=== PATIENT | female | born 1940 | race Caucasian/White ===

== ENCOUNTER 2016-06-18 07:48 | Emergency (ER) | payer BC ==
[~2016-06-18] VITALS: Ht 162.6 cm; Wt 100.6 kg
[~2016-06-18 07:48] MED LIST: ASPEC81 PO; CYAN10005 PO; INSDGI SC; LISI-725 PO; MAGN400T6 PO; METO50TA7 PO; NVLGI SC; PENT400T PO; SIMV40TA2 PO
[2016-06-18 07:57] VITALS: TEMP 37.6; Ht 162.6 cm; Wt 100.6 kg
[2016-06-18] MEDS ORDERED: POTA8CAP6 PO (08:22)
[2016-06-18] MEDS ORDERED: MAGNTAB4 PO (08:22)
[2016-06-18] MEDS ORDERED: INSDGI SC (08:22)
[2016-06-18] MEDS ORDERED: FURO-85 PO (08:22)
[2016-06-18] MEDS ORDERED: NVLG SC (08:22)
[2016-06-18] MEDS ORDERED: ASPI-435 (08:22)
[2016-06-18] MEDS ORDERED: ATOR10TA88 PO (08:22)
--- NOTE | 2016-06-18 08:41 | DIAGNOSTIC IMAGING REPORT ---
CHEST 2 VIEWS ROUTINE CLINICAL HISTORY: Cough. COMPARISON STUDY: Chest radiograph April 26, 2009. FINDINGS: Lung volumes are normal. There is no pneumothorax or pleural effusion. There are median sternotomy wires and clips from bypass grafting. There is no evidence of pulmonary edema. Linear left lung opacities favor atelectasis or scarring. There is no consolidation to suggest pneumonia. Cardiomegaly is unchanged. IMPRESSION: 1. No acute findings. 2. Linear left lung opacities suggestive of atelectasis or scarring. 3. Mild cardiomegaly without evidence of pulmonary edema. Electronically signed by: Jose Wong M.D. 06/18/2016 8:40 AM Dictated Date/Time: 06/18/2016 8:37 AM
[2016-06-18 08:45] LABS: HEMATOCRIT 37.9 % (37-47); MEAN CORPUSCULAR HEMOGLOBIN 32.8 pg (25-34); MEAN CORPUSCULAR HGB CONC 35.6 g/dl (32-36); MEAN PLATELET VOLUME 8.8 fL (7.4-10.4); PLATELET COUNT 223 K/uL (130-400); RED BLOOD COUNT 4.12 M/uL (4.2-5.4)
[2016-06-18 09:02] LABS: BUN/CREATININE RATIO 10.7 (10-20); CALCIUM 10.2 mg/dl (8.5-10.1); CREATININE 1.6 mg/dl (0.60-1.20); POTASSIUM 3.8 mmol/L (3.5-5.1)
[2016-06-18] MEDS ORDERED: VNTHFA/IN INH (09:17)
[2016-06-18] MEDS ORDERED: AZITTAB PO (09:17)
[2016-06-18] MEDS ORDERED: POLYSOL3 OPB (09:17)
[2016-06-18 09:18] LABS: BASO % 0.2 %; BASO ABS # 0.02 K/uL (0-0.2); COMPLETE YES; EOS % 1.3 %; IG% 0.2 %; LYMPH % 14.3 %; LYMPH ABS # 1.32 K/uL (1.2-3.4); MONO % 7.5 %; NEUT % 76.5 %
--- NOTE | 2016-06-18 09:18 | EMERGENCY ROOM VISIT NOTE ---
History First contact with patient: 08:04 Chief Complaint: COUGH Stated Complaint: COUGH,SORE THROAT Nursing Triage Summary: pt reports cough, congestio , watery eyes , with yellow green mucus production since night History of Present Illness The patient is a 75 year old female who presents to the Emergency Room with complaints of productive cough which started evening. She states she is coughing up some yellow-green sputum. She states that her throat is irritated due to the cough but is able to swallow fluids without difficulty. The patient also admits to runny nose and both her eyes being watery with her left eye being matted checked this morning. The patient is not known if she has had a fever because she went to use her thermometer and the battery was . The patient has not experienced any chills. The patient denies any chest pain or shortness of breath. The patient denies any diffuse body aches. Review of Systems 10 system review was performed and was negative unless stated otherwise history of present illness. Past Medical/Surgical History Diabetes, hypertension, heart disease, cholecystectomy, heart surgery, cataract surgery, trigger finger surgery 2 Social History Smoking Status: Never Smoker Alcohol Use: none Marital Status: single Housing Status: lives alone Occupation Status: retired Current/Historical Medications Scheduled Atorvastatin (Lipitor), 1 TAB PO DAILY Cyanocobalamin (Vitamin B-12), 1,000 MCG PO DAILY Furosemide (Lasix), 1 TAB PO DAILY Insulin Aspart (Novolog), 8 UNITS SC TIDM Insulin Glargine (Lantus), 10 UNITS SC HS Magnesium Chloride (Slow-Mag Tab), 64 MG PO DAILY Magnesium Oxide (Mag-Ox), 400 MG PO TID Metoprolol Succ (Toprol Xl) (Toprol-Xl), 50 MG PO HS Potassium Chloride (Klor-Con Ext Rel), 8 MEQ PO DAILY Miscellaneous Medications Aspirin (Aspirin 81) Allergies Coded Allergies: No Known Allergies (Verified , 07/05/06) Physical Exam Vital Signs Date Time Temp Pulse Resp B/P Pulse Ox O2 Delivery O2 Flow Rate FiO2 06/18/16 07:57 37.6 87 18 163/86 95 Room Air Physical Exam PHYSICAL EXAM: Vital Signs were reviewed: Temperature 37.6, blood pressure 163/ 86, pulse rate 87, respiratory rate 18 Reviewed Nurse's notes and agree. Oxygen saturation is 95 % on room air which is normal . GENERAL: 75 year old white female appears in no acute distress. MENTAL STATUS: Alert, oriented, coherent. EARS: Canals clear. TMs good light reflex, no erythema or fluid level noted. EYES: Left eye with redness and purulent drainage noted. Right eye with redness but no visible drainage. NOSE: Nasal mucosa with moderate erythema engorgement. PHARYNX: No erythema, no edema noted. No exudate noted. Airway is adequate. NECK: Supple, non-tender. No lymphadenopathy noted. LUNGS: Clear to auscultation without wheezes rales or rhonchi. The patient has a deep congested cough and ultimately throughout clinical encounter. CARDIAC: Regular rate and rhythm without murmur. SKIN: No rashes noted. Medical Decision & Procedures ER Provider Diagnostic Interpretation: CHEST 2 VIEWS ROUTINE CLINICAL HISTORY: Cough. COMPARISON STUDY: Chest radiograph April 26, 2009. FINDINGS: Lung volumes are normal. There is no pneumothorax or pleural effusion. There are median sternotomy wires and clips from bypass grafting. There is no evidence of pulmonary edema. Linear left lung opacities favor atelectasis or scarring. There is no consolidation to suggest pneumonia. Cardiomegaly is unchanged. IMPRESSION: 1. No acute findings. 2. Linear left lung opacities suggestive of atelectasis or scarring. 3. Mild cardiomegaly without evidence of pulmonary edema. Electronically signed by: Jose Wong M.D. 06/18/2016 8:40 AM Dictated Date/Time: 06/18/2016 8:37 AM Laboratory Results 06/18/16 08:10 Red Blood Count 4.12, Mean Corpuscular Volume 92.0, Mean Corpuscular Hemoglobin 32.8, Mean Corpuscular Hemoglobin Concent 35.6, Mean Platelet Volume 8.8 06/18/16 08:10 Test 06/18/16 08:10 White Blood Count 9.20 K/uL (4.8-10.8) Red Blood Count 4.12 M/uL (4.2-5.4) Hemoglobin 13.5 g/dL (12.0-16.0) Hematocrit 37.9 % (37-47) Mean Corpuscular Volume 92.0 fL (80-100) Mean Corpuscular Hemoglobin 32.8 pg (25-34) Mean Corpuscular Hemoglobin Concent 35.6 g/dl (32-36) Platelet Count 223 K/uL (130-400) Mean Platelet Volume 8.8 fL (7.4-10.4) RDW Standard Deviation 44.2 fL (36.4-46.3) RDW Coefficient of Variation 13.2 % (11.5-14.5) Anion Gap 11.0 mmol/L (3-11) Est Creatinine Clear Calc Drug Dose 35.6 ml/min Estimated GFR () 36.4 Estimated GFR (Non- 31.4 BUN/Creatinine Ratio 10.7 (10-20) Calcium Level 10.2 mg/dl (8.5-10.1) ED Course The patient was evaluated. IV access was obtained. CBC and differential and renal profile was ordered. Chest x-ray was ordered and interpreted by the radiologist myself as above had any acute findings.. Labs are reviewed and were unremarkable. The patient was independently evaluated by who agrees with treatment plan. The patient was discharged home in stable condition. Impression Primary Impression: Bacterial conjunctivitis of both eyes Additional Impression: Acute bronchitis Departure Information Dispostion Home / Self-Care Condition GOOD Prescriptions Albuterol Hfa (VENTOLIN HFA) 200 Puffs/77748 Mcg Aers 2 PUFFS INH QID for 5 Days, #1 INHALER Prov: Yesica Daley PA-C 06/18/16 Azithromycin (ZITHROMAX Z-CRISTIAN) 250 Mg Tab 0 PO UD, #1 PKT Prov: Yesica Daley PA-C 06/18/16 Polymyxin B-Trimethoprim (POLYTRIM OPH IVANA) 1 Ivana Ivana 1 DROPS OPB Q3hrs for 7 Days, #10 ML Prov: Yesica Daley PA-C 06/18/16 Referrals Demi Seymour M.D. (PCP) Forms HOME CARE DOCUMENTATION FORM, IMPORTANT VISIT INFORMATION Patient Instructions Bronchitis Acute, [facility] Additional Instructions Tylenol as needed for fever. Take Z-Cristian as directed. Use albuterol inhaler 2 puffs every 4 hours for 5 days then 2 puffs every 4 hours as needed. Recommend [id number] plain Mucinex as directed on the label. Use the Polytrim eyedrops as directed 1 drop into each eye every 3 hours while awake for 7 days. Frequent handwashing. Follow up with your family doctor in 2 days for recheck. If symptoms worsen in the interim, return to ER. Problem Qualifiers Additional Impression: Acute bronchitis Bronchitis organism: unspecified organism Qualified Codes: J20.9 - Acute bronchitis, unspecified
--- NOTE | 2016-06-18 09:31 | EMERGENCY ROOM VISIT NOTE ---
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 75-year-old presents consistent with viral syndrome and likely secondary bacterial infection characterized by conjunctivitis. She does not or glasses. Coarse sounding lungs. There is management and plan for Z-Cristian as well as antibiotics for conjunctivitis complemented by albuterol MDI when necessary.
[2016-06-18 09:35] VITALS: BP 147/70; PULSE 85; O2SAT 93
== END 2016-06-18 09:36 | disposition home or self-care (01) ==
LOC: C.EDB 07:49 → C.EDA 09:36
DX: J20.9 Acute bronchitis, unspecified (principal); E11.9 Type 2 diabetes mellitus without complications; I10 Essential (primary) hypertension; I51.9 Heart disease, unspecified; Z90.49 Acquired absence of other specified parts of digestive tract; Z79.4 Long term (current) use of insulin

== ENCOUNTER → 2016-06-26 | Outpatient (CLI) | payer BC ==
[~2016-06-26] MED LIST changes: -ASPEC81 PO; +ASPI-435; +ATOR10TA88 PO; +AZITTAB PO; +FURO-85 PO; -LISI-725 PO; +MAGNTAB4 PO; +NVLG SC; -NVLGI SC; -PENT400T PO; +POLYSOL3 OPB; +POTA8CAP6 PO; -SIMV40TA2 PO
--- NOTE | 2016-06-26 15:14 | MAMMOGRAPHY REPORT ---
BILATERAL DIGITAL SCREENING MAMMOGRAM WITH CAD: 06/26/2016 CLINICAL HISTORY: Routine screening examination. TECHNIQUE: Bilateral CC and MLO views were obtained. Current study was also evaluated with a Comput er Aided Detection (CAD) system. COMPARISON: Comparison is made to exams dated: 06/23/2015 mammogram, 06/22/2014 mammogram, 06/20/2013 mammogram, 06/12/2011 mammogram, 06/09/2010 mammogram, and 06/08/2009 mammogram - [facility] nter. BREAST COMPOSITION: There are scattered areas of fibroglandular density in both breasts. FINDINGS: There are benign rodlike secretory calcifications in both breasts. No suspicious mass, a rchitectural distortion or cluster of microcalcifications is seen. IMPRESSION: ACR BI-RADS CATEGORY 2: BENIGN There is no mammographic evidence of malignancy. A 1 year screening mammogram is recommended. The p atient will receive written notification of the results. Approximately 10% of breast cancers are not detected with mammography. A negative mammographic repor t should not delay biopsy if a clinically suggestive mass is present. Elana Denny M.D. ay/:06/26/2016 15:02:17 Ross Lift Operator: Paige NICOLAS(Andrea)(Jose Alfredo)(BD), [facility] letter sent: Normal 1/2 BI-RADS Code: ACR BI-RADS Category 2: Benign
== END | disposition home or self-care (01) ==
LOC: C.MAMM 14:20
PROVIDERS: ATTEND Family Medicine
DX: Z12.31 Encounter for screening mammogram for malignant neoplasm of breast (principal)

== ENCOUNTER → 2016-10-26 | Outpatient (CLI) | payer BC ==
[~2016-10-26] MED LIST changes: +ATOR10TA82 PO; -ATOR10TA88 PO; -AZITTAB PO; -POLYSOL3 OPB
[2016-10-26 12:17] LABS: HEMATOCRIT 41.1 % (37-47); MEAN CELL VOLUME 96.7 fL (80-100); MEAN CORPUSCULAR HEMOGLOBIN 33.4 pg (25-34); MEAN CORPUSCULAR HGB CONC 34.5 g/dl (32-36); MEAN PLATELET VOLUME 9.4 fL (7.4-10.4); PLATELET COUNT 250 K/uL (130-400); RED BLOOD COUNT 4.25 M/uL (4.2-5.4); WHITE BLOOD COUNT 6.49 K/uL (4.8-10.8)
[2016-10-26 12:19] LABS: URINE APPEARANCE CLEAR (CLEAR); URINE BILIRUBIN NEG (NEG); URINE COLOR YELLOW; URINE EPITHELIAL CELL AUTO >30 /lpf (0-5); URINE NITRITE NEG (NEG); URINE PH 6.5 (4.5-7.5); URINE SPECIFIC GRAVITY 1.017 (1.000-1.030); UROBILINOGEN NEG (NEG)
[2016-10-26 12:24] LABS: MANUAL MICROSCOPIC REQUIRED? NO; REVIEW REQ? NO
[2016-10-26 12:39] LABS: ESTIMATED AVERAGE GLUCOSE 171 mg/dl; HA1C FLAG Normal (Normal)
[2016-10-26 12:43] LABS: URINE PROTIEN/CREAT RATIO 0.5 (0-0.2); URINE TOTAL PROTEIN 45.5 mg/dl (0-11.9)
[2016-10-26 12:53] LABS: BLOOD UREA NITROGEN 32 mg/dl (7-18); BUN/CREATININE RATIO 18.7 (10-20); CALCIUM 10.1 mg/dl (8.5-10.1); CARBON DIOXIDE 27 mmol/L (21-32); CHLORIDE 107 mmol/L (98-107); GLUCOSE 188 mg/dl (70-99); MAGNESIUM 2.4 mg/dl (1.8-2.4); POTASSIUM 4.1 mmol/L (3.5-5.1); SODIUM 143 mmol/L (136-145)
[2016-10-26 12:55] LABS: ALKALINE PHOSPHATASE 118 U/L (45-117); ALT/SGPT 16 U/L (12-78); AST/SGOT 12 U/L (15-37)
[2016-10-27 16:35] LABS: FREE KAPPA 37.9 MG/L (3.3-19.4); FREE KAPPA/LAMBDA RATIO 1.25 (0.26-1.65); FREE LAMBDA 30.3 MG/L (5.7-26.3)
== END | disposition home or self-care (01) ==
LOC: C.LABBFT 09:56
PROVIDERS: ATTEND Internal Medicine Nephrology
DX: N18.3 Chronic kidney disease, stage 3 (moderate) (principal); R60.9 Edema, unspecified; E83.52 Hypercalcemia; I10 Essential (primary) hypertension; E55.9 Vitamin D deficiency, unspecified; E11.49 Type 2 diabetes mellitus with other diabetic neurological complication

== ENCOUNTER → 2017-04-24 | Outpatient (CLI) | payer BC ==
[2017-04-24 12:38] LABS: URINE APPEARANCE CLEAR (CLEAR); URINE BILIRUBIN NEG (NEG); URINE COLOR YELLOW; URINE EPITHELIAL CELL AUTO >30 /lpf (0-5); URINE NITRITE NEG (NEG); URINE PH 6.5 (4.5-7.5); URINE SPECIFIC GRAVITY 1.016 (1.000-1.030); UROBILINOGEN NEG (NEG)
[2017-04-24 12:39] LABS: HEMATOCRIT 42.1 % (37-47); MEAN CELL VOLUME 96.8 fL (80-100); MEAN CORPUSCULAR HEMOGLOBIN 32.9 pg (25-34); MEAN PLATELET VOLUME 9.7 fL (7.4-10.4); PLATELET COUNT 255 K/uL (130-400); RED BLOOD COUNT 4.35 M/uL (4.2-5.4); WHITE BLOOD COUNT 6.31 K/uL (4.8-10.8)
[2017-04-24 12:42] LABS: MANUAL MICROSCOPIC REQUIRED? NO; REVIEW REQ? NO
[2017-04-24 13:14] LABS: BLOOD UREA NITROGEN 30 mg/dl (7-18); BUN/CREATININE RATIO 21.6 (10-20); CALCIUM 10.4 mg/dl (8.5-10.1); CARBON DIOXIDE 26 mmol/L (21-32); CHLORIDE 109 mmol/L (98-107); CREATININE 1.38 mg/dl (0.60-1.20); GLUCOSE 114 mg/dl (70-99); MAGNESIUM 2.3 mg/dl (1.8-2.4); POTASSIUM 3.9 mmol/L (3.5-5.1); SODIUM 140 mmol/L (136-145)
[2017-04-24 13:17] LABS: CHOLESTEROL 160 mg/dl (0-200); CHOLESTEROL/HDL RATIO 1.9; ESTIMATED AVERAGE GLUCOSE 151 mg/dl; HA1C FLAG Normal (Normal); HDL CHOLESTEROL 85 mg/dl; LDL CHOLESTEROL CALCULATED 53 mg/dl; PHOSPHORUS 2.5 mg/dl (2.5-4.9); TRIGLYCERIDES 108 mg/dl (0-150); VERY LOW DENSITY LIPOPROT CALC 22 mg/dl
[2017-04-24 13:46] LABS: CREATININE, URINE 69.9 mg/dl; URINE TOTAL PROTEIN < 5.0 mg/dl (0-11.9)
== END | disposition home or self-care (01) ==
LOC: C.LABBFT 09:51
PROVIDERS: ATTEND Family Medicine
DX: I10 Essential (primary) hypertension (principal); N18.3 Chronic kidney disease, stage 3 (moderate); R60.9 Edema, unspecified; E55.9 Vitamin D deficiency, unspecified; E78.5 Hyperlipidemia, unspecified; E11.29 Type 2 diabetes mellitus with other diabetic kidney complication

== ENCOUNTER → 2017-06-28 | Outpatient (CLI) | payer BC ==
[~2017-06-28] MED LIST changes: -METO50TA7 PO; +METO50TA8 PO
--- NOTE | 2017-06-29 14:41 | MAMMOGRAPHY REPORT ---
BILATERAL DIGITAL SCREENING MAMMOGRAM TOMOSYNTHESIS WITH CAD: 06/28/2017 CLINICAL HISTORY: Routine screening. Patient has no complaints. TECHNIQUE: Breast tomosynthesis in addition to standard 2D mammography was performed. Current study was also evaluated with a Computer Aided Detection (CAD) system. COMPARISON: Comparison is made to exams dated: 06/26/2016 mammogram, 06/23/2015 mammogram, 06/22/2014 m ammogram, 06/20/2013 mammogram, 06/17/2012 mammogram, and 06/12/2011 mammogram - [facility] nter. BREAST COMPOSITION: There are scattered areas of fibroglandular density in both breasts. FINDINGS: There are benign appearing rodlike calcifications in both breasts. Stable nodularity of t he right breast. No suspicious spiculated or irregular mass, architectural distortion or cluster of n ew, suspicious microcalcifications is seen. IMPRESSION: ACR BI-RADS CATEGORY 2: BENIGN There is no mammographic evidence of malignancy. A 1 year screening mammogram is recommended. The pa tient will receive written notification of the results. Approximately 10% of breast cancers are not detected with mammography. A negative mammographic report should not delay biopsy if a clinically suggestive mass is present. Elana Denny M.D. ay/:06/28/2017 15:24:55 Straw Boss: Lida NICOLAS(Andrea)(M), [facility] letter sent: Normal 1/2 BI-RADS Code: ACR BI-RADS Category 2: Benign
== END | disposition home or self-care (01) ==
LOC: C.MAMM 13:12
PROVIDERS: ATTEND Family Medicine
DX: Z12.31 Encounter for screening mammogram for malignant neoplasm of breast (principal)

== ENCOUNTER → 2017-11-26 | Outpatient (CLI) | payer BC ==
[~2017-11-26] MED LIST changes: +ACET-1256 PO; +ALLEGRA PO; +AMLO5TAB3 PO; -ASPI-435; +ASPI-435 PO; +ATOR-24 PO; -ATOR10TA82 PO; +CHOL1000 PO; +CILO100T PO; +FLUT0.15 INTNAS; -MAGNTAB4 PO; +OMEG10007 PO; +POTA-639 PO; -POTA8CAP6 PO; +VNTHFA/IN INH
[2017-11-26 15:45] LABS: BASO % 0.3 %; BASO ABS # 0.02 K/uL (0-0.2); EOS % 2.1 %; EOS ABS # 0.13 K/uL (0-0.5); HEMATOCRIT 40.9 % (37-47); HEMOGLOBIN 13.9 g/dL (12.0-16.0); IG# 0.01 K/uL (0.00-0.02); LYMPH % 24.1 %; LYMPH ABS # 1.49 K/uL (1.2-3.4); MEAN CELL VOLUME 96.5 fL (80-100); MEAN CORPUSCULAR HEMOGLOBIN 32.8 pg (25-34); MEAN PLATELET VOLUME 9.1 fL (7.4-10.4); MONO % 8.1 %; NEUT % 65.2 %; NEUT ABS # 4.02 K/uL (1.4-6.5); PLATELET COUNT 284 K/uL (130-400); RED CELL DISTRIBUTION WIDTH CV 13.5 % (11.5-14.5); RED CELL DISTRIBUTION WIDTH SD 47.3 fL (36.4-46.3); WHITE BLOOD COUNT 6.17 K/uL (4.8-10.8)
--- NOTE | 2017-11-26 15:45 | DIAGNOSTIC IMAGING REPORT ---
CHEST 2 VIEWS ROUTINE CLINICAL HISTORY: Preoperative evaluation. COMPARISON STUDY: Chest radiograph the 2016. FINDINGS: Note is made of median sternotomy wires and mediastinal surgical clips. Moderate cardiomegaly is unchanged. There is no evidence for pulmonary edema. No pneumothorax or pleural effusion is noted. There is no consolidation to suggest pneumonia. Linear left midlung opacity reflects atelectasis or scarring. The appearance of the chest is unchanged. IMPRESSION: No acute cardiopulmonary findings. No change in appearance of the chest. Electronically signed by: Jose Wong M.D. 11/26/2017 3:44 PM Dictated Date/Time: 11/26/2017 3:42 PM
[2017-11-26 16:37] LABS: BLOOD UREA NITROGEN 24 mg/dl (7-18); CALCIUM 10.6 mg/dl (8.5-10.1); CARBON DIOXIDE 26 mmol/L (21-32); GLUCOSE 226 mg/dl (70-99); POTASSIUM 4.2 mmol/L (3.5-5.1); SODIUM 140 mmol/L (136-145)
[2017-11-27 06:34] LABS: HEMOGLOBIN A1C 6.8 % (4.5-5.6)
== END | disposition home or self-care (01) ==
LOC: C.CPL 14:58
PROVIDERS: ATTEND Orthopaedic Surgery Sports Medicine
DX: Z01.818 Encounter for other preprocedural examination (principal)

== ENCOUNTER 2020-08-26 05:25 | Inpatient (IN) ==
--- NOTE | 2020-08-13 09:26 | Anesthesiology Consultation ---
Date of Service August 13, 2020 Assessment & Plan (1) Encounter for pre-operative examination: Chart Review Chart Review: Acceptable Risk for Surgery (pending anesthesia evaluation DOS and preop Covid testing results ) and Patient NOT seen in Pre Admission Testing - Check BSG AM DOS Per nursing assessment 08/12/20, patient resides in [facility]. Wears mask, uses good hand hygiene and socially distances. No known Covid positive contacts or Covid related symptoms. No known Covid infection in the past 90 days. Preop Covid testing scheduled 08/20/20= will await results. Patient seen by cardiology 07/15/2020 = patient seen for cardiology follow-up. Recently diagnosed with right-sided colon cancerplanning to undergo surgery for this with general surgery. General surgeon will discuss with vascular surgeon if implantation of IVC filter needed prior to surgery in light of DVT. Currently on anticoagulation but will need held for surgery. Patient currently with HOPPER. Recent CT scan of chest showed no PE. Does have longstanding history of CAD. HOPPER possibly related to anemia. Metoprolol increased. DSE ordered. Addendum to cardio note 08/03/2020 = DSE from 08/03/2020 showed normal response to stress. No evidence of ischemia. MPHR 84% with no cardiac symptoms reported. "Based on a dobutamine stress echo reports the patient is an acceptable cardiac risk to undergo her GI surgery procedure. Her Eliquis can be held starting 3 days prior to the procedure. It can be restarted after surgery after at least 48 hours post procedure as long as there is no significant postoperative bleeding. She should remain on her usual cardiac medications throughout the perioperative course. The morning of surgery she should take her usual cardiac medications with a sip of water." Right breast partial mastectomy with needle localization, SLN biopsy 08/24/2018 = done under [place] with LMA #4x3 attempts/good seal/atraumatic. History Surgery Operation Date: 08/26/20 07:00 Proposed Procedures p Laparoscopic Possible Open Right Hemicolectomy - Sohail Quiroga DO s Hysteroscopy - Cathy Calderon DO s Dilation and Curettage, Possible Polypectomy - Cathy Calderon DO Height/Weight Height: 5 ft 5 in Weight: 99.79 kg Allergies Allergy/AdvReac Type Severity Reaction Status Date / Time diclofenac Allergy Unknown ankle Verified 08/12/20 15:43 swelling JESSICA Inhibitors AdvReac Intermediate ARF Verified 08/12/20 15:43 iron AdvReac Mild nausea/ Verified 08/12/20 15:43 VOMITING Medications Home Medications Medication Instructions Recorded Confirmed Last Taken cyanocobalamin (vitamin B-12) 1,000 mcg PO QAM 12/28/17 08/12/20 06/27/20 fluticasone propionate [Flonase 2 spray INTRANASAL DAILY PRN 12/28/17 08/12/20 Unknown Allergy Relief] magnesium oxide 400 mg PO BID 12/28/17 08/12/20 08/28/18 18:00 omega 8-[id number]-[id number]-fish oil [Fish Oil] 1 cap PO QPM 12/28/17 08/12/20 06/27/20 albuterol sulfate 90 mcg/actuation 2 puff INHALATION Q6H PRN 10/02/18 08/12/20 Unknown aerosol inhaler fexofenadine 60 mg tablet 60 mg PO DAILY PRN 10/02/18 08/12/20 Unknown pen needle, diabetic 31 gauge x #30 ea 11/22/18 08/06/20 Unknown 5/16" tamoxifen 20 mg tablet 20 mg PO HS 04/25/19 08/12/20 06/27/20 potassium chloride 20 mEq 20 meq PO QAM #90 tab 10/23/19 08/12/20 06/27/20 tablet,extended release(part/cryst) insulin glargine 100 unit/mL 60 unit SUBCUT HS 90 Days #54 ml 11/26/19 08/12/20 06/27/20 subcutaneous solution 20 units alendronate 70 mg tablet 70 mg PO WEEKLY #12 tab 05/10/20 08/12/20 06/27/20 09:00 bumetanide 0.5 mg PO QDL 06/21/20 08/12/20 06/27/20 bumetanide 1 mg PO QAM 06/21/20 08/12/20 06/27/20 cilostazol 100 mg PO BID 06/21/20 08/12/20 06/28/20 hydralazine 25 mg PO TID 06/21/20 08/12/20 06/28/20 hydralazine 50 mg PO TID 06/21/20 08/12/20 06/28/20 insulin aspart U-100 [Novolog 0 unit SQ TID 06/21/20 08/12/20 06/27/20 17:00 Flexpen U-100 Insulin] 13 units isosorbide mononitrate 30 mg PO QAM 06/21/20 08/12/20 06/27/20 isosorbide mononitrate 60 mg PO QAM 06/21/20 08/12/20 06/27/20 apixaban 5 mg tablet 5 mg PO BID #60 tab 07/11/20 08/12/20 Unknown aspirin 81 mg tablet,delayed 81 mg PO QPM 07/15/20 08/12/20 Unknown release metoprolol succinate 100 mg 150 mg PO BID #270 tab 07/15/20 08/12/20 Unknown tablet,extended release 24 hr bumetanide 0.5 mg tablet 0.5 mg PO QPM #90 tab 07/27/20 08/12/20 Unknown nystatin 100,000 unit/gram topical 1 applic TOPICAL BID #30 g 08/06/20 08/12/20 Unknown powder atorvastatin 40 mg PO HS 08/12/20 08/12/20 Unknown diclofenac sodium [Voltaren] 2 g TOPICAL BID PRN 08/12/20 08/12/20 Unknown Past Medical History Medical History (Updated 08/13/20 @ 10:05 by Sia Smith PA-C) Anemia Mild- has been evaluated by heme/onc for recent dx colon cancer CAD (coronary artery disease) s/p 3 vessel CABG 2006 Chronic kidney disease STAGE 3-F/U DR LIND Last seen by nephro 07/20/20- kidney function stable at that time DVT (deep venous thrombosis) Right upper leg DVT -- March 2020 -- placed on eliquis.-NO ISSUES SINCE Recent u/s from 07/07/20= shows continued evidence of right common femoral DVT. Hx of acute respiratory failure WITH GB SURG 04/21/09 [facility] POST OP RESPIRATORY FAILURE-HAD TO BE VENTILATED,EXTUBATED NEXT DAY-PER PT SLOW TO WAKE UP IN GENERAL Right breast partial mastectomy 08/29/18 under [place] with LMA #4 x 3 attempts- atraumatic with good seal- no other issues noted Hx of breast cancer right breast (Jun 2018). surgical intervention + radiation therapy Hyperlipidemia Hypertension Lumbar spinal stenosis Osteoarthritis Peripheral vascular disease On Pletal Type 2 diabetes, controlled, with renal manifestation Venous stasis dermatitis LLE Past Family History Family History Mother , age 38 heart disease due to rheumatic fever No problems noted. Father , age 73 heart disease No problems noted. Sister No problems noted. Sister No problems noted. Sister No problems noted. Sister No problems noted. Sister No problems noted. Daughter Myocardial infarction Breast cancer Family history of reaction to anesthesia SLOW TO WAKE UP/PONV Daughter Heart disease Other No family history of adverse response to anesthesia Denies family history of Ovarian cancer Prostate cancer Colorectal cancer Past Surgical History Surgical History (Updated 08/13/20 @ 09:52 by Sia Smith PA-C) History of adverse response to anesthesia SLOW TO WAKE. PT HAD RESP FAILURE S/P KYLAH IN 2008 History of bilateral tubal ligation History of cardiac cath 2006 NO STENTS-[facility] History of cataract surgery BL History of cholecystectomy History of coronary artery bypass graft 3 VESSELS 2006-[facility] History of dilatation and curettage History of esophagogastroduodenoscopy (EGD) History of Moh's micrographic surgery for skin cancer History of partial mastectomy of right breast History of total knee replacement LEFT 2017. S/P epidural steroid injection S/P tendon repair R ARM Status post trigger finger release X2 Social History Smoking Status: Never smoker Do You Dip or Chew Tobacco: No Hx Alcohol Use: Yes Alcohol type: hard liquor alcohol intake frequency: holidays/special occasions only Hx Substance Use: No substance use type: does not use Testing Laboratory Results Laboratory Tests 04/07/20 06/28/20 07/15/20 12:09 15:24 13:22 WBC 4.55 L Hgb 10.1 L Hct 30.5 L Plt Count 204 PT 9.9 INR 1.0 Sodium Potassium Chloride Carbon Dioxide BUN Creatinine Glucose Hemoglobin A1c 5.7 H 07/15/20 13:22 WBC Hgb Hct Plt Count PT INR Sodium 143 Potassium 4.3 Chloride 114 H Carbon Dioxide 21 BUN 45 H Creatinine 1.97 H Glucose 130 H Hemoglobin A1c Anemia chronic and stable since Apr 2020 CKD chronic and stable with BUN and creat 07/15/20= UA: 2+ leukocyte esterase, 1030 urine WBC, >30 urine epithelial cells, 1+ urine bacteria, 12.7 urine random total protein Electrocardiogram Date: 08/03/20 Findings: + NSR @ (77 bpm) Left axis deviation. Incomplete left bundle branch block. When compared to EKG from July 24, 2017no significant changes found per cardio. Echocardiogram Date: 07/25/19 EF: 60-65% LV Function: normal Other Findings: + LVH (Mild/concentric) and + diastolic dysfunction (Grade 1) Valvular Disease: + no significant valvular disease Mild left atrial dilation. No evidence of elevated right heart pressures. When compared to resting echocardiogram performed October 30, 2017 there is no significant interval change. Stress Test Date: 08/03/20 Type: DSE Resting EF: 60-65% Resting LV Function: normal Resting RWMA: + none Valvular Disease: no significant valvular disease Negative dobutamine stress echo for myocardial ischemia at 84% of MPHR. No dobutamine induced chest pain. No EKG changes. Mild concentric LVH. Left atrium mildly dilated. Right atrium mildly dilated. Other Testing Chest CT 07/05/2020 = no filling defects identified in the central pulmonary vessels indicate PE. Patient is status post midline sternotomy. No airspace consolidation or pleural effusion. Foci of scarring/atelectasis are noted in the lung bases. 3 mm focus of nodularity in the right middle lobe. 3 mm nodule focus in the right upper lobe. Both nodules have been present dating back to 2006. Trachea and central airways are clear. No mediastinal lymphadenopathy.
[2020-08-26] MEDS ORDERED: SODIUM CHLORIDE 0.9% 1000ML 1,000 ML IV SCH (06:00)
[2020-08-26] MEDS ORDERED: ceFAZolin 2000MG 2,000 MG/15 ML SYR IV SCH (06:00)
[2020-08-26] MEDS ORDERED: HEPARIN SOD 5,000 UNIT/0.5 ML VIAL SQ SCH (06:00)
--- NOTE | 2020-08-26 06:45 | History & Physical Report ---
Date of Service August 26, 2020 Assessment & Plan (1) Anemia: (2) Mass of colon: She is here today for attempted laparoscopic resection which would include a right hemicolectomy and surgery as needed. Dr. Johnson also be performing a fractional D&C today. She has considerable comorbidities making her at least a moderate surgical risk. We discussed all these risks which include bleeding, infection, anastomotic leak or stricture, injury to another organ such as bowel bladder ureter etc., DVT, PE, DC, CVA and even . Following our discussion I answered all of her questions. We will proceed today with laparoscopic/possible open right hemicolectomy. History of Present Illness Primary Care Provider: Bandar Conrad, DO 79-year-old female who was worked up for anemia and found to have multiple gross on the right side of the colon. There was some questionable labeling issues with the biopsies but after long discussion with Dr. Driscoll he feels strongly that there is a near obstructing colon cancer in the right colon. She is here today for resection. She has no new symptoms since her visit with me in the office. Allergies Allergy/AdvReac Type Severity Reaction Status Date / Time diclofenac Allergy Unknown ankle Verified 08/26/20 06:01 swelling JESSICA Inhibitors AdvReac Intermediate ARF Verified 08/26/20 06:01 iron AdvReac Mild nausea/ Verified 08/26/20 06:01 VOMITING Home Medications Medication Instructions Recorded Confirmed Type cyanocobalamin (vitamin B-12) 1,000 mcg PO QAM 12/28/17 08/12/20 History fluticasone propionate [Flonase 2 spray INTRANASAL DAILY PRN 12/28/17 08/26/20 History Allergy Relief] magnesium oxide 400 mg PO BID 12/28/17 08/26/20 History omega 1-nwc-pkh-fish oil [Fish Oil] 1 cap PO QPM 12/28/17 08/26/20 History albuterol sulfate 90 mcg/actuation 2 puff INHALATION Q6H PRN 10/02/18 08/26/20 History aerosol inhaler fexofenadine 60 mg tablet 60 mg PO DAILY PRN 10/02/18 08/26/20 History pen needle, diabetic 31 gauge x #30 ea 11/22/18 08/06/20 History 5/16" tamoxifen 20 mg tablet 20 mg PO HS 04/25/19 08/26/20 History potassium chloride 20 mEq 20 meq PO QAM #90 tab 10/23/19 08/26/20 Rx tablet,extended release(part/cryst) insulin glargine 100 unit/mL 60 unit SUBCUT HS 90 Days #54 ml 11/26/19 08/26/20 Rx subcutaneous solution alendronate 70 mg tablet 70 mg PO WEEKLY #12 tab 05/10/20 08/26/20 Rx bumetanide 0.5 mg PO QDL 06/21/20 08/26/20 History bumetanide 1 mg PO QAM 06/21/20 08/26/20 History cilostazol 100 mg PO BID 06/21/20 08/26/20 History hydralazine 25 mg PO TID 06/21/20 08/26/20 History hydralazine 50 mg PO TID 06/21/20 08/26/20 History insulin aspart U-100 [Novolog 0 unit SQ TID 06/21/20 08/26/20 History Flexpen U-100 Insulin] isosorbide mononitrate 30 mg PO QAM 06/21/20 08/26/20 History isosorbide mononitrate 60 mg PO QAM 06/21/20 08/26/20 History apixaban 5 mg tablet 5 mg PO BID #60 tab 07/11/20 08/26/20 Rx aspirin 81 mg tablet,delayed 81 mg PO QPM 07/15/20 08/26/20 History release metoprolol succinate 100 mg 150 mg PO BID #270 tab 07/15/20 08/26/20 Rx tablet,extended release 24 hr bumetanide 0.5 mg tablet 0.5 mg PO QPM #90 tab 07/27/20 08/26/20 Rx nystatin 100,000 unit/gram topical 1 applic TOPICAL BID #30 g 08/06/20 08/26/20 Rx powder atorvastatin 40 mg PO HS 08/12/20 08/26/20 History diclofenac sodium [Voltaren] 2 g TOPICAL BID PRN 08/12/20 08/26/20 History Past Med/Surg History Medical History Anemia Mild- has been evaluated by heme/onc for recent dx colon cancer CAD (coronary artery disease) s/p 3 vessel CABG 2006 Chronic kidney disease STAGE 3-F/U DR LIND Last seen by nephro 07/20/20- kidney function stable at that time DVT (deep venous thrombosis) Right upper leg DVT -- March 2020 -- placed on eliquis.-NO ISSUES SINCE Recent u/s from 07/07/20= shows continued evidence of right common femoral DVT. Hx of acute respiratory failure WITH GB SURG 04/21/09 [facility] POST OP RESPIRATORY FAILURE-HAD TO BE VENTILATED,EXTUBATED NEXT DAY-PER PT SLOW TO WAKE UP IN GENERAL Right breast partial mastectomy 08/29/18 under [facility] with LMA #4 x 3 attempts- atraumatic with good seal- no other issues noted Hx of breast cancer right breast (Jun 2018). surgical intervention + radiation therapy Hyperlipidemia Hypertension Lumbar spinal stenosis Osteoarthritis Peripheral vascular disease On Pletal Type 2 diabetes, controlled, with renal manifestation Venous stasis dermatitis LLE Surgical History History of adverse response to anesthesia SLOW TO WAKE. PT HAD RESP FAILURE S/P [facility]LA[facility] IN 2008 History of bilateral tubal ligation History of cardiac cath 2006 NO STENTS-[facility] History of cataract surgery BL History of cholecystectomy History of coronary artery bypass graft 3 VESSELS 2006-[facility] History of dilatation and curettage History of esophagogastroduodenoscopy (EGD) History of Moh's micrographic surgery for skin cancer History of partial mastectomy of right breast History of total knee replacement LEFT 2017. S/P epidural steroid injection S/P tendon repair R ARM Status post trigger finger release X2 Family History Mother , age 38 heart disease due to rheumatic fever No problems noted. Father , age 73 heart disease No problems noted. Sister No problems noted. Sister No problems noted. Sister No problems noted. Sister No problems noted. Sister No problems noted. Daughter Myocardial infarction Breast cancer Family history of reaction to anesthesia SLOW TO WAKE UP/PONV Daughter Heart disease Other No family history of adverse response to anesthesia Denies family history of Ovarian cancer Prostate cancer Colorectal cancer Social History Smoking Status: Never smoker Second Hand Exposure: Yes (SPOUSE SMOKED); Do You Dip or Chew Tobacco: No; Hx Alcohol Use: Yes Alcohol type: hard liquor Hx Substance Use: No Preferred Language: Kiswahili Communication Ability: Effective Visual Impairment: No Limitations Nurse Epidemiologist Required: No Beliefs That Will Affect Care: None marital status: / Current Living Situation: Alone Other Information That Helps Us Care for You: No Feels Safe at Home: Yes Safety Concerns: Feels Safe At This Time Dental Care, Regularly: No Seatbelt Use: always Assistive Devices: Denture - Upper, Denture - Lower and Glasses Review of Systems All systems reviewed & are unremarkable except as noted in HPI & below Physical Exam Constitutional: WD/WN, vitals as above no acute distress and not ill appearing Eyes: PERRL, conjunctivae normal, anicteric sclerae EOM intact bilaterally ENMT: external ear and nose normal, oropharynx normal Ears: no hearing impairment Neck: trachea midline, no thyromegaly Respiratory: normal respiratory effort; no respiratory distress and does not use accessory muscles Cardiovascular: Rate/Rhythm: regular rate and regular rhythm Gastrointestinal (Abdomen): Soft nontender. No palpable abnormalities. Large right upper quadrant incision from a prior open cholecystectomy Skin: no rashes, warm and dry Psychiatric: Orientation: alert, oriented x 3 and cooperative Results & Data ([place]) Vital Signs (Past 12 Hours) Vital Signs Temp Pulse Resp BP Pulse Ox 08/26/20 06:16 36.5 C 77 20 213/79 H 96
[2020-08-26] MEDS ORDERED: fentaNYL citrate 100 MCG/2 ML VIAL ONE ×3 (06:47→09:59)
--- NOTE | 2020-08-26 06:50 | History & Physical Bridge Note ---
Date of Service August 26, 2020 History & Physical Bridge Note I have examined the patient, reviewed the History & Physical and in the interval since the performance of the History & Physical I have noted the following changes of clinical significance: no changes noted
[2020-08-26] MEDS ORDERED: BUPIVACAINE/EPINEPHRINE 0.5% MPF 1:200,000 30 ML VIAL ONE (06:53)
[2020-08-26] MEDS ORDERED: ePHEDrine sulfate 50 MG/ML AMP IV PRN (06:59)
[2020-08-26] MEDS ORDERED: fentaNYL citrate 100 MCG/2 ML VIAL IV PRN (06:59)
[2020-08-26] MEDS ORDERED: PROMETHAZINE HCL 12.5 MG in SODIUM CHLORIDE 0.9% 50 ML IV PRN (06:59)
[2020-08-26] MEDS ORDERED: ONDANSETRON INJ 2 MG/ML 2 ML VIAL IV PRN (06:59)
[2020-08-26] MEDS ORDERED: METOCLOPRAMIDE HCL INJ 5 MG/ML 2 ML VIAL IV PRN (06:59)
[2020-08-26] MEDS ORDERED: ATROPINE SULFATE 0.1 MG/ML 10ML SYR IV PRN (06:59)
--- NOTE | 2020-08-26 07:57 | Operative Report ---
[facility] Post Operative Report Pre & Post Diagnosis Operation Date: 08/26/20 07:00 Pre-Op Diagnosis: Thickened endometrium - on tamoxifen, Right Colon Mass, Diabetes I identified the patient and participated in the time-out.: Yes Procedure Operation Date: 08/26/20 07:00 Actual Procedures p Hysteroscopy First Procedure(Not Applicable) - Cathy Calderon DO s Dilation and Curettage, Possible Polypectomy(Not Applicable) - DO bre Soriano Laparoscopic Possible Open Right Hemicolectomy - Sohail Quiroga DO Surgeon Cathy Calderon, Children'S Librarian none Estimated Blood Loss 5 Findings Consistent with Post-Op Diagnosis Thickened endometrium, bilateral tubal ostia seen Fluids 300ml fluid deficit Specimens endometrial curettings Drains sims, clear yellow Anesthesia Type General Complications none Disposition Accompanied Patient To Recovery: No Indications Patient is a 79-year-old with thickened endometrial lining found incidentally on imaging and tamoxifen use. She is also undergoing surgery today with Dr. Quiroga for a colon mass, therefore we paired cases to take opportunity of patient undergoing anesthesia once. Description of Procedure The patient was seen in the preoperative holding area, where risks benefits and alternatives to surgery reviewed. She elected to proceed with the case. Questions were answered. She had previously signed informed consent under no duress in the office. She was taken to the operating room, general anesthesia was administered. She was prepared and draped in the usual sterile fashion in the dorsolithotomy position with feet in yellowfin stirrups. Sims catheter was inserted. Timeout was confirmed. A weighted speculum placed in the vagina, the cervix was visualized, its anterior lip was grasped with single-tooth tenaculum. The cervix was gently dilated to admit the hysteroscope. The hysteroscope was inserted, the cavity was visualized. There was thickened endometrium, bilateral tubal ostia were seen. MyoSure device was used to obtain curettings from the entirety of the cavity. All instruments were then removed, excellent hemostasis was observed. The specimen was labeled endometrial curettings and sent to the pathology department. At the conclusion of the gynecologic portion of the case, the patient was repositioned and redraped. Please see Dr. Quiroga's notes for further details of the general surgical portion of the case. I attest to the content of the Intraoperative Record and any orders documented therein. Any exceptions are noted below.
[2020-08-26] MEDS ORDERED: KETAMINE 50 MG/5 ML SYRINGE ONE (08:09)
[2020-08-26] MEDS ORDERED: ePHEDrine sulfate 50 MG/ML SYR ONE (08:10)
[2020-08-26] MEDS ORDERED: ROCURONIUM BROMIDE 10 MG/ML 5 ML VIAL IV ONE (08:10)
[2020-08-26] MEDS ORDERED: LIDOCAINE HCL 2% 2 ML VIAL/AMP(20MG/ML) INFIL ONE (08:10)
[2020-08-26] MEDS ORDERED: PROPOFOL IV EMULSION 10 MG/ML 20 ML VIAL IV ONE (08:10)
[2020-08-26] MEDS ORDERED: ONDANSETRON INJ 2 MG/ML 2 ML VIAL ONE (08:10)
[2020-08-26] MEDS ORDERED: PHENYLEPHRINE HCL 10 MG/ML VIAL ONE (08:50)
[2020-08-26] MEDS ORDERED: SUGAMMADEX SODIUM 200 MG/2 ML VIAL IV ONE (09:49)
--- NOTE | 2020-08-26 10:23 | Operative Report ---
[facility] Post Operative Report Pre & Post Diagnosis Operation Date: 08/26/20 07:00 Pre-Op Diagnosis: Right Colon Mass, thickened endometrium Post-Op Diagnosis: Right Colon Mass, thickened endometrium I identified the patient and participated in the time-out.: Yes Procedure Operation Date: 08/26/20 07:00 Actual Procedures p Hysteroscopy with myosure(Not Applicable) - Cathy Calderon DO s Laparoscopic Extended Hemicolectomy, Extensive enterolysis(Not Applicable) - Sohail Quiroga DO Surgeon Sohail Quiroga, Online Marketing Analyst none Estimated Blood Loss 20 Findings Consistent with Post-Op Diagnosis Specimens terminal ileum, cecum, right colon, portion of transverse colon Anesthesia Type General Complications none Disposition Accompanied Patient To Recovery: No Description of Procedure This was a combined procedure with Dr. Sandoval. Please see her operative note for her portion. When she was finished they called me into the room. The patient was already intubated in a supine position with a Jacques catheter in place. We tucked the right arm. The abdomen was then sterilely prepped and draped in usual fashion. A supraumbilical incision was made with an 11 blade scalpel and carried down through the soft tissue using cautery. The anterior rectus fascia was opened using cautery and two #0 Vicryl stay sutures were placed. Peritoneum was entered using blunt finger penetration and a finger sweep performed. A 12 mm Brennan trocar was placed and the abdomen was insufflated to 20 mmHg. The laparoscope was inserted and the abdomen examined in 360 degrees. There were a lot of adhesions in the upper abdomen and right upper quadrant. I began by placing a lower midline 5 mm trocar a left lower quadrant 12 mm trocar and eventually a subxiphoid 5 mm trocar under direct vision. The patient was placed in a slightly left airplane to the left position. I used traction /countertraction and sharp scissor lysis as well as some harmonic scalpel to take down the adhesions in the upper abdomen and right side of the abdomen. Once this was done I examined the cecum and terminal ileum. The terminal ileum was somewhat contracted into the right lower quadrant. I was able to free this up using primarily blunt dissection and small amounts of harmonic scalpel. Several inches proximal to the ileocecal valve I used a WISAM brown cartridge 60 mm stapler to transect the terminal ileum. We then used the harmonic scalpel to take down the mesentery of the terminal ileum. Eventually I was able to free up the entire terminal ileum and cecum. We then began by rolling the cecum and right colon medially and freed up the white line of Toldt using blunt dissection and again some harmonic scalpel. We continued this up and around the hepatic flexure. Once hepatic flexure was freed up I then began taking down the mesentery of the cecum and right colon staying as low as safely possible. Next we found a spot on the transverse colon distal to the visible tattoo yesica placed by GI. We divided the omentum in this area and created a small window in the mesentery just proximal to the middle colic vessels. I then took down the mesentery of the proximal transverse colon over to the hepatic flexure using the harmonic scalpel. We also had to free up attachments to the liver itself. We were able to identify the duodenum to keep it out of harm's way. Eventually I had the entire right colon and cecum and proximal transverse colon freed up. We grasped the stapled portion of the terminal ileum and brought it up towards the upper midline 5 mm trocar. We removed the trocar and extended the incision both laterally and medially and opened up the fascia. We were able to fully deliver the terminal ileum cecum right colon and proximal transverse colon out through the fascial opening without any difficulty. A WISAM brown cartridge linear stapler was used to transect the transverse colon and the specimen was passed off. We then delivered the remaining stapled portion of small bowel out through the same incision. We used a WISAM brown cartridge linear 60 mm stapler to perform a [id number] small bowel to transverse colon anastomosis. The common enterotomy was closed using a TA 60 device. We oversewed the staple lines using 3-0 silk. We also placed a 3-0 silk crotch stitch. The anastomosis looked intact and viable and widely patent. At this point we changed our gloves. The anastomosis was returned to the abdominal cavity and the fascia closed using 0 PDS starting either pull running them and securing them in the midline. Next we reinsufflated the abdomen. We reperformed laparoscopy. The mesentery did not appear to be twisted. The anastomosis again looked good. There was adequate hemostasis. We irrigated the right abdomen and right upper quadrant thoroughly. A 10 flat Gal-Ivan drain was brought in through one of the trocar sites and placed in the right upper quadrant. It was secured to the skin using 2-0 silk. All the trochars were removed and the abdomen desufflated. The large upper abdominal incision was thoroughly irrigated and closed over top of Nidhi drain with 2-0 Vicryl for deep layers and skin pamela for the skin. The fascia the camera port was closed using 0 Vicryl in a [id number] fashion. The remaining incisions were closed using skin pamela. Silver dressing gauze and tape were used. The patient was awakened extubated and transferred to recovery in stable condition. My physician bankruptcy legal assistant was present through the entire case. He was instrumental in the entire case. He helped prep the patient. He helped run the camera as well as with exposure throughout my dissection. He assisted with the anastomosis wound closure and dressing placement. I attest to the content of the Intraoperative Record and any orders documented therein. Any exceptions are noted below.
[2020-08-26] MEDS: HYDROmorphone INJ 2 MG/ML SYR/VIAL IV PRN ×2 (10:26→10:35)
[2020-08-26] MEDS ORDERED: GLUCOSE 10 TABS/TUBE PO PRN (11:28)
[2020-08-26] MEDS ORDERED: DEXTROSE 50% 50 ML SYRINGE IV PRN (11:28)
[2020-08-26] MEDS ORDERED: CARBOHYDRATES FOR HYPOGLYCEMIA PO PRN (11:28)
[2020-08-26] MEDS ORDERED: GLUCAGON FOR INJ 1 MG VIAL SQ PRN (11:28)
[2020-08-26] MEDS ORDERED: ALBUTEROL HFA 8 GM INHALER INH PRN (11:28)
[2020-08-26] MEDS ORDERED: GLUCOSE 40% GEL 15 GM TUBE PO PRN (11:28)
--- NOTE | 2020-08-26 11:42 | Anesthesiology Progress Note ---
Date of Service August 26, 2020 Anesthesia Post Procedure Vital Signs Vital Signs: Temp Pulse Pulse Resp BP Pulse Ox 08/26/20 11:00 36.4 C L 68 17 113/50 L 99 08/26/20 10:50 71 18 115/44 L 98 08/26/20 10:40 69 12 112/42 L 99 08/26/20 10:30 72 14 118/43 L 100 08/26/20 10:20 81 16 137/58 L 100 08/26/20 10:10 36.6 C 76 17 148/87 H 100 08/26/20 06:16 36.5 C 77 20 213/79 H 96 Pain Intensity Abdomen: Pain Intensity: 3 Transfer of Care Handoff Completed per policy Notes Mental Status: alert / awake / arousable and participated in evaluation Patient Amnestic to Procedure: Yes Nausea / Vomiting: adequately controlled Pain: adequately controlled Airway Patency, RR, SpO2: stable & adequate BP & HR: stable & adequate Hydration State: stable & adequate Anesthetic Complications: no major complications apparent
[2020-08-26] MEDS: INSULIN ASPART 100 UNITS/ML 3 ML PEN SC SCH (12:52)
[2020-08-26] MEDS: ACETAMINOPHEN 1,000 MG/100 ML VIAL IV PRN (13:00)
[2020-08-26] MEDS ORDERED: FLUTICASONE PROPIONATE NA SPR 16 GM BTL NAE PRN (13:18)
--- NOTE | 2020-08-26 13:55 | Consultation ---
Date of Consultation August 26, 2020 Assessment & Plan (1) S/P right colectomy: Per Primary team, patient appears to be recovering well - Antibiotics per primary team - Chemical VTE per primary team - Drain per Primary team - Adequate tiered pain control - Bowel regimen - docusate/senna Qam (2) Status post hysteroscopy: As above -Sims per primary team - can likely remove tomorrow (3) CAD (coronary artery disease): As per HPI - Metoprolol continue 150mg PO BID - Continue Omega3 - Continue Atorvastatin 40 mg PO QHS - ASA can be restarted when hemostasis has been achieved and ensured - Continue Isosorbide 90 mg PO QAM - Continue Hydralazine 75mg PO TID Not on ARB secondary to CKD (4) Hyperlipidemia: As above (5) DVT (deep venous thrombosis): Patient is 6 months on therapy of Eliquis with evidence of clot remain in her femoral vein. - As above discussion with primary team in regards to hemostasis and when safe to resume with drain removal as well. - SCD's - DVT prophy on Lovenox 40mg Per primary team (6) Chronic kidney disease, stage III (moderate): As above with BP control - avoid nephrotoxic agents and if needed minimize exposure time (7) Type 2 DM with CKD stage 3 and hypertension: Goal 120-180 - HGB A1C has been well controlled recently - When tolerating regular diet and consistently can add back full Lantus and sliding scale - As patient is currently NPO placed patient on 1/2 her Lantus dose this evening - Postoperative BG 155 - AC/HS checks is Ok - Hypoglycemic protocol is ordered (8) Vitamin D deficiency: Continue to hold Vitamin D. Check calcium in the morning (9) Malignant neoplasm of upper-outer quadrant of right breast in female, estrogen receptor positive: Continue Tamoxifen - No acute needs (10) Osteoporosis: Weekly Fosamax last dose was last week. - no acute needs Supervising Physician Co-Signing Physician Notes I supervised MATT Mendoza on this consult. I interviewed and examined the patient independently of him. The plan is as written in his note except for any following changes/exceptions: None Patient doing well after surgery. Not having any major discomfort. Medical issues largely stable. As in MATT's note, can discuss when to restart anticoa gulation, but can defer a few days given she has been treated for ~6 months. Cardiac issues all stable with no present chest pain. History of Present Illness Requesting Physician: Dr. Quiroga Reason for Consultation: Medical Managment post operatively Attending Physician: Sohail Quiroga, DO History of Present Illness 79 YOF with past medical history of CABG 2006 3v (L COURTNEY-LAD, SVG to left CX, and LAD diag, CAD, HTN, HLD, CKD III, Renal Cysts, Osteoarthritis, Lumbar Stenosis, Left Knee replacment, DM II on insulin, Breast Cancer 2018 (Radiation) on Tamoxifen, DVT Mar 2020 RLE on Eliquis. She is POD #0 from hysteroscopy for thickened endometrium, and right laparoscopic extended hemicolectomy for right colonic mass at the ileocecal valve that was found on colonoscopy during her workup of anemia. Hospitalist team was consulted for medical management. She is awake postoperatively in her room, pain is controlled, she is on 2LNC with appropriate SPO2, hemodynamically stable, sims catheter draining yajaira urine and a LÁZARO drain with serous sang drainage. She remains NPO for today. With her 3V CABG in 2006 she has not experienced any dyspnea or chest pain since this time, she has completed a Dobutamine Stress echo on 08/04/20 where she reached 84% of her maximal heart rate. She had no EKG changes and normal EF 6065% with her normal LVH. She is also noted to have CKD III with known right renal cysts; her hypertension is controlled but with her CKD and disease and tolerance, she is not on an JESSICA/ARB and should be avoided per Dr. Ramirez's review. She was intolerant to amlodipine. Her regime of IMDUR, Bumex, Hydralazine, and Metoprolol seems to do well. Her Metoprolol dose was recently increased to 150 mg BID. Her vitamin D has been on hold for mild hypercalcemia. Her breast cancer as above was treated with lumpectomy and one sentinel node [id number] ER/PA (+) HER (-) and is on Tamoxifen secondary with routine following of her DEXA scan she was also noted to have osteopetrosis. So she remains on Fosamax and Tamoxifen. In March she was having some right lower extremity pain and increase in swelling, so she had a duplex performed that showed a right common femoral vein thrombus extending to the popliteal vein she was placed on Eliquis. She had a repeat of her right lower extremity done on 07/07/20 that continued to show a nonocclusive thrombus within her femoral vein and no definite popliteal thrombus was visualized. She has been off her ASA and Eliquis since last week. Her HGB A1c in April was 5.7 and previously was 6.6-6.5 range, she is on Lantus 60 units at bedtime and NovoLog sliding scale TID. Allergies Allergy/AdvReac Type Severity Reaction Status Date / Time diclofenac Allergy Unknown ankle Verified 08/26/20 06:01 swelling JESSICA Inhibitors AdvReac Intermediate ARF Verified 08/26/20 06:01 iron AdvReac Mild nausea/ Verified 08/26/20 06:01 VOMITING Home Medications Medication Instructions Recorded Confirmed Type cyanocobalamin (vitamin B-12) 1,000 mcg PO QAM 12/28/17 08/12/20 History fluticasone propionate [Flonase 2 spray INTRANASAL DAILY PRN 12/28/17 08/26/20 History Allergy Relief] magnesium oxide 400 mg PO BID 12/28/17 08/26/20 History omega 8-fer-giw-fish oil [Fish Oil] 1 cap PO QPM 12/28/17 08/26/20 History albuterol sulfate 90 mcg/actuation 2 puff INHALATION Q6H PRN 10/02/18 08/26/20 History aerosol inhaler fexofenadine 60 mg tablet 60 mg PO DAILY PRN 10/02/18 08/26/20 History pen needle, diabetic 31 gauge x #30 ea 11/22/18 08/06/20 History 5/16" tamoxifen 20 mg tablet 20 mg PO HS 04/25/19 08/26/20 History potassium chloride 20 mEq 20 meq PO QAM #90 tab 10/23/19 08/26/20 Rx tablet,extended release(part/cryst) insulin glargine 100 unit/mL 60 unit SUBCUT HS 90 Days #54 ml 11/26/19 08/26/20 Rx subcutaneous solution alendronate 70 mg tablet 70 mg PO WEEKLY #12 tab 05/10/20 08/26/20 Rx bumetanide 0.5 mg PO QDL 06/21/20 08/26/20 History bumetanide 1 mg PO QAM 06/21/20 08/26/20 History cilostazol 100 mg PO BID 06/21/20 08/26/20 History hydralazine 25 mg PO TID 06/21/20 08/26/20 History hydralazine 50 mg PO TID 06/21/20 08/26/20 History insulin aspart U-100 [Novolog 0 unit SQ TID 06/21/20 08/26/20 History Flexpen U-100 Insulin] isosorbide mononitrate 30 mg PO QAM 06/21/20 08/26/20 History isosorbide mononitrate 60 mg PO QAM 06/21/20 08/26/20 History apixaban 5 mg tablet 5 mg PO BID #60 tab 07/11/20 08/26/20 Rx aspirin 81 mg tablet,delayed 81 mg PO QPM 07/15/20 08/26/20 History release metoprolol succinate 100 mg 150 mg PO BID #270 tab 07/15/20 08/26/20 Rx tablet,extended release 24 hr bumetanide 0.5 mg tablet 0.5 mg PO QPM #90 tab 07/27/20 08/26/20 Rx nystatin 100,000 unit/gram topical 1 applic TOPICAL BID #30 g 08/06/20 08/26/20 Rx powder atorvastatin 40 mg PO HS 08/12/20 08/26/20 History diclofenac sodium [Voltaren] 2 g TOPICAL BID PRN 08/12/20 08/26/20 History Patient History Medical History Anemia Mild- has been evaluated by heme/onc for recent dx colon cancer CAD (coronary artery disease) s/p 3 vessel CABG 2006 Chronic kidney disease STAGE 3-F/U DR LIND Last seen by nephro 07/20/20- kidney function stable at that time DVT (deep venous thrombosis) Right upper leg DVT -- March 2020 -- placed on eliquis.-NO ISSUES SINCE Recent u/s from 07/07/20= shows continued evidence of right common femoral DVT. Hx of acute respiratory failure WITH GB SURG 04/21/09 [facility] POST OP RESPIRATORY FAILURE-HAD TO BE VENTILATED,EXTUBATED NEXT DAY-PER PT SLOW TO WAKE UP IN GENERAL Right breast partial mastectomy 08/29/18 under [place] with LMA #4 x 3 attempts- atraumatic with good seal- no other issues noted Hx of breast cancer right breast (Jun 2018). surgical intervention + radiation therapy Hyperlipidemia Hypertension Lumbar spinal stenosis Osteoarthritis Peripheral vascular disease On Pletal Type 2 diabetes, controlled, with renal manifestation Venous stasis dermatitis LLE Surgical History History of adverse response to anesthesia SLOW TO WAKE. PT HAD RESP FAILURE S/P KYLAH IN 2008 History of bilateral tubal ligation History of cardiac cath 2006 NO STENTS-[facility] History of cataract surgery BL History of cholecystectomy History of coronary artery bypass graft 3 [place] 2006[place] [place] History of dilatation and curettage History of esophagogastroduodenoscopy (EGD) History of Moh's micrographic surgery for skin cancer History of partial mastectomy of right breast History of total knee replacement LEFT 2017. S/P epidural steroid injection S/P tendon repair R ARM Status post trigger finger release X2 Family History Mother , age 38 heart disease due to rheumatic fever No problems noted. Father , age 73 heart disease No problems noted. Sister No problems noted. Sister No problems noted. Sister No problems noted. Sister No problems noted. Sister No problems noted. Daughter Myocardial infarction Breast cancer Family history of reaction to anesthesia SLOW TO WAKE UP/PONV Daughter Heart disease Other No family history of adverse response to anesthesia Denies family history of Ovarian cancer Prostate cancer Colorectal cancer Social History Smoking Status: Never smoker Second Hand Exposure: Yes (SPOUSE SMOKED); Do You Dip or Chew Tobacco: No; Hx Alcohol Use: Yes Alcohol type: hard liquor Hx Substance Use: No Preferred Language: Tajik Communication Ability: Effective Visual Impairment: No Limitations Grill Cook Required: No Beliefs That Will Affect Care: None marital status: / Current Living Situation: Alone Other Information That Helps Us Care for You: No Feels Safe at Home: Yes Safety Concerns: Feels Safe At This Time Dental Care, Regularly: No Seatbelt Use: always Assistive Devices: Denture - Upper, Denture - Lower and Glasses Review of Systems Review of Systems: REVIEW OF SYSTEMS: Constitutional: No fever, sweats or chills Eyes: No diplopia, no worsening or blurred vision ENT: normal hearing, no trouble swallowing Respiratory: (+) seasonal bronchitis, No cough, sputum, dyspnea at rest or on exertion Cardiovascular: No chest pain, tightness or palpitations Abdomen: No pain, nausea, vomiting, diarrhea or constipation Musculoskeletal: (+) back pain, (-) calf pain, swelling Neurologic: No weakness, numbness/tingling, or balance problems Psychiatric: No anxiety or depression Skin: No rash or itch Physical Exam Physical Exam: PHYSICAL EXAM: General: widely awake, alert, pain "tolerable" no apparent distress Head: Normocephalic, atraumatic ENT: PERRL, EOMI, no pharyngeal exudate, mucous membranes moist Neuro: AAO x 3, speech clear and appropriate, strength intact bilaterally 5/5, sensation intact and equal all extremities and dermatomes, no pronator drift Chest: equal rise and fall of the chest, no accessory muscle use, no heaves or thrills, Clear to auscultation, on 2LNC postoperative, Cardiac: Regular rate and rhythm, preop ECG reviewed, NSR with Left axis deviation, S1S2, skin warm dry, cap refill <3 seconds, peripheral pulses +2 no JVD, no murmur, 2+ edema to feet, ankles and calf trace edema. GI: midline gauze with small amount of strikethrough noted in RUQ, nontender to light palpation, Sudhakar drain in place with serous sang drainage, no guarding or tenderness, pain with movment and cough. : Sims catheter draining light yajaira colored urine, no pain, no CVA tenderness Extremities: Normal inspection, no peripheral edema or erythema, calfs nontender to palpation Psych: Normal mood and affect Skin: no rash or erythema Results & Data ([facility]) Vital Signs (Past 12 Hours) Vital Signs Temp Pulse Pulse Resp BP Pulse Ox 08/26/20 13:15 36.4 C L 76 16 171/66 H 98 08/26/20 12:08 36.4 C L 77 17 126/57 L 96 08/26/20 11:42 36.5 C 71 18 131/59 L 98 08/26/20 11:00 36.4 C L 68 17 113/50 L 99 08/26/20 10:50 71 18 115/44 L 98 08/26/20 10:40 69 12 112/42 L 99 08/26/20 10:30 72 14 118/43 L 100 08/26/20 10:20 81 16 137/58 L 100 08/26/20 10:10 36.6 C 76 17 148/87 H 100 08/26/20 06:16 36.5 C 77 20 213/79 H 96 Laboratory Results Abnormal lab results 08/26/20 08/26/20 08/26/20 Range/Units 06:00 10:12 12:07 POC Glucose 103 H 151 H 155 H (70-99) mg/dl Diagnostic Findings No acute imaging needs- none performed Medications Administered Home Medications cyanocobalamin (vitamin B-12) 1,000 mcg PO QAM 12/28/17 [History Confirmed 08/12/20] fluticasone propionate [Flonase Allergy Relief] 2 spray INTRANASAL DAILY PRN 12/28/17 [History Confirmed 08/26/20] magnesium oxide 400 mg PO BID 12/28/17 [History Confirmed 08/26/20] omega 7-ugt-lrt-fish oil [Fish Oil] 1 cap PO QPM 12/28/17 [History Confirmed 08/26/20] albuterol sulfate 90 mcg/actuation aerosol inhaler 2 puff INHALATION Q6H PRN 10/02/18 [History Confirmed 08/26/20] fexofenadine 60 mg tablet 60 mg PO DAILY PRN 10/02/18 [History Confirmed 08/26/20] pen needle, diabetic 31 gauge x 5/16" #30 ea 11/22/18 [History Confirmed 08/06/20] tamoxifen 20 mg tablet 20 mg PO HS 04/25/19 [History Confirmed 08/26/20] potassium chloride 20 mEq tablet,extended release(part/cryst) 20 meq PO QAM #90 tab 10/23/19 [Rx Confirmed 08/26/20] insulin glargine 100 unit/mL subcutaneous solution 60 unit SUBCUT HS 90 Days #54 ml 11/26/19 [Rx Confirmed 08/26/20] alendronate 70 mg tablet 70 mg PO WEEKLY #12 tab 05/10/20 [Rx Confirmed 08/26/20] bumetanide 0.5 mg PO QDL 06/21/20 [History Confirmed 08/26/20] bumetanide 1 mg PO QAM 06/21/20 [History Confirmed 08/26/20] cilostazol 100 mg PO BID 06/21/20 [History Confirmed 08/26/20] hydralazine 25 mg PO TID 06/21/20 [History Confirmed 08/26/20] hydralazine 50 mg PO TID 06/21/20 [History Confirmed 08/26/20] insulin aspart U-100 [Novolog Flexpen U-100 Insulin] 0 unit SQ TID 06/21/20 [History Confirmed 08/26/20] isosorbide mononitrate 30 mg PO QAM 06/21/20 [History Confirmed 08/26/20] isosorbide mononitrate 60 mg PO QAM 06/21/20 [History Confirmed 08/26/20] apixaban 5 mg tablet 5 mg PO BID #60 tab 07/11/20 [Rx Confirmed 08/26/20] aspirin 81 mg tablet,delayed release 81 mg PO QPM 07/15/20 [History Confirmed 08/26/20] metoprolol succinate 100 mg tablet,extended release 24 hr 150 mg PO BID #270 tab 07/15/20 [Rx Confirmed 08/26/20] bumetanide 0.5 mg tablet 0.5 mg PO QPM #90 tab 07/27/20 [Rx Confirmed 08/26/20] nystatin 100,000 unit/gram topical powder 1 applic TOPICAL BID #30 g 08/06/20 [Rx Confirmed 08/26/20] atorvastatin 40 mg PO HS 08/12/20 [History Confirmed 08/26/20] diclofenac sodium [Voltaren] 2 g TOPICAL BID PRN 08/12/20 [History Confirmed 08/26/20] Active Medications Albuterol (Albuterol Hfa 8 Gm Inhaler) 2 puffs INH Q6H PRN PRN Reason: Wheezing Stop: 09/25/20 11:27 Atorvastatin Calcium (Atorvastatin 40 Mg Tab) 40 mg PO HS TRISH Stop: 09/25/20 20:59 Bumetanide (Bumetanide 1 Mg Tab) 1 mg PO QAM TRISH Stop: 09/26/20 08:59 Dextrose (Dextrose 50% 50 Ml Syringe) 25 - 50 ml IV UD PRN; Protocol PRN Reason: Hypoglycemia Protocol Stop: 09/25/20 11:27 Enoxaparin Sodium (Enoxaparin Inj 40 Mg/0.4 Ml Syr) 40 mg SQ QAM [facility] Stop: 09/26/20 08:59 Fish Oil ([place]-3 (Purified Fish Oil) 1 Gm Cap) 1 gm PO QPM [facility] Stop: 09/25/20 20:59 Fluticasone Propionate (Fluticasone Propionate Na Spr 16 Gm Btl) 2 sprays MARLON DAILY PRN PRN Reason: Congestion Stop: 09/25/20 13:17 Glucagon (Glucagon For Inj 1 Mg Vial) 1 mg SQ UD PRN; Protocol PRN Reason: Hypoglycemia Protocol Stop: 09/25/20 11:27 Glucose (Glucose 10 Tabs/Tube) 4 - 8 tabs PO UD PRN; Protocol PRN Reason: Hypoglycemia Protocol Stop: 09/25/20 11:27 Glucose (Glucose 40% Gel 15 Gm Tube) 15 - 30 gm PO UD PRN; Protocol PRN Reason: Hypoglycemia Protocol Stop: 09/25/20 11:27 Hydralazine HCl (Hydralazine Hcl 25 Mg Tab) 25 mg PO TID [facility] Stop: 09/25/20 13:59 Hydralazine HCl (Hydralazine Tab 50 Mg Tab) 50 mg PO TID [facility] Stop: 09/25/20 13:59 Hydromorphone HCl (Hydromorphone Inj 0.5 Mg/0.5 Ml Syr) 0.5 mg IV Q2H PRN PRN Reason: Pain (1,2,3,4,5) & Pre PT Stop: 09/09/20 11:27 Hydromorphone HCl (Hydromorphone Inj 1 Mg/Ml Syringe) 1 mg IV Q2H PRN PRN Reason: Pain (6,7,8,9,10) Stop: 09/09/20 11:27 Acetaminophen (Ofirmev) 1,000 mg in 100 mls @ 400 mls/hr IV Q8H PRN PRN Reason: Pain Stop: 08/29/20 11:27 Last Infusion: 08/26/20 13:17 Dose: Infused Documented by: Insulin Aspart (Insulin Aspart 100 Units/Ml 3 Ml Pen) 0 units SC ACHS [facility] Stop: 09/25/20 11:29 Last Admin: 08/26/20 12:52 Dose: 1 units Documented by: Insulin Glargine (Insulin Glargine Solostar 100 Units/Ml 3 Ml Pen) 30 units SC QPM [facility] Stop: 09/25/20 20:59 Isosorbide Mononitrate (Isosorbide [place] Extended Rel 30 Mg Tabcr) 30 mg PO QAM [facility] Stop: 09/26/20 08:59 Isosorbide Mononitrate (Isosorbide [place] Extended Rel 60 Mg Tabcr) 60 mg PO QAM [facility] Stop: 09/26/20 08:59 Magnesium Oxide (Magnesium Oxide 400 Mg Tab) 400 mg PO BID [facility] Stop: 09/25/20 20:59 Metoprolol Succinate (Metoprolol Succ 50mg Ext Rel Tab) 150 mg PO BID [facility] Stop: 09/25/20 20:59 Miscellaneous (Carbohydrates For Hypoglycemia ) 15 - 30 gm PO UD PRN PRN Reason: Hypoglycemia Protocol Stop: 09/25/20 11:27 Ondansetron HCl (Ondansetron Inj 2 Mg/Ml 2 Ml Vial) 4 mg IV Q4H PRN PRN Reason: Nausea And Vomiting Stop: 09/25/20 11:27 Tamoxifen Citrate (Tamoxifen Citrate 10 Mg Tablet) 20 mg PO HS [facility] Stop: 09/25/20 20:59 ECG Additional Comments: Normal sinus rhythm Left axis deviation Incomplete left bundle block Abnormal ECG When compared with ECG of 01-AUG-2018 No significant change was found PG Care Time/CCT Total # of Minutes Spent Total Time Spent with Patient: Total time spent is greater than 50% in coordination of care (as documented) at patient's floor/unit and/or counseling patient: Coding Level of Care Code 42653 Inpt Consult Level 4 Diagnoses S/P right colectomy Z90.49 Status post hysteroscopy Z98.890 CAD (coronary artery disease) I25.10 Associated angina: without angina Coronary Disease-Associated Artery/Lesion type: [place] artery [place] vs. transplanted heart: [place] heart Hyperlipidemia E78.5 Hyperlipidemia type: unspecified DVT (deep venous thrombosis) I82.511 Affected thrombotic vein of extremity: femoral Chronicity: chronic DVT location: lower extremity Laterality: right Chronic kidney disease, stage III (moderate) N18.31 Chronic kidney disease stage 3 subtype: stage 3a (GFR 45-59) Type 2 DM with CKD stage 3 and hypertension E11.22; I12.9; N18.3 Vitamin D deficiency E55.9 Malignant neoplasm of upper-outer quadrant of right breast in female, estrogen receptor positive C50.411; Z17.0 Osteoporosis M81.0 Osteoporosis type: unspecified Presence of current pathological fracture: unspecified (1) DVT (deep venous thrombosis) Affected thrombotic vein of extremity: femoral Chronicity: chronic DVT location: lower extremity Laterality: right Qualified Code(s): I82.511 - Chronic embolism and thrombosis of right femoral vein (2) Osteoporosis Osteoporosis type: unspecified Presence of current pathological fracture: unspecified Qualified Code(s): M81.0 - Age-related osteoporosis without current pathological fracture (3) Chronic kidney disease, stage III (moderate) Chronic kidney disease stage 3 subtype: stage 3a (GFR 45-59) Qualified Code(s): N18.31 - Chronic kidney disease, stage 3a (4) CAD (coronary artery disease) Associated angina: without angina Coronary Disease-Associated Artery/Lesion type: [place] artery [place] vs. transplanted heart: [place] heart Qualified Code(s): I25.10 - Atherosclerotic heart disease of [place] coronary artery without angina pectoris (5) Hyperlipidemia Hyperlipidemia type: unspecified Qualified Code(s): E78.5 - Hyperlipidemia, unspecified
[2020-08-26] MEDS: hydrALAZINE HCL 25 MG TAB PO SCH ×2 (14:31→21:52)
[2020-08-26] MEDS: hydrALAZINE TAB 50 MG TAB PO SCH ×2 (14:31→21:51)
[2020-08-26] MEDS: HYDROmorphone INJ 0.5 MG/0.5 ML SYR IV PRN ×2 (16:27→19:34)
[2020-08-26] MEDS: NSS + 20MEQ KCL 20 MEQ/1,000 ML BAG IV SCH (16:59)
[2020-08-26] MEDS ORDERED: INSULIN GLARGINE SOLOSTAR 100 UNITS/ML 3 ML PEN SC SCH (21:00)
[2020-08-26] MEDS: TAMOXIFEN CITRATE 10 MG TABLET PO SCH (21:49)
[2020-08-26] MEDS: ATORVASTATIN 40 MG TAB PO SCH (21:49)
[2020-08-26] MEDS: MAGNESIUM OXIDE 400 MG TAB PO SCH (21:52)
[2020-08-26] MEDS: METOPROLOL SUCC 50MG EXT REL TAB PO SCH (21:54)
[2020-08-26] MEDS: OMEGA-3 (PURIFIED FISH OIL) 1 GM CAP PO SCH (22:01)
[2020-08-27] MEDS: NSS + 20MEQ KCL 20 MEQ/1,000 ML BAG IV SCH ×2 (00:26→09:48)
[2020-08-27] MEDS: ACETAMINOPHEN 1,000 MG/100 ML VIAL IV PRN (00:36)
[2020-08-27] MEDS: HYDROmorphone INJ 0.5 MG/0.5 ML SYR IV PRN ×6 (03:37→22:35)
[2020-08-27 05:27] LABS: Basophils # (auto) 0.01 K/uL (0-0.2); Basophils % (auto) 0.2 %; Eosinophils # (auto) 0.02 K/uL (0-0.5); Eosinophils % (auto) 0.4 %; Hematocrit (blood only) 23.8 % (37-47); Hemoglobin 7.8 g/dL (12.0-16.0); Immature Granulocytes # (auto) 0.01 K/uL (0.00-0.02); Immature Granulocytes % (auto) 0.2 %; Lymphocytes # (auto) 0.52 K/uL (1.2-3.4); Lymphocytes % (auto) 11.5 %; Mean Corpuscular Hemoglobin 33.6 pg (25-34); Mean Corpuscular Hgb Conc 32.8 g/dL (32-36); Mean Corpuscular Volume 102.6 fL (80-100); Mean Platelet Volume 8.5 fL (7.4-10.4); Monocytes # (auto) 0.47 K/uL (0.11-0.59); Monocytes % (auto) 10.4 %; Neutrophils # (auto) 3.51 K/uL (1.4-6.5); Neutrophils % (auto) 77.3 %; Platelet Count 153 K/uL (130-400); RDW Coefficient of Variation 14.1 % (11.5-14.5); RDW Standard Deviation 52.5 fL (36.4-46.3); Red Blood Count 2.32 M/uL (4.2-5.4); White Blood Count 4.54 K/uL (4.8-10.8)
[2020-08-27 05:49] LABS: RBC Morphology Unremarkable
[2020-08-27 05:51] LABS: Calcium 6.9 mg/dl (8.5-10.1); Creatinine Clr Calc Pharmacy 29.4 ml/min; Est GFR (African American) 30.3; Est GFR (Non-African American) 26.1; Potassium 4.6 mmol/L (3.5-5.1)
[2020-08-27] MEDS ORDERED: SODIUM CHLORIDE 0.9% 250 ML IV PRN (07:59)
--- NOTE | 2020-08-27 08:36 | Hospitalist Progress Note ---
Date of Service August 27, 2020 Assessment & Plan (1) S/P right colectomy: * POD#1 s/p * Hysteroscopy First Procedure(Not Applicable) - Cathy Calderon, DO * Dilation and Curettage, Possible Polypectomy(Not Applicable) - Cathy Calderon, DO * Laparoscopic Extended Hemicolectomy, Extensive enterolysis with Dr. Quiroga * EBL 5cc+ 20cc.. LÁZARO output 370cc * She did have a history of open catrachita and had extensive adhesions per operative report. Pathology pending from both * Pre-op h/h 10.1/30.5. However, this lab value was also drawn July 15, 2020 inpatient with colon mass which was likely causing her anemia and was found on work-up for such * --She follows locally with Dr. Hernandez and states that she was found to be iron deficient and there were talks of giving her IV iron transfusions as she is unable to tolerate p.o. but that she was never set up for transfusions at that time * H&H dropped to 7.8/23.8 this morning--acute blood loss from surgery as well as dilution from IV fluids in combination with mass as mentioned above and concomitant hysterectomy for thickened endometrium by Dr. Calderon * Repeat H&H this afternoon while on IV fluids at 125 cc/h is 7.6/23.3 * Patient does endorse shortness of breath with ambulation however she endorsed this prior to admission and states that she does not believe it is worse however she has not been up and walking much * We will hold off on giving blood products at this time and add iron studies to a.m. labs and administer IV Venofer as needed or blood products if they are warranted/if patient endorses chest pain or worsening shortness of breath. * SpO2 95% on room air * Patient was trialed on a clear liquid diet by surgery this morning and has had multiple liquid bowel movements without evidence of blood noted, Will continue on this per surgery for now * Kidney function has improved from preop labs from 1.9->1.82 and we will continue to monitor * Pain control per primary service * Continued bowel regimen * Lovenox 40 mg subcu daily for DVT prophylaxis * Monitor daily labs and replace electrolytes, blood products/iron as needed (2) Status post hysteroscopy: * As above by Yumiko Coley per primary team -- remained this morning but likely to be removed today vs tomorrow (3) CAD (coronary artery disease): * Worked up for cataract surgery and had an abnormal stress test in the past which prompted CABG x3v (VALERIO-LAD, SVG to left CX, and LAD diagonal). * She does follow with Dr. Betancourt pending consult [facility] cardiology if needed during this stay * --Recent dobutamine stress echocardiogram on 08/03/2020 negative for myocardial ischemia at 84% of the maximum predicted heart rate. No dobutamine induced chest pain, EKG changes. Baseline echocardiogram notes normal LV systolic function and mild LVH * She is not on JESSICA/ARB therapy at this time secondary to her chronic kidney disease * She denies any chest pain and EKGs are similar to previous * Regular rate and rhythm on examination however a murmur was heard as document ed in the physical examination which is likely due to her anemia and will continue to monitor. * Continue recently increased metoprolol succinate 150 mg by mouth twice daily * Continue usual isosorbide 90 mg daily, hydralazine 75 mg three times daily, atorvastatin 40 mg at bedtime and omega-3 however Bumex was held this morning for low blood pressure and volume loss from surgery but will likely resume in a.m. * Aspirin to be resumed by primary service when stable * EKG with chest pain * Continue to monitor (4) Hyperlipidemia: * Continue atorvastatin 40 mg as above (5) DVT (deep venous thrombosis): * Diagnosed with a right lower extremity DVT in March 2020 and was placed on Eliquis at that time * She has had her Eliquis held for the past 5 days along with her aspirin 81 mg --she has been on this for approximately 6 months * Repeat ultrasound prior to surgery indicated a nonocclusive thrombus within her right femoral vein and no definitive popliteal thrombus visualized * SCDs, Lovenox 40 mg for DVT prophylaxis from surgery * Would recommend resuming therapy when felt safe to do so by general surgery a nd hemostasis/drain removed as well (6) Type 2 DM with CKD stage 3 and hypertension: * Actually with stage IV CKD, diabetes and hypertension * Last A1c well controlled at 5.7 in April 2020 and will repeat with a.m. labs * She is maintained on insulin glargine 60 units at bedtime with sliding scale coverage at baseline * Patient got half of her usual Lantus last evening however for some reason this was held for parameters/protocol and insulin SSI was also placed on hold * Blood sugars acceptable this morning but up to 222 for lunch and given 10u glargine and will give 45 units glargine for tonight given 10 units ordered this afternoon - likely will resume her usual dose tomorrow if continues to tolerate diet * Continue to monitor (7) CKD (chronic kidney disease), stage IV: * Actually CKD stage IV as above. Follows locally with Dr. Butler. * GFR 26.1, better than pre-op * Suspect some of his worsening of her kidney disease related to ongoing anemia which could possibly improve with treatment * BMP is stable at 1.82 however patient was slightly hypotensive this morning and her Bumex was held but will resume for a.m. * Avoid nephrotoxic agents and if needed minimize exposure time * Continue to monitor BMP (8) Malignant neoplasm of upper-outer quadrant of right breast in female, estrogen receptor positive: * She was diagnosed with breast cancer in 2019, status post lumpectomy and radiation. Follows locally with Dr. Hernandez and is maintained on tamoxifen which has been continued * She states repeat mammograms have indicated no further recurrence or other suspicious areas * No acute needs (9) Osteoporosis: * Weekly Fosamax last dose was last week. * no acute needs (10) Vitamin D deficiency: * Initially reports in Dr. Butler's note from outpatient noting patient was to hold her vitamin D for hypercalcemia, likely secondary to cancer as above . PTH greater than 200 * Her calcium on a.m. labs was 6.9 with an albumin of 2.5 and patient was given 1 g of IV calcium. Her vitamin D level in the past also continue to be low. * Resume oral vitamin D supplementation to help this * Continue to monitor on a.m. labs and will recommend following up with Dr. Mendieta at discharge to further address this (11) Hypocalcemia: * Calcium 6.9 as above and given 1 g IV calcium gluconate now continue to monitor on a.m. labs (12) Hyperparathyroidism: * Last PTH greater than 200 as above. History of vitamin deficiency however her oral supplementation was stopped per nephrology's outpatient notes due to history of hypercalcemia however review does indicate that she is still low vitamin D and now with hypocalcemia and will resume vitamin D supplementation at this time * Continue to monitor a.m. labs and would recommend she follow-up with nephrology on discharge (13) DVT prophylaxis: * Eliquis held preoperatively for 5 days and continues to be held postoperatively as above for history of fairly recent DVT in March 2020 * Continues with SCDs, Lovenox SQ as above Dispo: Continued inpatient stay Thank you for allowing the hospitalist group to participate in the care of Ms. Unger. Hospitalist group will follow. Admission and Anticipated Discharge Date Admission Date: August 26, 2020 Supervising Physician Co-Signing Physician Notes PA Supervision Note: I did not personally see or examine the patient today, but I verified all anthony points of RICA Reyes's assessment and plan with the following exceptions/additions: None Subjective Patient evaluated this afternoon. Doing well. Clear liquid diet this am. Had multiple loose BMs, got softener this morning. Anticipate liquid stool for now but should slow with time. No blood in stool noted. Pain controlled with ordered medications, primarily located to her right side. Baseline shortness of breath and states she would get winding walking down the [place]gu[place] prior to surgery. Discussed with general surgery and patient and plans for holding off on blood transufsion at the moment but to alert RN if shortness of breath worsens or if she has chest pain and would have low threshold. Possible to give IV venofer while in hospital as intolerant to oral iron. Had iron studies with Dr. Hernandez and was told low but she was going to get IV iron but that was never set up. She proceeded with work up for anemia and found to have colon mass and is reason for current surgery. Hx breast ca 2019 s/p lumpectomy and XRT and maintained on tamoxifen. Was going to be worked up for spinal stenosis and saw Mario in the past and then referred to pain management for injections but she states these raised her sugars and will be planning on following up with new ortho as Dr. Martin left the area. Hx worked up for cataracts with abn stress test and then required CABGx3. Never had hx DE or CVA. Would like to try voltaren topical to her right buttocks given spinal stenosis/possible sciatica type pain as this has been effective for her in the past with use. Hx DVT last fall and repeat US with non-occlusive thrombus. Legs non-tender, non-erythematous. No fever, chills, chest pain, shortness of breath, dysuria at this time. Review of Systems Review of Systems: All systems reviewed & are unremarkable except as noted in HPI & below Physical Exam Physical Exam: Patient is well developed, well noursished, laying in bed on her left side, no acute distress. General pallor noted HEENT: head atraumatic, normocephalic, trachea midline without deviation, mmm Resp: CTAB, no w/c/r. diminished breath sounds in the bases Cardiac: RRR, faint systolic murmur appreicated, no m/r/g Abd: +BS, soft, tender to palpation around incisions, minimal distension. surgical incision c/d/i with minimal shadowing. LÁZARO drain with scant bloody drainage MSK: moves all extremities, strength 5/5 throughout Skin: warm , moist Psych: AOx3 Neuro: no focal deficits Results & Data Results & Data ([facility]) Vital Signs (Past 12 Hours) Vital Signs Temp Pulse Resp BP Pulse Ox 08/27/20 07:40 37.1 C 81 16 129/62 94 08/27/20 06:14 86 134/67 08/27/20 03:30 37.3 C 82 18 113/56 L 97 08/26/20 22:41 37.3 C 83 16 119/58 L 97 08/26/20 21:45 86 127/63 Laboratory Results 08/27/20 08/27/20 08/27/20 Range/Units 06:14 05:07 05:07 WBC 4.54 L (4.8-10.8) K/uL RBC 2.32 L (4.2-5.4) M/uL Hgb 7.8 L (12.0-16.0) g/dL Hct 23.8 L (37-47) % MCV 102.6 H (80-100) fL MCH 33.6 (25-34) pg MCHC 32.8 (32-36) g/dL RDW Std Deviation 52.5 H (36.4-46.3) fL RDW Coeff of Kirsty 14.1 (11.5-14.5) % Plt Count 153 (130-400) K/uL MPV 8.5 (7.4-10.4) fL Immature Gran % (Auto) 0.2 % Neut % (Auto) 77.3 % Lymph % (Auto) 11.5 % [place] % (Auto) 10.4 % Eos % (Auto) 0.4 % Baso % (Auto) 0.2 % Neut # (Auto) 3.51 (1.4-6.5) K/uL Lymph # (Auto) 0.52 L (1.2-3.4) K/uL [place] # (Auto) 0.47 (0.11-0.59) K/uL Eos # (Auto) 0.02 (0-0.5) K/uL Baso # (Auto) 0.01 (0-0.2) K/uL Immature Gran # (Auto) 0.01 (0.00-0.02) K/uL RBC Morphology Unremarkable Sodium 142 (136-145) mmol/L Potassium 4.6 (3.5-5.1) mmol/L Chloride 117 H (98-107) mmol/L Carbon Dioxide 22 (21-32) mmol/L Anion Gap 3.0 (3-11) BUN 29 H (7-18) mg/dl Creatinine 1.82 H (0.6-1.2) mg/dl Est Cr Clr Drug Dosing 29.4 ml/min Est GFR ( Amer) 30.3 Est GFR (Non-Af Amer) 26.1 BUN/Creatinine Ratio 16.0 (10-20) Glucose 119 H (70-99) mg/dl POC Glucose 122 H (70-99) mg/dl Calcium 6.9 L (8.5-10.1) mg/dl 08/27/20 08/26/20 08/26/20 Range/Units 00:23 21:19 18:18 WBC (4.8-10.8) K/uL RBC (4.2-5.4) M/uL Hgb (12.0-16.0) g/dL Hct (37-47) % MCV (80-100) fL MCH (25-34) pg MCHC (32-36) g/dL RDW Std Deviation (36.4-46.3) fL RDW Coeff of Kirsty (11.5-14.5) % Plt Count (130-400) K/uL MPV (7.4-10.4) fL Immature Gran % (Auto) % Neut % (Auto) % Lymph % (Auto) % [place] % (Auto) % Eos % (Auto) % Baso % (Auto) % Neut # (Auto) (1.4-6.5) K/uL Lymph # (Auto) (1.2-3.4) K/uL [place] # (Auto) (0.11-0.59) K/uL Eos # (Auto) (0-0.5) K/uL Baso # (Auto) (0-0.2) K/uL Immature Gran # (Auto) (0.00-0.02) K/uL RBC Morphology Sodium (136-145) mmol/L Potassium (3.5-5.1) mmol/L Chloride (98-107) mmol/L Carbon Dioxide (21-32) mmol/L Anion Gap (3-11) BUN (7-18) mg/dl Creatinine (0.6-1.2) mg/dl Est Cr Clr Drug Dosing ml/min Est GFR ( Amer) Est GFR (Non-Af Amer) BUN/Creatinine Ratio (10-20) Glucose (70-99) mg/dl POC Glucose 133 H 132 H 152 H (70-99) mg/dl Calcium (8.5-10.1) mg/dl 08/26/20 08/26/20 Range/Units 12:07 10:12 WBC (4.8-10.8) K/uL RBC (4.2-5.4) M/uL Hgb (12.0-16.0) g/dL Hct (37-47) % MCV (80-100) fL MCH (25-34) pg MCHC (32-36) g/dL RDW Std Deviation (36.4-46.3) fL RDW Coeff of Kirsty (11.5-14.5) % Plt Count (130-400) K/uL MPV (7.4-10.4) fL Immature Gran % (Auto) % Neut % (Auto) % Lymph % (Auto) % [place] % (Auto) % Eos % (Auto) % Baso % (Auto) % Neut # (Auto) (1.4-6.5) K/uL Lymph # (Auto) (1.2-3.4) K/uL [place] # (Auto) (0.11-0.59) K/uL Eos # (Auto) (0-0.5) K/uL Baso # (Auto) (0-0.2) K/uL Immature Gran # (Auto) (0.00-0.02) K/uL RBC Morphology Sodium (136-145) mmol/L Potassium (3.5-5.1) mmol/L Chloride (98-107) mmol/L Carbon Dioxide (21-32) mmol/L Anion Gap (3-11) BUN (7-18) mg/dl Creatinine (0.6-1.2) mg/dl Est Cr Clr Drug Dosing ml/min Est GFR ( Amer) Est GFR (Non-Af Amer) BUN/Creatinine Ratio (10-20) Glucose (70-99) mg/dl POC Glucose 155 H 151 H (70-99) mg/dl Calcium (8.5-10.1) mg/dl PG Care Time/CCT Total # of Minutes Spent Total Time Spent with Patient: Total time spent is greater than 50% in coordination of care (as documented) at patient's floor/unit and/or counseling patient: Coding Level of Care Code 16085 Subseq Hosp Care Lvl 3 Diagnoses S/P right colectomy Z90.49 Status post hysteroscopy Z98.890 CAD (coronary artery disease) I25.10 Associated angina: without angina Coronary Disease-Associated Artery/Lesion type: [place] artery [place] vs. transplanted heart: [place] heart Hyperlipidemia E78.5 Hyperlipidemia type: unspecified DVT (deep venous thrombosis) I82.511 Affected thrombotic vein of extremity: femoral Chronicity: chronic DVT location: lower extremity Laterality: right Type 2 DM with CKD stage 3 and hypertension E11.22; I12.9; N18.3 CKD (chronic kidney disease), stage IV N18.4 Malignant neoplasm of upper-outer quadrant of right breast in female, estrogen receptor positive C50.411; Z17.0 Osteoporosis M81.0 Osteoporosis type: unspecified Presence of current pathological fracture: unspecified Vitamin D deficiency E55.9 Hypocalcemia E83.51 Hyperparathyroidism E21.3 DVT prophylaxis Z29.9 (1) DVT (deep venous thrombosis) Affected thrombotic vein of extremity: femoral Chronicity: chronic DVT location: lower extremity Laterality: right Qualified Code(s): I82.511 - Chronic embolism and thrombosis of right femoral vein (2) Osteoporosis Osteoporosis type: unspecified Presence of current pathological fracture: unspecified Qualified Code(s): M81.0 - Age-related osteoporosis without current pathological fracture (3) CAD (coronary artery disease) Associated angina: without angina Coronary Disease-Associated Artery/Lesion type: [place] artery [place] vs. transplanted heart: [place] heart Qualified Co de(s): I25.10 - Atherosclerotic heart disease of [place] coronary artery without angina pectoris (4) Hyperlipidemia Hyperlipidemia type: unspecified Qualified Code(s): E78.5 - Hyperlipidemia, unspecified
[2020-08-27] MEDS ORDERED: BUMETANIDE 1 MG TAB PO SCH (09:00)
[2020-08-27] MEDS ORDERED: DOCUSATE SODIUM/SENNA 50/8.6MG TAB PO SCH (09:00)
[2020-08-27] MEDS ORDERED: POTASSIUM CHLORIDE 20 MEQ in SODIUM CHLORIDE 0.45 % 1,000 ML IV SCH (09:00)
--- NOTE | 2020-08-27 10:05 | Surgery Progress Note ---
Date of Service August 27, 2020 Assessment & Plan (1) S/P right colectomy: POD#1 right hemicolectomy and lysis of adhesions WBC: 4.5, Cr: 1.8 (1.9), Hb.8 Will plan to repeat CBC at 1pm and type and cross 2units pRBC's in the event she requires transfusion. Vital signs are currently stable and LÁZARO drain with serosanguineous output, does not appear to be actively bleeding. Will trial patient on clear liquids for today. Awaiting return of bowel function Keep sims catheter in for now Continue current pain regimen and will schedule IV tylenol Encourage IS and getting pt out of bed to chair today Appreciate hospitalists following along with us Admission and Anticipated Discharge Date Admission Date: August 26, 2020 Supervising Physician Co-Signing Physician Notes Covering for Dr. Quiroga. Patient seen and examined, labs reviewed, agree with above. 79-year-old female POD #1 laparoscopic assisted right hemicolectomy and lysis of adhesions primary anastomosis. Doing well, sort incision sites. She did have a loose bowel movement but was given a laxative. On exam she is afebrile with stable vitals. Her abdomen has dressings in place with some strikethrough. Otherwise soft, appropriate tender to palpation. Labs with slight drop in hemoglobin from preop, repeat stable. Will encourage ambulation, continue with clear liquids until meaningful return of bowel function. Hold bowel regimen for now givien recent colon surgery. Subjective Patient says she is having a little bit more pain than yesterday, mostly on her R side of abdomen. When she receives the pain medication it has been helping. She denies any nausea/vomiting. No flatus/BM yet. She feels thirsty this AM. Physical Exam Physical Exam: awake/alert Constitutional: no acute distress Respiratory: normal respiratory effort Gastrointestinal (Abdomen): Inspection/Auscultation: + abdomen distended (mild), + abdominal surgical incision (c/d/i, some shadowing to superior dressing. no active drainage) and + abdominal surgical drain present (serosang. 370cc) Percussion/Palpation: + abdomen tender (ttp right side of abd and adebayo-incisionally) and abdomen soft Results & Data ([facility]) Vital Signs (Past 12 Hours) Vital Signs Temp Pulse Resp BP Pulse Ox 08/27/20 09:12 84 174/71 H 08/27/20 07:40 37.1 C 81 16 129/62 94 08/27/20 06:14 86 134/67 08/27/20 03:30 37.3 C 82 18 113/56 L 97 08/26/20 22:41 37.3 C 83 16 119/58 L 97 PG Care Time/CCT Total # of Minutes Spent Total Time Spent with Patient: Total time spent is greater than 50% in coordination of care (as documented) at patient's floor/unit and/or counseling patient: Coding Level of Care Code None Diagnoses S/P right colectomy Z90.49
[2020-08-27] MEDS: ENOXAPARIN INJ 40 MG/0.4 ML SYR SQ SCH (10:07)
[2020-08-27] MEDS: hydrALAZINE HCL 25 MG TAB PO SCH ×3 (10:08→19:46)
[2020-08-27] MEDS: hydrALAZINE TAB 50 MG TAB PO SCH ×3 (10:08→19:46)
[2020-08-27] MEDS: ISOSORBIDE MONO EXTENDED REL 60 MG TABCR PO SCH (10:08)
[2020-08-27] MEDS: MAGNESIUM OXIDE 400 MG TAB PO SCH ×2 (10:08→19:41)
[2020-08-27] MEDS: ISOSORBIDE MONO EXTENDED REL 30 MG TABCR PO SCH (10:08)
[2020-08-27] MEDS: METOPROLOL SUCC 50MG EXT REL TAB PO SCH ×2 (10:08→19:46)
[2020-08-27] MEDS: SODIUM CHLOR 0.45% + 20MEQ KCL 20 MEQ/1,000 ML BAG IV SCH ×2 (10:11→19:40)
[2020-08-27] MEDS ORDERED: CALCIUM GLUCONATE 10% 1,000 MG in SODIUM CHLORIDE 0.9% 50 ML IV ONE (10:30)
[2020-08-27] MEDS: ACETAMINOPHEN 1,000 MG/100 ML VIAL IV SCH ×2 (11:15→18:26)
[2020-08-27] MEDS: CHOLECALCIFEROL 1,000 UNITS 25 MCG TAB PO SCH (11:38)
[2020-08-27] MEDS ORDERED: INSULIN GLARGINE SOLOSTAR 100 UNITS/ML 3 ML PEN SC ONE (12:36)
[2020-08-27] MEDS: INSULIN ASPART 100 UNITS/ML 3 ML PEN SC SCH ×3 (13:03→20:43)
[2020-08-27 13:23] LABS: Hematocrit (blood only) 23.3 % (37-47); Hemoglobin 7.6 g/dL (12.0-16.0); Mean Corpuscular Hgb Conc 32.6 g/dL (32-36); Mean Corpuscular Volume 101.3 fL (80-100); Mean Platelet Volume 9.6 fL (7.4-10.4); Platelet Count 154 K/uL (130-400); RDW Coefficient of Variation 14.2 % (11.5-14.5); RDW Standard Deviation 52.4 fL (36.4-46.3); White Blood Count 5.65 K/uL (4.8-10.8)
[2020-08-27] MEDS ORDERED: DICLOFENAC SOD 1% GEL 100 GM TUBE EXT PRN (14:45)
[2020-08-27] MEDS ORDERED: LIDOCAINE 5% 1 PATCH TD PRN (18:36)
[2020-08-27] MEDS: ATORVASTATIN 40 MG TAB PO SCH (19:42)
[2020-08-27] MEDS: OMEGA-3 (PURIFIED FISH OIL) 1 GM CAP PO SCH (19:42)
[2020-08-27] MEDS: BUMETANIDE 1 MG TAB PO SCH (19:43)
[2020-08-27] MEDS: TAMOXIFEN CITRATE 10 MG TABLET PO SCH (19:47)
[2020-08-27] MEDS: INSULIN GLARGINE SOLOSTAR 100 UNITS/ML 3 ML PEN SC SCH (20:42)
[2020-08-28] MEDS: ACETAMINOPHEN 1,000 MG/100 ML VIAL IV SCH ×3 (03:49→17:57)
[2020-08-28] MEDS: SODIUM CHLOR 0.45% + 20MEQ KCL 20 MEQ/1,000 ML BAG IV SCH ×3 (05:02→17:50)
--- NOTE | 2020-08-28 06:31 | Surgery Progress Note ---
Date of Service August 28, 2020 Assessment & Plan (1) S/P right colectomy: Postoperative day #2 right hemicolectomy. Surgical pathology is pending. We will proceed in the following manner: Continue analgesics Continue antiemetics Patient has reported a poor appetite so we will maintain her on clear liquids for the present time. We will continue IV fluids until certain her oral intake is adequate Low-grade fever has been noted: Atelectasis may be playing a role in this will encourage use of incentive spirometer. The patient has an indwelling Jacques catheter which will likely remove today. Prior to removal we will obtain a urinalysis and culture if necessary Acute blood loss anemia noted: The patient is asymptomatic She is not hypotensive or tachycardic. She is noted to have good urine output -Repeat labs for this morning are pending: Patient has been typed and crossed for packed red blood cells in the event that transfusion is required/recommended Lovenox is in place for DVT prevention Discharge home will be dependent on ability to advance patient's diet further Admission and Anticipated Discharge Date Admission Date: August 26, 2020 Supervising Physician Co-Signing Physician Notes Covering for Dr. Quiroga. Patient seen and examined, labs reviewed, agree with above. 79-year-old female POD #2 laparoscopic assisted right hemicolectomy and lysis of adhesions w/ primary anastomosis. Doing well, sore incision sites. She did have a few more loose bowel movements, but also complains of some nausea and is not interested in her liquids. On exam she is afebrile with stable vitals. Her abdomen is soft, appropriate tender to palpation. LÁZARO serosanguineous. Incisions with pamela, no evidence of infection. Labs unremarkable stable hemoglobin. Will encourage ambulation, continue with clear liquids until meaningful return of bowel function. Continue Jacques has patient is not ambulating much. Subjective Patient is sitting in bedside chair. She denies any chest pain, shortness of breath, fevers, shakes, chills. She denies any lightheadedness or dizziness. She does note some minor abdominal pain. She notes she has had a small bowel movement since surgery. She is currently receiving clear liquids and notes that this is not causing any worsening abdominal pain but she does note she has a very poor appetite and does not desire anything further at this time. Physical Exam Constitutional: well developed; no acute distress Gastrointestinal (Abdomen): Abdomen is soft and nondistended. Bowel sounds are present. Is minor pain with palpation near her surgical incisions. LÁZARO drain is in place which is drained 120 cc of serosanguineous fluid on last shift. Results & Data ([facility]) Vital Signs (Past 12 Hours) Vital Signs Temp Pulse Resp BP Pulse Ox 08/27/20 22:24 37.7 C H 87 18 149/69 H 95 08/27/20 19:51 82 132/53 L PG Care Time/CCT Total # of Minutes Spent Total Time Spent with Patient: Total time spent is greater than 50% in coordination of care (as documented) at patient's floor/unit and/or counseling patient: Coding Level of Care Code None Diagnoses S/P right colectomy Z90.49
[2020-08-28 07:06] LABS: Basophils # (auto) 0.01 K/uL (0-0.2); Basophils % (auto) 0.1 %; Eosinophils # (auto) 0.04 K/uL (0-0.5); Eosinophils % (auto) 0.5 %; Hemoglobin 8.2 g/dL (12.0-16.0); Immature Granulocytes # (auto) 0.01 K/uL (0.00-0.02); Immature Granulocytes % (auto) 0.1 %; Lymphocytes # (auto) 0.41 K/uL (1.2-3.4); Lymphocytes % (auto) 5.5 %; Mean Corpuscular Hemoglobin 32.7 pg (25-34); Mean Corpuscular Hgb Conc 31.5 g/dL (32-36); Mean Corpuscular Volume 103.6 fL (80-100); Monocytes # (auto) 0.82 K/uL (0.11-0.59); Monocytes % (auto) 10.9 %; Neutrophils # (auto) 6.22 K/uL (1.4-6.5); Neutrophils % (auto) 82.9 %; Platelet Count 171 K/uL (130-400); RDW Coefficient of Variation 14.1 % (11.5-14.5); RDW Standard Deviation 52.8 fL (36.4-46.3); Red Blood Count 2.51 M/uL (4.2-5.4); White Blood Count 7.51 K/uL (4.8-10.8)
[2020-08-28 07:43] LABS: Albumin Level 2.5 gm/dl (3.4-5.0); BUN Creatinine Ratio 15.3 (10-20); Calcium 7.3 mg/dl (8.5-10.1); Creatinine Clr Calc Pharmacy 29.1 ml/min; Est GFR (African American) 30.3; Est GFR (Non-African American) 26.1; Potassium 4.8 mmol/L (3.5-5.1)
[2020-08-28 07:46] LABS: Albumin Globulin Ratio 0.7 (0.9-2); Bilirubin,Total 1.1 mg/dl (0.2-1); Ferritin 92.1 ng/ml (8-388); Globulin 3.7 gm/dl (2.5-4.0); Total Protein 6.2 gm/dl (6.4-8.2)
--- NOTE | 2020-08-28 08:08 | Hospitalist Progress Note ---
Date of Service August 28, 2020 Assessment & Plan (1) S/P right colectomy: * POD#2 s/p : * Hysteroscopy First Procedure(Not Applicable) - Cathy Calderon, DO * Dilation and Curettage, Possible Polypectomy(Not Applicable) - Cathy Calderon, DO * Laparoscopic Extended Hemicolectomy, Extensive enterolysis with Dr. Quiroga * EBL 5cc+ 20cc.. LÁZARO output 370cc * She did have a history of open catrachita and had extensive adhesions per operative report. Pathology pending from both * Pre-op h/h 10.1/30.5. * However, this lab value was also drawn July 15, 2020 inpatient with colon mass which was likely causing her anemia and was found on work-up for such--She follows locally with Dr. Hernandez and states that she was found to be iron deficient and there were talks of giving her IV iron transfusions as she is unable to tolerate p.o. but that she was never set up for transfusions at that time * H&H improved to 8.2/26 on morning labs. * IVF changed to 1/2NS +20k@ 125cc/hr on 08/27 and patient with slightly low bicarb due to diarrheal loses and to continue on IVF with clear liquids for today due to poor appetite secondary to nausea this morning * H/h improved to 8.2/26 today * --> Added iron studies: Iron low 27, TIBC 227, transferrin %sat 11, ferritin 92 * --> Giving dose of IV Venofer today as previously going to be arranged by heme/onc as outpatient. * Can continue infusions if tolerates, as she did not previously tolerate PO supplementation due to n/v * SpO2 96% on room air -- encouraged incentive spirometer for low grade temp however denied fever/chills and WBC wnl with white shift * Pain control per primary service * Continued bowel regimen * Lovenox 40 mg subcu daily for DVT prophylaxis * Monitor daily labs and replace electrolytes, blood products/iron as needed (2) Status post hysteroscopy: * As above by Yumiko Coley * Sims per primary team -- remaining in place for today + UA prior to discontinuation per surgical note this morning (3) CAD (coronary artery disease): * Worked up for cataract surgery and had an abnormal stress test in the past which prompted CABG x3v (VALERIO-LAD, SVG to left CX, and LAD diagonal). * She does follow with Dr. Betancourt pending consult [facility] cardiology if needed during this stay * --Recent dobutamine stress echocardiogram on 08/03/2020 negative for myocardial ischemia at 84% of the maximum predicted heart rate. No dobutamine induced chest pain, EKG changes. Baseline echocardiogram notes normal LV systolic function and mild LVH * She is not on JESSICA/ARB therapy at this time secondary to her chronic kidney disease * She denies any chest pain and EKGs are similar to previous * Regular rate and rhythm on examination however a murmur was heard as documented in the physical examination which is likely due to her anemia and will continue to monitor. * Continue recently increased metoprolol succinate 150 mg by mouth twice daily * Continue usual isosorbide 90 mg daily, hydralazine 75 mg three times daily, atorvastatin 40 mg at bedtime and omega-3 however Bumex was held this morning of 08/27 for low BP and resumed this morning * Aspirin to be resumed by primary service when stable * EKG with chest pain * Continue to monitor (4) Hyperlipidemia: * Continue atorvastatin 40 mg as above (5) DVT (deep venous thrombosis): * Diagnosed with a right lower extremity DVT in March 2020 and was placed on Eliquis at that time * She has had her Eliquis held for the past 5 days along with her aspirin 81 mg --she has been on this for approximately 6 months * Repeat ultrasound prior to surgery indicated a nonocclusive thrombus within her right femoral vein and no definitive popliteal thrombus visualized * SCDs, Lovenox 40 mg for DVT prophylaxis from surgery * Would recommend resuming therapy when felt safe to do so by general surgery and hemostasis/drain removed as well (6) Type 2 DM with CKD stage 3 and hypertension: * Actually with stage IV CKD, diabetes and hypertension * Last A1c well controlled at 5.7 in April 2020 and will repeat with a.m. labs * She is maintained on insulin glargine 60 units at bedtime with sliding scale coverage at baseline * Patient got half of her usual Lantus last evening however for some reason this was held for parameters/protocol and insulin SSI was also placed on hold * Blood sugars acceptable but will continue on 45u this evening (usual 60u) given lack of PO intake secondary to n/v above and will just have tightened ISS for now. Resume usual 60u HS if diet advanced and tolerating tomorrow * Continue to monitor (7) CKD (chronic kidney disease), stage IV: * Actually CKD stage IV as above. Follows locally with Dr. Butler. * GFR 26.1, better than pre-op * Suspect some of his worsening of her kidney disease related to ongoing anemia which could possibly improve with treatment * BMP is stable at 1.81 * GIveing IV Venofer today as above as well. Updated Dr. Butler of hospitalization and vit d/calcium and can touch base if needed * Bumex resumed this morning as above * Avoid nephrotoxic agents and if needed minimize exposure time * Continue to monitor BMP (8) Malignant neoplasm of upper-outer quadrant of right breast in female, estrogen receptor positive: * She was diagnosed with breast cancer in 2018, status post lumpectomy and radiation. Follows locally with Dr. Hernandez and is maintained on tamoxifen which has been continued * She states repeat mammograms have indicated no further recurrence or other suspicious areas * No acute needs (9) Osteoporosis: * Weekly Fosamax last dose was last week. * no acute needs (10) Vitamin D deficiency: * Initially reports in Dr. Butler's note from outpatient noting patient was to hold her vitamin D for hypercalcemia, likely secondary to cancer as above . PTH greater than 200 * Her calcium on a.m. labs was 6.9 with an albumin of 2.5 and patient was given 1 g of IV calcium. * Her vitamin D level in the past low 21.11 July 2020 and placed on oral supplementation * Ca improved today and corrected for albumin now wnl * Continue oral supplementation at discharge and continue to monitor calcium on am labs (11) Hypocalcemia: * Calcium 6.9 as above and given 1 g IV calcium gluconate 08/27 continue to monitor on a.m. labs * Ca 7.3 with albumin 2.5 -- corrected 8.5 * Vit D supplementation as above (12) Hyperparathyroidism: * Last PTH greater than 200 as above. History of vitamin deficiency however her oral supplementation was stopped per nephrology's outpatient notes due to history of hypercalcemia however review does indicate that she is still low vitamin D and now with hypocalcemia and will resume vitamin D supplementation at this time * Continue to monitor a.m. labs and would recommend she follow-up with nephrology on discharge (13) DVT prophylaxis: * Eliquis held preoperatively for 5 days and continues to be held postoperatively as above for history of fairly recent DVT in March 2020 * Continues with SCDs, * Lovenox SQ as above Dispo: Continued inpatient stay Thank you for allowing the hospitalist group to participate in the care of Ms. Unger. Hospitalist group will follow. Admission and Anticipated Discharge Date Admission Date: August 26, 2020 Supervising Physician Co-Signing Physician Notes RICA Supervision Note: I did not personally see or examine the patient today, but I verified all anthony points of RICA Reyes's assessment and plan with the following exceptions/additions: Hold Bumex while on IVFs Subjective Patient evaluated this morning. She states that the pain has improved compared to yesterday. she continues to have loose bowel movements. She denies any blood or dark in appearance to stool. She did have an episode of emesis this morning 150 cc . She then again had an additional emesis after having geovani carly with her pills however she denies any pills in her regurgitation.. She denies any worsening abdominal pain. She states that this did occur prior to her iron infusion which was initially concerned given her prior history to intolerance to oral iron. She did note purnima t she was able to tolerate IV iron in the past. She states she was up in the chair this morning from 4 to 5 AM in general surgery would like her to continue to get out of bed as much as possible. She states that this has been concerning at times due to shortness of breath because of her improvement with IV iron transfusions and improvement of blood counts on morning labs. She continues on clear liquid diet given her appetite and will continue IV fluids for this time and maintain Sims catheter discretion of service. She states that due to the nausea she has had increased lower rib discomfort and does need continued reinforcement on use incentive spirometer to prevent atelectasis and low-grade temperatures which had not occurred since yesterday afternoon after adding incentive spirometry to her medical regimen. .She states that with addition of Voltaren to her right she has had significant relief of that discomfort that she was having yesterday afternoon. She denies chest pain, fever, chills, shortness of breath at rest, headache or nausea since emesis this. Review of Systems Review of Systems: All systems reviewed & are unremarkable except as noted in HPI & below Physical Exam Physical Exam: Patient is well developed, well nourished, Resting comfortably in bed at this time. General pallor noted but slightly improved. HEENT: head atraumatic, normocephalic, trachea midline without deviation, slightly dry Resp: CTAB, no w/c/r. diminished breath sounds in the bases Cardiac: RRR, no m/r/g. no edema or calf tenderness Abd: +BS, soft, tender to palpation around incisions, minimal distension(less). surgical incision c/d/i . LÁZARO with scan serosanguineous drainage. LÁZARO drain with scant bloody drainage MSK: moves all extremities, strength 5/5 throughout Skin: warm , moist : sims draining yellow urine Psych: AOx3 Neuro: no focal deficits Results & Data Results & Data ([facility]) Vital Signs (Past 12 Hours) Vital Signs Temp Pulse Resp BP Pulse Ox 08/28/20 07:14 37.1 C 78 16 165/65 H 98 08/27/20 22:24 37.7 C H 87 18 149/69 H 95 Laboratory Results 08/28/20 08/28/20 08/28/20 Range/Units 06:22 06:22 06:22 WBC 7.51 (4.8-10.8) K/uL RBC 2.51 L (4.2-5.4) M/uL Hgb 8.2 L (12.0-16.0) g/dL Hct 26.0 L (37-47) % MCV 103.6 H (80-100) fL MCH 32.7 (25-34) pg MCHC 31.5 L (32-36) g/dL RDW Std Deviation 52.8 H (36.4-46.3) fL RDW Coeff of Kirsty 14.1 (11.5-14.5) % Plt Count 171 (130-400) K/uL MPV 9.0 (7.4-10.4) fL Immature Gran % (Auto) 0.1 % Neut % (Auto) 82.9 % Lymph % (Auto) 5.5 % Chaves % (Auto) 10.9 % Eos % (Auto) 0.5 % Baso % (Auto) 0.1 % Neut # (Auto) 6.22 (1.4-6.5) K/uL Lymph # (Auto) 0.41 L (1.2-3.4) K/uL Chaves # (Auto) 0.82 H (0.11-0.59) K/uL Eos # (Auto) 0.04 (0-0.5) K/uL Baso # (Auto) 0.01 (0-0.2) K/uL Immature Gran # (Auto) 0.01 (0.00-0.02) K/uL Sodium 139 (136-145) mmol/L Potassium 4.8 (3.5-5.1) mmol/L Chloride 114 H (98-107) mmol/L Carbon Dioxide 19 L (21-32) mmol/L Anion Gap 6.0 (3-11) BUN 28 H (7-18) mg/dl Creatinine 1.81 H (0.6-1.2) mg/dl Est Cr Clr Drug Dosing 29.1 ml/min Est GFR ( Amer) 30.3 Est GFR (Non-Af Amer) 26.1 BUN/Creatinine Ratio 15.3 (10-20) Glucose 139 H (70-99) mg/dl POC Glucose (70-99) mg/dl Estimat Average Glucose Pending Hemoglobin A1c Pending Calcium 7.3 L (8.5-10.1) mg/dl Iron 27 L (35-150) mcg/dl TIBC 227 L (250-450) mcg/dl Transferrin 177 L (200-360) mg/dl Transferrin % Sat 11 L (15-50) % Ferritin 92.1 (8-388) ng/ml Total Bilirubin 1.1 H (0.2-1) mg/dl AST 96 H (15-37) U/L ALT 15 (12-78) U/L Alkaline Phosphatase 43 L (45-117) U/L Total Protein 6.2 L (6.4-8.2) gm/dl Albumin 2.5 L (3.4-5.0) gm/dl Globulin 3.7 (2.5-4.0) gm/dl Albumin/Globulin Ratio 0.7 L (0.9-2) Blood Type Blood Type Recheck Antibody Screen Crossmatch 08/27/20 08/27/20 08/27/20 Range/Units 20:37 17:17 12:26 WBC 5.65 (4.8-10.8) K/uL RBC 2.30 L (4.2-5.4) M/uL Hgb 7.6 L (12.0-16.0) g/dL Hct 23.3 L (37-47) % MCV 101.3 H (80-100) fL MCH 33.0 (25-34) pg MCHC 32.6 (32-36) g/dL RDW Std Deviation 52.4 H (36.4-46.3) fL RDW Coeff of Kirsty 14.2 (11.5-14.5) % Plt Count 154 (130-400) K/uL MPV 9.6 (7.4-10.4) fL Immature Gran % (Auto) % Neut % (Auto) % Lymph % (Auto) % Chaves % (Auto) % Eos % (Auto) % Baso % (Auto) % Neut # (Auto) (1.4-6.5) K/uL Lymph # (Auto) (1.2-3.4) K/uL Chaves # (Auto) (0.11-0.59) K/uL Eos # (Auto) (0-0.5) K/uL Baso # (Auto) (0-0.2) K/uL Immature Gran # (Auto) (0.00-0.02) K/uL Sodium (136-145) mmol/L Potassium (3.5-5.1) mmol/L Chloride (98-107) mmol/L Carbon Dioxide (21-32) mmol/L Anion Gap (3-11) BUN (7-18) mg/dl Creatinine (0.6-1.2) mg/dl Est Cr Clr Drug Dosing ml/min Est GFR ( Amer) Est GFR (Non-Af Amer) BUN/Creatinine Ratio (10-20) Glucose (70-99) mg/dl POC Glucose 233 H 177 H (70-99) mg/dl Estimat Average Glucose Hemoglobin A1c Calcium (8.5-10.1) mg/dl Iron (35-150) mcg/dl TIBC (250-450) mcg/dl Transferrin (200-360) mg/dl Transferrin % Sat (15-50) % Ferritin (8-388) ng/ml Total Bilirubin (0.2-1) mg/dl AST (15-37) U/L ALT (12-78) U/L Alkaline Phosphatase (45-117) U/L Total Protein (6.4-8.2) gm/dl Albumin (3.4-5.0) gm/dl Globulin (2.5-4.0) gm/dl Albumin/Globulin Ratio (0.9-2) Blood Type Blood Type Recheck Antibody Screen Crossmatch 08/27/20 08/27/20 08/27/20 Range/Units 12:10 10:09 09:28 WBC (4.8-10.8) K/uL RBC (4.2-5.4) M/uL Hgb (12.0-16.0) g/dL Hct (37-47) % MCV (80-100) fL MCH (25-34) pg MCHC (32-36) g/dL RDW Std Deviation (36.4-46.3) fL RDW Coeff of Kirsty (11.5-14.5) % Plt Count (130-400) K/uL MPV (7.4-10.4) fL Immature Gran % (Auto) % Neut % (Auto) % Lymph % (Auto) % Chaves % (Auto) % Eos % (Auto) % Baso % (Auto) % Neut # (Auto) (1.4-6.5) K/uL Lymph # (Auto) (1.2-3.4) K/uL Chaves # (Auto) (0.11-0.59) K/uL Eos # (Auto) (0-0.5) K/uL Baso # (Auto) (0-0.2) K/uL Immature Gran # (Auto) (0.00-0.02) K/uL Sodium (136-145) mmol/L Potassium (3.5-5.1) mmol/L Chloride (98-107) mmol/L Carbon Dioxide (21-32) mmol/L Anion Gap (3-11) BUN (7-18) mg/dl Creatinine (0.6-1.2) mg/dl Est Cr Clr Drug Dosing ml/min Est GFR ( Amer) Est GFR (Non-Af Amer) BUN/Creatinine Ratio (10-20) Glucose (70-99) mg/dl POC Glucose 222 H 118 H (70-99) mg/dl Estimat Average Glucose Hemoglobin A1c Calcium (8.5-10.1) mg/dl Iron (35-150) mcg/dl TIBC (250-450) mcg/dl Transferrin (200-360) mg/dl Transferrin % Sat (15-50) % Ferritin (8-388) ng/ml Total Bilirubin (0.2-1) mg/dl AST (15-37) U/L ALT (12-78) U/L Alkaline Phosphatase (45-117) U/L Total Protein (6.4-8.2) gm/dl Albumin 2.5 L (3.4-5.0) gm/dl Globulin (2.5-4.0) gm/dl Albumin/Globulin Ratio (0.9-2) Blood Type Blood Type Recheck Antibody Screen Crossmatch 08/27/20 08/27/20 Range/Units 09:28 05:07 WBC (4.8-10.8) K/uL RBC (4.2-5.4) M/uL Hgb (12.0-16.0) g/dL Hct (37-47) % MCV (80-100) fL MCH (25-34) pg MCHC (32-36) g/dL RDW Std Deviation (36.4-46.3) fL RDW Coeff of Kirsty (11.5-14.5) % Plt Count (130-400) K/uL MPV (7.4-10.4) fL Immature Gran % (Auto) % Neut % (Auto) % Lymph % (Auto) % Chaves % (Auto) % Eos % (Auto) % Baso % (Auto) % Neut # (Auto) (1.4-6.5) K/uL Lymph # (Auto) (1.2-3.4) K/uL Chaves # (Auto) (0.11-0.59) K/uL Eos # (Auto) (0-0.5) K/uL Baso # (Auto) (0-0.2) K/uL Immature Gran # (Auto) (0.00-0.02) K/uL Sodium (136-145) mmol/L Potassium (3.5-5.1) mmol/L Chloride (98-107) mmol/L Carbon Dioxide (21-32) mmol/L Anion Gap (3-11) BUN (7-18) mg/dl Creatinine (0.6-1.2) mg/dl Est Cr Clr Drug Dosing ml/min Est GFR ( Amer) Est GFR (Non-Af Amer) BUN/Creatinine Ratio (10-20) Glucose (70-99) mg/dl POC Glucose (70-99) mg/dl Estimat Average Glucose Hemoglobin A1c Calcium (8.5-10.1) mg/dl Iron (35-150) mcg/dl TIBC (250-450) mcg/dl Transferrin (200-360) mg/dl Transferrin % Sat (15-50) % Ferritin (8-388) ng/ml Total Bilirubin (0.2-1) mg/dl AST (15-37) U/L ALT (12-78) U/L Alkaline Phosphatase (45-117) U/L Total Protein (6.4-8.2) gm/dl Albumin (3.4-5.0) gm/dl Globulin (2.5-4.0) gm/dl Albumin/Globulin Ratio (0.9-2) Blood Type A Positive Blood Type Recheck A Positive Antibody Screen NEGATIVE Crossmatch See Detail PG Care Time/CCT Total # of Minutes Spent Total Time Spent with Patient: Total time spent is greater than 50% in coordination of care (as documented) at patient's floor/unit and/or counseling patient: Coding Level of Care Code 19889 Subseq Hosp Care Lvl 3 Diagnoses S/P right colectomy Z90.49 Status post hysteroscopy Z98.890 CAD (coronary artery disease) I25.10 Associated angina: without angina Coronary Disease-Associated Artery/Lesion type: [place] artery [place] vs. transplanted heart: [place] heart Hyperlipidemia E78.5 Hyperlipidemia type: unspecified DVT (deep venous thrombosis) I82.511 Affected thrombotic vein of extremity: femoral Chronicity: chronic DVT location: lower extremity Laterality: right Type 2 DM with CKD stage 3 and hypertension E11.22; I12.9; N18.3 CKD (chronic kidney disease), stage IV N18.4 Malignant neoplasm of upper-outer quadrant of right breast in female, estrogen receptor positive C50.411; Z17.0 Osteoporosis M81.0 Osteoporosis type: unspecified Presence of current pathological fracture: unspecified Vitamin D deficiency E55.9 Hypocalcemia E83.51 Hyperparathyroidism E21.3 DVT prophylaxis Z29.9 (1) DVT (deep venous thrombosis) Affected thrombotic vein of extremity: femoral Chronicity: chronic DVT location: lower extremity Laterality: right Qualified Code(s): I82.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 transplanted heart: [place] heart Qualified Code(s): I25.10 - Atherosclerotic heart disease of [place] coronary artery w ithout angina pectoris (4) Hyperlipidemia Hyperlipidemia type: unspecified Qualified Code(s): E78.5 - Hyperlipidemia, unspecified
[2020-08-28 08:09] LABS: Estimated Average Glucose 114 mg/dl; Hemoglobin A1C 5.6 % (4.5-5.6)
[2020-08-28] MEDS ORDERED: IRON SUCROSE 300 MG in SODIUM CHLORIDE 0.9% 250 ML IV ONE (08:30)
[2020-08-28] MEDS: ONDANSETRON INJ 2 MG/ML 2 ML VIAL IV PRN ×2 (08:52→14:54)
[2020-08-28] MEDS: INSULIN ASPART 100 UNITS/ML 3 ML PEN SC SCH ×4 (09:00→21:11)
[2020-08-28] MEDS: hydrALAZINE HCL 25 MG TAB PO SCH ×3 (09:34→21:06)
[2020-08-28] MEDS: hydrALAZINE TAB 50 MG TAB PO SCH ×3 (09:34→21:06)
[2020-08-28] MEDS: METOPROLOL SUCC 50MG EXT REL TAB PO SCH ×2 (09:35→21:08)
[2020-08-28] MEDS: MAGNESIUM OXIDE 400 MG TAB PO SCH ×2 (09:35→21:05)
[2020-08-28] MEDS: ENOXAPARIN INJ 40 MG/0.4 ML SYR SQ SCH (09:35)
[2020-08-28] MEDS: ISOSORBIDE MONO EXTENDED REL 30 MG TABCR PO SCH (09:35)
[2020-08-28] MEDS: ISOSORBIDE MONO EXTENDED REL 60 MG TABCR PO SCH (09:35)
[2020-08-28] MEDS: CHOLECALCIFEROL 1,000 UNITS 25 MCG TAB PO SCH (09:35)
[2020-08-28] MEDS: DICLOFENAC SOD 1% GEL 100 GM TUBE EXT PRN ×3 (09:37→21:55)
[2020-08-28 16:40] LABS: Appearance Urine Clear (Clear); Bilirubin Urine Negative (Negative); Blood Urine Negative (Negative); Color Urine Yellow; Glucose Urine UA Negative (Negative); Ketones Urine Negative (Negative); Leukocyte Esterase Urine Negative (Negative); Nitrite Urine Negative (Negative); Protein Urine Negative (Negative); Specific Gravity Urine 1.015 (1.000-1.030); Urobilinogen Urine Negative (Negative)
[2020-08-28] MEDS: HYDROmorphone INJ 0.5 MG/0.5 ML SYR IV PRN ×2 (17:49→21:54)
[2020-08-28] MEDS: TAMOXIFEN CITRATE 10 MG TABLET PO SCH (21:04)
[2020-08-28] MEDS: ATORVASTATIN 40 MG TAB PO SCH (21:05)
[2020-08-28] MEDS: BUMETANIDE 1 MG TAB PO SCH (21:06)
[2020-08-28] MEDS: OMEGA-3 (PURIFIED FISH OIL) 1 GM CAP PO SCH (21:08)
[2020-08-28] MEDS: INSULIN GLARGINE SOLOSTAR 100 UNITS/ML 3 ML PEN SC SCH (21:10)
[2020-08-29] MEDS: SODIUM CHLOR 0.45% + 20MEQ KCL 20 MEQ/1,000 ML BAG IV SCH ×2 (02:28→09:54)
[2020-08-29] MEDS: ACETAMINOPHEN 1,000 MG/100 ML VIAL IV SCH ×3 (02:29→18:21)
[2020-08-29 06:02] LABS: Basophils # (auto) 0.01 K/uL (0-0.2); Basophils % (auto) 0.2 %; Eosinophils # (auto) 0.12 K/uL (0-0.5); Eosinophils % (auto) 2.1 %; Hematocrit (blood only) 22.1 % (37-47); Hemoglobin 7.2 g/dL (12.0-16.0); Immature Granulocytes # (auto) 0.01 K/uL (0.00-0.02); Immature Granulocytes % (auto) 0.2 %; Lymphocytes # (auto) 0.54 K/uL (1.2-3.4); Lymphocytes % (auto) 9.6 %; Mean Corpuscular Hgb Conc 32.6 g/dL (32-36); Mean Corpuscular Volume 101.4 fL (80-100); Monocytes # (auto) 0.64 K/uL (0.11-0.59); Monocytes % (auto) 11.4 %; Neutrophils # (auto) 4.28 K/uL (1.4-6.5); Neutrophils % (auto) 76.5 %; Platelet Count 165 K/uL (130-400); RDW Coefficient of Variation 14.2 % (11.5-14.5); RDW Standard Deviation 52.7 fL (36.4-46.3); Red Blood Count 2.18 M/uL (4.2-5.4)
--- NOTE | 2020-08-29 06:15 | Surgery Progress Note ---
Date of Service August 29, 2020 Assessment & Plan (1) S/P right colectomy: Postoperative day #3 right hemicolectomy. Surgical pathology is pending. Continue analgesics Continue antiemetics -Due to the patient's reported nausea vomiting yesterday as well as her poor appetite we will maintain on clear liquids for the present time We will continue IV fluids until certain her oral intake is adequate Low-grade fever noted yesterday which has resolved: Atelectasis was likely contributing to this. Use of incentive spirometer has been encouraged. The patient has an indwelling Jacques catheter which will be removed today. We will check a urinalysis Acute blood loss anemia noted: The patient remains asymptomatic without hypotension or tachycardia. Patient has been typed and crossed for packed red blood cells in the event that transfusion is required/recommended but will hold on this modality due to her lack of symptoms PT and OT evaluations have been requested to help patient increase her mobility. Lovenox is in place for DVT prevention Discharge home will be dependent on ability to advance patient's diet further Admission and Anticipated Discharge Date Admission Date: August 26, 2020 Supervising Physician Co-Signing Physician Notes Patient seen and examined, labs reviewed, agree with above. POD #3 laparoscopic assisted right hemicolectomy. She continues to have loose bowel movements. She has passed a very small amount of blood flatus. She had some nausea yesterday, but was able to tolerate a good portion of her clear liquid tray for dinner. She ambulated several times yesterday. Jacques catheter was removed this morning. On exam she is afebrile with stable vitals. Abdomen soft, probably tender to palpation. Incisions with dressings in place. No evidence of infection. WBC normal, hematocrit stable but low. We will advance her to full liquid diet, encourage ambulation, PT consulted. Recommend out of bed to chair for several hours today. Subjective Patient notes her abdomen feels somewhat better than yesterday however she did have 2 episodes of nausea vomiting yesterday. She does report having a bowel movement last night. Notes she is consuming small amount of clear liquids but really does not have much of an appetite. Is only ambulating small amounts in her room. She denies shortness of breath. She denies any fever shakes or chills Physical Exam Constitutional: well developed and well nourished; no acute distress Gastrointestinal (Abdomen): Patient's abdomen is soft without significant distention. Her bowel sounds are present. She does have pain with palpation near her surgical incisions. LÁZARO drain is in place which is drained 275 cc last 24 hours and 110 cc last shift. Results & Data ([facility]) Vital Signs (Past 12 Hours) Vital Signs Temp Pulse Resp BP Pulse Ox 08/28/20 23:01 37.5 C 70 18 136/72 98 PG Care Time/CCT Total # of Minutes Spent Total Time Spent with Patient: Total time spent is greater than 50% in coordination of care (as documented) at patient's floor/unit and/or counseling patient: Coding Level of Care Code None Diagnoses S/P right colectomy Z90.49
[2020-08-29 06:36] LABS: Albumin Level 2.3 gm/dl (3.4-5.0); BUN Creatinine Ratio 15.8 (10-20); Bilirubin Direct 0.2 mg/dl (0-0.2); Creatinine Clr Calc Pharmacy 30.5 ml/min; Est GFR (Non-African American) 27.6; Magnesium 2.2 mg/dl (1.8-2.4); Potassium 4.5 mmol/L (3.5-5.1)
[2020-08-29 06:37] LABS: RBC Morphology Unremarkable
[2020-08-29 06:39] LABS: Bilirubin,Total 0.8 mg/dl (0.2-1); Total Protein 5.8 gm/dl (6.4-8.2)
[2020-08-29 07:02] LABS: Appearance Urine Clear (Clear); Bacteria Urine Automated Negative (Negative); Bilirubin Urine Negative (Negative); Blood Urine Negative (Negative); Color Urine Yellow; Glucose Urine UA Negative (Negative); Ketones Urine Negative (Negative); Leukocyte Esterase Urine Negative (Negative); Nitrite Urine Negative (Negative); Protein Urine Trace (Negative); Specific Gravity Urine 1.021 (1.000-1.030); Urobilinogen Urine Negative (Negative)
[2020-08-29] MEDS: INSULIN ASPART 100 UNITS/ML 3 ML PEN SC SCH ×4 (09:21→20:33)
[2020-08-29] MEDS: CHOLECALCIFEROL 1,000 UNITS 25 MCG TAB PO SCH (09:22)
[2020-08-29] MEDS: hydrALAZINE HCL 25 MG TAB PO SCH ×3 (09:22→20:25)
[2020-08-29] MEDS: hydrALAZINE TAB 50 MG TAB PO SCH ×3 (09:23→20:25)
[2020-08-29] MEDS: ISOSORBIDE MONO EXTENDED REL 30 MG TABCR PO SCH (09:23)
[2020-08-29] MEDS: ISOSORBIDE MONO EXTENDED REL 60 MG TABCR PO SCH (09:23)
[2020-08-29] MEDS: MAGNESIUM OXIDE 400 MG TAB PO SCH ×2 (09:24→20:27)
[2020-08-29] MEDS: METOPROLOL SUCC 50MG EXT REL TAB PO SCH ×2 (09:24→20:21)
[2020-08-29] MEDS: ENOXAPARIN INJ 40 MG/0.4 ML SYR SQ SCH (09:24)
--- NOTE | 2020-08-29 09:44 | Hospitalist Progress Note ---
Date of Service August 29, 2020 Assessment & Plan (1) S/P right colectomy: 80-year-old female past medical history of right-sided breast cancer diagnosed in 2019 status post lumpectomy and radiation March 2020 by web administrator who ordered venous Dopplers for increased right lower extremity e juwan and showed proximal femoral DVT and was started on Eliquis. Subsequently seen in June 2020 by hematology oncology where it was found that her hemoglobin had dropped from 12.3--> 9.8 which prompted an anemia work-up with GI which revealed a colon mass. Note, CT abdomen pelvis and chest 2020 reported no evidence of metastatic disease in the chest, abdomen, or pelvis. Imaging at that time showed 2 polypoid lesions suggested in the right colon neoplasm being the diagnosis of exclusion. Also noted endometrial thickening concerning for endometrial neoplasm as well as a 2.2 cm indeterminate lesion in the interpolar left kidney. Presented for hemicolectomy with Dr. Quiroga with, and hysteroscopy with Dr. Calderon for endometrial thickening seen on imaging POD#3 s/p : * Hysteroscopy First Procedure(Not Applicable) - Cathy Calderon, * Dilation and Curettage, Possible Polypectomy(Not Applicable) - Cathy Calderon, DO * Laparoscopic Extended Hemicolectomy, Extensive enterolysis with Dr. Quiroga EBL 5cc+ 20cc. LÁZARO output 370cc +385 + 80cc She did have a history of open catrachita and had extensive adhesions per operative report. Pathology pending from both No further n/v and patient advanced to full liquid diet today IV fluids changed to D5 water sodium bicarbonate 50 mEq 125 cc today No further low-grade temperatures since initiation of continued encouragement to utilize spirometer DVT Proph --> Discussed with general surgery Dr Cotter this morning and will discontinue Lovenox and resume her Eliquis 5 mg twice daily and aspirin 81 mg daily given history of right lower extremity DVT cancer patient with likely colon ca Pre-op h/h 10.1/30.5. However, this lab value was also drawn July 15, 2020 inpatient with colon mass which was likely causing her anemia and was found on work-up for such--She follows locally with Dr. Hernandez and states that she was found to be iron deficient and there were talks of giving her IV iron transfusions as she is unable to tolerate p.o. but that she was never set up for transfusions at that time Venofer IV on 08/28 and 08/29. --Would repeat again in AM for 3rd dose while inpatient given intolerance to PO, for iron studies with : Iron low 27, TIBC 227, transferrin %sat 11, ferritin 92 CBC, CMP, mag in AM (2) Status post hysteroscopy: * As above by Yumiko Coley * Jacques per primary team which has been discontinued today and she has voided since that time * Pathology pending (3) CAD (coronary artery disease): * Worked up for cataract surgery and had an abnormal stress test in the past which prompted CABG x3v (VALERIO-LAD, SVG to left CX, and LAD diagonal). * She does follow with Dr. Betancourt pending consult [facility] cardiology if needed during this stay * --Recent dobutamine stress echocardiogram on 08/03/2020 negative for myocardial ischemia at 84% of the maximum predicted heart rate. No dobutamine induced chest pain, EKG changes. Baseline echocardiogram notes normal LV systolic function and mild LVH * She is not on JESSICA/ARB therapy at this time secondary to her chronic kidney disease * She denies any chest pain and EKGs are similar to previous * Regular rate and rhythm on examination however a murmur was heard as documented in the physical examination which is likely due to her anemia and will continue to monitor. * Continue recently increased metoprolol succinate 150 mg by mouth twice daily * Continue usual isosorbide 90 mg daily, hydralazine 75 mg three times daily, atorvastatin 40 mg at bedtime and omega-3 * Bumex on hold for volume depletion/diarrhea losses and on IVF as above. * --> Monitor volume status closely and resume when appropriate * Aspirin to be resumed by primary service when stable which we have done today after discussion with primary * EKG with chest pain, none reported * Continue to monitor (4) Hyperlipidemia: * Continue atorvastatin 40 mg as above (5) DVT (deep venous thrombosis): * Diagnosed with a right lower extremity DVT in March 2020 (report showed acute nonocclusive DVT in RT space CF VC and pop V, femoral vein thrombus is occlusive, tibials were not well visualized, no evidence of DVT in the left lower extremity) * Was placed on Eliquis at that time 5mg BID * She has had her Eliquis held for the past 5 prior to surgery along with her aspirin 81 mg --she has been on this for approximately 6 months * Repeat ultrasound prior to surgery indicated a nonocclusive thrombus within her right femoral vein and no definitive popliteal thrombus visualized * SCDs, Lovenox 40 mg for DVT prophylaxis from surgery however after discussion this morning we have discontinued Lovenox and resumed her Eliquis 5 mg twice daily and aspirin 81 mg daily (6) Type 2 DM with CKD stage 3 and hypertension: * Actually with stage IV CKD, diabetes and hypertension. Last A1c 5.7 ==> repeat 5.6 * Maintained on insulin glargine 60 units at bedtime with sliding scale coverage at baseline * 30u tonight for hypoglycemia on AM labs and will utilize SSI. Increase evening when taking more PO (on full liquids starting today) * Continue to monitor (7) CKD (chronic kidney disease), stage IV: * Actually CKD stage IV as above. Follows locally with Dr. Butler. Updated Dr. Butler of hospitalization and vit d/calcium and can touch base if needed (we have resumed her vitamin D supplementation and would continue that at discharge) * Creatinine 1.97 pre-op (had been 2.15 Jun 2020) * Suspect some of his worsening of her kidney disease related to ongoing anemia which could possibly improve with treatment. IV Venofer as well. * Bumex continues to remain on hold due to hypovolemia and on fluids as above * BMP with creatinine improved to 1.73 on a.m. labs * Continue to monitor BMP --> Of note on CT abdomen and pelvis July 05, 2020 there is a 2.2 cm indeterminate lesion in the interpolar left kidney. Although this could represent a complex cyst, renal neoplasm was not excluded and will need follow- up in correlation with a contrast-enhanced renal protocol MRI for further assessment (8) Malignant neoplasm of upper-outer quadrant of right breast in female, estrogen receptor positive: * She was diagnosed with breast cancer in 2019, status post lumpectomy and radiation. She states that she did not receive any chemotherapy as she was told that given her age she would be unlikely to tolerate this - follows locally with Dr. Hernandez * She states repeat mammograms have indicated no further recurrence or other suspicious areas however it is noted that CT chest done for staging colon cancer does note nodules in the right of undetermined significance however were noted to be of little significance. Would recommend close follow-up with Dr. Hernandez at discharge which she states she has an appointment in the upcoming week or 2 and will need follow-up on pathology from current hospitalization * Maintained on tamoxifen which has been continued * No acute needs (9) Osteoporosis: * Weekly Fosamax last dose was last week. * no acute needs (10) Vitamin D deficiency: * Initially reports in Dr. Butler's note from outpatient noting patient was to hold her vitamin D for hypercalcemia, likely secondary to cancer as above . PTH greater than 200 * Her calcium on a.m. labs was 6.9 with an albumin of 2.5 and patient was given 1 g of IV calcium. Her vitamin D level in the past also continue to be low. * Calcium corrected 8.5 today and will continue with her oral vitamin D supplementation which continued at discharge * Continue to monitor on a.m. labs and will recommend following up with Dr. Butler at discharge to further address this (11) Hypocalcemia: * Calcium 6.9 as above and given 1 g IV calcium gluconate 08/27 continue to monitor on a.m. labs * Ca 7.3 with albumin 2.5 -- corrected 8.5 * Vit D supplementation as above (12) Hyperparathyroidism: * Last PTH greater than 200 as above. History of vitamin deficiency however her oral supplementation was stopped per nephrology's outpatient notes due to history of hypercalcemia however review does indicate that she is still low vitamin D and now with hypocalcemia and will resume vitamin D supplementation at this time * Continue to monitor a.m. labs and would recommend she follow-up with nephrology on discharge (13) DVT prophylaxis: * Eliquis held preoperatively for 5 days and continues to be held postoperatively as above for history of fairly recent DVT in March 2020 * Continues with SCDs, * Lovenox SQ as above discontinued and started back on aspirin and Eliquis as above Dispo: Continued inpatient stay Thank you for allowing the hospitalist group to participate in the care of Ms. Unger. Hospitalist group will follow. Admission and Anticipated Discharge Date Admission Date: August 26, 2020 Supervising Physician Co-Signing Physician Notes PA Supervision Note: I did not personally see or examine the patient today, but I verified all anthony points of RICA Reyes's assessment and plan with the following exceptions/additions: None Subjective Patient seen this afternoon. Doing better today. Pain decreased. Lots of gas. Less diarrhea in both amount and frequency. Jacques removed this morning and has voided since that time. No further emesis or nausea reported. Had her diet advanced to full liquid today and tolerated well but notes she got 3 trays in 3 hours and not hungry at this time. Low blood sugar this morning but improved. She states she typically has an evening snack to avoid this at home and keeps OJ at bedside in case she wakes up feeling shaky. Discussed we will order this tonight and decrease her evening insulin and monitor in AM/adjust as needed. Discussed resuming her Eliquis and aspirin today per discussion with general surgery and discontinued lovenox, Swelling in LE at baseline however nursing told patient she thought looked like she had edema this morning but she notes not only the DVT in that leg prior but also saphenous vein harvesting for her CABG and chronically had worsening swelling in that leg. Less short of breath than days past and got dose of Venofer this morning and has been working with therapy. Was told by surgery her body will rebound on it's own. Continues to utilize incentive spirometer. No further temps. No fevers, chills, chest pain, dysuria at this time. Review of Systems Review of Systems: All systems reviewed & are unremarkable except as noted in HPI & below Physical Exam Physical Exam: Patient is well developed, Resting comfortably in bed at this time. General pallor improved. HEENT: head atraumatic, normocephalic, trachea midline without deviation, moist mm Resp: CTAB, no w/c/r. diminished breath sounds in the bases Cardiac: RRR, no m/r/g. slight edema R>L, non-pitting, calves non-tender, no erythema Abd: +BS, soft, tender to palpation around incisions, minimal distension(less then day before). surgical incision c/d/i . LÁZARO with scan 20cc serosanginous drainage MSK: moves all extremities, strength 5/5 throughout Skin: warm , moist : No Jacques catheter Psych: AOx3 Neuro: no focal deficits Results & Data Results & Data ([facility]) Vital Signs (Past 12 Hours) Vital Signs Temp Pulse Resp BP Pulse Ox 08/29/20 07:42 37 C 75 16 156/57 H 98 08/28/20 23:01 37.5 C 70 18 136/72 98 Laboratory Results 08/29/20 08/29/20 08/29/20 Range/Units 08:49 08:25 08:24 WBC (4.8-10.8) K/uL RBC (4.2-5.4) M/uL Hgb (12.0-16.0) g/dL Hct (37-47) % MCV (80-100) fL MCH (25-34) pg MCHC (32-36) g/dL RDW Std Deviation (36.4-46.3) fL RDW Coeff of Kirsty (11.5-14.5) % Plt Count (130-400) K/uL MPV (7.4-10.4) fL Immature Gran % (Auto) % Neut % (Auto) % Lymph % (Auto) % [place] % (Auto) % Eos % (Auto) % Baso % (Auto) % Neut # (Auto) (1.4-6.5) K/uL Lymph # (Auto) (1.2-3.4) K/uL [place] # (Auto) (0.11-0.59) K/uL Eos # (Auto) (0-0.5) K/uL Baso # (Auto) (0-0.2) K/uL Immature Gran # (Auto) (0.00-0.02) K/uL RBC Morphology Sodium (136-145) mmol/L Potassium (3.5-5.1) mmol/L Chloride (98-107) mmol/L Carbon Dioxide (21-32) mmol/L Anion Gap (3-11) BUN (7-18) mg/dl Creatinine (0.6-1.2) mg/dl Est Cr Clr Drug Dosing ml/min Est GFR ( Amer) Est GFR (Non-Af Amer) BUN/Creatinine Ratio (10-20) Glucose (70-99) mg/dl POC Glucose 84 63 L* 65 L* (70-99) mg/dl Calcium (8.5-10.1) mg/dl Magnesium (1.8-2.4) mg/dl Total Bilirubin (0.2-1) mg/dl Direct Bilirubin (0-0.2) mg/dl AST (15-37) U/L ALT (12-78) U/L Alkaline Phosphatase (45-117) U/L Total Protein (6.4-8.2) gm/dl Albumin (3.4-5.0) gm/dl Urine Color Urine Appearance (Clear) Urine pH (4.5-7.5) Ur Specific [place] (1.000-1.030) Urine Protein (Negative) Urine Glucose (UA) (Negative) Urine Ketones (Negative) Urine Blood (Negative) Urine Nitrite (Negative) Urine Bilirubin (Negative) Urine Urobilinogen (Negative) Ur Leukocyte Esterase (Negative) Urine WBC (Auto) (0-5) /hpf Urine RBC (Auto) (0-4) /hpf U Hyaline Cast (Auto) (0-5) /lpf U Epithel Cells (Auto) (0-5) /lpf Urine Bacteria (Auto) (Negative) Stl C. diff Tox B Gene (Neg) 08/29/20 08/29/20 08/29/20 Range/Units 06:40 05:52 05:52 WBC 5.60 (4.8-10.8) K/uL RBC 2.18 L (4.2-5.4) M/uL Hgb 7.2 L (12.0-16.0) g/dL Hct 22.1 L (37-47) % MCV 101.4 H (80-100) fL MCH 33.0 (25-34) pg MCHC 32.6 (32-36) g/dL RDW Std Deviation 52.7 H (36.4-46.3) fL RDW Coeff of Kirsty 14.2 (11.5-14.5) % Plt Count 165 (130-400) K/uL MPV 9.0 (7.4-10.4) fL Immature Gran % (Auto) 0.2 % Neut % (Auto) 76.5 % Lymph % (Auto) 9.6 % [place] % (Auto) 11.4 % Eos % (Auto) 2.1 % Baso % (Auto) 0.2 % Neut # (Auto) 4.28 (1.4-6.5) K/uL Lymph # (Auto) 0.54 L (1.2-3.4) K/uL [place] # (Auto) 0.64 H (0.11-0.59) K/uL Eos # (Auto) 0.12 (0-0.5) K/uL Baso # (Auto) 0.01 (0-0.2) K/uL Immature Gran # (Auto) 0.01 (0.00-0.02) K/uL RBC Morphology Unremarkable Sodium 140 (136-145) mmol/L Potassium 4.5 (3.5-5.1) mmol/L Chloride 116 H (98-107) mmol/L Carbon Dioxide 18 L (21-32) mmol/L Anion Gap 6.0 (3-11) BUN 27 H (7-18) mg/dl Creatinine 1.73 H (0.6-1.2) mg/dl Est Cr Clr Drug Dosing 30.5 ml/min Est GFR ( Amer) 32.0 Est GFR (Non-Af Amer) 27.6 BUN/Creatinine Ratio 15.8 (10-20) Glucose 58 L (70-99) mg/dl POC Glucose (70-99) mg/dl Calcium 7.0 L (8.5-10.1) mg/dl Magnesium 2.2 (1.8-2.4) mg/dl Total Bilirubin 0.8 (0.2-1) mg/dl Direct Bilirubin 0.2 (0-0.2) mg/dl AST 74 H (15-37) U/L ALT 16 (12-78) U/L Alkaline Phosphatase 40 L (45-117) U/L Total Protein 5.8 L (6.4-8.2) gm/dl Albumin 2.3 L (3.4-5.0) gm/dl Urine Color Yellow Urine Appearance Clear (Clear) Urine pH 5.0 (4.5-7.5) Ur Specific [place] 1.021 (1.000-1.030) Urine Protein Trace H (Negative) Urine Glucose (UA) Negative (Negative) Urine Ketones Negative (Negative) Urine Blood Negative (Negative) Urine Nitrite Negative (Negative) Urine Bilirubin Negative (Negative) Urine Urobilinogen Negative (Negative) Ur Leukocyte Esterase Negative (Negative) Urine WBC (Auto) 1-5 (0-5) /hpf Urine RBC (Auto) 5-10 H (0-4) /hpf U Hyaline Cast (Auto) 5-10 H (0-5) /lpf U Epithel Cells (Auto) 10-20 H (0-5) /lpf Urine Bacteria (Auto) Negative (Negative) Stl C. diff Tox B Gene (Neg) 08/28/20 08/28/20 08/28/20 Range/Units 20:30 17:15 17:15 WBC (4.8-10.8) K/uL RBC (4.2-5.4) M/uL Hgb (12.0-16.0) g/dL Hct (37-47) % MCV (80-100) fL MCH (25-34) pg MCHC (32-36) g/dL RDW Std Deviation (36.4-46.3) fL RDW Coeff of Kirsty (11.5-14.5) % Plt Count (130-400) K/uL MPV (7.4-10.4) fL Immature Gran % (Auto) % Neut % (Auto) % Lymph % (Auto) % [place] % (Auto) % Eos % (Auto) % Baso % (Auto) % Neut # (Auto) (1.4-6.5) K/uL Lymph # (Auto) (1.2-3.4) K/uL [place] # (Auto) (0.11-0.59) K/uL Eos # (Auto) (0-0.5) K/uL Baso # (Auto) (0-0.2) K/uL Immature Gran # (Auto) (0.00-0.02) K/uL RBC Morphology Sodium (136-145) mmol/L Potassium (3.5-5.1) mmol/L Chloride (98-107) mmol/L Carbon Dioxide (21-32) mmol/L Anion Gap (3-11) BUN (7-18) mg/dl Creatinine (0.6-1.2) mg/dl Est Cr Clr Drug Dosing ml/min Est GFR ( Amer) Est GFR (Non-Af Amer) BUN/Creatinine Ratio (10-20) Glucose (70-99) mg/dl POC Glucose 161 H 130 H (70-99) mg/dl Calcium (8.5-10.1) mg/dl Magnesium (1.8-2.4) mg/dl Total Bilirubin (0.2-1) mg/dl Direct Bilirubin (0-0.2) mg/dl AST (15-37) U/L ALT (12-78) U/L Alkaline Phosphatase (45-117) U/L Total Protein (6.4-8.2) gm/dl Albumin (3.4-5.0) gm/dl Urine Color Urine Appearance (Clear) Urine pH (4.5-7.5) Ur Specific [place] (1.000-1.030) Urine Protein (Negative) Urine Glucose (UA) (Negative) Urine Ketones (Negative) Urine Blood (Negative) Urine Nitrite (Negative) Urine Bilirubin (Negative) Urine Urobilinogen (Negative) Ur Leukocyte Esterase (Negative) Urine WBC (Auto) (0-5) /hpf Urine RBC (Auto) (0-4) /hpf U Hyaline Cast (Auto) (0-5) /lpf U Epithel Cells (Auto) (0-5) /lpf Urine Bacteria (Auto) (Negative) Stl C. diff Tox B Gene Negative Cdiff Gene (Neg) 08/28/20 08/28/20 08/28/20 Range/Units 16:10 12:28 06:22 WBC (4.8-10.8) K/uL RBC (4.2-5.4) M/uL Hgb (12.0-16.0) g/dL Hct (37-47) % MCV (80-100) fL MCH (25-34) pg MCHC (32-36) g/dL RDW Std Deviation (36.4-46.3) fL RDW Coeff of Ikrsty (11.5-14.5) % Plt Count (130-400) K/uL MPV (7.4-10.4) fL Immature Gran % (Auto) % Neut % (Auto) % Lymph % (Auto) % [place] % (Auto) % Eos % (Auto) % Baso % (Auto) % Neut # (Auto) (1.4-6.5) K/uL Lymph # (Auto) (1.2-3.4) K/uL [place] # (Auto) (0.11-0.59) K/uL Eos # (Auto) (0-0.5) K/uL Baso # (Auto) (0-0.2) K/uL Immature Gran # (Auto) (0.00-0.02) K/uL RBC Morphology Sodium (136-145) mmol/L Potassium (3.5-5.1) mmol/L Chloride (98-107) mmol/L Carbon Dioxide (21-32) mmol/L Anion Gap (3-11) BUN (7-18) mg/dl Creatinine (0.6-1.2) mg/dl Est Cr Clr Drug Dosing ml/min Est GFR ( Amer) Est GFR (Non-Af Amer) BUN/Creatinine Ratio (10-20) Glucose (70-99) mg/dl POC Glucose 123 H (70-99) mg/dl Calcium (8.5-10.1) mg/dl Magnesium 2.3 (1.8-2.4) mg/dl Total Bilirubin (0.2-1) mg/dl Direct Bilirubin (0-0.2) mg/dl AST (15-37) U/L ALT (12-78) U/L Alkaline Phosphatase (45-117) U/L Total Protein (6.4-8.2) gm/dl Albumin (3.4-5.0) gm/dl Urine Color Yellow Urine Appearance Clear (Clear) Urine pH 5.0 (4.5-7.5) Ur Specific [place] 1.015 (1.000-1.030) Urine Protein Negative (Negative) Urine Glucose (UA) Negative (Negative) Urine Ketones Negative (Negative) Urine Blood Negative (Negative) Urine Nitrite Negative (Negative) Urine Bilirubin Negative (Negative) Urine Urobilinogen Negative (Negative) Ur Leukocyte Esterase Negative (Negative) Urine WBC (Auto) (0-5) /hpf Urine RBC (Auto) (0-4) /hpf U Hyaline Cast (Auto) (0-5) /lpf U Epithel Cells (Auto) (0-5) /lpf Urine Bacteria (Auto) (Negative) Stl C. diff Tox B Gene (Neg) PG Care Time/CCT Total # of Minutes Spent Total Time Spent with Patient: Total time spent is greater than 50% in coordination of care (as documented) at patient's floor/unit and/or counseling patient: Coding Level of Care Code 40680 Subseq Hosp Care Lvl 3 Diagnoses S/P right colectomy Z90.49 Status post hysteroscopy Z98.890 CAD (coronary artery disease) I25.10 Associated angina: without angina Coronary Disease-Associated Artery/Lesion type: [place] artery [place] vs. transplanted heart: [place] heart Hyperlipidemia E78.5 Hyperlipidemia type: unspecified DVT (deep venous thrombosis) I82.511 Affected thrombotic vein of extremity: femoral Chronicity: chronic DVT location: lower extremity Laterality: right Type 2 DM with CKD stage 3 and hypertension E11.22; I12.9; N18.3 CKD (chronic kidney disease), stage IV N18.4 Malignant neoplasm of upper-outer quadrant of right breast in female, estrogen receptor positive C50.411; Z17.0 Osteoporosis M81.0 Osteoporosis type: unspecified Presence of current pathological fracture: unspecified Vitamin D deficiency E55.9 Hypocalcemia E83.51 Hyperparathyroidism E21.3 DVT prophylaxis Z29.9 (1) DVT (deep venous thrombosis) Affected thrombotic vein of extremity: femoral Chronicity: chronic DVT location: lower extremity Laterality: right Qualified Code(s): I82.511 - Chronic embolism and thrombosis of right femoral vein (2) Osteoporosis Osteoporosis type: unspecified Presence of current pathological fracture: unspecified Qualified Code(s): M81.0 - Age-related osteoporosis without current pathological fracture (3) CAD (coronary artery disease) Associated angina: without angina Coronary Disease-Associated Artery/Lesion type: [place] artery [place] vs. transplanted heart: [place] heart Qualified Code(s): I25.10 - Atherosclerotic heart disease of [place] coronary artery without angina pectoris (4) Hyperlipidemia Hyperlipidemia type: unspecified Qualified Code(s): E78.5 - Hyperlipidemia, unspecified
[2020-08-29] MEDS ORDERED: D5W AND LACTATED RINGERS 1,000 ML IV SCH (09:45)
[2020-08-29] MEDS ORDERED: IRON SUCROSE 200 MG in 0.9 % SODIUM CHLORIDE 100 ML IV ONE (10:00)
[2020-08-29] MEDS: HYDROmorphone INJ 1 MG/ML SYRINGE IV PRN (10:01)
[2020-08-29] MEDS: DICLOFENAC SOD 1% GEL 100 GM TUBE EXT PRN ×2 (10:37→20:38)
[2020-08-29] MEDS: SODIUM BICARBONATE 8.4% 50 MEQ in DEXTROSE 5% 1,000 ML IV SCH ×2 (11:35→21:43)
[2020-08-29] MEDS: ONDANSETRON INJ 2 MG/ML 2 ML VIAL IV PRN (16:51)
[2020-08-29] MEDS ORDERED: PHARMACY GLYCEMIC MGMT CONSULT PRN (17:19)
[2020-08-29 17:29] LABS: Hematocrit (blood only) 23.6 % (37-47); Hemoglobin 7.8 g/dL (12.0-16.0)
[2020-08-29 17:30] LABS: BUN Creatinine Ratio 15.1 (10-20); Calcium 7.8 mg/dl (8.5-10.1); Creatinine Clr Calc Pharmacy 32.5 ml/min; Est GFR (African American) 34.6; Est GFR (Non-African American) 29.9; Potassium 4.5 mmol/L (3.5-5.1)
[2020-08-29] MEDS: ATORVASTATIN 40 MG TAB PO SCH (20:22)
[2020-08-29] MEDS: TAMOXIFEN CITRATE 10 MG TABLET PO SCH (20:24)
[2020-08-29] MEDS: OMEGA-3 (PURIFIED FISH OIL) 1 GM CAP PO SCH (20:25)
[2020-08-29] MEDS: APIXABAN 5 MG TABLET PO SCH (20:26)
[2020-08-29] MEDS: ASPIRIN 81 MG ECTAB PO SCH (20:26)
[2020-08-29] MEDS ORDERED: INSULIN GLARGINE SOLOSTAR 100 UNITS/ML 3 ML PEN SC SCH (21:00)
[2020-08-29] MEDS: HYDROmorphone INJ 0.5 MG/0.5 ML SYR IV PRN (23:01)
[2020-08-30] MEDS: ACETAMINOPHEN 1,000 MG/100 ML VIAL IV SCH (02:59)
[2020-08-30] MEDS: SODIUM BICARBONATE 8.4% 50 MEQ in DEXTROSE 5% 1,000 ML IV SCH (05:59)
[2020-08-30 07:35] LABS: Basophils # (auto) 0.02 K/uL (0-0.2); Basophils % (auto) 0.4 %; Eosinophils # (auto) 0.17 K/uL (0-0.5); Eosinophils % (auto) 3.5 %; Hematocrit (blood only) 23.1 % (37-47); Hemoglobin 7.6 g/dL (12.0-16.0); Immature Granulocytes # (auto) 0.01 K/uL (0.00-0.02); Immature Granulocytes % (auto) 0.2 %; Lymphocytes # (auto) 0.62 K/uL (1.2-3.4); Lymphocytes % (auto) 12.8 %; Mean Corpuscular Hemoglobin 33.2 pg (25-34); Mean Corpuscular Hgb Conc 32.9 g/dL (32-36); Mean Corpuscular Volume 100.9 fL (80-100); Mean Platelet Volume 9.4 fL (7.4-10.4); Monocytes # (auto) 0.53 K/uL (0.11-0.59); Neutrophils # (auto) 3.49 K/uL (1.4-6.5); Neutrophils % (auto) 72.1 %; Platelet Count 174 K/uL (130-400); RDW Coefficient of Variation 14.4 % (11.5-14.5); RDW Standard Deviation 52.8 fL (36.4-46.3); Red Blood Count 2.29 M/uL (4.2-5.4); White Blood Count 4.84 K/uL (4.8-10.8)
[2020-08-30 07:57] LABS: RBC Morphology Unremarkable
[2020-08-30 08:11] LABS: BUN Creatinine Ratio 15.1 (10-20); Calcium 7.9 mg/dl (8.5-10.1); Creatinine Clr Calc Pharmacy 32.9 ml/min; Est GFR (African American) 35.2; Est GFR (Non-African American) 30.3; Potassium 4.2 mmol/L (3.5-5.1)
[2020-08-30] MEDS: CHOLECALCIFEROL 1,000 UNITS 25 MCG TAB PO SCH (08:40)
[2020-08-30] MEDS: APIXABAN 5 MG TABLET PO SCH ×2 (08:40→21:52)
[2020-08-30] MEDS: hydrALAZINE HCL 25 MG TAB PO SCH ×3 (08:40→21:56)
[2020-08-30] MEDS: MAGNESIUM OXIDE 400 MG TAB PO SCH ×2 (08:41→21:49)
[2020-08-30] MEDS: hydrALAZINE TAB 50 MG TAB PO SCH ×3 (08:41→21:55)
[2020-08-30] MEDS: ISOSORBIDE MONO EXTENDED REL 30 MG TABCR PO SCH (08:41)
[2020-08-30] MEDS: ISOSORBIDE MONO EXTENDED REL 60 MG TABCR PO SCH (08:41)
[2020-08-30] MEDS: METOPROLOL SUCC 50MG EXT REL TAB PO SCH ×2 (08:41→21:53)
[2020-08-30] MEDS: INSULIN ASPART 100 UNITS/ML 3 ML PEN SC SCH ×4 (08:44→21:56)
--- NOTE | 2020-08-30 09:03 | Surgery Progress Note ---
Date of Service August 30, 2020 Assessment & Plan (1) S/P right colectomy: I am pleased with her progress at this point. Her pathology is still pending. We can DC her IV fluids and I will advance her diet to see if this helps solidify her stools as well as improve her nausea. I will also add Questran to her regimen. We can remove the LÁZARO drain. Hopefully we can solidify her bowel movements so she can move around more. Anticipate discharge in the next 24 to 48 hours. Admission and Anticipated Discharge Date Admission Date: August 26, 2020 Subjective Patient feeling a little better today. No nausea or vomiting as of now. She continues to have very loose bowel movements which are hard for her to control. Adequate pain control. Physical Exam Physical Exam: Alert. No acute distress Abdomen is soft. Her incisions are all clean dry intact healing nicely with no sign of infection. Her LÁZARO drain is serous Results & Data ([facility]) Vital Signs (Past 12 Hours) Vital Signs Temp Pulse Resp BP Pulse Ox 08/30/20 08:14 37.3 C 67 16 165/66 H 97 08/29/20 22:39 37.0 C 72 18 168/70 H 95 PG Care Time/CCT Total # of Minutes Spent Total Time Spent with Patient: Total time spent is greater than 50% in coordination of care (as documented) at patient's floor/unit and/or counseling patient: Coding Level of Care Code None Diagnoses S/P right colectomy Z90.49
[2020-08-30] MEDS: CHOLESTYRAMINE LIGHT 4 GM PKT PO SCH ×3 (10:17→21:49)
[2020-08-30] MEDS: DICLOFENAC SOD 1% GEL 100 GM TUBE EXT PRN ×2 (11:28→22:01)
--- NOTE | 2020-08-30 12:57 | Pharmacy Report ---
Pharmacy Glycemic Short Note 2 - Date of Service August 30, 2020 - Glycemic Short BSG Results (Last 24 hours): 08/29/20 08/29/20 08/29/20 17:06 17:39 20:31 Glucose 124 H POC Glucose 123 H 141 H 08/30/20 08/30/20 08/30/20 06:53 07:38 11:35 Glucose 74 POC Glucose 85 106 H OUTPATIENT ANTIDIABETIC REGIMEN: * Lantus 60 units SC HS * Novolog SC TIDM (up to 75 units/day) * HbA1c: 5.6% (08/28/20) ASSESSMENT: * IRAIS is a 80 year old female POD #4 s/p right colectomy * Pharmacy consulted for glycemic management on 08/29/20 * BSGs have been well controlled, 84, 101, 123, and 141 mg/dL yesterday * Received 32 units of insulin (30 units of Lantus and 2 units of Novolog) * Diet advanced today from full liquid to T2DM - will set Lantus scale to allow for higher dose this evening PLAN FOR INPATIENT GLYCEMIC CONTROL: * Hold outpatient oral diabetes medications * Basal insulin * Lantus 25-35 units SQ HS (see EHR for details) * Bolus insulin * NovoLog per scale ACHS or Q6hrs while NPO * Goal Range: Low 90 mg/dL - High 140 mg/dL * Correction Factor: 35 mg/dL/unit * Nutritional / Prandial insulin per carb ratio of 1 unit per 10 grams CHO consumed PLAN FOR DISCHARGE: * HbA1c of 5.6% suggests excellent outpatient glycemic control, however I anticipate that patient's insulin needs will change significantly now that she is s/p right colectomy * Will follow inpatient insulin needs and recommend changes as appropriate
[2020-08-30] MEDS: HYDROmorphone INJ 0.5 MG/0.5 ML SYR IV PRN (16:25)
[2020-08-30] MEDS: ONDANSETRON INJ 2 MG/ML 2 ML VIAL IV PRN (20:29)
[2020-08-30] MEDS: OMEGA-3 (PURIFIED FISH OIL) 1 GM CAP PO SCH (21:50)
[2020-08-30] MEDS: ATORVASTATIN 40 MG TAB PO SCH (21:51)
[2020-08-30] MEDS: ASPIRIN 81 MG ECTAB PO SCH (21:52)
[2020-08-30] MEDS: INSULIN GLARGINE SOLOSTAR 100 UNITS/ML 3 ML PEN SC SCH (22:01)
[2020-08-30] MEDS: TAMOXIFEN CITRATE 10 MG TABLET PO SCH (22:11)
[2020-08-30] MEDS: HYDROmorphone INJ 1 MG/ML SYRINGE IV PRN (22:59)
--- NOTE | 2020-08-31 06:49 | Hospitalist Progress Note ---
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 Subsequently seen in June 2020 by hematology oncology where it was found that her hemoglobin had dropped from 12.3--> 9.8 which prompted an anemia work-up with GI which revealed a colon mass. Note, CT abdomen pelvis and chest 2020 reported no evidence of metastatic disease in the chest, abdomen, or pelvis. Imaging at that time showed 2 polypoid lesions suggested in the right colon neoplasm being the diagnosis of exclusion. Also noted endometrial thickening concerning for endometrial neoplasm as well as a 2.2 cm indeterminate lesion in the interpolar left kidney. Presented for hemicolectomy with Dr. Quiroga with, and hysteroscopy with Dr. Calderon for endometrial thickening seen on imaging POD#5 s/p : * Hysteroscopy First Procedure(Not Applicable) - Cathy Calderon, * Dilation and Curettage, Possible Polypectomy(Not Applicable) - Cathy Calderon, DO * Laparoscopic Extended Hemicolectomy, Extensive enterolysis with Dr. Quiroga She did have a history of open catrachita and had extensive adhesions per operative report. Pathology pending from both No further n/v and patient advanced to full liquid diet today Stopped IVF No further low-grade temperatures since initiation of continued encouragement to utilize spirometer DVT Proph -->Eliquis 5 mg twice daily and aspirin 81 mg daily given history of right lower extremity DVT cancer patient with likely colon ca Pre-op h/h 10.1/30.5. However, this lab value was also drawn July 15, 2020 inpatient with colon mass which was likely causing her anemia and was found on work-up for such--She follows locally with Dr. Hernandez and states that she was found to be iron deficient and there were talks of giving her IV iron transfusions as she is unable to tolerate p.o. but that she was never set up for transfusions at that time Venofer IV on 08/28 and 08/29. -hemoglobin at 8. -will stop cholestyramine as patient is not tolerating this medication. -will add metamucil and monitor. (2) Status post hysteroscopy: * As above by Yumiko Coley * Jacques per primary team which has been discontinued today and she has voided since that time * Pathology pending (3) CAD (coronary artery disease): * Worked up for cataract surgery and had an abnormal stress test in the past which prompted CABG x3v (VALERIO-LAD, SVG to left CX, and LAD diagonal). * She does follow with Dr. Betancourt pending consult [facility] cardiology if needed during this stay * --Recent dobutamine stress echocardiogram on 08/03/2020 negative for myocardial ischemia at 84% of the maximum predicted heart rate. No dobutamine induced chest pain, EKG changes. Baseline echocardiogram notes normal LV systolic function and mild LVH * She is not on JESSICA/ARB therapy at this time secondary to her chronic kidney disease * She denies any chest pain and EKGs are similar to previous * Regular rate and rhythm on examination however a murmur was heard as documented in the physical examination which is likely due to her anemia and will continue to monitor. * Continue recently increased metoprolol succinate 150 mg by mouth twice daily * Continue usual isosorbide 90 mg daily, hydralazine 75 mg three times daily, atorvastatin 40 mg at bedtime and omega-3 * Bumex on hold for volume depletion/diarrhea losses and on IVF as above. * --> Monitor volume status closely and resume when appropriate * Aspirin resumed * EKG with chest pain, none reported * Continue to monitor (4) Hyperlipidemia: * Continue atorvastatin 40 mg as above (5) DVT (deep venous thrombosis): * Diagnosed with a right lower extremity DVT in March 2020 (report showed acute nonocclusive DVT in RT space CF VC and pop V, femoral vein thrombus is occlusive, tibials were not well visualized, no evidence of DVT in the left lower extremity) * Was placed on Eliquis at that time 5mg BID * She has had her Eliquis held for the past 5 prior to surgery along with her aspirin 81 mg --she has been on this for approximately 6 months * Repeat ultrasound prior to surgery indicated a nonocclusive thrombus within her right femoral vein and no definitive popliteal thrombus visualized * SCDs, resumed her Eliquis 5 mg twice daily and aspirin 81 mg daily (6) Type 2 DM with CKD stage 3 and hypertension: * Actually with stage IV CKD, diabetes and hypertension. Last A1c 5.7 ==> repeat 5.6 * Maintained on insulin glargine 60 units at bedtime with sliding scale coverage at baseline * 30u tonight for hypoglycemia on AM labs and will utilize SSI. Increase evening when taking more PO (on full liquids starting today) * Continue to monitor (7) CKD (chronic kidney disease), stage IV: * Actually CKD stage IV as above. Follows locally with Dr. Butler. Updated Dr. Butler of hospitalization and vit d/calcium and can touch base if needed (we have resumed her vitamin D supplementation and would continue that at discharge) * Creatinine 1.97 pre-op (had been 2.15 Jun 2020) * Suspect some of his worsening of her kidney disease related to ongoing anemia which could possibly improve with treatment. IV Venofer as well. * Bumex continues to remain on hold due to hypovolemia and on fluids as above * BMP with creatinine improved to 1.73 on a.m. labs * Continue to monitor BMP --> Of note on CT abdomen and pelvis July 05, 2020 there is a 2.2 cm indeterminate lesion in the interpolar left kidney. Although this could represent a complex cyst, renal neoplasm was not excluded and will need follow- up in correlation with a contrast-enhanced renal protocol MRI for further assessment (8) Malignant neoplasm of upper-outer quadrant of right breast in female, estrogen receptor positive: * She was diagnosed with breast cancer in 2019, status post lumpectomy and radiation. She states that she did not receive any chemotherapy as she was told that given her age she would be unlikely to tolerate this - follows locally with Dr. Hernandez * She states repeat mammograms have indicated no further recurrence or other suspicious areas however it is noted that CT chest done for staging colon cancer does note nodules in the right of undetermined significance however were noted to be of little significance. Would recommend close follow-up with Dr. Hernandez at discharge which she states she has an appointment in the upcoming week or 2 and will need follow-up on pathology from current hospitalization * Maintained on tamoxifen which has been continued * No acute needs (9) Osteoporosis: * Weekly Fosamax last dose was last week. * no acute needs (10) Vitamin D deficiency: * Initially reports in Dr. Butler's note from outpatient noting patient was to hold her vitamin D for hypercalcemia, likely secondary to cancer as above . PTH greater than 200 * Her calcium on a.m. labs was 6.9 with an albumin of 2.5 and patient was given 1 g of IV calcium. Her vitamin D level in the past also continue to be low. * Calcium corrected 8.5 today and will continue with her oral vitamin D supplementation which continued at discharge * Continue to monitor on a.m. labs and will recommend following up with Dr. Butler at discharge to further address this (11) Hypocalcemia: * Calcium 6.9 as above and given 1 g IV calcium gluconate 08/27 continue to monitor on a.m. labs * Ca 7.3 with albumin 2.5 -- corrected 8.5 * Vit D supplementation as above (12) Hyperparathyroidism: * Last PTH greater than 200 as above. History of vitamin deficiency however her oral supplementation was stopped per nephrology's outpatient notes due to history of hypercalcemia however review does indicate that she is still low vitamin D and now with hypocalcemia and will resume vitamin D supplementation at this time * Continue to monitor a.m. labs and would recommend she follow-up with nephrology on discharge (13) DVT prophylaxis: * Eliquis held preoperatively for 5 days and continues to be held postoperatively as above for history of fairly recent DVT in March 2020 * Continues with SCDs, * Lovenox SQ as above discontinued and started back on aspirin and Eliquis as above Dispo: Continued inpatient stay will sign off. Admission and Anticipated Discharge Date Admission Date: August 26, 2020 Subjective Patient reports feeling well. He has no new complaints at this time. Patient is refusing questran. Review of Systems Review of Systems: REVIEW OF SYSTEMS: Constitutional: No fever, sweats or chills Eyes: No diplopia, no worsening or blurred vision ENT: normal hearing, no trouble swallowing Respiratory: (+) seasonal bronchitis, No cough, sputum, dyspnea at rest or on exertion Cardiovascular: No chest pain, tightness or palpitations Abdomen: No pain, nausea, vomiting, diarrhea or constipation Musculoskeletal: (+) back pain, (-) calf pain, swelling Neurologic: No weakness, numbness/tingling, or balance problems Psychiatric: No anxiety or depression Skin: No rash or itch Physical Exam Physical Exam: Patient is well developed, Resting comfortably in bed at this time. HEENT: head atraumatic, normocephalic, trachea midline without deviation, moist mm Resp: NOT USING ACCESORY MUSCLES TO BREATH Cardiac: telemonitor shows normal sinus. Abd: +BS, minimal distension(less then day before). surgical incision c/d/i MSK: moves all extremities, strength 5/5 throughout Skin: warm , moist : No Jacques catheter Psych: AOx3 Neuro: no focal deficits Results & Data Results & Data ([facility]) Vital Signs (Past 12 Hours) Vital Signs Temp Pulse Resp BP Pulse Ox 08/30/20 22:44 37.1 C 78 18 149/58 H 95 PG Care Time/CCT Total # of Minutes Spent Total Time Spent with Patient: Total time spent is greater than 50% in coordination of care (as documented) at patient's floor/unit and/or counseling patient: Coding Level of Care Code 47156 Subseq Hosp Care Lvl 3 Diagnoses S/P right colectomy Z90.49 Status post hysteroscopy Z98.890 CAD (coronary artery disease) I25.10 Associated angina: without angina Coronary Disease-Associated Artery/Lesion type: tanana artery [place] vs. transplanted heart: tanana heart Hyperlipidemia E78.5 Hyperlipidemia type: unspecified DVT (deep venous thrombosis) I82.511 Affected thrombotic vein of extremity: femoral Chronicity: chronic DVT location: lower extremity Laterality: right Type 2 DM with CKD stage 3 and hypertension E11.22; I12.9; N18.3 CKD (chronic kidney disease), stage IV N18.4 Malignant neoplasm of upper-outer quadrant of right breast in female, estrogen receptor positive C50.411; Z17.0 Osteoporosis M81.0 Osteoporosis type: unspecified Presence of current pathological fracture: unspecified Vitamin D deficiency E55.9 Hypocalcemia E83.51 Hyperparathyroidism E21.3 DVT prophylaxis Z29.9 Time Spent (min) 35 (1) DVT (deep venous thrombosis) Affected thrombotic vein of extremity: femoral Chronicity: chronic DVT location: lower extremity Laterality: right Qualified Code(s): I82.511 - Chronic embolism and thrombosis of right femoral vein (2) Osteoporosis Osteoporosis type: unspecified Presence of current pathological fracture: unspecified Qualified Code(s): M81.0 - Age-related osteoporosis without current pathological fracture (3) CAD (coronary artery disease) Associated angina: without angina Coronary Disease-Associated Artery/Lesion type: tanana artery [place] vs. transplanted heart: tanana heart Qualified Code(s): I25.10 - Atherosclerotic heart disease of tanana coronary artery without angina pectoris (4) Hyperlipidemia Hyperlipidemia type: unspecified Qualified Code(s): E78.5 - Hyperlipidemia, unspecified
--- NOTE | 2020-08-31 07:39 | Surgery Progress Note ---
Date of Service August 31, 2020 Assessment & Plan (1) S/P right colectomy: POD#5 Patient is doing fairly well. Had some nausea overnight she believes was related to a certain medication, but is feeling well this AM. Says her BM's have been more controlled Continue low fiber diet Will change from IV to PO prn pain medication Em drain to be removed prior to discharge Will check up on later today as above. doing better each day. not quite ready for d/c....tentatively plan d/c for tomorrow. continue diet/questran. Admission and Anticipated Discharge Date Admission Date: August 26, 2020 Subjective Patient says she is feeling pretty good this AM. She states yesterday evening she developed some nausea she believes is related to the questran. She did not v omit. She was able to tolerate a small amount of dinner and she refused her nighttime dose of the med. She tells me she thinks her BM's have been more controlled and that they are not as loose as they had been previously. Physical Exam Physical Exam: awake/alert Constitutional: no acute distress Respiratory: normal respiratory effort Gastrointestinal (Abdomen): Inspection/Auscultation: + abdomen distended (mild) and + abdominal surgical incision (c/d/i with surgical pamela in place and em drain) Percussion/Palpation: abdomen soft; abdomen nontender Results & Data ([facility]) Vital Signs (Past 12 Hours) Vital Signs Temp Pulse Resp BP Pulse Ox 08/30/20 22:44 37.1 C 78 18 149/58 H 95 PG Care Time/CCT Total # of Minutes Spent Total Time Spent with Patient: Total time spent is greater than 50% in coordination of care (as documented) at patient's floor/unit and/or counseling patient: Coding Level of Care Code None Diagnoses S/P right colectomy Z90.49
[2020-08-31] MEDS ORDERED: ACETAMINOPHEN 325 MG TAB PO PRN (08:43)
[2020-08-31] MEDS: hydrALAZINE TAB 50 MG TAB PO SCH ×3 (08:48→20:25)
[2020-08-31] MEDS: hydrALAZINE HCL 25 MG TAB PO SCH ×3 (08:48→20:27)
[2020-08-31] MEDS: METOPROLOL SUCC 50MG EXT REL TAB PO SCH ×2 (08:49→20:26)
[2020-08-31] MEDS: ISOSORBIDE MONO EXTENDED REL 30 MG TABCR PO SCH (08:50)
[2020-08-31] MEDS: APIXABAN 5 MG TABLET PO SCH ×2 (08:51→20:25)
[2020-08-31] MEDS: CHOLECALCIFEROL 1,000 UNITS 25 MCG TAB PO SCH (08:51)
[2020-08-31] MEDS: ISOSORBIDE MONO EXTENDED REL 60 MG TABCR PO SCH (08:51)
[2020-08-31] MEDS: MAGNESIUM OXIDE 400 MG TAB PO SCH ×2 (08:51→20:25)
[2020-08-31] MEDS: INSULIN ASPART 100 UNITS/ML 3 ML PEN SC SCH ×4 (08:54→20:32)
[2020-08-31] MEDS: CHOLESTYRAMINE LIGHT 4 GM PKT PO SCH ×3 (10:02→20:39)
[2020-08-31] MEDS: ONDANSETRON INJ 2 MG/ML 2 ML VIAL IV PRN (13:38)
[2020-08-31] MEDS: oxyCODONE HCL IR 5 MG TAB (IMMEDIATE RELEASE) PO PRN ×2 (17:09→22:07)
[2020-08-31 17:35] LABS: Hematocrit (blood only) 24.4 % (37-47)
[2020-08-31] MEDS: OMEGA-3 (PURIFIED FISH OIL) 1 GM CAP PO SCH (20:24)
[2020-08-31] MEDS: ATORVASTATIN 40 MG TAB PO SCH (20:26)
[2020-08-31] MEDS: ASPIRIN 81 MG ECTAB PO SCH (20:26)
[2020-08-31] MEDS: TAMOXIFEN CITRATE 10 MG TABLET PO SCH (20:27)
[2020-08-31] MEDS: INSULIN GLARGINE SOLOSTAR 100 UNITS/ML 3 ML PEN SC SCH (20:31)
[2020-08-31] MEDS: DICLOFENAC SOD 1% GEL 100 GM TUBE EXT PRN (22:07)
[2020-08-31 23:48] VITALS: O2SAT 96
[2020-09-01 01:35] LABS: Appearance Urine Cloudy (Clear); Bacteria Urine Automated 1+ (Negative); Bilirubin Urine Negative (Negative); Blood Urine Trace (Negative); Color Urine Dark Yellow; Epithelial Cell Urine Auto >30 /lpf (0-5); Glucose Urine UA Negative (Negative); Ketones Urine Trace (Negative); Leukocyte Esterase Urine 2+ (Negative); Nitrite Urine Negative (Negative); Protein Urine 1+ (Negative); Urobilinogen Urine Negative (Negative); WBC Urine Automated >30 /hpf (0-5)
[2020-09-01 06:18] LABS: Hematocrit (blood only) 25.3 % (37-47); Hemoglobin 8.1 g/dL (12.0-16.0); Mean Corpuscular Hemoglobin 32.9 pg (25-34); Mean Corpuscular Volume 102.8 fL (80-100); Mean Platelet Volume 9.6 fL (7.4-10.4); Platelet Count 199 K/uL (130-400); RDW Coefficient of Variation 14.7 % (11.5-14.5); RDW Standard Deviation 53.8 fL (36.4-46.3); Red Blood Count 2.46 M/uL (4.2-5.4); White Blood Count 3.95 K/uL (4.8-10.8)
[2020-09-01 06:52] LABS: Calcium 8.3 mg/dl (8.5-10.1); Est GFR (African American) 36.5; Est GFR (Non-African American) 31.5
[2020-09-01 08:11] VITALS: BP 165/53; PULSE 64; TEMP 98.8
[2020-09-01] MEDS: hydrALAZINE HCL 25 MG TAB PO SCH (08:42)
[2020-09-01] MEDS: METOPROLOL SUCC 50MG EXT REL TAB PO SCH (08:42)
[2020-09-01] MEDS: hydrALAZINE TAB 50 MG TAB PO SCH (08:42)
--- NOTE | 2020-09-01 08:42 | Surgery Progress Note ---
Date of Service September 01, 2020 Assessment & Plan (1) S/P right colectomy: POD#6 Patient doing well overall. pain tolerable. + bowel function. tolerating a diet. Incisions c/d/i, no signs of infection. Will plan to remove em drain today Will discuss with hospitalists any changes to home medication & f/u on UA Plan for discharge to home later today and follow up with Dr. Quiroga in clinic within 1-2 weeks as above. ok for d/c. instructions given. Admission and Anticipated Discharge Date Admission Date: August 26, 2020 Subjective Patient states she is feeling okay this AM. She reports developing nausea again after trying the Questran again yesterday and has since been refusing the medication. She did eat some dinner yesterday evening without event. She c ontinues to pass flatus and have BM's (believes her BM's have been more manageable). Had some burning with urination yesterday and a UA was sent. Otherwise she is feeling okay, just fatigued after walking for any length at a time which she says is her baseline. She does feel like she can manage well at home and is on board with potential discharge today. Physical Exam Physical Exam: awake/alert Constitutional: no acute distress Respiratory: normal respiratory effort Gastrointestinal (Abdomen): Inspection/Auscultation: + abdomen distended (mild) and + abdominal surgical incision (c/d/i with pamela in place and em in place) Percussion/Palpation: abdomen soft; abdomen nontender Results & Data ([facility]) Vital Signs (Past 12 Hours) Vital Signs Temp Pulse Resp BP Pulse Ox 09/01/20 08:08 37.1 C 64 16 165/53 H 96 08/31/20 23:45 37.5 C 69 18 158/72 H 96 PG Care Time/CCT Total # of Minutes Spent Total Time Spent with Patient: Total time spent is greater than 50% in coordination of care (as documented) at patient's floor/unit and/or counseling patient: Coding Level of Care Code None Diagnoses S/P right colectomy Z90.49
[2020-09-01] MEDS: MAGNESIUM OXIDE 400 MG TAB PO SCH (08:43)
[2020-09-01] MEDS: APIXABAN 5 MG TABLET PO SCH (08:43)
[2020-09-01] MEDS: CHOLECALCIFEROL 1,000 UNITS 25 MCG TAB PO SCH (08:43)
[2020-09-01] MEDS: ISOSORBIDE MONO EXTENDED REL 30 MG TABCR PO SCH (08:43)
[2020-09-01] MEDS: ISOSORBIDE MONO EXTENDED REL 60 MG TABCR PO SCH (08:43)
[2020-09-01] MEDS: INSULIN ASPART 100 UNITS/ML 3 ML PEN SC SCH ×2 (08:45→12:47)
[2020-09-01] MEDS ORDERED: PSYLLIUM 58.6% POWDER PACKET PO SCH (09:00)
[2020-09-01] MEDS ORDERED: SULFAMETHOXAZOLE/TRIMETHOPRIM DS 800/160MG TAB PO SCH ×2 (10:30→21:00)
--- NOTE | 2020-09-13 19:38 | Discharge Summary ---
Date of Service September 13, 2020 Principal Diagnosis s/p right colectomy adenocarcinoma of colon Discharge Exam awake/alert Constitutional no acute distress Gastrointestinal (Abdomen) Inspection/Auscultation: + abdominal surgical incision (c/d/i with surgical pamela in place) Percussion/Palpation: abdomen soft Discharge Data Allergies Allergy/AdvReac Type Severity Reaction Status Date / Time diclofenac Allergy Mild ankle Verified 09/10/20 09:25 swelling JESSICA Inhibitors AdvReac Intermediate ARF Verified 09/10/20 09:25 iron AdvReac Mild nausea/ Verified 09/10/20 09:25 VOMITING Consultations 08/26/20 11:28 Consult Hospitalist Routine Procedures Performed Operation Date: 08/26/20 07:00 Actual Procedures s Hysteroscopy with myosure(Not Applicable) - Cathy Calderon DO p Laparoscopic Extended Hemicolectomy, Extensive enterolysis(Not Applicable) - Sohail Quiroga, Hospital Course (1) Adenocarcinoma of colon: (2) S/P right colectomy: This is a 80y F who presented to the [facility] on 4 for a scheduled right hemicolectomy with Dr. Quiroga for colonic mass along with a D&C with gynecology for history of thickened endometrium. The patient tolerated the procedure well, see op note for full details. The hospitalist service was consulted post operatively for assistance with medical management throughout patient's admission. On POD#1 patient's diet was advanced to clear liquids. Sims catheter remained in place. She had a transient hbg drop to 7.8 and she was type and crossed in the event she required a transfusion. Her hbg was monitored throughout patient's stay and remained stable never requiring a transfusion. She did have iron studies sent and received IV venofer. On POD#2 she continued on clear liquids due to low appetite and mild nausea. She reported some loose BM's. POD#3 patient's sims catheter was removed. Diet advanced to full liquids. Pain and nausea managed with prn medication. Activity encouraged. 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 POD#4 patient's diet advanced to low fiber. Questran was added to her regimen as she was complaining of loose/frequent stools, however due to nausea related to when she received the medication she refused multiple doses. Her BM's started to slow down ultimately on their own. Her LÁZARO drain was removed. POD#5 patient continued on a low fiber diet, minimal appetite. Pain remained controlled on prn oral regimen. On POD#6 patient reports feeling well. She did have some burning with urination and a UA was sent. She was treated for a UTI with bactrim x3 days (prescription given). She was tolerating a low fiber diet and having + bowel movements that were better controlled. PT cleared patient for home. [place] drain removed and incisions appeared clean and intact. Hospitalists asked patient return to take her Bumex every other day until follow up with her PCP or Banking And Finance Instructor. She was deemed stable for discharge to home with plans to follow up with Dr. Quiroga in 1-2 weeks. Total Time Total Time Spent Total Time Spent (In Minutes): 25 Discharge Plan Discharge Items Patient Disposition: Home - Home Health Services Reason For Visit: Right Colon Mass, Diabetes Discharge Diagnosis: right hemicolectomy Activity: Per Instructions section Lifting: No more than 10 pounds Bathing Comment: may shower; no soaking in tubs/pools Exercise/Sports: Wait until after follow-up appointment Driving/Machine Use: do not resume driving while taking narcotics for pain Non-emergency contact: Surgeon Call non-emergency contact if: you have any medication questions, your symptoms worsen, your pain is not controlled, your pain is worsening, you have a fever, your temperature is above 101.5, your wound has increased redness, your wound has increased drainage and your wound pain has increased Follow-up/Referrals: Sohail Quiroga DO [Surgeon] - 09/08/20 11:00 am (Please call to schedule follow up in clinic within 1 week) Bandar Conrad DO [Primary Care Provider] - 09/07/20 1:30 pm (Please call to schedule follow up in clinic within 1 week Pt is scheduled to see Dr Conrad on 09/07/20 @ 1:30 PM) Diet: Carb Consistent or DM2 and Low Fiber Addtl Attending Provider Instructions: Please schedule a follow up appointment with your Primary Care Provider within 1-2 weeks to discuss the events of your hospitalization and to assist you in scheduling further outpatient imaging regarding a indeterminate lesion found on your left kidney. - A CT abdomen and pelvis performed on July 05, 2020 shows there is a 2.2 cm indeterminate lesion in the interpolar left kidney. Although this could rep resent a complex cyst, renal neoplasm was not excluded and will need follow-up in correlation with a contrast-enhanced renal protocol MRI for further assessment - The hospitalists service has been following you during your admission and it was recommended that you take your Bumex every other day until you follow up in the office with your Primary Care Provider and Envelope Addresser or Banking And Finance Instructor. You should schedule a follow up appt with your follow up with your PCP within 1 week of discharge. - You have been prescribed an antibiotic called Bactrim to take for treatment of your urinary tract infection. - You have surgical pamela in place that will be removed at your follow up appointment. Please change your abdominal dressings daily with dry 4x4 gauze and medical tape until your drain sites are healed. Pending Studies at Discharge: Yes Studies:: surgical pathology Stand-Alone Forms: [facility] [employer], Opioid Pain Management, Smoking Cessation Medications and DC Order Prescriptions: New hydrocodone-acetaminophen 5-325 mg tablet 1 - 2 tab PO .q4h- q6h PRN (Reason: pain, for initial therapy, max 6 tabs per day ) Qty: 15 RF: 0 Continued potassium chloride [Klor-Con M20] 20 mEq tablet,ER particles/crystals 20 meq PO QAM Qty: 90 RF: 3 Lantus U-100 Insulin 100 unit/mL solution 60 unit SUBCUT HS 90 Days Qty: 54 RF: 3 alendronate [Fosamax] 70 mg tablet 70 mg PO WEEKLY Qty: 12 RF: 3 Eliquis 5 mg tablet 5 mg PO BID Qty: 60 RF: 11 bumetanide 0.5 mg tablet 0.5 mg PO QPM Qty: 90 RF: 3 aspirin 81 mg tablet,delayed release (DR/EC) 81 mg PO QPM RF: 0 metoprolol succinate 100 mg tablet extended release 24 hr 150 mg PO BID Qty: 270 RF: 3 nystatin 100,000 unit/gram powder 1 applic topical BID Qty: 30 RF: 3 (DME) pen needle, diabetic [BD Ultra-Fine Short Pen Needle] 31 gauge x 5/16" needle See Dose Instructions .ROUTE .MEDSUPPLY Qty: 30 RF: 0 tamoxifen 20 mg tablet 20 mg PO HS RF: 0 bumetanide 0.5 mg Tablet 0.5 mg PO QDL RF: 0 cilostazol 100 mg tablet 100 mg PO BID RF: 0 isosorbide mononitrate 30 mg tablet extended release 24 hr 30 mg PO QAM RF: 0 hydralazine 25 mg tablet 25 mg PO TID RF: 0 isosorbide mononitrate 60 mg tablet extended release 24 hr 60 mg PO QAM RF: 0 hydralazine 50 mg tablet 50 mg PO TID RF: 0 insulin aspart U-100 [Novolog Flexpen U-100 Insulin] 100 unit/mL (3 mL) insulin pen 0 unit SQ TID RF: 0 fluticasone propionate [Flonase Allergy Relief] 50 mcg/actuation Industry,Suspension 2 spray INTRANASAL DAILY PRN (Reason: Congestion) RF: 0 omega 5-wlb-bxa-fish oil [Fish Oil] 1,000 mg (120 mg-180 mg) Capsule 1 cap PO QPM RF: 0 cyanocobalamin (vitamin B-12) 1,000 mcg Capsule 1,000 mcg PO QAM RF: 0 magnesium oxide 400 mg Capsule 400 mg PO BID RF: 0 fexofenadine [Gabby Allergy] 60 mg tablet 60 mg PO DAILY PRN (Reason: Allergy Symptoms) RF: 0 atorvastatin 40 mg tablet 40 mg PO HS RF: 0 diclofenac sodium [Voltaren] 1 % Gel 2 g TOPICAL BID PRN (Reason: Pain) RF: 0 No Action Questran Light 4 gram powder 2 g PO TID Qty: 210 RF: 0 bumetanide 0.5 mg tablet 0.5 mg PO QAM RF: 0 Discharge Orders: Discharge Order (Routine); Ordered 09/01/20 Ordered By: Sohail Quiroga Admission Data Admit Date/Time: 08/26/20 10:15 Attending Provider: Sohail Quiroga Admit Provider: Sohail Quiroga Primary Care Provider: Bandar Conard Other Providers: [facility],Home Healthcare ; Robles Rhodes Other Interventions: Discharge Summary Assessment (RN) Last Done: 09/01/20 12:34 Coding Level of Care Code D/C Day Management <30 mins Diagnoses Adenocarcinoma of colon C18.9 S/P right colectomy Z90.49
== END 2020-09-01 14:27 | disposition home health service (06) | DRG 330 ==
LOC: ASU 05:25 → 3W 10:15

== ENCOUNTER 2020-09-03 21:23 | Inpatient (IN) ==
[2020-09-03] MEDS ORDERED: SODIUM CHLORIDE 0.9% 500 ML IV ONE (22:09)
[2020-09-03] MEDS ORDERED: PROMETHAZINE 6.25 MG/50.25 ML BAG IV STA (22:09)
[2020-09-04 00:38] LABS: Hemoglobin 8.4 g/dL (12.0-16.0); Mean Corpuscular Hemoglobin 32.4 pg (25-34); Mean Corpuscular Hgb Conc 32.3 g/dL (32-36); Mean Corpuscular Volume 100.4 fL (80-100); Nucleated RBC # (auto) 0.02 K/uL (0-0); Nucleated RBC % (auto) 0.4 %; RDW Coefficient of Variation 15.1 % (11.5-14.5); RDW Standard Deviation 53.8 fL (36.4-46.3); Red Blood Count 2.59 M/uL (4.2-5.4); White Blood Count 4.08 K/uL (4.8-10.8)
[2020-09-04] MEDS ORDERED: PROMETHAZINE 6.25 MG/50.25 ML NSS IV ONE (00:43)
[2020-09-04] MEDS ORDERED: PROMETHAZINE 12.5 MG/50.5 ML NSS IV ONE (00:57)
[2020-09-04 01:04] LABS: Albumin Level 2.5 gm/dl (3.4-5.0); BUN Creatinine Ratio 9.3 (10-20); Calcium 8.5 mg/dl (8.5-10.1); Creatinine Clr Calc Pharmacy 20.7 ml/min; Est GFR (African American) 19.8; Est GFR (Non-African American) 17.1; Potassium 5.3 mmol/L (3.5-5.1)
[2020-09-04 01:07] LABS: Albumin Globulin Ratio 0.7 (0.9-2); Bilirubin,Total 0.6 mg/dl (0.2-1); Globulin 3.6 gm/dl (2.5-4.0); Total Protein 6.1 gm/dl (6.4-8.2); Troponin I 0.04 ng/ml (0-0.045)
[2020-09-04 01:30] LABS: Mean Platelet Volume 10.4 fL (7.4-10.4); Platelet Count 91 K/uL (130-400)
[2020-09-04 01:31] LABS: Basophils # (auto) 0.01 K/uL (0-0.2); Basophils % (auto) 0.2 %; Eosinophils # (auto) 0.08 K/uL (0-0.5); Immature Granulocytes # (auto) 0.02 K/uL (0.00-0.02); Immature Granulocytes % (auto) 0.5 %; Lymphocytes # (auto) 0.68 K/uL (1.2-3.4); Lymphocytes % (auto) 16.7 %; Monocytes # (auto) 0.55 K/uL (0.11-0.59); Monocytes % (auto) 13.5 %; Neutrophils # (auto) 2.74 K/uL (1.4-6.5); Neutrophils % (auto) 67.1 %; Platelet Estimate Decreased (Normal)
--- NOTE | 2020-09-04 03:35 | History & Physical Report ---
Date of Service September 04, 2020 Assessment & Plan (1) Ileus: Patricia Unger is a 80-year-old female with past medical history significant for type 2 diabetes, chronic kidney disease, coronary artery disease, DVTs, s/p right hemicolectomy (08/26); presents to the ER for concerns of inability to tolerate oral intake with nausea, vomiting, and diarrhea over the last several days. Ileus: -Patient is status post right hemicolectomy (08/26) -Was taking hydrocodone/acetaminophen following discharge, also took Imodium -CT abdomen pelvis demonstrating concern for ileus/small bowel obstruction -General surgery consulted -Maintain patient n.p.o. at this time -Consideration of NG tube if no improvement Diarrhea: -Recent antibiotic course of Bactrim- following discharge for UTI -C. difficile testing ordered Thrombocytopenia: -Platelets 91 on admission, with appearance of previous platelets > 190 earlier in the week -Uncertain etiology of this drop, consideration of heparin-induced thrombocytopenia given patient's recent hospitalization with utilization of Lovenox -4 T score indicating intermediate probability of heparin-induced thrombocytopenia -Heparin antibodies ordered -Recheck CBC in a.m., consideration of peripheral smear if persistently low Acute kidney injury on CKD: -Baseline Cr approximately 1.5 -Cr on admission of 2.57 -Likely in the scenario of dehydration given persistent diarrhea and nausea and vomiting -NSS@100/hr Type 2 diabetes: -Sliding scale insulin ordered -BSG ACHS Coronary artery disease: -Having to hold home regimen given inability to tolerate oral intake at this time -Nitro paste in place of isosorbide Hypertension: -Hydralazine 10 mg q4h PRN for SBP>170 -Convert back to home oral regimen when able to tolerate oral intake, and improvement in heart rate History of DVT: -DVT originally noted in March, with continuation noted in July of this year -Complex medical decision regarding continued treatment in the setting of onset thrombocytopenia, in addition to SBO/ileus picture -Will hold additional chemoprophylaxis at this time Diet: N.p.o. at this time CODE STATUS: Full code (2) CKD (chronic kidney disease), stage IV: (3) S/P right colectomy: (4) Type 2 DM with CKD stage 3 and hypertension: (5) CAD (coronary artery disease): (6) DVT (deep venous thrombosis): History of Present Illness Primary Care Provider: Bandar Conrad DO Patricia Unger is a 80-year-old female with past medical history significant for type 2 diabetes, chronic kidney disease, coronary artery disease, DVTs, s/p right hemicolectomy (08/26); presents to the ER for concerns of inability to tolerate oral intake with nausea, vomiting, and diarrhea over the last several days. Patient states that following being discharged on 09/01 she felt okay for a short period of time however shortly thereafter she started to have very frequent diarrheal episodes daily. With these episodes she also noticed a return of some of her nausea and inability to take meds by mouth, even had difficulty with putting her dentures and causing her to be nauseous and vomit. Was given a prescription for Questran powder which she attempted to mix up and drink in order to calm her stomach however was unable to keep this medication down. Ultimately yesterday (09/03) she elected to take some Imodium following multiple intense diarrheal episodes, following which she started to notice more increased bloating and ultimately came to the ER for evaluation. Throughout this time has not had any abdominal pain, fevers, chills, sweats. Additionally, has not noticed any bleeding, bruising, changes to her skin. Allergies Allergy/AdvReac Type Severity Reaction Status Date / Time diclofenac Allergy Mild ankle Verified 09/04/20 07:17 swelling JESSICA Inhibitors AdvReac Intermediate ARF Verified 09/03/20 22:12 iron AdvReac Mild nausea/ Verified 09/03/20 22:12 VOMITING Home Medications Medication Instructions Recorded Confirmed Type cyanocobalamin (vitamin B-12) 1,000 mcg PO QAM 12/28/17 09/03/20 History fluticasone propionate [Flonase 2 spray INTRANASAL DAILY PRN 12/28/17 09/03/20 History Allergy Relief] magnesium oxide 400 mg PO BID 12/28/17 09/03/20 History omega 1-bnc-agc-fish oil [Fish Oil] 1 cap PO QPM 12/28/17 09/03/20 History fexofenadine 60 mg tablet 60 mg PO DAILY PRN 10/02/18 09/03/20 History pen needle, diabetic 31 gauge x #30 ea 11/22/18 08/06/20 History 5/16" tamoxifen 20 mg tablet 20 mg PO HS 12/20/19 04/30/21 History potassium chloride 20 mEq 20 meq PO QAM #90 tab 10/23/19 09/03/20 Rx tablet,extended release(part/cryst) insulin glargine 100 unit/mL 60 unit SUBCUT HS 90 Days #54 ml 11/26/19 09/03/20 Rx subcutaneous solution alendronate 70 mg tablet 70 mg PO WEEKLY #12 tab 05/10/20 09/03/20 Rx bumetanide 0.5 mg PO QDL 06/21/20 09/03/20 History bumetanide 1 mg PO QAM 06/21/20 09/03/20 History cilostazol 100 mg PO BID 06/21/20 09/03/20 History hydralazine 25 mg PO TID 06/21/20 09/03/20 History hydralazine 50 mg PO TID 06/21/20 09/03/20 History insulin aspart U-100 [Novolog 0 unit SQ TID 06/21/20 09/03/20 History Flexpen U-100 Insulin] isosorbide mononitrate 30 mg PO QAM 06/21/20 09/03/20 History isosorbide mononitrate 60 mg PO QAM 06/21/20 09/03/20 History apixaban 5 mg tablet 5 mg PO BID #60 tab 07/11/20 09/03/20 Rx aspirin 81 mg tablet,delayed 81 mg PO QPM 07/15/20 09/03/20 History release metoprolol succinate 100 mg 150 mg PO BID #270 tab 07/15/20 09/03/20 Rx tablet,extended release 24 hr bumetanide 0.5 mg tablet 0.5 mg PO QPM #90 tab 07/27/20 09/03/20 Rx nystatin 100,000 unit/gram topical 1 applic TOPICAL BID #30 g 08/06/20 09/03/20 Rx powder atorvastatin 40 mg PO HS 08/12/20 09/03/20 History diclofenac sodium [Voltaren] 2 g TOPICAL BID PRN 08/12/20 09/03/20 History ondansetron HCl [Zofran] 4 mg PO Q8H PRN 4 Days #12 tab 08/31/20 09/03/20 Rx hydrocodone-acetaminophen 1 - 2 tab PO .q4h- q6h PRN #15 tab 09/01/20 09/03/20 Rx sulfamethoxazole-trimethoprim 1 tab PO Q12H 3 Days #5 tab 09/01/20 09/03/20 Rx [Bactrim DS] cholestyramine-aspartame 4 gram 2 g PO TID #210 g 09/02/20 09/03/20 Rx oral powder Past Med/Surg History Medical History CAD (coronary artery disease) s/p 3 vessel CABG 2006 Chronic kidney disease STAGE 3-F/U DR LIND Last seen by nephro 07/20/20- kidney function stable at that time DVT (deep venous thrombosis) Right upper leg DVT -- March 2020 -- placed on eliquis.-NO ISSUES SINCE Recent u/s from 07/07/20= shows continued evidence of right common femoral DVT. Hx of acute respiratory failure WITH GB SURG 04/21/09 [facility] POST OP RESPIRATORY FAILURE-HAD TO BE VENTILATED,EXTUBATED NEXT DAY-PER PT SLOW TO WAKE UP IN GENERAL Right breast partial mastectomy 08/29/18 under [place] with LMA #4 x 3 attempts- atraumatic with good seal- no other issues noted Hx of breast cancer right breast (Jun 2018). surgical intervention + radiation therapy Hyperlipidemia Hypertension Lumbar spinal stenosis Osteoarthritis Peripheral vascular disease On Pletal Type 2 diabetes, controlled, with renal manifestation Venous stasis dermatitis LLE Surgical History History of adverse response to anesthesia SLOW TO WAKE. PT HAD RESP FAILURE S/P [facility] IN 2008 History of bilateral tubal ligation History of cardiac cath 2006 NO STENTS-[facility] History of cataract surgery BL History of cholecystectomy History of coronary artery bypass graft 3 VESSELS 2006[place] [place] History of dilatation and curettage History of esophagogastroduodenoscopy (EGD) History of Moh's micrographic surgery for skin cancer History of partial mastectomy of right breast History of total knee replacement LEFT 2017. S/P epidural steroid injection S/P laparoscopic colectomy (08/26/20) Laparoscopic Extended Hemicolectomy, Extensive enterolysis - Sohail Quiroga, S/P tendon repair R ARM Status post dilation and curettage 08/26/20 Dr. Cathy Calderon- Hysteroscopy, Dilation and Curettage, Possible Polypectomy Status post trigger finger release X2 Family History Mother , age 38 heart disease due to rheumatic fever No problems noted. Father , age 73 heart disease No problems noted. Sister No problems noted. Sister No problems noted. Sister No problems noted. Sister No problems noted. Sister No problems noted. Daughter Myocardial infarction Breast cancer Family history of reaction to anesthesia SLOW TO WAKE UP/PONV Daughter Heart disease Other No family history of adverse response to anesthesia Denies family history of Ovarian cancer Prostate cancer Colorectal cancer Social History Smoking Status: Never smoker Second Hand Exposure: Yes (SPOUSE SMOKED); Hx Alcohol Use: Yes Alcohol type: hard liquor Hx Substance Use: No Preferred Language: Mac[place] Communication Ability: Effective Visual Impairment: No Limitations Registered Nurse Post Partum Required: No Beliefs That Will Affect Care: None marital status: / Current Living Situation: Alone Feels Safe at Home: Yes Safety Concerns: Feels Safe At This Time Dental Care, Regularly: No Seatbelt Use: always Assistive Devices: None Review of Systems Review of Systems: All systems reviewed & are unremarkable except as noted in HPI & below Physical Exam Constitutional: WD/WN, vitals as above Eyes: PERRL, conjunctivae normal, anicteric sclerae Respiratory: normal respiratory effort, lungs clear to auscultation Auscultation: no crackles, no rales, no rhonchi and no wheezes Cardiovascular: Rate/Rhythm: regular rate and regular rhythm Heart Sounds: no gallop, no murmur and no cardiac rub Vessels: normal peripheral pulses; no JVD Extremities: no edema Gastrointestinal (Abdomen): Inspection/Auscultation: + abdomen distended, normal bowel sounds and + abdominal surgical incision Percussion/Palpation: abdomen soft; abdomen nontender and no guarding Musculoskeletal: no cyanosis or clubbing, extremities motor strength 5/5 Skin: no rashes, warm and dry Neurologic: PERRL, EOMI, accommodation nl, no face palsy, no dysarthria CN's II-XI intact bilaterally and moves all extremities Psychiatric: Orientation: alert and oriented x 3 Results & Data Results & Data ([facility]) Vital Signs (Past 12 Hours) Vital Signs Temp Pulse Pulse Resp BP BP Pulse Ox 09/04/20 02:04 59 L 16 174/63 H 92 09/03/20 23:26 69 68 18 93 09/03/20 21:30 64 68 18 154/51 H 94 09/03/20 21:25 36.9 C 83 16 202/62 H 95 Laboratory Results 09/04/20 09/04/20 09/04/20 Range/Units 02:25 02:25 00:33 WBC (4.8-10.8) K/uL RBC (4.2-5.4) M/uL Hgb (12.0-16.0) g/dL Hct (37-47) % MCV (80-100) fL MCH (25-34) pg MCHC (32-36) g/dL RDW Std Deviation (36.4-46.3) fL RDW Coeff of Kirsty (11.5-14.5) % Plt Count (130-400) K/uL MPV (7.4-10.4) fL Immature Gran % (Auto) % Neut % (Auto) % Lymph % (Auto) % Hunt % (Auto) % Eos % (Auto) % Baso % (Auto) % Neut # (Auto) (1.4-6.5) K/uL Lymph # (Auto) (1.2-3.4) K/uL Hunt # (Auto) (0.11-0.59) K/uL Eos # (Auto) (0-0.5) K/uL Baso # (Auto) (0-0.2) K/uL Immature Gran # (Auto) (0.00-0.02) K/uL Absolute Nucleated RBC (0-0) K/uL Nucleated RBC % (auto) % Platelet Estimate (Normal) Sodium 140 (136-145) mmol/L Potassium 5.3 H (3.5-5.1) mmol/L Chloride 115 H (98-107) mmol/L Carbon Dioxide 20 L (21-32) mmol/L Anion Gap 5.0 (3-11) BUN 24 H (7-18) mg/dl Creatinine 2.57 H (0.6-1.2) mg/dl Est Cr Clr Drug Dosing 20.7 ml/min Est GFR ( Amer) 19.8 Est GFR (Non-Af Amer) 17.1 BUN/Creatinine Ratio 9.3 L (10-20) Glucose 88 (70-99) mg/dl Calcium 8.5 (8.5-10.1) mg/dl Total Bilirubin 0.6 (0.2-1) mg/dl AST 26 (15-37) U/L ALT 23 (12-78) U/L Alkaline Phosphatase 44 L (45-117) U/L Troponin I 0.040 (0-0.045) ng/ml Total Protein 6.1 L (6.4-8.2) gm/dl Albumin 2.5 L (3.4-5.0) gm/dl Globulin 3.6 (2.5-4.0) gm/dl Albumin/Globulin Ratio 0.7 L (0.9-2) Lipase 59 L (73-393) U/L COVID-19 Eval Order CovFluRsv at [facility] SARS-CoV-2 (PCR) Pending Influenza Type A (PCR) Pending Influenza Type B (PCR) Pending RSV (RT-PCR) Pending 09/04/20 Range/Units 00:33 WBC 4.08 L (4.8-10.8) K/uL RBC 2.59 L (4.2-5.4) M/uL Hgb 8.4 L (12.0-16.0) g/dL Hct 26.0 L (37-47) % MCV 100.4 H (80-100) fL MCH 32.4 (25-34) pg MCHC 32.3 (32-36) g/dL RDW Std Deviation 53.8 H (36.4-46.3) fL RDW Coeff of Kirsty 15.1 H (11.5-14.5) % Plt Count 91 L (130-400) K/uL MPV 10.4 (7.4-10.4) fL Immature Gran % (Auto) 0.5 % Neut % (Auto) 67.1 % Lymph % (Auto) 16.7 % Hunt % (Auto) 13.5 % Eos % (Auto) 2.0 % Baso % (Auto) 0.2 % Neut # (Auto) 2.74 (1.4-6.5) K/uL Lymph # (Auto) 0.68 L (1.2-3.4) K/uL Hunt # (Auto) 0.55 (0.11-0.59) K/uL Eos # (Auto) 0.08 (0-0.5) K/uL Baso # (Auto) 0.01 (0-0.2) K/uL Immature Gran # (Auto) 0.02 (0.00-0.02) K/uL Absolute Nucleated RBC 0.02 H (0-0) K/uL Nucleated RBC % (auto) 0.4 % Platelet Estimate Decreased L (Normal) Sodium (136-145) mmol/L Potassium (3.5-5.1) mmol/L Chloride (98-107) mmol/L Carbon Dioxide (21-32) mmol/L Anion Gap (3-11) BUN (7-18) mg/dl Creatinine (0.6-1.2) mg/dl Est Cr Clr Drug Dosing ml/min Est GFR ( Amer) Est GFR (Non-Af Amer) BUN/Creatinine Ratio (10-20) Glucose (70-99) mg/dl Calcium (8.5-10.1) mg/dl Total Bilirubin (0.2-1) mg/dl AST (15-37) U/L ALT (12-78) U/L Alkaline Phosphatase (45-117) U/L Troponin I (0-0.045) ng/ml Total Protein (6.4-8.2) gm/dl Albumin (3.4-5.0) gm/dl Globulin (2.5-4.0) gm/dl Albumin/Globulin Ratio (0.9-2) Lipase (73-393) U/L COVID-19 Eval Order SARS-CoV-2 (PCR) Influenza Type A (PCR) Influenza Type B (PCR) RSV (RT-PCR) Diagnostic Findings CT ABDOMEN & PELVIS Without Contrast: Multiple fluid distended loops of small bowel throughout the abdomen and pelvis extending to the surgical anastomosis in the right upper quadrant in the area of partial right segmental colectomy, new from the previous examination dated 021 (the appendix is not present, as specifically reported in history). The transverse and left-sided colon is predominantly decompressed. Differential consideration includes postoperative ileus versus small bowel obstruction. No pneumatosis or pneumoperitoneum. No free intraperitoneal fluid. Overlying vertical and right upper quadrant superficial skin pamela with subcutaneous edema involving the anterior and anterolateral subcutaneous fat, consistent with recent postoperative status. No subcutaneous hematoma, abdominal wall hernia or loculated fluid collection. The liver, gallbladder, pancreas, spleen, adrenal glands and kidneys demonstrate no significant acute abnormality or interval change from the previous examination. Stable right renal cortical cyst and left subcentimeter nonobstr uctive nephrolithiasis. The bladder is mildly distended without significant wall abnormalities or calcifications. No acute osseous abnormality. Radiologist: Sohail Hills MD Code Status & VTE Plan VTE Prophylaxis Plan VTE Prophylaxis will be ordered: Yes Supervising Physician Co-Signing Physician Notes Attending addendum: I have physically seen this patient, have supervised the medical residents activities, and agree with the H&P unless as otherwise noted. Assessment and Plan: Postoperative ileus- Status post right hemicolectomy 08/[address] Quiroga NPO IV fluids No NG tube needed at this time Zosyn 4.5 g IV every 8 hours C. difficile studies pending Consult general surgery Thrombocytopenia- Platelets 91 upon admission, with most recent greater than 190 Work-up for HIT Follow laboratories daily Peripheral smear Consult hematology ELADIA on CKD- Creatinine 2.57, with range 1.55-2.09 Secondary to loss of fluid through stool IV fluids Recheck laboratories in a.m. Remaining orders and notations as noted Resident Activity Tracking Resident Involvement: Resident Care Provided Care Provided: Adult Hospital Medicine (1) DVT (deep venous thrombosis) Affected thrombotic vein of extremity: femoral Chronicity: chronic DVT location: lower extremity Laterality: right Qualified Code(s): I82.511 - Chronic embolism and thrombosis of right femoral vein (2) CAD (coronary artery disease) Associated angina: without angina Coronary Disease-Associated Artery/Lesion type: [place] artery [place] vs. transplanted heart: [place] heart Qualified Code(s): I25.10 - Atherosclerotic heart disease of [place] coronary artery without angina pectoris
[2020-09-04 03:38] LABS: Influenza A virus by PCR Negative (Neg); Influenza B virus by PCR Negative (Neg); RSV by PCR Negative (Neg); SARS CoV2 RNA(COVID-19) InHosp NEGATIVE (Negative)
[2020-09-04] MEDS ORDERED: GLUCAGON FOR INJ 1 MG VIAL SQ PRN (05:13)
[2020-09-04] MEDS ORDERED: GLUCOSE 40% GEL 15 GM TUBE PO PRN (05:13)
[2020-09-04] MEDS ORDERED: GLUCOSE 10 TABS/TUBE PO PRN (05:13)
[2020-09-04] MEDS ORDERED: CARBOHYDRATES FOR HYPOGLYCEMIA PO PRN (05:13)
[2020-09-04] MEDS ORDERED: DEXTROSE 50% 50 ML SYRINGE IV PRN (05:13)
[2020-09-04] MEDS ORDERED: hydrALAZINE HCL 20 MG/ML VIAL IV PRN (05:13)
[2020-09-04] MEDS: SODIUM CHLORIDE 0.9% 1000ML 1,000 ML IV SCH ×2 (05:33→18:43)
[2020-09-04] MEDS: NITROGLYCERIN 2% OINTMENT 30GM TUBE EXT SCH ×4 (05:37→23:26)
[2020-09-04] MEDS: INSULIN ASPART 100 UNITS/ML 3 ML PEN SC SCH ×4 (07:57→18:46)
--- NOTE | 2020-09-04 08:04 | Surgery Consultation ---
Date of Consultation September 04, 2020 Assessment & Plan (1) Ileus: This is a 80y F with a PMH of CKD, DM2, CAD, DVT who is recently s/p R hemicolectomy on 08/[address] Quiroga who presents to the [facility] ED on 09/03/20 with complaints of diarrhea, vomiting, and poor oral intake since discharge. Patient reports having copious amounts of loose stool, majority of it occurring yesterday, associated with emesis x2. She attempted taking imodium without relief in her symptoms. In the ER she underwent a CT a/p that revealed multiple fluid distended loops of small bowel throughout the abdomen extending to the anastomosis in the right upper quadrant in the area of the of partial right segmental colectomy with the transverse colon and Left colon predominantly decompressed, differential being ileus vs small bowel obstruction. Patient's labs notable for WBC 4, Plt: 91, Cr: 2.5, K: 5.3. Vital signs are stable. On exam patient's abdomen is soft, non tender, incisions c/d/i, an distended. She has not had any BM's since admission. Would continue supportive care. Patient may have ice chips/sips today. Continue IVF resuscitation for her dehydration. KUB for tomorrow AM. As above. Suspect swelling at her anastomosis causing a functional partial small bowel obstruction. Feeling better now. No pain. No nausea. No further diarrhea. Will gently rehydrate her and correct electrolytes. Keep her n.p.o. for now. History of Present Illness Attending Physician: John Holland MD History of Present Illness This is a 80y F with a PMH of CKD, DM2, CAD, DVT who is recently s/p R hemicolectomy on 08/[address] Quiroga who presents to the [facility] ED on 09/03/20 with complaints of diarrhea, vomiting, and poor oral intake. Of note patient was discharged from her hospitalization following R hemicolectomy on 09/01. She states she was doing well the day she got home and then starting 09/02 noticed she was having frequent loose stool. Her home health care agency prescribed her a medication to help slow her bowels, but she was unable to tolerate this (?questran). Yesterday patient said she ate some toast and tea in the AM and then between 1-5p developed severe watery diarrhea. She said she was in the bathroom the majority of that time. She also reports vomiting x2 and was unable to put her dentures back in due to gagging. Her daughter purchased her some Imodium of which the patient took two doses of. Patient denies much in the way of abdominal pain, but says she has this sensation of abdominal fullness and things not moving through. She eventually did not feel any improvement in her symptoms and she decided to call in and was asked to come into the ER for further evaluation. In the ER she underwent a CT a/p that revealed findings of ileus vs sbo. She was admitted under medicine with surgical consultation. Allergies Allergy/AdvReac Type Severity Reaction Status Date / Time diclofenac Allergy Mild ankle Verified 09/04/20 07:17 swelling JESSICA Inhibitors AdvReac Intermediate ARF Verified 09/03/20 22:12 iron AdvReac Mild nausea/ Verified 09/03/20 22:12 VOMITING Home Medications Medication Instructions Recorded Confirmed Type cyanocobalamin (vitamin B-12) 1,000 mcg PO QAM 12/28/17 09/03/20 History fluticasone propionate [Flonase 2 spray INTRANASAL DAILY PRN 12/28/17 09/03/20 History Allergy Relief] magnesium oxide 400 mg PO BID 12/28/17 09/03/20 History omega [id number] oil [Fish Oil] 1 cap PO QPM 12/28/17 09/03/20 History fexofenadine 60 mg tablet 60 mg PO DAILY PRN 10/02/18 09/03/20 History pen needle, diabetic 31 gauge x #30 ea 11/22/18 08/06/20 History 5/16" tamoxifen 20 mg tablet 20 mg PO HS 04/25/19 09/03/20 History potassium chloride 20 mEq 20 meq PO QAM #90 tab 10/23/19 09/03/20 Rx tablet,extended release(part/cryst) insulin glargine 100 unit/mL 60 unit SUBCUT HS 90 Days #54 ml 11/26/19 09/03/20 Rx subcutaneous solution alendronate 70 mg tablet 70 mg PO WEEKLY #12 tab 05/10/20 09/03/20 Rx bumetanide 0.5 mg PO QDL 06/21/20 09/03/20 History bumetanide 1 mg PO QAM 06/21/20 09/03/20 History cilostazol 100 mg PO BID 06/21/20 09/03/20 History hydralazine 25 mg PO TID 06/21/20 09/03/20 History hydralazine 50 mg PO TID 06/21/20 09/03/20 History insulin aspart U-100 [Novolog 0 unit SQ TID 06/21/20 09/03/20 History Flexpen U-100 Insulin] isosorbide mononitrate 30 mg PO QAM 06/21/20 09/03/20 History isosorbide mononitrate 60 mg PO QAM 06/21/20 09/03/20 History apixaban 5 mg tablet 5 mg PO BID #60 tab 07/11/20 09/03/20 Rx aspirin 81 mg tablet,delayed 81 mg PO QPM 07/15/20 09/03/20 History release metoprolol succinate 100 mg 150 mg PO BID #270 tab 07/15/20 09/03/20 Rx tablet,extended release 24 hr bumetanide 0.5 mg tablet 0.5 mg PO QPM #90 tab 07/27/20 09/03/20 Rx nystatin 100,000 unit/gram topical 1 applic TOPICAL BID #30 g 08/06/20 09/03/20 Rx powder atorvastatin 40 mg PO HS 08/12/20 09/03/20 History diclofenac sodium [Voltaren] 2 g TOPICAL BID PRN 08/12/20 09/03/20 History ondansetron HCl [Zofran] 4 mg PO Q8H PRN 4 Days #12 tab 08/31/20 09/03/20 Rx hydrocodone-acetaminophen 1 - 2 tab PO .q4h- q6h PRN #15 tab 09/01/20 09/03/20 Rx sulfamethoxazole-trimethoprim 1 tab PO Q12H 3 Days #5 tab 09/01/20 09/03/20 Rx [Bactrim DS] cholestyramine-aspartame 4 gram 2 g PO TID #210 g 09/02/20 09/03/20 Rx oral powder Patient History Medical History CAD (coronary artery disease) s/p 3 vessel CABG 2006 Chronic kidney disease STAGE 3-F/U DR LIND Last seen by nephro 07/20/20- kidney function stable at that time DVT (deep venous thrombosis) Right upper leg DVT -- March 2020 -- placed on eliquis.-NO ISSUES SINCE Recent u/s from 07/07/20= shows continued evidence of right common femoral DVT. Hx of acute respiratory failure WITH GB SURG 04/21/09 [facility] POST OP RESPIRATORY FAILURE-HAD TO BE VENTILATED,EXTUBATED NEXT DAY-PER PT SLOW TO WAKE UP IN GENERAL Right breast partial mastectomy 08/29/18 under [place] with LMA #4 x 3 attempts- atraumatic with good seal- no other issues noted Hx of breast cancer right breast (Jun 2018). surgical intervention + radiation therapy Hyperlipidemia Hypertension Lumbar spinal stenosis Osteoarthritis Peripheral vascular disease On Pletal Type 2 diabetes, controlled, with renal manifestation Venous stasis dermatitis LLE Surgical History History of adverse response to anesthesia SLOW TO WAKE. PT HAD RESP FAILURE S/P KYLAH IN 2008 History of bilateral tubal ligation History of cardiac cath 2006 NO STENTS-[facility] History of cataract surgery BL History of cholecystectomy History of coronary artery bypass graft 3 VESSELS 2006-[facility] [place] History of dilatation and curettage History of esophagogastroduodenoscopy (EGD) History of Moh's micrographic surgery for skin cancer History of partial mastectomy of right breast History of total knee replacement LEFT 2017. S/P epidural steroid injection S/P laparoscopic colectomy (08/26/20) Laparoscopic Extended Hemicolectomy, Extensive enterolysis - Sohail Quiroga, DO S/P tendon repair R ARM Status post dilation and curettage 08/26/20 Dr. Cathy Calderon- Hysteroscopy, Dilation and Curettage, Possible Polypectomy Status post trigger finger release X2 Family History Mother , age 38 heart disease due to rheumatic fever No problems noted. Father , age 73 heart disease No problems noted. Sister No problems noted. Sister No problems noted. Sister No problems noted. Sister No problems noted. Sister No problems noted. Daughter Myocardial infarction Breast cancer Family history of reaction to anesthesia SLOW TO WAKE UP/PONV Daughter Heart disease Other No family history of adverse response to anesthesia Denies family history of Ovarian cancer Prostate cancer Colorectal cancer Social History Smoking Status: Never smoker Second Hand Exposure: Yes (SPOUSE SMOKED); Hx Alcohol Use: Yes Alcohol type: hard liquor Hx Substance Use: No Preferred Language: Chinese Communication Ability: Effective Visual Impairment: No Limitations Automotive Drivability Technician Required: No Beliefs That Will Affect Care: None marital status: / Current Living Situation: Alone Feels Safe at Home: Yes Safety Concerns: Feels Safe At This Time Dental Care, Regularly: No Seatbelt Use: always Assistive Devices: None Review of Systems Constitutional: no fever and no chills Respiratory: no dyspnea Cardiovascular: no chest pain Gastrointestinal: + vomiting and + diarrhea/loose stools; no nausea abdominal "fullness" Physical Exam Physical Exam: awake/alert Constitutional: no acute distress Respiratory: normal respiratory effort Gastrointestinal (Abdomen): Inspection/Auscultation: + abdomen distended and + abdominal surgical incision (c/d/i, some drainage on superior dressing) Percussion/Palpation: abdomen soft; abdomen nontender Results & Data ([facility]) Vital Signs (Past 12 Hours) Vital Signs Temp Pulse Pulse Resp BP BP Pulse Ox 09/04/20 07:33 37.0 C 68 18 169/62 H 98 09/04/20 05:57 72 09/04/20 05:03 37 C 71 20 95 09/04/20 04:17 59 L 18 163/90 H 93 09/04/20 02:04 59 L 16 174/63 H 92 09/03/20 23:26 69 68 18 93 09/03/20 21:30 64 68 18 154/51 H 94 09/03/20 21:25 36.9 C 83 16 202/62 H 95 PG Care Time/CCT Total # of Minutes Spent Total Time Spent with Patient: Total time spent is greater than 50% in coordination of care (as documented) at patient's floor/unit and/or counseling patient: Coding Level of Care Code None Diagnoses Ileus K56.7
--- NOTE | 2020-09-04 08:24 | CT Scan Report ---
CT SCAN OF THE ABDOMEN AND PELVIS WITHOUT CONTRAST CLINICAL HISTORY: abdominal pain, vomiting, diarrhea, recent surgery COMPARISON STUDY: July 05, 2020 TECHNIQUE: CT scan of the abdomen and pelvis was performed from the lung bases to the proximal femurs . Images are reviewed in the axial, sagittal, and coronal planes. IV contrast was not administered fo r this examination. A dose lowering technique was utilized adhering to the principles of ALARA. CT DOSE: 1277.89 mGy.cm FINDINGS: Lower chest: There are bibasilar atelectatic changes. There is trace pleural effusions. Liver: The unenhanced liver is normal in size, contour, and attenuation. There is no intrahepatic kiana iary ductal dilatation. Gallbladder: Contracted. Cholelithiasis. Spleen: Normal in size and attenuation. Pancreas: Atrophic. Stable 8 mm nodule within the pancreatic body. Adrenal glands: Unremarkable. Kidneys: There is redemonstration of an indeterminate 2 cm midpole left renal mass. There is a nonobs tructing lower pole left renal calculus. Hypodense right renal lesions approach water attenuation lik vlad represent cysts Bowel: There is evidence for interval right hemicolectomy with an ileocolonic anastomosis. There are multiple fluid-filled small bowel loops with air-fluid levels extending to the level of the anastomos is. Findings are consistent with a post surgical ileus, or partial small bowel obstruction, either se condary to postsurgical anastomotic edema or anastomotic stricture. Peritoneum: There is no free air. There is trace ascites. There is a fat-containing ventral hernia. Vasculature: The abdominal aorta is normal in course and caliber. Adenopathy: None. Pelvic viscera: There are multiple uterine fibroids. The endometrium is thickened for age. Further wo rkup recommended.. Skeletal structures: No destructive osseous lesions are seen. IMPRESSION: 1. Interval right hemicolectomy with an ileocolonic anastomosis 2. Trace ascites 3. Mildly dilated fluid-filled small bowel loops. Diagnostic considerations include postsurgical ileu s, or postsurgical bowel obstruction secondary to either anastomotic stricture or postsurgical anasto motic edema. 4. Contracted gallbladder. Cholelithiasis 5. Left-sided nephrolithiasis 6. Redemonstration of an indeterminate 2 cm left renal mass. Further workup again advocated. 7. Thickened endometrium for age. Further workup again recommended. ACT 112: Negative or not required by law. Electronically signed by: Anup Amador M.D. 09/04/2020 8:22 AM
[2020-09-04 08:55] LABS: Hematocrit (blood only) 25.4 % (37-47); Hemoglobin 8.4 g/dL (12.0-16.0); Mean Corpuscular Hemoglobin 33.6 pg (25-34); Mean Corpuscular Hgb Conc 33.1 g/dL (32-36); Mean Corpuscular Volume 101.6 fL (80-100); Mean Platelet Volume 9.5 fL (7.4-10.4); Platelet Count 175 K/uL (130-400); RDW Coefficient of Variation 15.2 % (11.5-14.5); RDW Standard Deviation 55.7 fL (36.4-46.3); White Blood Count 3.95 K/uL (4.8-10.8)
[2020-09-04 08:58] LABS: Basophils # (auto) 0.01 K/uL (0-0.2); Basophils % (auto) 0.3 %; Eosinophils # (auto) 0.12 K/uL (0-0.5); Immature Granulocytes # (auto) 0.01 K/uL (0.00-0.02); Immature Granulocytes % (auto) 0.3 %; Lymphocytes # (auto) 0.71 K/uL (1.2-3.4); Monocytes # (auto) 0.42 K/uL (0.11-0.59); Monocytes % (auto) 10.6 %; Neutrophils # (auto) 2.68 K/uL (1.4-6.5); Neutrophils % (auto) 67.8 %; Toxic Vacuolation 1+
[2020-09-04 09:06] LABS: BUN Creatinine Ratio 10.2 (10-20); Calcium 8.4 mg/dl (8.5-10.1); Creatinine Clr Calc Pharmacy 21.8 ml/min; Est GFR (African American) 21.4; Est GFR (Non-African American) 18.5; Magnesium 2.2 mg/dl (1.8-2.4); Potassium 4.9 mmol/L (3.5-5.1)
[2020-09-04 09:07] LABS: Phosphorus 2.7 mg/dl (2.5-4.9)
[2020-09-04] MEDS ORDERED: ONDANSETRON INJ 2 MG/ML 2 ML VIAL IV PRN (12:26)
--- NOTE | 2020-09-04 12:28 | Hospitalist Progress Note ---
Date of Service September 04, 2020 Assessment & Plan (1) Ileus: Patricia Unger is a 80-year-old female with past medical history significant for type 2 diabetes, chronic kidney disease, coronary artery disease, DVTs, s/p right hemicolectomy (08/26); presents to the ER for concerns of inability to tolerate oral intake with nausea, vomiting, and diarrhea over the last several days. Ileus/SBO: -CT abdomen pelvis demonstrating concern for ileus/small bowel obstruction -Patient is status post right hemicolectomy (08/26). Likely swelling at her anastomosis causing a functional partial small bowel obstruction -Was taking hydrocodone/acetaminophen following discharge, also took Imodium -KUB for tomorrow AM -Will cont supportive care -Maintain patient n.p.o. at this time except sips/chips -IVF NSS at 100 mls/hr -Consideration of NG tube if no improvement -General surgery consulted appreciated Thrombocytopenia-resolved -Platelets 91 on admission, with appearance of previous platelets > 190 earlier in the week -Uncertain etiology of this drop, consideration of heparin-induced thrombocytopenia given patient's recent hospitalization with utilization of Lovenox -4 T score indicating intermediate probability of heparin-induced thrombocytopenia. Heparin antibodies ordered -Recheck CBC in a.m showing normal plts Acute kidney injury on CKD: -Baseline Cr approximately 1.5 -Cr on admission of 2.57 -Likely in the scenario of dehydration given persistent diarrhea and nausea and vomiting -NSS@100/hr as above Diarrhea-improved -Recent antibiotic course of Bactrim- following discharge for UTI -C. difficile testing ordered Type 2 diabetes: -Sliding scale insulin ordered -BSG ACHS CAD/HTN -Cont PO atorvastatin, ASA, isosorbide mononitrate, metoprolol succinate, hydralazine as directed -IV Hydralazine 10 mg q4h PRN for SBP>170 History of DVT: -DVT originally noted in March, with continuation noted in July of this year -restarted home Eliquis 5 mg BID Diet: N.p.o. at this time DVT Prophylaxis: Eliquis CODE STATUS: Full code Dispo: Downgrade to med surg Admission and Anticipated Discharge Date Admission Date: September 04, 2020 Supervising Physician Co-Signing Physician Notes I personally examined the patient and verified all anthony points of history and exam, discussed case, and agree with decision making with Dr Whatley. Feeling about the same. No new complaints though. Understands plan of care. Appreciate surgical input. Vitals noted, in general she is awake and alert pleasant no distress. HEENT normocephalic atraumatic mucous membranes moist. Breathing unlabored no accessory muscle use good effort. Skin shows no rashes no pallor or icterus. Neuro shows no focal deficits. Ileusstable, unlikely to need surgical intervention, continue conservative care, anticipate slow progress. Otherwise as above. Subjective Seen at bedside, no acute overnight events. Pt states still feels fatigued. Not much appetite. Has not had a BM or passed gas since admission. No N/V/D. No other acute concerns or complaints. Review of Systems Review of Systems: All systems reviewed & are unremarkable except as noted in HPI & below Physical Exam Constitutional: WD/WN, vitals as above Eyes: PERRL, conjunctivae normal, anicteric sclerae ENMT: external ear and nose normal, oropharynx normal Respiratory: normal respiratory effort, lungs clear to auscultation Cardiovascular: RRR, no murmur, no edema Gastrointestinal (Abdomen): Inspection/Auscultation: + abdomen distended and + abdominal surgical incision (C/D/I) Percussion/Palpation: abdomen soft; abdomen nontender and no guarding Skin: no rashes, warm and dry Psychiatric: A+Ox3, euthymic affect Results & Data Results & Data ([facility]) Vital Signs (Past 12 Hours) Vital Signs Temp Pulse Pulse Resp BP Pulse Ox 09/04/20 11:08 36.7 C 75 18 198/70 H 99 09/04/20 07:33 37.0 C 68 18 169/62 H 98 09/04/20 05:57 72 09/04/20 05:03 37 C 71 20 95 09/04/20 04:17 59 L 18 163/90 H 93 09/04/20 02:04 59 L 16 174/63 H 92 Laboratory Results Laboratory Results - last 24 hr 09/04/20 09/04/20 09/04/20 00:33 00:33 02:25 WBC 4.08 L RBC 2.59 L Hgb 8.4 L Hct 26.0 L MCV 100.4 H MCH 32.4 MCHC 32.3 RDW Std Deviation 53.8 H RDW Coeff of Kirsty 15.1 H Plt Count 91 L MPV 10.4 Immature Gran % (Auto) 0.5 Neut % (Auto) 67.1 Lymph % (Auto) 16.7 [place] % (Auto) 13.5 Eos % (Auto) 2.0 Baso % (Auto) 0.2 Neut # (Auto) 2.74 Lymph # (Auto) 0.68 L [place] # (Auto) 0.55 Eos # (Auto) 0.08 Baso # (Auto) 0.01 Immature Gran # (Auto) 0.02 Absolute Nucleated RBC 0.02 H Nucleated RBC % (auto) 0.4 Toxic Vacuolation Platelet Estimate Decreased L Sodium 140 Potassium 5.3 H Chloride 115 H Carbon Dioxide 20 L Anion Gap 5.0 BUN 24 H Creatinine 2.57 H Est Cr Clr Drug Dosing 20.7 Est GFR ( Amer) 19.8 Est GFR (Non-Af Amer) 17.1 BUN/Creatinine Ratio 9.3 L Glucose 88 POC Glucose Calcium 8.5 Phosphorus Magnesium Total Bilirubin 0.6 AST 26 ALT 23 Alkaline Phosphatase 44 L Troponin I 0.040 Total Protein 6.1 L Albumin 2.5 L Globulin 3.6 Albumin/Globulin Ratio 0.7 L Lipase 59 L COVID-19 Eval Order CovFluRsv at [facility] SARS-CoV-2 (PCR) Influenza Type A (PCR) Influenza Type B (PCR) RSV (RT-PCR) 09/04/20 09/04/20 09/04/20 02:25 05:07 07:46 WBC RBC Hgb Hct MCV MCH MCHC RDW Std Deviation RDW Coeff of Kirsty Plt Count MPV Immature Gran % (Auto) Neut % (Auto) Lymph % (Auto) [place] % (Auto) Eos % (Auto) Baso % (Auto) Neut # (Auto) Lymph # (Auto) [place] # (Auto) Eos # (Auto) Baso # (Auto) Immature Gran # (Auto) Absolute Nucleated RBC Nucleated RBC % (auto) Toxic Vacuolation Platelet Estimate Sodium Potassium Chloride Carbon Dioxide Anion Gap BUN Creatinine Est Cr Clr Drug Dosing Est GFR ( Amer) Est GFR (Non-Af Amer) BUN/Creatinine Ratio Glucose POC Glucose 81 89 Calcium Phosphorus Magnesium Total Bilirubin AST ALT Alkaline Phosphatase Troponin I Total Protein Albumin Globulin Albumin/Globulin Ratio Lipase COVID-19 Eval Order SARS-CoV-2 (PCR) NEGATIVE Influenza Type A (PCR) Negative Influenza Type B (PCR) Negative RSV (RT-PCR) Negative 09/04/20 09/04/20 09/04/20 08:27 08:27 12:13 WBC 3.95 L RBC 2.50 L Hgb 8.4 L Hct 25.4 L MCV 101.6 H MCH 33.6 MCHC 33.1 RDW Std Deviation 55.7 H RDW Coeff of Kirsty 15.2 H Plt Count 175 D MPV 9.5 Immature Gran % (Auto) 0.3 Neut % (Auto) 67.8 Lymph % (Auto) 18.0 [place] % (Auto) 10.6 Eos % (Auto) 3.0 Baso % (Auto) 0.3 Neut # (Auto) 2.68 Lymph # (Auto) 0.71 L [place] # (Auto) 0.42 Eos # (Auto) 0.12 Baso # (Auto) 0.01 Immature Gran # (Auto) 0.01 Absolute Nucleated RBC Nucleated RBC % (auto) Toxic Vacuolation 1+ Platelet Estimate Sodium 140 Potassium 4.9 Chloride 115 H Carbon Dioxide 20 L Anion Gap 5.0 BUN 25 H Creatinine 2.41 H Est Cr Clr Drug Dosing 21.8 Est GFR ( Amer) 21.4 Est GFR (Non-Af Amer) 18.5 BUN/Creatinine Ratio 10.2 Glucose 77 POC Glucose 94 Calcium 8.4 L Phosphorus 2.7 Magnesium 2.2 Total Bilirubin AST ALT Alkaline Phosphatase Troponin I Total Protein Albumin Globulin Albumin/Globulin Ratio Lipase COVID-19 Eval Order SARS-CoV-2 (PCR) Influenza Type A (PCR) Influenza Type B (PCR) RSV (RT-PCR) Medications Administered Current Inpatient Medications Apixaban (Apixaban 5 Mg Tablet) 5 mg PO BID TRISH Stop: 10/04/20 20:59 Dextrose (Dextrose 50% 50 Ml Syringe) 25 - 50 ml IV UD PRN; Protocol PRN Reason: Hypoglycemia Protocol Stop: 10/04/20 05:12 Glucagon (Glucagon For Inj 1 Mg Vial) 1 mg SQ UD PRN; Protocol PRN Reason: Hypoglycemia Protocol Stop: 10/04/20 05:12 Glucose (Glucose 10 Tabs/Tube) 4 - 8 tabs PO UD PRN; Protocol PRN Reason: Hypoglycemia Protocol Stop: 10/04/20 05:12 Glucose (Glucose 40% Gel 15 Gm Tube) 15 - 30 gm PO UD PRN; Protocol PRN Reason: Hypoglycemia Protocol Stop: 10/04/20 05:12 Hydralazine HCl (Hydralazine Hcl 20 Mg/Ml Vial) 10 mg IV Q4H PRN PRN Reason: SBP>170 Stop: 10/04/20 05:12 Sodium Chloride (Nss 1000ml) 1,000 mls @ 100 mls/hr IV .Q10H TRISH Stop: 10/04/20 05:12 Last Admin: 09/04/20 05:33 Dose: 80 mls/hr Documented by: Insulin Aspart (Insulin Aspart 100 Units/Ml 3 Ml Pen) 0 units SC ACHS TRISH Stop: 10/04/20 07:29 Last Admin: 09/04/20 07:57 Dose: Not Given Documented by: Miscellaneous (Carbohydrates For Hypoglycemia ) 15 - 30 gm PO UD PRN PRN Reason: Hypoglycemia Protocol Stop: 10/04/20 05:12 Nitroglycerin (Nitroglycerin 2% Ointment 30gm Tube) 0.5 inch EXT Q6H [facility] Stop: 10/04/20 04:59 Last Admin: 09/04/20 11:15 Dose: 0.5 inch Documented by: Resident Activity Tracking Resident Involvement: Resident Care Provided Care Provided: Adult Hospital Medicine
[2020-09-04] MEDS: hydrALAZINE TAB 50 MG TAB PO SCH ×2 (13:19→20:09)
[2020-09-04] MEDS: hydrALAZINE HCL 25 MG TAB PO SCH ×2 (13:19→20:09)
--- NOTE | 2020-09-04 14:20 | Billing Data ---
Date of Service September 04, 2020 Coding Level of Care Code 16669 Subseq Hosp Care Lvl 2
[2020-09-04] MEDS ORDERED: Nursing to Pharmacy Communication SCH (16:45)
[2020-09-04] MEDS: ATORVASTATIN 40 MG TAB PO SCH (20:07)
[2020-09-04] MEDS: APIXABAN 5 MG TABLET PO SCH (20:07)
[2020-09-04] MEDS: BUMETANIDE 1 MG TAB PO SCH (20:08)
[2020-09-04] MEDS: METOPROLOL SUCC 50MG EXT REL TAB PO SCH (20:08)
[2020-09-04] MEDS: ASPIRIN 81 MG ECTAB PO SCH (20:09)
[2020-09-05] MEDS: INSULIN ASPART 100 UNITS/ML 3 ML PEN SC SCH ×5 (00:10→22:37)
[2020-09-05] MEDS: SODIUM CHLORIDE 0.9% 1000ML 1,000 ML IV SCH (00:31)
--- NOTE | 2020-09-05 02:08 | Billing Data ---
Date of Service September 05, 2020 Coding Level of Care Code 10621 Initial Inpt Care Lvl 3
[2020-09-05] MEDS: NITROGLYCERIN 2% OINTMENT 30GM TUBE EXT SCH ×2 (05:11→10:27)
[2020-09-05 06:41] LABS: BUN Creatinine Ratio 11.6 (10-20); Calcium 7.8 mg/dl (8.5-10.1); Creatinine Clr Calc Pharmacy 23.7 ml/min; Est GFR (African American) 23.8; Est GFR (Non-African American) 20.5
--- NOTE | 2020-09-05 08:11 | Surgery Progress Note ---
Date of Service September 05, 2020 Assessment & Plan (1) Ileus: improved will start on clears as above. looks/feels much better. +loose bm's. no nausea. xray improving. will start clears. increase activity. incisions look good. Admission and Anticipated Discharge Date Admission Date: September 04, 2020 Subjective no nausea, having liquid BMs Physical Exam Gastrointestinal (Abdomen): Inspection/Auscultation: abdomen not distended Percussion/Palpation: abdomen soft; abdomen nontender Results & Data ([facility]) Vital Signs (Past 12 Hours) Vital Signs Temp Pulse Resp BP Pulse Ox 09/05/20 07:08 36.9 C 63 18 167/53 H 97 09/05/20 00:23 37.4 C 64 16 157/65 H 98 09/04/20 22:56 37.1 C 68 20 125/54 L 92 PG Care Time/CCT Total # of Minutes Spent Total Time Spent with Patient: Total time spent is greater than 50% in coordination of care (as documented) at patient's floor/unit and/or counseling patient: Coding Level of Care Code None Diagnoses Ileus K56.7
[2020-09-05 08:24] LABS: Eosinophils # (auto) 0.14 K/uL (0-0.5); Eosinophils % (auto) 3.5 %; Hematocrit (blood only) 26.3 % (37-47); Hemoglobin 8.4 g/dL (12.0-16.0); Lymphocytes # (auto) 0.63 K/uL (1.2-3.4); Lymphocytes % (auto) 15.8 %; Mean Corpuscular Hemoglobin 32.7 pg (25-34); Mean Corpuscular Hgb Conc 31.9 g/dL (32-36); Mean Corpuscular Volume 102.3 fL (80-100); Mean Platelet Volume 9.2 fL (7.4-10.4); Monocytes # (auto) 0.45 K/uL (0.11-0.59); Monocytes % (auto) 11.3 %; Neutrophils # (auto) 2.77 K/uL (1.4-6.5); Neutrophils % (auto) 69.4 %; Platelet Count 162 K/uL (130-400); RDW Coefficient of Variation 15.1 % (11.5-14.5); Red Blood Count 2.57 M/uL (4.2-5.4); White Blood Count 3.99 K/uL (4.8-10.8)
[2020-09-05] MEDS: LACTATED RINGER'S 1,000 ML IV SCH ×2 (08:46→17:33)
--- NOTE | 2020-09-05 09:03 | XRay Report ---
KUB HISTORY: Acute generalized abdominal pain with ileus eval post op ileus COMPARISON: CT abdomen pelvis 09/04/2020 FINDINGS: Skin pamela overlie the midline abdomen. Distended air-filled loops of small bowel. No pne umoperitoneum. Left nephrolithiasis better seen on comparison CT. Cardiomegaly. Degenerative changes of the spine, pelvis and hips. IMPRESSION: Distended air-filled loops of small bowel suggestive of postoperative ileus versus obstruction. Follo w-up recommended. ACT 112: Negative or not required by law. The above report was generated using voice recognition software. It may contain grammatical, syntax o r spelling errors. Electronically signed by: Man Alvarado M.D. 09/05/2020 9:02 AM
[2020-09-05] MEDS: hydrALAZINE HCL 25 MG TAB PO SCH ×3 (09:07→21:11)
[2020-09-05] MEDS: ISOSORBIDE MONO EXTENDED REL 30 MG TABCR PO SCH (09:07)
[2020-09-05] MEDS: METOPROLOL SUCC 50MG EXT REL TAB PO SCH ×2 (09:07→21:11)
[2020-09-05] MEDS: APIXABAN 5 MG TABLET PO SCH ×2 (09:08→21:09)
[2020-09-05] MEDS: BUMETANIDE 1 MG TAB PO SCH ×3 (09:08→21:10)
[2020-09-05] MEDS: hydrALAZINE TAB 50 MG TAB PO SCH ×3 (09:08→21:11)
[2020-09-05] MEDS: ISOSORBIDE MONO EXTENDED REL 60 MG TABCR PO SCH (09:08)
[2020-09-05] MEDS ORDERED: Nursing to Pharmacy Communication SCH (09:30)
--- NOTE | 2020-09-05 12:53 | Hospitalist Progress Note ---
Date of Service September 05, 2020 Assessment & Plan (1) Ileus: Patricia Unger is a 80-year-old female with past medical history significant for type 2 diabetes, chronic kidney disease, coronary artery disease, DVTs, s/p right hemicolectomy (08/26); presents to the ER for concerns of inability to tolerate oral intake with nausea, vomiting, and diarrhea over the last several days. Ileus/SBO: -CT abdomen pelvis demonstrating concern for ileus/small bowel obstruction -Patient is status post right hemicolectomy (08/26). Likely swelling at her anastomosis causing a functional partial small bowel obstruction -Was taking hydrocodone/acetaminophen following discharge, also took Imodium -KUB 09/05 showed improving -Started on clears, will advance as tolerated -IVF LR at 125 mls/hr. Will d/c tomorrow if pt tolerates diet and Cr improving -General surgery consulted appreciated Thrombocytopenia-resolved -Platelets 91 on admission, with appearance of previous platelets > 190 earlier in the week -Uncertain etiology of this drop, consideration of heparin-induced thrombocytopenia given patient's recent hospitalization with utilization of Lovenox -4 T score indicating intermediate probability of heparin-induced thrombocytopenia. Heparin antibodies ordered -Repeat CBCs showing normal plts Acute kidney injury on CKD: -Baseline Cr approximately 1.8 -Cr on admission of 2.57, today improved 2.21 -Likely in the scenario of dehydration given persistent diarrhea and nausea and vomiting -LR@125/hr as above Diarrhea-improved -Recent antibiotic course of Bactrim- following discharge for UTI -C. difficile testing ordered Type 2 diabetes: -Sliding scale insulin ordered -BSG ACHS CAD/HTN -Cont PO atorvastatin, ASA, isosorbide mononitrate, metoprolol succinate, hydralazine as directed -IV Hydralazine 10 mg q4h PRN for SBP>170 History of DVT: -DVT originally noted in March, with continuation noted in July of this year -restarted home Eliquis 5 mg BID Diet: LR at 125. Clears DVT Prophylaxis: Eliquis CODE STATUS: Full code Dispo: Downgrade to med surg Admission and Anticipated Discharge Date Admission Date: September 04, 2020 Supervising Physician Co-Signing Physician Notes I personally examined the patient and verified all anthony points of history and exam, discussed case, and agree with decision making with Dr Whatley. tolerated clear liquids well. belly generally feeling a bit better. Vitals noted, in general she is awake and alert pleasant no distress. HEENT normocephalic atraumatic mucous membranes moist. Breathing unlabored no accessory muscle use good effort. abd soft nd nt no guarding. Skin shows no rashes no pallor or icterus. Neuro shows no focal deficits. Ileusstable, unlikely to need surgical intervention, continue conservative care, advance diet slowly - but showing improvement Otherwise as above. Subjective Seen at bedside, no acute overnight events. Pt states still feels better. Appet ite today and will start clears. Has had a BM and started passing gas since admission. No N/V/D. No other acute concerns or complaints. Review of Systems Review of Systems: All systems reviewed & are unremarkable except as noted in HPI & below Physical Exam Constitutional: WD/WN, vitals as above Eyes: PERRL, conjunctivae normal, anicteric sclerae ENMT: external ear and nose normal, oropharynx normal Respiratory: normal respiratory effort, lungs clear to auscultation Cardiovascular: RRR, no murmur, no edema Gastrointestinal (Abdomen): Inspection/Auscultation: + abdominal surgical incision (C/D/I); abdomen not distended Percussion/Palpation: abdomen soft; abdomen nontender and no guarding Skin: no rashes, warm and dry Psychiatric: A+Ox3, euthymic affect Results & Data Results & Data ([facility]) Vital Signs (Past 12 Hours) Vital Signs Temp Pulse Resp BP Pulse Ox 09/05/20 10:24 68 130/47 L 96 09/05/20 07:08 36.9 C 63 18 167/53 H 97 Laboratory Results Laboratory Results - last 24 hr 09/04/20 09/05/20 09/05/20 18:07 00:07 03:14 WBC RBC Hgb Hct MCV MCH MCHC RDW Std Deviation RDW Coeff of Kirsty Plt Count MPV Immature Gran % (Auto) Neut % (Auto) Lymph % (Auto) Schley % (Auto) Eos % (Auto) Baso % (Auto) Neut # (Auto) Lymph # (Auto) Schley # (Auto) Eos # (Auto) Baso # (Auto) Immature Gran # (Auto) Absolute Nucleated RBC Nucleated RBC % (auto) Neutrophils % (Manual) Band Neutrophils % Lymphocytes % (Manual) Prolymphocyte % Reactive Lymphs % (Man) Monocytes % (Manual) Eosinophils % (Manual) Basophils % (Manual) Metamyelocytes % (Man) Myelocytes % (Man) Promyelocytes % (Man) Blast Cells % (Manual) Plasma Cell % (Manual) Other Cells % Nucleated RBC % Neutrophils # (Manual) Band Neutrophils # Total Absolute Neuts Lymphocytes # (Manual) Prolymphocyte # Reactive Lymphs # Total Abs Lymphocytes Monocytes # (Manual) Eosinophils # (Manual) Basophils # (Manual) Metamyelocytes # (Man) Myelocytes # (Manual) Promyelocytes # (Man) Blast Cells # (Man) Plasma Cell # (Manual) Other Cells # Nucleated RBCs # (Man) Hypersegmented Neuts Hyposegmented Neuts Hypogranular Neuts Large Granular Lymphs # Lrg Granular Lymphs Hairy Cells Smudge Cells Toxic Granulation Toxic Vacuolation Dohle Bodies Cece Rods Platelet Estimate Hypogranular Platelets Clumped Platelets Giant Platelets Platelet Satelliting RBC Morphology Polychromasia Hypochromasia Poikilocytosis Basophilic Stippling Anisocytosis Microcytosis Macrocytosis Spherocytes Pappenheimer Bodies Sickle Cells Target Cells Tear Drop Cells Ovalocytes Stomatocytes [place] Bodies Echinocytes Acanthocytes (Spur) Rouleaux RBC Agglutinates Schistocytes RBC Morph Comment Sezary Cell Sodium Potassium Chloride Carbon Dioxide Anion Gap BUN Creatinine Est Cr Clr Drug Dosing Est GFR ( Amer) Est GFR (Non-Af Amer) BUN/Creatinine Ratio Glucose POC Glucose 79 81 Calcium Serotonin Release Assay Stl C. diff Tox B Gene Negative Cdiff Gene Heparin Depend Plt Ab 09/05/20 09/05/20 09/05/20 05:11 05:11 05:11 WBC Cancelled RBC Cancelled Hgb Cancelled Hct Cancelled MCV Cancelled MCH Cancelled MCHC Cancelled RDW Std Deviation Cancelled RDW Coeff of Kirsty Cancelled Plt Count Cancelled MPV Cancelled Immature Gran % (Auto) Cancelled Neut % (Auto) Cancelled Lymph % (Auto) Cancelled Schley % (Auto) Cancelled Eos % (Auto) Cancelled Baso % (Auto) Cancelled Neut # (Auto) Cancelled Lymph # (Auto) Cancelled Schley # (Auto) Cancelled Eos # (Auto) Cancelled Baso # (Auto) Cancelled Immature Gran # (Auto) Cancelled Absolute Nucleated RBC Cancelled Nucleated RBC % (auto) Cancelled Neutrophils % (Manual) Cancelled Band Neutrophils % Cancelled Lymphocytes % (Manual) Cancelled Prolymphocyte % Cancelled Reactive Lymphs % (Man) Cancelled Monocytes % (Manual) Cancelled Eosinophils % (Manual) Cancelled Basophils % (Manual) Cancelled Metamyelocytes % (Man) Cancelled Myelocytes % (Man) Cancelled Promyelocytes % (Man) Cancelled Blast Cells % (Manual) Cancelled Plasma Cell % (Manual) Cancelled Other Cells % Cancelled Nucleated RBC % Cancelled Neutrophils # (Manual) Cancelled Band Neutrophils # Cancelled Total Absolute Neuts Cancelled Lymphocytes # (Manual) Cancelled Prolymphocyte # Cancelled Reactive Lymphs # Cancelled Total Abs Lymphocytes Cancelled Monocytes # (Manual) Cancelled Eosinophils # (Manual) Cancelled Basophils # (Manual) Cancelled Metamyelocytes # (Man) Cancelled Myelocytes # (Manual) Cancelled Promyelocytes # (Man) Cancelled Blast Cells # (Man) Cancelled Plasma Cell # (Manual) Cancelled Other Cells # Cancelled Nucleated RBCs # (Man) Cancelled Hypersegmented Neuts Cancelled Hyposegmented Neuts Cancelled Hypogranular Neuts Cancelled Large Granular Lymphs Cancelled # Lrg Granular Lymphs Cancelled Hairy Cells Cancelled Smudge Cells Cancelled Toxic Granulation Cancelled Toxic Vacuolation Cancelled Dohle Bodies Cancelled Cece Rods Cancelled Platelet Estimate Cancelled Hypogranular Platelets Cancelled Clumped Platelets Cancelled Giant Platelets Cancelled Platelet Satelliting Cancelled RBC Morphology Cancelled Polychromasia Cancelled Hypochromasia Cancelled Poikilocytosis Cancelled Basophilic Stippling Cancelled Anisocytosis Cancelled Microcytosis Cancelled Macrocytosis Cancelled Spherocytes Cancelled Pappenheimer Bodies Cancelled Sickle Cells Cancelled Target Cells Cancelled Tear Drop Cells Cancelled Ovalocytes Cancelled Stomatocytes Cancelled [place] Bodies Cancelled Echinocytes Cancelled Acanthocytes (Spur) Cancelled Rouleaux Cancelled RBC Agglutinates Cancelled Schistocytes Cancelled RBC Morph Comment Cancelled Sezary Cell Cancelled Sodium 142 Potassium 5.0 Chloride 119 H Carbon Dioxide 19 L Anion Gap 4.0 BUN 26 H Creatinine 2.21 H Est Cr Clr Drug Dosing 23.7 Est GFR ( Amer) 23.8 Est GFR (Non-Af Amer) 20.5 BUN/Creatinine Ratio 11.6 Glucose 65 L POC Glucose Calcium 7.8 L Serotonin Release Assay Cancelled Stl C. diff Tox B Gene Heparin Depend Plt Ab Cancelled 09/05/20 09/05/20 09/05/20 05:37 06:43 08:02 WBC 3.99 L RBC 2.57 L Hgb 8.4 L Hct 26.3 L MCV 102.3 H MCH 32.7 MCHC 31.9 L RDW Std Deviation 55.0 H RDW Coeff of Kirsty 15.1 H Plt Count 162 MPV 9.2 Immature Gran % (Auto) 0.0 Neut % (Auto) 69.4 Lymph % (Auto) 15.8 Schley % (Auto) 11.3 Eos % (Auto) 3.5 Baso % (Auto) 0.0 Neut # (Auto) 2.77 Lymph # (Auto) 0.63 L Schley # (Auto) 0.45 Eos # (Auto) 0.14 Baso # (Auto) 0.00 Immature Gran # (Auto) 0.00 Absolute Nucleated RBC Nucleated RBC % (auto) Neutrophils % (Manual) Band Neutrophils % Lymphocytes % (Manual) Prolymphocyte % Reactive Lymphs % (Man) Monocytes % (Manual) Eosinophils % (Manual) Basophils % (Manual) Metamyelocytes % (Man) Myelocytes % (Man) Promyelocytes % (Man) Blast Cells % (Manual) Plasma Cell % (Manual) Other Cells % Nucleated RBC % Neutrophils # (Manual) Band Neutrophils # Total Absolute Neuts Lymphocytes # (Manual) Prolymphocyte # Reactive Lymphs # Total Abs Lymphocytes Monocytes # (Manual) Eosinophils # (Manual) Basophils # (Manual) Metamyelocytes # (Man) Myelocytes # (Manual) Promyelocytes # (Man) Blast Cells # (Man) Plasma Cell # (Manual) Other Cells # Nucleated RBCs # (Man) Hypersegmented Neuts Hyposegmented Neuts Hypogranular Neuts Large Granular Lymphs # Lrg Granular Lymphs Hairy Cells Smudge Cells Toxic Granulation Toxic Vacuolation Dohle Bodies Cece Rods Platelet Estimate Hypogranular Platelets Clumped Platelets Giant Platelets Platelet Satelliting RBC Morphology Polychromasia Hypochromasia Poikilocytosis Basophilic Stippling Anisocytosis Microcytosis Macrocytosis Spherocytes Pappenheimer Bodies Sickle Cells Target Cells Tear Drop Cells Ovalocytes Stomatocytes [place] Bodies Echinocytes Acanthocytes (Spur) Rouleaux RBC Agglutinates Schistocytes RBC Morph Comment Sezary Cell Sodium Potassium Chloride Carbon Dioxide Anion Gap BUN Creatinine Est Cr Clr Drug Dosing Est GFR ( Amer) Est GFR (Non-Af Amer) BUN/Creatinine Ratio Glucose POC Glucose 74 Calcium Serotonin Release Assay Pending Stl C. diff Tox B Gene Heparin Depend Plt Ab Pending 09/05/20 12:11 WBC RBC Hgb Hct MCV MCH MCHC RDW Std Deviation RDW Coeff of Kirsty Plt Count MPV Immature Gran % (Auto) Neut % (Auto) Lymph % (Auto) Schley % (Auto) Eos % (Auto) Baso % (Auto) Neut # (Auto) Lymph # (Auto) Schley # (Auto) Eos # (Auto) Baso # (Auto) Immature Gran # (Auto) Absolute Nucleated RBC Nucleated RBC % (auto) Neutrophils % (Manual) Band Neutrophils % Lymphocytes % (Manual) Prolymphocyte % Reactive Lymphs % (Man) Monocytes % (Manual) Eosinophils % (Manual) Basophils % (Manual) Metamyelocytes % (Man) Myelocytes % (Man) Promyelocytes % (Man) Blast Cells % (Manual) Plasma Cell % (Manual) Other Cells % Nucleated RBC % Neutrophils # (Manual) Band Neutrophils # Total Absolute Neuts Lymphocytes # (Manual) Prolymphocyte # Reactive Lymphs # Total Abs Lymphocytes Monocytes # (Manual) Eosinophils # (Manual) Basophils # (Manual) Metamyelocytes # (Man) Myelocytes # (Manual) Promyelocytes # (Man) Blast Cells # (Man) Plasma Cell # (Manual) Other Cells # Nucleated RBCs # (Man) Hypersegmented Neuts Hyposegmented Neuts Hypogranular Neuts Large Granular Lymphs # Lrg Granular Lymphs Hairy Cells Smudge Cells Toxic Granulation Toxic Vacuolation Dohle Bodies Cece Rods Platelet Estimate Hypogranular Platelets Clumped Platelets Giant Platelets Platelet Satelliting RBC Morphology Polychromasia Hypochromasia Poikilocytosis Basophilic Stippling Anisocytosis Microcytosis Macrocytosis Spherocytes Pappenheimer Bodies Sickle Cells Target Cells Tear Drop Cells Ovalocytes Stomatocytes [place] Bodies Echinocytes Acanthocytes (Spur) Rouleaux RBC Agglutinates Schistocytes RBC Morph Comment Sezary Cell Sodium Potassium Chloride Carbon Dioxide Anion Gap BUN Creatinine Est Cr Clr Drug Dosing Est GFR ( Amer) Est GFR (Non-Af Amer) BUN/Creatinine Ratio Glucose POC Glucose 118 H Calcium Serotonin Release Assay Stl C. diff Tox B Gene Heparin Depend Plt Ab Medications Administered Current Inpatient Medications Apixaban (Apixaban 5 Mg Tablet) 5 mg PO BID [facility] Stop: 10/04/20 20:59 Last Admin: 09/05/20 09:08 Dose: 5 mg Documented by: Aspirin (Aspirin 81 Mg Ectab) 81 mg PO QPM [facility] Stop: 10/04/20 20:59 Last Admin: 09/04/20 20:09 Dose: 81 mg Documented by: Atorvastatin Calcium (Atorvastatin 40 Mg Tab) 40 mg PO HS [facility] Stop: 10/04/20 20:59 Last Admin: 09/04/20 20:07 Dose: 40 mg Documented by: Bumetanide (Bumetanide 1 Mg Tab) 0.5 mg PO QPM [facility] Stop: 10/04/20 20:59 Last Admin: 09/04/20 20:08 Dose: 0.5 mg Documented by: Bumetanide (Bumetanide 1 Mg Tab) 1 mg PO QAM [facility] Stop: 10/05/20 08:59 Last Admin: 09/05/20 09:08 Dose: 1 mg Documented by: Bumetanide (Bumetanide 1 Mg Tab) 0.5 mg PO QDL [facility] Stop: 10/05/20 11:29 Last Admin: 09/05/20 12:05 Dose: 0.5 mg Documented by: Dextrose (Dextrose 50% 50 Ml Syringe) 25 - 50 ml IV UD PRN; Protocol PRN Reason: Hypoglycemia Protocol Stop: 10/04/20 05:12 Glucagon (Glucagon For Inj 1 Mg Vial) 1 mg SQ UD PRN; Protocol PRN Reason: Hypoglycemia Protocol Stop: 10/04/20 05:12 Glucose (Glucose 10 Tabs/Tube) 4 - 8 tabs PO UD PRN; Protocol PRN Reason: Hypoglycemia Protocol Stop: 10/04/20 05:12 Glucose (Glucose 40% Gel 15 Gm Tube) 15 - 30 gm PO UD PRN; Protocol PRN Reason: Hypoglycemia Protocol Stop: 10/04/20 05:12 Hydralazine HCl (Hydralazine Hcl 20 Mg/Ml Vial) 10 mg IV Q4H PRN PRN Reason: SBP>170 Stop: 10/04/20 05:12 Hydralazine HCl (Hydralazine Hcl 25 Mg Tab) 25 mg PO TID [facility] Stop: 10/04/20 13:59 Last Admin: 09/05/20 09:07 Dose: 25 mg Documented by: Hydralazine HCl (Hydralazine Tab 50 Mg Tab) 50 mg PO TID [facility] Stop: 10/04/20 13:59 Last Admin: 09/05/20 09:08 Dose: 50 mg Documented by: Lactated Ringer's (Lr) 1,000 mls @ 125 mls/hr IV .Q8H [facility] Stop: 10/05/20 08:44 Last Infusion: 09/05/20 09:40 Dose: 125 mls/hr Documented by: Insulin Aspart (Insulin Aspart 100 Units/Ml 3 Ml Pen) 0 units SC ACHS [facility] Stop: 10/05/20 11:29 Last Admin: 09/05/20 12:29 Dose: Not Given Documented by: Isosorbide Mononitrate (Isosorbide Schley Extended Rel 30 Mg Tabcr) 30 mg PO QAM [facility] Stop: 10/05/20 08:59 Last Admin: 09/05/20 09:07 Dose: 30 mg Documented by: Isosorbide Mononitrate (Isosorbide Schley Extended Rel 60 Mg Tabcr) 60 mg PO QAM [facility] Stop: 10/05/20 08:59 Last Admin: 09/05/20 09:08 Dose: 60 mg Documented by: Metoprolol Succinate (Metoprolol Succ 50mg Ext Rel Tab) 150 mg PO BID [facility] Stop: 10/04/20 20:59 Last Admin: 09/05/20 09:07 Dose: 150 mg Documented by: Miscellaneous (Carbohydrates For Hypoglycemia ) 15 - 30 gm PO UD PRN PRN Reason: Hypoglycemia Protocol Stop: 10/04/20 05:12 Nitroglycerin (Nitroglycerin 2% Ointment 30gm Tube) 0.5 inch EXT Q6H [facility] Stop: 10/04/20 04:59 Last Admin: 09/05/20 10:27 Dose: 0.5 inch Documented by: Ondansetron HCl (Ondansetron Inj 2 Mg/Ml 2 Ml Vial) 4 mg IV Q6H PRN PRN Reason: Nausea And Vomiting Stop: 10/04/20 12:25 Resident Activity Tracking Resident Involvement: Resident Care Provided Care Provided: Adult Hospital Medicine
--- NOTE | 2020-09-05 15:03 | Billing Data ---
Date of Service September 05, 2020 Coding Level of Care Code 32896 Subseq Hosp Care Lvl 2
--- NOTE | 2020-09-05 21:04 | Electrocardiogram Report ---
Test Reason : Blood Pressure : / mmHG Vent. Rate : 067 BPM Atrial Rate : 067 BPM P-R Int : 152 ms QRS Dur : 100 ms QT Int : 420 ms P-R-T Axes : -10 -34 056 degrees QTc Int : 443 ms Poor data quality, interpretation may be adversely affected Normal sinus rhythm with sinus arrhythmia Left axis deviation Possible Anterior infarct , age undetermined Abnormal ECG When compared with ECG of 03-AUG-2020 09:46, No significant change was found Confirmed by Irvin Barrera ([id number]) on 09/05/2020 9:03:56 PM Referred By: Sohail Quiroga Confirmed By:Irvin Barrera
[2020-09-05] MEDS: ASPIRIN 81 MG ECTAB PO SCH (21:10)
[2020-09-05] MEDS: ATORVASTATIN 40 MG TAB PO SCH (21:11)
--- NOTE | 2020-09-05 21:13 | Electrocardiogram Report ---
Test Reason : Blood Pressure : / mmHG Vent. Rate : 061 BPM Atrial Rate : 060 BPM P-R Int : 000 ms QRS Dur : 116 ms QT Int : 450 ms P-R-T Axes : 000 -27 064 degrees QTc Int : 453 ms Sinus rhythm Nonspecific ST abnormality Abnormal ECG When compared with ECG of 03-SEP-2020 22:18, (unconfirmed) No significant change Confirmed by Irvin Barrera ([id number] on 09/05/2020 9:13:05 PM Referred By: Sohail Quiroga Confirmed By:Irvin Barrera
[2020-09-06] MEDS: LACTATED RINGER'S 1,000 ML IV SCH (01:52)
[2020-09-06 06:11] LABS: Eosinophils # (auto) 0.11 K/uL (0-0.5); Hematocrit (blood only) 23.5 % (37-47); Hemoglobin 7.7 g/dL (12.0-16.0); Lymphocytes # (auto) 0.55 K/uL (1.2-3.4); Mean Corpuscular Hemoglobin 32.9 pg (25-34); Mean Corpuscular Hgb Conc 32.8 g/dL (32-36); Mean Corpuscular Volume 100.4 fL (80-100); Mean Platelet Volume 9.6 fL (7.4-10.4); Monocytes # (auto) 0.33 K/uL (0.11-0.59); Neutrophils # (auto) 2.67 K/uL (1.4-6.5); Platelet Count 163 K/uL (130-400); RDW Coefficient of Variation 14.7 % (11.5-14.5); RDW Standard Deviation 52.9 fL (36.4-46.3); Red Blood Count 2.34 M/uL (4.2-5.4); White Blood Count 3.66 K/uL (4.8-10.8)
[2020-09-06 06:41] LABS: Toxic Granulation 1+
[2020-09-06 06:52] LABS: BUN Creatinine Ratio 12.4 (10-20); Calcium 7.7 mg/dl (8.5-10.1); Creatinine Clr Calc Pharmacy 29.1 ml/min; Est GFR (African American) 30.5; Est GFR (Non-African American) 26.3; Potassium 4.5 mmol/L (3.5-5.1)
[2020-09-06] MEDS: hydrALAZINE HCL 25 MG TAB PO SCH ×3 (08:39→21:09)
[2020-09-06] MEDS: ISOSORBIDE MONO EXTENDED REL 30 MG TABCR PO SCH (08:39)
[2020-09-06] MEDS: hydrALAZINE TAB 50 MG TAB PO SCH ×3 (08:41→21:09)
[2020-09-06] MEDS: BUMETANIDE 1 MG TAB PO SCH ×3 (08:41→21:10)
[2020-09-06] MEDS: ISOSORBIDE MONO EXTENDED REL 60 MG TABCR PO SCH (08:41)
[2020-09-06] MEDS: METOPROLOL SUCC 50MG EXT REL TAB PO SCH ×2 (08:42→21:09)
[2020-09-06] MEDS: APIXABAN 5 MG TABLET PO SCH ×2 (08:42→21:21)
--- NOTE | 2020-09-06 08:42 | Emergency Department Note ---
History of Present Illness General Chief complaint: Diarrhea Stated complaint: NVD, S/P COLON RESECTION, DR ALBERTO Time Seen by Provider: 09/03/20 21:54 Source: patient Mode of arrival: ambulatory Limitations: no limitations History of Present Illness This patient is a 80-year-old female who presents to the emergency department for evaluation of nausea, vomiting and diarrhea. She states that she recently had a bowel resection on 08/[address] Quiroga. She was discharged a few days ago. She states she was feeling okay this morning and was able to eat some tea and toast, but after lunch she started vomiting. She has been vomiting since then. She has had some severe diarrhea intermittently since she had her surgery. She does feel generally weak. She has had some intermittent abdominal cramping but denies pain at this time. She denies any fevers. Home Medications Medication Instructions Recorded Confirmed Type cyanocobalamin (vitamin B-12) 1,000 mcg PO QAM 12/28/17 09/03/20 History fluticasone propionate [Flonase 2 spray INTRANASAL DAILY PRN 12/28/17 09/03/20 History Allergy Relief] magnesium oxide 400 mg PO BID 12/28/17 09/03/20 History omega 7-gww-bjg-fish oil [Fish Oil] 1 cap PO QPM 12/28/17 09/03/20 History fexofenadine 60 mg tablet 60 mg PO DAILY PRN 10/02/18 09/03/20 History pen needle, diabetic 31 gauge x #30 ea 11/22/18 08/06/20 History 5/16" tamoxifen 20 mg tablet 20 mg PO HS 04/25/19 09/03/20 History potassium chloride 20 mEq 20 meq PO QAM #90 tab 10/23/19 09/03/20 Rx tablet,extended release(part/cryst) insulin glargine 100 unit/mL 60 unit SUBCUT HS 90 Days #54 ml 11/26/19 09/03/20 Rx subcutaneous solution alendronate 70 mg tablet 70 mg PO WEEKLY #12 tab 05/10/20 09/03/20 Rx bumetanide 0.5 mg PO QDL 06/21/20 09/03/20 History bumetanide 1 mg PO QAM 06/21/20 09/03/20 History cilostazol 100 mg PO BID 06/21/20 09/03/20 History hydralazine 25 mg PO TID 06/21/20 09/03/20 History hydralazine 50 mg PO TID 06/21/20 09/03/20 History insulin aspart U-100 [Novolog 0 unit SQ TID 06/21/20 09/03/20 History Flexpen U-100 Insulin] isosorbide mononitrate 30 mg PO QAM 06/21/20 09/03/20 History isosorbide mononitrate 60 mg PO QAM 06/21/20 09/03/20 History apixaban 5 mg tablet 5 mg PO BID #60 tab 07/11/20 09/03/20 Rx aspirin 81 mg tablet,delayed 81 mg PO QPM 07/15/20 09/03/20 History release metoprolol succinate 100 mg 150 mg PO BID #270 tab 07/15/20 09/03/20 Rx tablet,extended release 24 hr bumetanide 0.5 mg tablet 0.5 mg PO QPM #90 tab 07/27/20 09/03/20 Rx nystatin 100,000 unit/gram topical 1 applic TOPICAL BID #30 g 08/06/20 09/03/20 Rx powder atorvastatin 40 mg PO HS 08/12/20 09/03/20 History diclofenac sodium [Voltaren] 2 g TOPICAL BID PRN 08/12/20 09/03/20 History ondansetron HCl [Zofran] 4 mg PO Q8H PRN 4 Days #12 tab 08/31/20 09/03/20 Rx hydrocodone-acetaminophen 1 - 2 tab PO .q4h- q6h PRN #15 tab 09/01/20 09/03/20 Rx sulfamethoxazole-trimethoprim 1 tab PO Q12H 3 Days #5 tab 09/01/20 09/03/20 Rx [Bactrim DS] cholestyramine-aspartame 4 gram 2 g PO TID #210 g 09/02/20 09/03/20 Rx oral powder Allergies Allergy/AdvReac Type Severity Reaction Status Date / Time diclofenac Allergy Mild ankle Verified 09/04/20 07:17 swelling JESSICA Inhibitors AdvReac Intermediate ARF Verified 09/03/20 22:12 iron AdvReac Mild nausea/ Verified 09/03/20 22:12 VOMITING Past Med/Surg History Medical History CAD (coronary artery disease) s/p 3 vessel CABG 2006 Chronic kidney disease STAGE 3-F/U DR LIND Last seen by nephro 07/20/20- kidney function stable at that time DVT (deep venous thrombosis) Right upper leg DVT -- March 2020 -- placed on eliquis.-NO ISSUES SINCE Recent u/s from 07/07/20= shows continued evidence of right common femoral DVT. Hx of acute respiratory failure WITH GB SURG 04/21/09 [facility] POST OP RESPIRATORY FAILURE-HAD TO BE VENTILATED,EXTUBATED NEXT DAY-PER PT SLOW TO WAKE UP IN GENERAL Right breast partial mastectomy 08/29/18 under [place] with LMA #4 x 3 attempts- atraumatic with good seal- no other issues noted Hx of breast cancer right breast (Jun 2018). surgical intervention + radiation therapy Hyperlipidemia Hypertension Lumbar spinal stenosis Osteoarthritis Peripheral vascular disease On Pletal Type 2 diabetes, controlled, with renal manifestation Venous stasis dermatitis LLE Surgical History History of adverse response to anesthesia SLOW TO WAKE. PT HAD RESP FAILURE S/P KYLAH IN 2008 History of bilateral tubal ligation History of cardiac cath 2006 NO STENTS-[facility] History of cataract surgery BL History of cholecystectomy History of coronary artery bypass graft 3 [place] 2006[place] [place] History of dilatation and curettage History of esophagogastroduodenoscopy (EGD) History of Moh's micrographic surgery for skin cancer History of partial mastectomy of right breast History of total knee replacement LEFT 2017. S/P epidural steroid injection S/P laparoscopic colectomy (08/26/20) Laparoscopic Extended Hemicolectomy, Extensive enterolysis - Sohail Quiroga, S/P tendon repair R ARM Status post dilation and curettage 08/26/20 Dr. Cathy Calderon- Hysteroscopy, Dilation and Curettage, Possible Polypectomy Status post trigger finger release X2 Family History Mother , age 38 heart disease due to rheumatic fever No problems noted. Father , age 73 heart disease No problems noted. Sister No problems noted. Sister No problems noted. Sister No problems noted. Sister No problems noted. Sister No problems noted. Daughter Myocardial infarction Breast cancer Family history of reaction to anesthesia SLOW TO WAKE UP/PONV Daughter Heart disease Other No family history of adverse response to anesthesia Denies family history of Ovarian cancer Prostate cancer Colorectal cancer Social History Smoking Status: Never smoker Second Hand Exposure: Yes (SPOUSE SMOKED); Hx Alcohol Use: Yes Alcohol type: hard liquor Hx Substance Use: No Preferred Language: Amharic Communication Ability: Effective Visual Impairment: No Limitations Branch Maker Required: No Beliefs That Will Affect Care: None marital status: / Current Living Situation: Alone Feels Safe at Home: Yes Safety Concerns: Feels Safe At This Time Dental Care, Regularly: No Seatbelt Use: always Assistive Devices: None Review of Systems A total of 10 systems reviewed and were otherwise negative Physical Exam VITALS: Vitals are noted on the nurse's note and reviewed by myself. GENERAL: This is a 80-year-old female, in no acute distress, nondiaphoretic. SKIN: The skin was without rashes. EARS: External auditory canals clear, tympanic membranes pearly mejía without erythema or effusion bilaterally. EYES: Pupils equal round and reactive to light and accommodation. MOUTH: Mucous membranes moist. Tonsils are not enlarged. Pharynx without charlotte thema or exudate. NECK: Supple without nuchal rigidity. No lymphadenopathy. HEART: Regular rate and rhythm without murmurs gallops or rubs. LUNGS: Clear to auscultation bilaterally without wheezes, rales or rhonchi. ABDOMEN: Distended abdomen. Hypoactive bowel sounds. No significant tenderness to palpation. No guarding or rebound tenderness. NEURO: Patient was alert and oriented to person place and time. Course Administered Medications Apixaban (Apixaban 5 Mg Tablet) 5 mg PO BID [facility] Stop: 10/04/20 20:59 Last Admin: 09/05/20 21:09 Dose: 5 mg Documented by: [id number] Admin: 09/05/20 09:08 Dose: 5 mg Documented by: [id number] Admin: 09/04/20 20:07 Dose: 5 mg Documented by: [id number] Aspirin (Aspirin 81 Mg Ectab) 81 mg PO QPM TRISH Stop: 10/04/20 20:59 Last Admin: 09/05/20 21:10 Dose: 81 mg Documented by: [id number] Admin: 09/04/20 20:09 Dose: 81 mg Documented by: [id number] Atorvastatin Calcium (Atorvastatin 40 Mg Tab) 40 mg PO HS [facility] Stop: 10/04/20 20:59 Last Admin: 09/05/20 21:11 Dose: 40 mg Documented by: [id number] Admin: 09/04/20 20:07 Dose: 40 mg Documented by: [id number] Bumetanide (Bumetanide 1 Mg Tab) 0.5 mg PO QPM RTISH Stop: 10/04/20 20:59 Last Admin: 09/05/20 21:10 Dose: 0.5 mg Documented by: [id number] Admin: 09/04/20 20:08 Dose: 0.5 mg Documented by: [id number] Bumetanide (Bumetanide 1 Mg Tab) 1 mg PO QAM [facility] Stop: 10/05/20 08:59 Last Admin: 09/05/20 09:08 Dose: 1 mg Documented by: [id number] Bumetanide (Bumetanide 1 Mg Tab) 0.5 mg PO QDL [facility] Stop: 10/05/20 11:29 Last Admin: 09/05/20 12:05 Dose: 0.5 mg Documented by: [id number] Hydralazine HCl (Hydralazine Hcl 25 Mg Tab) 25 mg PO TID [facility] Stop: 10/04/20 13:59 Last Admin: 09/05/20 21:11 Dose: 25 mg Documented by: [id number] Admin: 09/05/20 14:41 Dose: 25 mg Documented by: [id number] Admin: 09/05/20 09:07 Dose: 25 mg Documented by: [id number] Admin: 09/04/20 20:09 Dose: 25 mg Documented by: [id number] Admin: 09/04/20 13:19 Dose: 25 mg Documented by: [id number] Hydralazine HCl (Hydralazine Tab 50 Mg Tab) 50 mg PO TID [facility] Stop: 10/04/20 13:59 Last Admin: 09/05/20 21:11 Dose: 50 mg Documented by: [id number] Admin: 09/05/20 14:42 Dose: 50 mg Documented by: [id number] Admin: 09/05/20 09:08 Dose: 50 mg Documented by: [id number] Admin: 09/04/20 20:09 Dose: 50 mg Documented by: [id number] Admin: 09/04/20 13:19 Dose: 50 mg Documented by: [id number] Insulin Aspart (Insulin Aspart 100 Units/Ml 3 Ml Pen) 0 units SC ACHS [facility] Stop: 10/05/20 11:29 Last Admin: 09/05/20 22:37 Dose: Not Given Documented by: [id number] Cosigned by: [id number] Admin: 09/05/20 17:47 Dose: 2 units Documented by: [id number] Cosigned by: [id number] Admin: 09/05/20 12:29 Dose: Not Given Documented by: [id number] Isosorbide Mononitrate (Isosorbide [place] Extended Rel 30 Mg Tabcr) 30 mg PO QAM [facility] Stop: 10/05/20 08:59 Last Admin: 09/05/20 09:07 Dose: 30 mg Documented by: [id number] Isosorbide Mononitrate (Isosorbide [place] Extended Rel 60 Mg Tabcr) 60 mg PO QAM [facility] Stop: 10/05/20 08:59 Last Admin: 09/05/20 09:08 Dose: 60 mg Documented by: [id number] Metoprolol Succinate (Metoprolol Succ 50mg Ext Rel Tab) 150 mg PO BID [facility] Stop: 10/04/20 20:59 Last Admin: 09/05/20 21:11 Dose: Not Given Documented by: [id number] Admin: 09/05/20 09:07 Dose: 150 mg Documented by: [id number] Admin: 09/04/20 20:08 Dose: 150 mg Documented by: [id number] Discontinued Medications Sodium Chloride (Nss) 500 mls @ 999 mls/hr IV .Q31M ONE Stop: 09/03/20 22:39 Last Infusion: 09/04/20 01:48 Dose: 0 mls/hr Documented by: [id number] Admin: 09/04/20 00:56 Dose: 999 mls/hr Documented by: [id number] Promethazine HCl (Phenergan) 6.25 mg in 50.25 mls @ 201 mls/hr IV NOW STA Stop: 09/03/20 22:23 Last Admin: 09/04/20 01:04 Dose: Not Given Documented by: [id number] Sodium Chloride (Nss 1000ml) 1,000 mls @ 100 mls/hr IV .Q10H TRISH Stop: 10/04/20 05:12 Last Infusion: 09/05/20 08:46 Dose: 0 mls/hr Documented by: [id number] Admin: 09/05/20 00:31 Dose: 80 mls/hr Documented by: [id number] Infusion: 09/05/20 00:31 Dose: 80 mls/hr Documented by: [id number] Admin: 09/04/20 18:43 Dose: 80 mls/hr Documented by: [id number] Infusion: 09/04/20 18:03 Dose: 80 mls/hr Documented by: [id number] Admin: 09/04/20 05:33 Dose: 80 mls/hr Documented by: [id number] Lactated Ringer's (Lr) 1,000 mls @ 125 mls/hr IV .Q8H TRISH Stop: 10/05/20 08:44 Last Infusion: 09/06/20 07:28 Dose: 0 mls/hr Documented by: [id number] Admin: 09/06/20 01:52 Dose: 125 mls/hr Documented by: [id number] Infusion: 09/06/20 01:33 Dose: 125 mls/hr Documented by: [id number] Admin: 09/05/20 17:33 Dose: 125 mls/hr Documented by: [id number] Infusion: 09/05/20 17:14 Dose: 125 mls/hr Documented by: [id number] Infusion: 09/05/20 09:40 Dose: 125 mls/hr Documented by: [id number] Infusion: 09/05/20 09:12 Dose: 0 mls/hr Documented by: [id number] Admin: 09/05/20 08:46 Dose: 125 mls/hr Documented by: [id number] Insulin Aspart (Insulin Aspart 100 Units/Ml 3 Ml Pen) 0 units SC ACHS [facility] Stop: 10/04/20 07:29 Last Admin: 09/04/20 16:58 Dose: Not Given Documented by: [id number] Admin: 09/04/20 12:19 Dose: Not Given Documented by: [id number] Admin: 09/04/20 07:57 Dose: Not Given Documented by: [id number] Insulin Aspart (Insulin Aspart 100 Units/Ml 3 Ml Pen) 0 units SC Q6 TRISH Stop: 10/04/20 17:59 Last Admin: 09/05/20 06:37 Dose: Not Given Documented by: [id number] Admin: 09/05/20 00:10 Dose: Not Given Documented by: [id number] Cosigned by: [id number] Admin: 09/04/20 18:46 Dose: Not Given Documented by: [id number] Nitroglycerin (Nitroglycerin 2% Ointment 30gm Tube) 0.5 inch EXT Q6H TRISH Stop: 10/04/20 04:59 Last Admin: 09/05/20 10:27 Dose: 0.5 inch Documented by: [id number] Admin: 09/05/20 05:11 Dose: 0.5 inch Documented by: [id number] Admin: 09/04/20 23:26 Dose: 0.5 inch Documented by: [id number] Admin: 09/04/20 16:40 Dose: 0.5 inch Documented by: [id number] Admin: 09/04/20 11:15 Dose: 0.5 inch Documented by: [id number] Admin: 09/04/20 05:37 Dose: 0.5 inch Documented by: [id number] Promethazine HCl (Promethazine 6.25 Mg/50.25 Ml Nss) Confirm Administered Dose 6.25 mg IV .STK-MED ONE Stop: 09/04/20 00:44 Last Admin: 09/04/20 01:03 Dose: 6.25 mg Documented by: [id number] Promethazine HCl (Promethazine 12.5 Mg/50.5 Ml Nss) Confirm Administered Dose 12.5 mg IV .STK-MED ONE Stop: 09/04/20 00:58 Last Admin: 09/04/20 01:04 Dose: Not Given Documented by: [id number] Medical Decision Making Differential Diagnosis Differential diagnosis includes appendicitis, diverticulitis, bowel obstruction, inflammatory bowel disease, renal colic, PUD, biliary pathology, pancreatitis, mesenteric ischemia, aortic pathology, infection, genitourinary, UTI, perforated viscus, among others. Home Medications Current Medication List: was personally reviewed by me Laboratory Data Attestation: I reviewed the patient's lab results. Result diagrams: 09/06/20 05:35 09/06/20 05:35 Lab Results 09/04/20 09/04/20 09/04/20 Range/Units 00:33 00:33 02:25 WBC 4.08 L (4.8-10.8) K/uL RBC 2.59 L (4.2-5.4) M/uL Hgb 8.4 L (12.0-16.0) g/dL Hct 26.0 L (37-47) % MCV 100.4 H (80-100) fL MCH 32.4 (25-34) pg MCHC 32.3 (32-36) g/dL RDW Std Deviation 53.8 H (36.4-46.3) fL RDW Coeff of Kirsty 15.1 H (11.5-14.5) % Plt Count 91 L (130-400) K/uL MPV 10.4 (7.4-10.4) fL Immature Gran % (Auto) 0.5 % Neut % (Auto) 67.1 % Lymph % (Auto) 16.7 % [place] % (Auto) 13.5 % Eos % (Auto) 2.0 % Baso % (Auto) 0.2 % Neut # (Auto) 2.74 (1.4-6.5) K/uL Lymph # (Auto) 0.68 L (1.2-3.4) K/uL [place] # (Auto) 0.55 (0.11-0.59) K/uL Eos # (Auto) 0.08 (0-0.5) K/uL Baso # (Auto) 0.01 (0-0.2) K/uL Immature Gran # (Auto) 0.02 (0.00-0.02) K/uL Absolute Nucleated RBC 0.02 H (0-0) K/uL Nucleated RBC % (auto) 0.4 % Platelet Estimate Decreased L (Normal) Sodium 140 (136-145) mmol/L Potassium 5.3 H (3.5-5.1) mmol/L Chloride 115 H (98-107) mmol/L Carbon Dioxide 20 L (21-32) mmol/L Anion Gap 5.0 (3-11) BUN 24 H (7-18) mg/dl Creatinine 2.57 H (0.6-1.2) mg/dl Est Cr Clr Drug Dosing 20.7 ml/min Est GFR ( Amer) 19.8 Est GFR (Non-Af Amer) 17.1 BUN/Creatinine Ratio 9.3 L (10-20) Glucose 88 (70-99) mg/dl Calcium 8.5 (8.5-10.1) mg/dl Total Bilirubin 0.6 (0.2-1) mg/dl AST 26 (15-37) U/L ALT 23 (12-78) U/L Alkaline Phosphatase 44 L (45-117) U/L Troponin I 0.040 (0-0.045) ng/ml Total Protein 6.1 L (6.4-8.2) gm/dl Albumin 2.5 L (3.4-5.0) gm/dl Globulin 3.6 (2.5-4.0) gm/dl Albumin/Globulin Ratio 0.7 L (0.9-2) Lipase 59 L (73-393) U/L COVID-19 Eval Order CovFluRsv at [facility] SARS-CoV-2 (PCR) (Negative) Influenza Type A (PCR) (Neg) Influenza Type B (PCR) (Neg) RSV (RT-PCR) (Neg) 09/04/20 Range/Units 02:25 WBC (4.8-10.8) K/uL RBC (4.2-5.4) M/uL Hgb (12.0-16.0) g/dL Hct (37-47) % MCV (80-100) fL MCH (25-34) pg MCHC (32-36) g/dL RDW Std Deviation (36.4-46.3) fL RDW Coeff of Kirsty (11.5-14.5) % Plt Count (130-400) K/uL MPV (7.4-10.4) fL Immature Gran % (Auto) % Neut % (Auto) % Lymph % (Auto) % [place] % (Auto) % Eos % (Auto) % Baso % (Auto) % Neut # (Auto) (1.4-6.5) K/uL Lymph # (Auto) (1.2-3.4) K/uL [place] # (Auto) (0.11-0.59) K/uL Eos # (Auto) (0-0.5) K/uL Baso # (Auto) (0-0.2) K/uL Immature Gran # (Auto) (0.00-0.02) K/uL Absolute Nucleated RBC (0-0) K/uL Nucleated RBC % (auto) % Platelet Estimate (Normal) Sodium (136-145) mmol/L Potassium (3.5-5.1) mmol/L Chloride (98-107) mmol/L Carbon Dioxide (21-32) mmol/L Anion Gap (3-11) BUN (7-18) mg/dl Creatinine (0.6-1.2) mg/dl Est Cr Clr Drug Dosing ml/min Est GFR ( Amer) Est GFR (Non-Af Amer) BUN/Creatinine Ratio (10-20) Glucose (70-99) mg/dl Calcium (8.5-10.1) mg/dl Total Bilirubin (0.2-1) mg/dl AST (15-37) U/L ALT (12-78) U/L Alkaline Phosphatase (45-117) U/L Troponin I (0-0.045) ng/ml Total Protein (6.4-8.2) gm/dl Albumin (3.4-5.0) gm/dl Globulin (2.5-4.0) gm/dl Albumin/Globulin Ratio (0.9-2) Lipase (73-393) U/L COVID-19 Eval Order SARS-CoV-2 (PCR) NEGATIVE (Negative) Influenza Type A (PCR) Negative (Neg) Influenza Type B (PCR) Negative (Neg) RSV (RT-PCR) Negative (Neg) Imaging Data Attestation: I personally reviewed and interpreted this imaging study as follows: Radiologist's Impression: CT ABDOMEN & PELVIS Without Contrast: Multiple fluid distended loops of small bowel throughout the abdomen and pelvis extending to the surgical anastomosis in the right upper quadrant in the area of partial right segmental colectomy, new from the previous examination dated 07/05/2020 (the appendix is not present, as specifically reported in history). The transverse and left-sided colon is predominantly decompressed. Differential consideration includes postoperative ileus versus small bowel obstruction. No pneumatosis or pneumoperitoneum. No free intraperitoneal fluid. Overlying vertical and right upper quadrant superficial skin pamela with subcut aneous edema involving the anterior and anterolateral subcutaneous fat, consistent with recent postoperative status. No subcutaneous hematoma, abdominal wall hernia or loculated fluid collection. The liver, gallbladder, pancreas, spleen, adrenal glands and kidneys demonstrate no significant acute abnormality or interval change from the previous examination. Stable right renal cortical cyst and left subcentimeter nonobstructive nephrolithiasis. The bladder is mildly distended without significant wall abnormalities or calcifications. No acute osseous abnormality. Radiologist: Sohail Hills MD ECG Data Attestation: I personally reviewed and interpreted this ECG as follows: Indication: + vomiting Rate (beats per minute): 61 Rhythm: + normal sinus ECG Intervals/blocks: + Normal QRS ECG ST segments: + Normal ST segments Change: no significant change MDM Narrative Continuous laboratory monitor: Order was placed for continuous laboratory monitor. Patient was placed on the laboratory monitor. Patient was noted to be in normal sinus rhythm at an initial rate of 61 bpm. The patient is a 80-year-old female who presents today complaining of vomiting and diarrhea. Patient recently had a bowel resection and was just discharged a few days ago. Her CT scan shows a postoperative ileus versus bowel obstruction. She has an acute kidney injury. She was gently hydrated here and given nausea medication. The case was discussed with the general surgeon, who agreed that NG tube was likely not needed at this time. [facility] the patient for further care. Impression & Plan Small bowel obstruction, Acute kidney injury Discharge Plan Visit Data Chief Complaint: Diarrhea Stated Complaint: NVD, S/P COLON RESECTION, DR REF'D ED Provider: Freedom Muñoz ED Midlevel Provider: [place] Discharge Problem: Small bowel obstruction, Acute kidney injury Patient Disposition: Admitted As Inpatient Discharge Instructions Interventions: ED Discharge Assessment Last Done: 09/04/20 04:56
[2020-09-06] MEDS: INSULIN ASPART 100 UNITS/ML 3 ML PEN SC SCH ×4 (08:44→21:10)
--- NOTE | 2020-09-06 08:47 | Surgery Progress Note ---
Date of Service September 06, 2020 Assessment & Plan (1) Ileus: resolving advance diet as above. feeling much better. if she continues to improve, possible d/c tomorrow. Admission and Anticipated Discharge Date Admission Date: September 04, 2020 Subjective tolerating full liquids, bowels moving Physical Exam Gastrointestinal (Abdomen): Inspection/Auscultation: abdomen not distended Percussion/Palpation: abdomen soft Results & Data ([facility]) Vital Signs (Past 12 Hours) Vital Signs Temp Pulse Resp BP Pulse Ox 09/06/20 08:36 37.1 C 171/57 H 09/06/20 08:06 37.3 C 70 16 196/66 H 93 09/05/20 22:56 172/71 H 09/05/20 21:12 36.9 C 59 L 16 167/68 H 96 PG Care Time/CCT Total # of Minutes Spent Total Time Spent with Patient: Total time spent is greater than 50% in coordination of care (as documented) at patient's floor/unit and/or counseling patient: Coding Level of Care Code None Diagnoses Ileus K56.7
--- NOTE | 2020-09-06 15:35 | Hospitalist Progress Note ---
Date of Service September 06, 2020 Assessment & Plan (1) Ileus: Patricia Unger is a 80-year-old female with past medical history significant for type 2 diabetes, chronic kidney disease, coronary artery disease, DVTs, s/p right hemicolectomy (08/26); presents to the ER for concerns of inability to tolerate oral intake with nausea, vomiting, and diarrhea over the last several days. Patient has demonstrated clinical improvement with conservative management. Ileus, a complication of care (recent right hemicolectomy): -CT abdomen pelvis demonstrating concern for ileus/small bowel obstruction -Patient is status post right hemicolectomy (08/26). Likely swelling at her edmar stomosis causing a functional partial small bowel obstruction -Patient was also taking hydrocodone/acetaminophen and Imodium following discharge, which may have been contributory -KUB 09/05 showed improvement in bowel gas pattern -Diet advanced, currently tolerate low fiber without recurrent symptoms. IVF discontinued. -General surgery following, appreciate recs Adenocarcinoma of Colon - Pathology report from 08/26/20 showing adenocarcinoma with clear margins - patient already has follow up visit scheduled with Dr. Hernandez Thrombocytopenia-resolved -Platelets 91 on admission, with appearance of previous platelets > 190 earlier in the week -Uncertain etiology of this drop, consideration of heparin-induced thrombocytopenia given patient's recent hospitalization with utilization of Lovenox -4 T score indicating intermediate probability of heparin-induced thrombocytopenia. Heparin antibodies ordered: pending -Repeat CBCs showing normal plts Acute kidney injury on CKD: -Baseline Cr approximately 1.8 -Cr on admission of 2.57, has returned to baseline -Likely in the scenario of dehydration given persistent diarrhea and nausea and vomiting -IVF discontinued Diarrhea-improved -Recent antibiotic course of Bactrim- following discharge for UTI -C. difficile testing ordered: negative - may be secondary to recent hemicolectomy Type 2 diabetes: -Sliding scale insulin ordered -BSG ACHS CAD/HTN -Cont PO atorvastatin, ASA, isosorbide mononitrate, metoprolol succinate, hydralazine as directed -IV Hydralazine 10 mg q4h PRN for SBP>170 History of DVT: -DVT originally noted in March, with continuation noted in July of this year -restarted home Eliquis 5 mg BID Diet: Low fiber diet DVT Prophylaxis: Eliquis CODE STATUS: Full code Dispo: med surg Admission and Anticipated Discharge Date Admission Date: September 04, 2020 Supervising Physician Co-Signing Physician Notes Resident Physician Supervision Note: I independently interviewed and examined the patient and verified the anthony history and physical, reviewed labs and image studies, discussed the case with the resident Dr. Kebede and agree with the findings and care plan. Subjective No acute events overnight. Tolerating a low fiber diet well without recurrent symptoms. She has been having brown liquid stool - she is able to have clear urinations in between BMs. She is aware she had an adenocarcinoma in her colon - she already follows with Dr. Hernandez every 6 months for her breast cancer - she will be seeing him as an outpatient for recent adenocarcinoma resection. Review of Systems Review of Systems: All systems reviewed & are unremarkable except as noted in HPI & below Physical Exam Constitutional: WD/WN, vitals as above cooperative; no acute distress Eyes: + anicteric sclerae ENMT: external ear and nose normal, oropharynx normal Neck: normal visual inspection and trachea midline Respiratory: normal respiratory effort, lungs clear to auscultation Cardiovascular: RRR, no murmur, no edema Heart Sounds: normal S1 and normal S2 Gastrointestinal (Abdomen): normal bowel sounds, soft, nontender, no hepatosplenomegaly Skin: no rashes, warm and dry Psychiatric: A+Ox3, euthymic affect Results & Data Results & Data ([facility]) Vital Signs (Past 12 Hours) Vital Signs Temp Pulse Resp BP Pulse Ox 09/06/20 14:36 65 125/63 09/06/20 08:36 37.1 C 171/57 H 09/06/20 08:06 37.3 C 70 16 196/66 H 93 Resident Activity Tracking Resident Involvement: Resident Care Provided Care Provided: Adult Hospital Medicine
[2020-09-06] MEDS ORDERED: MELATONIN 3 MG TAB PO PRN (17:36)
[2020-09-06] MEDS: ATORVASTATIN 40 MG TAB PO SCH (21:10)
[2020-09-06] MEDS: ASPIRIN 81 MG ECTAB PO SCH (21:10)
[2020-09-06 23:23] VITALS: PULSE 72
--- NOTE | 2020-09-07 07:07 | Discharge Summary ---
Date of Service September 07, 2020 Admission HPI Per Admitting Provider Patricia Unger is a 80-year-old female with past medical history significant for type 2 diabetes, chronic kidney disease, coronary artery disease, DVTs, s/p right hemicolectomy (08/26); presents to the ER for concerns of inability to tolerate oral intake with nausea, vomiting, and diarrhea over the last several days. Patient states that following being discharged on 09/01 she felt okay for a short period of time however shortly thereafter she started to have very frequent diarrheal episodes daily. With these episodes she also noticed a return of some of her nausea and inability to take meds by mouth, even had diffi culty with putting her dentures and causing her to be nauseous and vomit. Was given a prescription for Questran powder which she attempted to mix up and drink in order to calm her stomach however was unable to keep this medication down. Ultimately yesterday (09/03) she elected to take some Imodium following multiple intense diarrheal episodes, following which she started to notice more increased bloating and ultimately came to the ER for evaluation. Throughout this time has not had any abdominal pain, fevers, chills, sweats. Additionally, has not noticed any bleeding, bruising, changes to her skin. Admission Exam Per Admitting Provider Constitutional: WD/WN, vitals as above Eyes: PERRL, conjunctivae normal, anicteric sclerae Respiratory: normal respiratory effort, lungs clear to auscultation Auscultation: no crackles, no rales, no rhonchi and no wheezes Cardiovascular: Rate/Rhythm: regular rate and regular rhythm Heart Sounds: no gallop, no murmur and no cardiac rub Vessels: normal peripheral pulses; no JVD Extremities: no edema Gastrointestinal (Abdomen): Inspection/Auscultation: + abdomen distended, normal bowel sounds and + abdominal surgical incision Percussion/Palpation: abdomen soft; abdomen nontender and no guarding Musculoskeletal: no cyanosis or clubbing, extremities motor strength 5/5 Skin: no rashes, warm and dry Neurologic: PERRL, EOMI, accommodation nl, no face palsy, no dysarthria CN's II-XI intact bilaterally and moves all extremities Psychiatric: Orientation: alert and oriented x 3 Principal Diagnosis Ilues Discharge Exam Constitutional WD/WN, vitals as above cooperative; no acute distress Eyes + anicteric sclerae ENMT external ear and nose normal, oropharynx normal Neck normal visual inspection and trachea midline Respiratory normal respiratory effort, lungs clear to auscultation Cardiovascular RRR, no murmur, no edema Heart Sounds: normal S1 and normal S2 Gastrointestinal (Abdomen) normal bowel sounds, soft, nontender, no hepatosplenomegaly Skin no rashes, warm and dry Psychiatric A+Ox3, euthymic affect Discharge Data Allergies Allergy/AdvReac Type Severity Reaction Status Date / Time diclofenac Allergy Mild ankle Verified 09/04/20 07:17 swelling JESSICA Inhibitors AdvReac Intermediate ARF Verified 09/03/20 22:12 iron AdvReac Mild nausea/ Verified 09/03/20 22:12 VOMITING Consultations 09/04/20 05:13 Consult General Surgery Routine Ordered Studies 09/04/20 01:19 CT abd pelvis wo con Urgent Hospital Course (1) Ileus: Patricia Unger is a 80-year-old female with past medical history significant for type 2 diabetes, chronic kidney disease, coronary artery disease, DVTs, s/p right hemicolectomy (08/26); presents to the ER for concerns of inability to tolerate oral intake with nausea, vomiting, and diarrhea over the last several days. Patient has demonstrated clinical improvement with conservative management. Ileus, a complication of care (recent right hemicolectomy): -CT abdomen pelvis demonstrating concern for ileus/small bowel obstruction -Patient is status post right hemicolectomy (08/26). Likely swelling at her anastomosis causing a functional partial small bowel obstruction -Patient was also taking hydrocodone/acetaminophen and Imodium following discharge, which may have been contributory -KUB / showed improvement in bowel gas pattern -Diet advanced, patient tolerated low fiber without recurrent symptoms. Adenocarcinoma of Colon - Pathology report from 08/26/20 showing adenocarcinoma with clear margins - patient already has follow up visit scheduled with Dr. Hernandez Thrombocytopenia-resolved -Platelets 91 on admission, with appearance of previous platelets > 190 earlier in the week -Uncertain etiology of this drop, consideration of heparin-induced thrombocytop enia given patient's recent hospitalization with utilization of Lovenox -4 T score indicating intermediate probability of heparin-induced thrombocytopenia. Heparin antibodies ordered: but send out lab was cancelled due to the sample having been drawn below the IV site. -However, repeat CBC (drawn 8 hours later) showed normal platelet count. Suspicion is stronger for a lab abnormality than HIT - as we would not have expected value to correct that quick if HIT was underlying etiology. Acute kidney injury on CKD: Resolved -Baseline Cr approximately 1.8 -Cr on admission of 2.57, has returned to baseline by the time of discharge -likely secondary to dehydration given persistent diarrhea and nausea and vomiting Diarrhea-improved - Patient was treated with a recent antibiotic course of Bactrim- (following discharge for UTI) - C. difficile testing ordered: negative - likely secondary to recent hemicolectomy Type 2 diabetes: -continue home insulin regimen CAD/HTN -Cont home medication regimen: atorvastatin, ASA, isosorbide mononitrate, metoprolol succinate History of DVT: -DVT originally noted in March, with continuation noted in July of this year -continue home Eliquis 5 mg BID Total Time Total Time Spent Total Time Spent (In Minutes): see attending attestation Discharge Plan Discharge Items Patient Disposition: Home - Self-Care Reason For Visit: ILEUS Discharge Diagnosis: small bowel obstruction Activity: Resume your previous activity Non-emergency contact: Primary Care Provider Call non-emergency contact if: your symptoms worsen Follow-up/Referrals: Sohail Quiroga DO [Surgeon] - 09/15/20 9:30 am () Bandar Conrad DO [Primary Care Provider] - Diet: Heart Healthy Addtl Attending Provider Instructions: You were hospitalized at [facility] for nausea, vomiting and diarrhea. A cat scan of your abdomen showed evidence of a small bowel obstruction. The cause of your small bowel obstruction was likely related to your recent surgical procedure (hemicolectomy or removal of part of your colon). The portion of your bowel that was connected back together was swollen (part of the healing process), which caused a blockage (or obstruction). You were treated with IV fluids and nausea medication. Your symptoms improved while under our care. We were able to slowly advance your diet without recurrence of symptoms. Fortunately, no additional surgical intervention was necessary. With regards to your recent hemicolectomy, the pathology report return positive for adenocarcinoma of the colon, which is a cancer. Fortunately, the margins (ie the surrounding tissue) was normal, which suggests the cancerous growth was removed in entirety. We recommend you keep your follow-up appointment with Dr. Hernandez. Pending Studies at Discharge: No Stand-Alone Forms: [facility], Smoking Cessation Medications and DC Order Prescriptions: Continued potassium chloride [Klor-Con M20] 20 mEq tablet,ER particles/crystals 20 meq PO QAM Qty: 90 RF: 3 Lantus U-100 Insulin 100 unit/mL solution 60 unit SUBCUT HS 90 Days Qty: 54 RF: 3 alendronate [Fosamax] 70 mg tablet 70 mg PO WEEKLY Qty: 12 RF: 3 Eliquis 5 mg tablet 5 mg PO BID Qty: 60 RF: 11 bumetanide 0.5 mg tablet 0.5 mg PO QPM Qty: 90 RF: 3 Questran Light 4 gram powder 2 g PO TID Qty: 210 RF: 0 aspirin 81 mg tablet,delayed release (DR/EC) 81 mg PO QPM RF: 0 metoprolol succinate 100 mg tablet extended release 24 hr 150 mg PO BID Qty: 270 RF: 3 nystatin 100,000 unit/gram powder 1 applic topical BID Qty: 30 RF: 3 (DME) pen needle, diabetic [BD Ultra-Fine Short Pen Needle] 31 gauge x 5/16" needle See Dose Instructions .ROUTE .MEDSUPPLY Qty: 30 RF: 0 tamoxifen 20 mg tablet 20 mg PO HS RF: 0 bumetanide 0.5 mg Tablet 0.5 mg PO QDL RF: 0 cilostazol 100 mg tablet 100 mg PO BID RF: 0 isosorbide mononitrate 30 mg tablet extended release 24 hr 30 mg PO QAM RF: 0 hydralazine 25 mg tablet 25 mg PO TID RF: 0 isosorbide mononitrate 60 mg tablet extended release 24 hr 60 mg PO QAM RF: 0 bumetanide 0.5 mg tablet 1 mg PO QAM RF: 0 hydralazine 50 mg tablet 50 mg PO TID RF: 0 insulin aspart U-100 [Novolog Flexpen U-100 Insulin] 100 unit/mL (3 mL) insulin pen 0 unit SQ TID RF: 0 fluticasone propionate [Flonase Allergy Relief] 50 mcg/actuation [place] ,Suspension 2 spray INTRANASAL DAILY PRN (Reason: Congestion) RF: 0 omega 0-xvi-gpy-fish oil [Fish Oil] 1,000 mg (120 mg-180 mg) Capsule 1 cap PO QPM RF: 0 cyanocobalamin (vitamin B-12) 1,000 mcg Capsule 1,000 mcg PO QAM RF: 0 magnesium oxide 400 mg Capsule 400 mg PO BID RF: 0 fexofenadine [Gabby Allergy] 60 mg tablet 60 mg PO DAILY PRN (Reason: Allergy Symptoms) RF: 0 atorvastatin 40 mg tablet 40 mg PO HS RF: 0 diclofenac sodium [Voltaren] 1 % Gel 2 g TOPICAL BID PRN (Reason: Pain) RF: 0 ondansetron HCl [Zofran] 4 mg tablet 4 mg PO Q8H PRN (Reason: nausea and vomiting) 4 Days Qty: 12 RF: 0 hydrocodone-acetaminophen 5-325 mg tablet 1 - 2 tab PO .q4h- q6h PRN (Reason: pain, for initial therapy, max 6 tabs per day ) Qty: 15 RF: 0 sulfamethoxazole-trimethoprim [Bactrim DS] 800-160 mg tablet 1 tab PO Q12H 3 Days Qty: 5 RF: 0 Discharge Orders: Discharge Order (Routine); Ordered 09/07/20 Ordered By: Gloria Blue/Other Patient Handouts: Ileus Admission Data Admit Date/Time: 09/04/20 03:23 Attending Provider: Nicole Mancilla Admit Provider: Reji Mota Primary Care Provider: Bandar Conrad Other Providers: John Holland ; Sohail Quiroga ; Jason Jarquin Other Interventions: Discharge Summary Assessment (RN) Last Done: 09/07/20 09:42 Supervising Physician Co-Signing Physician Notes Resident Physician Supervision Note: I independently interviewed and examined the patient and verified the anthony history and physical, reviewed labs and image studies, discussed the case with the resident Dr. Kebede and agree with the findings and care plan. Resident Activity Tracking Resident Involvement: Resident Care Provided Care Provided: Adult Hospital Medicine
--- NOTE | 2020-09-07 07:44 | Surgery Progress Note ---
Date of Service September 07, 2020 Assessment & Plan (1) Ileus: Patient continues to feel better Tolerating a diet, + bowel function, no abdominal complaints Okay from our standpoint for discharge to home today pending medicine clearance We will see her for follow up in the office and staple removal as above. doing well. ok for d/c. instructions given. f/u with me next week. Admission and Anticipated Discharge Date Admission Date: September 04, 2020 Subjective Patient states she is feeling well. She is tolerating a diet and feels like she finally has an appetite and her "abdominal fullness" she was previously complaining of has resolved. She denies any nausea. She is passing flatus and loose stool. Physical Exam Physical Exam: awake/alert Constitutional: no acute distress Respiratory: normal respiratory effort Gastrointestinal (Abdomen): Percussion/Palpation: abdomen soft; abdomen nontender Results & Data ([facility]) Vital Signs (Past 12 Hours) Vital Signs Temp Pulse Resp BP Pulse Ox 09/06/20 23:22 37.8 C H 72 18 187/71 H 96 PG Care Time/CCT Total # of Minutes Spent Total Time Spent with Patient: Total time spent is greater than 50% in coordination of care (as documented) at patient's floor/unit and/or counseling patient: Coding Level of Care Code None Diagnoses Ileus K56.7
[2020-09-07 08:31] VITALS: BP 197/68; TEMP 99.7; O2SAT 95
[2020-09-07] MEDS: INSULIN ASPART 100 UNITS/ML 3 ML PEN SC SCH (08:40)
[2020-09-07] MEDS: BUMETANIDE 1 MG TAB PO SCH (08:42)
[2020-09-07] MEDS: APIXABAN 5 MG TABLET PO SCH (08:42)
[2020-09-07] MEDS: hydrALAZINE TAB 50 MG TAB PO SCH (08:42)
[2020-09-07] MEDS: hydrALAZINE HCL 25 MG TAB PO SCH (08:42)
[2020-09-07] MEDS: ISOSORBIDE MONO EXTENDED REL 30 MG TABCR PO SCH (08:43)
[2020-09-07] MEDS: ISOSORBIDE MONO EXTENDED REL 60 MG TABCR PO SCH (08:43)
[2020-09-07] MEDS: METOPROLOL SUCC 50MG EXT REL TAB PO SCH (08:43)
== END 2020-09-07 10:41 | disposition home or self-care (01) | DRG 394 ==
LOC: ED 21:23 → SUATTDRO 09-04 03:23 → 2N 09-04 03:23 → 3W 09-05 00:28

== ENCOUNTER 2023-06-09 10:02 | Inpatient (IN) ==
--- NOTE | 2023-06-09 10:42 | XRay Report ---
XR chest 1V portable HISTORY: 82 years-old Female Chest pain, nonspecific acute chest pain COMPARISON: Chest CT 01/12/2022 TECHNIQUE: AP view of the chest FINDINGS: Cardiac silhouette is enlarged. Median sternotomy with CABG. Pulmonary vascular congestion is suggest ed. Chronic interstitial coarsening. No pneumothorax, large pleural effusion or lobar airspace consol idation. Subsegmental bibasilar atelectasis versus scarring. Degenerative changes of the shoulders an d spine. IMPRESSION: Cardiomegaly with pulmonary vascular congestion. ACT 112: Negative or not required by law. The above report was generated using voice recognition software. It may contain grammatical, syntax o r spelling errors. Electronically signed by: Pancho Alvarado M.D. 06/09/2023 10:40 AM
--- NOTE | 2023-06-09 11:45 | Emergency Department Note ---
History of Present Illness General Chief Complaint: Shortness of Breath/Dyspnea Stated Complaint: SOB Time Seen by Provider: 06/09/23 10:08 History of Present Illness Provider Complaint: shortness of breath Onset (ago): day(s) (3) Consistency/Duration: + progressively worsening Relieved By: + nothing Exacerbated By: + exertion Associated symptoms: + chest congestion; no chest pain, no fever, no cough, no sputum production, no orthopnea, no paresthesias, no hemoptysis, no diaphoresis, no nausea/vomiting, no syncope or no abdominal pain Related Data Home oxygen amount: none Home Medications Medication Instructions Recorded Confirmed Type cyanocobalamin (vitamin B-12) 1,000 mcg PO QAM 12/28/17 06/09/23 History 1,000 mcg capsule magnesium oxide 400 mg PO BID 12/28/17 06/09/23 History omega 7-pfq-rkt-fish oil 1,000 mg 1 cap PO QPM 12/28/17 06/09/23 History (120 mg-180 mg) capsule (Fish Oil) fexofenadine 60 mg tablet (Gabby 60 mg PO DAILY PRN Allergy Symptoms 10/02/18 06/09/23 History Allergy) pen needle, diabetic 31 gauge x #30 ea 11/22/18 05/10/23 History 5/16" (BD Ultra-Fine Short Pen Needle) aspirin 81 mg tablet,delayed 81 mg PO QPM 07/15/20 06/09/23 History release diclofenac sodium 1 % topical gel 2 g topical BID PRN Pain 08/12/20 06/09/23 History (Voltaren) epoetin jase 2,000 unit/mL 2,000 unit subcut .[id number] 12/02/20 06/09/23 History injection solution (Procrit) insulin aspart U-100 100 unit/mL See Rx Instructions subcut TID #60 08/16/21 06/09/23 Rx (3 mL) subcutaneous pen (Novolog mL FlexPen U-100 Insulin aspart) insulin glargine 100 unit/mL (3 55 unit (0.55 mL) subcut HS #60 mL 08/28/22 06/09/23 Rx mL) subcutaneous pen (Lantus Solostar U-100 Insulin) isosorbide mononitrate 30 mg 30 mg PO QAM #90 tabs 12/25/22 06/09/23 Rx tablet,extended release 24 hr isosorbide mononitrate 60 mg 60 mg PO QAM #90 tabs 12/25/22 06/09/23 Rx tablet,extended release 24 hr hydralazine 100 mg tablet 100 mg PO TID #270 tabs 12/28/22 06/09/23 Rx alendronate 70 mg tablet (Fosamax) 70 mg PO WEEKLY #12 tabs 01/23/23 06/09/23 Rx apixaban 2.5 mg tablet (Eliquis) 2.5 mg PO BID #180 tabs 01/29/23 06/09/23 Rx ondansetron 4 mg disintegrating 4 mg PO Q6H PRN nausea and 04/17/23 06/09/23 Rx tablet vomiting #14 tabs metoprolol succinate 200 mg 200 mg PO BID #180 tabs 05/14/23 06/09/23 Rx tablet,extended release 24 hr bumetanide 0.5 mg tablet 0.5 mg PO BID #120 tabs 05/15/23 06/09/23 Rx atorvastatin 40 mg tablet 40 mg PO HS #90 tabs 05/23/23 06/09/23 Rx cilostazol 100 mg tablet 100 mg PO BID #180 tabs 06/05/23 06/09/23 Rx Saccharomyces boulardii 250 mg 0 mg PO BID 06/09/23 06/09/23 History capsule (Florastor) calcitriol 0.25 mcg capsule 0 mcg PO DAILY 06/09/23 06/09/23 History (Rocaltrol) ketoconazole 2 % topical cream 1 applic topical BID PRN Other 06/09/23 06/09/23 History mupirocin 2 % topical ointment 1 applic topical BID PRN Other 06/09/23 06/09/23 History nystatin 100,000 unit/gram topical 1 applic topical BID PRN Other 06/09/23 06/09/23 History cream Allergies Allergy/AdvReac Type Severity Reaction Status Date / Time sulfamethoxazole AdvReac Severe SEVERE Verified 05/10/23 13:39 [From Bactrim] VOMITING trimethoprim [From Bactrim] AdvReac Severe SEVERE Verified 05/10/23 13:39 VOMITING JESSICA Inhibitors AdvReac Intermediate ARF Verified 05/10/23 13:39 spironolactone AdvReac Intermediate Hyperkalemi Verified 05/10/23 13:39 a diclofenac AdvReac Mild ankle Verified 05/10/23 13:39 swelling iron AdvReac Mild nausea/ Verified 05/10/23 13:39 VOMITING Past Med/Surg History Medical History Right knee DJD History of colon cancer 2020- adenocarcinoma Chronic anticoagulation Small bowel obstruction 2020 > after colon surgery Ileus Encounter for pre-operative examination Anemia Mild- has been evaluated by heme/onc for recent dx colon cancer Hx of breast cancer right breast (Jun 2018). surgical intervention + radiation therapy DVT (deep venous thrombosis) Right upper leg DVT -- March 2020 -- placed on eliquis.-NO ISSUES SINCE Recent u/s from 07/07/20= shows continued evidence of right common femoral DVT. Osteoporosis Lumbar spinal stenosis Edema Peripheral vascular disease Hypertension Hx of acute respiratory failure WITH GB SURG 04/21/09 [facility] POST OP RESPIRATORY FAILURE-HAD TO BE VENTILATED,EXTUBATED NEXT DAY-PER PT SLOW TO WAKE UP IN GENERAL Right breast partial mastectomy 08/29/18 under [place] with LMA #4 x 3 attempts- atraumatic with good seal- no other issues noted CAD (coronary artery disease) s/p 3 vessel CABG 2006 Osteoarthritis Venous stasis dermatitis LLE Chronic kidney disease STAGE 3-FOLLOWS WITH DR LIND Last seen by nephro 07/20/20- kidney function stable at that time Hyperlipidemia Surgical History Hx of colonoscopy Hx of lymph node excision right axillary History of left knee replacement Status post dilation and curettage 08/26/20 Dr. Cathy Calderon- Hysteroscopy, Dilation and Curettage, Possible Polypectomy S/P laparoscopic colectomy (08/26/20) Laparoscopic Extended Hemicolectomy, Extensive enterolysis - Sohail Quiroga, DO History of esophagogastroduodenoscopy (EGD) S/P epidural steroid injection History of partial mastectomy of right breast no chemo, just radiation Status post trigger finger release X2 History of total knee replacement LEFT 2018 History of adverse response to anesthesia SLOW TO WAKE. PT HAD RESP FAILURE S/P KYLAH IN 2008 History of Moh's micrographic surgery for skin cancer S/P tendon repair R ARM History of cholecystectomy History of dilatation and curettage History of bilateral tubal ligation History of cataract surgery BL History of coronary artery bypass graft 3 VESSELS 2007-[facility] [place] History of cardiac cath 2006 NO STENTS-[facility] Family History Mother , age 38 heart disease due to rheumatic fever No problems noted. Father , age 73 heart disease No problems noted. Sister No problems noted. Sister No problems noted. Sister No problems noted. Sister No problems noted. Sister No problems noted. 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 Books Required: No Beliefs That Will Affect Care: None marital status: / Current Living Situation: Alone current occupational status: retired How many Children do You have: 2 Feels Safe at Home: Yes Childhood Exposure to Second-Hand Smoke: No Diet: low salt and regular caffeine: No during the past year weight has: remained stable Dental Care, Regularly: No Physical Activity Frequency: 3-4 Times per Week Seatbelt Use: always Do you think of yourself as: straight/heterosexual Gender Identity: Female Assistive Devices: Denture - Upper, Denture - Lower and Glasses Physical Exam 2 Vital Signs: Vital Signs - 24 hr 06/09/23 10:10 06/09/23 10:10 06/09/23 10:10 Temperature 36.8 C Temperature Source Oral Pulse Rate 80 Pulse Rate [Apical ] Pulse Rhythm [Apic al] Pulse Strength [Ap ical] Respiratory Rate 24 Respiratory Effort / Characteristics Non-Labored Respiratory Depth Normal Normal Respiratory Patter n Regular Blood Pressure 189/82 H Blood Pressure [Le ft Arm] Blood Pressure Kaelyn n 117 Blood Pressure Kaelyn n [Left Arm] Blood Pressure Pos ition [Left Arm] Pulse Oximetry 94 100 Oxygen Delivery Me thod Room Air Room Air Nasal Cannula Oxygen Flow Rate 4 Sepsis Recent Feve r Within 48 Hours No Sepsis New/Unexpla ined Change in Men merari Status No Sepsis Action Take n by Nursing No Action Required Oxygen Flow Rate - Titration 0 Pulse Oximetry Pos t Tiitration 94 06/09/23 11:12 06/09/23 11:12 06/09/23 12:01 Temperature Temperature Source Pulse Rate 73 74 Pulse Rate [Apical ] 73 Pulse Rhythm [Apic al] Pulse Strength [Ap ical] Respiratory Rate 18 18 Respiratory Effort / Characteristics Spontaneous Respiratory Depth Respiratory Patter n Blood Pressure Blood Pressure [Le ft Arm] Blood Pressure Kaelyn n Blood Pressure Kaelyn n [Left Arm] Blood Pressure Pos ition [Left Arm] Pulse Oximetry 93 93 Oxygen Delivery Me thod Room Air Room Air Oxygen Flow Rate Sepsis Recent Feve r Within 48 Hours Sepsis New/Unexpla ined Change in Men merari Status Sepsis Action Take n by Nursing Oxygen Flow Rate - Titration Pulse Oximetry Pos t Tiitration 06/09/23 12:32 Temperature Temperature Source Pulse Rate Pulse Rate [Apical ] 76 Pulse Rhythm [Apic al] Regular Pulse Strength [Ap ical] Normal Respiratory Rate 18 Respiratory Effort / Characteristics Spontaneous Respiratory Depth Normal Respiratory Patter n Blood Pressure Blood Pressure [Le ft Arm] 161/89 H Blood Pressure Kaelyn n Blood Pressure Kaelyn n [Left Arm] 113 Blood Pressure Pos ition [Left Arm] Sitting Pulse Oximetry 92 Oxygen Delivery Me thod Room Air Oxygen Flow Rate Sepsis Recent Feve r Within 48 Hours Sepsis New/Unexpla ined Change in Men merari Status Sepsis Action Take n by Nursing Oxygen Flow Rate - Titration Pulse Oximetry Pos t Tiitration Physical Exam: Physical Exam GENERAL: oriented to person, place, and time. appears well-developed and well- nourished. HENT: Exam performed. - Head: Normocephalic and atraumatic. EYES: Conjunctivae and EOM are normal. Right eye exhibits no discharge. Left eye exhibits no discharge. No scleral icterus. NECK: Normal range of motion. Neck supple. No JVD present. CV: Normal rate, irregular rhythm, normal heart sounds and intact distal pulses. 2+ pitting edema of the bilateral lower extremities. Palpable radial pulses bue. PULM/CHEST: Rhonchi and rales bilaterally. ABD: The abdomen is soft. There is no tenderness. NEURO: Motor and sensation grossly intact. Course Course 1008: The patient was evaluated in room B8. A complete history and physical exam was performed Cardiac monitoring: An order was placed for continuous cardiac monitoring. The monitor shows a rate of 70 with atrial fibrilation rhythm interpreted by me 1242: Vital signs stable. Imaging shows cardiomegaly with fluid overload. External medical records did not make any mention of atrial fibrillation history. Patient's troponin is within normal limits. BNP elevated at 826. Glucose incidentally found to be 52. Patient alert and oriented x 3. Was given p.o. which did help her. Patient's creatinine is at baseline. [facility]. Administered Medications Discontinued Medications Furosemide (Furosemide Inj 20 Mg/2 Ml Vial) 20 mg IV ONE ONE Stop: 06/09/23 12:42 Last Admin: 06/09/23 12:55 Dose: 20 mg Documented By: [facility] Medical Decision Making Laboratory Data Attestation: I reviewed the patient's lab results. 06/09/23 11:42 06/09/23 11:42 Lab Results 06/09/23 06/09/23 Range/Units 11:28 11:42 WBC 7.03 (4.8-10.8) K/ul RBC 2.90 L (4.20-5.40) M/uL Hgb 9.2 L (12.0-16.0) g/dl Hct 30.1 L (37.0-47.0) % MCV 103.8 H (80.0-100.0) fL MCH 31.7 (25.0-34.0) pg MCHC 30.6 L (32.0-36.0) g/dL RDW Std Deviation 60.5 H (36.4-46.3) fL RDW Coeff of Kirsty 15.9 H (11.5-14.5) % Plt Count 230 (130-400) K/uL MPV 9.5 (9.4-12.4) fL Immature Gran % (Auto) 0.6 % Neut % (Auto) 80.1 % Lymph % (Auto) 8.1 % [place] % (Auto) 9.2 % Eos % (Auto) 1.7 % Baso % (Auto) 0.3 % Neut # (Auto) 5.63 (1.40-6.50) K/uL Lymph # (Auto) 0.57 L (1.20-3.40) K/uL [place] # (Auto) 0.65 H (0.11-0.59) K/uL Eos # (Auto) 0.12 (0.00-0.50) K/uL Baso # (Auto) 0.02 (0.00-0.20) K/uL Immature Gran # (Auto) 0.04 (0.01-0.20) K/uL VBG pH 7.42 H (7.36-7.41) VBG pCO2 41 (38-50) mmHg VBG pO2 44 mmHg VBG HCO3 27 mmol/L VBG O2 Saturation 71.8 % VBG Base Excess 1.9 mEq/L Sodium 140 (136-145) mmol/L Potassium 4.2 (3.5-5.1) mmol/L Chloride 108 H (98-107) mmol/L Carbon Dioxide 25 (21-32) mmol/L Anion Gap 7 (3-11) BUN 36 H (6-23) mg/dl Creatinine 2.95 H (0.6-1.2) mg/dl Est Cr Clr Drug Dosing 17.6 ml/min Est GFR ( Amer) 16.5 ml/min Est GFR (Non-Af Amer) 14.3 ml/min BUN/Creatinine Ratio 12.2 (10-20) Glucose 52 L* (70-99(Fasting)) mg/dl Calcium 8.8 (8.6-10.3) mg/dl Troponin I High Sens 10.5 (0-14) pg/ml B-Natriuretic Peptide 826 H (0-100) pg/ml Lipase 13 (11-82) U/L SARS-CoV-2 (PCR) NEGATIVE (Negative) Influenza Type A (PCR) Negative (Neg) Influenza Type B (PCR) Negative (Neg) RSV (RT-PCR) Negative (Neg) Imaging Data Attestation: I personally reviewed and interpreted this imaging study as follows: My Impression: Chest x-ray: Cardiomegaly with cephalization. Radiologist's Impression: Chest X-Ray 06/09/23 10:16 XR chest 1V portable HISTORY: 82 years-old Female Chest pain, nonspecific acute chest pain COMPARISON: Chest CT 01/12/2022 TECHNIQUE: AP view of the chest FINDINGS: Cardiac silhouette is enlarged. Median sternotomy with CABG. Pulmonary vascular congestion is suggested. Chronic interstitial coarsening. No pneumothorax, large pleural effusion or lobar airspace consolidation. Subsegmental bibasilar atelectasis versus scarring. Degenerative changes of the shoulders and spine. IMPRESSION: Cardiomegaly with pulmonary vascular congestion. ACT 112: Negative or not required by law. The above report was generated using voice recognition software. It may contain grammatical, syntax or spelling errors. Electronically signed by: Pancho Alvarado M.D. 06/09/2023 10:40 AM ECG Data Attestation: I personally reviewed and interpreted this ECG as follows: Interpretation: Atrial fibrillation with rate of 75. QRS [address] elevation or ST depression. [facility] Narrative 1008: The patient was evaluated in room B8. A complete history and physical exam was performed Cardiac monitoring: An order was placed for continuous cardiac monitoring. The monitor shows a rate of 70 with atrial fibrilation rhythm interpreted by me 1242: Vital signs stable. Imaging shows cardiomegaly with fluid overload. External medical records did not make any mention of atrial fibrillation history. Patient's troponin is within normal limits. BNP elevated at 826. Glucose incidentally found to be 52. Patient alert and oriented x 3. Was given p.o. which did help her. Patient's creatinine is at baseline. Patient be treated with Lasix [facility] Impression & Plan CHF (congestive heart failure), New onset a-fib Discharge Plan Visit Data Chief Complaint: Shortness of Breath/Dyspnea Stated Complaint: SOB ED Provider: Freedom Muñoz Discharge Problem: CHF (congestive heart failure), New onset a-fib Patient Disposition: Admitted As Inpatient Forms Stand Alone Forms: My [facility] Prescriptions Prescriptions: No Action Procrit 2,000 unit/mL solution 2,000 unit subcut .[id number] insulin aspart U-100 [Novolog FlexPen U-100 Insulin] 100 unit/mL (3 mL) insulin pen See Rx Instructions SQ TID Qty: 60 3RF Rx Instructions: use per sliding scale up to 60 units daily SQ insulin glargine [Lantus Solostar U-100 Insulin] 100 unit/mL (3 mL) insulin pen 55 unit subcut HS Qty: 60 3RF isosorbide mononitrate 60 mg tablet extended release 24 hr 60 mg PO QAM Qty: 90 3RF Rx Instructions: takes with 30mg tablet for a total dose of 90mg isosorbide mononitrate 30 mg tablet extended release 24 hr 30 mg PO QAM Qty: 90 3RF Rx Instructions: 30 mg PO daily along w/60 mg tablet (total 90 mg each morning); hydralazine 100 mg tablet 100 mg PO TID Qty: 270 3RF alendronate [Fosamax] 70 mg tablet 70 mg PO WEEKLY Qty: 12 3RF metoprolol succinate 200 mg tablet extended release 24 hr 200 mg PO BID Qty: 180 3RF Rx Instructions: Discontinue prescription for 150 mg metoprolol BID bumetanide 0.5 mg tablet 0.5 mg PO BID Qty: 120 3RF atorvastatin 40 mg tablet 40 mg PO HS Qty: 90 3RF cilostazol 100 mg tablet 100 mg PO BID Qty: 180 3RF Rx Instructions: TAKE 1 TABLET TWICE A DAY aspirin 81 mg tablet,delayed release (DR/EC) 81 mg PO QPM Eliquis 2.5 mg tablet 2.5 mg PO BID Qty: 180 3RF Rx Instructions: Stop apixiban 5 mg BID (DME) pen needle, diabetic [BD Ultra-Fine Short Pen Needle] 31 gauge x 5/16" needle See Dose Instructions .ROUTE .MEDSUPPLY Qty: 30 Rx Instructions: use 1 needle 4 x daily omega 8-suw-ycj-fish oil [Fish Oil] 1,000 mg (120 mg-180 mg) Capsule 1 cap PO QPM cyanocobalamin (vitamin B-12) 1,000 mcg Capsule 1,000 mcg PO QAM magnesium oxide 400 mg Capsule 400 mg PO BID fexofenadine [Gabby Allergy] 60 mg tablet 60 mg PO DAILY PRN (Reason: Allergy Symptoms) ondansetron 4 mg tablet,disintegrating 4 mg PO Q6H PRN (Reason: nausea and vomiting) Qty: 14 0RF diclofenac sodium [Voltaren] 1 % Gel 2 g TOPICAL BID PRN (Reason: Pain) nystatin 100,000 unit/gram cream 1 applic topical BID PRN (Reason: Other) Rx Instructions: Apply to groin area. mupirocin 2 % ointment 1 applic topical BID PRN (Reason: Other) ketoconazole 2 % cream 1 applic topical BID PRN (Reason: Other) Rx Instructions: Apply to affected area. calcitriol [Rocaltrol] 0.25 mcg capsule 0 mcg PO DAILY Rx Instructions: isnt sure of this one Saccharomyces boulardii [Florastor] 250 mg capsule 0 mg PO BID Rx Instructions: isnt sure of this one. swallow whole Referrals Referrals: Isaura Rashid CRNP [Primary Care Provider] - Discharge Problem: CHF (congestive heart failure) Qualifiers: Heart failure type: unspecified Heart failure chronicity: acute Qualified Code(s): I50.9 - Heart failure, unspecified
[2023-06-09 12:03] LABS: Base Excess VBG 1.9 mEq/L; HCO3 VBG 27 mmol/L; Oxygen Saturation VBG 71.8 %; PCO2 VBG 41 mmHg (38-50); PO2 VBG 44 mmHg; pH VBG 7.42 (7.36-7.41)
[2023-06-09 12:12] LABS: Basophils # (auto) 0.02 K/uL (0.00-0.20); Basophils % (auto) 0.3 %; Eosinophils # (auto) 0.12 K/uL (0.00-0.50); Eosinophils % (auto) 1.7 %; Hematocrit (blood only) 30.1 % (37.0-47.0); Hemoglobin 9.2 g/dl (12.0-16.0); Immature Granulocytes # (auto) 0.04 K/uL (0.01-0.20); Immature Granulocytes % (auto) 0.6 %; Lymphocytes # (auto) 0.57 K/uL (1.20-3.40); Lymphocytes % (auto) 8.1 %; Mean Corpuscular Hemoglobin 31.7 pg (25.0-34.0); Mean Corpuscular Hgb Conc 30.6 g/dL (32.0-36.0); Mean Corpuscular Volume 103.8 fL (80.0-100.0); Mean Platelet Volume 9.5 fL (9.4-12.4); Monocytes # (auto) 0.65 K/uL (0.11-0.59); Monocytes % (auto) 9.2 %; Neutrophils # (auto) 5.63 K/uL (1.40-6.50); Neutrophils % (auto) 80.1 %; Platelet Count 230 K/uL (130-400); RDW Coefficient of Variation 15.9 % (11.5-14.5); RDW Standard Deviation 60.5 fL (36.4-46.3); White Blood Count 7.03 K/ul (4.8-10.8)
[2023-06-09 12:15] LABS: Influenza A virus by PCR Negative (Neg); Influenza B virus by PCR Negative (Neg); RSV by PCR Negative (Neg); SARS CoV2 RNA(COVID-19) Ceph NEGATIVE (Negative)
[2023-06-09 12:22] LABS: Anion Gap 7 (3-11); BUN Creatinine Ratio 12.2 (10-20); Blood Urea Nitrogen 36 mg/dl (6-23); Calcium 8.8 mg/dl (8.6-10.3); Carbon Dioxide 25 mmol/L (21-32); Chloride 108 mmol/L (98-107); Creatinine Clr Calc Pharmacy 17.6 ml/min; Est GFR (African American) 16.5 ml/min; Est GFR (Non-African American) 14.3 ml/min; Glucose 52 mg/dl (70-99(Fasting)); Lipase 13 U/L (11-82); Potassium 4.2 mmol/L (3.5-5.1); Sodium 140 mmol/L (136-145)
[2023-06-09] MEDS: FUROSEMIDE INJ 20 MG/2 ML VIAL IV ONE (12:55)
--- NOTE | 2023-06-09 13:17 | History & Physical Report ---
Date of Service June 09, 2023 Assessment & Plan (1) Acute diastolic CHF (congestive heart failure): Plan: Acute on chronic CHF On Bumex at baseline. BNP is elevated, x-ray is pulmonary vascular congestion, patient with subjective dyspnea Responding to Lasix 20 IV. Will continue Lasix 20 mg IV twice daily, titrate to around net 1 L out daily and continue venous stasis precautions including elevation to help mobilize fluid. Hold for uptrending creatinine or 1 clinically dry Patient has had leg swelling bilaterally over the last several days, notes that right leg is more swollen than the left normally due to history of vein harvest. She has had increased shortness of breath especially with exertion for at least 2 days. Desats to 85% on ambulation to the bathroom on provider assessment. Last echo with EF 60 to 65%, grade 1 diastolic dysfunction Stress echo 2020 1 with no induced chest pain, no EKG changes, normal LVSF ? Increased congestion with new A-fib; patient has been rate controlled since arriving in the ER BNP 826, no baseline available Follow ins and outs (2) CAD (coronary artery disease): Plan: - continue home meds (3) New onset a-fib: Plan: Patient is already on beta-bijal, Eliquis and currently appears rate controlled. No additional pharmacologic changes indicated at this time. Will follow on medical telemetry. Unclear when she switched into A-fib. Magnesium added. If doing well rate controlled can follow-up with cardiology as outpatient (4) CKD (chronic kidney disease), stage IV: Plan: CKD - Cr baseline 2.8-3.4 - Cr admit 2.95 Clinically volume overloaded, continue Lasix twice daily BMP daily spirolactone previously stopped due to hyperkalemia (5) Type 2 diabetes mellitus with neurologic complication, with long-term current use of insulin: Plan: DM 2 Continue basal/bolus Due to ER hypoglycemia on admission basal reduced to 45u. Patient had not had breakfast despite taking her Lantus last night, she denies hypoglycemic episodes normally. Goal BSG [id number] Continue correction factor 50/carb ratio 10 (6) Hypertension: Plan: Hypertension JESSICA/ARB deferred due to renal dysfunction, spironolactone previously discontinued due to hyperkalemia Metoprolol, hydralazine, Imdur continued. Bumex temporarily switched to Lasix while inpatient (7) Anemia: Plan: Chronic anemia With prior iron studies showing iron saturation 47%, anemia consistent with chronic disease/renally mediated. Receives Procrit as an outpatient Hemoglobin 9.2, microcytic on admission. Near baseline with no active bleeding (8) Cellulitis of right lower extremity: Plan: Patient was recently treated for cellulitis of the right lower extremity. Patient reports that this improved back to baseline but does again become worse and is more warm, swollen, and tender compared to the left leg On exam she does have mild asymmetric pinkness and tenderness to palpation compared to the left May have asymmetric venous stasis dermatitis as her swelling is worse due to vein harvest in that leg; however on admission and she does report that it has been warm and particularly tender and her swelling in the past has not been similarly tender. Will treat with Rocephin, marked skin edges and will follow progression. CRP urgent and a.m. trend ordered Plan Chronic, Stable Issues: History of right breast invasive ductal carcinoma: Discontinued tamoxifen in 2022. Continue outpt f/u Adenocarcinoma of ascending colon: S/p hemicolectomy 08/2020. No lymphatic spread. Continue outpatient follow-up DVT PPx: anticoagulated Diet: HH Dispo: MT CODE: Full History of Present Illness Primary Care Provider: MATT Pelletier Joseline is a 82-year-old female with past medical history of CABG, CKD, hyperlipidemia, hypercalcemia, type 2 diabetes mellitus, PVD, DVT on Eliquis who presents with shortness of breath/dyspnea. Patient was found to be in A-fib while in the ER. Chest x-ray shows pulmonary vascular congestion and patient was treated with Lasix. Patient was hypoglycemic at 53 and received dextrose Exertional dyspnea x3 days. on eliquis for DVT but no history of afib to her knowledge. She has not had chest pain at any point. She has not had fever, chills, sweats. She notes her right leg swells more than her left leg due to vein harvest in that leg, however has been an unusually tender and warm. It is more swollen than normal currently. She denies nausea, vomiting, diarrhea, constipation. Has no abdominal pain at time of admission. She has had some lightheadedness but no syncope. She did take her morning medications todayBaseline weight is around 54-56 kg, is currently 56.8 kg Medical History: Reviewed Medications: Reviewed Surgical History: Reviewed Family history: Reviewed Allergies: Reviewed Social History: Denies tobacco/etoh Code Status: Full Allergies Allergy/AdvReac Type Severity Reaction Status Date / Time sulfamethoxazole AdvReac Severe SEVERE Verified 05/10/23 13:39 [From Bactrim] VOMITING trimethoprim [From Bactrim] AdvReac Severe SEVERE Verified 05/10/23 13:39 VOMITING JESSICA Inhibitors AdvReac Intermediate ARF Verified 05/10/23 13:39 spironolactone AdvReac Intermediate Hyperkalemi Verified 05/10/23 13:39 a diclofenac AdvReac Mild ankle Verified 05/10/23 13:39 swelling iron AdvReac Mild nausea/ Verified 05/10/23 13:39 VOMITING Home Medications Medication Instructions Recorded Confirmed Type cyanocobalamin (vitamin B-12) 1,000 mcg PO QAM 12/28/17 06/09/23 History 1,000 mcg capsule magnesium oxide 400 mg PO BID 12/28/17 06/09/23 History omega 5-bpn-zam-fish oil 1,000 mg 1 cap PO QPM 12/28/17 06/09/23 History (120 mg-180 mg) capsule (Fish Oil) fexofenadine 60 mg tablet (Gabby 60 mg PO DAILY PRN Allergy Symptoms 10/02/18 06/09/23 History Allergy) pen needle, diabetic 31 gauge x #30 ea 11/22/18 05/10/23 History 5/16" (BD Ultra-Fine Short Pen Needle) aspirin 81 mg tablet,delayed 81 mg PO QPM 07/15/20 06/09/23 History release diclofenac sodium 1 % topical gel 2 g topical BID PRN Pain 08/12/20 06/09/23 History (Voltaren) epoetin jase 2,000 unit/mL 2,000 unit subcut .[id number] 12/02/20 06/09/23 History injection solution (Procrit) insulin aspart U-100 100 unit/mL See Rx Instructions subcut TID #60 08/16/21 06/09/23 Rx (3 mL) subcutaneous pen (Novolog mL FlexPen U-100 Insulin aspart) insulin glargine 100 unit/mL (3 55 unit (0.55 mL) subcut HS #60 mL 08/28/22 06/09/23 Rx mL) subcutaneous pen (Lantus Solostar U-100 Insulin) isosorbide mononitrate 30 mg 30 mg PO QAM #90 tabs 12/25/22 06/09/23 Rx tablet,extended release 24 hr isosorbide mononitrate 60 mg 60 mg PO QAM #90 tabs 12/25/22 06/09/23 Rx tablet,extended release 24 hr hydralazine 100 mg tablet 100 mg PO TID #270 tabs 12/28/22 06/09/23 Rx alendronate 70 mg tablet (Fosamax) 70 mg PO WEEKLY #12 tabs 01/23/23 06/09/23 Rx apixaban 2.5 mg tablet (Eliquis) 2.5 mg PO BID #180 tabs 01/29/23 06/09/23 Rx ondansetron 4 mg disintegrating 4 mg PO Q6H PRN nausea and 04/17/23 06/09/23 Rx tablet vomiting #14 tabs metoprolol succinate 200 mg 200 mg PO BID #180 tabs 05/14/23 06/09/23 Rx tablet,extended release 24 hr bumetanide 0.5 mg tablet 0.5 mg PO BID #120 tabs 05/15/23 06/09/23 Rx atorvastatin 40 mg tablet 40 mg PO HS #90 tabs 05/23/23 06/09/23 Rx cilostazol 100 mg tablet 100 mg PO BID #180 tabs 06/05/23 06/09/23 Rx Saccharomyces boulardii 250 mg 0 mg PO BID 06/09/23 06/09/23 History capsule (Florastor) calcitriol 0.25 mcg capsule 0 mcg PO DAILY 06/09/23 06/09/23 History (Rocaltrol) ketoconazole 2 % topical cream 1 applic topical BID PRN Other 06/09/23 06/09/23 History mupirocin 2 % topical ointment 1 applic topical BID PRN Other 06/09/23 06/09/23 History nystatin 100,000 unit/gram topical 1 applic topical BID PRN Other 06/09/23 06/09/23 History cream Past Med/Surg History Medical History (Updated 06/09/23 @ 13:44 by Donaldo Guzman MD) Right knee DJD History of colon cancer 2020- adenocarcinoma Chronic anticoagulation Small bowel obstruction 2020 > after colon surgery Ileus Encounter for pre-operative examination Anemia Mild- has been evaluated by heme/onc for recent dx colon cancer Hx of breast cancer right breast (Jun 2018). surgical intervention + radiation therapy DVT (deep venous thrombosis) Right upper leg DVT -- March 2020 -- placed on eliquis.-NO ISSUES SINCE Recent u/s from 07/07/20= shows continued evidence of right common femoral DVT. Osteoporosis Lumbar spinal stenosis Edema Peripheral vascular disease Hypertension Hx of acute respiratory failure WITH GB SURG 04/21/09 [facility] POST OP RESPIRATORY FAILURE-HAD TO BE VENTILATED,EXTUBATED NEXT DAY-PER PT SLOW TO WAKE UP IN GENERAL Right breast partial mastectomy 08/29/18 under [place] with LMA #4 x 3 attempts- atraumatic with good seal- no other issues noted CAD (coronary artery disease) s/p 3 vessel CABG 2006 Osteoarthritis Venous stasis dermatitis LLE Chronic kidney disease STAGE 3-FOLLOWS WITH DR LIND Last seen by nephro 07/20/20- kidney function stable at that time Hyperlipidemia Surgical History Hx of colonoscopy Hx of lymph node excision right axillary History of left knee replacement Status post dilation and curettage 08/26/20 Dr. Cathy Calderon- Hysteroscopy, Dilation and Curettage, Possible Polypectomy S/P laparoscopic colectomy (08/26/20) Laparoscopic Extended Hemicolectomy, Extensive enterolysis - Sohail Quiroga, DO History of esophagogastroduodenoscopy (EGD) S/P epidural steroid injection History of partial mastectomy of right breast no chemo, just radiation Status post trigger finger release X2 History of total knee replacement LEFT 2018 History of adverse response to anesthesia SLOW TO WAKE. PT HAD RESP FAILURE S/P KYLAH IN 2008 History of Moh's micrographic surgery for skin cancer S/P tendon repair R ARM History of cholecystectomy History of dilatation and curettage History of bilateral tubal ligation History of cataract surgery BL History of coronary artery bypass graft 3 VESSELS 2006-[facility] History of cardiac cath 2006 NO STENTS-[facility] Family History Mother , age 38 heart disease due to rheumatic fever No problems noted. Father , age 73 heart disease No problems noted. Sister No problems noted. Sister No problems noted. Sister No problems noted. Sister No problems noted. Sister No problems noted. Daughter Myocardial infarction Breast cancer Family history of reaction to anesthesia SLOW TO WAKE UP/PONV Daughter Heart disease Other No family history of adverse response to anesthesia Denies family history of Ovarian cancer Prostate cancer Colorectal cancer Social History Smoking Status: Never smoker Second Hand Exposure: No; Do You Dip or Chew Tobacco: No; Hx Alcohol Use: No Hx Substance Use: No Preferred Language: Polish Communication Ability: Effective Visual Impairment: Limited Hearing Ability: Normal Practice Physician Required: No Beliefs That Will Affect Care: None marital status: / Current Living Situation: Alone current occupational status: retired How many Children do You have: 2 Feels Safe at Home: Yes Childhood Exposure to Second-Hand Smoke: No Diet: low salt and regular caffeine: No during the past year weight has: remained stable Dental Care, Regularly: No Physical Activity Frequency: 3-4 Times per Week Seatbelt Use: always Do you think of yourself as: straight/heterosexual Gender Identity: Female Assistive Devices: Denture - Upper, Denture - Lower and Glasses Physical Exam Physical Exam: General: A&Ox3. NAD. Cooperative. HEENT: Atraumatic, normocephalic. Vision/hearing and Pulm: Bibasilar crackles that clear on deep inspiration otherwise -wheezes, - rales, -rhonchi. Symmetrical chest rise. No increased work of breathing. No respiratory distress. Does desaturate to 85% on attempted ambulation to the bathroom Cardiac: irir, soft sm. Radial pulses intact and symmetrical. Trace JVD 1-2cm above the clavicle with HJR Abdominal: Nontender, nondistended, soft. BS present. Extremities: Bilateral lower extremity pitting edema right greater than left. Right lower extremity with anterior erythema, warmth, tenderness to palpation asymmetric from the left Results & Data Results & Data Vital Signs (Past 12 Hours) Vital Signs Temp Pulse Pulse Resp BP BP Pulse Ox 06/09/23 12:32 76 18 161/89 H 92 06/09/23 12:01 74 06/09/23 11:12 73 18 93 06/09/23 11:12 73 18 93 06/09/23 10:10 100 06/09/23 10:10 06/09/23 10:10 36.8 C 80 24 189/82 H 94 O2 Del Method O2 Flow Rate 06/09/23 12:32 Room Air 06/09/23 12:01 06/09/23 11:12 Room Air 06/09/23 11:12 Room Air 06/09/23 10:10 Nasal Cannula 4 06/09/23 10:10 Room Air 06/09/23 10:10 Room Air PG Care Time/CCT Total # of Minutes Spent Total Time Spent with Patient: Total time spent is greater than 50% in coordination of care (as documented) at patient's floor/unit and/or counseling patient: Coding Level of Care Code 58940 INT INP/OBS CARE MIN Diagnoses Acute diastolic CHF (congestive heart failure) I50.31 Coronary artery disease involving [place] coronary artery of [place] heart without angina pectoris I25.10 Coronary Disease-Associated Artery/Lesion type: [place] artery [place] vs. transplanted heart: [place] heart Associated angina: without angina New onset a-fib I48.91 CKD (chronic kidney disease), stage IV N18.4 Type 2 diabetes mellitus with neurologic complication, with long-term current use of insulin E11.49; Z79.4 Essential hypertension I10 Hypertension type: essential hypertension Anemia D64.9 Cellulitis of right lower extremity L03.115 (2) CAD (coronary artery disease) Coronary Disease-Associated Artery/Lesion type: [place] artery [place] vs. transplanted heart: [place] heart Associated angina: without angina Qualified Code(s): I25.10 - Atherosclerotic heart disease of [place] coronary artery without angina pectoris (6) Hypertension Hypertension type: essential hypertension Qualified Code(s): I10 - Essential (primary) hypertension
[2023-06-09] MEDS ORDERED: GLUCOSE 40% GEL 15 GM TUBE PO PRN (13:41)
[2023-06-09] MEDS ORDERED: DEXTROSE 50% 50 ML SYRINGE IV PRN (13:41)
[2023-06-09] MEDS ORDERED: GLUCOSE 10 TAB/TUBE PO PRN (13:41)
[2023-06-09] MEDS ORDERED: GLUCAGON FOR INJ 1 MG VIAL SQ PRN (13:41)
[2023-06-09 14:22] LABS: C Reactive Protein < 0.50 mg/dl (0-0.5)
[2023-06-09] MEDS ORDERED: POLYETHYLENE (MIRALAX) 17 GM PACK PO PRN (15:21)
[2023-06-09] MEDS ORDERED: ONDANSETRON 4 MG OD TAB PO PRN (15:21)
[2023-06-09] MEDS ORDERED: FEXOFENADINE 60 MG TAB PO PRN (15:21)
[2023-06-09] MEDS: cefTRIAXone SODIUM 2,000 MG in DEXTROSE 5 % MINI-B 50 ML IV SCH (16:34)
[2023-06-09] MEDS: hydrALAZINE TAB 50 MG TAB PO SCH (16:35)
[2023-06-09] MEDS: INSULIN ASPART PER UNIT CHARGE SC SCH (17:20)
[2023-06-09] MEDS: FUROSEMIDE INJ 20 MG/2 ML VIAL IV SCH (17:20)
[2023-06-09] MEDS: APIXABAN 2.5 MG TAB PO SCH (20:39)
[2023-06-09] MEDS: cilostazoL 100 MG TAB PO SCH (20:39)
[2023-06-09] MEDS: MAGNESIUM OXIDE 400 MG TAB PO SCH (20:40)
[2023-06-09] MEDS: ASPIRIN 81 MG ECTAB PO SCH (20:40)
[2023-06-09] MEDS: ATORVASTATIN 40 MG TAB PO SCH (20:40)
[2023-06-09] MEDS: METOPROLOL SUCC 50MG EXT REL TAB PO SCH (20:40)
[2023-06-09] MEDS: LANTUS PER UNIT CHARGE SQ SCH (22:05)
[2023-06-10 06:14] LABS: Basophils # (auto) 0.01 K/uL (0.00-0.20); Basophils % (auto) 0.2 %; Eosinophils # (auto) 0.11 K/uL (0.00-0.50); Eosinophils % (auto) 1.8 %; Hematocrit (blood only) 28.7 % (37.0-47.0); Hemoglobin 8.9 g/dl (12.0-16.0); Immature Granulocytes # (auto) 0.01 K/uL (0.01-0.20); Immature Granulocytes % (auto) 0.2 %; Lymphocytes # (auto) 0.47 K/uL (1.20-3.40); Lymphocytes % (auto) 7.6 %; Mean Corpuscular Hemoglobin 31.7 pg (25.0-34.0); Mean Corpuscular Volume 102.1 fL (80.0-100.0); Mean Platelet Volume 10.2 fL (9.4-12.4); Monocytes # (auto) 0.69 K/uL (0.11-0.59); Monocytes % (auto) 11.1 %; Neutrophils % (auto) 79.1 %; Platelet Count 205 K/uL (130-400); RDW Standard Deviation 60.2 fL (36.4-46.3); Red Blood Count 2.81 M/uL (4.20-5.40); White Blood Count 6.19 K/ul (4.8-10.8)
[2023-06-10 06:38] LABS: Anion Gap 8 (3-11); Blood Urea Nitrogen 34 mg/dl (6-23); C Reactive Protein < 0.50 mg/dl (0-0.5); Calcium 8.4 mg/dl (8.6-10.3); Carbon Dioxide 25 mmol/L (21-32); Chloride 107 mmol/L (98-107); Creatinine Clr Calc Pharmacy 19.2 ml/min; Est GFR (African American) 19.2 ml/min; Est GFR (Non-African American) 16.6 ml/min; Glucose 41 mg/dl (70-99(Fasting)); Potassium 3.6 mmol/L (3.5-5.1); Sodium 140 mmol/L (136-145)
[2023-06-10] MEDS: CARBOHYDRATES FOR HYPOGLYCEMIA PO PRN (06:45)
[2023-06-10] MEDS: ISOSORBIDE MONO EXTENDED REL 30 MG TABCR PO SCH (08:17)
--- NOTE | 2023-06-10 08:38 | Electrocardiogram Report ---
Test Reason : Blood Pressure : / mmHG Vent. Rate : 075 BPM Atrial Rate : 000 BPM P-R Int : 000 ms QRS Dur : 114 ms QT Int : 392 ms P-R-T Axes : 000 -40 075 degrees QTc Int : 437 ms Sinus rhythm with frequent Premature atrial complexes Left axis deviation Poor R wave progression, consider anterior MD vs. lead placement vs. LVH Abnormal ECG When compared with ECG of 04-SEP-2020 05:23, Premature atrial complexes now present Confirmed by Andi Botello ([id number]) on 06/10/2023 8:38:12 AM Referred By: Confirmed By:Andi Botello
[2023-06-10] MEDS: BUMETANIDE 0.5 MG in SYRINGE 0 ML IV ONE (12:31)
--- NOTE | 2023-06-10 13:43 | XCELERA ---
[id number] \\[id number]
--- NOTE | 2023-06-10 15:42 | Hospitalist Progress Note ---
Date of Service June 10, 2023 Assessment & Plan (1) Acute diastolic CHF (congestive heart failure): Plan: Acute on chronic diastolic CHF perhaps worsened by new onset afib denies dietary indiscretion On Bumex at baseline. BNP is elevated, x-ray shows pulmonary edema iv bumex at double home dose repeat echo shows preserved EF and Diastolic dysfunction II, some elevated pulmonary pressures (2) CAD (coronary artery disease): Plan: - no chest pain, on isosorbide and metoprolol (3) New onset a-fib: Plan: Patient is already on beta-bijal, Eliquis and currently appears rate controlled. No additional pharmacologic changes indicated at this time. Will follow on medical telemetry. Unclear when she switched into A-fib. Magnesium added. If doing well rate controlled can follow-up with cardiology as outpatient (4) CKD (chronic kidney disease), stage IV: Plan: CKD 4 - caution with increased diuretic spironolactone previously stopped due to hyperkalemia (5) Type 2 diabetes mellitus with neurologic complication, with long-term current use of insulin: Plan: DM 2 Continue basal/bolus Due to ER hypoglycemia on admission basal reduced to 45u. Patient had not had breakfast despite taking her Lantus last night, she denies hypoglycemic episodes normally. Goal BSG [id number] Continue correction factor 50/carb ratio 10 (6) Hypertension: Plan: Hypertension JESSICA/ARB deferred due to renal dysfunction, spironolactone previously discontinued due to hyperkalemia Metoprolol, hydralazine, Imdur continued. Bumex swithched to iv (7) Anemia: Plan: Chronic anemia With prior iron studies showing iron saturation 47%, anemia consistent with chronic disease/renally mediated. Receives Procrit as an outpatient Hemoglobin 9.2, microcytic on admission. Near baseline with no active bleeding (8) Cellulitis of right lower extremity: Plan: greatly improved overnight, is leg with vein harvest and previous DVT wonder if volume overload influenced appearance continue antibiotics Plan Chronic, Stable Issues: History of right breast invasive ductal carcinoma: Discontinued tamoxifen in 2022. Continue outpt f/u Adenocarcinoma of ascending colon: S/p hemicolectomy 08/2020. No lymphatic spread. Continue outpatient follow-up DVT PPx: anticoagulated CODE: Full Admission and Anticipated Discharge Date Admission Date: June 09, 2023 Subjective pt states she feels better than on arrival but not at baseline did increase diuretic iv Physical Exam Physical Exam: pt is without significant rales, just at the bases ext with trace edema cardiac is in afib on monitor but sounds regular as is rate controlled Results & Data Results & Data Vital Signs (Past 12 Hours) Vital Signs Temp Pulse Pulse Resp BP Pulse Ox Pulse Ox 06/10/23 15:23 73 06/10/23 15:21 94 06/10/23 14:59 98.2 F 81 18 129/65 91 06/10/23 11:30 98.4 F 78 20 155/64 H 96 06/10/23 10:12 06/10/23 09:18 80 168/75 H 06/10/23 08:06 98.1 F 66 16 193/77 H 100 06/10/23 07:01 60 O2 Del Method O2 Del Method 06/10/23 15:23 06/10/23 15:21 Room Air 06/10/23 14:59 Room Air 06/10/23 11:30 Room Air 06/10/23 10:12 Room Air 06/10/23 09:18 06/10/23 08:06 Room Air 06/10/23 07:01 Laboratory Results review cbc review chemistry PG Care Time/CCT Total # of Minutes Spent Total Time Spent with Patient: Total time spent is greater than 50% in coordination of care (as documented) at patient's floor/unit and/or counseling patient: Coding Level of Care Code 64817 SUB INP/OBS CARE 3/50MIN Diagnoses Acute diastolic CHF (congestive heart failure) I50.31 Coronary artery disease involving [place] coronary artery of [place] heart without angina pectoris I25.10 Coronary Disease-Associated Artery/Lesion type: [place] artery [place] vs. transplanted heart: [place] heart Associated angina: without angina New onset a-fib I48.91 CKD (chronic kidney disease), stage IV N18.4 Type 2 diabetes mellitus with neurologic complication, with long-term current use of insulin E11.49; Z79.4 Essential hypertension I10 Hypertension type: essential hypertension Anemia D64.9 Cellulitis of right lower extremity L03.115 (2) CAD (coronary artery disease) Coronary Disease-Associated Artery/Lesion type: [place] artery [place] vs. transplanted heart: [place] heart Associated angina: without angina Qualified Code(s): I25.10 - Atherosclerotic heart disease of [place] coronary artery without angina pectoris (6) Hypertension Hypertension type: essential hypertension Qualified Code(s): I10 - Essential (primary) hypertension
[2023-06-10] MEDS: BUMETANIDE 1 MG in SYRINGE 0 ML IV SCH (17:23)
[2023-06-10] MEDS: LANTUS PER UNIT CHARGE SQ SCH (21:41)
[2023-06-11 07:19] LABS: Basophils # (auto) 0.01 K/uL (0.00-0.20); Basophils % (auto) 0.2 %; Eosinophils # (auto) 0.15 K/uL (0.00-0.50); Eosinophils % (auto) 2.7 %; Hematocrit (blood only) 26.6 % (37.0-47.0); Hemoglobin 8.5 g/dl (12.0-16.0); Immature Granulocytes # (auto) 0.02 K/uL (0.01-0.20); Immature Granulocytes % (auto) 0.4 %; Mean Corpuscular Hemoglobin 32.2 pg (25.0-34.0); Mean Corpuscular Volume 100.8 fL (80.0-100.0); Mean Platelet Volume 10.4 fL (9.4-12.4); Monocytes # (auto) 0.77 K/uL (0.11-0.59); Monocytes % (auto) 13.8 %; Neutrophils # (auto) 4.11 K/uL (1.40-6.50); Neutrophils % (auto) 73.9 %; Platelet Count 208 K/uL (130-400); RDW Coefficient of Variation 16.3 % (11.5-14.5); RDW Standard Deviation 59.9 fL (36.4-46.3); Red Blood Count 2.64 M/uL (4.20-5.40); White Blood Count 5.56 K/ul (4.8-10.8)
[2023-06-11 07:48] LABS: BUN Creatinine Ratio 12.3 (10-20); Calcium 8.1 mg/dl (8.6-10.3); Creatinine Clr Calc Pharmacy 19.9 ml/min; Est GFR (African American) 19.9 ml/min; Est GFR (Non-African American) 17.2 ml/min
[2023-06-11 08:05] LABS: Vitamin B12 > 1500 pg/ml (180-914)
--- NOTE | 2023-06-11 14:29 | Hospitalist Progress Note ---
Date of Service June 11, 2023 Assessment & Plan (1) Acute diastolic CHF (congestive heart failure): Plan: Acute on chronic diastolic CHF perhaps worsened by new onset afib denies dietary indiscretion On Bumex at baseline. BNP is elevated, x-ray shows pulmonary edema iv bumex at double home dose, will add one dose of metolazone in pm of 06/11/23 repeat echo shows preserved EF and Diastolic dysfunction II, some elevated pulmonary pressures (2) CAD (coronary artery disease): Plan: -remains without chest pain, on isosorbide and metoprolol (3) New onset a-fib: Plan: Patient is already on beta-bijal, Eliquis and currently appears rate controlled. No additional pharmacologic changes indicated at this time. Will follow on medical telemetry. Unclear when she switched into A-fib. Magnesium added. If doing well rate controlled can follow-up with cardiology as outpatient, arrange follow up with HF program (4) CKD (chronic kidney disease), stage IV: Plan: CKD 4, stable with diuresis - caution with increased diuretic spironolactone previously stopped due to hyperkalemia (5) Type 2 diabetes mellitus with neurologic complication, with long-term current use of insulin: Plan: DM 2 Continue basal/bolus Due to ER hypoglycemia on admission basal reduced to 45u. Patient had not had breakfast despite taking her Lantus last night, she denies hypoglycemic episodes normally. Goal BSG 133571 Continue correction factor 50/carb ratio 10 (6) Hypertension: Plan: Hypertension chronic and stable JESSICA/ARB deferred due to renal dysfunction, spironolactone previously discontinued due to hyperkalemia Metoprolol, hydralazine, Imdur continued. Bumex swithched to iv (7) Anemia: Plan: Chronic anemia With prior iron studies showing iron saturation 47%, anemia consistent with chronic disease/renally mediated. Receives Procrit as an outpatient Hemoglobin 9.2, microcytic on admission. Near baseline with no active bleeding (8) Cellulitis of right lower extremity: Plan: greatly improved still with mild redness will dc on antibiotics Plan Chronic, Stable Issues: History of right breast invasive ductal carcinoma: Discontinued tamoxifen in 2022. Continue outpt f/u Adenocarcinoma of ascending colon: S/p hemicolectomy 08/2020. No lymphatic spread. Continue outpatient follow-up DVT PPx: anticoagulated CODE: Full Admission and Anticipated Discharge Date Admission Date: June 09, 2023 Subjective Patient feels improved "3 pounds Still with lower extremity edema and some erythema to her right leg Feels her breathing is better but still has dyspnea on exertion Physical Exam Physical Exam: pt without significant rales, just at the bases ext with trace edema, minor erythema to RLE cardiac is in afib on monitor but sounds regular as is rate controlled Results & Data Results & Data Vital Signs (Past 12 Hours) Vital Signs Temp Pulse Pulse Resp BP Pulse Ox O2 Del Method 06/11/23 11:09 98.4 F 78 20 168/68 H 92 Room Air 06/11/23 07:31 98.8 F 82 20 145/53 H 96 Room Air 06/11/23 07:15 Room Air 06/11/23 07:02 80 06/11/23 02:43 98.6 F 73 18 129/56 L 96 Room Air Laboratory Results Reviewed CBC Chemistry Personally spoke to heart failure program physicians psych assistant PG Care Time/CCT Total # of Minutes Spent Total Time Spent with Patient: Total time spent is greater than 50% in coordination of care (as documented) at patient's floor/unit and/or counseling patient: Coding Level of Care Code 77949 SUB INP/OBS CARE 3/50MIN Diagnoses Acute diastolic CHF (congestive heart failure) I50.31 Coronary artery disease involving [place] coronary artery of [place] heart without angina pectoris I25.10 Coronary Disease-Associated Artery/Lesion type: [place] artery [place] vs. transplanted heart: [place] heart Associated angina: without angina New onset a-fib I48.91 CKD (chronic kidney disease), stage IV N18.4 Type 2 diabetes mellitus with neurologic complication, with long-term current use of insulin E11.49; Z79.4 Essential hypertension I10 Hypertension type: essential hypertension Anemia D64.9 Cellulitis of right lower extremity L03.115 (2) CAD (coronary artery disease) Coronary Disease-Associated Artery/Lesion type: [place] artery [place] vs. transplanted heart: [place] heart Associated angina: without angina Qualified Code(s): I25.10 - Atherosclerotic heart disease of [place] coronary artery without angina pectoris (6) Hypertension Hypertension type: essential hypertension Qualified Code(s): I10 - Essential (primary) hypertension
[2023-06-11] MEDS: metOLazone 5 MG TABLET PO ONE (16:05)
[2023-06-11] MEDS: ACETAMINOPHEN 325 MG TAB PO PRN (22:08)
[2023-06-12 02:38] VITALS: TEMP 98.1
[2023-06-12 04:17] LABS: Basophils # (auto) 0.01 K/uL (0.00-0.20); Basophils % (auto) 0.2 %; Eosinophils # (auto) 0.09 K/uL (0.00-0.50); Eosinophils % (auto) 1.6 %; Hemoglobin 8.4 g/dl (12.0-16.0); Immature Granulocytes # (auto) 0.03 K/uL (0.01-0.20); Immature Granulocytes % (auto) 0.5 %; Lymphocytes # (auto) 0.66 K/uL (1.20-3.40); Mean Corpuscular Hemoglobin 31.7 pg (25.0-34.0); Mean Corpuscular Hgb Conc 31.1 g/dL (32.0-36.0); Mean Corpuscular Volume 101.9 fL (80.0-100.0); Mean Platelet Volume 10.5 fL (9.4-12.4); Monocytes # (auto) 0.77 K/uL (0.11-0.59); Neutrophils # (auto) 3.95 K/uL (1.40-6.50); Neutrophils % (auto) 71.7 %; Platelet Count 208 K/uL (130-400); RDW Coefficient of Variation 16.6 % (11.5-14.5); RDW Standard Deviation 60.6 fL (36.4-46.3); Red Blood Count 2.65 M/uL (4.20-5.40); White Blood Count 5.51 K/ul (4.8-10.8)
[2023-06-12 04:23] LABS: Calcium 7.9 mg/dl (8.6-10.3); Potassium 3.9 mmol/L (3.5-5.1)
[2023-06-12 04:29] LABS: BUN Creatinine Ratio 11.6 (10-20); Creatinine Clr Calc Pharmacy 16.6 ml/min; Est GFR (African American) 16.1 ml/min; Est GFR (Non-African American) 13.9 ml/min
[2023-06-12] MEDS: DICLOFENAC SOD 1% GEL 100 GM TUBE EXT SCH (07:09)
[2023-06-12 07:48] VITALS: BP 144/69; RESP 16; O2SAT 98
[2023-06-12 12:16] VITALS: PULSE 78
--- NOTE | 2023-06-12 12:16 | Heart Failure Consultation ---
Date of Consultation June 12, 2023 Assessment & Plan (1) (HFpEF) heart failure with preserved ejection fraction: (2) New onset a-fib: (3) CKD (chronic kidney disease), stage IV: (4) Chronic anticoagulation: (5) Hypertension: (6) History of coronary artery bypass graft: (7) CAD (coronary artery disease): Plan Patient admitted with HFpEF. She typically follows with Dr. Betancourt. She follows with Dr. Lind for CKD and diuretic management. She appears near euvolemic on exam today. Her symptoms are improved. She is anticipating discharge today. Plan to discharge on Bumex .5 mg BID which is her typical home dose. She can increase to 1 mg BID as needed for worsening symptoms. Plan to formally enroll her in the heart failure program for more intensive management and close follow up. Plan to check BMP/BNP/mag next week. Notify the heart failure program for worsening sy mptoms or weight gain. Not a candidate for SGLT2i due to GFR <20. Continue low sodium diet, daily weights. Follow up with the heart failure program on 06/19/23 at 1300. History of Present Illness Attending Physician: Erik Danielson MD History of Present Illness Patient is an 82 year old female with history of HTN, DM2, CKDIV, HFpEF, CAD/CABG, PVD, DVT (on Eliquis) and new onset afib. Dr. Betancourt is her primary emergency telecommunications dispatcher. Recent cardiac studies: 1. 06/10/23 Echo: LV systolic function is normal. EF 60-65%. No WMA. Mild concentric LVH. Mild [place]. Elevated pulmonary artery end diastolic pressure. Mild MR. Left atrium moderate dilated. She presented with increasing dyspnea on exertion. She was having some edema. Noted in be in new atrial fibrillation in the ED. CXR with pulmonary vascular congestion. She was initially treated with Lasix IV which was later transitioned to Bumex. She had Metolazone x 1 on 06/11/23. BNP 836. Today she is feeling improved. Her breathing is improving. She notes minimal dypsnea while walking around in her room but has not done any distance walking. Her edema is improved. She denies orthopnea or PND. Denies chest pain, cough, or palpitations. Heart rate remains controlled. I&Os are inaccurate with multiple unmeasured voids. Weight 206 standing. Creatinine bumped today and she will be discharged on her previous home dose of Bumex. Allergies Allergy/AdvReac Type Severity Reaction Status Date / Time sulfamethoxazole AdvReac Severe SEVERE Verified 05/10/23 13:39 [From Bactrim] VOMITING trimethoprim [From Bactrim] AdvReac Severe SEVERE Verified 05/10/23 13:39 VOMITING JESSICA Inhibitors AdvReac Intermediate ARF Verified 05/10/23 13:39 spironolactone AdvReac Intermediate Hyperkalemi Verified 05/10/23 13:39 a diclofenac AdvReac Mild ankle Verified 05/10/23 13:39 swelling iron AdvReac Mild nausea/ Verified 05/10/23 13:39 VOMITING Home Medications Medication Instructions Recorded Confirmed Type cyanocobalamin (vitamin B-12) 1,000 mcg PO QAM 12/28/17 06/13/23 History 1,000 mcg capsule magnesium oxide 400 mg PO BID 12/28/17 06/13/23 History omega 5-yom-ucb-fish oil 1,000 mg 1 cap PO QPM 12/28/17 06/13/23 History (120 mg-180 mg) capsule (Fish Oil) fexofenadine 60 mg tablet (Gabby 60 mg PO DAILY PRN Allergy Symptoms 10/02/18 06/13/23 History Allergy) pen needle, diabetic 31 gauge x #30 ea 11/22/18 06/13/23 History 5/16" (BD Ultra-Fine Short Pen Needle) aspirin 81 mg tablet,delayed 81 mg PO QPM 07/15/20 06/13/23 History release epoetin jase 2,000 unit/mL 2,000 unit subcut .[id number] 12/02/20 06/13/23 History injection solution (Procrit) insulin aspart U-100 100 unit/mL See Rx Instructions subcut TID #60 08/16/21 06/13/23 Rx (3 mL) subcutaneous pen (Novolog mL FlexPen U-100 Insulin aspart) isosorbide mononitrate 30 mg 30 mg PO QAM #90 tabs 12/25/22 06/13/23 Rx tablet,extended release 24 hr isosorbide mononitrate 60 mg 60 mg PO QAM #90 tabs 12/25/22 06/13/23 Rx tablet,extended release 24 hr hydralazine 100 mg tablet 100 mg PO TID #270 tabs 12/28/22 06/13/23 Rx alendronate 70 mg tablet (Fosamax) 70 mg PO WEEKLY #12 tabs 01/23/23 06/13/23 Rx apixaban 2.5 mg tablet (Eliquis) 2.5 mg PO BID #180 tabs 01/29/23 06/13/23 Rx bumetanide 0.5 mg tablet 0.5 mg PO BID #120 tabs 05/15/23 06/13/23 Rx atorvastatin 40 mg tablet 40 mg PO HS #90 tabs 05/23/23 06/13/23 Rx cilostazol 100 mg tablet 100 mg PO BID #180 tabs 06/05/23 06/13/23 Rx ketoconazole 2 % topical cream 1 applic topical BID PRN Other 06/09/23 06/13/23 History mupirocin 2 % topical ointment 1 applic topical BID PRN Other 06/09/23 06/13/23 History nystatin 100,000 unit/gram topical 1 applic topical BID PRN Other 06/09/23 06/13/23 History cream amoxicillin 875 mg-potassium 1 tab PO BID #10 tabs 06/12/23 06/13/23 Rx clavulanate 125 mg tablet diclofenac sodium 1 % topical gel 2 g topical QID PRN arthritic pain 06/12/23 06/13/23 Rx (Voltaren Arthritis Pain) #100 grams calcitriol 0.25 mcg capsule 0.25 mcg PO DAILY 06/13/23 06/13/23 History (Rocaltrol) insulin glargine 100 unit/mL (3 40 unit (0.4 mL) subcut HS #60 mL 06/13/23 06/13/23 Rx mL) subcutaneous pen (Lantus Solostar U-100 Insulin) metoprolol succinate 200 mg 200 mg PO BID #180 tabs 06/13/23 06/13/23 Rx tablet,extended release 24 hr Patient History Medical History (Updated 06/12/23 @ 16:20 by Radha Sherman PA-C) Right knee DJD History of colon cancer 2020- adenocarcinoma Chronic anticoagulation Small bowel obstruction 2020 > after colon surgery Ileus Encounter for pre-operative examination Anemia Mild- has been evaluated by heme/onc for recent dx colon cancer Hx of breast cancer right breast (Jun 2018). surgical intervention + radiation therapy DVT (deep venous thrombosis) Right upper leg DVT -- March 2020 -- placed on eliquis.-NO ISSUES SINCE Recent u/s from 07/07/20= shows continued evidence of right common femoral DVT. Osteoporosis Lumbar spinal stenosis Edema Peripheral vascular disease Hypertension Hx of acute respiratory failure WITH GB SURG 04/21/09 [facility] POST OP RESPIRATORY FAILURE-HAD TO BE VENTILATED,EXTUBATED NEXT DAY-PER PT SLOW TO WAKE UP IN GENERAL Right breast partial mastectomy 08/29/18 under [place] with LMA #4 x 3 attempts- atraumatic with good seal- no other issues noted CAD (coronary artery disease) s/p 3 vessel CABG 2006 Osteoarthritis Venous stasis dermatitis LLE Chronic kidney disease STAGE 3-FOLLOWS WITH DR LIND Last seen by nephro 07/20/20- kidney function stable at that time Hyperlipidemia Surgical History Hx of colonoscopy Hx of lymph node excision right axillary History of left knee replacement Status post dilation and curettage 08/26/20 Dr. Cathy Calderon- Hysteroscopy, Dilation and Curettage, Possible Polypectomy S/P laparoscopic colectomy (08/26/20) Laparoscopic Extended Hemicolectomy, Extensive enterolysis - Sohail Quiroga DO History of esophagogastroduodenoscopy (EGD) S/P epidural steroid injection History of partial mastectomy of right breast no chemo, just radiation Status post trigger finger release X2 History of total knee replacement LEFT 2018 History of adverse response to anesthesia SLOW TO WAKE. PT HAD RESP FAILURE S/P KYLAH IN 2008 History of Moh's micrographic surgery for skin cancer S/P tendon repair R ARM History of cholecystectomy History of dilatation and curettage History of bilateral tubal ligation History of cataract surgery BL History of coronary artery bypass graft 3 VESSELS 2006-[facility] [place] History of cardiac cath 2006 NO STENTS-[facility] Family History Mother , age 38 heart disease due to rheumatic fever No problems noted. Father , age 73 heart disease No problems noted. Sister No problems noted. Sister No problems noted. Sister No problems noted. Sister No problems noted. Sister No problems noted. Daughter Myocardial infarction Breast cancer Family history of reaction to anesthesia SLOW TO WAKE UP/PONV Daughter Heart disease Other No family history of adverse response to anesthesia Denies family history of Ovarian cancer Prostate cancer Colorectal cancer Social History Smoking Status: Never smoker Second Hand Exposure: No; Do You Dip or Chew Tobacco: No; Hx Alcohol Use: No Hx Substance Use: No Preferred Language: Wolof Communication Ability: Effective Visual Impairment: Limited Hearing Ability: Normal Project Leader Required: No Beliefs That Will Affect Care: None marital status: / Current Living Situation: Alone current occupational status: retired How many Children do You have: 2 Feels Safe at Home: Yes Childhood Exposure to Second-Hand Smoke: No Diet: low salt and regular caffeine: No during the past year weight has: remained stable Dental Care, Regularly: No Physical Activity Frequency: 3-4 Times per Week Seatbelt Use: always Do you think of yourself as: straight/heterosexual Gender Identity: Female Assistive Devices: Walker Physical Exam Physical Exam: Constitutional: Alert, oriented, in no acute distress HEENT: Head is atraumatic and normocephalic. EOMs intact. Sclera anicteric. Face is symmetric. No perioral cyanosis. Mucous membranes moist. Neck: Supple, no JVD Pulmonary: Normal respiratory effort, clear to auscultation bilaterally Cardiac: Irregular rate and rhythm. Normal S1 and S2, no gallops, no rubs, no murmurs Extremities: 2+ radial pulses bilaterally. 2+ posterior tibialis pulses bilaterally. No pitting edema. No cyanosis or clubbing. Abdomen: Normal bowel sounds, soft, non-tender, no abdominal mass palpated Skin: Normal skin color, turgor, and pigmentation, no rash, no skin lesions Neurological: Patient is awake, alert, and oriented. Pleasant and cooperative. Answers questions appropriately. Speech is clear. Normal movement in all 4 extremities. Results & Data Vital Signs (Past 12 Hours) Vital Signs Temp Pulse Resp BP Pulse Ox O2 Del Method 06/12/23 07:47 98.1 F 73 16 144/69 H 98 Room Air 06/12/23 07:33 Room Air 06/12/23 02:37 98.1 F 71 18 133/55 L 93 Room Air 06/12/23 00:17 98.2 F 84 18 99/62 L 95 Room Air Coding Diagnoses (HFpEF) heart failure with preserved ejection fraction I50.30 New onset a-fib I48.91 CKD (chronic kidney disease), stage IV N18.4 Chronic anticoagulation Z79.01 Essential hypertension I10 Hypertension type: essential hypertension History of coronary artery bypass graft Z95.1 Coronary artery disease involving [place] coronary artery of [place] heart without angina pectoris I25.10 Associated angina: without angina Coronary Disease-Associated Artery/Lesion type: [place] artery [place] vs. transplanted heart: [place] heart (5) Hypertension Hypertension type: essential hypertension Qualified Code(s): I10 - Essential (primary) hypertension (7) CAD (coronary artery disease) Associated angina: without angina Coronary Disease-Associated Artery/Lesion type: [place] artery [place] vs. transplanted heart: [place] heart Qualified Code(s): I25.10 - Atherosclerotic heart disease of [place] coronary artery without angina pectoris
--- NOTE | 2023-06-12 18:36 | Discharge Summary ---
Date of Service June 12, 2023 Admission HPI Per Admitting Provider Joseline is a 82-year-old female with past medical history of CABG, CKD, hyperlipidemia, hypercalcemia, type 2 diabetes mellitus, PVD, DVT on Eliquis who presents with shortness of breath/dyspnea. Patient was found to be in A-fib while in the ER. Chest x-ray shows pulmonary vascular congestion and patient was treated with Lasix. Patient was hypoglycemic at 53 and received dextrose Exertional dyspnea x3 days. on eliquis for DVT but no history of afib to her knowledge. She has not had chest pain at any point. She has not had fever, chills, sweats. She notes her right leg swells more than her left leg due to vein harvest in that leg, however has been an unusually tender and warm. It is more swollen than normal currently. She denies nausea, vomiting, diarrhea, constipation. Has no abdominal pain at time of admission. She has had some lightheadedness but no syncope. She did take her morning medications todayBaseline weight is around 54-56 kg, is currently 56.8 kg Medical History: Reviewed Medications: Reviewed Surgical History: Reviewed Family history: Reviewed Allergies: Reviewed Social History: Denies tobacco/etoh Code Status: Full Principal Diagnosis Acute on chronic diastolic heart failure Diagnosis of atrial fibrillation controlled ventricular rate Right lower extremity cellulitis associate with chronic venous stasis Discharge Exam Patient's cardiac exam is rate controlled and has been so during her stay. Patient is improved rales with now resolution a day of discharge Her lower extremity shows changes of chronic venous stasis but lessened erythema and edema Discharge Data Allergies Allergy/AdvReac Type Severity Reaction Status Date / Time sulfamethoxazole AdvReac Severe SEVERE Verified 05/10/23 13:39 [From Bactrim] VOMITING trimethoprim [From Bactrim] AdvReac Severe SEVERE Verified 05/10/23 13:39 VOMITING JESSICA Inhibitors AdvReac Intermediate ARF Verified 05/10/23 13:39 spironolactone AdvReac Intermediate Hyperkalemi Verified 05/10/23 13:39 a diclofenac AdvReac Mild ankle Verified 05/10/23 13:39 swelling iron AdvReac Mild nausea/ Verified 05/10/23 13:39 VOMITING Consultations 06/09/23 12:42 ED Decision to Admit Stat 06/11/23 14:28 [facility] [place] CHF Program Referral Routine Hospital Course (1) Acute diastolic CHF (congestive heart failure): Acute on chronic diastolic CHF perhaps worsened by new onset afib denies dietary indiscretion On Bumex at baseline. BNP is elevated, x-ray shows pulmonary edema Robust diuresis with addition of metolazone x 1 dose in the evening of 2/5. A.m. dose of Bumex held due to acute kidney injury. We will resume her home Bumex dosing at 0.5 twice daily enroll her in cardiac heart failure clinic encouraged to have daily weights and check a renal profile on 06/15/2023 with results to both cardiology and nephrology repeat echo shows preserved EF and Diastolic dysfunction II, some elevated pulmonary pressures (2) CAD (coronary artery disease): -remains without chest pain, on isosorbide and metoprolol (3) New onset a-fib: Patient is already on beta-bijal, Eliquis and currently appears rate controlled. No additional pharmacologic changes indicated at this time. No signs of tachyarrhythmia while on telemetry unclear when she switched into A- fib. Magnesium added. May consider outpatient monitoring to determine if tachyarrhythmia precipitated diastolic heart failure (4) CKD (chronic kidney disease), stage IV: CKD 4, stable with diuresis, did have some acute kidney injury prior to discharge with manipulation of diuretics and repeat outpatient chemistry on 06/15/2023 - spironolactone previously stopped due to hyperkalemia (5) Type 2 diabetes mellitus with neurologic complication, with long-term current use of insulin: DM 2 Return to home diabetes management with basal bolus insulin (6) Hypertension: Hypertension chronic and stable JESSICA/ARB deferred due to renal dysfunction, spironolactone previously discontinued due to hyperkalemia Metoprolol, hydralazine, Imdur continued. Bumex twice daily dosing 0.5 (7) Anemia: Chronic anemia With prior iron studies showing iron saturation 47%, anemia consistent with chronic disease/renally mediated. Receives Procrit as an outpatient Hemoglobin 9.2, microcytic on admission. Near baseline with no active bleeding (8) Cellulitis of right lower extremity: greatly improved still with mild redness will dc on antibioticsAugmentin Plan Chronic, Stable Issues: History of right breast invasive ductal carcinoma: Discontinued tamoxifen in 2022. Continue outpt f/u Adenocarcinoma of ascending colon: S/p hemicolectomy 08/2020. No lymphatic spread. Continue outpatient follow-up CODE: Full Total Time Total Time Spent Total Time Spent (In Minutes): It required greater than 30 minutes to prepare this patient for discharge. Discharge Plan Discharge Items Patient Disposition: Home - Self-Care Reason For Visit: CHF, NEW AFIB Discharge Diagnosis: diastolic heart failure atrial fibrillation chronic venous stasis dosing cellulitis improved Activity: Resume your previous activity Non-emergency contact: Primary Care Provider and Fire Safety Inspector Call non-emergency contact if: your symptoms worsen Follow-up/Referrals: Isaura Rashid CRNP [Primary Care Provider] - 06/19/23 10:30 am Radha Sherman PA-C [Physician Census Taker] - 06/19/23 2:00 pm Diet: Low Sodium (2gm) Ambulatory Orders: Basic Metabolic Panel (Routine) Timeframe: 3 Days Location: Determined by Patient Ordered By: Erik Laguna Attending Provider Instructions: Call 911 and go to the Emergency Room if: * You have tightness or pain in your chest that does not go away with rest or Nitroglycerin * You are very short of breath even with rest Call your doctor if any of the following symptoms or problems start or get worse: * Shortness of breath or difficulty breathing * Wake up at night short of breath * Chest pain * Cough * Swelling of your hands, fee, or legs * More fatigued or tired with your normal activity * Palpitations - sudden fast heart beats WEIGHT * Weigh yourself every morning after using the bathroom. * Use the same scale. * Wear the same amount of clothing. * Write your weight down on your chart. * Call your doctor if you gain more than 2-3 pounds in 1-2 days. MEDICATIONS * Use this discharge instruction sheet for instructions. * Take your medications at the time your doctor ordered. * Do not skip a dose of your medicines. * If you miss a dose of medicine, take as soon as possible, but DO NOT DOUBLE A DOSE. * Read your medicine information when you get home. * Know all of the side effects of your medicine. * Call your doctor's office if you have any side effects. * Be sure all of your doctors know what medicine and herbs you take (including cold, flu, and herbal medicine). * Pain Medicine: If you do not get relief from your pain, please call your doctor for help. Take the following with you to your follow-up doctor appointments: * Weight Chart * Medication List * List of questions Do not drink excessive alcohol, beer or wine. Addtl Whipper Beater Provider Instructions: if your weight goes up 3 pound take one extra dos of bumex that day , if it does not go down the next day call the heart clinic and discuss with Katherine or if on the weekend speak to the on site nurse online merchandiser Pending Studies at Discharge: No Stand-Alone Forms: My [facility] Transfer To, Smoking Cessation Medications and DC Order Prescriptions: New amoxicillin-pot clavulanate 875-125 mg tablet 1 tab PO BID Qty: 10 0RF diclofenac sodium [Voltaren Arthritis Pain] 1 % gel 2 g topical QID PRN (Reason: arthritic pain ) Qty: 100 3RF Rx Instructions: apply to single elbow, wrist or hand; for hand includes palm/fingers/back of hand Continued Procrit 2,000 unit/mL solution 2,000 unit subcut .[id number] insulin aspart U-100 [Novolog FlexPen U-100 Insulin] 100 unit/mL (3 mL) insulin pen See Rx Instructions SQ TID Qty: 60 3RF Rx Instructions: use per sliding scale up to 60 units daily SQ insulin glargine [Lantus Solostar U-100 Insulin] 100 unit/mL (3 mL) insulin pen 55 unit subcut HS Qty: 60 3RF isosorbide mononitrate 60 mg tablet extended release 24 hr 60 mg PO QAM Qty: 90 3RF Rx Instructions: takes with 30mg tablet for a total dose of 90mg isosorbide mononitrate 30 mg tablet extended release 24 hr 30 mg PO QAM Qty: 90 3RF Rx Instructions: 30 mg PO daily along w/60 mg tablet (total 90 mg each morning); hydralazine 100 mg tablet 100 mg PO TID Qty: 270 3RF alendronate [Fosamax] 70 mg tablet 70 mg PO WEEKLY Qty: 12 3RF metoprolol succinate 200 mg tablet extended release 24 hr 200 mg PO BID Qty: 180 3RF Rx Instructions: Discontinue prescription for 150 mg metoprolol BID bumetanide 0.5 mg tablet 0.5 mg PO BID Qty: 120 3RF atorvastatin 40 mg tablet 40 mg PO HS Qty: 90 3RF cilostazol 100 mg tablet 100 mg PO BID Qty: 180 3RF Rx Instructions: TAKE 1 TABLET TWICE A DAY aspirin 81 mg tablet,delayed release (DR/EC) 81 mg PO QPM Eliquis 2.5 mg tablet 2.5 mg PO BID Qty: 180 3RF Rx Instructions: Stop apixiban 5 mg BID (DME) pen needle, diabetic [BD Ultra-Fine Short Pen Needle] 31 gauge x 5/16" needle See Dose Instructions .ROUTE .MEDSUPPLY Qty: 30 Rx Instructions: use 1 needle 4 x daily omega 3-vbm-lqe-fish oil [Fish Oil] 1,000 mg (120 mg-180 mg) Capsule 1 cap PO QPM cyanocobalamin (vitamin B-12) 1,000 mcg Capsule 1,000 mcg PO QAM magnesium oxide 400 mg Capsule 400 mg PO BID fexofenadine [Gabby Allergy] 60 mg tablet 60 mg PO DAILY PRN (Reason: Allergy Symptoms) ondansetron 4 mg tablet,disintegrating 4 mg PO Q6H PRN (Reason: nausea and vomiting) Qty: 14 0RF diclofenac sodium [Voltaren] 1 % Gel 2 g TOPICAL BID PRN (Reason: Pain) nystatin 100,000 unit/gram cream 1 applic topical BID PRN (Reason: Other) Rx Instructions: Apply to groin area. mupirocin 2 % ointment 1 applic topical BID PRN (Reason: Other) ketoconazole 2 % cream 1 applic topical BID PRN (Reason: Other) Rx Instructions: Apply to affected area. calcitriol [Rocaltrol] 0.25 mcg capsule 0 mcg PO DAILY Rx Instructions: isnt sure of this one Saccharomyces boulardii [Florastor] 250 mg capsule 0 mg PO BID Rx Instructions: isnt sure of this one. swallow whole Discharge Orders: Discharge Order (Routine); Ordered 06/12/23 Ordered By: Erik Danielson Admission Data Admit Date/Time: 06/11/23 15:28 Attending Provider: Erik Danielson Admit Provider: Erik Danielson Primary Care Provider: Isaura Rashid Other Providers: Donaldo Guzman; Radha Sherman Other Interventions: Discharge Summary Assessment (RN) Last Done: 06/12/23 12:16 Coding Level of Care Code 66619 INP/OBS DISCH >30 MIN Diagnoses Acute diastolic CHF (congestive heart failure) I50.31 Coronary artery disease involving [place] coronary artery of [place] heart without angina pectoris I25.10 Coronary Disease-Associated Artery/Lesion type: [place] artery [place] vs. transplanted heart: [place] heart Associated angina: without angina New onset a-fib I48.91 CKD (chronic kidney disease), stage IV N18.4 Type 2 diabetes mellitus with neurologic complication, with long-term current use of insulin E11.49; Z79.4 Essential hypertension I10 Hypertension type: essential hypertension Anemia D64.9 Cellulitis of right lower extremity L03.115
== END 2023-06-12 13:01 | disposition home or self-care (01) | DRG 291 ==
LOC: ED 10:02 → 2W 10:02 → SUATTDRO 13:18 → 2W 15:13

== ENCOUNTER 2023-06-13 17:14 | Observation (INO) ==
--- NOTE | 2023-06-13 17:21 | ED Triage Note ---
Date of Service June 13, 2023 Provider in Triage Author: Latoya Dsouza History of Present Illness This patient was briefly evaluated while in triage. An abbreviated physical exam was performed. This patient is a 82-year-old Female who presents to the ED for evaluation of left hand and wrist numbness. She was just discharged yesterday for increased fluid per patient. She apparently had the symptoms in the left hand and wrist before she was discharged per her daughter that then resolved. The symptoms then returned this morning. Denies any other neurological symptoms. Physical Exam GENERAL: Non-toxic and in no acute distress. HEENT: Pupils equal. No obvious scleral icterus. HEART: Regular rate and rhythm. LUNGS: Clear to auscultation. No accessory muscle use. NEURO: Alert and oriented. No obvious neurological deficits on quick neuro exam. MUSCULOSKELETAL: Tender to palpation over the left wrist and forearm. There is some edema of the left forearm and wrist noted. Initial orders for labs and / or imaging were placed and patient was placed in the waiting area until a bed is available. Please see further documentation for the full ED course. MDM / Impression Impression Impression: Brain TIA, Paresthesia
--- NOTE | 2023-06-13 18:07 | XRay Report ---
XR wrist LT min 3V routine HISTORY: 82 years-old Female Wrist pain acute left wrist pain without reported trauma COMPARISON: None TECHNIQUE: 4 views of the left wrist FINDINGS: Chondrocalcinosis. Arterial calcifications. Mild to moderate osteoarthritis. Subcortical cystic madden es of the scaphoid. No acute fracture, dislocation or osseous erosion. Moderate dorsal soft tissue sw elling. IMPRESSION: Soft tissue swelling without acute fracture or dislocation. ACT 112: Negative or not required by law. The above report was generated using voice recognition software. It may contain grammatical, syntax o r spelling errors. Electronically signed by: Pancho Alvarado M.D. 06/13/2023 6:06 PM
--- NOTE | 2023-06-13 21:21 | Ultrasound Report ---
Exam(s): US VENOUS LEFT UPPER EXTREMITY EXAM: US Duplex Left Upper Extremity Veins CLINICAL HISTORY: Eval DVT. TECHNIQUE: Real-time duplex ultrasound scan of the left upper extremity veins integrating B-mode two-dimensional vascular structure, Doppler spectral analysis, color flow Doppler imaging and compression. COMPARISON: No relevant prior studies available. FINDINGS: Deep veins: Unremarkable. No DVT in the internal jugular, subclavian, axillary, or brachial veins. The veins demonstrate normal color flow, are normally compressible, with normal phasic flow and/or augmentation response. The radial and ulnar veins are patent. Superficial veins: Short segment occlusion with echogenic material in the left cephalic vein in the proximal forearm. The basilic vein is patent. Soft tissues: No acute findings. IMPRESSION: 1. No evidence for deep vein thrombosis involving the left upper extremity. 2. Short segment occlusion with echogenic material in the left cephalic vein in the proximal forearm. Electronically signed by: Sohail Hills MD 06/13/23 21:20 PM
[2023-06-13 21:52] LABS: BUN Creatinine Ratio 13.6 (10-20); Calcium 8.2 mg/dl (8.6-10.3); Creatinine Clr Calc Pharmacy 15.5 ml/min; Est GFR (African American) 14.8 ml/min; Est GFR (Non-African American) 12.7 ml/min; Potassium 3.9 mmol/L (3.5-5.1)
--- NOTE | 2023-06-13 21:55 | CT Scan Report ---
Exam(s): CT HEAD Without Contrast EXAM: CT Head Without Intravenous Contrast CLINICAL HISTORY: paresthesias LUE. TECHNIQUE: Axial computed tomography images of the head/brain without intravenous contrast. CTDI is 38.31 mGy and DLP is 624.41 mGy-cm. Automated exposure control was utilized for the study. A dose lowering technique was utilized adhering to the principles of ALARA. COMPARISON: No relevant prior studies available. FINDINGS: Brain: There are a few areas of decreased attenuation in the deep cerebral white matter consistent with mild small vessel ischemic/degenerative changes. The cerebral and cerebellar sulci are mildly prominent consistent with mild brain atrophy. No hemorrhage. No mass effect. No cortical infarct. Ventricles: Unremarkable. No ventriculomegaly. Bones/joints: Unremarkable. No acute fracture. Soft tissues: Unremarkable. Vasculature: Atherosclerotic disease. Sinuses: Unremarkable as visualized. No acute sinusitis. Mastoid air cells: Unremarkable as visualized. No mastoid effusion. IMPRESSION: No acute intracranial process identified. Chronic appearing underlying presumed age-related findings, as detailed above. Electronically signed by: Sohail Hills MD 06/13/23 21:54 PM
[2023-06-13 22:03] LABS: INR 0.9 (0.9-1.1); Partial Thromboplastin Ratio 0.7; Partial Thromboplastin Time 21 Seconds (21-31); Prothrombin Time 10.2 Seconds (9.0-12.0)
[2023-06-13 22:23] LABS: Basophils # (auto) 0.01 K/uL (0.00-0.20); Basophils % (auto) 0.2 %; Eosinophils # (auto) 0.11 K/uL (0.00-0.50); Eosinophils % (auto) 2.3 %; Hematocrit (blood only) 27.7 % (37.0-47.0); Hemoglobin 8.7 g/dl (12.0-16.0); Immature Granulocytes # (auto) 0.01 K/uL (0.01-0.20); Immature Granulocytes % (auto) 0.2 %; Lymphocytes # (auto) 0.49 K/uL (1.20-3.40); Lymphocytes % (auto) 10.3 %; Mean Corpuscular Hemoglobin 31.4 pg (25.0-34.0); Mean Corpuscular Hgb Conc 31.4 g/dL (32.0-36.0); Mean Platelet Volume 11.5 fL (9.4-12.4); Monocytes % (auto) 16.8 %; Neutrophils # (auto) 3.34 K/uL (1.40-6.50); Neutrophils % (auto) 70.2 %; Platelet Count 127 K/uL (130-400); Platelet Estimate Normal (Normal); RDW Coefficient of Variation 16.4 % (11.5-14.5); RDW Standard Deviation 59.8 fL (36.4-46.3); Red Blood Count 2.77 M/uL (4.20-5.40); White Blood Count 4.76 K/ul (4.8-10.8)
--- NOTE | 2023-06-13 22:53 | History & Physical Report ---
Date of Service June 13, 2023 Assessment & Plan (1) (HFpEF) heart failure with preserved ejection fraction: (2) Cellulitis of right lower extremity: (3) New onset a-fib: (4) Acute diastolic CHF (congestive heart failure): (5) DVT (deep venous thrombosis): (6) Right knee DJD: (7) PVD (peripheral vascular disease): (8) Type 2 diabetes mellitus with neurologic complication, with long-term current use of insulin: Plan Left Hand/Upper Extremity Numbness -Rule out TIA. CT head in ED without acute abnormalities -MRA head w/o contrast pending(no contrast due to CKD) -Carotid dopplers pending -Maintain anticoagulation with home Eliquis -Left UE Venous Duplex: No evidence for deep vein thrombosis involving the left upper extremity. Short segment occlusion with echogenic material in the left cephalic vein in the proximal forearm. CHF -Continue Bumex -Echo completed at last admission, shows preserved EF and Diastolic dysfunction II, some elevated pulmonary pressures -Follow with [facility] as outpatient CAD (coronary artery disease) -Continue Isosorbide and metoprolol Atrial Fibrillation -New onset at recent admission -Continue beta bijal, Eliquis (renally dose) CKD (chronic kidney disease), stage IV -Cr 3.24 bumped slightly since discharge (3.02 on day of discharge) -Renally dose medications, avoid nephrotoxins Type 2 Diabetes Mellitus -Continue basal/bolus insulin -Goal BSG [id number] -Continue correction factor 50/carb ratio 10 Hypertension -JESSICA/ARB deferred due to renal dysfunction, spironolactone previously discontinued due to hyperkalemia -Metoprolol, hydralazine, Imdur, Bumex continued Chronic anemia -With prior iron studies showing iron saturation 47%, anemia consistent with chronic disease/renally mediated. Receives Procrit as an outpatient -Hemoglobin 8.7 on admission, monitor daily CBC while admitted Cellulitis of right lower extremity -Treated during recent admission, discharged on Augmentin -Will continue Augmentin during admission Chronic, Stable Issues: History of right breast invasive ductal carcinoma: Discontinued tamoxifen in 2022. Continue outpt f/u Adenocarcinoma of ascending colon: S/p hemicolectomy 08/2020. No lymphatic spread. Continue outpatient follow-up Code Status: Full Code Diet: Heart healthy, carb consistent VTE Prophylaxis: Eliquis History of Present Illness Primary Care Provider: MATT Pelletier Patricia Unger is a 82 year-old female with a past medical history of CABG, CKD, hyperlipidemia, hypercalcemia, type 2 diabetes mellitus, PVD, DVT on Eliquis who presented to the ED with concern of left hand numbness/tingling and weakness. She was recently discharged from [facility] on 06/12 for CHF exacerbation and LE cellulitis. She notes that she awoke on the morning of 06/13 with her hand feeling numb and weak, states it felt like "pins and needles" and it was difficult to wash her hair, etc. with that hand. She denies any weakness or focal symptoms in any other extremity and has not had slurred speech. She notes that she did have some pain in her left hand overnight on her recent admission, but felt it was from her osteoarthritis. She states that since the symptoms started this morning, they have stayed "about the same." She denies any chest pain or shortness of breath, states that otherwise she has been feeling well since her recent discharge. ED Course: -XR Hand -UE Venous Doppler -CBC, CMP Allergies Allergy/AdvReac Type Severity Reaction Status Date / Time spironolactone AdvReac Severe Hyperkalemi Verified 06/13/23 21:01 a sulfamethoxazole AdvReac Severe SEVERE Verified 06/13/23 21:01 [From Bactrim] VOMITING trimethoprim [From Bactrim] AdvReac Severe SEVERE Verified 06/13/23 21:01 VOMITING JESSICA Inhibitors AdvReac Intermediate ARF Verified 06/13/23 21:01 diclofenac AdvReac Intermediate ankle Verified 06/13/23 21:01 swelling iron AdvReac Intermediate nausea/ Verified 06/13/23 21:01 VOMITING Home Medications Medication Instructions Recorded Confirmed Type cyanocobalamin (vitamin B-12) 1,000 mcg PO QAM 12/28/17 06/13/23 History 1,000 mcg capsule magnesium oxide 400 mg PO BID 12/28/17 06/13/23 History omega 0-yof-dfo-fish oil 1,000 mg 1 cap PO QPM 12/28/17 06/13/23 History (120 mg-180 mg) capsule (Fish Oil) fexofenadine 60 mg tablet (Gabby 60 mg PO DAILY PRN Allergy Symptoms 10/02/18 06/13/23 History Allergy) pen needle, diabetic 31 gauge x #30 ea 11/22/18 06/13/23 History 5/16" (BD Ultra-Fine Short Pen Needle) aspirin 81 mg tablet,delayed 81 mg PO QPM 07/15/20 06/13/23 History release epoetin jase 2,000 unit/mL 2,000 unit subcut .[id number] 12/02/20 06/13/23 History injection solution (Procrit) insulin aspart U-100 100 unit/mL See Rx Instructions subcut TID #60 08/16/21 0 06/13/23 Rx (3 mL) subcutaneous pen (Novolog mL FlexPen U-100 Insulin aspart) isosorbide mononitrate 30 mg 30 mg PO QAM #90 tabs 12/25/22 06/13/23 Rx tablet,extended release 24 hr isosorbide mononitrate 60 mg 60 mg PO QAM #90 tabs 12/25/22 06/13/23 Rx tablet,extended release 24 hr hydralazine 100 mg tablet 100 mg PO TID #270 tabs 12/28/22 06/13/23 Rx apixaban 2.5 mg tablet (Eliquis) 2.5 mg PO BID #180 tabs 01/29/23 06/13/23 Rx bumetanide 0.5 mg tablet 0.5 mg PO BID #120 tabs 05/15/23 06/13/23 Rx atorvastatin 40 mg tablet 40 mg PO HS #90 tabs 05/23/23 06/13/23 Rx cilostazol 100 mg tablet 100 mg PO BID #180 tabs 06/05/23 06/13/23 Rx ketoconazole 2 % topical cream 1 applic topical BID PRN Other 06/09/23 06/13/23 History mupirocin 2 % topical ointment 1 applic topical BID PRN Other 06/09/23 06/13/23 History nystatin 100,000 unit/gram topical 1 applic topical BID PRN Other 06/09/23 06/13/23 History cream amoxicillin 875 mg-potassium 1 tab PO BID #10 tabs 06/12/23 06/13/23 Rx clavulanate 125 mg tablet diclofenac sodium 1 % topical gel 2 g topical QID PRN arthritic pain 02/06/24 02/07/24 Rx (Voltaren Arthritis Pain) #100 grams alendronate 70 mg tablet (Fosamax) 70 mg PO WK 06/13/23 06/13/23 History calcitriol 0.25 mcg capsule 0.25 mcg PO DAILY 06/13/23 06/13/23 History (Rocaltrol) insulin glargine 100 unit/mL (3 40 unit (0.4 mL) subcut HS #60 mL 06/13/23 06/13/23 Rx mL) subcutaneous pen (Lantus Solostar U-100 Insulin) metoprolol succinate 200 mg 200 mg PO BID #180 tabs 06/13/23 06/13/23 Rx tablet,extended release 24 hr Past Med/Surg History Medical History Right knee DJD History of colon cancer 2020- adenocarcinoma Chronic anticoagulation Small bowel obstruction 2020 > after colon surgery Ileus Encounter for pre-operative examination Anemia Mild- has been evaluated by heme/onc for recent dx colon cancer Hx of breast cancer right breast (Jun 2018). surgical intervention + radiation therapy DVT (deep venous thrombosis) Right upper leg DVT -- March 2020 -- placed on eliquis.-NO ISSUES SINCE Recent u/s from 07/07/20= shows continued evidence of right common femoral DVT. Osteoporosis Lumbar spinal stenosis Edema Peripheral vascular disease Hypertension Hx of acute respiratory failure WITH GB SURG 04/21/09 [facility] POST OP RESPIRATORY FAILURE-HAD TO BE VENTILATED,EXTUBATED NEXT DAY-PER PT SLOW TO WAKE UP IN GENERAL Right breast partial mastectomy 08/29/18 under [facility] with LMA #4 x 3 attempts- atraumatic with good seal- no other issues noted CAD (coronary artery disease) s/p 3 vessel CABG 2006 Osteoarthritis Venous stasis dermatitis LLE Chronic kidney disease STAGE 3-FOLLOWS WITH DR LIND Last seen by nephro 07/20/20- kidney function stable at that time Hyperlipidemia Surgical History Hx of colonoscopy Hx of lymph node excision right axillary History of left knee replacement Status post dilation and curettage 08/26/20 Dr. Cathy Calderon- Hysteroscopy, Dilation and Curettage, Possible Polypectomy S/P laparoscopic colectomy (08/26/20) Laparoscopic Extended Hemicolectomy, Extensive enterolysis - Sohail Quiroga DO History of esophagogastroduodenoscopy (EGD) S/P epidural steroid injection History of partial mastectomy of right breast no chemo, just radiation Status post trigger finger release X2 History of total knee replacement LEFT 2018 History of adverse response to anesthesia SLOW TO WAKE. PT HAD RESP FAILURE S/P KYLAH IN 2008 History of Moh's micrographic surgery for skin cancer S/P tendon repair R ARM History of cholecystectomy History of dilatation and curettage History of bilateral tubal ligation History of cataract surgery BL History of coronary artery bypass graft 3 [place] [place] History of cardiac cath 2006 NO STENTS-[facility] Family History Mother , age 38 heart disease due to rheumatic fever No problems noted. Father , age 73 heart disease No problems noted. Sister No problems noted. Sister No problems noted. Sister No problems noted. Sister No problems noted. Sister No problems noted. Daughter Myocardial infarction Breast cancer Family history of reaction to anesthesia SLOW TO WAKE UP/PONV Daughter Heart disease Other No family history of adverse response to anesthesia Denies family history of Ovarian cancer Prostate cancer Colorectal cancer Social History Smoking Status: Never smoker Second Hand Exposure: No; Do You Dip or Chew Tobacco: No; Hx Alcohol Use: No Hx Substance Use: No Preferred Language: Sammarinese Communication Ability: Effective Visual Impairment: Limited Hearing Ability: Normal [employer] Required: No Beliefs That Will Affect Care: None marital status: / Current Living Situation: Alone current occupational status: retired How many Children do You have: 2 Feels Safe at Home: Yes Childhood Exposure to Second-Hand Smoke: No Diet: low salt and regular caffeine: No during the past year weight has: remained stable Dental Care, Regularly: No Physical Activity Frequency: 3-4 Times per Week Seatbelt Use: always Do you think of yourself as: straight/heterosexual Gender Identity: Female Assistive Devices: Glasses and Walker Review of Systems Review of Systems: As per above Physical Exam Constitutional: WD/WN, vitals as above Eyes: + anicteric sclerae; no conjunctival abn ormality ENMT: Ears: no external ear abnormality Nose: no external nose abnormality Moist mucous membranes Respiratory: normal respiratory effort, lungs clear to auscultation Cardiovascular: Rate/Rhythm: + irregularly irregular +2 pitting edema of bilateral lower extr emities Gastrointestinal (Abdomen): Inspection/Auscultation: abdomen normal to inspection Percussion/Palpation: abdomen soft; abdomen nontender Skin: bilateral lower extremities with mild erythema and crusting. No draining fluid noted. Neurologic: CN's II-XI intact bilaterally and moves all extremities Decreased sensation at fingers of left hand, sensation intact from forearm and above. Left hand fingers decreased strength with abduction and adduction. No other focal deficits noted. Psychiatric: A+Ox3, euthymic affect Results & Data Results & Data Vital Signs (Past 12 Hours) Vital Signs Temp Pulse Pulse Resp BP BP Pulse Ox 06/13/23 20:42 81 06/13/23 20:37 83 24 167/113 H 94 06/13/23 17:19 36.7 C 80 20 226/97 H 99 O2 Del Method 06/13/23 20:42 06/13/23 20:37 Room Air 06/13/23 17:19 Room Air Diagnostic Findings Extremity Venous Study 06/13/23 17:22 Exam(s): US VENOUS LEFT UPPER EXTREMITY EXAM: US Duplex Left Upper Extremity Veins CLINICAL HISTORY: Eval DVT. TECHNIQUE: Real-time duplex ultrasound scan of the left upper extremity veins integrating B-mode two-dimensional vascular structure, Doppler spectral analysis, color flow Doppler imaging and compression. COMPARISON: No relevant prior studies available. FINDINGS: Deep veins: Unremarkable. No DVT in the internal jugular, subclavian, axillary, or brachial veins. The veins demonstrate normal color flow, are normally compressible, with normal phasic flow and/or augmentation response. The radial and ulnar veins are patent. Superficial veins: Short segment occlusion with echogenic material in the left cephalic vein in the proximal forearm. The basilic vein is patent. Soft tissues: No acute findings. IMPRESSION: 1. No evidence for deep vein thrombosis involving the left upper extremity. 2. Short segment occlusion with echogenic material in the left cephalic vein in the proximal forearm. Electronically signed by: Sohail Hills MD 06/13/23 21:20 PM Wrist X-Ray 06/13/23 17:22 XR wrist LT min 3V routine HISTORY: 82 years-old Female Wrist pain acute left wrist pain without reported trauma COMPARISON: None TECHNIQUE: 4 views of the left wrist FINDINGS: Chondrocalcinosis. Arterial calcifications. Mild to moderate osteoarthritis. Subcortical cystic changes of the scaphoid. No acute fracture, dislocation or osseous erosion. Moderate dorsal soft tissue swelling. IMPRESSION: Soft tissue swelling without acute fracture or dislocation. ACT 112: Negative or not required by law. The above report was generated using voice recognition software. It may contain grammatical, syntax or spelling errors. Electronically signed by: Pancho Alvarado M.D. 06/13/2023 6:[address] 06/13/23 20:47 Exam(s): CT HEAD Without Contrast EXAM: CT Head Without Intravenous Contrast CLINICAL HISTORY: paresthesias LUE. TECHNIQUE: Axial computed tomography images of the head/brain without intravenous contrast. CTDI is 38.31 mGy and DLP is 624.41 mGy-cm. Automated exposure control was utilized for the study. A dose lowering technique was utilized adhering to the principles of ALARA. COMPARISON: No relevant prior studies available. FINDINGS: Brain: There are a few areas of decreased attenuation in the deep cerebral white matter consistent with mild small vessel ischemic/degenerative changes. The cerebral and cerebellar sulci are mildly prominent consistent with mild brain atrophy. No hemorrhage. No mass effect. No cortical infarct. Ventricles: Unremarkable. No ventriculomegaly. Bones/joints: Unremarkable. No acute fracture. Soft tissues: Unremarkable. Vasculature: Atherosclerotic disease. Sinuses: Unremarkable as visualized. No acute sinusitis. Mastoid air cells: Unremarkable as visualized. No mastoid effusion. IMPRESSION: No acute intracranial process identified. Chronic appearing underlying presumed age-related findings, as detailed above. Electronically signed by: Sohial Hills MD 06/13/23 21:54 PM Carotid Doppler Study 06/14/23 00:35 Exam(s): US CAROTID EXAM: US Duplex Bilateral Extracranial Arteries CLINICAL HISTORY: stroke like symptoms. TECHNIQUE: Real-time duplex ultrasound scan of the extracranial arteries integrating B-mode two-dimensional vascular structure, Doppler spectral analysis and color flow Doppler imaging. COMPARISON: No relevant prior studies available. FINDINGS: Right common carotid artery: The right common carotid artery demonstrates peak systolic velocities between 68 and 81 cm/s. No occlusion or significant stenosis on color flow and spectral Doppler imaging. Right internal carotid artery: Atherosclerotic plaque noted involving the right carotid bifurcation. The right internal carotid artery demonstrates peak systolic velocities between 98 and 99 cm/s. No occlusion or significant stenosis on color flow and spectral Doppler imaging. Right external carotid artery: Unremarkable. No occlusion or significant stenosis on color flow and spectral Doppler imaging. Right vertebral artery: There is antegrade flow noted in the right vertebral artery with peak systolic velocity of 62 cm/s. Right ICA/CCA ratio: The right ICA/CCA ratio is 1.2. Left common carotid artery: The left common carotid artery demonstrates peak systolic velocities between 115 and 76 cm/s. No occlusion or significant stenosis on color flow and spectral Doppler imaging. Left internal carotid artery: Atherosclerotic plaque noted involving the left carotid bifurcation. The left internal carotid artery demonstrates peak systolic velocities between 111 and 114 cm/s. No occlusion or significant stenosis on color flow and spectral Doppler imaging. Left external carotid artery: Unremarkable. No occlusion or significant stenosis on color flow and spectral Doppler imaging. Left vertebral artery: There is antegrade flow noted involving the left vertebral artery with peak systolic velocity of 40 cm/s. Left ICA/CCA ratio: The left ICA/CCA ratio is 1.5. Lymph nodes: Unremarkable. No lymphadenopathy. CAROTID STENOSIS REFERENCE USING SRU CRITERIA: Mild - <50% stenosis. ICA PSV is less than 125 cm/second and plaque or intimal thickening is visible. Moderate - 50-69% stenosis. ICA PSV is 125 to 230 cm/second and plaque is visible. Severe - 70-94% stenosis. ICA PSV is more than 230 cm/second and visible plaque with lumen narrowing is seen. Near occlusion - 95-99% stenosis. ICA PSV is variable and significant plaque with luminal narrowing is seen. Occluded - 100% stenosis. No flow identified. IMPRESSION: 1. Atherosclerotic disease involving both carotid bifurcations without duplex evidence for significant hemodynamic stenosis. 2. Antegrade flow noted involving the bilateral vertebral arteries. Electronically signed by: Sohail Hills MD 06/14/23 02:20 AM Head MRA 06/14/23 00:35 Exam(s): MRA HEAD Without Contrast EXAM: MR Angiography Head Without Intravenous Contrast CLINICAL HISTORY: stroke like symptoms. TECHNIQUE: Magnetic resonance angiography images of the head without intravenous contrast. COMPARISON: No relevant prior studies available. FINDINGS: Right internal carotid artery: No acute findings. Intracranial segment is patent with no significant stenosis. No aneurysm. Right anterior cerebral artery: Early branching pattern of the proximal right anterior cerebral artery. The anterior cerebral artery is patent. No occlusion or significant stenosis. No aneurysm. Right middle cerebral artery: Unremarkable. No occlusion or significant stenosis. No aneurysm. Right posterior cerebral artery: Unremarkable. No occlusion or significant stenosis. No aneurysm. Right vertebral artery: Unremarkable as visualized. Left internal carotid artery: No acute findings. Intracranial segment is patent with no significant stenosis. No aneurysm. Left anterior cerebral artery: Unremarkable. No occlusion or significant stenosis. No aneurysm. Left middle cerebral artery: Unremarkable. No occlusion or significant stenosis. No aneurysm. Left posterior cerebral artery: Unremarkable. No occlusion or significant stenosis. No aneurysm. Left vertebral artery: Unremarkable as visualized. Basilar artery: Unremarkable. No occlusion or significant stenosis. No aneurysm. IMPRESSION: Negative intracranial MRA examination. Electronically signed by: Sohail Hills MD 06/14/23 02:41 AM Supervising Physician Co-Signing Physician Notes Attending addendum: I have physically seen this patient, have supervised the medical residents activities, and agree with the H&P unless as otherwise noted. Assessment and Plan: TIA like symptoms/left hand numbness- CT head without contrast negative Inability to do CT angiography due to CKD Order MRI brain without contrast, MRA head without contrast, and carotid Dopplers Continue home Eliquis Left upper extremity venous duplex question short segment occlusion with echoge shanthi material in the left cephalic vein. Ask [facility] radiology for over read Stroke without tPA order set CAD/hypertension/atrial fibrillation/CHF- Continue metoprolol, isosorbide, Bumex, and Eliquis CKD stage IV- Creatinine 3.24, and the higher end of his range Follow serial laboratories Diabetes mellitus- Continue insulin as noted Placed on Accu-Cheks with NovoLog SSI Remaining orders and notations as noted Resident Activity Tracking Resident Involvement: Resident Care Provided Care Provided: Adult Hospital Medicine (5) DVT (deep venous thrombosis) Affected thrombotic vein of extremity: femoral Chronicity: chronic DVT location: lower extremity Laterality: right Qualified Code(s): I82.511 - Chronic embolism and thrombosis of right femoral vein
--- NOTE | 2023-06-14 00:03 | Emergency Department Note ---
History of Present Illness General Chief complaint: Hand Injury/Pain Stated complaint: LT HAND/WRIST NUMB Time Seen by Provider: 06/13/23 20:05 Source: patient and family (Daughters at bedside) History of Present Illness Provider complaint: Left upper extremity numbness Onset (ago): day(s) 1 Maximum Pain Intensity: 8 82-year-old female on Eliquis presented to the emergency department for left upper extremity numbness. Patient states she woke up this morning at 6 AM was having difficulty moving her left hand and was feeling numbness in her left hand. She states that as the day went on she was able to move her left upper extremity better but she is still having some numbness and paresthesias in her left upper extremity. She reports no falls or traumas. No difficulty speaking or walking. Home Medications Medication Instructions Recorded Confirmed Type cyanocobalamin (vitamin B-12) 1,000 mcg PO QAM 12/28/17 06/13/23 History 1,000 mcg capsule magnesium oxide 400 mg PO BID 12/28/17 06/13/23 History omega 4-efc-flh-fish oil 1,000 mg 1 cap PO QPM 12/28/17 06/13/23 History (120 mg-180 mg) capsule (Fish Oil) fexofenadine 60 mg tablet (Gabby 60 mg PO DAILY PRN Allergy Symptoms 10/02/18 06/13/23 History Allergy) pen needle, diabetic 31 gauge x #30 ea 11/22/18 06/13/23 History 5/16" (BD Ultra-Fine Short Pen Needle) aspirin 81 mg tablet,delayed 81 mg PO QPM 07/15/20 06/13/23 History release epoetin jase 2,000 unit/mL 2,000 unit subcut .[id number] 12/02/20 06/13/23 History injection solution (Procrit) insulin aspart U-100 100 unit/mL See Rx Instructions subcut TID #60 08/16/21 06/13/23 Rx (3 mL) subcutaneous pen (Novolog mL FlexPen U-100 Insulin aspart) isosorbide mononitrate 30 mg 30 mg PO QAM #90 tabs 12/25/22 06/13/23 Rx tablet,extended release 24 hr isosorbide mononitrate 60 mg 60 mg PO QAM #90 tabs 12/25/22 06/13/23 Rx tablet,extended release 24 hr hydralazine 100 mg tablet 100 mg PO TID #270 tabs 12/28/22 06/13/23 Rx apixaban 2.5 mg tablet (Eliquis) 2.5 mg PO BID #180 tabs 01/29/23 06/13/23 Rx bumetanide 0.5 mg tablet 0.5 mg PO BID #120 tabs 05/15/23 06/13/23 Rx atorvastatin 40 mg tablet 40 mg PO HS #90 tabs 05/23/23 06/13/23 Rx cilostazol 100 mg tablet 100 mg PO BID #180 tabs 06/05/23 06/13/23 Rx ketoconazole 2 % topical cream 1 applic topical BID PRN Other 06/09/23 06/13/23 History mupirocin 2 % topical ointment 1 applic topical BID PRN Other 06/09/23 06/13/23 History nystatin 100,000 unit/gram topical 1 applic topical BID PRN Other 06/09/23 06/13/23 History cream amoxicillin 875 mg-potassium 1 tab PO BID #10 tabs 06/12/23 06/13/23 Rx clavulanate 125 mg tablet diclofenac sodium 1 % topical gel 2 g topical QID PRN arthritic pain 06/12/23 06/13/23 Rx (Voltaren Arthritis Pain) #100 grams alendronate 70 mg tablet (Fosamax) 70 mg PO WK 06/13/23 06/13/23 History calcitriol 0.25 mcg capsule 0.25 mcg PO DAILY 06/13/23 06/13/23 History (Rocaltrol) insulin glargine 100 unit/mL (3 40 unit (0.4 mL) subcut HS #60 mL 06/13/23 06/13/23 Rx mL) subcutaneous pen (Lantus Solostar U-100 Insulin) metoprolol succinate 200 mg 200 mg PO BID #180 tabs 06/13/23 06/13/23 Rx tablet,extended release 24 hr Allergies Allergy/AdvReac Type Severity Reaction Status Date / Time spironolactone AdvReac Severe Hyperkalemi Verified 06/13/23 21:01 a sulfamethoxazole AdvReac Severe SEVERE Verified 06/13/23 21:01 [From Bactrim] VOMITING trimethoprim [From Bactrim] AdvReac Severe SEVERE Verified 06/13/23 21:01 VOMITING JESSICA Inhibitors AdvReac Intermediate ARF Verified 06/13/23 21:01 diclofenac AdvReac Intermediate ankle Verified 06/13/23 21:01 swelling iron AdvReac Intermediate nausea/ Verified 06/13/23 21:01 VOMITING Past Med/Surg History Medical History Right knee DJD History of colon cancer 2020- adenocarcinoma Chronic anticoagulation Small bowel obstruction 2020 > after colon surgery Ileus Encounter for pre-operative examination Anemia Mild- has been evaluated by heme/onc for recent dx colon cancer Hx of breast cancer right breast (Jun 2018). surgical intervention + radiation therapy DVT (deep venous thrombosis) Right upper leg DVT -- March 2020 -- placed on eliquis.-NO ISSUES SINCE Recent u/s from 07/07/20= shows continued evidence of right common femoral DVT. Osteoporosis Lumbar spinal stenosis Edema Peripheral vascular disease Hypertension Hx of acute respiratory failure WITH GB SURG 04/21/09 [facility] POST OP RESPIRATORY FAILURE-HAD TO BE VENTILATED,EXTUBATED NEXT DAY-PER PT SLOW TO WAKE UP IN GENERAL Right breast partial mastectomy 08/29/18 under [place] with LMA #4 x 3 attempts- atraumatic with good seal- no other issues noted CAD (coronary artery disease) s/p 3 vessel CABG 2006 Osteoarthritis Venous stasis dermatitis LLE Chronic kidney disease STAGE 3-FOLLOWS WITH DR LIND Last seen by nephro 07/20/20- kidney function stable at that time Hyperlipidemia Surgical History Hx of colonoscopy Hx of lymph node excision right axillary History of left knee replacement Status post dilation and curettage 08/26/20 Dr. Cathy Calderon- Hysteroscopy, Dilation and Curettage, Possible Polypectomy S/P laparoscopic colectomy (08/26/20) Laparoscopic Extended Hemicolectomy, Extensive enterolysis - Sohail Quiroga DO History of esophagogastroduodenoscopy (EGD) S/P epidural steroid injection History of partial mastectomy of right breast no chemo, just radiation Status post trigger finger release X2 History of total knee replacement LEFT 2018 History of adverse response to anesthesia SLOW TO WAKE. PT HAD RESP FAILURE S/P KYLAH IN 2009 History of Moh's micrographic surgery for skin cancer S/P tendon repair R ARM History of cholecystectomy History of dilatation and curettage History of bilateral tubal ligation History of cataract surgery BL History of coronary artery bypass graft [place] [place] cardiac cath 2006 NO STENTS[place] Family History Mother , age 38 heart disease due to rheumatic fever No problems noted. Father , age 73 heart disease No problems noted. Sister No problems noted. Sister No problems noted. Sister No problems noted. Sister No problems noted. Sister No problems noted. Daughter Myocardial infarction Breast cancer Family history of reaction to anesthesia SLOW TO WAKE UP/PONV Daughter Heart disease Other No family history of adverse response to anesthesia Denies family history of Ovarian cancer Prostate cancer Colorectal cancer Social History Smoking Status: Never smoker Second Hand Exposure: No; Do You Dip or Chew Tobacco: No; Hx Alcohol Use: No Hx Substance Use: No Preferred Language: Albanian Communication Ability: Effective Visual Impairment: Limited Hearing Ability: Normal Stonehand Required: No Beliefs That Will Affect Care: None marital status: / Current Living Situation: Alone current occupational status: retired How many Children do You have: 2 Feels Safe at Home: Yes Childhood Exposure to Second-Hand Smoke: No Diet: low salt and regular caffeine: No during the past year weight has: remained stable Dental Care, Regularly: No Physical Activity Frequency: 3-4 Times per Week Seatbelt Use: always Do you think of yourself as: straight/heterosexual Gender Identity: Female Assistive Devices: Walker Physical Exam Vital Signs Vital Signs - 24 hr 06/13/23 17:19 06/13/23 20:37 06/13/23 20:42 Temperature 36.7 C Temperature Source Temporal Artery Scan Pulse Rate 80 81 Pulse Rate [Apical] 83 Respiratory Rate 20 24 Respiratory Effort / Characteristics Non-Labored Spontaneous Non-Labored Spontaneous Respiratory Depth Normal Normal Respiratory Pattern Regular Blood Pressure 226/97 H Blood Pressure [Left Arm] 167/113 H Blood Pressure Mean 140 Blood Pressure Mean [Left Arm] 131 Blood Pressure Position [Left Arm] Semi-fowlers Pulse Oximetry 99 94 Oxygen Delivery Method Room Air Room Air Sepsis Recent Fever Within 48 Hours No Sepsis New/Unexplained Change in Mental Status No Sepsis Action Taken by Nursing No Action Required Physical Exam GENERAL: She is oriented to person, place, and time. She appears well-developed and well-nourished. She does not appear distressed. HENT: Exam performed. -Head: Normocephalic and atraumatic. CV: Normal rate, regular rhythm, normal heart sounds and intact distal pulses. There is no peripheral edema. Palpable radial pulses bue. PULM/CHEST: Effort normal and breath sounds normal. No respiratory distress. No stridor. She has no wheezes. She has no rales. NEURO: She is alert and oriented to person, place, and time. NIHSS: 1 (8:1) MUSC: Left upper extremity: There is diffuse ecchymosis over the left upper extremity. Mild swelling of the left upper extremity. Decreased sensation over the left upper extremity. Palpable radial and ulnar pulse. Compartments are soft. Right upper extremity: Within normal limits. Diffuse ecchymosis over the right upper extremity. Course Course 2004: The patient was evaluated in room B10. A complete history and physical exam was performed Cardiac monitoring: An order was placed for continuous cardiac monitoring. The monitor shows a rate of 80 with atrial fibrilation rhythm interpreted by me 2225: Vital signs stable. CT of the head within normal limits no ICH. Labs show stable creatinine of 3.24. Patient will be admitted for MRI/MRA given her paresthesias in her upper extremity and weakness that is since resolved to make sure the patient does not have any sort of stroke. Family is in agreement. Patient be admitted to Dr. Wright service. Medical Decision Making Laboratory Data Attestation: I reviewed the patient's lab results. 06/13/23 21:18 06/13/23 21:18 Lab Results 06/13/23 Range/Units 21:18 WBC 4.76 L (4.8-10.8) K/ul RBC 2.77 L (4.20-5.40) M/uL Hgb 8.7 L (12.0-16.0) g/dl Hct 27.7 L (37.0-47.0) % MCV 100.0 (80.0-100.0) fL MCH 31.4 (25.0-34.0) pg MCHC 31.4 L (32.0-36.0) g/dL RDW Std Deviation 59.8 H (36.4-46.3) fL RDW Coeff of Kirsty 16.4 H (11.5-14.5) % Plt Count 127 L (130-400) K/uL MPV 11.5 (9.4-12.4) fL Immature Gran % (Auto) 0.2 % Neut % (Auto) 70.2 % Lymph % (Auto) 10.3 % Miner % (Auto) 16.8 % Eos % (Auto) 2.3 % Baso % (Auto) 0.2 % Neut # (Auto) 3.34 (1.40-6.50) K/uL Lymph # (Auto) 0.49 L (1.20-3.40) K/uL Miner # (Auto) 0.80 H (0.11-0.59) K/uL Eos # (Auto) 0.11 (0.00-0.50) K/uL Baso # (Auto) 0.01 (0.00-0.20) K/uL Immature Gran # (Auto) 0.01 (0.01-0.20) K/uL Platelet Estimate Normal (Normal) PT 10.2 (9.0-12.0) Seconds INR 0.9 (0.9-1.1) APTT 21 (21-31) Seconds PTT Ratio 0.7 Sodium 137 (136-145) mmol/L Potassium 3.9 (3.5-5.1) mmol/L Chloride 103 (98-107) mmol/L Carbon Dioxide 25 (21-32) mmol/L Anion Gap 9 (3-11) BUN 44 H (6-23) mg/dl Creatinine 3.24 H (0.6-1.2) mg/dl Est Cr Clr Drug Dosing 15.5 ml/min Est GFR ( Amer) 14.8 ml/min Est GFR (Non-Af Amer) 12.7 ml/min BUN/Creatinine Ratio 13.6 (10-20) Glucose 142 H (70-99(Fasting)) mg/dl Calcium 8.2 L (8.6-10.3) mg/dl Imaging Data Radiologist's Impression: Extremity Venous Study 06/13/23 17:22 Exam(s): US VENOUS LEFT UPPER EXTREMITY EXAM: US Duplex Left Upper Extremity Veins CLINICAL HISTORY: Eval DVT. TECHNIQUE: Real-time duplex ultrasound scan of the left upper extremity veins integrating B-mode two-dimensional vascular structure, Doppler spectral analysis, color flow Doppler imaging and compression. COMPARISON: No relevant prior studies available. FINDINGS: Deep veins: Unremarkable. No DVT in the internal jugular, subclavian, axillary, or brachial veins. The veins demonstrate normal color flow, are normally compressible, with normal phasic flow and/or augmentation response. The radial and ulnar veins are patent. Superficial veins: Short segment occlusion with echogenic material in the left cephalic vein in the proximal forearm. The basilic vein is patent. Soft tissues: No acute findings. IMPRESSION: 1. No evidence for deep vein thrombosis involving the left upper extremity. 2. Short segment occlusion with echogenic material in the left cephalic vein in the proximal forearm. Electronically signed by: Sohail Hills MD 06/13/23 21:20 PM Wrist X-Ray 06/13/23 17:22 XR wrist LT min 3V routine HISTORY: 82 years-old Female Wrist pain acute left wrist pain without reported trauma COMPARISON: None TECHNIQUE: 4 views of the left wrist FINDINGS: Chondrocalcinosis. Arterial calcifications. Mild to moderate osteoarthritis. Subcortical cystic changes of the scaphoid. No acute fracture, dislocation or osseous erosion. Moderate dorsal soft tissue swelling. IMPRESSION: Soft tissue swelling without acute fracture or dislocation. ACT 112: Negative or not required by law. The above report was generated using voice recognition software. It may contain grammatical, syntax or spelling errors. Electronically signed by: Pancho Alvarado M.D. 06/13/2023 6:[address] 06/13/23 20:47 Exam(s): CT HEAD Without Contrast EXAM: CT Head Without Intravenous Contrast CLINICAL HISTORY: paresthesias LUE. TECHNIQUE: Axial computed tomography images of the head/brain without intravenous contrast. CTDI is 38.31 mGy and DLP is 624.41 mGy-cm. Automated exposure control was utilized for the study. A dose lowering technique was utilized adhering to the principles of ALARA. COMPARISON: No relevant prior studies available. FINDINGS: Brain: There are a few areas of decreased attenuation in the deep cerebral white matter consistent with mild small vessel ischemic/degenerative changes. The cerebral and cerebellar sulci are mildly prominent consistent with mild brain atrophy. No hemorrhage. No mass effect. No cortical infarct. Ventricles: Unremarkable. No ventriculomegaly. Bones/joints: Unremarkable. No acute fracture. Soft tissues: Unremarkable. Vasculature: Atherosclerotic disease. Sinuses: Unremarkable as visualized. No acute sinusitis. Mastoid air cells: Unremarkable as visualized. No mastoid effusion. IMPRESSION: No acute intracranial process identified. Chronic appearing underlying presumed age-related findings, as detailed above. Electronically signed by: Sohail Hills MD 06/13/23 21:54 PM [facility] Narrative 2004: The patient was evaluated in room B10. A complete history and physical exam was performed Cardiac monitoring: An order was placed for continuous cardiac monitoring. The monitor shows a rate of 80 with atrial fibrilation rhythm interpreted by sd 2225: Vital signs stable. CT of the head within normal limits no ICH. Labs show stable creatinine of 3.24. Patient will be admitted for MRI/MRA given her paresthesias in her upper extremity and weakness that is since resolved to make sure the patient does not have any sort of stroke. Family is in agreement. Patient be admitted to Dr. Wright service. Impression & Plan Brain TIA, Paresthesia Discharge Plan Visit Data Chief Complaint: Hand Injury/Pain Stated Complaint: LT HAND/WRIST NUMB ED Provider: Freedom Muñoz Discharge Problem: Brain TIA, Paresthesia Patient Disposition: Being Evaluated by Hospitalist Discharge Instructions Interventions: ED Discharge Assessment Last Done: 06/13/23 23:57
[2023-06-14] MEDS ORDERED: DEXTROSE 50% 50 ML SYRINGE IV PRN (00:32)
[2023-06-14] MEDS ORDERED: GLUCOSE 10 TAB/TUBE PO PRN (00:32)
[2023-06-14] MEDS ORDERED: CARBOHYDRATES FOR HYPOGLYCEMIA PO PRN (00:32)
[2023-06-14] MEDS ORDERED: GLUCAGON FOR INJ 1 MG VIAL SQ PRN (00:32)
[2023-06-14] MEDS ORDERED: GLUCOSE 40% GEL 15 GM TUBE PO PRN (00:32)
--- NOTE | 2023-06-14 02:21 | Ultrasound Report ---
Exam(s): US CAROTID EXAM: US Duplex Bilateral Extracranial Arteries CLINICAL HISTORY: stroke like symptoms. TECHNIQUE: Real-time duplex ultrasound scan of the extracranial arteries integrating B-mode two-dimensional vascular structure, Doppler spectral analysis and color flow Doppler imaging. COMPARISON: No relevant prior studies available. FINDINGS: Right common carotid artery: The right common carotid artery demonstrates peak systolic velocities between 68 and 81 cm/s. No occlusion or significant stenosis on color flow and spectral Doppler imaging. Right internal carotid artery: Atherosclerotic plaque noted involving the right carotid bifurcation. The right internal carotid artery demonstrates peak systolic velocities between 98 and 99 cm/s. No occlusion or significant stenosis on color flow and spectral Doppler imaging. Right external carotid artery: Unremarkable. No occlusion or significant stenosis on color flow and spectral Doppler imaging. Right vertebral artery: There is antegrade flow noted in the right vertebral artery with peak systolic velocity of 62 cm/s. Right ICA/CCA ratio: The right ICA/CCA ratio is 1.2. Left common carotid artery: The left common carotid artery demonstrates peak systolic velocities between 115 and 76 cm/s. No occlusion or significant stenosis on color flow and spectral Doppler imaging. Left internal carotid artery: Atherosclerotic plaque noted involving the left carotid bifurcation. The left internal carotid artery demonstrates peak systolic velocities between 111 and 114 cm/s. No occlusion or significant stenosis on color flow and spectral Doppler imaging. Left external carotid artery: Unremarkable. No occlusion or significant stenosis on color flow and spectral Doppler imaging. Left vertebral artery: There is antegrade flow noted involving the left vertebral artery with peak systolic velocity of 40 cm/s. Left ICA/CCA ratio: The left ICA/CCA ratio is 1.5. Lymph nodes: Unremarkable. No lymphadenopathy. CAROTID STENOSIS REFERENCE USING SRU CRITERIA: Mild - <50% stenosis. ICA PSV is less than 125 cm/second and plaque or intimal thickening is visible. Moderate - 50-69% stenosis. ICA PSV is 125 to 230 cm/second and plaque is visible. Severe - 70-94% stenosis. ICA PSV is more than 230 cm/second and visible plaque with lumen narrowing is seen. Near occlusion - 95-99% stenosis. ICA PSV is variable and significant plaque with luminal narrowing is seen. Occluded - 100% stenosis. No flow identified. IMPRESSION: 1. Atherosclerotic disease involving both carotid bifurcations without duplex evidence for significant hemodynamic stenosis. 2. Antegrade flow noted involving the bilateral vertebral arteries. Electronically signed by: Sohail Hills MD 06/14/23 02:20 AM
[2023-06-14] MEDS: ATORVASTATIN 40 MG TAB PO STA (02:26)
[2023-06-14] MEDS: cilostazoL 100 MG TAB PO STA (02:27)
[2023-06-14] MEDS: ASPIRIN 81 MG ECTAB PO STA (02:27)
[2023-06-14] MEDS: hydrALAZINE TAB 50 MG TAB PO STA (02:28)
[2023-06-14] MEDS: BUMETANIDE 1 MG TAB PO STA (02:29)
[2023-06-14] MEDS: APIXABAN 2.5 MG TAB PO STA (02:29)
[2023-06-14] MEDS: AMOXICILLIN/CLAVULANATE 875 MG TAB PO STA (02:30)
[2023-06-14] MEDS: METOPROLOL SUCC 50MG EXT REL TAB PO STA (02:31)
--- NOTE | 2023-06-14 02:42 | Magnetic Resonance Report ---
Exam(s): MRA HEAD Without Contrast EXAM: MR Angiography Head Without Intravenous Contrast CLINICAL HISTORY: stroke like symptoms. TECHNIQUE: Magnetic resonance angiography images of the head without intravenous contrast. COMPARISON: No relevant prior studies available. FINDINGS: Right internal carotid artery: No acute findings. Intracranial segment is patent with no significant stenosis. No aneurysm. Right anterior cerebral artery: Early branching pattern of the proximal right anterior cerebral artery. The anterior cerebral artery is patent. No occlusion or significant stenosis. No aneurysm. Right middle cerebral artery: Unremarkable. No occlusion or significant stenosis. No aneurysm. Right posterior cerebral artery: Unremarkable. No occlusion or significant stenosis. No aneurysm. Right vertebral artery: Unremarkable as visualized. Left internal carotid artery: No acute findings. Intracranial segment is patent with no significant stenosis. No aneurysm. Left anterior cerebral artery: Unremarkable. No occlusion or significant stenosis. No aneurysm. Left middle cerebral artery: Unremarkable. No occlusion or significant stenosis. No aneurysm. Left posterior cerebral artery: Unremarkable. No occlusion or significant stenosis. No aneurysm. Left vertebral artery: Unremarkable as visualized. Basilar artery: Unremarkable. No occlusion or significant stenosis. No aneurysm. IMPRESSION: Negative intracranial MRA examination. Electronically signed by: Sohail Hills MD 06/14/23 02:41 AM
[2023-06-14 04:08] LABS: Albumin Globulin Ratio 1.1 (0.9-2); Albumin Level 3.3 gm/dl (3.4-5.0); BUN Creatinine Ratio 14.1 (10-20); Bilirubin,Total 1.1 mg/dl (0.2-1.0); Calcium 8.2 mg/dl (8.6-10.3); Creatinine Clr Calc Pharmacy 15.7 ml/min; Est GFR (African American) 15.1 ml/min; Potassium 3.8 mmol/L (3.5-5.1); Total Protein 6.3 gm/dl (6.0-8.3)
[2023-06-14 04:12] LABS: Basophils # (auto) 0.02 K/uL (0.00-0.20); Basophils % (auto) 0.4 %; Eosinophils # (auto) 0.11 K/uL (0.00-0.50); Eosinophils % (auto) 2.2 %; Hematocrit (blood only) 27.3 % (37.0-47.0); Hemoglobin 8.7 g/dl (12.0-16.0); Immature Granulocytes # (auto) 0.02 K/uL (0.01-0.20); Immature Granulocytes % (auto) 0.4 %; Lymphocytes # (auto) 0.57 K/uL (1.20-3.40); Lymphocytes % (auto) 11.4 %; Mean Corpuscular Hemoglobin 31.5 pg (25.0-34.0); Mean Corpuscular Hgb Conc 31.9 g/dL (32.0-36.0); Mean Corpuscular Volume 98.9 fL (80.0-100.0); Mean Platelet Volume 10.5 fL (9.4-12.4); Monocytes # (auto) 0.76 K/uL (0.11-0.59); Monocytes % (auto) 15.3 %; Neutrophils % (auto) 70.3 %; Platelet Count 196 K/uL (130-400); RDW Coefficient of Variation 16.2 % (11.5-14.5); RDW Standard Deviation 58.1 fL (36.4-46.3); Red Blood Count 2.76 M/uL (4.20-5.40); White Blood Count 4.98 K/ul (4.8-10.8)
[2023-06-14] MEDS: ACETAMINOPHEN 500 MG TAB PO PRN (06:05)
[2023-06-14] MEDS: INSULIN ASPART PER UNIT CHARGE SC SCH (10:05)
[2023-06-14] MEDS: LANTUS PER UNIT CHARGE SQ SCH (10:53)
[2023-06-14] MEDS: AMOXICILLIN/CLAVULANATE 500 MG TAB PO SCH (11:35)
[2023-06-14] MEDS: CALCITRIOL 0.25 MCG CAPSULE PO SCH (11:35)
[2023-06-14] MEDS: APIXABAN 2.5 MG TAB PO SCH (11:35)
[2023-06-14] MEDS: cilostazoL 100 MG TAB PO SCH (11:36)
[2023-06-14] MEDS: hydrALAZINE TAB 50 MG TAB PO SCH (11:37)
[2023-06-14] MEDS: ISOSORBIDE MONO EXTENDED REL 30 MG TABCR PO SCH (11:37)
[2023-06-14] MEDS: MAGNESIUM OXIDE 400 MG TAB PO SCH (11:38)
[2023-06-14] MEDS: ISOSORBIDE MONO EXTENDED REL 60 MG TABCR PO SCH (11:38)
[2023-06-14] MEDS: METOPROLOL SUCC 50MG EXT REL TAB PO SCH (11:40)
[2023-06-14] MEDS: BUMETANIDE 1 MG TAB PO SCH (11:40)
[2023-06-14] MEDS: predniSONE 20 MG TAB PO STA (12:36)
--- NOTE | 2023-06-14 13:55 | Magnetic Resonance Report ---
MR brain wo con HISTORY: 82 years-old Female LUE nunmbness/weakness, stroke eval Acute weakness with stroke-like sym ptoms. COMPARISON: Head CT 06/13/2023. TECHNIQUE: Multiplanar and multisequence MRI of the brain was obtained without the use of IV contrast . FINDINGS: No restricted diffusion. Midline structures are unremarkable. Partially empty sella. Degenerative chalo nges of the cervical spine. No acute intracranial hemorrhage, midline shift, abnormal extra-axial col lection, hydrocephalus or intra-axial mass. Involutional changes. [id number] T2/FLAIR hype rintense foci throughout the white matter. Cerebral venous sinuses and major arterial flow voids appear patent. The skull, orbits and soft tissu es are unremarkable. Prior bilateral lens repair. IMPRESSION: 1. Motion degraded exam without acute intracranial abnormality. 2. No acute or subacute infarct. 3. Involutional changes with chronic microvascular ischemic disease. ACT 112: Negative or not required by law. The above report was generated using voice recognition software. It may contain grammatical, syntax o r spelling errors. Dictated: 06/14/2023 1:17 PM Transcribed: 06/14/2023 1:45 PM [facility] [id number] [email or web address] Electronically signed by: Pancho Alvarado M.D. 06/14/2023 1:54 PM
--- NOTE | 2023-06-14 15:17 | Hospitalist Progress Note ---
Date of Service June 14, 2023 Assessment & Plan (1) Left wrist pain: Plan: Presented with L hand/wrist pain and paresthesia of hand. No head or neck pain or shoulder pain. MRA head was normal, no significant carotid disease on duplex Added MRI brain for completeness - reviewed and negative for stroke LUE venous duplex negative for DVT Evaluation for stroke/TIA is negative and symptoms persist. Exam and history is consistent with an extremity problem rather than a [employer] problem. -given the acute pain and tenderness it may be crystalline arthritis - CPPD or gout. Peripheral nerve compression is also a possibility though not in a clearcut PNS distribution. Paresthesias in hand could occur if soft tissue swelling present in the wrist. 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, soft tissue swelling is also commented on -add uric acid level -trial prednisone 40 mg x 1 then 20 mg tomorrow, assess response -poor candidate for nsaids or colchicine given her renal function (2) Paresthesia: Plan: L hand, see above (3) (HFpEF) heart failure with preserved ejection fraction: Plan: Euvolemic -Continue Bumex, metoprolol -Echo completed at last admission, shows preserved EF and Diastolic dysfunction II, some elevated pulmonary pressures -Follow with [facility] as outpatient (4) Cellulitis of right lower extremity: Plan: Improving slowly since discharge, continue oral Augmentin (5) New onset a-fib: Plan: Diagnosed last admission -on DOAC and b-bijal - continue (6) DVT (deep venous thrombosis): Plan: HX of, on DOAC (7) PVD (peripheral vascular disease): (8) Type 2 diabetes mellitus with neurologic complication, with long-term current use of insulin: Plan: -Continue basal/bolus insulin -Goal BSG [id number] -Continue correction factor 50/carb ratio 10 (9) CAD (coronary artery disease): Plan Chronic/stable issues: CAD (coronary artery disease) -Continue Isosorbide and metoprolol CKD (chronic kidney disease), stage IV -Cr 3.24 bumped slightly since discharge (3.02 on day of discharge) -Renally dose medications, avoid nephrotoxins -AM BMP Hypertension -JESSICA/ARB deferred due to renal dysfunction, spironolactone previously discontinued due to hyperkalemia -Metoprolol, hydralazine, Imdur, Bumex continued Chronic anemia -With prior iron studies showing iron saturation 47%, anemia consistent with chronic disease/renally mediated. Receives Procrit as an outpatient -Hemoglobin 8.7 on admission, monitor daily CBC while admitted Chronic, Stable Issues: History of right breast invasive ductal carcinoma: Discontinued tamoxifen in 2022. Continue outpt f/u Adenocarcinoma of ascending colon: S/p hemicolectomy 08/2020. No lymphatic spread. Continue outpatient follow-up Code Status: Full Code Diet: Heart healthy, carb consistent VTE Prophylaxis: Eliquis Admission and Anticipated Discharge Date Admission Date: June 13, 2023 Subjective L wrist especially and also L hand very painful. Has pins and needles feeling of fingertips / hand numbness. At first felt L arm was painful (below the elbow) yesterday. No neck/shoulder pain. Awoke like this yesterday but wrist had started to hurt by time of hospital discharge - seemed like arthritis pain. Never had similar. R ankle erythema improving slowly. Leg swelling much improved compared to prior admission. No shortness of breath or chest pain. No other neurological symptoms. Physical Exam 2 Physical Exam: PHYSICAL EXAMINATION Last 24h vital signs reviewed, see documentation in flowsheet General: comfortable appearing, no distress HEENT: Normocephalic, atraumatic, pupils round and equal, sclerae anicteric, no conjunctival injection, moist mucus membranes Lungs: Normal respiratory effort. Clear to auscultation bilaterally. No RRW Heart: Regular rate and rhythm, no murmurs. No JVD Abdomen: Soft, nontender, nondistended. Bowel sounds present. Extremities: Warm, dry, well-perfused. No extremity edema. Left wrist is mildly full appearing and mildly warm, tender to palpation and with range of motion out of proportion to exam, no inflammation of MCPs or DIPs, hand is mildly tender to palpation Right hand and wrist and both feet appear normal and nontender Neuro: Alert and oriented x 4, face symmetric, moves 4 extremities well Psych: Normal affect and behavior Results & Data Results & Data Vital Signs (Past 12 Hours) Vital Signs Pulse Pulse Ox O2 Del Method 06/14/23 11:08 96 Room Air 06/14/23 07:16 85 Laboratory Results 06/14/23 03:33 06/14/23 03:33 Diagnostic Findings Extremity Venous Study 06/13/23 17:22 Exam(s): US VENOUS LEFT UPPER EXTREMITY EXAM: US Duplex Left Upper Extremity Veins CLINICAL HISTORY: Eval DVT. TECHNIQUE: Real-time duplex ultrasound scan of the left upper extremity veins integrating B-mode two-dimensional vascular structure, Doppler spectral analysis, color flow Doppler imaging and compression. COMPARISON: No relevant prior studies available. FINDINGS: Deep veins: Unremarkable. No DVT in the internal jugular, subclavian, axillary, or brachial veins. The veins demonstrate normal color flow, are normally compressible, with normal phasic flow and/or augmentation response. The radial and ulnar veins are patent. Superficial veins: Short segment occlusion with echogenic material in the left cephalic vein in the proximal forearm. The basilic vein is patent. Soft tissues: No acute findings. IMPRESSION: 1. No evidence for deep vein thrombosis involving the left upper extremity. 2. Short segment occlusion with echogenic material in the left cephalic vein in the proximal forearm. Electronically signed by: Sohail Hills MD 06/13/23 21:20 PM Wrist X-Ray 06/13/23 17:22 XR wrist LT min 3V routine HISTORY: 82 years-old Female Wrist pain acute left wrist pain without reported trauma COMPARISON: None TECHNIQUE: 4 views of the left wrist FINDINGS: Chondrocalcinosis. Arterial calcifications. Mild to moderate osteoarthritis. Subcortical cystic changes of the scaphoid. No acute fracture, dislocation or osseous erosion. Moderate dorsal soft tissue swelling. IMPRESSION: Soft tissue swelling without acute fracture or dislocation. ACT 112: Negative or not required by law. The above report was generated using voice recognition software. It may contain grammatical, syntax or spelling errors. Electronically signed by: Pancho Alvarado M.D. 06/13/2023 6:[address] 06/13/23 20:47 Exam(s): CT HEAD Without Contrast EXAM: CT Head Without Intravenous Contrast CLINICAL HISTORY: paresthesias LUE. TECHNIQUE: Axial computed tomography images of the head/brain without intravenous contrast. CTDI is 38.31 mGy and DLP is 624.41 mGy-cm. Automated exposure control was utilized for the study. A dose lowering technique was utilized adhering to the principles of ALARA. COMPARISON: No relevant prior studies available. FINDINGS: Brain: There are a few areas of decreased attenuation in the deep cerebral white matter consistent with mild small vessel ischemic/degenerative changes. The cerebral and cerebellar sulci are mildly prominent consistent with mild brain atrophy. No hemorrhage. No mass effect. No cortical infarct. Ventricles: Unremarkable. No ventriculomegaly. Bones/joints: Unremarkable. No acute fracture. Soft tissues: Unremarkable. Vasculature: Atherosclerotic disease. Sinuses: Unremarkable as visualized. No acute sinusitis. Mastoid air cells: Unremarkable as visualized. No mastoid effusion. IMPRESSION: No acute intracranial process identified. Chronic appearing underlying presumed age-related findings, as detailed above. Electronically signed by: Sohail Hills MD 06/13/23 21:54 PM Carotid Doppler Study 06/14/23 00:35 Exam(s): US CAROTID EXAM: US Duplex Bilateral Extracranial Arteries CLINICAL HISTORY: stroke like symptoms. TECHNIQUE: Real-time duplex ultrasound scan of the extracranial arteries integrating B-mode two-dimensional vascular structure, Doppler spectral analysis and color flow Doppler imaging. COMPARISON: No relevant prior studies available. FINDINGS: Right common carotid artery: The right common carotid artery demonstrates peak systolic velocities between 68 and 81 cm/s. No occlusion or significant stenosis on color flow and spectral Doppler imaging. Right internal carotid artery: Atherosclerotic plaque noted involving the right carotid bifurcation. The right internal carotid artery demonstrates peak systolic velocities between 98 and 99 cm/s. No occlusion or significant stenosis on color flow and spectral Doppler imaging. Right external carotid artery: Unremarkable. No occlusion or significant stenosis on color flow and spectral Doppler imaging. Right vertebral artery: There is antegrade flow noted in the right vertebral artery with peak systolic velocity of 62 cm/s. Right ICA/CCA ratio: The right ICA/CCA ratio is 1.2. Left common carotid artery: The left common carotid artery demonstrates peak systolic velocities between 115 and 76 cm/s. No occlusion or significant stenosis on color flow and spectral Doppler imaging. Left internal carotid artery: Atherosclerotic plaque noted involving the left carotid bifurcation. The left internal carotid artery demonstrates peak systolic velocities between 111 and 114 cm/s. No occlusion or significant stenosis on color flow and spectral Doppler imaging. Left external carotid artery: Unremarkable. No occlusion or significant stenosis on color flow and spectral Doppler imaging. Left vertebral artery: There is antegrade flow noted involving the left vertebral artery with peak systolic velocity of 40 cm/s. Left ICA/CCA ratio: The left ICA/CCA ratio is 1.5. Lymph nodes: Unremarkable. No lymphadenopathy. CAROTID STENOSIS REFERENCE USING SRU CRITERIA: Mild - <50% stenosis. ICA PSV is less than 125 cm/second and plaque or intimal thickening is visible. Moderate - 50-69% stenosis. ICA PSV is 125 to 230 cm/second and plaque is visible. Severe - 70-94% stenosis. ICA PSV is more than 230 cm/second and visible plaque with lumen narrowing is seen. Near occlusion - 95-99% stenosis. ICA PSV is variable and significant plaque with luminal narrowing is seen. Occluded - 100% stenosis. No flow identified. IMPRESSION: 1. Atherosclerotic disease involving both carotid bifurcations without duplex evidence for significant hemodynamic stenosis. 2. Antegrade flow noted involving the bilateral vertebral arteries. Electronically signed by: Sohail Hills MD 06/14/23 02:20 AM Head MRA 06/14/23 00:35 Exam(s): MRA HEAD Without Contrast EXAM: MR Angiography Head Without Intravenous Contrast CLINICAL HISTORY: stroke like symptoms. TECHNIQUE: Magnetic resonance angiography images of the head without intravenous contrast. COMPARISON: No relevant prior studies available. FINDINGS: Right internal carotid artery: No acute findings. Intracranial segment is patent with no significant stenosis. No aneurysm. Right anterior cerebral artery: Early branching pattern of the proximal right anterior cerebral artery. The anterior cerebral artery is patent. No occlusion or significant stenosis. No aneurysm. Right middle cerebral artery: Unremarkable. No occlusion or significant stenosis. No aneurysm. Right posterior cerebral artery: Unremarkable. No occlusion or significant stenosis. No aneurysm. Right vertebral artery: Unremarkable as visualized. Left internal carotid artery: No acute findings. Intracranial segment is patent with no significant stenosis. No aneurysm. Left anterior cerebral artery: Unremarkable. No occlusion or significant stenosis. No aneurysm. Left middle cerebral artery: Unremarkable. No occlusion or significant stenosis. No aneurysm. Left posterior cerebral artery: Unremarkable. No occlusion or significant stenosis. No aneurysm. Left vertebral artery: Unremarkable as visualized. Basilar artery: Unremarkable. No occlusion or significant stenosis. No aneurysm. IMPRESSION: Negative intracranial MRA examination. Electronically signed by: Sohail Hills MD 06/14/23 02:41 AM Brain MRI 06/14/23 08:43 MR brain wo con HISTORY: 82 years-old Female LUE nunmbness/weakness, stroke eval Acute weakness with stroke-like symptoms. COMPARISON: Head CT 06/13/2023. TECHNIQUE: Multiplanar and multisequence MRI of the brain was obtained without the use of IV contrast. FINDINGS: No restricted diffusion. Midline structures are unremarkable. Partially empty sella. Degenerative changes of the cervical spine. No acute intracranial hemorrhage, midline shift, abnormal extra-axial collection, hydrocephalus or intra-axial mass. Involutional changes. [id number] T2/FLAIR hyperintense foci throughout the white matter. Cerebral venous sinuses and major arterial flow voids appear patent. The skull, orbits and soft tissues are unremarkable. Prior bilateral lens repair. IMPRESSION: 1. Motion degraded exam without acute intracranial abnormality. 2. No acute or subacute infarct. 3. Involutional changes with chronic microvascular ischemic disease. ACT 112: Negative or not required by law. The above report was generated using voice recognition software. It may contain grammatical, syntax or spelling errors. Dictated: 06/14/2023 1:17 PM Transcribed: 06/14/2023 1:45 PM Kana [id number] [email or web address] Electronically signed by: Pancho Alvarado M.D. 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 transplanted heart: [place] heart Associated angina: without angina (6) DVT (deep venous thrombosis) DVT location: lower extremity Affected thrombotic vein of extremity: femoral Chronicity: chronic Laterality: right Qualified Code(s): I82.511 - Chronic embolism and thrombosis of right femoral vein (9) CAD (coronary artery disease) Coronary Disease-Associated Artery/Lesion type: [place] artery [place] vs. transplanted heart: [place] heart Associated angina: without angina Qualified Code(s): I25.10 - Atherosclerotic heart disease of [place] coronary artery without angina pectoris
[2023-06-14] MEDS: ATORVASTATIN 40 MG TAB PO SCH (21:01)
[2023-06-14] MEDS: ASPIRIN 81 MG ECTAB PO SCH (21:01)
--- NOTE | 2023-06-14 21:31 | Billing Data ---
Date of Service June 14, 2023 Coding Level of Care Code 02946 INT INP/OBS CARE
[2023-06-15 05:56] LABS: BUN Creatinine Ratio 16.5 (10-20); Calcium 7.8 mg/dl (8.6-10.3); Creatinine Clr Calc Pharmacy 15.9 ml/min; Est GFR (African American) 15.3 ml/min; Est GFR (Non-African American) 13.2 ml/min; Potassium 3.7 mmol/L (3.5-5.1)
[2023-06-15 07:56] VITALS: RESP 18
[2023-06-15] MEDS: predniSONE 20 MG TAB PO SCH (09:01)
[2023-06-15 11:36] VITALS: BP 150/67; TEMP 97.7; O2SAT 94
[2023-06-15 15:23] VITALS: PULSE 83
--- NOTE | 2023-06-15 17:39 | Discharge Summary ---
Date of Service June 15, 2023 Admission HPI Per Admitting Provider Patricia Unger is a 82 year-old female with a past medical history of CABG, CKD, hyperlipidemia, hypercalcemia, type 2 diabetes mellitus, PVD, DVT on Eliquis who presented to the ED with concern of left hand numbness/tingling and weakness. She was recently discharged from [facility] on 06/12 for CHF exacerbation and LE cellulitis. She notes that she awoke on the morning of 06/13 with her hand feeling numb and weak, states it felt like "pins and needles" and it was difficult to wash her hair, etc. with that hand. She denies any weakness or focal symptoms in any other extremity and has not had slurred speech. She notes that she did have some pain in her left hand overnight on her recent admission, but felt it was from her osteoarthritis. She states that since the symptoms started this morning, they have stayed "about the same." She denies any chest pain or shortness of breath, states that otherwise she has been feeling well since her recent discharge. ED Course: -XR Hand -UE Venous Doppler -CBC, CMP Principal Diagnosis Left upper extremity pain and numbness, peripheral nerve compression, left wrist pseudogout Discharge Exam PHYSICAL EXAMINATION Last 24h vital signs reviewed, see documentation in flowsheet General: comfortable appearing, no distress, sitting in chair HEENT: Normocephalic, atraumatic, pupils round and equal, sclerae anicteric, no conjunctival injection, moist mucus membranes Lungs: Normal respiratory effort. Clear to auscultation bilaterally. No RRW Heart: Regular rate and rhythm, no murmurs. No JVD Abdomen: Soft, nontender, nondistended. Bowel sounds present. Extremities: Warm, dry, well-perfused. No extremity edema. Left wrist is improved, tolerates palpation and ROM without pain, no inflammation of MCPs or DIPs, hand is no longer tender to palpation Neuro: Alert and oriented x 4, face symmetric, moves 4 extremities well Psych: Normal affect and behavior Discharge Data Allergies Allergy/AdvReac Type Severity Reaction Status Date / Time spironolactone AdvReac Severe Hyperkalemi Verified 06/13/23 21:01 a sulfamethoxazole AdvReac Severe SEVERE Verified 06/13/23 21:01 [From Bactrim] VOMITING trimethoprim [From Bactrim] AdvReac Severe SEVERE Verified 06/13/23 21:01 VOMITING JESSICA Inhibitors AdvReac Intermediate ARF Verified 06/13/23 21:01 diclofenac AdvReac Intermediate ankle Verified 06/13/23 21:01 swelling iron AdvReac Intermediate nausea/ Verified 06/13/23 21:01 VOMITING Consultations 06/13/23 22:23 ED Decision to Admit Stat Ordered Studies 06/13/23 17:22 US venous doppler UE LT Stat 06/13/23 20:47 CT head/brain wo con Stat 06/14/23 00:35 Carotid duplex [US carotid doppler BI] Urgent MR angio head wo con Urgent 06/14/23 08:43 MR brain wo con Urgent Extremity Venous Study 06/13/23 17:22 Exam(s): US VENOUS LEFT UPPER EXTREMITY EXAM: US Duplex Left Upper Extremity Veins CLINICAL HISTORY: Eval DVT. TECHNIQUE: Real-time duplex ultrasound scan of the left upper extremity veins integrating B-mode two-dimensional vascular structure, Doppler spectral analysis, color flow Doppler imaging and compression. COMPARISON: No relevant prior studies available. FINDINGS: Deep veins: Unremarkable. No DVT in the internal jugular, subclavian, axillary, or brachial veins. The veins demonstrate normal color flow, are normally compressible, with normal phasic flow and/or augmentation response. The radial and ulnar veins are patent. Superficial veins: Short segment occlusion with echogenic material in the left cephalic vein in the proximal forearm. The basilic vein is patent. Soft tissues: No acute findings. IMPRESSION: 1. No evidence for deep vein thrombosis involving the left upper extremity. 2. Short segment occlusion with echogenic material in the left cephalic vein in the proximal forearm. Electronically signed by: Sohail Hills MD 06/13/23 21:20 PM Wrist X-Ray 06/13/23 17:22 XR wrist LT min 3V routine HISTORY: 82 years-old Female Wrist pain acute left wrist pain without reported trauma COMPARISON: None TECHNIQUE: 4 views of the left wrist FINDINGS: Chondrocalcinosis. Arterial calcifications. Mild to moderate osteoarthritis. Subcortical cystic changes of the scaphoid. No acute fracture, dislocation or osseous erosion. Moderate dorsal soft tissue swelling. IMPRESSION: Soft tissue swelling without acute fracture or dislocation. ACT 112: Negative or not required by law. The above report was generated using voice recognition software. It may contain grammatical, syntax or spelling errors. Electronically signed by: Pancho Alvarado M.D. 06/13/2023 6:[address] 06/13/23 20:47 Exam(s): CT HEAD Without Contrast EXAM: CT Head Without Intravenous Contrast CLINICAL HISTORY: paresthesias LUE. TECHNIQUE: Axial computed tomography images of the head/brain without intravenous contrast. CTDI is 38.31 mGy and DLP is 624.41 mGy-cm. Automated exposure control was utilized for the study. A dose lowering technique was utilized adhering to the principles of ALARA. COMPARISON: No relevant prior studies available. FINDINGS: Brain: There are a few areas of decreased attenuation in the deep cerebral white matter consistent with mild small vessel ischemic/degenerative changes. The cerebral and cerebellar sulci are mildly prominent consistent with mild brain atrophy. No hemorrhage. No mass effect. No cortical infarct. Ventricles: Unremarkable. No ventriculomegaly. Bones/joints: Unremarkable. No acute fracture. Soft tissues: Unremarkable. Vasculature: Atherosclerotic disease. Sinuses: Unremarkable as visualized. No acute sinusitis. Mastoid air cells: Unremarkable as visualized. No mastoid effusion. IMPRESSION: No acute intracranial process identified. Chronic appearing underlying presumed age-related findings, as detailed above. Electronically signed by: Sohail Hills MD 06/13/23 21:54 PM Carotid Doppler Study 06/14/23 00:35 Exam(s): US CAROTID EXAM: US Duplex Bilateral Extracranial Arteries CLINICAL HISTORY: stroke like symptoms. TECHNIQUE: Real-time duplex ultrasound scan of the extracranial arteries integrating B-mode two-dimensional vascular structure, Doppler spectral analysis and color flow Doppler imaging. COMPARISON: No relevant prior studies available. FINDINGS: Right common carotid artery: The right common carotid artery demonstrates peak systolic velocities between 68 and 81 cm/s. No occlusion or significant stenosis on color flow and spectral Doppler imaging. Right internal carotid artery: Atherosclerotic plaque noted involving the right carotid bifurcation. The right internal carotid artery demonstrates peak systolic velocities between 98 and 99 cm/s. No occlusion or significant stenosis on color flow and spectral Doppler imaging. Right external carotid artery: Unremarkable. No occlusion or significant stenosis on color flow and spectral Doppler imaging. Right vertebral artery: There is antegrade flow noted in the right vertebral artery with peak systolic velocity of 62 cm/s. Right ICA/CCA ratio: The right ICA/CCA ratio is 1.2. Left common carotid artery: The left common carotid artery demonstrates peak systolic velocities between 115 and 76 cm/s. No occlusion or significant stenosis on color flow and spectral Doppler imaging. Left internal carotid artery: Atherosclerotic plaque noted involving the left carotid bifurcation. The left internal carotid artery demonstrates peak systolic velocities between 111 and 114 cm/s. No occlusion or significant stenosis on color flow and spectral Doppler imaging. Left external carotid artery: Unremarkable. No occlusion or significant stenosis on color flow and spectral Doppler imaging. Left vertebral artery: There is antegrade flow noted involving the left vertebral artery with peak systolic velocity of 40 cm/s. Left ICA/CCA ratio: The left ICA/CCA ratio is 1.5. Lymph nodes: Unremarkable. No lymphadenopathy. CAROTID STENOSIS REFERENCE USING SRU CRITERIA: Mild - <50% stenosis. ICA PSV is less than 125 cm/second and plaque or intimal thickening is visible. Moderate - 50-69% stenosis. ICA PSV is 125 to 230 cm/second and plaque is visible. Severe - 70-94% stenosis. ICA PSV is more than 230 cm/second and visible plaque with lumen narrowing is seen. Near occlusion - 95-99% stenosis. ICA PSV is variable and significant plaque with luminal narrowing is seen. Occluded - 100% stenosis. No flow identified. IMPRESSION: 1. Atherosclerotic disease involving both carotid bifurcations without duplex evidence for significant hemodynamic stenosis. 2. Antegrade flow noted involving the bilateral vertebral arteries. Electronically signed by: Sohail Hills MD 06/14/23 02:20 AM Head MRA 06/14/23 00:35 Exam(s): MRA HEAD Without Contrast EXAM: MR Angiography Head Without Intravenous Contrast CLINICAL HISTORY: stroke like symptoms. TECHNIQUE: Magnetic resonance angiography images of the head without intravenous contrast. COMPARISON: No relevant prior studies available. FINDINGS: Right internal carotid artery: No acute findings. Intracranial segment is patent with no significant stenosis. No aneurysm. Right anterior cerebral artery: Early branching pattern of the proximal right anterior cerebral artery. The anterior cerebral artery is patent. No occlusion or significant stenosis. No aneurysm. Right middle cerebral artery: Unremarkable. No occlusion or significant stenosis. No aneurysm. Right posterior cerebral artery: Unremarkable. No occlusion or significant stenosis. No aneurysm. Right vertebral artery: Unremarkable as visualized. Left internal carotid artery: No acute findings. Intracranial segment is patent with no significant stenosis. No aneurysm. Left anterior cerebral artery: Unremarkable. No occlusion or significant stenosis. No aneurysm. Left middle cerebral artery: Unremarkable. No occlusion or significant stenosis. No aneurysm. Left posterior cerebral artery: Unremarkable. No occlusion or significant stenosis. No aneurysm. Left vertebral artery: Unremarkable as visualized. Basilar artery: Unremarkable. No occlusion or significant stenosis. No aneurysm. IMPRESSION: Negative intracranial MRA examination. Electronically signed by: Sohail Hills MD 06/14/23 02:41 AM Brain MRI 06/14/23 08:43 MR brain wo con HISTORY: 82 years-old Female LUE nunmbness/weakness, stroke eval Acute weakness with stroke-like symptoms. COMPARISON: Head CT 06/13/2023. TECHNIQUE: Multiplanar and multisequence MRI of the brain was obtained without the use of IV contrast. FINDINGS: No restricted diffusion. Midline structures are unremarkable. Partially empty sella. Degenerative changes of the cervical spine. No acute intracranial hemorrhage, midline shift, abnormal extra-axial collection, hydrocephalus or intra-axial mass. Involutional changes. [id number] T2/FLAIR hyperintense foci throughout the white matter. Cerebral venous sinuses and major arterial flow voids appear patent. The skull, orbits and soft tissues are unremarkable. Prior bilateral lens repair. IMPRESSION: 1. Motion degraded exam without acute intracranial abnormality. 2. No acute or subacute infarct. 3. Involutional changes with chronic microvascular ischemic disease. ACT 112: Negative or not required by law. The above report was generated using voice recognition software. It may contain grammatical, syntax or spelling errors. Dictated: 06/14/2023 1:17 PM Transcribed: 06/14/2023 1:45 PM Kana [id number] [email or web address] Electronically signed by: Pancho Alvarado M.D. 06/14/2023 1:54 PM 06/14/23 03:33 06/15/23 04:53 Hospital Course (1) Left wrist pain: Presented with L hand/wrist pain and paresthesia of hand. No head or neck pain or shoulder pain. MRA head was normal, no significant carotid disease on duplex Added MRI brain for completeness - reviewed and negative for stroke LUE venous duplex negative for DVT Evaluation for stroke/TIA is negative and symptoms persist. Exam and history is consistent with an extremity problem rather than a BROKER ASSISTANT problem. -given the acute pain and tenderness it may be crystalline arthritis - CPPD or gout. Peripheral nerve compression is also a possibility though not in a clearcut PNS distribution. Paresthesias in hand could occur if soft tissue swelling present in the wrist. 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, soft tissue swelling is also commented on -add uric acid level - elevated - follow up with hand box coverer to consider allopurinol, has appt in a few weeks -trial prednisone 40 mg x 1 then 20 mg today and pain resolved. some pins and needles persist in hand only. will continue prednisone 5 mg daily x 3 days after discharge, she will adjust her short acting insulin to cover steroid hyperglycemia LUE peripheral nerve compression, probable L wrist/hand pseudogout flare, no evidence of stroke (2) Paresthesia: L hand, see above improving but still present (3) (HFpEF) heart failure with preserved ejection fraction: Euvolemic -Continue Bumex, metoprolol -Echo completed at last admission, shows preserved EF and Diastolic dysfunction II, some elevated pulmonary pressures -Follow with [facility] as outpatient, discussed with Alka Wyman at bedside today - has follow up next week (4) Cellulitis of right lower extremity: Improving since previous discharge, continue oral Augmentin (5) New onset a-fib: Diagnosed last admission -on DOAC and b-bijal - continue (6) DVT (deep venous thrombosis): HX of, on DOAC (7) PVD (peripheral vascular disease): (8) Type 2 diabetes mellitus with neurologic complication, with long-term current use of insulin: -Continue basal/bolus insulin (9) CAD (coronary artery disease): Plan Chronic/stable issues: CAD (coronary artery disease) -Continue Isosorbide and metoprolol CKD (chronic kidney disease), stage IV -Cr 3.24 bumped slightly since discharge (3.02 on day of discharge) -Renally dose medications, avoid nephrotoxins -BMP stable today Cr 3.15 Hypertension -JESSICA/ARB deferred due to renal dysfunction, spironolactone previously discontinued due to hyperkalemia -Metoprolol, hydralazine, Imdur, Bumex continued Chronic anemia -With prior iron studies showing iron saturation 47%, anemia consistent with chronic disease/renally mediated. Receives Procrit as an outpatient -Hemoglobin 8.7 on admission History of right breast invasive ductal carcinoma: Discontinued tamoxifen in 2022. Continue outpt f/u Adenocarcinoma of ascending colon: S/p hemicolectomy 08/2020. No lymphatic spread. Continue outpatient follow-up I updated her daughter at bedside day of discharge Total Time Total Time Spent Total Time Spent (In Minutes): I personally spent: 35 minutes today on clinical care activities including: reviewing chart notes and vital signs reviewing labs discussion with salesforce consultant(s) - CHF, message to hand box coverer examining and counseling the patient counseling the patient's family writing orders documentation Discharge Plan Discharge Items Patient Disposition: Home - Self-Care Reason For Visit: STROKE RULE OUT Discharge Diagnosis: Left arm and wrist pain and numbness Activity: Resume your previous activity Non-emergency contact: Primary Care Provider, Family Helper and Financial Advisor Trainee Call non-emergency contact if: you have any medication questions Follow-up/Referrals: Isaura Rashid CRNP [Primary Care Provider] - 06/22/23 10:30 am Diet: Carb Consistent or DM2 and Low Sodium (2gm) Addtl Attending Provider Instructions: You were evaluated for left arm / wrist / hand pain and numbness Evaluation for stroke was negative and we did not see signs of heart attack either I think this was caused by peripheral nerve compression and / or a flare of pseudogout (or less likely gout) - because your wrist was swollen and tender, which improved with prednisone Take prednisone at low dose for a few more days Adjust your short-acting insulin to cover high blood sugar from the prednisone - this effect should be much better by Sunday Try to keep your arm fairly straight while sleeping and avoid wearing your watch on that side until symptoms resolve Follow up with Dr. Butler about the elevated uric acid level and whether you need medication for that Pending Studies at Discharge: No Stand-Alone Forms: [facility] [employer], Smoking Cessation Medications and DC Order Prescriptions: New prednisone 5 mg tablet 5 mg PO DAILY Qty: 3 0RF Rx Instructions: start taking morning 06/16 Continued Procrit 2,000 unit/mL solution 2,000 unit subcut .D4selrp insulin aspart U-100 [Novolog FlexPen U-100 Insulin] 100 unit/mL (3 mL) insulin pen See Rx Instructions SQ TID Qty: 60 3RF Rx Instructions: use per sliding scale up to 60 units daily SQ isosorbide mononitrate 60 mg tablet extended release 24 hr 60 mg PO QAM Qty: 90 3RF Rx Instructions: TOTAL DOSE 90 MG--TAKES WITH 30 MG TAB. isosorbide mononitrate 30 mg tablet extended release 24 hr 30 mg PO QAM Qty: 90 3RF Rx Instructions: TOTAL DOSE 90 MG--TAKES WITH 60 MG TAB. hydralazine 100 mg tablet 100 mg PO TID Qty: 270 3RF bumetanide 0.5 mg tablet 0.5 mg PO BID Qty: 120 3RF atorvastatin 40 mg tablet 40 mg PO HS Qty: 90 3RF cilostazol 100 mg tablet 100 mg PO BID Qty: 180 3RF Rx Instructions: TAKE 1 TABLET TWICE A DAY aspirin 81 mg tablet,delayed release (DR/EC) 81 mg PO QPM Eliquis 2.5 mg tablet 2.5 mg PO BID Qty: 180 3RF Rx Instructions: Stop apixiban 5 mg BID (DME) pen needle, diabetic [BD Ultra-Fine Short Pen Needle] 31 gauge x 5/16" needle See Dose Instructions .ROUTE .MEDSUPPLY Qty: 30 Rx Instructions: use 1 needle 4 x daily calcitriol [Rocaltrol] 0.25 mcg capsule 0.25 mcg PO DAILY Rx Instructions: isnt sure of this dose- asked to bring bottle to follow up [facility] 06/12/23 insulin glargine [Lantus Solostar U-100 Insulin] 100 unit/mL (3 mL) insulin pen 40 unit subcut HS Qty: 60 3RF Rx Instructions: [facility]- pt reports this dose was lowered to 40 units "some time ago" metoprolol succinate 200 mg tablet extended release 24 hr 200 mg PO BID Qty: 180 3RF omega [id number] oil [Fish Oil] 1,000 mg (120 mg-180 mg) Capsule 1 cap PO QPM cyanocobalamin (vitamin B-12) 1,000 mcg Capsule 1,000 mcg PO QAM magnesium oxide 400 mg Capsule 400 mg PO BID fexofenadine [Gabby Allergy] 60 mg tablet 60 mg PO DAILY PRN (Reason: Allergy Symptoms) nystatin 100,000 unit/gram cream 1 applic topical BID PRN (Reason: Other) Rx Instructions: Apply to groin area. mupirocin 2 % ointment 1 applic topical BID PRN (Reason: Other) ketoconazole 2 % cream 1 applic topical BID PRN (Reason: Other) Rx Instructions: Apply to affected area. amoxicillin-pot clavulanate 875-125 mg tablet 1 tab PO BID Qty: 10 0RF Rx Instructions: ORDERED 06/12/23 diclofenac sodium [Voltaren Arthritis Pain] 1 % gel 2 g topical QID PRN (Reason: arthritic pain ) Qty: 100 3RF Rx Instructions: apply to single elbow, wrist or hand; for hand includes palm/fingers/back of hand alendronate [Fosamax] 70 mg tablet 70 mg PO WK Rx Instructions: SUNDAYS Discharge Orders: Discharge Order (Routine); Ordered 06/15/23 Ordered By: Charlene Vicente Admission Data Admit Date/Time: 06/13/23 23:34 Attending Provider: Charlene Vicente Admit Provider: Jennifer Noel Primary Care Provider: Isaura Rashid Other Providers: John Holland Other Interventions: Discharge Summary Assessment (RN) Last Done: 06/15/23 15:21 Coding Level of Care Code 31166 INP/OBS DISCH >30 MIN Diagnoses Left wrist pain M25.532 Paresthesia R20.2 (HFpEF) heart failure with preserved ejection fraction I50.30 Cellulitis of right lower extremity L03.115 New onset a-fib I48.91 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 transplanted heart: [place] heart Associated angina: without angina
== END 2023-06-15 18:09 | disposition home or self-care (01) ==
LOC: EDINP 17:14 → ED 17:14 → SUATTDRO 23:34 → 2W 23:57

== ENCOUNTER 2023-09-09 05:39 | Inpatient (IN) ==
--- NOTE | 2023-09-09 07:00 | Emergency Department Note ---
Impression & Plan Congestive heart failure, Chronic kidney disease ED Provider Note CHIEF COMPLAINT: Shortness of breath HISTORY OF PRESENT ILLNESS: This 83-year-old female patient with past medical history of congestive heart failure, DVT, peripheral vascular disease, hypertension, coronary artery disease status post CABG, breast cancer, type 2 diabetes, obesity, dyslipidemia, colon cancer, presents emergency department with complaints of shortness of breath since 2:00 this morning. The patient states she really was not ever able to go to sleep at about 2 AM woke up short of breath. At 4 AM she contacted her daughter discussing symptoms. Daughter brought her to the emergency department. They went to dinner last evening and ate German food. Patient is followed by Dr. Betancourt of cardiology. Patient does have a history of atrial fibrillation. REVIEW OF SYSTEMS: A review of systems was performed with positives and pertinent negatives listed in the history of present illness. 10 systems were reviewed and are otherwise negative. ALLERGIES: see below MEDICATIONS: see below PMH: see below SOCIAL HISTORY: see below DDx: Congestive heart failure, atrial fibrillation, acute coronary syndrome, pneumonia, aspiration, PE, pleural effusion among others PHYSICAL EXAM: Vital signs reviewed. General: Chronically ill-appearing 83-year-old female, in no significant distress. HEENT: No conjunctival injection no scleral icterus, PERRLA, neck supple. Moist mucous membranes. Cardiovascular: Normal rate, generally regular with occasional ectopy. Pulmonary: crackles to auscultation bilaterally, slightly increased work of breathing. Abdomen: Soft, nontender, nondistended, positive bowel sounds. Musculoskeletal: Atraumatic, no peripheral edema. Neurologic: Patient awake alert and oriented x 3, speech is clear Skin: Warm, dry, no rash EMERGENCY DEPARTMENT COURSE/MDM: This pt was evaluated and appeared to be in no distress. IV access was obtained and laboratory work was drawn. Patient was placed on the cardiac tech and noted to be in a normal sinus rhythm. Chest x-ray was performed and reveals evidence of congestive heart failure. Patient was medicated with IV Bumex. EKG reveals a sinus rhythm. Patient is noted to be slightly hypertensive and did require some supplemental nasal cannula oxygen for respiratory comfort. Patient's laboratory work is fairly reassuring, she is noted to have an acute on chronic renal insufficiency with only a slight elevation in the high-sensitivity troponin. Hemoglobin is 8.1 which is slightly lower than baseline. Patient's case was discussed with the hospitalist service to evaluate the patient for admission and further management. Patient and daughter are aware of plan and agreed. MONITORING: An order for cardiac monitoring was placed and the patient is noted to be in a normal sinus rhythm at 84 beats per minute. RADIOLOGY: Chest x-ray to my interpretation reveals post operative changes, cardiomegaly, congestive heart failure. EKG: To my interpretation is sinus rhythm at 74 bpm, left axis deviation, QTc of 437. With PVCs and PACs. DISPOSITION: Admission Past Med/Surg History Medical History Paresthesia of right lower extremity Neuroforaminal stenosis of lumbosacral spine Lumbosacral spondylosis New onset a-fib Right knee DJD History of colon cancer 2020- adenocarcinoma Chronic anticoagulation Small bowel obstruction 2020 > after colon surgery Ileus Encounter for pre-operative examination Anemia Mild- has been evaluated by heme/onc for recent dx colon cancer Hx of breast cancer right breast (Jun 2018). surgical intervention + radiation therapy DVT (deep venous thrombosis) Right upper leg DVT -- March 2020 -- placed on eliquis.-NO ISSUES SINCE Recent u/s from 07/07/20= shows continued evidence of right common femoral DVT. Osteoporosis Lumbar spinal stenosis Edema Peripheral vascular disease Hypertension Hx of acute respiratory failure WITH GB SURG 04/21/09 [facility] POST OP RESPIRATORY FAILURE-HAD TO BE VENTILATED,EXTUBATED NEXT DAY-PER PT SLOW TO WAKE UP IN GENERAL Right breast partial mastectomy 08/29/18 under [place] with LMA #4 x 3 attempts- atraumatic with good seal- no other issues noted CAD (coronary artery disease) s/p 3 vessel CABG 2006 Osteoarthritis Venous stasis dermatitis LLE Chronic kidney disease STAGE 3-FOLLOWS WITH DR LIND Last seen by nephro 07/20/20- kidney function stable at that time Hyperlipidemia Surgical History Hx of colonoscopy Hx of lymph node excision right axillary History of left knee replacement Status post dilation and curettage 08/26/20 Dr. Cathy Calderon- Hysteroscopy, Dilation and Curettage, Possible Polypectomy S/P laparoscopic colectomy (08/26/20) Laparoscopic Extended Hemicolectomy, Extensive enterolysis - Sohail Quiroga, DO History of esophagogastroduodenoscopy (EGD) S/P epidural steroid injection History of partial mastectomy of right breast no chemo, just radiation Status post trigger finger release X2 History of total knee replacement LEFT 2018 History of adverse response to anesthesia SLOW TO WAKE. PT HAD RESP FAILURE S/P KYLAH IN 2008 History of Moh's micrographic surgery for skin cancer S/P tendon repair R ARM History of cholecystectomy History of dilatation and curettage History of bilateral tubal ligation History of cataract surgery BL History of coronary artery bypass graft [place] [place] of cardiac cath 2006 NO ST[place] Family History Mother , age 38 heart disease due to rheumatic fever No problems noted. Father , age 73 heart disease No problems noted. Sister No problems noted. Sister No problems noted. Sister No problems noted. Sister No problems noted. Sister No problems noted. Daughter Myocardial infarction Breast cancer Family history of reaction to anesthesia SLOW TO WAKE UP/PONV Daughter Heart disease Other No family history of adverse response to anesthesia Denies family history of Ovarian cancer Prostate cancer Colorectal cancer Social History Smoking Status: Never smoker Second Hand Exposure: No; Do You Dip or Chew Tobacco: No; Hx Alcohol Use: Yes Alcohol type: wine Hx Substance Use: No Preferred Language: French Communication Ability: Effective Visual Impairment: Limited Hearing Ability: Normal History Card Clerk Required: No Beliefs That Will Affect Care: None marital status: / Current Living Situation: Alone current occupational status: retired How many Children do You have: 2 Feels Safe at Home: Yes Childhood Exposure to Second-Hand Smoke: No Diet: low salt and regular caffeine: No during the past year weight has: remained stable Dental Care, Regularly: No Physical Activity Frequency: 3-4 Times per Week Seatbelt Use: always Sunscreen Use: Yes Do you think of yourself as: straight/heterosexual Gender Identity: Female Assistive Devices: None Allergies Allergies Allergy/AdvReac Type Severity Reaction Status Date / Time spironolactone AdvReac Severe Hyperkalemi Verified 08/24/23 10:57 a sulfamethoxazole AdvReac Severe SEVERE Verified 08/24/23 10:57 [From Bactrim] VOMITING trimethoprim [From Bactrim] AdvReac Severe SEVERE Verified 08/24/23 10:57 VOMITING JESSICA Inhibitors AdvReac Intermediate ARF Verified 08/24/23 10:57 diclofenac AdvReac Intermediate ankle Verified 08/24/23 10:57 swelling iron AdvReac Intermediate nausea/ Verified 08/24/23 10:57 VOMITING Home Meds Home Medications Medication Instructions Recorded Confirmed cyanocobalamin (vitamin B-12) 1,000 mcg PO QAM 12/28/17 09/09/23 1,000 mcg capsule magnesium oxide 400 mg PO BID 12/28/17 09/09/23 omega [id number]-[id number]-fish oil 1,000 mg 1 cap PO QPM 12/28/17 09/09/23 (120 mg-180 mg) capsule (Fish Oil) fexofenadine 60 mg tablet (Gabby 60 mg PO DAILY PRN Allergy Symptoms 10/02/18 09/09/23 Allergy) pen needle, diabetic 31 gauge x #30 ea 11/22/18 08/24/2309/19" (BD Ultra-Fine Short Pen Needle) aspirin 81 mg tablet,delayed 81 mg PO QPM 07/15/20 09/09/23 release epoetin jase 2,000 unit/mL 2,000 unit subcut .[id number] 12/02/20 09/09/23 injection solution (Procrit) alendronate 70 mg tablet (Fosamax) 70 mg PO WK 06/13/23 09/09/23 gabapentin 100 mg capsule 100 mg PO TID 09/09/23 09/09/23 Previous Rx's Medication Instructions Recorded insulin aspart U-100 100 unit/mL See Rx Instructions subcut TID #60 08/16/21 (3 mL) subcutaneous pen (Novolog mL FlexPen U-100 Insulin aspart) isosorbide mononitrate 30 mg 30 mg PO QAM #90 tabs 12/25/22 tablet,extended release 24 hr isosorbide mononitrate 60 mg 60 mg PO QAM #90 tabs 12/25/22 tablet,extended release 24 hr hydralazine 100 mg tablet 100 mg PO TID #270 tabs 12/28/22 apixaban 2.5 mg tablet (Eliquis) 2.5 mg PO BID #180 tabs 01/29/23 bumetanide 0.5 mg tablet 0.5 mg PO BID #120 tabs 05/15/23 atorvastatin 40 mg tablet 40 mg PO HS #90 tabs 05/23/23 cilostazol 100 mg tablet 100 mg PO BID #180 tabs 06/05/23 diclofenac sodium 1 % topical gel 2 g topical QID PRN arthritic pain 06/12/23 (Voltaren Arthritis Pain) #100 grams insulin glargine 100 unit/mL (3 40 unit (0.4 mL) subcut HS #60 mL 06/13/23 mL) subcutaneous pen (Lantus Solostar U-100 Insulin) metoprolol succinate 200 mg 200 mg PO BID #180 tabs 06/13/23 tablet,extended release 24 hr hydrocodone 5 mg-acetaminophen 325 0.5 - 1 tab PO Q6H PRN pain #30 09/07/23 mg tablet tabs calcitriol 0.25 mcg capsule 0.25 mcg PO DAILY #90 caps 09/10/23 (Rocaltrol) peg 3350-sod sulf,[id number] See Rx Instructions PO .COMPLEX #2 09/14/23 178.7-7.3-0.5-1.12-0.9 gram oral mL soln (Suflave) Results & Data (ED) Vital Signs Vital Signs - 24 hr 09/09/23 06:04 09/09/23 06:04 09/09/23 06:04 Temperature 37.1 C Temperature Source Oral Pulse Rate 84 Pulse Rate [Apical] Pulse Rhythm Regular Pulse Rhythm [Apical] Pulse Strength Normal Pulse Strength [Apical] Respiratory Rate 32 H Respiratory Effort / Characteristics Non-Labored Non-Labored Respiratory Depth Deep Normal Respiratory Pattern Regular Blood Pressure 198/97 H Blood Pressure [Left Arm] Blood Pressure Mean 130 Blood Pressure Mean [Left Arm] Pulse Oximetry 92 96 Oxygen Delivery Method Room Air Nasal Cannula Oxygen Flow Rate 2 Sepsis Recent Fever Within 48 Hours No Sepsis New/Unexplained Change in Mental Status No Sepsis Action Taken by Nursing No Action Required 09/09/23 06:04 09/09/23 06:10 09/09/23 06:14 Temperature 37.1 C Temperature Source Oral Pulse Rate 84 80 Pulse Rate [Apical] 84 Pulse Rhythm Regular Pulse Rhythm [Apical] Regular Pulse Strength Pulse Strength [Apical] Normal Respiratory Rate 32 H 32 H Respiratory Effort / Characteristics Non-Labored Respiratory Depth Deep Respiratory Pattern Regular Blood Pressure Blood Pressure [Left Arm] 198/97 H Blood Pressure Mean Blood Pressure Mean [Left Arm] 130 Pulse Oximetry 96 96 Oxygen Delivery Method Nasal Cannula Nasal Cannula Oxygen Flow Rate 2 2 Sepsis Recent Fever Within 48 Hours Sepsis New/Unexplained Change in Mental Status Sepsis Action Taken by Residential Medications Current Medication List: was personally reviewed by me Laboratory Data Attestation: I reviewed the patient's lab results. 09/13/23 09:19 09/13/23 09:19 Lab Results 09/09/23 09/09/23 09/09/23 Range/Units 06:39 07:17 09:30 WBC 6.32 (4.8-10.8) K/ul RBC 2.63 L (4.20-5.40) M/uL Hgb 8.2 L (12.0-16.0) g/dl Hct 26.5 L (37.0-47.0) % MCV 100.8 H (80.0-100.0) fL MCH 31.2 (25.0-34.0) pg MCHC 30.9 L (32.0-36.0) g/dL RDW Std Deviation 66.6 H (36.4-46.3) fL RDW Coeff of Kirsty 18.1 H (11.5-14.5) % Plt Count 218 (130-400) K/uL MPV 10.3 (9.4-12.4) fL Immature Gran % (Auto) 0.5 % Neut % (Auto) 79.8 % Lymph % (Auto) 7.4 % Emanuel % (Auto) 10.1 % Eos % (Auto) 1.9 % Baso % (Auto) 0.3 % Neut # (Auto) 5.04 (1.40-6.50) K/uL Lymph # (Auto) 0.47 L (1.20-3.40) K/uL Emanuel # (Auto) 0.64 H (0.11-0.59) K/uL Eos # (Auto) 0.12 (0.00-0.50) K/uL Baso # (Auto) 0.02 (0.00-0.20) K/uL Immature Gran # (Auto) 0.03 (0.01-0.20) K/uL PT 10.3 (9.0-12.0) Seconds INR 0.9 (0.9-1.1) APTT 26 (21-31) Seconds PTT Ratio 1.0 VBG pH 7.40 (7.36-7.41) VBG pCO2 43 (38-50) mmHg VBG pO2 31 mmHg VBG HCO3 27 mmol/L VBG O2 Saturation < 60.0 % VBG Base Excess 1.5 mEq/L Sodium 140 (136-145) mmol/L Potassium 4.4 (3.5-5.1) mmol/L Chloride 108 H (98-107) mmol/L Carbon Dioxide 24 (21-32) mmol/L Anion Gap 8 (3-11) BUN 51 H (6-23) mg/dl Creatinine 2.57 H (0.6-1.2) mg/dl Est Cr Clr Drug Dosing 18.5 ml/min Est GFR ( Amer) 19.4 ml/min Est GFR (Non-Af Amer) 16.7 ml/min BUN/Creatinine Ratio 19.8 (10-20) Glucose 175 H (70-99(Fasting)) mg/dl Calcium 8.3 L (8.6-10.3) mg/dl Magnesium 2.2 (1.7-2.4) mg/dl Total Bilirubin 0.9 (0.2-1.0) mg/dl AST 46 H (13-39) U/L ALT 28 (7-52) U/L Alkaline Phosphatase 71 (34-104) U/L Troponin I High Sens 20.4 H 38.1 H D (0-14) pg/ml B-Natriuretic Peptide 1389 H (0-100) pg/ml Total Protein 6.2 (6.0-8.3) gm/dl Albumin 3.4 (3.4-5.0) gm/dl Globulin 2.8 (2.5-4.0) gm/dl Albumin/Globulin Ratio 1.2 (0.9-2) Adenovirus (PCR) Not Detected (NotDetected) B. pertussis DNA (PCR) Not Detected (NotDetected) B.parapertussis DNA PCR Not Detected (NotDetected) C. pneumoniae DNA (PCR) Not Detected (NotDetected) Coronavirus OC43 (PCR) Not Detected (NotDetected) Coronavirus HKU1 (PCR) Not Detected (NotDetected) Coronavirus 229E (PCR) Not Detected (NotDetected) SARS-CoV-2 (PCR) Not Detected (NotDetected) Coronavirus NL63 (PCR) Not Detected (NotDetected) Human Metapneumovir PCR Not Detected (NotDetected) Influenza Type A (PCR) Not Detected (NotDetected) Influenza Type B (PCR) Not Detected (NotDetected) M. pneumoniae (PCR) Not Detected (NotDetected) Parainfluenza 1 (PCR) Not Detected (NotDetected) Parainfluenza 2 (PCR) Not Detected (NotDetected) Parainfluenza 3 (PCR) Not Detected (NotDetected) Parainfluenza 4 (PCR) Not Detected (NotDetected) RSV (PCR) Not Detected (NotDetected) Entero/Rhino (PCR) Not Detected (NotDetected) Administered Medications Discontinued Medications Acetaminophen (Acetaminophen 325 Mg Tab) 650 mg PO Q4H PRN PRN Reason: Pain or Fever Stop: 10/10/23 03:22 Last Admin: 09/10/23 18:25 Dose: 650 mg Documented By: Admin: 09/10/23 03:48 Dose: 650 mg Documented By: GORDON Alendronate Sodium (Alendronate Sodium 70 Mg Tab) 70 mg PO Mo@0600 [facility] Stop: 10/10/23 05:59 Last Admin: 09/10/23 05:50 Dose: 70 mg Documented By: GORDON Apixaban (Apixaban 2.5 Mg Tab) 2.5 mg PO NOW STA Stop: 09/09/23 10:46 Last Admin: 09/09/23 12:48 Dose: 2.5 mg Documented By: MARYELLEN Apixaban (Apixaban 2.5 Mg Tab) 2.5 mg PO BID TRISH Stop: 10/09/23 20:59 Last Admin: 09/13/23 08:31 Dose: 2.5 mg Documented By: Admin: 09/12/23 20:59 Dose: 2.5 mg Documented By: Admin: 09/12/23 08:28 Dose: 2.5 mg Documented By: Admin: 09/12/23 00:10 Dose: 2.5 mg Documented By: Admin: 09/11/23 08:37 Dose: 2.5 mg Documented By: Admin: 09/10/23 21:29 Dose: 2.5 mg Documented By: Admin: 09/10/23 09:07 Dose: 2.5 mg Documented By: Admin: 09/09/23 20:34 Dose: 2.5 mg Documented By: FELTON Aspirin (Aspirin 81 Mg Ectab) 81 mg PO QPM TRISH Stop: 10/09/23 20:59 Last Admin: 09/12/23 20:20 Dose: 81 mg Documented By: Admin: 09/11/23 22:15 Dose: 81 mg Documented By: Admin: 09/10/23 21:29 Dose: 81 mg Documented By: Admin: 09/09/23 20:33 Dose: 81 mg Documented By: FELTON Atorvastatin Calcium (Atorvastatin 40 Mg Tab) 40 mg PO HS TRISH Stop: 10/09/23 20:59 Last Admin: 09/12/23 20:21 Dose: 40 mg Documented By: Admin: 09/11/23 22:15 Dose: 40 mg Documented By: Admin: 09/10/23 21:30 Dose: 40 mg Documented By: Admin: 09/09/23 20:34 Dose: 40 mg Documented By: FELTON Bumetanide (Bumetanide 1 Mg Tab) 0.5 mg PO BID TRISH Stop: 10/11/23 20:59 Last Admin: 09/13/23 08:31 Dose: 0.5 mg Documented By: Admin: 09/12/23 20:21 Dose: 0.5 mg Documented By: Admin: 09/12/23 08:28 Dose: 0.5 mg Documented By: Admin: 09/11/23 22:15 Dose: 0.5 mg Documented By: DHRUV Calcitriol (Calcitriol 0.25 Mcg Capsule) 0.25 mcg PO DAILY TRISH Stop: 10/10/23 08:59 Last Admin: 09/13/23 08:32 Dose: 0.25 mcg Documented By: Admin: 09/12/23 08:28 Dose: 0.25 mcg Documented By: Admin: 09/11/23 08:37 Dose: 0.25 mcg Documented By: Admin: 09/10/23 09:07 Dose: 0.25 mcg Documented By: SATHYA Cilostazol (Cilostazol 100 Mg Tab) 100 mg PO BID TRISH Stop: 10/09/23 20:59 Last Admin: 09/13/23 08:32 Dose: 100 mg Documented By: Admin: 09/12/23 20:24 Dose: 100 mg Documented By: Admin: 09/12/23 08:28 Dose: 100 mg Documented By: Admin: 09/11/23 22:16 Dose: 100 mg Documented By: Admin: 09/11/23 08:37 Dose: 100 mg Documented By: Admin: 09/10/23 21:29 Dose: 100 mg Documented By: Admin: 09/10/23 09:07 Dose: 100 mg Documented By: Admin: 09/09/23 20:32 Dose: 100 mg Documented By: FELTON Docusate Sodium (Docusate Sodium 100 Mg Cap) 100 mg PO BID TRISH Stop: 10/10/23 20:59 Last Admin: 09/13/23 08:32 Dose: 100 mg Documented By: Admin: 09/12/23 20:22 Dose: 100 mg Documented By: Admin: 09/12/23 08:29 Dose: 100 mg Documented By: Admin: 09/11/23 22:17 Dose: 100 mg Documented By: Admin: 09/11/23 08:37 Dose: 100 mg Documented By: Admin: 09/10/23 21:28 Dose: 100 mg Documented By: WILLARD Furosemide (Furosemide 40 Mg/4 Ml Vial) 40 mg IV ONE STA Stop: 09/09/23 06:39 Last Admin: 09/09/23 07:01 Dose: Not Given Documented By: SRL Furosemide (Furosemide 40 Mg/4 Ml Vial) 40 mg IV ONE ONE Stop: 09/12/23 13:27 Last Admin: 09/12/23 13:55 Dose: 40 mg Documented By: EL Gabapentin (Gabapentin 100 Mg Cap) 100 mg PO TID TRISH Stop: 10/09/23 20:59 Last Admin: 09/13/23 13:19 Dose: 100 mg Documented By: Admin: 09/13/23 08:32 Dose: 100 mg Documented By: Admin: 09/12/23 20:22 Dose: 100 mg Documented By: Admin: 09/12/23 15:45 Dose: 100 mg Documented By: Admin: 09/12/23 08:29 Dose: 100 mg Documented By: Admin: 09/11/23 22:18 Dose: 100 mg Documented By: Admin: 09/11/23 15:21 Dose: 100 mg Documented By: Admin: 09/11/23 08:37 Dose: 100 mg Documented By: Admin: 09/10/23 21:28 Dose: 100 mg Documented By: Admin: 09/10/23 15:55 Dose: 100 mg Documented By: Admin: 09/10/23 09:03 Dose: 100 mg Documented By: Admin: 09/09/23 20:33 Dose: 100 mg Documented By: FELTON Hydralazine HCl (Hydralazine Tab 50 Mg Tab) 100 mg PO NOW STA Stop: 09/09/23 10:46 Last Admin: 09/09/23 12:47 Dose: 100 mg Documented By: MARYELLEN Hydralazine HCl (Hydralazine Tab 50 Mg Tab) 100 mg PO TID TRISH Stop: 10/09/23 20:59 Last Admin: 09/13/23 13:19 Dose: 100 mg Documented By: Admin: 09/13/23 08:32 Dose: 100 mg Documented By: Admin: 09/12/23 20:22 Dose: 100 mg Documented By: Admin: 09/12/23 15:45 Dose: 100 mg Documented By: Admin: 09/12/23 08:29 Dose: 100 mg Documented By: Admin: 09/11/23 22:18 Dose: 100 mg Documented By: Admin: 09/11/23 15:21 Dose: 100 mg Documented By: Admin: 09/11/23 08:37 Dose: 100 mg Documented By: Admin: 09/10/23 21:29 Dose: 100 mg Documented By: Admin: 09/10/23 15:54 Dose: 100 mg Documented By: Admin: 09/10/23 09:07 Dose: 100 mg Documented By: Admin: 09/09/23 20:31 Dose: 100 mg Documented By: FELTON Hydralazine HCl (Hydralazine Hcl 20 Mg/Ml Vial) 10 mg IV NOW STA Stop: 09/10/23 03:56 Last Admin: 09/10/23 04:19 Dose: 10 mg Documented By: GORDON Bumetanide 1 mg/ Syringe 4 mls @ 4 mls/min IV ONE ONE Stop: 09/09/23 06:45 Last Admin: 09/09/23 08:28 Dose: 4 mls/min Documented By: JESUS Bumetanide 0.5 mg/ Syringe 2 mls @ 4 mls/min IV BID@0900,1700 [facility] Stop: 10/09/23 16:59 Last Admin: 09/10/23 15:55 Dose: 4 mls/min Documented By: Admin: 09/10/23 08:23 Dose: 4 mls/min Documented By: Admin: 09/09/23 17:23 Dose: 4 mls/min Documented By: FELTON Insulin Aspart (Insulin Aspart Per Unit Charge) 0 units SC ACHS [facility] Stop: 10/09/23 11:29 Last Admin: 09/13/23 13:18 Dose: 2 units Documented By: EL Co-signed By: SATHYA Admin: 09/13/23 09:21 Dose: Not Given Documented By: EL Co-signed By: SATHYA Admin: 09/12/23 20:24 Dose: 2 units Documented By: DHRUV Co-signed By: TYRON Admin: 09/12/23 18:21 Dose: 3 units Documented By: EL Co-signed By: MILTON Admin: 09/12/23 13:02 Dose: 1 units Documented By: EL Co-signed By: SUDHIR Admin: 09/12/23 09:06 Dose: 1 units Documented By: EL Co-signed By: [id number] Admin: 09/11/23 22:29 Dose: Not Given Documented By: Admin: 09/11/23 18:18 Dose: 3 units Documented By: EMMY Co-signed By: MEGAN Admin: 09/11/23 12:43 Dose: 3 units Documented By: EMMY Co-signed By: LÁZARO Admin: 09/11/23 08:43 Dose: 3 units Documented By: EMMY Co-signed By: LÁZARO Admin: 09/10/23 21:28 Dose: Not Given Documented By: WILLARD Co-signed By: MARYANN Admin: 09/10/23 17:44 Dose: 2 units Documented By: SATHYA Co-signed By: [id number] Admin: 09/10/23 12:33 Dose: 2 units Documented By: SATHYA Co-signed By: [id number] Admin: 09/10/23 08:48 Dose: 1 units Documented By: SATHYA Co-signed By: [id number] Admin: 09/09/23 20:40 Dose: Not Given Documented By: Admin: 09/09/23 18:18 Dose: 1 units Documented By: FELTON Co-signed By: Admin: 09/09/23 14:44 Dose: Not Given Documented By: MARYELLEN Insulin Glargine (Lantus Per Unit Charge) 20 units SQ BID TRISH Stop: 10/09/23 20:59 Last Admin: 09/11/23 08:43 Dose: 20 units Documented By: EMMY Co-signed By: LÁZARO Admin: 09/10/23 21:28 Dose: 20 units Documented By: WILLARD Co-signed By: MARYANN Admin: 09/10/23 08:48 Dose: 20 units Documented By: SATHYA Co-signed By: [id number] Admin: 09/09/23 20:45 Dose: 20 units Documented By: FELTON Co-signed By: MANNY Insulin Glargine (Lantus Per Unit Charge) 10 units SQ BID [facility] Stop: 10/11/23 20:59 Last Admin: 09/13/23 09:25 Dose: 10 units Documented By: EL Co-signed By: SATHYA Admin: 09/12/23 20:26 Dose: 10 units Documented By: DHRUV Co-signed By: TYRON Admin: 09/12/23 09:06 Dose: 10 units Documented By: EL Co-signed By: [id number] Admin: 09/11/23 22:37 Dose: 10 units Documented By: DHRUV Co-signed By: WILLARD Isosorbide Mononitrate (Isosorbide Emanuel Extended Rel 30 Mg Tabcr) 90 mg PO QAM [facility] Stop: 10/10/23 08:59 Last Admin: 09/13/23 08:32 Dose: 90 mg Documented By: Admin: 09/12/23 08:29 Dose: 90 mg Documented By: Admin: 09/11/23 08:37 Dose: 90 mg Documented By: Admin: 09/10/23 09:06 Dose: 90 mg Documented By: SATHYA Ketorolac Tromethamine (Ketorolac Tromethamine 15 Mg/Ml Vial) 15 mg IV NOW STA Stop: 09/10/23 06:00 Last Admin: 09/10/23 06:09 Dose: 15 mg Documented By: GORDON Magnesium Oxide (Magnesium Oxide 400 Mg Tab) 400 mg PO BID TRISH Stop: 10/09/23 20:59 Last Admin: 09/13/23 08:32 Dose: 400 mg Documented By: Admin: 09/12/23 20:23 Dose: 400 mg Documented By: Admin: 09/12/23 08:29 Dose: 400 mg Documented By: Admin: 09/11/23 22:18 Dose: 400 mg Documented By: Admin: 09/11/23 08:37 Dose: 400 mg Documented By: Admin: 09/10/23 21:29 Dose: 400 mg Documented By: Admin: 09/10/23 09:05 Dose: 400 mg Documented By: Admin: 09/09/23 20:32 Dose: 400 mg Documented By: FELTON Metoprolol Succinate (Metoprolol Succ 50mg Ext Rel Tab) 200 mg PO BID TRISH Stop: 10/09/23 20:59 Last Admin: 09/13/23 08:32 Dose: 200 mg Documented By: Admin: 09/12/23 20:23 Dose: 200 mg Documented By: Admin: 09/12/23 08:29 Dose: 200 mg Documented By: Admin: 09/11/23 22:19 Dose: 200 mg Documented By: Admin: 09/11/23 08:37 Dose: 200 mg Documented By: Admin: 09/10/23 21:29 Dose: 200 mg Documented By: Admin: 09/10/23 09:05 Dose: 200 mg Documented By: Admin: 09/09/23 20:32 Dose: 200 mg Documented By: FELTON Multi-Ingredient Cream (Eucerin Cr 120 Gm Jar) 1 appln EXT BID TRISH Stop: 10/10/23 20:59 Last Admin: 09/13/23 08:32 Dose: Not Given Documented By: Admin: 09/12/23 21:51 Dose: Not Given Documented By: Admin: 09/12/23 08:27 Dose: Not Given Documented By: Admin: 09/12/23 00:07 Dose: Not Given Documented By: Admin: 09/11/23 08:38 Dose: 1 appln Documented By: Admin: 09/10/23 21:30 Dose: 1 appln Documented By: WILLARD Nitroglycerin (Nitroglycerin 2% Ointment 30gm Tube) 0.5 inch EXT NOW STA Stop: 09/09/23 06:39 Last Admin: 09/09/23 07:30 Dose: 0.5 inch Documented By: JESUS Nystatin (Nystatin Powder 15gm Btl) 1 appln EXT NOW STA Stop: 09/09/23 08:19 Last Admin: 09/09/23 09:28 Dose: 1 appln Documented By: JESUS Nystatin (Nystatin Powder 15gm Btl) 1 appln EXT TID TRISH Stop: 10/09/23 13:59 Last Admin: 09/13/23 13:19 Dose: 1 appln Documented By: Admin: 09/13/23 09:25 Dose: 1 appln Documented By: Admin: 09/12/23 20:23 Dose: 1 appln Documented By: Admin: 09/12/23 13:56 Dose: 1 appln Documented By: Admin: 09/12/23 08:29 Dose: 1 appln Documented By: Admin: 09/12/23 00:10 Dose: 1 appln Documented By: Admin: 09/11/23 12:45 Dose: 1 appln Documented By: Admin: 09/11/23 08:38 Dose: 1 appln Documented By: Admin: 09/10/23 21:30 Dose: 1 appln Documented By: Admin: 09/10/23 12:34 Dose: 1 appln Documented By: Admin: 09/10/23 08:24 Dose: 1 appln Documented By: Admin: 09/09/23 20:31 Dose: 1 appln Documented By: Admin: 09/09/23 14:03 Dose: Not Given Documented By: SWTrinity Discharge Plan Visit Data Chief Complaint: Shortness of Breath/Dyspnea Stated Complaint: SOB ED Provider: Debbie Patel Discharge Problem: Congestive heart failure, Chronic kidney disease Patient Disposition: Admitted As Inpatient Discharge Instructions Interventions: ED Discharge Assessment Last Done: 09/09/23 11:30 Discharge Problem: Congestive heart failure Qualifiers: Heart failure type: unspecified Heart failure chronicity: acute on chronic Q ualified Code(s): I50.9 - Heart failure, unspecified Chronic kidney disease Qualifiers: Chronic kidney disease stage: unspecified stage Qualified Code(s): N18.9 - Chronic kidney disease, unspecified
[2023-09-09] MEDS: FUROSEMIDE 40 MG/4 ML VIAL IV STA (07:01)
[2023-09-09] MEDS: NITROGLYCERIN 2% OINTMENT 30GM TUBE EXT STA (07:30)
[2023-09-09 07:33] LABS: Base Excess VBG 1.5 mEq/L; HCO3 VBG 27 mmol/L; Oxygen Saturation VBG < 60.0 %; PCO2 VBG 43 mmHg (38-50); PO2 VBG 31 mmHg
[2023-09-09 07:34] LABS: Basophils # (auto) 0.02 K/uL (0.00-0.20); Basophils % (auto) 0.3 %; Eosinophils # (auto) 0.12 K/uL (0.00-0.50); Eosinophils % (auto) 1.9 %; Hematocrit (blood only) 26.5 % (37.0-47.0); Hemoglobin 8.2 g/dl (12.0-16.0); Immature Granulocytes # (auto) 0.03 K/uL (0.01-0.20); Immature Granulocytes % (auto) 0.5 %; Lymphocytes # (auto) 0.47 K/uL (1.20-3.40); Lymphocytes % (auto) 7.4 %; Mean Corpuscular Hemoglobin 31.2 pg (25.0-34.0); Mean Corpuscular Hgb Conc 30.9 g/dL (32.0-36.0); Mean Corpuscular Volume 100.8 fL (80.0-100.0); Mean Platelet Volume 10.3 fL (9.4-12.4); Monocytes # (auto) 0.64 K/uL (0.11-0.59); Monocytes % (auto) 10.1 %; Neutrophils # (auto) 5.04 K/uL (1.40-6.50); Neutrophils % (auto) 79.8 %; Platelet Count 218 K/uL (130-400); RDW Coefficient of Variation 18.1 % (11.5-14.5); RDW Standard Deviation 66.6 fL (36.4-46.3); Red Blood Count 2.63 M/uL (4.20-5.40); White Blood Count 6.32 K/ul (4.8-10.8)
[2023-09-09 07:40] LABS: INR 0.9 (0.9-1.1); Partial Thromboplastin Time 26 Seconds (21-31); Prothrombin Time 10.3 Seconds (9.0-12.0)
--- NOTE | 2023-09-09 07:51 | XRay Report ---
XR chest 1V portable HISTORY: Dyspnea COMPARISON: Chest 08/15/2023. FINDINGS: No pneumothorax. There is a small left pleural effusion. The heart is mildly enlarged. Ther e are poststernotomy changes. There is diffuse interstitial/vascular thickening which has progressed. This is consistent with mild pulmonary edema. No acute fractures. No new focal lung consolidations. Left basilar linear densities favor subsegmental atelectasis. IMPRESSION: Cardiomegaly with mild interstitial pulmonary edema and a small left pleural effusion. ACT 112: Negative or not required by law. Electronically signed by: Tulio Escobar M.D. 09/09/2023 7:50 AM
[2023-09-09 07:52] LABS: Albumin Globulin Ratio 1.2 (0.9-2); Albumin Level 3.4 gm/dl (3.4-5.0); BUN Creatinine Ratio 19.8 (10-20); Bilirubin,Total 0.9 mg/dl (0.2-1.0); Calcium 8.3 mg/dl (8.6-10.3); Creatinine Clr Calc Pharmacy 18.5 ml/min; Est GFR (African American) 19.4 ml/min; Est GFR (Non-African American) 16.7 ml/min; Globulin 2.8 gm/dl (2.5-4.0); Magnesium 2.2 mg/dl (1.7-2.4); Potassium 4.4 mmol/L (3.5-5.1); Total Protein 6.2 gm/dl (6.0-8.3)
[2023-09-09 07:53] LABS: Adenovirus PCR Not Detected (NotDetected); Bordetella parapertussis PCR Not Detected (NotDetected); Bordetella pertussis PCR Not Detected (NotDetected); Chlamydia pneumoniae PCR Not Detected (NotDetected); Coronavirus 229E PCR Not Detected (NotDetected); Coronavirus CoV-2 (COVID19)PCR Not Detected (NotDetected); Coronavirus HKU1 PCR Not Detected (NotDetected); Coronavirus NL63 PCR Not Detected (NotDetected); Coronavirus OC43PCR Not Detected (NotDetected); Human Metapneumovirus PCR Not Detected (NotDetected); Influenza A PCR Not Detected (NotDetected); Influenza B PCR Not Detected (NotDetected); Mycoplasma pneumoniae PCR Not Detected (NotDetected); Parainfluenza Virus 1 PCR Not Detected (NotDetected); Parainfluenza Virus 2 PCR Not Detected (NotDetected); Parainfluenza Virus 3 PCR Not Detected (NotDetected); Parainfluenza Virus 4 PCR Not Detected (NotDetected); Respiratory Syncytial VirusPCR Not Detected (NotDetected); Rhinovirus/Enterovirus PCR Not Detected (NotDetected)
[2023-09-09 07:58] LABS: Troponin I High Sensitivity 20.4 pg/ml (0-14)
[2023-09-09] MEDS: BUMETANIDE 1 MG in SYRINGE 0 ML IV ONE (08:28)
[2023-09-09] MEDS: NYSTATIN POWDER 15GM BTL EXT STA (09:28)
--- NOTE | 2023-09-09 10:29 | History & Physical Report ---
Date of Service September 09, 2023 Assessment & Plan (1) Volume overload: Plan: -Admit to med/tele on pulse oximetry -Currently stable on 2L NC and in no respiratory distress -Presented to the ED early this am in respiratory distress since eating at a [place]ish restaurant for dinner on 09/07 -Noted to have pulmonary edema and small left pleural effusion -Weight is up to 208lbs today, dry weight per CHF clinic is 200-205 -BNP of 1389, increased from 826 on 06/09/23 -Patient has not urinated since receiving 1mg IV Bumex at 0647 this am, bladder scan at the time of admission shows >690 cc -Suspect that a large portion of her volume is due to urinary retention and CKD instead of pure CHF -Renal function and electrolytes are currently stable -S/P 1mg IV bumex and 0.5 inches nitro paste in the ED -We will place a sims cath now and obtain CT of the abd/pelvis wo con for further evaluation -Will continue with 0.5 mg IV bumex BID for now, int he past her renal function has decreased with large doses of diuretics, this imay have been due to undiagnosed urinary retention compared to her kidneys being over diuresed -Monitor intake/output Q-shit, daily weights -Home Eliquis for DVT PPX -HH/DMII diet with 2gm sodiums and 1800 mL restrictions -AM CBC, BMP, mag, PT/INR (2) Hypoxia: Plan: -Patient has been requiring 1-2L NC since arrival -Not on home O2, denies previous hx of KITA -Likely due to volume overload -In no respiratory distress -Continue treatment per Volume overload plan -Incentive spirometry, flutter therapy, Prn O2 to keep SpO2 between 92-95% (3) Paroxysmal atrial fibrillation: Plan: -Currently stable -Continue Eliquis and metoprolol (4) Urinary retention: Plan: -Will place sims cath now -Follow Ct of the abd/pelvis wo con -Continue IV diuresis -Will need voiding trial prior to DC (5) Elevated troponin: Plan: -Initial high sen trop elevated at 29-->38 on 2 hour repeat -Denies chest discomfort -No acute ST segment or T-wave changes on ECG -Likely due to demand from volume overload and hypoxia -Will continue to trend trop until it reaches a plateau -Continue to monitor on tele (6) Swelling of both lower extremities: Plan: -Patient noted to have significant, symmetrical BL LE venous stasis with clear drainage -No signs of infection -Now S/P BL JESSICA wraps placed by nursing staff at time of admission -Continue with jessica wraps and care per volume overload -Wound care nurse consult placed (7) Fungal infection of skin of abdomen: Plan: -Noted to have erythema and skin breakdown in the folds of the BL groin and abdomen consistent with fungal infection -S/P Nystatin powder in the ED -Will continue with TID scheduled nystatin powder for now -Wound care nurse consult (8) Type 2 diabetes mellitus with neurologic complication, with long-term current use of insulin: Plan: -Monitor BSG ACHS, goal is 110-160 -Normally takes 40 units HS lantus -Will convert to 20 units BID for now -Start CF 50 and CR 15 -Adjust regimen as needed (9) Hypertension: Plan: -Initially hypertensive with systolics in the 200's on arrival -Currently stable after 1mg IV bumex and 0.5 inches nitro paste -Did not have am antihypertensives -Will give am dose of TID hydralazine now -Communication order placed to remove nitro paste approximately 1 hour after patient receives Hydralazine >Or Sooner if BP starts to drop -Continue Hydralazine, Imdur, and IV diuresis Plan The patient was discussed with Dr. Tracey at the time of the admission History of Present Illness Chief Complaint: SOB/HOPPER Primary Care Provider: MATT Pelletier Patricia Unger is a 83 year-old female with a past medical history of HFpEF, CABG in 2006, CKD, hyperlipidemia, hypercalcemia, type 2 diabetes mellitus, PVD, paroxysmal afib and DVT (on Eliquis) who presented to the [facility] ED via EMS on 09/09/23 with a chief complaint of progressive SOB/HOPPER over the past 12 hours. On arrival to the ED she was noted to be hypertensive at 198/97, tachypneic at 38, and stable on 2L NC started by EMS. Labs were significant for a VBG WNL, initial high sen trop of 20 38 on 2 hour repeat, BNP of 1389 (up from 826 as of 06/09/23), and negative full respiratory biofire. Chest xray was read as Cardiomegaly with mild interstitial pulmonary edema and a small left pleural effusion.. Prior to admission the patient was given 1mg IV Bumex, 0.5 inches Nitro paste, and external nystatin. At the time of the exam the patient was lying in bed in no acute distress, currently stable on 2L NC. States she had been feeling well when she woke up yesterday, has been noticing increased swelling in the BL LE's over the past 2 weeks. Took her home meds as prescribed, including BID Bumex. Went to dinner at a [place] restaurant last night, started feeling significantly SOB after. Did not sleep last night due to progressive SOB/HOPPER. When asked if she normally tries to limit her sodium and fluid intake she responds "yes, but I do try to drink alot of water for my kidneys". I explained to her that most food from [employer] has lots of sodium and she responded, "that's what they told me this morning". Denies recent fever, chills, chest pain, cough, abd pain, nausea, vomiting, diarrhea, dysuria, hematuria, melena, and recent trauma. She is a full code and would want her daughter to make medical decisions for her if she cannot make them herself. Please refer to Dr. Tracey's attestation for any changes to the treatment plan Allergies Allergy/AdvReac Type Severity Reaction Status Date / Time spironolactone AdvReac Severe Hyperkalemi Verified 08/24/23 10:57 a sulfamethoxazole AdvReac Severe SEVERE Verified 08/24/23 10:57 [From Bactrim] VOMITING trimethoprim [From Bactrim] AdvReac Severe SEVERE Verified 08/24/23 10:57 VOMITING JESSICA Inhibitors AdvReac Intermediate ARF Verified 08/24/23 10:57 diclofenac AdvReac Intermediate ankle Verified 08/24/23 10:57 swelling iron AdvReac Intermediate nausea/ Verified 08/24/23 10:57 VOMITING Home Medications Medication Instructions Recorded Confirmed Type cyanocobalamin (vitamin B-12) 1,000 mcg PO QAM 12/28/17 09/09/23 History 1,000 mcg capsule magnesium oxide 400 mg PO BID 12/28/17 09/09/23 History omega 4-ekt-zgq-fish oil 1,000 mg 1 cap PO QPM 12/28/17 09/09/23 History (120 mg-180 mg) capsule (Fish Oil) fexofenadine 60 mg tablet (Gabby 60 mg PO DAILY PRN Allergy Symptoms 10/02/18 09/09/23 History Allergy) pen needle, diabetic 31 gauge x #30 ea 11/22/18 08/24/23 History 5/16" (BD Ultra-Fine Short Pen Needle) aspirin 81 mg tablet,delayed 81 mg PO QPM 07/15/20 09/09/23 History release epoetin jase 2,000 unit/mL 2,000 unit subcut .[id number] 12/02/20 09/09/23 History injection solution (Procrit) insulin aspart U-100 100 unit/mL See Rx Instructions subcut TID #60 08/16/21 09/09/23 Rx (3 mL) subcutaneous pen (Novolog mL FlexPen U-100 Insulin aspart) isosorbide mononitrate 30 mg 30 mg PO QAM #90 tabs 12/25/22 09/09/23 Rx tablet,extended release 24 hr isosorbide mononitrate 60 mg 60 mg PO QAM #90 tabs 12/25/22 09/09/23 Rx tablet,extended release 24 hr hydralazine 100 mg tablet 100 mg PO TID #270 tabs 12/28/22 09/09/23 Rx apixaban 2.5 mg tablet (Eliquis) 2.5 mg PO BID #180 tabs 01/29/23 09/09/23 Rx bumetanide 0.5 mg tablet 0.5 mg PO BID #120 tabs 05/15/23 09/09/23 Rx atorvastatin 40 mg tablet 40 mg PO HS #90 tabs 05/23/23 09/09/23 Rx cilostazol 100 mg tablet 100 mg PO BID #180 tabs 06/05/23 09/09/23 Rx diclofenac sodium 1 % topical gel 2 g topical QID PRN arthritic pain 06/12/23 09/09/23 Rx (Voltaren Arthritis Pain) #100 grams alendronate 70 mg tablet (Fosamax) 70 mg PO WK 06/13/23 09/09/23 History calcitriol 0.25 mcg capsule 0.25 mcg PO DAILY 06/13/23 09/09/23 History (Rocaltrol) insulin glargine 100 unit/mL (3 40 unit (0.4 mL) subcut HS #60 mL 06/13/23 09/09/23 Rx mL) subcutaneous pen (Lantus Solostar U-100 Insulin) metoprolol succinate 200 mg 200 mg PO BID #180 tabs 06/13/23 09/09/23 Rx tablet,extended release 24 hr hydrocodone 5 mg-acetaminophen 325 0.5 - 1 tab PO Q6H PRN pain #30 09/07/23 09/09/23 Rx mg tablet tabs gabapentin 100 mg capsule 100 mg PO TID 09/09/23 09/09/23 History Past Med/Surg History Medical History Paresthesia of right lower extremity Neuroforaminal stenosis of lumbosacral spine Lumbosacral spondylosis New onset a-fib Right knee DJD History of colon cancer 2020- adenocarcinoma Chronic anticoagulation Small bowel obstruction 2020 > after colon surgery Ileus Encounter for pre-operative examination Anemia Mild- has been evaluated by heme/onc for recent dx colon cancer Hx of breast cancer right breast (Jun 2018). surgical intervention + radiation therapy DVT (deep venous thrombosis) Right upper leg DVT -- March 2020 -- placed on eliquis.-NO ISSUES SINCE Recent u/s from 07/07/20= shows continued evidence of right common femoral DVT. Osteoporosis Lumbar spinal stenosis Edema Peripheral vascular disease Hypertension Hx of acute respiratory failure WITH GB SURG 04/21/09 [facility] POST OP RESPIRATORY FAILURE-HAD TO BE VENTILATED,EXTUBATED NEXT DAY-PER PT SLOW TO WAKE UP IN GENERAL Right breast partial mastectomy 08/29/18 under [place] with LMA #4 x 3 attempts- atraumatic with good seal- no other issues noted CAD (coronary artery disease) s/p 3 vessel CABG 2006 Osteoarthritis Venous stasis dermatitis LLE Chronic kidney disease STAGE 3-FOLLOWS WITH DR LIND Last seen by nephro 07/20/20- kidney function stable at that time Hyperlipidemia Surgical History Hx of colonoscopy Hx of lymph node excision right axillary History of left knee replacement Status post dilation and curettage 08/26/20 Dr. Cathy Calderon- Hysteroscopy, Dilation and Curettage, Possible Polypectomy S/P laparoscopic colectomy (08/26/20) Laparoscopic Extended Hemicolectomy, Extensive enterolysis - Sohail Quiroga DO History of esophagogastroduodenoscopy (EGD) S/P epidural steroid injection History of partial mastectomy of right breast no chemo, just radiation Status post trigger finger release X2 History of total knee replacement LEFT 2018 History of adverse response to anesthesia SLOW TO WAKE. PT HAD RESP FAILURE S/P KYLAH IN 2009 History of Moh's micrographic surgery for skin cancer S/P tendon repair R ARM History of cholecystectomy History of dilatation and curettage History of bilateral tubal ligation History of cataract surgery BL History of coronary artery bypass graft 3 VESSELS 2007-[facility] [place] History of cardiac cath 2006 NO STENTS-[facility] Family History Mother , age 38 heart disease due to rheumatic fever No problems noted. Father , age 73 heart disease No problems noted. Sister No problems noted. Sister No problems noted. Sister No problems noted. Sister No problems noted. Sister No problems noted. Daughter Myocardial infarction Breast cancer Family history of reaction to anesthesia SLOW TO WAKE UP/PONV Daughter Heart disease Other No family history of adverse response to anesthesia Denies family history of Ovarian cancer Prostate cancer Colorectal cancer Social History Smoking Status: Never smoker Second Hand Exposure: No; Do You Dip or Chew Tobacco: No; Hx Alcohol Use: Yes Alcohol type: wine Hx Substance Use: No Preferred Language: Irish Communication Ability: Effective Visual Impairment: Limited Hearing Ability: Normal [employer] Required: No Beliefs That Will Affect Care: None marital status: / Current Living Situation: Alone current occupational status: retired How many Children do You have: 2 Feels Safe at Home: Yes Childhood Exposure to Second-Hand Smoke: No Diet: low salt and regular caffeine: No during the past year weight has: remained stable Dental Care, Regularly: No Physical Activity Frequency: 3-4 Times per Week Seatbelt Use: always Sunscreen Use: Yes Do you think of yourself as: straight/heterosexual Gender Identity: Female Assistive Devices: Glasses and Walker Physical Exam 2 Physical Exam: Physical Exam: General: In no acute distress, stated age, chronically ill appearing but non- toxic HEENT: Normocephalic, atraumatic, no scleral icterus, pupils around round, symmetrical, and reactive to light, moist mucus membranes, +JVD, trachea midline, no thyromegaly Chest/Pulm: No respiratory distress, symmetrical chest expansion, decreased breath sounds in the BL lower lung mora with rales and crackles in the mid and upper lung mora Cardiac: irregular rate and rhythm, no murmurs noted Abdomen: Negative for ascites and bruising, normoactive bowel sounds, soft, non-tender to palpation throughout Musculoskeletal: Symmetrical and without signs of acute trauma, upper and lower extremities with full ROM, no atrophy, spasticity, or flaccidity Extremities: Radial, dorsalis pedis, and posterior tibial pulses are intact and symmetrical, BL LE's with symmetrical and significant venous stasis with clear drainage Skin: Patient with erythema and skin breakdown in the folds of the BL groin and abdomen consistent with fungal infection Neuro: Alert and oriented to person, place, month, year, and president, no focal defects, no tremors noted Psych: No acute distress, calm and cooperative during the exam Results & Data Results & Data Vital Signs (Past 12 Hours) Vital Signs Temp Pulse Pulse Resp BP BP Pulse Ox 09/09/23 09:00 75 28 H 96 09/09/23 09:00 162/56 H 09/09/23 08:30 81 27 H 96 09/09/23 08:30 177/90 H 09/09/23 08:01 77 18 96 09/09/23 08:00 158/86 H 09/09/23 08:00 77 25 H 178/63 H 96 09/09/23 07:59 75 32 H 96 09/09/23 07:34 79 31 H 96 09/09/23 07:34 178/63 H 09/09/23 07:30 84 27 H 95 09/09/23 07:00 79 38 H 96 09/09/23 06:45 76 35 H 95 09/09/23 06:30 80 24 97 09/09/23 06:15 80 29 H 97 09/09/23 06:14 80 09/09/23 06:10 84 32 H 96 09/09/23 06:04 37.1 C 84 32 H 198/97 H 96 09/09/23 06:04 96 09/09/23 06:04 37.1 C 84 32 H 198/97 H 92 09/09/23 06:00 89 33 H 90 09/09/23 05:51 198/97 H 09/09/23 05:48 83 37 H 100 09/09/23 05:45 85 24 99 O2 Del Method O2 Flow Rate 09/09/23 09:00 Nasal Cannula 2 09/09/23 09:00 09/09/23 08:30 09/09/23 08:30 09/09/23 08:01 09/09/23 08:00 09/09/23 08:00 Nasal Cannula 2 09/09/23 07:59 09/09/23 07:34 09/09/23 07:34 09/09/23 07:30 09/09/23 07:00 Nasal Cannula 2 09/09/23 06:45 09/09/23 06:30 09/09/23 06:15 09/09/23 06:14 09/09/23 06:10 Nasal Cannula 2 09/09/23 06:04 Nasal Cannula 2 09/09/23 06:04 Nasal Cannula 2 09/09/23 06:04 Room Air 09/09/23 06:00 09/09/23 05:51 09/09/23 05:48 09/09/23 05:45 Laboratory Results Abnormal lab results 09/09/23 09/09/23 Range/Units 07:17 09:30 RBC 2.63 L (4.20-5.40) M/uL Hgb 8.2 L (12.0-16.0) g/dl Hct 26.5 L (37.0-47.0) % MCV 100.8 H (80.0-100.0) fL MCHC 30.9 L (32.0-36.0) g/dL RDW Std Deviation 66.6 H (36.4-46.3) fL RDW Coeff of Kirsty 18.1 H (11.5-14.5) % Lymph # (Auto) 0.47 L (1.20-3.40) K/uL [place] # (Auto) 0.64 H (0.11-0.59) K/uL Chloride 108 H (98-107) mmol/L BUN 51 H (6-23) mg/dl Creatinine 2.57 H (0.6-1.2) mg/dl Glucose 175 H (70-99(Fasting)) mg/dl Calcium 8.3 L (8.6-10.3) mg/dl AST 46 H (13-39) U/L Troponin I High Sens 20.4 H 38.1 H D (0-14) pg/ml B-Natriuretic Peptide 1389 H (0-100) pg/ml Diagnostic Findings Chest X-Ray 09/09/23 06:07 XR chest 1V portable HISTORY: Dyspnea COMPARISON: Chest 08/15/2023. FINDINGS: No pneumothorax. There is a small left pleural effusion. The heart is mildly enlarged. There are poststernotomy changes. There is diffuse interstitial/vascular thickening which has progressed. This is consistent with mild pulmonary edema. No acute fractures. No new focal lung consolidations. Left basilar linear densities favor subsegmental atelectasis. IMPRESSION: Cardiomegaly with mild interstitial pulmonary edema and a small left pleural effusion. ACT 112: Negative or not required by law. Electronically signed by: Tulio Escobar M.D. 09/09/2023 7:50 AM ECG Additional Comments: Undetermined rhythm Left axis deviation Minimal voltage criteria for LVH, may be normal variant ( Max product ) Abnormal ECG When compared with ECG of 15-AUG-2023 15:17, Current undetermined rhythm precludes rhythm comparison, needs review Code Status & VTE Plan Code Status Full code VTE Prophylaxis Plan VTE Prophylaxis will be ordered: Yes PG Care Time/CCT Total # of Minutes Spent Total Time Spent with Patient: Total time spent is greater than 50% in coordination of care (as documented) at patient's floor/unit and/or counseling patient: Coding [place] [address] INT INP/OBS CARE 3/75MIN Patient Type Established History Comprehensive Exam Comprehensive Medical Decision Making High Complexity Diagnoses Volume overload E87.70 Hypoxia R09.02 Paroxysmal atrial fibrillation I48.0 Urinary retention R33.9 Elevated troponin R79.89 Swelling of both lower extremities M79.89 Fungal infection of skin of abdomen B36.9 Type 2 diabetes mellitus with diabetic neuropathy, with long-term current use of insulin E11.40; Z79.4 Diabetes mellitus complication detail: with unspecified neuropathy Essential hypertension I10 Hypertension type: essential hypertension (8) Type 2 diabetes mellitus with neurologic complication, with long-term current use of insulin Diabetes mellitus complication detail: with unspecified neuropathy Qualified Code(s): E11.40 - Type 2 diabetes mellitus with diabetic neuropathy, unspecified; Z79.4 - retirement (current) use of insulin (9) Hypertension Hypertension type: essential hypertension Qualified Code(s): I10 - Essential (primary) hypertension
[2023-09-09] MEDS ORDERED: CARBOHYDRATES FOR HYPOGLYCEMIA PO PRN (11:12)
[2023-09-09] MEDS ORDERED: DEXTROSE 50% 50 ML SYRINGE IV PRN (11:12)
[2023-09-09] MEDS ORDERED: GLUCOSE 40% GEL 15 GM TUBE PO PRN (11:12)
[2023-09-09] MEDS ORDERED: GLUCAGON FOR INJ 1 MG VIAL SQ PRN (11:12)
[2023-09-09] MEDS ORDERED: GLUCOSE 10 TAB/TUBE PO PRN (11:12)
--- NOTE | 2023-09-09 11:36 | CT Scan Report ---
ABDOMEN AND PELVIS CT WITHOUT CONTRAST CT DOSE: 1380.75 mGy.cm HISTORY: Urinary retention, CKD, volume overload TECHNIQUE: Multiaxial CT images of the abdomen and pelvis were performed without contrast. A dose lo wering technique was utilized adhering to the principles of ALARA. COMPARISON STUDY: Abdomen and pelvis CT 04/17/2023. FINDINGS: Small bilateral pleural effusions with mild interlobular septal thickening and faint ground glass densities the lung bases. This is consistent with pulmonary edema. The heart is mildly enlarged . No pneumoperitoneum. No pneumatosis. No acute fractures. There is a small hernia within the right u pper abdominal wall containing a knuckle of large bowel. There is also a small supraumbilical fat-con taining hernia. Mild body wall edema is noted. The unenhanced liver, spleen and adrenal glands unrema rkable. There are few small hypodense pancreatic lesions, unchanged. These favor small cystic lesions of the pancreas and of doubtful clinical significance. Bilateral renal lesions remain stable and fav or cysts. There is moderate cortical atrophy, unchanged. There is a punctate stone within the left ki dney, unchanged. No hydronephrosis. Calcified plaque within the normal caliber abdominal aorta. There is a small gallbladder remnant noted. This remains unchanged. No retroperitoneal or pelvic lymphaden opathy. No pelvic free fluid. The bladder is decompressed by Jacques catheter. This likely accounts for the gas within the bladder lumen. Endometrial thickening, unchanged. Suboptimal evaluation for bowel pathology due to the lack of intravenous and oral contrast. However, there is no definite bowel wall thickening or obstruction. Prior right hemicolectomy. Colonic diverticulosis. No evidence for acute diverticulitis. IMPRESSION: 1. Cardiomegaly with small bilateral pleural effusions and mild pulmonary edema. 2. No bowel wall thickening or obstruction. 3. Moderate cortical renal atrophy, unchanged. 4. Stable left-sided nephrolithiasis. No hydronephrosis. 5. Colonic diverticulosis. No evidence for acute diverticulitis. 6. No change in the endometrial thickening. 7. Additional findings as described above. ACT 112: Negative or not required by law. Electronically signed by: Tulio Escobar M.D. 09/09/2023 11:34 AM
[2023-09-09 11:38] LABS: Appearance Urine Clear (Clear); Bacteria Urine Automated None Seen (None Seen); Bilirubin Urine Negative (Negative); Blood Urine Negative (Negative); Cast Urine Automated 0-2 /lpf (0-2); Color Urine Yellow; Epithelial Cell Urine Auto 0-2 /hpf (0-2); Glucose Urine UA Negative (Negative); Ketones Urine Negative (Negative); Leukocyte Esterase Urine Negative (Negative); Nitrite Urine Negative (Negative); Protein Urine Trace (Negative); RBC Urine Automated 0-2 /hpf (0-2); Specific Gravity Urine 1.015 (1.000-1.030); Urobilinogen Urine Negative (Negative); WBC Urine Automated 0-5 /hpf (0-5); pH Urine 5.5 (4.5-7.5)
[2023-09-09 12:22] LABS: Creatinine Urine Random 65.9 mg/dl; Protein Creatinine Ratio Urine 0.4 (0-0.2); Total Protein Urine Random 24.2 mg/dl (0-11.9)
--- NOTE | 2023-09-09 12:27 | Urology Consultation ---
Date of Consultation September 09, 2023 Assessment & Plan (1) Urinary retention: Urinary retention currently managed with Jacques catheter in place. Underlying cause is somewhat unclear at this time. Would recommend maintaining Jacques catheter for couple days to allow bladder rest as she diureses. Would recommend a bowel regimen to help prevent any constipation. Low suspicion for UTI, would hold off antibiotics from the urology perspective for now. Would consider voiding trial in 5 to 7 days. This can be coordinated at the urology office if she is discharged before then. We can evaluate further if needed with urodynamics as an outpatient. History of Present Illness Reason for Consultation: Urinary retention Attending Physician: Tom Tracey MD History of Present Illness This is an 83-year-old female who presented to the emergency department on 09/09/2023 with progressive shortness of breath over the course of 12 hours. Preceding this, she had noticed worsening lower extremity edema. Upon arrival she was noted to be tachypneic, hypertensive and was started on oxygen by nasal cannula. She was given IV Bumex, but was unable to void. Bladder scan demonstrated 690 cc and a Jacques catheter was placed. Urology was consulted for urinary retention. She denies any prior history of urinary retention. She is followed by nephrology for chronic kidney disease and has never been told anything about incomplete emptying. She denies any recent trauma. She denies any hematuria. She had some pressure when her bladder was full, but this feels much better now. She does occasionally have constipation, and has been recently taking pain medications which may exacerbate this. She reports a history of spinal stenosis, but denies any paresthesias/numbness/tingling/weakness of the lower extremities or saddle area Labs in the ED were notable for no leukocytosis (WBC 6.32), creatinine elevated at 2.57, although this looks to be close to her recent baseline. Elevated glucose at 175. She had a CT scan of the abdomen and pelvis performed on 09/09/2023. I independently reviewed these images. Both kidneys are in normal position and are atrophic. She has some likely cysts bilaterally, although these are incompletely evaluated due to lack of contrast. There are small, nonobstructing stones in the left kidney. I do not appreciate any hydronephrosis bilaterally. Bladder is decompressed with a Jacques catheter in place with small foci of air, likely related to the catheter. Allergies Allergy/AdvReac Type Severity Reaction Status Date / Time spironolactone AdvReac Severe Hyperkalemi Verified 08/24/23 10:57 a sulfamethoxazole AdvReac Severe SEVERE Verified 08/24/23 10:57 [From Bactrim] VOMITING trimethoprim [From Bactrim] AdvReac Severe SEVERE Verified 08/24/23 10:57 VOMITING JESSICA Inhibitors AdvReac Intermediate ARF Verified 08/24/23 10:57 diclofenac AdvReac Intermediate ankle Verified 08/24/23 10:57 swelling iron AdvReac Intermediate nausea/ Verified 08/24/23 10:57 VOMITING Home Medications Medication Instructions Recorded Confirmed Type cyanocobalamin (vitamin B-12) 1,000 mcg PO QAM 12/28/17 09/09/23 History 1,000 mcg capsule magnesium oxide 400 mg PO BID 12/28/17 09/09/23 History omega 0-nlw-plt-fish oil 1,000 mg 1 cap PO QPM 12/28/17 09/09/23 History (120 mg-180 mg) capsule (Fish Oil) fexofenadine 60 mg tablet (Gabby 60 mg PO DAILY PRN Allergy Symptoms 10/02/18 09/09/23 History Allergy) pen needle, diabetic 31 gauge x #30 ea 11/22/18 08/24/23 History 5/16" (BD Ultra-Fine Short Pen Needle) aspirin 81 mg tablet,delayed 81 mg PO QPM 07/15/20 09/09/23 History release epoetin jase 2,000 unit/mL 2,000 unit subcut .[id number] 12/02/20 09/09/23 History injection solution (Procrit) insulin aspart U-100 100 unit/mL See Rx Instructions subcut TID #60 08/16/21 09/09/23 Rx (3 mL) subcutaneous pen (Novolog mL FlexPen U-100 Insulin aspart) isosorbide mononitrate 30 mg 30 mg PO QAM #90 tabs 12/25/22 09/09/23 Rx tablet,extended release 24 hr isosorbide mononitrate 60 mg 60 mg PO QAM #90 tabs 12/25/22 09/09/23 Rx tablet,extended release 24 hr hydralazine 100 mg tablet 100 mg PO TID #270 tabs 12/28/22 09/09/23 Rx apixaban 2.5 mg tablet (Eliquis) 2.5 mg PO BID #180 tabs 01/29/23 09/09/23 Rx bumetanide 0.5 mg tablet 0.5 mg PO BID #120 tabs 05/15/23 09/09/23 Rx atorvastatin 40 mg tablet 40 mg PO HS #90 tabs 05/23/23 09/09/23 Rx cilostazol 100 mg tablet 100 mg PO BID #180 tabs 06/05/23 09/09/23 Rx diclofenac sodium 1 % topical gel 2 g topical QID PRN arthritic pain 06/12/23 09/09/23 Rx (Voltaren Arthritis Pain) #100 grams alendronate 70 mg tablet (Fosamax) 70 mg PO WK 06/13/23 09/09/23 History calcitriol 0.25 mcg capsule 0.25 mcg PO DAILY 06/13/23 09/09/23 History (Rocaltrol) insulin glargine 100 unit/mL (3 40 unit (0.4 mL) subcut HS #60 mL 06/13/23 09/09/23 Rx mL) subcutaneous pen (Lantus Solostar U-100 Insulin) metoprolol succinate 200 mg 200 mg PO BID #180 tabs 06/13/23 09/09/23 Rx tablet,extended release 24 hr hydrocodone 5 mg-acetaminophen 325 0.5 - 1 tab PO Q6H PRN pain #30 09/07/23 Rx mg tablet tabs gabapentin 100 mg capsule 100 mg PO TID 09/09/23 09/09/23 History Patient History Medical History Paresthesia of right lower extremity Neuroforaminal stenosis of lumbosacral spine Lumbosacral spondylosis New onset a-fib Right knee DJD History of colon cancer 2020- adenocarcinoma Chronic anticoagulation Small bowel obstruction 2020 > after colon surgery Ileus Encounter for pre-operative examination Anemia Mild- has been evaluated by heme/onc for recent dx colon cancer Hx of breast cancer right breast (Jun 2018). surgical intervention + radiation therapy DVT (deep venous thrombosis) Right upper leg DVT -- March 2020 -- placed on eliquis.-NO ISSUES SINCE Recent u/s from 07/07/20= shows continued evidence of right common femoral DVT. Osteoporosis Lumbar spinal stenosis Edema Peripheral vascular disease Hypertension Hx of acute respiratory failure WITH GB SURG 04/21/09 [facility] POST OP RESPIRATORY FAILURE-HAD TO BE VENTILATED,EXTUBATED NEXT DAY-PER PT SLOW TO WAKE UP IN GENERAL Right breast partial mastectomy 08/29/18 under [place] with LMA #4 x 3 attempts- atraumatic with good seal- no other issues noted CAD (coronary artery disease) s/p 3 vessel CABG 2006 Osteoarthritis Venous stasis dermatitis LLE Chronic kidney disease STAGE 3-FOLLOWS WITH DR LIND Last seen by nephro 07/20/20- kidney function stable at that time Hyperlipidemia Surgical History Hx of colonoscopy Hx of lymph node excision right axillary History of left knee replacement Status post dilation and curettage 08/26/20 Dr. Cathy Calderon- Hysteroscopy, Dilation and Curettage, Possible Polypectomy S/P laparoscopic colectomy (08/26/20) Laparoscopic Extended Hemicolectomy, Extensive enterolysis - Sohail Quiroga, DO History of esophagogastroduodenoscopy (EGD) S/P epidural steroid injection History of partial mastectomy of right breast no chemo, just radiation Status post trigger finger release X2 History of total knee replacement LEFT 2017 History of adverse response to anesthesia SLOW TO WAKE. PT HAD RESP FAILURE S/P KYLAH IN 2008 History of Moh's micrographic surgery for skin cancer S/P tendon repair R ARM History of cholecystectomy History of dilatation and curettage History of bilateral tubal ligation History of cataract surgery BL History of coronary artery bypass graft 3 VESSELS 2006-[facility] [place] History of cardiac cath 2006 NO STENTS-[facility] Family History Mother , age 38 heart disease due to rheumatic fever No problems noted. Father , age 73 heart disease No problems noted. Sister No problems noted. Sister No problems noted. Sister No problems noted. Sister No problems noted. Sister No problems noted. 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 Beliefs That Will Affect Care: None marital status: / Current Living Situation: Alone current occupational status: retired How many Children do You have: 2 Feels Safe at Home: Yes Childhood Exposure to Second-Hand Smoke: No Diet: low salt and regular caffeine: No during the past year weight has: remained stable Dental Care, Regularly: No Physical Activity Frequency: 3-4 Times per Week Seatbelt Use: always Sunscreen Use: Yes Do you think of yourself as: straight/heterosexual Gender Identity: Female Assistive Devices: Glasses and Walker Review of Systems Review of Systems: 12 point review of systems negative exce pt for otherwise indicated. Physical Exam Constitutional: well developed and well nourished; no acute distress Eyes: + anicteric sclerae; pupils not irregula r Respiratory: Nasal cannula in place Cardiovascular: well perfused Gastrointestinal (Abdomen): Inspection/Auscultation: abdomen normal to inspection; abdomen not distended Musculoskeletal: Extremities: extremities normal to inspection Skin: normal turgor; no rashes and no lesions Neurologic: moves all extremities and awake Psychiatric: Orientation: alert and oriented x 3 Genitourinary: Jacques catheter draining clear yellow urine Results & Data Vital Signs (Past 12 Hours) Vital Signs Temp Pulse Pulse Resp BP BP Pulse Ox 09/09/23 11:30 09/09/23 09:00 75 28 H 96 09/09/23 09:00 162/56 H 09/09/23 08:30 81 27 H 96 09/09/23 08:30 177/90 H 09/09/23 08:01 77 18 96 09/09/23 08:00 158/86 H 09/09/23 08:00 77 25 H 178/63 H 96 09/09/23 07:59 75 32 H 96 09/09/23 07:34 79 31 H 96 09/09/23 07:34 178/63 H 09/09/23 07:30 84 27 H 95 09/09/23 07:00 79 38 H 96 09/09/23 06:45 76 35 H 95 09/09/23 06:30 80 24 97 09/09/23 06:15 80 29 H 97 09/09/23 06:14 80 09/09/23 06:10 84 32 H 96 09/09/23 06:04 37.1 C 84 32 H 198/97 H 96 09/09/23 06:04 96 09/09/23 06:04 37.1 C 84 32 H 198/97 H 92 09/09/23 06:00 89 33 H 90 09/09/23 05:51 198/97 H 09/09/23 05:48 83 37 H 100 09/09/23 05:45 85 24 99 O2 Del Method O2 Flow Rate 09/09/23 11:30 Room Air 09/09/23 09:00 Nasal Cannula 2 09/09/23 09:00 09/09/23 08:30 09/09/23 08:30 09/09/23 08:01 09/09/23 08:00 09/09/23 08:00 Nasal Cannula 2 09/09/23 07:59 09/09/23 07:34 09/09/23 07:34 09/09/23 07:30 09/09/23 07:00 Nasal Cannula 2 09/09/23 06:45 09/09/23 06:30 09/09/23 06:15 09/09/23 06:14 09/09/23 06:10 Nasal Cannula 2 09/09/23 06:04 Nasal Cannula 2 09/09/23 06:04 Nasal Cannula 2 09/09/23 06:04 Room Air 09/09/23 06:00 09/09/23 05:51 09/09/23 05:48 09/09/23 05:45 PG Care Time/CCT Total # of Minutes Spent Total Time Spent with Patient: Total time spent is greater than 50% in coordination of care (as documented) at patient's floor/unit and/or counseling patient: Coding Level of Care Code 45113 INT INP/OBS CARE 2/55MIN Diagnoses Urinary retention R33.9
[2023-09-09] MEDS: hydrALAZINE TAB 50 MG TAB PO STA (12:47)
[2023-09-09] MEDS: APIXABAN 2.5 MG TAB PO STA (12:48)
[2023-09-09] MEDS: NYSTATIN POWDER 15GM BTL EXT SCH (14:03)
[2023-09-09] MEDS: INSULIN ASPART PER UNIT CHARGE SC SCH (14:44)
[2023-09-09] MEDS: BUMETANIDE 0.5 MG in SYRINGE 0 ML IV SCH (17:23)
[2023-09-09] MEDS: hydrALAZINE TAB 50 MG TAB PO SCH (20:31)
[2023-09-09] MEDS: METOPROLOL SUCC 50MG EXT REL TAB PO SCH (20:32)
[2023-09-09] MEDS: cilostazoL 100 MG TAB PO SCH (20:32)
[2023-09-09] MEDS: MAGNESIUM OXIDE 400 MG TAB PO SCH (20:32)
[2023-09-09] MEDS: GABAPENTIN 100 MG CAP PO SCH (20:33)
[2023-09-09] MEDS: ASPIRIN 81 MG ECTAB PO SCH (20:33)
[2023-09-09] MEDS: ATORVASTATIN 40 MG TAB PO SCH (20:34)
[2023-09-09] MEDS: APIXABAN 2.5 MG TAB PO SCH (20:34)
[2023-09-09] MEDS: LANTUS PER UNIT CHARGE SQ SCH (20:45)
--- NOTE | 2023-09-09 22:57 | Electrocardiogram Report ---
Test Reason : Blood Pressure : / mmHG Vent. Rate : 089 BPM Atrial Rate : 077 BPM P-R Int : 000 ms QRS Dur : 110 ms QT Int : 376 ms P-R-T Axes : 000 -37 039 degrees QTc Int : 457 ms Sinus rhythm with PVCs' Premature atrial complexes Left axis deviation Minimal voltage criteria for LVH, may be normal variant ( Max product ) Abnormal ECG When compared with ECG of 15-AUG-2023 15:17, No significant change Confirmed by Irvin Barrera ([id number]) on 09/09/2023 10:56:24 PM Referred By: REFERRED SELF Confirmed By:Irvin Barrera
[2023-09-10] MEDS: ACETAMINOPHEN 325 MG TAB PO PRN (03:48)
[2023-09-10] MEDS: hydrALAZINE HCL 20 MG/ML VIAL IV STA (04:19)
[2023-09-10 04:24] LABS: Basophils # (auto) 0.01 K/uL (0.00-0.20); Basophils % (auto) 0.1 %; Eosinophils # (auto) 0.09 K/uL (0.00-0.50); Eosinophils % (auto) 1.3 %; Hematocrit (blood only) 28.8 % (37.0-47.0); Hemoglobin 8.9 g/dl (12.0-16.0); Immature Granulocytes # (auto) 0.02 K/uL (0.01-0.20); Immature Granulocytes % (auto) 0.3 %; Lymphocytes # (auto) 0.48 K/uL (1.20-3.40); Lymphocytes % (auto) 6.9 %; Mean Corpuscular Hemoglobin 31.8 pg (25.0-34.0); Mean Corpuscular Hgb Conc 30.9 g/dL (32.0-36.0); Mean Corpuscular Volume 102.9 fL (80.0-100.0); Mean Platelet Volume 10.3 fL (9.4-12.4); Monocytes % (auto) 11.5 %; Neutrophils # (auto) 5.55 K/uL (1.40-6.50); Neutrophils % (auto) 79.9 %; Platelet Count 227 K/uL (130-400); RDW Coefficient of Variation 18.3 % (11.5-14.5); RDW Standard Deviation 68.8 fL (36.4-46.3); Reticulocyte % 3.66 % (0.50-2.00); White Blood Count 6.95 K/ul (4.8-10.8)
[2023-09-10 04:29] LABS: Prothrombin Time 10.9 Seconds (9.0-12.0)
[2023-09-10 04:38] LABS: BUN Creatinine Ratio 21.3 (10-20); Calcium 8.7 mg/dl (8.6-10.3); Creatinine Clr Calc Pharmacy 21.6 ml/min; Est GFR (African American) 23.3 ml/min; Est GFR (Non-African American) 20.1 ml/min; Potassium 3.9 mmol/L (3.5-5.1)
[2023-09-10 05:23] LABS: Ferritin 37.4 ng/ml (8-388); Troponin I High Sensitivity 83.4 pg/ml (0-14)
[2023-09-10] MEDS: ALENDRONATE SODIUM 70 MG TAB PO SCH (05:50)
[2023-09-10 06:03] LABS: Folate (Folic Acid),Ser orPlas 10.33 ng/ml (>5.38)
[2023-09-10 06:04] LABS: Vitamin B12 > 1500 pg/ml (180-914)
[2023-09-10] MEDS: KETOROLAC TROMETHAMINE 15 MG/ML VIAL IV STA (06:09)
[2023-09-10] MEDS: ISOSORBIDE MONO EXTENDED REL 30 MG TABCR PO SCH (09:06)
[2023-09-10] MEDS: CALCITRIOL 0.25 MCG CAPSULE PO SCH (09:07)
--- NOTE | 2023-09-10 14:30 | Hospitalist Progress Note ---
Date of Service September 10, 2023 Assessment & Plan (1) Volume overload: Plan: Patient was clearly admitted with pulmonary edema BNP 1300 Chest x-ray showing pulmonary edema Responding to IV diuretics Will continue Bumex 0.5 mg IV twice daily Will continue Jacques catheter for now. Kidney function tolerating Creatinine today 2.2, down from 2.5 Most likely related to dietary noncompliance (2) Hypoxia: Plan: -Patient has been requiring 1-2L NC since arrival -Not on home O2, denies previous hx of KITA -Likely due to volume overload -In no respiratory distress -Continue treatment per Volume overload plan -Incentive spirometry, flutter therapy, Prn O2 to keep SpO2 between 92-95% (3) Paroxysmal atrial fibrillation: Plan: -Currently stable -Continue Eliquis and metoprolol (4) Urinary retention: Plan: Continue Jacques catheter for now Urology on board CT abdomen pelvis reviewed -Continue IV diuresis -Will need voiding trial in 5 to 7 days, per urology Follow-up with urology outpatient Treat constipation per urology recommendation (5) Elevated troponin: Plan: -Initial high sen trop elevated at 29-->38 on 2 hour repeat -Denies chest discomfort -No acute ST segment or T-wave changes on ECG -Likely due to demand ischemia from volume overload and hypoxia -Continue to monitor on tele (6) Swelling of both lower extremities: Plan: -Patient noted to have significant, symmetrical BL LE venous stasis with clear drainage -No signs of infection -Now S/P BL JESSICA wraps placed by nursing staff at time of admission -Continue with jessica wraps and care per volume overload -Wound care nurse on board (7) Fungal infection of skin of abdomen: Plan: -Noted to have erythema and skin breakdown in the folds of the BL groin and abdomen consistent with fungal infection -S/P Nystatin powder in the ED -Will continue with TID scheduled nystatin powder for now -Wound care nurse consult (8) Type 2 diabetes mellitus with neurologic complication, with long-term current use of insulin: Plan: -Monitor BSG ACHS, goal is 110-160 -Normally takes 40 units HS lantus -Will convert to 20 units BID for now -Start CF 50 and CR 15 -Adjust regimen as needed (9) Hypertension: Plan: -Initially hypertensive with systolics in the 200's on arrival -Currently fairly stable after 1mg IV bumex and 0.5 inches nitro paste -Did not have am antihypertensives -Continue Hydralazine, Imdur, and IV diuresis Admission and Anticipated Discharge Date Admission Date: September 09, 2023 Subjective Patient feels better overall. Breathing better. Still using 2 L of oxygen. She uses not at home. Review of Systems Review of Systems: All systems reviewed & are unremarkable except as noted in Subjective Physical Exam Physical Exam: General: Awake, conversant Heart: S1, S2/regular rate and rhythm, no murmur rubs or gallops Lungs: Bibasilar crackles. Normal effort Abdomen: Soft/nontender/nondistended. No hepatosplenomegaly Extremities: No clubbing/cyanosis. Bilateral leg swelling 1+ pitting edema Behavior: Appropriate, cooperative Results & Data Results & Data Vital Signs (Past 12 Hours) Vital Signs Temp Pulse Pulse Resp BP Pulse Ox O2 Del Method 09/10/23 12:06 36.7 C 79 20 161/61 H 93 Nasal Cannula 09/10/23 08:29 72 09/10/23 07:38 37.5 C 79 16 147/55 H 91 Nasal Cannula O2 Flow Rate 09/10/23 12:06 2 09/10/23 08:29 09/10/23 07:38 2 Laboratory Results Abnormal lab results 09/09/23 09/09/23 09/09/23 Range/Units 16:33 17:42 20:38 RBC (4.20-5.40) M/uL Hgb (12.0-16.0) g/dl Hct (37.0-47.0) % MCV (80.0-100.0) fL MCHC (32.0-36.0) g/dL RDW Std Deviation (36.4-46.3) fL RDW Coeff of Kirsty (11.5-14.5) % Reticulocyte % (Auto) (0.50-2.00) % Lymph # (Auto) (1.20-3.40) K/uL [place] # (Auto) (0.11-0.59) K/uL BUN (6-23) mg/dl Creatinine (0.6-1.2) mg/dl BUN/Creatinine Ratio (10-20) POC Glucose 114 H 114 H (70-99) mg/dl Iron (35-150) mcg/dl Transferrin % Sat (15-50) % Troponin I High Sens 76.8 H* D (0-14) pg/ml Vitamin B12 (180-914) pg/ml 09/09/23 09/10/23 09/10/23 Range/Units 21:20 03:50 12:18 RBC 2.80 L (4.20-5.40) M/uL Hgb 8.9 L (12.0-16.0) g/dl Hct 28.8 L (37.0-47.0) % MCV 102.9 H (80.0-100.0) fL MCHC 30.9 L (32.0-36.0) g/dL RDW Std Deviation 68.8 H (36.4-46.3) fL RDW Coeff of Kirsty 18.3 H (11.5-14.5) % Reticulocyte % (Auto) 3.66 H (0.50-2.00) % Lymph # (Auto) 0.48 L (1.20-3.40) K/uL [place] # (Auto) 0.80 H (0.11-0.59) K/uL BUN 47 H (6-23) mg/dl Creatinine 2.21 H D (0.6-1.2) mg/dl BUN/Creatinine Ratio 21.3 H (10-20) POC Glucose 104 H (70-99) mg/dl Iron 32 L (35-150) mcg/dl Transferrin % Sat 11 L (15-50) % Troponin I High Sens 72.5 H* 83.4 H* D (0-14) pg/ml Vitamin B12 > 1500 H (180-914) pg/ml PG Care Time/CCT Total # of Minutes Spent Total Time Spent with Patient: Total time spent is greater than 50% in coordination of care (as documented) at patient's floor/unit and/or counseling patient: Coding Level of Care Code 74176 SUB INP/OBS CARE 2/35MIN Diagnoses Volume overload E87.70 Hypoxia R09.02 Paroxysmal atrial fibrillation I48.0 Urinary retention R33.9 Elevated troponin R79.89 Swelling of both lower extremities M79.89 Fungal infection of skin of abdomen B36.9 Type 2 diabetes mellitus with diabetic neuropathy, with long-term current use of insulin E11.40; Z79.4 Diabetes mellitus complication detail: with unspecified neuropathy Essential hypertension I10 Hypertension type: essential hypertension (8) Type 2 diabetes mellitus with neurologic complication, with long-term current use of insulin Diabetes mellitus complication detail: with unspecified neuropathy Qualified Code(s): E11.40 - Type 2 diabetes mellitus with diabetic neuropathy, unspecified; 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
[2023-09-10] MEDS: DOCUSATE SODIUM 100 MG CAP PO SCH (21:28)
[2023-09-10] MEDS: EUCERIN CR 120 GM JAR EXT SCH (21:30)
[2023-09-11 07:19] LABS: Basophils # (auto) 0.02 K/uL (0.00-0.20); Basophils % (auto) 0.4 %; Eosinophils # (auto) 0.16 K/uL (0.00-0.50); Eosinophils % (auto) 3.3 %; Hematocrit (blood only) 26.9 % (37.0-47.0); Hemoglobin 8.1 g/dl (12.0-16.0); Immature Granulocytes # (auto) 0.03 K/uL (0.01-0.20); Immature Granulocytes % (auto) 0.6 %; Lymphocytes % (auto) 10.4 %; Mean Corpuscular Hgb Conc 30.1 g/dL (32.0-36.0); Mean Corpuscular Volume 103.1 fL (80.0-100.0); Mean Platelet Volume 10.6 fL (9.4-12.4); Monocytes # (auto) 0.69 K/uL (0.11-0.59); Monocytes % (auto) 14.3 %; Neutrophils # (auto) 3.43 K/uL (1.40-6.50); Platelet Count 189 K/uL (130-400); RDW Coefficient of Variation 18.3 % (11.5-14.5); RDW Standard Deviation 68.6 fL (36.4-46.3); Red Blood Count 2.61 M/uL (4.20-5.40); White Blood Count 4.83 K/ul (4.8-10.8)
[2023-09-11 07:27] LABS: Prothrombin Time 10.9 Seconds (9.0-12.0)
[2023-09-11 07:38] LABS: BUN Creatinine Ratio 22.2 (10-20); Calcium 8.1 mg/dl (8.6-10.3); Creatinine Clr Calc Pharmacy 20.2 ml/min; Est GFR (African American) 21.2 ml/min; Est GFR (Non-African American) 18.3 ml/min; Magnesium 2.1 mg/dl (1.7-2.4)
--- NOTE | 2023-09-11 14:34 | Hospitalist Progress Note ---
Date of Service September 11, 2023 Assessment & Plan (1) Volume overload: Plan: Patient has acute on chronic diastolic congestive heart failure Acute CHFpEF Patient was clearly admitted with pulmonary edema BNP 1300 Chest x-ray showing pulmonary edema Responded to IV diuretics Discontinued IV Bumex as patient appears euvolemic today Switch to p.o. Bumex home dose Will continue Jacques catheter for now. Kidney function tolerating Creatinine today 2.3, down from 2.5 on admission Most likely related to dietary noncompliance (2) Hypoxia: Plan: -Patient had been requiring 1-2L NC since arrival -Not on home O2, denies previous hx of KITA After treatment with diuretics, oxygen requirements improved. She is now on room air. -Likely due to volume overload -In no respiratory distress -Continue treatment per Volume overload plan -Incentive spirometry, flutter therapy, Prn O2 to keep SpO2 between 92-95% (3) Paroxysmal atrial fibrillation: Plan: -Currently stable -Continue Eliquis and metoprolol (4) Urinary retention: Plan: Continue Jacques catheter for now Urology on board CT abdomen pelvis reviewed -Switch from IV to p.o. Bumex -Will need voiding trial in 5 to 7 days, per urology Follow-up with urology outpatient Treat constipation per urology recommendation (5) Elevated troponin: Plan: -Initial high sen trop elevated at 29-->38 on 2 hour repeat -Denies chest discomfort -No acute ST segment or T-wave changes on ECG -Likely due to demand ischemia from volume overload and hypoxia -Continue to monitor on tele (6) Swelling of both lower extremities: Plan: -Patient noted to have significant, symmetrical BL LE venous stasis with clear drainage -No signs of infection -Now S/P BL JESSICA wraps placed by nursing staff at time of admission -Continue with jessica wraps and care per volume overload -Wound care nurse on board (7) Fungal infection of skin of abdomen: Plan: -Noted to have erythema and skin breakdown in the folds of the BL groin and abdomen consistent with fungal infection -S/P Nystatin powder in the ED -Will continue with TID scheduled nystatin powder for now -Wound care nurse consult (8) Type 2 diabetes mellitus with neurologic complication, with long-term current use of insulin: Plan: -Monitor BSG ACHS, goal is 110-160 -Normally takes 40 units HS lantus -Will convert to 20 units BID for now -Start CF 50 and CR 15 -Adjust regimen as needed (9) Hypertension: Plan: -Initially hypertensive with systolics in the 200's on arrival -Currently fairly stable If blood pressure stays elevated on current regimen, may add amlodipine -Continue Hydralazine, Imdur, and p.o. Bumex Plan Consulted PT and OT Likely discharge tomorrow 09/11 Admission and Anticipated Discharge Date Admission Date: September 09, 2023 Subjective Patient feels well. Denies chest pain or shortness of breath. Physical Exam Physical Exam: General: Awake, conversant Heart: S1, S2/regular rate and rhythm, no murmur rubs or gallops Lungs: Bibasilar crackles. Normal effort Abdomen: Soft/nontender/nondistended. No hepatosplenomegaly Extremities: No clubbing/cyanosis. Bilateral leg swelling 1+ pitting edema Behavior: Appropriate, cooperative Results & Data Results & Data Vital Signs (Past 12 Hours) Vital Signs Temp Pulse Pulse Resp BP Pulse Ox O2 Del Method 09/11/23 11:13 37.1 C 74 16 146/53 H 94 Room Air 09/11/23 08:30 Nasal Cannula 09/11/23 08:16 66 09/11/23 07:53 36.7 C 72 16 188/64 H 100 Nasal Cannula O2 Flow Rate 09/11/23 11:13 09/11/23 08:30 2 09/11/23 08:16 09/11/23 07:53 2 PG Care Time/CCT Total # of Minutes Spent Total Time Spent with Patient: Total time spent is greater than 50% in coordination of care (as documented) at patient's floor/unit and/or counseling patient: Coding Level of Care Code 39747 SUB INP/OBS CARE 2/35MIN Diagnoses Volume overload E87.70 Hypoxia R09.02 Paroxysmal atrial fibrillation I48.0 Urinary retention R33.9 Elevated troponin R79.89 Swelling of both lower extremities M79.89 Fungal infection of skin of abdomen B36.9 Type 2 diabetes mellitus with diabetic neuropathy, with long-term current use of insulin E11.40; Z79.4 Diabetes mellitus complication detail: with unspecified neuropathy Essential hypertension I10 Hypertension type: essential hypertension (8) Type 2 diabetes mellitus with neurologic complication, with long-term current use of insulin Diabetes mellitus complication detail: with unspecified neuropathy Qualified Code(s): E11.40 - Type 2 diabetes mellitus with diabetic neuropathy, unspecified; 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
[2023-09-11] MEDS: BUMETANIDE 1 MG TAB PO SCH (22:15)
[2023-09-11] MEDS: LANTUS PER UNIT CHARGE SQ SCH (22:37)
[2023-09-12 07:31] LABS: Basophils # (auto) 0.01 K/uL (0.00-0.20); Basophils % (auto) 0.2 %; Eosinophils # (auto) 0.14 K/uL (0.00-0.50); Eosinophils % (auto) 2.7 %; Hematocrit (blood only) 25.3 % (37.0-47.0); Hemoglobin 7.7 g/dl (12.0-16.0); Immature Granulocytes # (auto) 0.02 K/uL (0.01-0.20); Immature Granulocytes % (auto) 0.4 %; Lymphocytes # (auto) 0.34 K/uL (1.20-3.40); Lymphocytes % (auto) 6.5 %; Mean Corpuscular Hemoglobin 31.2 pg (25.0-34.0); Mean Corpuscular Hgb Conc 30.4 g/dL (32.0-36.0); Mean Corpuscular Volume 102.4 fL (80.0-100.0); Mean Platelet Volume 10.3 fL (9.4-12.4); Monocytes # (auto) 0.75 K/uL (0.11-0.59); Monocytes % (auto) 14.2 %; Neutrophils # (auto) 4.01 K/uL (1.40-6.50); Platelet Count 192 K/uL (130-400); RDW Coefficient of Variation 17.8 % (11.5-14.5); Red Blood Count 2.47 M/uL (4.20-5.40); White Blood Count 5.27 K/ul (4.8-10.8)
[2023-09-12 07:35] LABS: Prothrombin Time 10.8 Seconds (9.0-12.0)
[2023-09-12 07:49] LABS: Anisocytosis Present
[2023-09-12 08:05] LABS: BUN Creatinine Ratio 21.7 (10-20); Calcium 7.9 mg/dl (8.6-10.3); Creatinine Clr Calc Pharmacy 19.3 ml/min; Est GFR (African American) 19.7 ml/min; Potassium 3.5 mmol/L (3.5-5.1)
[2023-09-12 11:07] LABS: Adenovirus F 40/41 PCR Not Detected (NotDetected); Astrovirus PCR Not Detected (NotDetected); Campylobacter PCR Not Detected (NotDetected); Cryptosporidium PCR Not Detected (NotDetected); Cyclospora cayetanensis PCR Not Detected (NotDetected); Entamoeba histolytica PCR Not Detected (NotDetected); Enteroaggregative E.coli(EAEC) Not Detected (NotDetected); Enteropathogenic E.coli (EPEC) Not Detected (NotDetected); Enterotoxigenic E.coli (ETEC) Not Detected (NotDetected); Giardia lamblia PCR Not Detected (NotDetected); Norovirus GI/GII PCR Not Detected (NotDetected); Plesiomonas shigelloides PCR Not Detected (NotDetected); Rotavirus A PCR Not Detected (NotDetected); Salmonella PCR Not Detected (NotDetected); Sapovirus PCR Not Detected (NotDetected); Shiga-like Toxin E.coli (STEC) Not Detected (NotDetected); Shigella/Enteroinvasive E.coli Not Detected (NotDetected); Vibrio cholerae PCR Not Detected (NotDetected); Vibrio species PCR Not Detected (NotDetected); Yersinia enterocolitica PCR Not Detected (NotDetected)
[2023-09-12] MEDS ORDERED: SODIUM CHLORIDE 0.9% 250 ML IV PRN (13:26)
[2023-09-12] MEDS: FUROSEMIDE 40 MG/4 ML VIAL IV ONE (13:55)
--- NOTE | 2023-09-12 14:30 | Hospitalist Progress Note ---
Date of Service September 12, 2023 Assessment & Plan (1) Volume overload: Plan: Patient has acute on chronic diastolic congestive heart failure Acute CHFpEF Patient was clearly admitted with pulmonary edema BNP 1300 Chest x-ray showing pulmonary edema Responded to IV diuretics Discontinued IV Bumex as patient appears euvolemic today Switched to p.o. Bumex home dose Kidney function tolerating Creatinine stable Most likely related to dietary noncompliance (2) Hypoxia: Plan: -Patient had been requiring 1-2L NC since arrival -Not on home O2, denies previous hx of KITA After treatment with diuretics, oxygen requirements improved. She is now on room air. -Likely due to volume overload -In no respiratory distress -Continue treatment per Volume overload plan -Incentive spirometry, flutter therapy, Prn O2 to keep SpO2 between 92-95% (3) Paroxysmal atrial fibrillation: Plan: -Currently stable -Continue Eliquis and metoprolol Hemoglobin dropped from 8.1-7.7. Decided to give her a unit of blood. Ordered stool guaiac, pending (4) Urinary retention: Plan: Continue Jacques catheter for now Urology on board CT abdomen pelvis reviewed -Switched from IV to p.o. Bumex -Will need voiding trial in 5 to 7 days, per urology Follow-up with urology outpatient Treat constipation per urology recommendation (5) Elevated troponin: Plan: -Initial high sen trop elevated at 29-->38 on 2 hour repeat -Denies chest discomfort -No acute ST segment or T-wave changes on ECG -Likely due to demand ischemia from volume overload and hypoxia -Continue to monitor on tele (6) Swelling of both lower extremities: Plan: -Patient noted to have significant, symmetrical BL LE venous stasis with clear drainage -No signs of infection -Now S/P BL JESSICA wraps placed by nursing staff at time of admission -Continue with jessica wraps and care per volume overload -Wound care nurse on board (7) Fungal infection of skin of abdomen: Plan: -Noted to have erythema and skin breakdown in the folds of the BL groin and abdomen consistent with fungal infection -S/P Nystatin powder in the ED -Will continue with TID scheduled nystatin powder for now -Wound care nurse consult (8) Type 2 diabetes mellitus with neurologic complication, with long-term current use of insulin: Plan: -Monitor BSG ACHS, goal is 110-160 -Normally takes 40 units HS lantus -Will convert to 20 units BID for now -Start CF 50 and CR 15 -Adjust regimen as needed (9) Hypertension: Plan: -Initially hypertensive with systolics in the 200's on arrival -Currently fairly stable If blood pressure stays elevated on current regimen, may add amlodipine -Continue Hydralazine, Imdur, and p.o. Bumex (10) Diarrhea: Plan: Patient started having diarrhea overnight Ordered stool bio fire which came back negative Ordered stool guaiac, pending. This was ordered since the patient also had a hemoglobin drop. Plan PT/OT recommends acute rehab but patient is refusing. Admission and Anticipated Discharge Date Admission Date: September 09, 2023 Subjective Patient tells me that she had a rough night. She started with diarrhea overnight and it is ongoing. She is feeling washed out because of it. Review of Systems Review of Systems: All systems reviewed & are unremarkable except as noted in Subjective Physical Exam Physical Exam: General: Awake, conversant Heart: S1, S2/regular rate and rhythm, no murmur rubs or gallops Lungs: Clear to auscultation bilaterally. Normal effort Abdomen: Soft/nontender/nondistended. No hepatosplenomegaly Extremities: No clubbing/cyanosis. Bilateral leg swelling 1+ pitting edema Behavior: Appropriate, cooperative Results & Data Results & Data Vital Signs (Past 12 Hours) Vital Signs Temp Pulse Pulse Resp BP Pulse Ox O2 Del Method 09/12/23 11:41 37.3 C 72 16 166/56 H 93 Room Air 09/12/23 09:56 Room Air 09/12/23 09:54 66 09/12/23 07:38 37.2 C 74 16 169/52 H 95 Room Air 09/12/23 03:41 Room Air 09/12/23 03:36 37.2 C 77 20 124/68 91 Room Air Laboratory Results Abnormal lab results 09/11/23 09/11/23 09/12/23 Range/Units 17:13 20:09 06:36 RBC 2.47 L (4.20-5.40) M/uL Hgb 7.7 L (12.0-16.0) g/dl Hct 25.3 L (37.0-47.0) % MCV 102.4 H (80.0-100.0) fL MCHC 30.4 L (32.0-36.0) g/dL RDW Std Deviation 66.0 H (36.4-46.3) fL RDW Coeff of Kirsty 17.8 H (11.5-14.5) % Lymph # (Auto) 0.34 L (1.20-3.40) K/uL [place] # (Auto) 0.75 H (0.11-0.59) K/uL BUN 55 H (6-23) mg/dl Creatinine 2.54 H (0.6-1.2) mg/dl BUN/Creatinine Ratio 21.7 H (10-20) Glucose 115 H (70-99(Fasting)) mg/dl POC Glucose 126 H 132 H (70-99) mg/dl Calcium 7.9 L (8.6-10.3) mg/dl 09/12/23 09/12/23 Range/Units 08:24 12:21 RBC (4.20-5.40) M/uL Hgb (12.0-16.0) g/dl Hct (37.0-47.0) % MCV (80.0-100.0) fL MCHC (32.0-36.0) g/dL RDW Std Deviation (36.4-46.3) fL RDW Coeff of Kirsty (11.5-14.5) % Lymph # (Auto) (1.20-3.40) K/uL [place] # (Auto) (0.11-0.59) K/uL BUN (6-23) mg/dl Creatinine (0.6-1.2) mg/dl BUN/Creatinine Ratio (10-20) Glucose (70-99(Fasting)) mg/dl POC Glucose 112 H 180 H (70-99) mg/dl Calcium (8.6-10.3) mg/dl PG Care Time/CCT Total # of Minutes Spent Total Time Spent with Patient: Total time spent is greater than 50% in coordination of care (as documented) at patient's floor/unit and/or counseling patient: Coding Level of Care Code 84180 SUB INP/OBS CARE 2/35MIN Diagnoses Volume overload E87.70 Hypoxia R09.02 Paroxysmal atrial fibrillation I48.0 Urinary retention R33.9 Elevated troponin R79.89 Swelling of both lower extremities M79.89 Fungal infection of skin of abdomen B36.9 Type 2 diabetes mellitus with diabetic neuropathy, with long-term current use of insulin E11.40; Z79.4 Diabetes mellitus complication detail: with unspecified neuropathy Essential hypertension I10 Hypertension type: essential hypertension Diarrhea R19.7 (8) Type 2 diabetes mellitus with neurologic complication, with long-term current use of insulin Diabetes mellitus complication detail: with unspecified neuropathy Qualified Code(s): E11.40 - Type 2 diabetes mellitus with diabetic neuropathy, unspecified; Z79.4 - decatizer (current) use of insulin (9) Hypertension Hypertension type: essential hypertension Qualified Code(s): I10 - Essential (primary) hypertension
[2023-09-12 18:24] VITALS: RESP 18
[2023-09-13 10:05] LABS: BUN Creatinine Ratio 24.1 (10-20); Calcium 8.4 mg/dl (8.6-10.3); Creatinine Clr Calc Pharmacy 19.1 ml/min; Est GFR (African American) 19.8 ml/min; Est GFR (Non-African American) 17.1 ml/min; Potassium 3.5 mmol/L (3.5-5.1)
[2023-09-13 10:17] LABS: Hematocrit (blood only) 30.9 % (37.0-47.0); Hemoglobin 9.9 g/dl (12.0-16.0); Mean Corpuscular Hemoglobin 30.8 pg (25.0-34.0); Mean Corpuscular Volume 96.3 fL (80.0-100.0); Mean Platelet Volume 9.8 fL (9.4-12.4); Platelet Count 220 K/uL (130-400); RDW Coefficient of Variation 19.3 % (11.5-14.5); RDW Standard Deviation 68.8 fL (36.4-46.3); Red Blood Count 3.21 M/uL (4.20-5.40); White Blood Count 6.16 K/ul (4.8-10.8)
--- NOTE | 2023-09-13 11:36 | Discharge Summary ---
Date of Service September 13, 2023 Admission HPI Per Admitting Provider Patricia Unger is a 83 year-old female with a past medical history of HFpEF, CABG in 2006, CKD, hyperlipidemia, hypercalcemia, type 2 diabetes mellitus, PVD, paroxysmal afib and DVT (on Eliquis) who presented to the [facility] ED via EMS on 09/09/23 with a chief complaint of progressive SOB/HOPPER over the past 12 hours. On arrival to the ED she was noted to be hypertensive at 198/97, tachypneic at 38, and stable on 2L NC started by EMS. Labs were significant for a VBG WNL, initial high sen trop of 20 38 on 2 hour repeat, BNP of 1389 (up from 826 as of 06/09/23), and negative full respiratory biofire. Chest xray was read as Cardiomegaly with mild interstitial pulmonary edema and a small left pleural effusion.. Prior to admission the patient was given 1mg IV Bumex, 0.5 inches Nitro paste, and external nystatin. At the time of the exam the patient was lying in bed in no acute distress, currently stable on 2L NC. States she had been feeling well when she woke up yesterday, has been noticing increased swelling in the BL LE's over the past 2 weeks. Took her home meds as prescribed, including BID Bumex. Went to dinner at a [place] restaurant last night, started feeling significantly SOB after. Did not sleep last night due to progressive SOB/HOPPER. When asked if she normally tries to limit her sodium and fluid intake she responds "yes, but I do try to drink alot of water for my kidneys". I explained to her that most food from Greek restaurants has lots of sodium and she responded, "that's what they told me this morning". Denies recent fever, chills, chest pain, cough, abd pain, nausea, vomiting, diarrhea, dysuria, hematuria, melena, and recent trauma. She is a full code and would want her daughter to make medical decisions for her if she cannot make them herself. Please refer to Dr. Tracey's attestation for any changes to the treatment plan Admission Exam Per Admitting Provider General: In no acute distress, stated age, chronically ill appearing but non- toxic HEENT: Normocephalic, atraumatic, no scleral icterus, pupils around round, symm etrical, and reactive to light, moist mucus membranes, +JVD, trachea midline, no thyromegaly Chest/Pulm: No respiratory distress, symmetrical chest expansion, decreased fermin th sounds in the BL lower lung mora with rales and crackles in the mid and upper lung mora Cardiac: irregular rate and rhythm, no murmurs noted Abdomen: Negative for ascites and bruising, normoactive bowel sounds, soft, non- tender to palpation throughout Musculoskeletal: Symmetrical and without signs of acute trauma, upper and lower extremities with full ROM, no atrophy, spasticity, or flaccidity Extremities: Radial, dorsalis pedis, and posterior tibial pulses are intact and symmetrical, BL LE's with symmetrical and significant venous stasis with clear drainage Skin: Patient with erythema and skin breakdown in the folds of the BL groin and abdomen consistent with fungal infection Neuro: Alert and oriented to person, place, month, year, and president, no focal defects, no tremors noted Psych: No acute distress, calm and cooperative during the exam Principal Diagnosis Acute on chronic diastolic congestive heart failure Uncontrolled hypertension - anemia requiring 1U of blood during the hospital stay. May need anemia workup outpatient Discharge Exam General: Awake, conversant Heart: S1, S2/regular rate and rhythm, no murmur rubs or gallops Lungs: Clear to auscultation bilaterally. Normal effort Abdomen: Soft/nontender/nondistended. No hepatosplenomegaly Extremities: No clubbing/cyanosis. Bilateral leg swelling 1+ pitting edema Behavior: Appropriate, cooperative Discharge Data Allergies Allergy/AdvReac Type Severity Reaction Status Date / Time spironolactone AdvReac Severe Hyperkalemi Verified 08/24/23 10:57 a sulfamethoxazole AdvReac Severe SEVERE Verified 08/24/23 10:57 [From Bactrim] VOMITING trimethoprim [From Bactrim] AdvReac Severe SEVERE Verified 08/24/23 10:57 VOMITING JESSICA Inhibitors AdvReac Intermediate ARF Verified 08/24/23 10:57 diclofenac AdvReac Intermediate ankle Verified 08/24/23 10:57 swelling iron AdvReac Intermediate nausea/ Verified 08/24/23 10:57 VOMITING Consultations 09/09/23 10:38 ED Decision to Admit Stat 09/09/23 12:03 Consult Urology Routine Ordered Studies 09/09/23 11:01 CT abd pelvis wo con Urgent Hospital Course (1) Volume overload: Patient has acute on chronic diastolic congestive heart failure Acute CHFpEF Patient was clearly admitted with pulmonary edema BNP 1300 Chest x-ray showing pulmonary edema Responded to IV diuretics Discontinued IV Bumex as patient appeared euvolemic Switched to p.o. Bumex home dose Kidney function tolerating Creatinine stable Most likely related to dietary noncompliance Being discharged on home dose of p.o. Bumex. Advised on dietary compliance. (2) Hypoxia: -Patient had been requiring 1-2L NC since arrival -Not on home O2, denies previous hx of KITA After treatment with diuretics, oxygen requirements improved. She is now on room air. -Likely due to volume overload -In no respiratory distress -Continue treatment per Volume overload plan (3) Paroxysmal atrial fibrillation: -Currently stable -Continue Eliquis and metoprolol Hemoglobin dropped from 8.1-7.7. Decided to give her a unit of blood. Ordered stool guaiac, pending Patient will need an anemia workup outpatient Today patient feels much more stronger after receiving the blood yesterday. (4) Urinary retention: Continue Jacques catheter for now Urology on board CT abdomen pelvis reviewed -Switched from IV to p.o. Bumex -Will need voiding trial in 5 to 7 days, per urology. I was informed by the daughter after she was discharged that the Jacques catheter prior to discharge. I am hoping that she is able to urinate (5) Elevated troponin: -Initial high sen trop elevated at 29-->38 on 2 hour repeat -Denies chest discomfort -No acute ST segment or T-wave changes on ECG -Likely due to demand ischemia from volume overload and hypoxia (6) Swelling of both lower extremities: -Patient noted to have significant, symmetrical BL LE venous stasis with clear drainage -No signs of infection -Now S/P BL JESSICA wraps placed by nursing staff at time of admission -Continue with jessica wraps and care per volume overload -Wound care nurse on board (7) Fungal infection of skin of abdomen: -Noted to have erythema and skin breakdown in the folds of the BL groin and abdomen consistent with fungal infection -S/P Nystatin powder in the ED -Will continue with TID scheduled nystatin powder for now -Wound care nurse consult (8) Type 2 diabetes mellitus with neurologic complication, with long-term current use of insulin: -Monitor BSG ACHS, goal is 110-160 -Normally takes 40 units HS lantus -Will convert to 20 units BID for now -Start CF 50 and CR 15 -Adjust regimen as needed (9) Hypertension: -Initially hypertensive with systolics in the 200's on arrival -Currently fairly stable If blood pressure stays elevated on current regimen, may add amlodipine -Continue Hydralazine, Imdur, and p.o. Bumex (10) Diarrhea: Patient started having diarrhea since yesterday. Patient tells me that it is getting better Ordered stool bio fire which came back negative Ordered stool guaiac, pending. This was ordered since the patient also had a hemoglobin drop. Advised to use Imodium as needed Plan PT/OT recommends acute rehab but patient is refusing. Discharge today to home. I spoke to the daughter after the patient was discharged to update her about the hospital stay Total Time Total Time Spent Total Time Spent (In Minutes): 35 Discharge Plan Discharge Items Patient Disposition: Home - Home Health Services Reason For Visit: HOPPER/SOB, CHF EXACERVATION Discharge Diagnosis: Acute on chronic diastolic congestive heart failure Uncontrolled hypertension - anemia requiring 1U of blood Activity: Resume your previous activity Non-emergency contact: Primary Care Provider Call non-emergency contact if: you have any medication questions and your symptoms worsen Follow-up/Referrals: Isaura Rashid CRNP [Primary Care Provider] - 09/21/23 10:30 am Clement Butler MD [Physician] - 09/19/23 12:30 pm Diet: Carb Consistent or DM2, Heart Healthy and Low Fat Addtl Attending Provider Instructions: Advised to follow-up with PCP in 1 week Advised on low-sodium diet (Greek food usually has high sodium) Advised to use [id number] Imodium for diarrhea Pending Studies at Discharge: No Stand-Alone Forms: My [employer], Smoking Cessation Medications and DC Order Prescriptions: Continued Procrit 2,000 unit/mL solution 2,000 unit subcut .[id number] insulin aspart U-100 [Novolog FlexPen U-100 Insulin] 100 unit/mL (3 mL) insulin pen See Rx Instructions SQ TID Qty: 60 3RF Rx Instructions: use per sliding scale up to 60 units daily SQ isosorbide mononitrate 60 mg tablet extended release 24 hr 60 mg PO QAM Qty: 90 3RF Rx Instructions: TOTAL DOSE 90 MG--TAKES WITH 30 MG TAB. isosorbide mononitrate 30 mg tablet extended release 24 hr 30 mg PO QAM Qty: 90 3RF Rx Instructions: TOTAL DOSE 90 MG--TAKES WITH 60 MG TAB. hydralazine 100 mg tablet 100 mg PO TID Qty: 270 3RF bumetanide 0.5 mg tablet 0.5 mg PO BID Qty: 120 3RF atorvastatin 40 mg tablet 40 mg PO HS Qty: 90 3RF cilostazol 100 mg tablet 100 mg PO BID Qty: 180 3RF Rx Instructions: TAKE 1 TABLET TWICE A DAY hydrocodone-acetaminophen 5-325 mg tablet 0.5 - 1 tab PO Q6H PRN (Reason: pain) Qty: 30 0RF calcitriol [Rocaltrol] 0.25 mcg capsule 0.25 mcg PO DAILY Qty: 90 3RF aspirin 81 mg tablet,delayed release (DR/EC) 81 mg PO QPM Eliquis 2.5 mg tablet 2.5 mg PO BID Qty: 180 3RF Rx Instructions: Stop apixiban 5 mg BID (DME) pen needle, diabetic [BD Ultra-Fine Short Pen Needle] 31 gauge x 5/16" needle See Dose Instructions .ROUTE .MEDSUPPLY Qty: 30 Rx Instructions: use 1 needle 4 x daily insulin glargine [Lantus Solostar U-100 Insulin] 100 unit/mL (3 mL) insulin pen 40 unit subcut HS Qty: 60 3RF Rx Instructions: [facility]- pt reports this dose was lowered to 40 units "some time ago" metoprolol succinate 200 mg tablet extended release 24 hr 200 mg PO BID Qty: 180 3RF omega [id number]-fish oil [Fish Oil] 1,000 mg (120 mg-180 mg) Capsule 1 cap PO QPM cyanocobalamin (vitamin B-12) 1,000 mcg Capsule 1,000 mcg PO QAM magnesium oxide 400 mg Capsule 400 mg PO BID fexofenadine [Gabby Allergy] 60 mg tablet 60 mg PO DAILY PRN (Reason: Allergy Symptoms) diclofenac sodium [Voltaren Arthritis Pain] 1 % gel 2 g topical QID PRN (Reason: arthritic pain ) Qty: 100 3RF Rx Instructions: apply to single elbow, wrist or hand; for hand includes palm/fingers/back of hand alendronate [Fosamax] 70 mg tablet 70 mg PO WK Rx Instructions: SUNDAYS gabapentin 100 mg capsule 100 mg PO TID Rx Instructions: 100 mg orally; 1 cap PO QHS x3 days, then 1 cap in AM and 1 QHS x3 days, then TID; Discharge Orders: Discharge Order (Routine); Ordered 09/13/23 Ordered By: Ilya Newby Admission Data Admit Date/Time: 09/09/23 10:31 Attending Provider: Ilya Newby Admit Provider: Tom Tracey Primary Care Provider: Isaura Rashid Other Providers: Tom Tracey Other Interventions: Discharge Summary Assessment (RN) Last Done: 09/13/23 12:18 Coding Level of Care Code 04991 INP/OBS DISCH >30 MIN Diagnoses Volume overload E87.70 Hypoxia R09.02 Paroxysmal atrial fibrillation I48.0 Urinary retention R33.9 Elevated troponin R79.89 Swelling of both lower extremities M79.89 Fungal infection of skin of abdomen B36.9 Type 2 diabetes mellitus with diabetic neuropathy, with long-term current use of insulin E11.40; Z79.4 Diabetes mellitus complication detail: with unspecified neuropathy Essential hypertension I10 Hypertension type: essential hypertension Diarrhea R19.7
[2023-09-13 11:44] VITALS: BP 186/66; PULSE 74; TEMP 97.5; O2SAT 97
== END 2023-09-13 14:20 | disposition home health service (06) | DRG 291 ==
LOC: ED 05:39 → EDINP 10:31 → SUATTDRO 10:31 → EDINP 11:30 → 2N 09-10 01:52

== ENCOUNTER 2023-10-02 08:20 | Inpatient (IN) ==
--- NOTE | 2023-10-02 08:37 | Emergency Department Note ---
Impression & Plan Acute diastolic CHF (congestive heart failure), Hypoxia ED Provider Note Provider: Chaitanya Trveizo MD DATE OF SERVICE: 10/02/2023 CHIEF COMPLAINT: Shaky, short of breath HISTORY OF PRESENT ILLNESS: Patient is a 83-year-old female history of diastolic heart failure, CAD/CABG, paroxysmal A-fib and DVT on Eliquis, CKD, type 2 diabetes, and PVD presenting here today via ambulance from her daughters. Patient states she has been staying with her daughter recently and yesterday started feel little bit shaky. Worsened today but was able to get out of bed. Developed some shortness of breath this morning particularly with exertion. Denies any pain and in particular no chest pain. Denies any falls. No reported nausea or vomiting or cough. Denies urinary symptoms to me. Not normally on oxygen at home. Denies sick contact. Denies significant swelling of the legs. PAST MEDICAL HISTORY: As noted above MEDICATIONS: Reviewed home medications and has been taking them but not yet this morning. SOCIAL HISTORY: Non-smoker, PHYSICAL EXAM: GENERAL: alert and oriented in no acute distress on stretcher Head: normocephalic and atraumatic EYES: No injection, discharge or icterus. NECK: Trachea midline. ENT: Mucous membranes pink and moist. LUNGS: Airway patent. No retraction but mild tachypnea. Some crackles on auscultation on lung bases. HEART: Irregularly irregular rate and rhythm. No chest wall tenderness ABDOMEN: Soft and non-tender, without guarding or rebound. SKIN: Acyanotic, warm, dry some chronic skin changes to bilateral lower extremity without significant erythema. A few scattered contusions in the upper arms with stitches in place over the left distal index finger without significant erythema or bleeding appreciated. EXTREMITIES: Without swelling, tenderness or deformity with trace bilateral pedal edema. NEUROLOGICAL: No focal deficits moving all extremities. No aphasia. No facial droop or slurred speech. EK bpm atrial fibrillation. Left axis and incomplete right bundle branch block notable. QTc 425. No acute ST segment elevation. CONTINUOUS CARDIAC MONITORING: was ordered and showed a heart rate of 80s-100s bpm in atrial fibrillation Patient's laboratory studies and imaging reviewed. Differential includes Infection, dehydration, metabolic abnormality, hypo/hyperglycemia, electrolyte disturbance, anemia, hypoxia/pneumonia/CHF/COPD, cardiac sources, neurologic, as well as other pathologies. IMPRESSION/MEDICAL DECISION MAKING: No fall history but shaky by report. Denies abdominal symptoms or dysuria. Compliance with medications but did not have morning meds today. Not normally on oxygen and notable upon arrival to be mildly tachypneic and hypoxic on room air. Noted to be hypertensive. Trace edema to lower extremities but some crackles in lung bases. Basic labs will be obtained. Does not appear encephalopathic no focal deficits doubt acute CVA, meningitis, or CVA at this time. Will give an IV dose of Bumex given concern for possible CHF and the fact she also did not take her meds yet this morning. Not really reporting URI symptoms. Respiratory viral panel be completed as well as a VBG for completeness. Anticoagulated with Eliquis and doubt PE/DVT. Not having significant pain and EKG without findings of STEMI. Chest x-ray obtained here with evidence of small pleural effusions and congestive failure. Hemoglobin stable to slightly improved before with stable CKD. No significant lecture light abnormalities. Troponin downtrending from previous. BNP is significantly elevated. Will treat with some IV Bumex but does not appear to be in significant respiratory distress and blood pressure is improved here on reassessment no longer than 200 systolic. Will bring into the hospital further care what appears to be CHF. Hospitalist team contacted. Patient and daughter updated at bedside. Denies any salt discretion or significant weight gain but does states she did have some watermelon yesterday. DIAGNOSIS: Hypoxia, acute diastolic CHF exacerbation DISPOSITION: Hospitalist will evaluate Patient was agreeable with this plan. Past Med/Surg History Problem List (Updated 10/02/23 @ 11:07 by Pavel Olivarez PA-C) Generalized weakness Acute heart failure with preserved ejection fraction Hypoxia (Acute) Laceration of left index finger (Acute) Chronic kidney disease (Acute) Congestive heart failure (Acute) Diarrhea Hypoxia Elevated troponin Urinary retention Fungal infection of skin of abdomen Swelling of both lower extremities Volume overload Carpal tunnel syndrome, left Paresthesia of right lower extremity Neuroforaminal stenosis of lumbosacral spine Lumbosacral spondylosis Paroxysmal atrial fibrillation Paresthesia (Acute) Brain TIA (Acute) (HFpEF) heart failure with preserved ejection fraction Acute diastolic CHF (congestive heart failure) (Acute) DVT (deep venous thrombosis) Right upper leg DVT -- March 2020 -- placed on eliquis.-NO ISSUES SINCE Recent u/s from 07/07/20= shows continued evidence of right common femoral DVT. Right knee DJD PVD (peripheral vascular disease) on Pletal Malignant neoplasm of upper-outer quadrant of right breast in female, estrogen receptor positive (Chronic) Vitamin D deficiency (Chronic) Type 2 diabetes mellitus with neurologic complication, with long-term current use of insulin (Acute) Obesity (BMI 35.0-39.9 without comorbidity) (Acute) Dyslipidemia (high LDL; low HDL) (Acute) Dysesthesia (Acute) History of total left knee replacement Thickened endometrium S/P right colectomy Status post hysteroscopy CKD (chronic kidney disease), stage IV Hyperparathyroidism HOPPER (dyspnea on exertion) Osteoporosis Chronic anticoagulation History of left knee replacement History of colon cancer 2020- adenocarcinoma Edema (Acute) Hypertension S/P laparoscopic colectomy (08/26/20) Laparoscopic Extended Hemicolectomy, Extensive enterolysis - Sohail Quiroga, DO History of coronary artery bypass graft 3 VESSELS 2006-[facility] [place] CAD (coronary artery disease) s/p 3 vessel CABG 2006 Medical History New onset a-fib Small bowel obstruction Ileus Encounter for pre-operative examination Anemia Hx of breast cancer Lumbar spinal stenosis Peripheral vascular disease Hx of acute respiratory failure Osteoarthritis Venous stasis dermatitis Chronic kidney disease Hyperlipidemia Surgical History Hx of colonoscopy Hx of lymph node excision Status post dilation and curettage History of esophagogastroduodenoscopy (EGD) S/P epidural steroid injection History of partial mastectomy of right breast Status post trigger finger release History of total knee replacement History of adverse response to anesthesia History of Moh's micrographic surgery for skin cancer S/P tendon repair History of cholecystectomy History of dilatation and curettage History of bilateral tubal ligation History of cataract surgery History of cardiac cath Family History Mother No problems noted. Father No problems noted. Sister No problems noted. Sister No problems noted. Sister No problems noted. Sister No problems noted. Sister No problems noted. Daughter Myocardial infarction Breast cancer Family history of reaction to anesthesia Daughter Heart disease Other No family history of adverse response to anesthesia Denies family history of Ovarian cancer Prostate cancer Colorectal cancer Social History Smoking Status: Never smoker Second Hand Exposure: Yes; Do You Dip or Chew Tobacco: No; Tobacco Cessation Education Requested by Patient: No Hx Alcohol Use: Yes Alcohol type: wine Hx Substance Use: No Preferred Language: Syriac Communication Ability: Effective Visual Impairment: Limited Hearing Ability: Normal Band Attacher Required: No Beliefs That Will Affect Care: None marital status: / Current Living Situation: Alone current occupational status: retired How many Children do You have: 2 Feels Safe at Home: Yes Safety Concerns: Feels Safe At This Time Childhood Exposure to Second-Hand Smoke: No Diet: low salt and regular caffeine: No during the past year weight has: remained stable Dental Care, Regularly: No Physical Activity Frequency: 3-4 Times per Week Seatbelt Use: always Sunscreen Use: Yes Do you think of yourself as: straight/heterosexual Gender Identity: Female Assistive Devices: Cane, Denture - Upper, Denture - Lower and Glasses Allergies Allergies Allergy/AdvReac Type Severity Reaction Status Date / Time spironolactone AdvReac Severe Hyperkalemi Verified 09/21/23 10:26 a sulfamethoxazole AdvReac Severe SEVERE Verified 09/21/23 10:26 [From Bactrim] VOMITING trimethoprim [From Bactrim] AdvReac Severe SEVERE Verified 09/21/23 10:26 VOMITING JESSICA Inhibitors AdvReac Intermediate ARF Verified 09/21/23 10:26 diclofenac AdvReac Intermediate ankle Verified 09/21/23 10:26 swelling iron AdvReac Intermediate nausea/ Verified 09/21/23 10:26 VOMITING Home Meds Home Medications Medication Instructions Recorded Confirmed cyanocobalamin (vitamin B-12) 1,000 mcg PO QAM 12/28/17 10/02/23 1,000 mcg capsule magnesium oxide 400 mg PO BID 12/28/17 10/02/23 omega 3-ewo-hxa-fish oil 1,000 mg 1 cap PO QPM 12/28/17 10/02/23 (120 mg-180 mg) capsule (Fish Oil) fexofenadine 60 mg tablet (Gabby 60 mg PO DAILY PRN Allergy Symptoms 10/02/18 10/02/23 Allergy) pen needle, diabetic 31 gauge x #30 ea 07/19/19 05/17/24 5/16" (BD Ultra-Fine Short Pen Needle) aspirin 81 mg tablet,delayed 81 mg PO QPM 07/15/20 10/02/23 release epoetin jase 2,000 unit/mL 2,000 unit subcut .[id number] 12/02/20 10/02/23 injection solution (Procrit) alendronate 70 mg tablet (Fosamax) 70 mg PO WK 06/13/23 10/02/23 gabapentin 100 mg capsule 100 mg PO TID 09/09/23 10/02/23 insulin glargine 100 unit/mL (3 46 unit subcut HS 10/02/23 10/02/23 mL) subcutaneous pen (Lantus Solostar U-100 Insulin) Previous Rx's Medication Instructions Recorded insulin aspart U-100 100 unit/mL See Rx Instructions subcut TID #60 08/16/21 (3 mL) subcutaneous pen (Novolog mL FlexPen U-100 Insulin aspart) isosorbide mononitrate 30 mg 30 mg PO QAM #90 tabs 12/25/22 tablet,extended release 24 hr isosorbide mononitrate 60 mg 60 mg PO QAM #90 tabs 12/25/22 tablet,extended release 24 hr hydralazine 100 mg tablet 100 mg PO TID #270 tabs 12/28/22 apixaban 2.5 mg tablet (Eliquis) 2.5 mg PO BID #180 tabs 01/29/23 bumetanide 0.5 mg tablet 0.5 mg PO BID #120 tabs 05/15/23 atorvastatin 40 mg tablet 40 mg PO HS #90 tabs 05/23/23 cilostazol 100 mg tablet 100 mg PO BID #180 tabs 06/05/23 diclofenac sodium 1 % topical gel 2 g topical QID PRN arthritic pain 06/12/23 (Voltaren Arthritis Pain) #100 grams metoprolol succinate 200 mg 200 mg PO BID #180 tabs 06/13/23 tablet,extended release 24 hr hydrocodone 5 mg-acetaminophen 325 0.5 - 1 tab PO Q6H PRN pain #30 09/07/23 mg tablet tabs calcitriol 0.25 mcg capsule 0.25 mcg PO DAILY #90 caps 09/10/23 (Rocaltrol) peg 3350-sod [id number] See Rx Instructions PO .COMPLEX #2 09/14/23 178.7-7.3-0.5-1.12-0.9 gram oral mL soln (Suflave) Results & Data (ED) Vital Signs Vital Signs - 24 hr 10/02/23 08:23 10/02/23 08:27 10/02/23 08:30 Temperature 37.4 C Temperature Source Oral Pulse Rate 97 H 96 H 100 H Pulse Rate from SpO2 Sensor 93 H Respiratory Rate 22 39 H Respiratory Effort / Characteristics Non-Labored Spontaneous Respiratory Depth Normal Respiratory Pattern Blood Pressure 207/155 H Blood Pressure Mean 172 Pulse Oximetry 87 L 98 Oxygen Delivery Method Room Air Oxygen Flow Rate Sepsis Recent Fever Within 48 Hours No Sepsis New/Unexplained Change in Mental Status N/A Sepsis Action Taken by Nursing No Action Required 10/02/23 08:30 10/02/23 08:33 10/02/23 08:37 Temperature Temperature Source Pulse Rate 96 H Pulse Rate from SpO2 Sensor 97 H Respiratory Rate 21 Respiratory Effort / Characteristics Respiratory Depth Respiratory Pattern Blood Pressure Blood Pressure Mean Pulse Oximetry 98 Oxygen Delivery Method Nasal Cannula Nasal Cannula Oxygen Flow Rate 2 2 Sepsis Recent Fever Within 48 Hours Sepsis New/Unexplained Change in Mental Status Sepsis Action Taken by Nursing 10/02/23 08:37 10/02/23 08:39 10/02/23 09:00 Temperature Temperature Source Pulse Rate 82 Pulse Rate from SpO2 Sensor 86 Respiratory Rate 38 H Respiratory Effort / Characteristics Spontaneous Respiratory Depth Normal Respiratory Pattern Regular Blood Pressure 147/78 H Blood Pressure Mean 101 Pulse Oximetry 98 Oxygen Delivery Method Nasal Cannula Nasal Cannula Oxygen Flow Rate 2 2 Sepsis Recent Fever Within 48 Hours Sepsis New/Unexplained Change in Mental Status Sepsis Action Taken by Nursing 10/02/23 09:30 10/02/23 10:00 10/02/23 10:30 Temperature Temperature Source Pulse Rate 91 H 88 87 Pulse Rate from SpO2 Sensor 82 84 89 Respiratory Rate 27 H 31 H 34 H Respiratory Effort / Characteristics Respiratory Depth Respiratory Pattern Blood Pressure 167/70 H 176/90 H 185/91 H Blood Pressure Mean 102 118 122 Pulse Oximetry 85 L 98 97 Oxygen Delivery Method Room Air Nasal Cannula Nasal Cannula Oxygen Flow Rate 2 2 Sepsis Recent Fever Within 48 Hours Sepsis New/Unexplained Change in Mental Status Sepsis Action Taken by Nursing Laboratory Data 10/02/23 08:32 10/02/23 08:32 Lab Results 10/02/23 10/02/23 10/02/23 Range/Units 08:32 08:34 10:22 WBC 7.39 (4.8-10.8) K/ul RBC 3.16 L (4.20-5.40) M/uL Hgb 10.3 L (12.0-16.0) g/dl Hct 30.4 L (37.0-47.0) % MCV 96.2 (80.0-100.0) fL MCH 32.6 (25.0-34.0) pg MCHC 33.9 (32.0-36.0) g/dL RDW Std Deviation 63.8 H (36.4-46.3) fL RDW Coeff of Kirsty 17.9 H (11.5-14.5) % Plt Count 238 (130-400) K/uL MPV 10.1 (9.4-12.4) fL Immature Gran % (Auto) 0.5 % Neut % (Auto) 76.5 % Lymph % (Auto) 6.8 % Lander % (Auto) 14.2 % Eos % (Auto) 1.6 % Baso % (Auto) 0.4 % Neut # (Auto) 5.65 (1.40-6.50) K/uL Lymph # (Auto) 0.50 L (1.20-3.40) K/uL Lander # (Auto) 1.05 H (0.11-0.59) K/uL Eos # (Auto) 0.12 (0.00-0.50) K/uL Baso # (Auto) 0.03 (0.00-0.20) K/uL Immature Gran # (Auto) 0.04 (0.01-0.20) K/uL PT 11.2 (9.0-12.0) Seconds INR 1.0 (0.9-1.1) VBG pH 7.44 H (7.36-7.41) VBG pCO2 36 L (38-50) mmHg VBG pO2 36 mmHg VBG HCO3 25 mmol/L VBG O2 Saturation 68.2 % VBG Base Excess 0.5 mEq/L Sodium 137 (136-145) mmol/L Potassium 4.6 (3.5-5.1) mmol/L Chloride 104 (98-107) mmol/L Carbon Dioxide 25 (21-32) mmol/L Anion Gap 8 (3-11) BUN 34 H (6-23) mg/dl Creatinine 2.62 H (0.6-1.2) mg/dl Est Cr Clr Drug Dosing 18.2 ml/min Est GFR ( Amer) 19.0 ml/min Est GFR (Non-Af Amer) 16.4 ml/min BUN/Creatinine Ratio 13.0 (10-20) Glucose 126 H (70-99(Fasting)) mg/dl Calcium 8.9 (8.6-10.3) mg/dl Magnesium 1.9 (1.7-2.4) mg/dl Total Bilirubin 2.0 H (0.2-1.0) mg/dl AST 25 (13-39) U/L ALT 21 (7-52) U/L Alkaline Phosphatase 94 (34-104) U/L Troponin I High Sens 41.4 H 56.2 H* D (0-14) pg/ml B-Natriuretic Peptide 1190 H (0-100) pg/ml Total Protein 6.7 (6.0-8.3) gm/dl Albumin 3.4 (3.4-5.0) gm/dl Globulin 3.3 (2.5-4.0) gm/dl Albumin/Globulin Ratio 1.0 (0.9-2) Procalcitonin 0.04 (0-0.5) ng/ml TSH 4.787 H (0.300-4.500) uIu/ml Free T4 1.38 (0.61-1.60) ng/dl Adenovirus (PCR) Not Detected (NotDetected) B. pertussis DNA (PCR) Not Detected (NotDetected) B.parapertussis DNA PCR Not Detected (NotDetected) C. pneumoniae DNA (PCR) Not Detected (NotDetected) Coronavirus OC43 (PCR) Not Detected (NotDetected) Coronavirus HKU1 (PCR) Not Detected (NotDetected) Coronavirus 229E (PCR) Not Detected (NotDetected) SARS-CoV-2 (PCR) Not Detected (NotDetected) Coronavirus NL63 (PCR) Not Detected (NotDetected) Human Metapneumovir PCR Not Detected (NotDetected) Influenza Type A (PCR) Not Detected (NotDetected) Influenza Type B (PCR) Not Detected (NotDetected) M. pneumoniae (PCR) Not Detected (NotDetected) Parainfluenza 1 (PCR) Not Detected (NotDetected) Parainfluenza 2 (PCR) Not Detected (NotDetected) Parainfluenza 3 (PCR) Not Detected (NotDetected) Parainfluenza 4 (PCR) Not Detected (NotDetected) RSV (PCR) Not Detected (NotDetected) Entero/Rhino (PCR) Not Detected (NotDetected) Administered Medications Hydrocodone Bitart/Acetaminophen (Hydrocodone/Acetamophen 5/325mg Tab) 0.5 tab PO Q6H PRN PRN Reason: pain(5+) Stop: 10/16/23 12:29 Last Admin: 10/02/23 12:42 Dose: 0.5 tab Documented By: JOHNNY Gabapentin (Gabapentin 100 Mg Cap) 100 mg PO TID [facility] Stop: 11/01/23 13:59 Last Admin: 10/02/23 13:54 Dose: 100 mg Documented By: JOHNNY Hydralazine HCl (Hydralazine Tab 50 Mg Tab) 100 mg PO TID [facility] Stop: 11/01/23 13:59 Last Admin: 10/02/23 13:54 Dose: 100 mg Documented By: JOHNNY Insulin Aspart (Insulin Aspart Per Unit Charge) 0 units SC ACHS [facility] Stop: 11/01/23 11:29 Last Admin: 10/02/23 12:43 Dose: Not Given Documented By: JOHNNY Discontinued Medications Apixaban (Apixaban 2.5 Mg Tab) 2.5 mg PO NOW STA Stop: 10/02/23 10:38 Last Admin: 10/02/23 11:03 Dose: 2.5 mg Documented By: CARMEN Hydralazine HCl (Hydralazine Tab 50 Mg Tab) 100 mg PO NOW STA Stop: 10/02/23 10:38 Last Admin: 10/02/23 11:03 Dose: 100 mg Documented By: CARMEN Bumetanide 1 mg/ Syringe 4 mls @ 4 mls/min IV ONE ONE Stop: 10/02/23 08:33 Last Admin: 10/02/23 09:16 Dose: 4 mls/min Documented By: OSIEL Metoprolol Succinate (Metoprolol Succ 50mg Ext Rel Tab) 200 mg PO NOW STA Stop: 10/02/23 10:38 Last Admin: 10/02/23 11:03 Dose: 200 mg Documented By: CARMEN Imaging Data Radiologist's Impression: Chest X-Ray 10/02/23 08:28 SINGLE VIEW CHEST CLINICAL HISTORY: Generalized weakness. Dyspnea. FINDINGS: An AP, portable, upright chest radiograph is compared to study dated 09/09/2023 and correlated with chest CT dated 01/12/2022. The patient is status post midline sternotomy. The heart is enlarged noting atherosclerotic calcification of the thoracic aorta. There is pulmonary vascular congestion. There are small pleural effusions with dependent consolidation. No pneumothorax is seen. The skeletal structures are osteopenic. The bony thorax is grossly intact. IMPRESSION: 1 Cardiomegaly with evidence of congestive failure. 2. Small pleural effusions with dependent consolidation. ACT 112: Negative or not required by law. Electronically signed by: Maxime Gonzalez M.D. 10/02/2023 8:49 AM Discharge Plan Visit Data Chief Complaint: Shortness of Breath/Dyspnea Stated Complaint: SOB ED Provider: Chaitanya Trevizo Discharge Problem: Acute diastolic CHF (congestive heart failure), Hypoxia Patient Disposition: Admitted As Inpatient Discharge Instructions Interventions: ED Discharge Assessment Last Done: 10/02/23 11:33
--- NOTE | 2023-10-02 08:42 | Electrocardiogram Report ---
Test Reason : Blood Pressure : / mmHG Vent. Rate : 091 BPM Atrial Rate : 000 BPM P-R Int : 000 ms QRS Dur : 116 ms QT Int : 346 ms P-R-T Axes : 000 -47 073 degrees QTc Int : 425 ms Atrial fibrillation vs. Sinus rhythm with frequent Premature atrial complexes Left axis deviation Incomplete right bundle branch block Possible Old Septal infarct Abnormal ECG When compared with ECG of 09-SEP-2023 05:46, Borderline Criteria for Septal infarct is now Present Confirmed by Andi Botello ([id number]) on 10/02/2023 8:42:29 AM Referred By: Confirmed By:Andi Botello
--- NOTE | 2023-10-02 08:51 | XRay Report ---
SINGLE VIEW CHEST CLINICAL HISTORY: Generalized weakness. Dyspnea. FINDINGS: An AP, portable, upright chest radiograph is compared to study dated 09/09/2023 and correlate d with chest CT dated 01/12/2022. The patient is status post midline sternotomy. The heart is enlarged noting atherosclerotic calcification of the thoracic aorta. There is pulmonary vascular congestion. T here are small pleural effusions with dependent consolidation. No pneumothorax is seen. The skeletal structures are osteopenic. The bony thorax is grossly intact. IMPRESSION: 1 Cardiomegaly with evidence of congestive failure. 2. Small pleural effusions with dependent consolidation. ACT 112: Negative or not required by law. Electronically signed by: Maxime Gonzalez M.D. 10/02/2023 8:49 AM
[2023-10-02 08:56] LABS: Base Excess VBG 0.5 mEq/L; HCO3 VBG 25 mmol/L; Oxygen Saturation VBG 68.2 %; PCO2 VBG 36 mmHg (38-50); PO2 VBG 36 mmHg; pH VBG 7.44 (7.36-7.41)
[2023-10-02 09:00] LABS: Basophils # (auto) 0.03 K/uL (0.00-0.20); Basophils % (auto) 0.4 %; Eosinophils # (auto) 0.12 K/uL (0.00-0.50); Eosinophils % (auto) 1.6 %; Hematocrit (blood only) 30.4 % (37.0-47.0); Hemoglobin 10.3 g/dl (12.0-16.0); Immature Granulocytes # (auto) 0.04 K/uL (0.01-0.20); Immature Granulocytes % (auto) 0.5 %; Lymphocytes % (auto) 6.8 %; Mean Corpuscular Hemoglobin 32.6 pg (25.0-34.0); Mean Corpuscular Hgb Conc 33.9 g/dL (32.0-36.0); Mean Corpuscular Volume 96.2 fL (80.0-100.0); Mean Platelet Volume 10.1 fL (9.4-12.4); Monocytes # (auto) 1.05 K/uL (0.11-0.59); Monocytes % (auto) 14.2 %; Neutrophils # (auto) 5.65 K/uL (1.40-6.50); Neutrophils % (auto) 76.5 %; Platelet Count 238 K/uL (130-400); RDW Coefficient of Variation 17.9 % (11.5-14.5); RDW Standard Deviation 63.8 fL (36.4-46.3); Red Blood Count 3.16 M/uL (4.20-5.40); White Blood Count 7.39 K/ul (4.8-10.8)
[2023-10-02] MEDS: BUMETANIDE 1 MG in SYRINGE 0 ML IV ONE (09:16)
[2023-10-02 09:24] LABS: Albumin Level 3.4 gm/dl (3.4-5.0); Calcium 8.9 mg/dl (8.6-10.3); Creatinine Clr Calc Pharmacy 18.2 ml/min; Est GFR (Non-African American) 16.4 ml/min; Globulin 3.3 gm/dl (2.5-4.0); Magnesium 1.9 mg/dl (1.7-2.4); Potassium 4.6 mmol/L (3.5-5.1); Total Protein 6.7 gm/dl (6.0-8.3)
[2023-10-02 09:30] LABS: Troponin I High Sensitivity 41.4 pg/ml (0-14)
[2023-10-02 09:34] LABS: Prothrombin Time 11.2 Seconds (9.0-12.0)
[2023-10-02 09:39] LABS: Thyroid Stimulating Hormone 4.787 uIu/ml (0.300-4.500)
[2023-10-02 10:00] LABS: Adenovirus PCR Not Detected (NotDetected); Bordetella parapertussis PCR Not Detected (NotDetected); Bordetella pertussis PCR Not Detected (NotDetected); Chlamydia pneumoniae PCR Not Detected (NotDetected); Coronavirus 229E PCR Not Detected (NotDetected); Coronavirus CoV-2 (COVID19)PCR Not Detected (NotDetected); Coronavirus HKU1 PCR Not Detected (NotDetected); Coronavirus NL63 PCR Not Detected (NotDetected); Coronavirus OC43PCR Not Detected (NotDetected); Human Metapneumovirus PCR Not Detected (NotDetected); Influenza A PCR Not Detected (NotDetected); Influenza B PCR Not Detected (NotDetected); Mycoplasma pneumoniae PCR Not Detected (NotDetected); Parainfluenza Virus 1 PCR Not Detected (NotDetected); Parainfluenza Virus 2 PCR Not Detected (NotDetected); Parainfluenza Virus 3 PCR Not Detected (NotDetected); Parainfluenza Virus 4 PCR Not Detected (NotDetected); Respiratory Syncytial VirusPCR Not Detected (NotDetected); Rhinovirus/Enterovirus PCR Not Detected (NotDetected)
[2023-10-02 10:17] LABS: T4 Free Thyroxine 1.38 ng/dl (0.61-1.60)
[2023-10-02] MEDS ORDERED: GLUCOSE 40% GEL 15 GM TUBE PO PRN (10:39)
[2023-10-02] MEDS ORDERED: DEXTROSE 50% 50 ML SYRINGE IV PRN (10:39)
[2023-10-02] MEDS ORDERED: GLUCAGON FOR INJ 1 MG VIAL SQ PRN (10:39)
[2023-10-02] MEDS ORDERED: GLUCOSE 10 TAB/TUBE PO PRN (10:39)
[2023-10-02] MEDS ORDERED: CARBOHYDRATES FOR HYPOGLYCEMIA PO PRN (10:39)
[2023-10-02] MEDS: METOPROLOL SUCC 50MG EXT REL TAB PO STA (11:03)
[2023-10-02] MEDS: hydrALAZINE TAB 50 MG TAB PO STA (11:03)
[2023-10-02] MEDS: APIXABAN 2.5 MG TAB PO STA (11:03)
--- NOTE | 2023-10-02 11:09 | History & Physical Report ---
Date of Service October 02, 2023 Assessment & Plan (1) Acute heart failure with preserved ejection fraction: Plan: -Admit to med/tele on pulse oximetry -Currently hemodynamically stable, stable on 2L NC, and non-toxic appearing -Presented to the ED via EMS this am due to increased SOB -Noted to be hypoxic with SpO2 in the mid 80's on RA, hypertensive, and volume overloaded -Very similar to her presentation for admission at the beginning of this month -Suspect the etiology is the same with urinary retention causing fluid retention and CHF exacerbation -CXR with pulmonary edema and BL pleural effusions -Has not yet voided since receiving 1mg IV bumex at 0830 this am -Bladder scan on admission is 290cc -Will continue her on 0.5 mg IV Bumex BID17 -Continue home Imdur and metoprolol -Will repeat bladder scan with PVR in 2 hours, if still unable to void will place new sims cath as the one on her last admission was mistakenly removed on the day of discharge -Monitor volume status and daily weight -Home Elqiuis for DVT PPX -HH/DMII diet with 2gm sodium and 1500 mL fluid restrictions -AM CBC, BMP,mag, PT/INR (2) Hypoxia: Plan: -Noted to be hypoxic in the mid 80's on arrival -Likely due to acute CHF exacerbation with pulmonary edema and BL pleural effusions -Currently stable on 2L NC and in no respiratory distress -Continue IV diuresis -Incentive spirometry, prn O2 to Keep SpoO2 at or above 92% (3) Urinary retention: Plan: -Noted on last admission as well, required sims cath placement -Sims was mistakenly removed on the day of discharge last admission, if she requires another sims this should be continued on discharge with Urology follow up -Will continue bladder scans with PVR, sims cath for PVR of 350cc or greater (4) Elevated troponin: Plan: -Initial high sen trop of 41 >Improved compared to 70-80's on last admission -No acute ST segment or T-wave changes on ECG -Patient denies chest discomfort -Likely due to demand from acute CHF exacerbation and hypoxia -Will follow 2 hour repeat high sen trop currently in process -Continue to monitor on tele (5) Chronic kidney disease: Plan: -Cr currently stable -Monitor renal function with IV diuresis -Avoid nephrotoxic agents -Monitor renal function and electrolytes daily (6) Laceration of left index finger: Plan: -Patient was seen in the [facility] ED on 09/23 for left index finger laceration -Patient's laceration was sutured -Per the ED documentation, the patient's stitches should remain in place for 10- 12 prior to stitch removal -Patient's stitches should be removed between 10/03-10/05 (7) Generalized weakness: Plan: -Patient reports generalized weakness and decreased activity since last admission -Likely due to deconditioning and her chronic medical problems -No signs of infection, neuro exam is non-focal -Will consult PT/OT for possible rehab on DC -Fall/aspiration precautions (8) Paroxysmal atrial fibrillation: Plan: -Stable after initial treatment in the ED -Will give her missed am dose of Metoprolol succinate and Eliquis now -Continue metoprolol and eliquis (9) Type 2 diabetes mellitus with neurologic complication, with long-term current use of insulin: Plan: -Monitor BSG ACHS, goal is 110-160 -Start CF 45 and CR 15 ACHS -Normally takes 45 units HS lantus >Will convert to 20 units SQ BID for now with decreased PO intake -Adjust regimen as needed (10) Hypertension: Plan: -Currently with systolics in the 170's -Patient confirms she did not have her am meds prior to ED arrival -Will give am doses of metoprolol and Hydralzine now -Continue metoprolol, hydralazine (11) CAD (coronary artery disease): Plan: -Continue aspirin and statin Plan The patient was discussed with Dr. Tracey at the time of the admission History of Present Illness Chief Complaint: SOB, shakiness Primary Care Provider: MATT Pelletier Patricia Unger is a 83 year-old female with a past medical history of HFpEF, CABG in 2006, CKD, hyperlipidemia, hypercalcemia, type 2 diabetes mellitus, PVD, paroxysmal afib and DVT (on Eliquis) who presented to the [facility] ED via EMS on 10/02/23 with complaints of SOB and feeling shaky. She was reportedly hypoxic for EMS on RA and significantly hypertensive at 240/110. On arrival to the ED she was noted to be hypoxic at 87% on RA, hypertensive at 207/155, tachycardic at 100, but otherwise stable. Labs were significant for a VBG pH of 7.44, pCO2 of 36, and pO2 of 36, Cr of 2.62 (baseline is near 3.0 per last Nephrology note), BNP of 1190 (down from 1389 as of 09/09/23), initial high sen trop of 41, and full respiratory biofire negative. Chest xray was read as 1 Cardiomegaly with evidence of congestive failure. 2. Small pleural effusions with dependent consolidation.. Prior to admission the patient was given 1mg IV Bumex. Patient was recently admitted to [facility] from 09/09/23-09/13/23 for the same complaints. She was noted to be volume overloaded thought to be due to urinary retention leasing to CHF exacerbation and increased sodium intake. A sims catheter was placed on admission and she responded well to IV diuresis. Her Sims catheter was supposed to remain in place at the time of discharge but was removed accidentally on the day of discharge. At the time of the exam the patient was sitting in bed in no acute distress. States that she had been feeling well after last discharge. Starting 09/30 she was experiencing increased SOB and Shakiness. Symptoms lasted from 0800-Noon on 09/30 then resolved. This am symptoms were more severe prompting EMS call. When asked, states she has had poor oral intake over the past 2 weeks, mainly due to lack of appetite. States she has been drinking one glass of water daily and avoiding increased sodium intake. Has been taking her bumex as prescribed and watching her weight daily, has not been significantly increasing. Denies fever, chills, chest pain, cough, hemoptysis, abd pain, nausea, vomiting, diarrhea, dysuria, hematuria, melena, and recent trauma. She is a full code and her daughters would make decisions for her if she cannot make them herself. When asked, she states she has not urinated since receiving 1mg IV Bumex at approximately 0830 this am. Please refer to Dr. Tracey's attestation for any changes to the treatment plan Allergies Allergy/AdvReac Type Severity Reaction Status Date / Time spironolactone AdvReac Severe Hyperkalemi Verified 09/21/23 10:26 a sulfamethoxazole AdvReac Severe SEVERE Verified 09/21/23 10:26 [From Bactrim] VOMITING trimethoprim [From Bactrim] AdvReac Severe SEVERE Verified 09/21/23 10:26 VOMITING JESSICA Inhibitors AdvReac Intermediate ARF Verified 09/21/23 10:26 diclofenac AdvReac Intermediate ankle Verified 09/21/23 10:26 swelling iron AdvReac Intermediate nausea/ Verified 09/21/23 10:26 VOMITING Home Medications Medication Instructions Recorded Confirmed Type cyanocobalamin (vitamin B-12) 1,000 mcg PO QAM 12/28/17 10/02/23 History 1,000 mcg capsule magnesium oxide 400 mg PO BID 12/28/17 10/02/23 History omega 4-bgm-wnr-fish oil 1,000 mg 1 cap PO QPM 12/28/17 10/02/23 History (120 mg-180 mg) capsule (Fish Oil) fexofenadine 60 mg tablet (Gabby 60 mg PO DAILY PRN Allergy Symptoms 10/02/18 10/02/23 History Allergy) pen needle, diabetic 31 gauge x #30 ea 11/22/18 09/21/23 History 5/16" (BD Ultra-Fine Short Pen Needle) aspirin 81 mg tablet,delayed 81 mg PO QPM 07/15/20 10/02/23 History release epoetin jase 2,000 unit/mL 2,000 unit subcut .[id number] 12/02/20 10/02/23 History injection solution (Procrit) insulin aspart U-100 100 unit/mL See Rx Instructions subcut TID #60 08/16/21 10/02/23 Rx (3 mL) subcutaneous pen (Novolog mL FlexPen U-100 Insulin aspart) isosorbide mononitrate 30 mg 30 mg PO QAM #90 tabs 12/25/22 10/02/23 Rx tablet,extended release 24 hr isosorbide mononitrate 60 mg 60 mg PO QAM #90 tabs 12/25/22 10/02/23 Rx tablet,extended release 24 hr hydralazine 100 mg tablet 100 mg PO TID #270 tabs 12/28/22 10/02/23 Rx apixaban 2.5 mg tablet (Eliquis) 2.5 mg PO BID #180 tabs 01/29/23 10/02/23 Rx bumetanide 0.5 mg tablet 0.5 mg PO BID #120 tabs 05/15/23 10/02/23 Rx atorvastatin 40 mg tablet 40 mg PO HS #90 tabs 05/23/23 10/02/23 Rx cilostazol 100 mg tablet 100 mg PO BID #180 tabs 06/05/23 10/02/23 Rx diclofenac sodium 1 % topical gel 2 g topical QID PRN arthritic pain 06/12/23 10/02/23 Rx (Voltaren Arthritis Pain) #100 grams alendronate 70 mg tablet (Fosamax) 70 mg PO WK 06/13/23 10/02/23 History metoprolol succinate 200 mg 200 mg PO BID #180 tabs 06/13/23 10/02/23 Rx tablet,extended release 24 hr hydrocodone 5 mg-acetaminophen 325 0.5 - 1 tab PO Q6H PRN pain #30 09/07/23 10/02/23 Rx mg tablet tabs gabapentin 100 mg capsule 100 mg PO TID 09/09/23 10/02/23 History calcitriol 0.25 mcg capsule 0.25 mcg PO DAILY #90 caps 09/10/23 10/02/23 Rx (Rocaltrol) peg 3350-sod sulf,[id number]-yjr-nht See Rx Instructions PO .COMPLEX #2 09/14/23 10/02/23 Rx 178.7-7.3-0.5-1.12-0.9 gram oral mL soln (Suflave) insulin glargine 100 unit/mL (3 46 unit subcut HS 10/02/23 10/02/23 History mL) subcutaneous pen (Lantus Solostar U-100 Insulin) Past Med/Surg History Problem List (Updated 10/02/23 @ 11:07 by Pavel Olivarez PA-C) Generalized weakness Acute heart failure with preserved ejection fraction Hypoxia (Acute) Laceration of left index finger (Acute) Chronic kidney disease (Acute) Congestive heart failure (Acute) Diarrhea Hypoxia Elevated troponin Urinary retention Fungal infection of skin of abdomen Swelling of both lower extremities Volume overload Carpal tunnel syndrome, left Paresthesia of right lower extremity Neuroforaminal stenosis of lumbosacral spine Lumbosacral spondylosis Paroxysmal atrial fibrillation Paresthesia (Acute) Brain TIA (Acute) (HFpEF) heart failure with preserved ejection fraction Acute diastolic CHF (congestive heart failure) (Acute) DVT (deep venous thrombosis) Right upper leg DVT -- March 2020 -- placed on eliquis.-NO ISSUES SINCE Recent u/s from 07/07/20= shows continued evidence of right common femoral DVT. Right knee DJD PVD (peripheral vascular disease) on Pletal Malignant neoplasm of upper-outer quadrant of right breast in female, estrogen receptor positive (Chronic) Vitamin D deficiency (Chronic) Type 2 diabetes mellitus with neurologic complication, with long-term current use of insulin (Acute) Obesity (BMI 35.0-39.9 without comorbidity) (Acute) Dyslipidemia (high LDL; low HDL) (Acute) Dysesthesia (Acute) History of total left knee replacement Thickened endometrium S/P right colectomy Status post hysteroscopy CKD (chronic kidney disease), stage IV Hyperparathyroidism HOPPER (dyspnea on exertion) Osteoporosis Chronic anticoagulation History of left knee replacement History of colon cancer 2020- adenocarcinoma Edema (Acute) Hypertension S/P laparoscopic colectomy (08/26/20) Laparoscopic Extended Hemicolectomy, Extensive enterolysis - Sohail Quiroga, DO History of coronary artery bypass graft 3 [place] 2006[place] [place] CAD (coronary artery disease) s/p 3 vessel CABG 2006 Medical History New onset a-fib Small bowel obstruction Ileus Encounter for pre-operative examination Anemia Hx of breast cancer Lumbar spinal stenosis Peripheral vascular disease Hx of acute respiratory failure Osteoarthritis Venous stasis dermatitis Chronic kidney disease Hyperlipidemia Surgical History Hx of colonoscopy Hx of lymph node excision Status post dilation and curettage History of esophagogastroduodenoscopy (EGD) S/P epidural steroid injection History of partial mastectomy of right breast Status post trigger finger release History of total knee replacement History of adverse response to anesthesia History of Moh's micrographic surgery for skin cancer S/P tendon repair History of cholecystectomy History of dilatation and curettage History of bilateral tubal ligation History of cataract surgery History of cardiac cath Family History Mother No problems noted. Father No problems noted. Sister No problems noted. Sister No problems noted. Sister No problems noted. Sister No problems noted. Sister No problems noted. Daughter Myocardial infarction Breast cancer Family history of reaction to anesthesia Daughter Heart disease Other No family history of adverse response to anesthesia Denies family history of Ovarian cancer Prostate cancer Colorectal cancer Social History Smoking Status: Never smoker Second Hand Exposure: Yes; Do You Dip or Chew Tobacco: No; Tobacco Cessation Education Requested by Patient: No Hx Alcohol Use: Yes Alcohol type: wine Hx Substance Use: No Preferred Language: German Communication Ability: Effective Visual Impairment: Limited Hearing Ability: Normal Conduit Bender Required: No Beliefs That Will Affect Care: None marital status: / Current Living Situation: Alone current occupational status: retired How many Children do You have: 2 Feels Safe at Home: Yes Safety Concerns: Feels Safe At This Time Childhood Exposure to Second-Hand Smoke: No Diet: low salt and regular caffeine: No during the past year weight has: remained stable Dental Care, Regularly: No Physical Activity Frequency: 3-4 Times per Week Seatbelt Use: always Sunscreen Use: Yes Do you think of yourself as: straight/heterosexual Gender Identity: Female Assistive Devices: Cane, Denture - Upper, Denture - Lower and Glasses Physical Exam Physical Exam: Physical Exam: General: In no acute distress, stated age, well-nourished, chronically ill- appearing but non-toxic HEENT: Normocephalic, atraumatic, no scleral icterus, pupils around round, symmetrical, and reactive to light, moist mucus membranes, +JVD, trachea midline, no thyromegaly Chest/Pulm: No respiratory distress, symmetrical chest expansion, decreased breath sounds in the BL lower lung mora with crackles in the BL mid lung mora, CTA in the BL upper lung mora Cardiac: irregular rate and rhythm, 3/6 systolic murmur noted Abdomen: Negative for ascites and bruising, normoactive bowel sounds, soft, non-tender to palpation throughout Musculoskeletal: Symmetrical and without signs of acute trauma, upper and lower extremities with full ROM, no atrophy, spasticity, or flaccidity Extremities: Radial, dorsalis pedis, and posterior tibial pulses are intact and symmetrical, 1-2+ edema noted in the BL LE's Skin: Warm, dry, no rashes , lesions, or scars noted, signs of chronic venous insufficiency in the BL LE's without signs of infection Neuro: Alert and oriented to person, place, month, year, and president, no focal defects, no tremors noted Psych: No acute distress, calm and cooperative during the exam Results & Data Results & Data Vital Signs (Past 12 Hours) Vital Signs Temp Pulse Resp BP Pulse Ox O2 Del Method O2 Flow Rate 10/02/23 08:39 Nasal Cannula 2 10/02/23 08:37 Nasal Cannula 2 10/02/23 08:37 Nasal Cannula 2 10/02/23 08:33 Nasal Cannula 2 10/02/23 08:30 100 H 10/02/23 08:23 37.4 C 97 H 22 207/155 H 87 L Room Air Laboratory Results Abnormal lab results 10/02/23 Range/Units 08:32 RBC 3.16 L (4.20-5.40) M/uL Hgb 10.3 L (12.0-16.0) g/dl Hct 30.4 L (37.0-47.0) % RDW Std Deviation 63.8 H (36.4-46.3) fL RDW Coeff of Kirsty 17.9 H (11.5-14.5) % Lymph # (Auto) 0.50 L (1.20-3.40) K/uL [place] # (Auto) 1.05 H (0.11-0.59) K/uL VBG pH 7.44 H (7.36-7.41) VBG pCO2 36 L (38-50) mmHg BUN 34 H (6-23) mg/dl Creatinine 2.62 H (0.6-1.2) mg/dl Glucose 126 H (70-99(Fasting)) mg/dl Total Bilirubin 2.0 H (0.2-1.0) mg/dl Troponin I High Sens 41.4 H (0-14) pg/ml B-Natriuretic Peptide 1190 H (0-100) pg/ml TSH 4.787 H (0.300-4.500) uIu/ml Diagnostic Findings Chest X-Ray 10/02/23 08:28 SINGLE VIEW CHEST CLINICAL HISTORY: Generalized weakness. Dyspnea. FINDINGS: An AP, portable, upright chest radiograph is compared to study dated 09/09/2023 and correlated with chest CT dated 01/12/2022. The patient is status post midline sternotomy. The heart is enlarged noting atherosclerotic calcification of the thoracic aorta. There is pulmonary vascular congestion. There are small pleural effusions with dependent consolidation. No pneumothorax is seen. The skeletal structures are osteopenic. The bony thorax is grossly intact. IMPRESSION: 1 Cardiomegaly with evidence of congestive failure. 2. Small pleural effusions with dependent consolidation. ACT 112: Negative or not required by law. Electronically signed by: Maxime Gonzalez M.D. 10/02/2023 8:49 AM ECG Additional Comments: Atrial fibrillation vs. Sinus rhythm with frequent Premature atrial complexes Left axis deviation Incomplete right bundle branch block Possible Old Septal infarct Abnormal ECG When compared with ECG of 09-SEP-2023 05:46, Borderline Criteria for Septal infarct is now Present Confirmed by Andi Botello ([id number]) on 10/02/2023 8:42:29 AM Code Status & VTE Plan Code Status Full code VTE Prophylaxis Plan VTE Prophylaxis will be ordered: Yes Supervising Physician Co-Signing Physician Notes I personally saw and examined the patient. I verified all anthony points and agree with Pavel Olivarez PA-C with the following exceptions and/or additions: 83 year old female presents to the ER with shortness of breath and lower extremity swelling O/E Irregular rhythm, regular rate, systolic murmur, Chest bibasal crackles without wheezing, Abdo SNT, no CVA tenderness, trace pedal edema A/P Acute HFpEF - no urine retention on bladder scan on this admission. Increase Bumex to 1mg IV BID. T2DM - previously hypoglycemic on 20 units BID Lantus last admission, will reduce dose from 45 units HS to 15 units HS PG Care Time/CCT Total # of Minutes Spent Total Time Spent with Patient: Total time spent is greater than 50% in coordination of care (as documented) at patient's floor/unit and/or counseling patient: Coding [place] [id number] INT INP/OBS CARE 3/75MIN Patient Type Established Medical Decision Making High Complexity Diagnoses Acute heart failure with preserved ejection fraction I50.31 Hypoxia R09.02 Urinary retention R33.9 Elevated troponin R79.89 Chronic kidney disease N18.9 Chronic kidney disease stage: unspecified stage Laceration of left index finger S61.211A Damage to nail status: without damage Encounter type: initial encounter Foreign body presence: without foreign body Generalized weakness R53.1 Paroxysmal atrial fibrillation I48.0 Type 2 diabetes mellitus with diabetic neuropathy, with long-term current use of insulin E11.40; Z79.4 Diabetes mellitus complication detail: with unspecified neuropathy Essential hypertension I10 Hypertension type: essential hypertension Coronary artery disease involving elim ira coronary artery of elim ira heart without angina pectoris I25.10 Associated angina: without angina Coronary Disease-Associated Artery/Lesion type: elim ira artery Cahto vs. transplanted heart: elim ira heart (5) Chronic kidney disease Chronic kidney disease stage: unspecified stage Qualified Code(s): N18.9 - Chronic kidney disease, unspecified (6) Laceration of left index finger Damage to nail status: without damage Encounter type: initial encounter Foreign body presence: without foreign body Qualified Code(s): S61.211A - Laceration without foreign body of left index finger without damage to nail, initial encounter (9) Type 2 diabetes mellitus with neurologic complication, with long-term current use of insulin Diabetes mellitus complication detail: with unspecified neuropathy Qualified Code(s): E11.40 - Type 2 diabetes mellitus with diabetic neuropathy, unspecified; Z79.4 - predatory animal exterminator (current) use of insulin (10) Hypertension Hypertension type: essential hypertension Qualified Code(s): I10 - Essential (primary) hypertension (11) CAD (coronary artery disease) Associated angina: without angina Coronary Disease-Associated Artery/Lesion type: elim ira artery Cahto vs. transplanted heart: elim ira heart Qualified Code(s): I25.10 - Atherosclerotic heart disease of elim ira coronary artery without angina pectoris
[2023-10-02] MEDS ORDERED: ACETAMINOPHEN 325 MG TAB PO PRN (12:02)
[2023-10-02] MEDS: HYDROCODONE/ACETAMOPHEN 5/325MG TAB PO PRN (12:42)
[2023-10-02] MEDS: INSULIN ASPART PER UNIT CHARGE SC SCH (12:43)
[2023-10-02] MEDS: GABAPENTIN 100 MG CAP PO SCH (13:54)
[2023-10-02] MEDS: hydrALAZINE TAB 50 MG TAB PO SCH (13:54)
[2023-10-02] MEDS: BUMETANIDE 1 MG in SYRINGE 0 ML IV SCH (16:21)
[2023-10-02] MEDS ORDERED: BUMETANIDE 0.5 MG in SYRINGE 0 ML IV SCH (17:00)
[2023-10-02 17:11] LABS: Appearance Urine Clear (Clear); Bacteria Urine Automated 4+ (None Seen); Bilirubin Urine Negative (Negative); Blood Urine Negative (Negative); Color Urine Yellow; Glucose Urine UA Negative (Negative); Ketones Urine Negative (Negative); Leukocyte Esterase Urine 1+ (Negative); Nitrite Urine Positive (Negative); Protein Urine Negative (Negative); RBC Urine Automated 0-2 /hpf (0-2); Urobilinogen Urine Negative (Negative); pH Urine 6.5 (4.5-7.5)
[2023-10-02] MEDS: cefTRIAXone SODIUM 2,000 MG/50 ML BAG IV SCH (18:15)
[2023-10-02] MEDS: ASPIRIN 81 MG ECTAB PO SCH (19:45)
[2023-10-02] MEDS: ATORVASTATIN 40 MG TAB PO SCH (19:45)
[2023-10-02] MEDS: MAGNESIUM OXIDE 400 MG TAB PO SCH (19:46)
[2023-10-02] MEDS: METOPROLOL SUCC 50MG EXT REL TAB PO SCH (19:46)
[2023-10-02] MEDS: cilostazoL 100 MG TAB PO SCH (19:46)
[2023-10-02] MEDS: APIXABAN 2.5 MG TAB PO SCH (19:46)
[2023-10-02] MEDS: LANTUS PER UNIT CHARGE SQ SCH (20:34)
[2023-10-02] MEDS ORDERED: LANTUS PER UNIT CHARGE SQ SCH ×2 (21:00)
[2023-10-02] MEDS: DICLOFENAC SOD 1% GEL 100 GM TUBE EXT PRN (23:27)
[2023-10-03 08:25] LABS: Basophils # (auto) 0.01 K/uL (0.00-0.20); Basophils % (auto) 0.1 %; Eosinophils # (auto) 0.18 K/uL (0.00-0.50); Eosinophils % (auto) 2.6 %; Hematocrit (blood only) 29.2 % (37.0-47.0); Hemoglobin 9.4 g/dl (12.0-16.0); Immature Granulocytes # (auto) 0.03 K/uL (0.01-0.20); Immature Granulocytes % (auto) 0.4 %; Lymphocytes # (auto) 0.43 K/uL (1.20-3.40); Lymphocytes % (auto) 6.2 %; Mean Corpuscular Hemoglobin 31.2 pg (25.0-34.0); Mean Corpuscular Hgb Conc 32.2 g/dL (32.0-36.0); Mean Platelet Volume 10.1 fL (9.4-12.4); Monocytes # (auto) 1.06 K/uL (0.11-0.59); Monocytes % (auto) 15.3 %; Neutrophils # (auto) 5.22 K/uL (1.40-6.50); Neutrophils % (auto) 75.4 %; Platelet Count 209 K/uL (130-400); RDW Coefficient of Variation 17.9 % (11.5-14.5); Red Blood Count 3.01 M/uL (4.20-5.40); White Blood Count 6.93 K/ul (4.8-10.8)
[2023-10-03 08:29] LABS: BUN Creatinine Ratio 14.7 (10-20); Calcium 8.6 mg/dl (8.6-10.3); Creatinine Clr Calc Pharmacy 19.3 ml/min; Est GFR (African American) 21.3 ml/min; Est GFR (Non-African American) 18.4 ml/min; Potassium 4.3 mmol/L (3.5-5.1)
[2023-10-03 08:37] LABS: Troponin I High Sensitivity 40.2 pg/ml (0-14)
[2023-10-03] MEDS: LANTUS PER UNIT CHARGE SQ SCH (08:49)
[2023-10-03] MEDS: ISOSORBIDE MONO EXTENDED REL 60 MG TABCR PO SCH (08:51)
[2023-10-03] MEDS: CALCITRIOL 0.25 MCG CAPSULE PO SCH (08:51)
[2023-10-03] MEDS: ISOSORBIDE MONO EXTENDED REL 30 MG TABCR PO SCH (08:51)
[2023-10-03] MEDS: BUMETANIDE 2 MG in SYRINGE 0 ML IV SCH (09:01)
--- NOTE | 2023-10-03 10:40 | Hospitalist Progress Note ---
Date of Service October 03, 2023 Assessment & Plan (1) Acute heart failure with preserved ejection fraction: Plan: Continue Bumex parenteral diuresis at a higher dose due to underlying chronic kidney disease stage IV. Monitor intake and output. Serial labs. Telemetry. Recent cardiac echo completed earlier this year reveals mild LVH with normal ejection fraction. (2) Hypoxia: Plan: Acute hypoxic respiratory failure present on admission. Continue oxygen per nasal cannula to maintain saturation greater than 90%. Wean off as tolerated. (3) Urinary retention: Plan: Noted on last admission as well, required sims cath placement. Sims catheter was mistakenly removed on the day she was discharged during her last admission. Hopefully this will not have to be replaced. (4) Elevated troponin: Plan: Mild. No acute EKG changes. No chest pain. No evidence of acute coronary syndrome. (5) Chronic kidney disease: Plan: Stage IV. Monitor intake and output. Serial labs (6) Laceration of left index finger: Plan: seen in the [facility] ED on 09/23 for left index finger laceration which was sutured. Sutures will be removed between October 03 and October 05 (7) Generalized weakness: Plan: Supportive care. No evidence of CVA. OT and PT assessments. Treat underlying CHF (8) Paroxysmal atrial fibrillation: Plan: Currently in normal sinus rhythm. Continue metoprolol and Eliquis. Telemetry (9) Type 2 diabetes mellitus with neurologic complication, with long-term current use of insulin: Plan: ADA diet. Basal insulin therapy. Sliding scale coverage as necessary (10) Hypertension: Plan: Elevated on admission. Now stable. Will follow. Continue current medical management (11) CAD (coronary artery disease): Plan: Stable. Continue aspirin and statin Plan Hopeful discharge to home soon within the next day or 2 Admission and Anticipated Discharge Date Admission Date: October 02, 2023 Subjective Alert and oriented. No distress. Bumex dosage uptitrated due to chronic kidney disease stage IV. Oxygen requirement is at 2 L/min per nasal cannula. Will repeat portable chest x-ray again tomorrow, October 03. She recently had a cardiac echo earlier this year which revealed mild LVH and normal ejection fraction. This will not be repeated. Blood pressure is improved at 138/64. Creatinine 2.6 today, October 02 Review of Systems 2 Review of Systems: Constitutional-no fever or chills ENT-no blurred vision, no double vision, no epistaxis, no sore throat Respiratory-no cough, no wheezing. Shortness of breath with minimal exertion Cardiac-no palpitations, no chest pain, no syncope GI-no nausea, vomiting, diarrhea, melena, hematochezia -no urinary retention, no urinary incontinence, no dysuria, no hematuria Musculoskeletal-no joint pain, no muscle tenderness Skin-no bruising, no rashes, no pruritus Neuro-no isolated weakness, no paresthesia, no weakness Psych-no depression, no anxiety Physical Exam 2 Physical Exam: General-alert and oriented x3, no fever, no chills HEENT-head atraumatic and normocephalic, pupils equal and reactive to light, extraocular muscles intact Neck-no lymphadenopathy or thyromegaly, trachea midline Chest-bibasilar inspiratory rales. No rhonchi. Cardiac-regular rate and rhythm, normal S1 and S2 Abdomen-normal bowel sounds, no hepatosplenomegaly Extremities-no cyanosis, clubbing. 1+ edema bilaterally below the knees. Left wrist in a soft splint due to underlying carpal tunnel syndrome Neuro-cranial nerves II through XII intact, motor and sensory function within normal limits, strength symmetrical with generalized weakness, no focal deficits Psych-normal affect, normal mood Results & Data Results & Data Vital Signs (Past 12 Hours) Vital Signs Temp Pulse Pulse Pulse Resp BP Pulse Ox 10/03/23 10:20 10/03/23 07:55 37.4 C 82 18 181/80 H 97 10/03/23 07:50 72 10/03/23 03:22 36.7 C 64 16 138/64 92 10/03/23 00:32 75 10/02/23 23:01 36.9 C 81 18 147/63 H 95 O2 Del Method O2 Flow Rate 10/03/23 10:20 Nasal Cannula 2 10/03/23 07:55 Nasal Cannula 2 10/03/23 07:50 10/03/23 03:22 Nasal Cannula 2 10/03/23 00:32 10/02/23 23:01 Nasal Cannula 2 Laboratory Results 10/03/23 07:31 10/03/23 07:31 PG Care Time/CCT Total # of Minutes Spent Total Time Spent with Patient: Total time spent is greater than 50% in coordination of care (as documented) at patient's floor/unit and/or counseling patient: Coding Level of Care Code 16442 SUB INP/OBS CARE 50MIN Diagnoses Acute heart failure with preserved ejection fraction I50.31 Hypoxia R09.02 Urinary retention R33.9 Elevated troponin R79.89 Chronic kidney disease N18.9 Chronic kidney disease stage: unspecified stage Laceration of left index finger S61.211A Damage to nail status: without damage Encounter type: initial encounter Foreign body presence: without foreign body Generalized weakness R53.1 Paroxysmal atrial fibrillation I48.0 Type 2 diabetes mellitus with diabetic neuropathy, with long-term current use of insulin E11.40; Z79.4 Diabetes mellitus complication detail: with unspecified neuropathy Essential hypertension I10 Hypertension type: essential hypertension Coronary artery disease involving [place] coronary artery of [place] heart without angina pectoris I25.10 Coronary Disease-Associated Artery/Lesion type: [place] artery [place] vs. transplanted heart: [place] heart Associated angina: without angina (5) Chronic kidney disease Chronic kidney disease stage: unspecified stage Qualified Code(s): N18.9 - Chronic kidney disease, unspecified (6) Laceration of left index finger Damage to nail status: without damage Encounter type: initial encounter F oreign body presence: without foreign body Qualified Code(s): S61.211A - Laceration without foreign body of left index finger without damage to nail, initial encounter (9) Type 2 diabetes mellitus with neurologic complication, with long-term current use of insulin Diabetes mellitus complication detail: with unspecified neuropathy Qualified Code(s): E11.40 - Type 2 diabetes mellitus with diabetic neuropathy, unspecified; Z79.4 - MCFP (current) use of insulin (10) Hypertension Hypertension type: essential hypertension Qualified Code(s): I10 - Essential (primary) hypertension (11) CAD (coronary artery disease) Coronary Disease-Associated Artery/Lesion type: [place] artery [place] vs. transplanted heart: [place] heart Associated angina: without angina Qualified Code(s): I25.10 - Atherosclerotic heart disease of [place] coronary artery without angina pectoris
[2023-10-04 07:18] LABS: Anion Gap 7 (3-11); BUN Creatinine Ratio 14.6 (10-20); Blood Urea Nitrogen 41 mg/dl (6-23); Calcium 8.2 mg/dl (8.6-10.3); Carbon Dioxide 25 mmol/L (21-32); Chloride 102 mmol/L (98-107); Creatinine Clr Calc Pharmacy 16.4 ml/min; Est GFR (African American) 17.5 ml/min; Est GFR (Non-African American) 15.1 ml/min; Glucose 102 mg/dl (70-99(Fasting)); Sodium 134 mmol/L (136-145)
--- NOTE | 2023-10-04 08:08 | XRay Report ---
XR chest 1V portable HISTORY: Congestive heart failure. COMPARISON: Chest 10/02/2023. FINDINGS: No pneumothorax. Trace bilateral pleural effusions and mild congestive change have improved . Bibasilar densities have also improved. The heart remains enlarged. There are poststernotomy change s. No acute fractures. IMPRESSION: Interval improvement in the mild congestive change and trace bilateral pleural effusions. ACT 112: Negative or not required by law. Electronically signed by: Tulio Escobar M.D. 10/04/2023 8:06 AM
[2023-10-04 08:38] LABS: Basophils # (auto) 0.02 K/uL (0.00-0.20); Basophils % (auto) 0.4 %; Eosinophils # (auto) 0.25 K/uL (0.00-0.50); Eosinophils % (auto) 4.8 %; Hematocrit (blood only) 27.9 % (37.0-47.0); Hemoglobin 8.8 g/dl (12.0-16.0); Immature Granulocytes # (auto) 0.02 K/uL (0.01-0.20); Immature Granulocytes % (auto) 0.4 %; Lymphocytes % (auto) 7.8 %; Mean Corpuscular Hemoglobin 30.6 pg (25.0-34.0); Mean Corpuscular Hgb Conc 31.5 g/dL (32.0-36.0); Mean Corpuscular Volume 96.9 fL (80.0-100.0); Mean Platelet Volume 9.8 fL (9.4-12.4); Monocytes # (auto) 0.76 K/uL (0.11-0.59); Monocytes % (auto) 14.7 %; Neutrophils # (auto) 3.71 K/uL (1.40-6.50); Neutrophils % (auto) 71.9 %; Platelet Count 197 K/uL (130-400); RDW Coefficient of Variation 17.7 % (11.5-14.5); RDW Standard Deviation 62.7 fL (36.4-46.3); Red Blood Count 2.88 M/uL (4.20-5.40); White Blood Count 5.16 K/ul (4.8-10.8)
[2023-10-04] MEDS: BUMETANIDE 1 MG in SYRINGE 0 ML IV SCH (11:22)
[2023-10-04 11:50] VITALS: BP 130/56; RESP 18; TEMP 98.6; O2SAT 92
--- NOTE | 2023-10-04 12:39 | Discharge Summary ---
Date of Service October 04, 2023 Admission HPI Per Admitting Provider Patricia Unger is a 83 year-old female with a past medical history of HFpEF, CABG in 2006, CKD, hyperlipidemia, hypercalcemia, type 2 diabetes mellitus, PVD, paroxysmal afib and DVT (on Eliquis) who presented to the [facility] ED via EMS on 10/02/23 with complaints of SOB and feeling shaky. She was reportedly hypoxic for EMS on RA and significantly hypertensive at 240/110. On arrival to the ED she was noted to be hypoxic at 87% on RA, hypertensive at 207/155, tachycardic at 100, but otherwise stable. Labs were significant for a VBG pH of 7.44, pCO2 of 36, and pO2 of 36, Cr of 2.62 (baseline is near 3.0 per last Nephrology note), BNP of 1190 (down from 1389 as of 09/09/23), initial high sen trop of 41, and full respiratory biofire negative. Chest xray was read as 1 Cardiomegaly with evidence of congestive failure. 2. Small pleural effusions with dependent consolidation.. Prior to admission the patient was given 1mg IV Bumex. Patient was recently admitted to [facility] from 09/09/23-09/13/23 for the same complaints. She was noted to be volume overloaded thought to be due to urinary retention leasing to CHF exacerbation and increased sodium intake. A sims catheter was placed on admission and she responded well to IV diuresis. Her Sims catheter was supposed to remain in place at the time of discharge but was removed accidentally on the day of discharge. At the time of the exam the patient was sitting in bed in no acute distress. States that she had been feeling well after last discharge. Starting 09/30 she was experiencing increased SOB and Shakiness. Symptoms lasted from 0800-Noon on 09/30 then resolved. This am symptoms were more severe prompting EMS call. When asked, states she has had poor oral intake over the past 2 weeks, mainly due to lack of appetite. States she has been drinking one glass of water daily and avoiding increased sodium intake. Has been taking her bumex as prescribed and watching her weight daily, has not been significantly increasing. Denies fever, chills, chest pain, cough, hemoptysis, abd pain, nausea, vomiting, diarrhea, dysuria, hematuria, melena, and recent trauma. She is a full code and her daughters would make decisions for her if she cannot make them herself. When asked, she states she has not urinated since receiving 1mg IV Bumex at approximately 0830 this am. Please refer to Dr. Tracey's attestation for any changes to the treatment plan Principal Diagnosis Acute on chronic diastolic CHF, acute hypoxic respiratory failure, elevated troponin without acute coronary syndrome Discharge Exam General-alert and oriented x3, no fever, no chills HEENT-head atraumatic and normocephalic, pupils equal and reactive to light, extraocular muscles intact Neck-no lymphadenopathy or thyromegaly, trachea midline Chest-bibasilar inspiratory rales. No rhonchi. Cardiac-regular rate and rhythm, normal S1 and S2 Abdomen-normal bowel sounds, no hepatosplenomegaly Extremities-no cyanosis, clubbing. 1+ edema bilaterally below the knees. Left wrist in a soft splint due to underlying carpal tunnel syndrome Neuro-cranial nerves II through XII intact, motor and sensory function within normal limits, strength symmetrical with generalized weakness, no focal deficits Psych-normal affect, normal mood Discharge Data Allergies Allergy/AdvReac Type Severity Reaction Status Date / Time spironolactone AdvReac Severe Hyperkalemi Verified 09/21/23 10:26 a sulfamethoxazole AdvReac Severe SEVERE Verified 09/21/23 10:26 [From Bactrim] VOMITING trimethoprim [From Bactrim] AdvReac Severe SEVERE Verified 09/21/23 10:26 VOMITING JESSICA Inhibitors AdvReac Intermediate ARF Verified 09/21/23 10:26 diclofenac AdvReac Intermediate ankle Verified 09/21/23 10:26 swelling iron AdvReac Intermediate nausea/ Verified 09/21/23 10:26 VOMITING Consultations 10/02/23 10:22 ED Decision to Admit Stat Hospital Course (1) Acute heart failure with preserved ejection fraction: Treated while hospitalized with Bumex parenteral diuresis. Improved. Monitor intake and output. Serial labs. Telemetry. Recent cardiac echo completed earlier this year reveals mild LVH with normal ejection fraction. (2) Hypoxia: Acute hypoxic respiratory failure present on admission. Resolved. She is now on room air (3) Urinary retention: Noted on last admission as well, required sims cath placement. Sims catheter was mistakenly removed on the day she was discharged during her last admission. This did not need to be replaced during this hospital stay (4) Elevated troponin: Mild. No acute EKG changes. No chest pain. No evidence of acute coronary syndrome. (5) Chronic kidney disease: Stage IV. Monitor intake and output. Serial labs (6) Laceration of left index finger: seen in the [facility] ED on 09/23 for left index finger laceration which was sutured. Sutures will be removed between October 03 and October 05 (7) Generalized weakness: Supportive care. No evidence of CVA. OT and PT both recommend IPR placement but she adamantly refuses to consider it. She states she will go home with home health services. (8) Paroxysmal atrial fibrillation: Currently in normal sinus rhythm. Continue metoprolol and Eliquis. Telemetry (9) Type 2 diabetes mellitus with neurologic complication, with long-term current use of insulin: ADA diet. Basal insulin therapy. Sliding scale coverage as necessary (10) Hypertension: Elevated on admission. Now stable. Will follow. Continue current medical management (11) CAD (coronary artery disease): Stable. Continue aspirin and statin Plan Home with home health services today, October 03. 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 machine operator Total Time Total Time Spent Total Time Spent (In Minutes): 45 minutes Discharge Plan Discharge Items Patient Disposition: Home - Home Health Services Reason For Visit: HYPOXIA, VOLUME OVERLOAD, ELEVATED TROP Discharge Diagnosis: Acute on chronic diastolic congestive heart failure, acute hypoxic respiratory failure, elevated troponin without acute coronary syndrome Activity: Resume your previous activity Non-emergency contact: Primary Care Provider and Item Processor Call non-emergency contact if: your symptoms worsen Follow-up/Referrals: Isaura Rashid CRNP [Primary Care Provider] - Diet: Carb Consistent or DM2 and Heart Healthy Addtl Attending Provider Instructions: All medications remain the same. Follow-up with your perforating machine operator and byproducts supervisor as soon as possible Pending Studies at Discharge: No Stand-Alone Forms: [email or web address], Smoking Cessation Medications and DC Order Prescriptions: Continued Procrit 2,000 unit/mL solution 2,000 unit subcut .C0ykxky insulin aspart U-100 [Novolog FlexPen U-100 Insulin] 100 unit/mL (3 mL) insulin pen See Rx Instructions SQ TID Qty: 60 3RF Rx Instructions: use per sliding scale up to 60 units daily SQ isosorbide mononitrate 60 mg tablet extended release 24 hr 60 mg PO QAM Qty: 90 3RF Rx Instructions: TOTAL DOSE 90 MG--TAKES WITH 30 MG TAB. isosorbide mononitrate 30 mg tablet extended release 24 hr 30 mg PO QAM Qty: 90 3RF Rx Instructions: TOTAL DOSE 90 MG--TAKES WITH 60 MG TAB. hydralazine 100 mg tablet 100 mg PO TID Qty: 270 3RF bumetanide 0.5 mg tablet 0.5 mg PO BID Qty: 120 3RF atorvastatin 40 mg tablet 40 mg PO HS Qty: 90 3RF cilostazol 100 mg tablet 100 mg PO BID Qty: 180 3RF Rx Instructions: TAKE 1 TABLET TWICE A DAY hydrocodone-acetaminophen 5-325 mg tablet 0.5 - 1 tab PO Q6H PRN (Reason: pain) Qty: 30 0RF calcitriol [Rocaltrol] 0.25 mcg capsule 0.25 mcg PO DAILY Qty: 90 3RF Suflave 178.7-7.3-0.5 gram recon soln See Rx Instructions PO .COMPLEX Qty: 2 0RF Rx Instructions: HAS NOT USED YET; PROCEDURE POSTPONED orally; TAKE FIRST DOSE AT 6 PM AND SECOND DOSE 6 HOURS PRIOR TO PROCEDURE BIN: [id number] PCN: [id number] GROUP: [id number] aspirin 81 mg tablet,delayed release (DR/EC) 81 mg PO QPM Eliquis 2.5 mg tablet 2.5 mg PO BID Qty: 180 3RF Rx Instructions: Stop apixiban 5 mg BID (DME) pen needle, diabetic [BD Ultra-Fine Short Pen Needle] 31 gauge x 5/16" needle See Dose Instructions .ROUTE .MEDSUPPLY Qty: 30 Rx Instructions: use 1 needle 4 x daily metoprolol succinate 200 mg tablet extended release 24 hr 200 mg PO BID Qty: 180 3RF omega 3-dwt-vjn-fish oil [Fish Oil] 1,000 mg (120 mg-180 mg) Capsule 1 cap PO QPM cyanocobalamin (vitamin B-12) 1,000 mcg Capsule 1,000 mcg PO QAM magnesium oxide 400 mg Capsule 400 mg PO BID fexofenadine [Gabby Allergy] 60 mg tablet 60 mg PO DAILY PRN (Reason: Allergy Symptoms) diclofenac sodium [Voltaren Arthritis Pain] 1 % gel 2 g topical QID PRN (Reason: arthritic pain ) Qty: 100 3RF Rx Instructions: apply to single elbow, wrist or hand; for hand includes palm/fingers/back of hand alendronate [Fosamax] 70 mg tablet 70 mg PO WK Rx Instructions: SUNDAYS gabapentin 100 mg capsule 100 mg PO TID Rx Instructions: 100 mg orally; 1 cap PO QHS x3 days, then 1 cap in AM and 1 QHS x3 days, then TID; insulin glargine [Lantus Solostar U-100 Insulin] 100 unit/mL (3 mL) insulin pen 46 unit subcut HS Discharge Orders: Discharge Order- CHF (Routine); Ordered 10/04/23 Ordered By: Kings Enriquez Admission Data Admit Date/Time: 10/02/23 10:36 Attending Provider: Kings Enriquez Admit Provider: Tom Tracey Primary Care Provider: Isaura Rashid Other Providers: Tom Tracey; [facility] Fax Coding Level of Care Code 56196 INP/OBS DISCH >30 MIN Diagnoses Acute heart failure with preserved ejection fraction I50.31 Hypoxia R09.02 Urinary retention R33.9 Elevated troponin R79.89 Chronic kidney disease N18.9 Chronic kidney disease stage: unspecified stage Laceration of left index finger S61.211A Damage to nail status: without damage Encounter type: initial encounter Foreign body presence: without foreign body Generalized weakness R53.1 Paroxysmal atrial fibrillation I48.0 Type 2 diabetes mellitus with diabetic neuropathy, with long-term current use of insulin E11.40; Z79.4 Diabetes mellitus complication detail: with unspecified neuropathy Essential hypertension I10 Hypertension type: essential hypertension Coronary artery disease involving [place] coronary artery of [place] heart without angina pectoris I25.10 Coronary Disease-Associated Artery/Lesion type: [place] artery [place] vs. transplanted heart: [place] heart Associated angina: without angina
[2023-10-04 13:45] VITALS: PULSE 64
[2023-10-04] MEDS ORDERED: BUMETANIDE 1 MG in SYRINGE 0 ML IV SCH (17:00)
== END 2023-10-04 14:41 | disposition home health service (06) | DRG 291 ==
LOC: ED 08:20 → SUATTDRO 10:36 → 2N 10:36

== ENCOUNTER 2024-01-17 14:02 | Inpatient (IN) ==
--- NOTE | 2024-01-17 15:28 | XRay Report ---
XR chest 1V portable HISTORY: 83 years-old Female weakness acute weakness COMPARISON: 10/04/2023 TECHNIQUE: AP view of the chest FINDINGS: Cardiac silhouette is enlarged. Median sternotomy. Atherosclerosis of the aorta. Pulmonary vascular c ongestion with trace pleural effusions and mild bibasilar atelectasis redemonstrated. No pneumothorax . Bones appear grossly intact. IMPRESSION: 1. Cardiomegaly with pulmonary vascular congestion. 2. Trace pleural effusions. ACT 112: Negative or not required by law. The above report was generated using voice recognition software. It may contain grammatical, syntax o r spelling errors. Electronically signed by: Pancho Alvarado M.D. 01/17/2024 3:26 PM
[2024-01-17 15:34] LABS: Basophils # (auto) 0.02 K/uL (0.00-0.20); Basophils % (auto) 0.4 %; Eosinophils # (auto) 0.14 K/uL (0.00-0.50); Eosinophils % (auto) 3.1 %; Hematocrit (blood only) 25.9 % (37.0-47.0); Hemoglobin 8.3 g/dl (12.0-16.0); Immature Granulocytes # (auto) 0.02 K/uL (0.01-0.20); Immature Granulocytes % (auto) 0.4 %; Lymphocytes # (auto) 0.61 K/uL (1.20-3.40); Lymphocytes % (auto) 13.3 %; Mean Corpuscular Hemoglobin 32.3 pg (25.0-34.0); Mean Corpuscular Volume 100.8 fL (80.0-100.0); Mean Platelet Volume 9.7 fL (9.4-12.4); Monocytes # (auto) 0.67 K/uL (0.11-0.59); Monocytes % (auto) 14.6 %; Neutrophils # (auto) 3.12 K/uL (1.40-6.50); Neutrophils % (auto) 68.2 %; Platelet Count 180 K/uL (130-400); RDW Coefficient of Variation 14.9 % (11.5-14.5); RDW Standard Deviation 54.1 fL (36.4-46.3); Red Blood Count 2.57 M/uL (4.20-5.40); White Blood Count 4.58 K/ul (4.8-10.8)
[2024-01-17 15:55] LABS: Albumin Level 3.1 gm/dl (3.4-5.0); Bilirubin Direct 0.2 mg/dl (0-0.2); Bilirubin,Total 1.2 mg/dl (0.2-1.0); Calcium 10.8 mg/dl (8.6-10.3); Est GFR (African American) 13.4 ml/min; Est GFR (Non-African American) 11.5 ml/min; Magnesium 2.5 mg/dl (1.7-2.4); Potassium 4.1 mmol/L (3.5-5.1); Total Protein 5.7 gm/dl (6.0-8.3)
[2024-01-17 15:59] LABS: Troponin I High Sensitivity 12.5 pg/ml (0-14)
[2024-01-17 16:03] LABS: Partial Thromboplastin Time 26 Seconds (21-31); Prothrombin Time 10.6 Seconds (9.0-12.0)
[2024-01-17] MEDS: SODIUM CHLORIDE 0.9% 500 ML IV SCH (16:51)
[2024-01-17 17:07] LABS: Influenza A virus by PCR Negative (Neg); Influenza B virus by PCR Negative (Neg); RSV by PCR Negative (Neg); SARS CoV2 RNA(COVID-19) Ceph NEGATIVE (Negative)
--- NOTE | 2024-01-17 17:15 | CT Scan Report ---
CT abd pelvis wo con CLINICAL HISTORY: abd pain TECHNIQUE: Helical axial images of the abdomen and pelvis were obtained. Automated dose lowering tech niques and/or adjustment according to patient size were utilized for this exam. This exam was perfor med without intravenous contrast. CT DOSE: 1225.52 mGy.cm COMPARISON: Comparison is made to CT abdomen pelvis 09/09/2023 FINDINGS: Lower chest: Small bilateral pleural effusions are seen with underlying atelectasis. Liver: Unremarkable. No focal lesions are seen. Gallbladder and biliary tree: Patient is status post cholecystectomy. No intra- or extrahepatic bilia ry ductal dilation. Pancreas: Fatty replacement of the pancreas is seen. There is suggestion of cystic foci which may rep resent IPMN. Spleen: Unremarkable. Adrenals: Unremarkable. Kidneys and ureters: Exophytic foci are seen, some of which are greater than simple fluid density. Th is likely represents proteinaceous/hemorrhagic cysts. Bladder: Unremarkable. Reproductive organs: Unremarkable. Bowel: Diverticulosis is seen without evidence of diverticulitis. A hiatal hernia is seen. Post surgi antelmo changes are seen in the cecum. Lymph nodes Retroperitoneal: Unremarkable. Pelvic: Unremarkable. Mesenteric: Unremarkable. Peritoneum: Normal. Vessels: Atherosclerotic calcifications are seen. Abdominal wall: Multiple abdominal hernias are seen one of which contains a nondilated portion of a l oop of bowel. Bones: Degenerative changes in the visualized spine. IMPRESSION: 1. No acute abnormalities to explain nausea and diarrhea. In particular no bowel obstruction is seen . 2. Small bilateral pleural effusions. 3. Small hiatal hernia. 4. Ventral hernia containing nondilated loop of bowel. 5. Multiple mixed density lesions of the kidneys are unchanged from prior exam likely representing p roteinaceous/hemorrhagic cysts. If not previously evaluated, nonemergent ultrasound can be performed to exclude solid mass. 6. Additional findings as above. ACT 112: Negative or not required by law. Electronically signed by: Milton Velarde M.D. 01/17/2024 5:13 PM
--- NOTE | 2024-01-17 18:10 | History & Physical Report ---
Date of Service January 17, 2024 Assessment & Plan (1) Acute kidney injury superimposed on chronic kidney disease: Plan: Worsening fatigue since Friday 01/12 and acute onset of diarrhea the evening of Monday 01/15 BUN 35, creatinine 3.50 (baseline 2.75), EGFR 11.5 Avoid nephrotoxic agents for possible Suspect prerenal secondary to poor oral intake Will trial gentle fluid resuscitation with Plasma-Lyte 80 mL/hr x 1 L overnight A.m. CBC, BMP, mag (2) Diarrhea: Plan: No recent antibiotic use No blood in stool Stool studies ordered, pending (3) Anorexia: Plan: Daughter reports significant loss of appetite recently Dietitian is consulted for nutritional assessment (4) Controlled diabetes mellitus with neurologic complication, with long-term current use of insulin: Plan: Last A1c at 6.4% on 08/24/2023 Patient normally takes Lantus 15 units HS Will reduce to Lantus 12u HS in the setting of ELADIA SSI; with target BSG range 110-140mg/dL, CF 50, carb ratio 15 T2DM diet BSG ACHS Adjust regimen as needed AM A1c (5) (HFpEF) heart failure with preserved ejection fraction: Plan: Last echocardiogram on 06/30 revealed LVEF at 60 to 65% Daily weights Strict I&O monitoring Heart healthy, low-sodium diet Hold Bumex in the setting of IVF resuscitation (6) Paroxysmal atrial fibrillation: Plan: Rate controlled; in A-fib on arrival Continue Eliquis (7) Anemia of chronic disease: Plan: Chronic; Hgb 8.3 on arrival Suspect secondary to CKD Patient does receive Procrit shots at the [facility] every couple weeks Patient denies blood in the stool/urine Clinically, no signs of active bleeding on physical exam Trend H&H (8) Generalized weakness: Plan: Patient reports she felt like she could not get out of bed on Monday 01/15 PT/OT evaluations appreciated Fall precautions (9) Colon cancer: Plan: Follows with [facility] (10) Hx of breast cancer: Plan [facility]: [facility] Full code Heart healthy, low-sodium diet VTE PPx: On Eliquis History of Present Illness Chief Complaint: Diarrheal illness, generalized fatigue Primary Care Provider: MATT Pelletier is a pleasant 83-year-old female with PMH of CABG, colon cancer, CKD stage IV, dyslipidemia, PVD, DVT, HFpEF, TIA, and diabetes. She presented on 01/16 for increased weakness and diarrhea x 3 episodes that began the night prior. Patient was having normal bowel movements before Sunday. However, on Sunday she reports that she felt like she could not get out of bed. She was also feeling nauseous, but denies any vomiting. Patient was also feeling tired on Sunday. Daughter is present in the room and provides additional history. She reports that the patient has had increased loss of appetite, and has not b een eating or drinking much recently. She also reports that she has been complaining of increased fatigue and cold intolerance. Her diarrhea is liquidy in consistency, which is new for her. No recent antibiotic use. No blood in the stool. Patient reports that she took all her regular morning medications today. No recent change in medications. She receives a shot of Procrit at the [facility] every couple weeks for her anemia. Follows with [facility] for colon cancer. Patient denies smoking, tobacco use, recent alcohol use. Patient's vitals are stable at time of admission. ED course: NSS 500 mL IV ROS: Patient endorses nausea, generalized fatigue, lightheadedness/dizziness, cold intolerance, and liquidy diarrhea x 1 day. Patient denies fever, chills, night sweats, headache, chest pain, pleuritic CP, SOB, cough, blood in the urine or stool, burning with urination, or dysuria. Allergies Allergy/AdvReac Type Severity Reaction Status Date / Time spironolactone AdvReac Severe Hyperkalemi Verified 10/25/23 09:36 a sulfamethoxazole AdvReac Severe SEVERE Verified 10/25/23 09:36 [From Bactrim] VOMITING trimethoprim [From Bactrim] AdvReac Severe SEVERE Verified 10/25/23 09:36 VOMITING JESSICA Inhibitors AdvReac Intermediate ARF Verified 10/25/23 09:36 diclofenac AdvReac Intermediate ankle Verified 10/25/23 09:36 swelling iron AdvReac Intermediate nausea/ Verified 10/25/23 09:36 VOMITING Home Medications Medication Instructions Recorded Confirmed Type cyanocobalamin (vitamin B-12) 1,000 mcg PO QAM 12/28/17 01/17/24 History 1,000 mcg capsule magnesium oxide 400 mg PO BID 12/28/17 01/17/24 History omega 3-xqt-rtk-fish oil 1,000 mg 1 cap PO QPM 12/28/17 01/17/24 History (120 mg-180 mg) capsule (Fish Oil) pen needle, diabetic 31 gauge x #30 ea 11/22/18 10/25/23 History 5/16" (BD Ultra-Fine Short Pen Needle) epoetin jase 2,000 unit/mL 2,000 unit subcut .[id number] 12/02/20 01/17/24 History injection solution (Procrit) apixaban 2.5 mg tablet (Eliquis) 2.5 mg PO BID #180 tabs 01/29/23 01/17/24 Rx bumetanide 0.5 mg tablet 0.5 mg PO BID #120 tabs 05/15/23 01/17/24 Rx atorvastatin 40 mg tablet 40 mg PO HS #90 tabs 05/23/23 01/17/24 Rx cilostazol 100 mg tablet 100 mg PO BID #180 tabs 06/05/23 01/17/24 Rx diclofenac sodium 1 % topical gel 2 g topical QID PRN arthritic pain 06/12/23 01/17/24 Rx (Voltaren Arthritis Pain) #100 grams metoprolol succinate 200 mg 200 mg PO BID #180 tabs 06/13/23 01/17/24 Rx tablet,extended release 24 hr calcitriol 0.25 mcg capsule 0.25 mcg PO DAILY #90 caps 09/10/23 01/17/24 Rx (Rocaltrol) insulin aspart U-100 100 unit/mL See Rx Instructions subcut TID #60 10/30/23 01/17/24 Rx (3 mL) subcutaneous pen (Novolog mL FlexPen U-100 Insulin aspart) isosorbide mononitrate 30 mg 30 mg PO QAM #90 tabs 12/19/23 01/17/24 Rx tablet,extended release 24 hr isosorbide mononitrate 60 mg 60 mg PO QAM #90 tabs 12/19/23 01/17/24 Rx tablet,extended release 24 hr alendronate 70 mg tablet (Fosamax) 70 mg PO WK #12 tabs 12/25/23 01/17/24 Rx hydralazine 100 mg tablet 100 mg PO TID 01/17/24 01/17/24 History insulin glargine 100 unit/mL (3 15 unit subcut HS 01/17/24 01/17/24 History mL) subcutaneous pen (Lantus Solostar U-100 Insulin) Past Med/Surg History Problem List (Updated 10/25/23 @ 09:39 by Mary Almanza LPN) Anorexia Anemia of chronic disease Hx of breast cancer right breast (Jun 2018). surgical intervention + radiation therapy Colon cancer Paroxysmal atrial fibrillation Acute kidney injury superimposed on chronic kidney disease Controlled diabetes mellitus with neurologic complication, with long-term current use of insulin S/P carpal tunnel release Left wrist- 10/24/[address] Lencho FRAZIER Generalized weakness Acute heart failure with preserved ejection fraction Hypoxia (Acute) Congestive heart failure (Acute) Diarrhea Hypoxia Elevated troponin Fungal infection of skin of abdomen Swelling of both lower extremities Volume overload Carpal tunnel syndrome, left Paresthesia of right lower extremity Neuroforaminal stenosis of lumbosacral spine Lumbosacral spondylosis Paresthesia (Acute) Brain TIA (Acute) (HFpEF) heart failure with preserved ejection fraction Acute diastolic CHF (congestive heart failure) (Acute) DVT (deep venous thrombosis) Right upper leg DVT -- March 2020 -- placed on eliquis.-NO ISSUES SINCE Recent u/s from 07/07/20= shows continued evidence of right common femoral DVT. Right knee DJD PVD (peripheral vascular disease) on Pletal Malignant neoplasm of upper-outer quadrant of right breast in female, estrogen receptor positive (Chronic) Vitamin D deficiency (Chronic) Obesity (BMI 35.0-39.9 without comorbidity) (Acute) Dyslipidemia (high LDL; low HDL) (Acute) Dysesthesia (Acute) History of total left knee replacement Thickened endometrium S/P right colectomy Status post hysteroscopy CKD (chronic kidney disease), stage IV Hyperparathyroidism HOPPER (dyspnea on exertion) Osteoporosis Chronic anticoagulation History of left knee replacement History of colon cancer 2020- adenocarcinoma Edema (Acute) S/P laparoscopic colectomy (08/26/20) Laparoscopic Extended Hemicolectomy, Extensive enterolysis - Sohail Quiroga DO History of coronary artery bypass graft 3 [facility] 2006-[facility] Medical History Chronic kidney disease Urinary retention Paroxysmal atrial fibrillation Type 2 diabetes mellitus with neurologic complication, with long-term current use of insulin Hypertension CAD (coronary artery disease) New onset a-fib Small bowel obstruction Ileus Encounter for pre-operative examination Anemia Hx of breast cancer Lumbar spinal stenosis Peripheral vascular disease Hx of acute respiratory failure Osteoarthritis Venous stasis dermatitis Chronic kidney disease Hyperlipidemia Surgical History Hx of colonoscopy Hx of lymph node excision Status post dilation and curettage History of esophagogastroduodenoscopy (EGD) S/P epidural steroid injection History of partial mastectomy of right breast Status post trigger finger release History of total knee replacement History of adverse response to anesthesia History of Moh's micrographic surgery for skin cancer S/P tendon repair History of cholecystectomy History of dilatation and curettage History of bilateral tubal ligation History of cataract surgery History of cardiac cath Family History Mother No problems noted. Father No problems noted. Sister No problems noted. Sister No problems noted. Sister No problems noted. Sister No problems noted. Sister No problems noted. Daughter Myocardial infarction Breast cancer Family history of reaction to anesthesia Daughter Heart disease Other No family history of adverse response to anesthesia Denies family history of Ovarian cancer Prostate cancer Colorectal cancer Social History Smoking Status: Never smoker Second Hand Exposure: Yes; Do You Dip or Chew Tobacco: No; Hx Alcohol Use: Yes Alcohol type: wine Hx Substance Use: No Preferred Language: Iranian Communication Ability: Effective Visual Impairment: Limited Hearing Ability: Normal Human Resources Assistant Manager Required: No Beliefs That Will Affect Care: None marital status: / Current Living Situation: Alone current occupational status: retired How many Children do You have: 2 Feels Safe at Home: Yes Childhood Exposure to Second-Hand Smoke: No Diet: low salt and regular caffeine: No during the past year weight has: remained stable Dental Care, Regularly: No Physical Activity Frequency: 3-4 Times per Week Seatbelt Use: always Sunscreen Use: Yes Do you think of yourself as: straight/heterosexual Gender Identity: Female Assistive Devices: Cane Review of Systems Review of Systems: See HPI above Physical Exam Physical Exam: General: no acute distress; pleasant affect; non-toxic appearing; frail appearing; cooperative; SpO2 93% on RA HEENT: normocephalic, atraumatic; no scleral icterus; PERRLA; vision and hearing grossly intact Neck: supple; no lymphadenopathy; trachea midline Skin: warm, dry without signs of tenting; no cyanosis; no rashes, lesions, or erythema noted CV: chest wall NTP; irregularly irregular rhythm; S1/S2 normal; no murmurs/rubs/gallops; pulses intact and symmetric at radial, DP, and PT Lungs: no acute respiratory distress; symmetrical chest wall expansion; clear breath sounds across all lung mora w/o adventitious sounds; no wheezing ABD: Soft, NTP; BS present; no rebound/guarding; no distention MSK: no tics or fasciculations; no edema noted in the LEs b/l, nonerythematous Neuro: A&Ox3; normal mood and affect; fluent speech; no focal deficits; sensation grossly intact and symmetric in the LEs b/l Results & Data Results & Data Vital Signs (Past 12 Hours) Vital Signs Pulse Pulse Resp BP BP Pulse Ox O2 Del Method 01/17/24 17:06 70 18 135/61 97 01/17/24 16:03 68 01/17/24 14:48 73 18 96 Room Air 01/17/24 14:34 71 14 157/59 H 93 Room Air 01/17/24 14:21 69 18 157/59 H 91 Room Air Laboratory Results Abnormal lab results 01/17/24 01/17/24 Range/Units 15:09 15:28 WBC 4.58 L (4.8-10.8) K/ul RBC 2.57 L (4.20-5.40) M/uL Hgb 8.3 L (12.0-16.0) g/dl Hct 25.9 L (37.0-47.0) % MCV 100.8 H (80.0-100.0) fL RDW Std Deviation 54.1 H (36.4-46.3) fL RDW Coeff of Kirsty 14.9 H (11.5-14.5) % Lymph # (Auto) 0.61 L (1.20-3.40) K/uL [place] # (Auto) 0.67 H (0.11-0.59) K/uL BUN 35 H (6-23) mg/dl Creatinine 3.50 H (0.6-1.2) mg/dl Glucose 120 H (70-99(Fasting)) mg/dl POC Glucose 124 H (70-99) mg/dl Calcium 10.8 H (8.6-10.3) mg/dl Magnesium 2.5 H (1.7-2.4) mg/dl Total Bilirubin 1.2 H (0.2-1.0) mg/dl AST 10 L (13-39) U/L ALT 5 L (7-52) U/L Total Protein 5.7 L (6.0-8.3) gm/dl Albumin 3.1 L (3.4-5.0) gm/dl Lipase 10 L (11-82) U/L Diagnostic Findings Chest X-Ray 01/17/24 14:48 XR chest 1V portable HISTORY: 83 years-old Female weakness acute weakness COMPARISON: 10/04/2023 TECHNIQUE: AP view of the chest FINDINGS: Cardiac silhouette is enlarged. Median sternotomy. Atherosclerosis of the aorta. Pulmonary vascular congestion with trace pleural effusions and mild bibasilar atelectasis redemonstrated. No pneumothorax. Bones appear grossly intact. IMPRESSION: 1. Cardiomegaly with pulmonary vascular congestion. 2. Trace pleural effusions. ACT 112: Negative or not required by law. The above report was generated using voice recognition software. It may contain grammatical, syntax or spelling errors. Electronically signed by: Pancho Alvarado M.D. 01/17/2024 3:26 PM Abdomen/Pelvis CT 01/17/24 16:11 CT abd pelvis wo con CLINICAL HISTORY: abd pain TECHNIQUE: Helical axial images of the abdomen and pelvis were obtained. Automated dose lowering techniques and/or adjustment according to patient size were utilized for this exam. This exam was performed without intravenous contrast. CT DOSE: 1225.52 mGy.cm COMPARISON: Comparison is made to CT abdomen pelvis 09/09/2023 FINDINGS: Lower chest: Small bilateral pleural effusions are seen with underlying atelectasis. Liver: Unremarkable. No focal lesions are seen. Gallbladder and biliary tree: Patient is status post cholecystectomy. No intra- or extrahepatic biliary ductal dilation. Pancreas: Fatty replacement of the pancreas is seen. There is suggestion of cystic foci which may represent IPMN. Spleen: Unremarkable. Adrenals: Unremarkable. Kidneys and ureters: Exophytic foci are seen, some of which are greater than simple fluid density. This likely represents proteinaceous/hemorrhagic cysts. Bladder: Unremarkable. Reproductive organs: Unremarkable. Bowel: Diverticulosis is seen without evidence of diverticulitis. A hiatal hernia is seen. Post surgical changes are seen in the cecum. Lymph nodes Retroperitoneal: Unremarkable. Pelvic: Unremarkable. Mesenteric: Unremarkable. Peritoneum: Normal. Vessels: Atherosclerotic calcifications are seen. Abdominal wall: Multiple abdominal hernias are seen one of which contains a nondilated portion of a loop of bowel. Bones: Degenerative changes in the visualized spine. IMPRESSION: 1. No acute abnormalities to explain nausea and diarrhea. In particular no bowel obstruction is seen. 2. Small bilateral pleural effusions. 3. Small hiatal hernia. 4. Ventral hernia containing nondilated loop of bowel. 5. Multiple mixed density lesions of the kidneys are unchanged from prior exam likely representing proteinaceous/hemorrhagic cysts. If not previously evaluated, nonemergent ultrasound can be performed to exclude solid mass. 6. Additional findings as above. ACT 112: Negative or not required by law. Electronically signed by: Milton Velarde M.D. 01/17/2024 5:13 PM ECG Additional Comments: ECG revealed atrial fibrillation at 74 bpm; QTc 432 Code Status & VTE Plan Code Status Full code VTE Prophylaxis Plan VTE Prophylaxis will be ordered: Yes PG Care Time/CCT Total # of Minutes Spent Total Time Spent with Patient: Total time spent is greater than 50% in coordination of care (as documented) at patient's floor/unit and/or counseling patient: Coding [place] [address] INT INP/OBS CARE 3/75MIN Patient Type Established History Comprehensive Exam Comprehensive Medical Decision Making High Complexity Diagnoses Acute kidney injury superimposed on chronic kidney disease N17.9; N18.9 Diarrhea R19.7 Anorexia R63.0 Controlled diabetes mellitus with neurologic complication, with long-term current use of insulin E11.49; Z79.4 (HFpEF) heart failure with preserved ejection fraction I50.30 Paroxysmal atrial fibrillation I48.0 Anemia of chronic disease D63.8 Generalized weakness R53.1 Colon cancer C18.9 Hx of breast cancer Z85.3
[2024-01-17] MEDS: PLASMA-LYTE A 1,000 ML IV SCH (19:13)
--- NOTE | 2024-01-17 19:16 | Emergency Department Note ---
History of Present Illness General Chief complaint: Illness Stated complaint: NAUSEA, WEAKNESS, DIARRHEA Time Seen by Provider: 01/17/24 14:41 History of Present Illness Provider complaint: Weakness Onset (ago): day(s) 2 83-year-old female presents emergency department for weakness. Patient reports for the last 2 days she has been feeling very weak and having nausea vomiting diarrhea. No melena or hematochezia. No hematuria or dysuria. No coffee- ground emesis bilious vomiting or hematemesis. No chest pain or difficulty breathing. No abdominal pain. No falls or traumas. No fevers. Home Medications Medication Instructions Recorded Confirmed Type cyanocobalamin (vitamin B-12) 1,000 mcg PO QAM 12/28/17 01/17/24 History 1,000 mcg capsule magnesium oxide 400 mg PO BID 12/28/17 01/17/24 History omega 3-gva-lwj-fish oil 1,000 mg 1 cap PO QPM 12/28/17 01/17/24 History (120 mg-180 mg) capsule (Fish Oil) pen needle, diabetic 31 gauge x #30 ea 11/22/18 10/25/23 History 5/16" (BD Ultra-Fine Short Pen Needle) epoetin jase 2,000 unit/mL 2,000 unit subcut .P0xtvdy 12/02/20 01/17/24 History injection solution (Procrit) apixaban 2.5 mg tablet (Eliquis) 2.5 mg PO BID #180 tabs 01/29/23 01/17/24 Rx bumetanide 0.5 mg tablet 0.5 mg PO BID #120 tabs 05/15/23 01/17/24 Rx atorvastatin 40 mg tablet 40 mg PO HS #90 tabs 05/23/23 01/17/24 Rx cilostazol 100 mg tablet 100 mg PO BID #180 tabs 06/05/23 01/17/24 Rx diclofenac sodium 1 % topical gel 2 g topical QID PRN arthritic pain 06/12/23 01/17/24 Rx (Voltaren Arthritis Pain) #100 grams metoprolol succinate 200 mg 200 mg PO BID #180 tabs 06/13/23 01/17/24 Rx tablet,extended release 24 hr calcitriol 0.25 mcg capsule 0.25 mcg PO DAILY #90 caps 09/10/23 01/17/24 Rx (Rocaltrol) insulin aspart U-100 100 unit/mL See Rx Instructions subcut TID #60 10/30/23 01/17/24 Rx (3 mL) subcutaneous pen (Novolog mL FlexPen U-100 Insulin aspart) isosorbide mononitrate 30 mg 30 mg PO QAM #90 tabs 12/19/23 01/17/24 Rx tablet,extended release 24 hr isosorbide mononitrate 60 mg 60 mg PO QAM #90 tabs 12/19/23 01/17/24 Rx tablet,extended release 24 hr alendronate 70 mg tablet (Fosamax) 70 mg PO WK #12 tabs 12/25/23 01/17/24 Rx hydralazine 100 mg tablet 100 mg PO TID 01/17/24 01/17/24 History insulin glargine 100 unit/mL (3 15 unit subcut HS 01/17/24 01/17/24 History mL) subcutaneous pen (Lantus Solostar U-100 Insulin) Allergies Allergy/AdvReac Type Severity Reaction Status Date / Time spironolactone AdvReac Severe Hyperkalemi Verified 10/25/23 09:36 a sulfamethoxazole AdvReac Severe SEVERE Verified 10/25/23 09:36 [From Bactrim] VOMITING trimethoprim [From Bactrim] AdvReac Severe SEVERE Verified 10/25/23 09:36 VOMITING JESSICA Inhibitors AdvReac Intermediate ARF Verified 10/25/23 09:36 diclofenac AdvReac Intermediate ankle Verified 10/25/23 09:36 swelling iron AdvReac Intermediate nausea/ Verified 10/25/23 09:36 VOMITING Past Med/Surg History Problem List Acute kidney injury superimposed on CKD (Acute) Anorexia Anemia of chronic disease Hx of breast cancer right breast (Jun 2018). surgical intervention + radiation therapy Colon cancer Paroxysmal atrial fibrillation Acute kidney injury superimposed on chronic kidney disease Controlled diabetes mellitus with neurologic complication, with long-term current use of insulin S/P carpal tunnel release Left wrist- 10/24/[address] Lencho FRAZIER Generalized weakness Acute heart failure with preserved ejection fraction Hypoxia (Acute) Congestive heart failure (Acute) Diarrhea Hypoxia Elevated troponin Fungal infection of skin of abdomen Swelling of both lower extremities Volume overload Carpal tunnel syndrome, left Paresthesia of right lower extremity Neuroforaminal stenosis of lumbosacral spine Lumbosacral spondylosis Paresthesia (Acute) Brain TIA (Acute) (HFpEF) heart failure with preserved ejection fraction Acute diastolic CHF (congestive heart failure) (Acute) DVT (deep venous thrombosis) Right upper leg DVT -- March 2020 -- placed on eliquis.-NO ISSUES SINCE Recent u/s from 07/07/20= shows continued evidence of right common femoral DVT. Right knee DJD PVD (peripheral vascular disease) on Pletal Malignant neoplasm of upper-outer quadrant of right breast in female, estrogen receptor positive (Chronic) Vitamin D deficiency (Chronic) Obesity (BMI 35.0-39.9 without comorbidity) (Acute) Dyslipidemia (high LDL; low HDL) (Acute) Dysesthesia (Acute) History of total left knee replacement Thickened endometrium S/P right colectomy Status post hysteroscopy CKD (chronic kidney disease), stage IV Hyperparathyroidism HOPPER (dyspnea on exertion) Osteoporosis Chronic anticoagulation History of left knee replacement History of colon cancer 2020- adenocarcinoma Edema (Acute) S/P laparoscopic colectomy (08/26/20) Laparoscopic Extended Hemicolectomy, Extensive enterolysis - Sohail Quiroga, History of coronary artery bypass graft 3 VESSELS 2006-[facility] [place] Medical History Chronic kidney disease Urinary retention Type 2 diabetes mellitus with neurologic complication, with long-term current use of insulin Hypertension CAD (coronary artery disease) s/p 3 vessel CABG 2006 New onset a-fib Small bowel obstruction 2020 > after colon surgery Ileus Encounter for pre-operative examination Anemia Mild- has been evaluated by heme/onc for recent dx colon cancer Lumbar spinal stenosis Peripheral vascular disease Hx of acute respiratory failure WITH GB SURG 04/21/09 [facility] POST OP RESPIRATORY FAILURE-HAD TO BE VENTILATED,EXTUBATED NEXT DAY-PER PT SLOW TO WAKE UP IN GENERAL Right breast partial mastectomy 08/29/18 under [place] with LMA #4 x 3 attempts- atraumatic with good seal- no other issues noted Osteoarthritis Venous stasis dermatitis LLE Chronic kidney disease STAGE 3-FOLLOWS WITH DR LIND Last seen by nephro 07/20/20- kidney function stable at that time Hyperlipidemia Surgical History Hx of colonoscopy Hx of lymph node excision right axillary Status post dilation and curettage 08/26/20 Dr. Cathy Calderon- Hysteroscopy, Dilation and Curettage, Possible Polypectomy History of esophagogastroduodenoscopy (EGD) S/P epidural steroid injection History of partial mastectomy of right breast no chemo, just radiation Status post trigger finger release X2 History of total knee replacement LEFT 2018 History of adverse response to anesthesia SLOW TO WAKE. PT HAD RESP FAILURE S/P KYLAH IN 2009 History of Moh's micrographic surgery for skin cancer S/P tendon repair R ARM History of cholecystectomy History of dilatation and curettage History of bilateral tubal ligation History of cataract surgery BL History of cardiac cath 2006 NO STENTS-[facility] Family History Mother , age 38 heart disease due to rheumatic fever No problems noted. Father , age 73 heart disease No problems noted. Sister No problems noted. Sister No problems noted. Sister No problems noted. Sister No problems noted. Sister No problems noted. Daughter Myocardial infarction Breast cancer Family history of reaction to anesthesia SLOW TO WAKE UP/PONV Daughter Heart disease Other No family history of adverse response to anesthesia Denies family history of Ovarian cancer Prostate cancer Colorectal cancer Social History Smoking Status: Never smoker Second Hand Exposure: Yes; Do You Dip or Chew Tobacco: No; Hx Alcohol Use: Yes Alcohol type: wine Hx Substance Use: No Preferred Language: Japanese Communication Ability: Effective Visual Impairment: Limited Hearing Ability: Normal Crop Roller Required: No Beliefs That Will Affect Care: None marital status: / Current Living Situation: Alone current occupational status: retired How many Children do You have: 2 Feels Safe at Home: Yes Childhood Exposure to Second-Hand Smoke: No Diet: low salt and regular caffeine: No during the past year weight has: remained stable Dental Care, Regularly: No Physical Activity Frequency: 3-4 Times per Week Seatbelt Use: always Sunscreen Use: Yes Do you think of yourself as: straight/heterosexual Gender Identity: Female Assistive Devices: Cane Physical Exam Vital Signs Vital Signs - 24 hr 01/17/24 14:21 01/17/24 14:34 01/17/24 14:48 Pulse Rate 69 73 Pulse Rate [Apical] 71 Pulse Rate from SpO2 Sensor Pulse Rhythm Regular Pulse Rhythm [Apical] Regular Pulse Strength Normal Pulse Strength [Apical] Normal Respiratory Rate 18 14 18 Respiratory Effort / Characteristics Non-Labored Spontaneous Non-Labored Spontaneous Respiratory Depth Normal Normal Respiratory Pattern Regular Regular Blood Pressure 157/59 H Blood Pressure [Left Arm] 157/59 H Blood Pressure Mean 91 Blood Pressure Mean [Left Arm] 91 Blood Pressure Position Semi-fowlers Pulse Oximetry 91 93 96 Oxygen Delivery Method Room Air Room Air Room Air Sepsis Recent Fever Within 48 Hours No Sepsis New/Unexplained Change in Mental Status No Sepsis Action Taken by Nursing No Action Required 01/17/24 16:03 01/17/24 17:06 01/17/24 17:30 Pulse Rate 68 70 68 Pulse Rate [Apical] Pulse Rate from SpO2 Sensor 64 67 Pulse Rhythm Pulse Rhythm [Apical] Pulse Strength Pulse Strength [Apical] Respiratory Rate 18 26 H Respiratory Effort / Characteristics Respiratory Depth Respiratory Pattern Blood Pressure 135/61 132/57 L Blood Pressure [Left Arm] Blood Pressure Mean 85 82 Blood Pressure Mean [Left Arm] Blood Pressure Position Pulse Oximetry 97 93 Oxygen Delivery Method Sepsis Recent Fever Within 48 Hours Sepsis New/Unexplained Change in Mental Status Sepsis Action Taken by Nursing Physical Exam HENT: Exam performed. -Head: Normocephalic and atraumatic. -Right Ear: External ear normal. No mastoid erythema -Left Ear: External ear normal. No mastoid erythema -Mouth/Throat: The oropharynx is clear and moist. No trismus in the jaw. No dental abscesses or uvula swelling. No oropharyngeal exudate or tonsillar abscesses. EYES: Conjunctivae and EOM are normal. Pupils are equal, round, and reactive to light. Right eye exhibits no discharge. Left eye exhibits no discharge. No scleral icterus. NECK: Normal range of motion. Neck supple. No JVD present. No carotid bruit present. No rigidity. No tracheal deviation and normal range of motion present. CV: Normal rate, irregular rhythm, normal heart sounds and intact distal pulses. There is no peripheral edema. Palpable radial pulses bue. PULM/CHEST: Effort normal and breath sounds normal. No respiratory distress. No stridor. She has no wheezes. She has no rales. -Chest Wall: She exhibits no tenderness. ABD: The abdomen is soft. She has no distension. No mass is present. There is no tenderness. There is no rebound, no guarding. MUSC/SKEL: Normal range of motion. There is no peripheral edema, tenderness or deformity. NEURO: Motor and sensation grossly intact. Course Course 1441: The patient was evaluated in room C9. A complete history and physical exam was performed Cardiac monitoring: An order was placed for continuous cardiac monitoring. The monitor shows a rate of 70 with atrial fibrilation rhythm interpreted by ut 1730: Vital signs stable.Labs show white blood cell count of 4.58 hemoglobin 8.3. Creatinine 3.5, up from baseline of about 2.5. Imaging is unremarkable. Patient will be hydrated and admitted for ELADIA. Administered Medications Discontinued Medications Sodium Chloride (Nss) 500 mls @ 75 mls/hr IV .[id number] TRISH Stop: 02/16/24 16:14 Last Admin: 01/17/24 16:51 Dose: 75 mls/hr Documented By: [facility] Medical Decision Making Laboratory Data Attestation: I reviewed the patient's lab results. 01/17/24 15:09 01/17/24 15:09 Lab Results 01/17/24 01/17/24 01/17/24 Range/Units 15:09 15:28 15:47 WBC 4.58 L (4.8-10.8) K/ul RBC 2.57 L (4.20-5.40) M/uL Hgb 8.3 L (12.0-16.0) g/dl Hct 25.9 L (37.0-47.0) % MCV 100.8 H (80.0-100.0) fL MCH 32.3 (25.0-34.0) pg MCHC 32.0 (32.0-36.0) g/dL RDW Std Deviation 54.1 H (36.4-46.3) fL RDW Coeff of Kirsty 14.9 H (11.5-14.5) % Plt Count 180 (130-400) K/uL MPV 9.7 (9.4-12.4) fL Immature Gran % (Auto) 0.4 % Neut % (Auto) 68.2 % Lymph % (Auto) 13.3 % [place] % (Auto) 14.6 % Eos % (Auto) 3.1 % Baso % (Auto) 0.4 % Neut # (Auto) 3.12 (1.40-6.50) K/uL Lymph # (Auto) 0.61 L (1.20-3.40) K/uL [place] # (Auto) 0.67 H (0.11-0.59) K/uL Eos # (Auto) 0.14 (0.00-0.50) K/uL Baso # (Auto) 0.02 (0.00-0.20) K/uL Immature Gran # (Auto) 0.02 (0.01-0.20) K/uL PT 10.6 (9.0-12.0) Seconds INR 1.0 (0.9-1.1) APTT 26 (21-31) Seconds PTT Ratio 1.0 Sodium 138 (136-145) mmol/L Potassium 4.1 (3.5-5.1) mmol/L Chloride 104 (98-107) mmol/L Carbon Dioxide 28 (21-32) mmol/L Anion Gap 6 (3-11) BUN 35 H (6-23) mg/dl Creatinine 3.50 H (0.6-1.2) mg/dl Est Cr Clr Drug Dosing 13.0 ml/min Est GFR ( Amer) 13.4 ml/min Est GFR (Non-Af Amer) 11.5 ml/min BUN/Creatinine Ratio 10.0 (10-20) Glucose 120 H (70-99(Fasting)) mg/dl POC Glucose 124 H (70-99) mg/dl Calcium 10.8 H (8.6-10.3) mg/dl Magnesium 2.5 H (1.7-2.4) mg/dl Total Bilirubin 1.2 H (0.2-1.0) mg/dl Direct Bilirubin 0.2 (0-0.2) mg/dl AST 10 L (13-39) U/L ALT 5 L (7-52) U/L Alkaline Phosphatase 57 (34-104) U/L Troponin I High Sens 12.5 (0-14) pg/ml Total Protein 5.7 L (6.0-8.3) gm/dl Albumin 3.1 L (3.4-5.0) gm/dl Lipase 10 L (11-82) U/L SARS-CoV-2 (PCR) NEGATIVE (Negative) Influenza Type A (PCR) Negative (Neg) Influenza Type B (PCR) Negative (Neg) RSV (RT-PCR) Negative (Neg) Imaging Data Attestation: I personally reviewed and interpreted this imaging study as follows: My Impression: Chest x-ray negative. Airway clear. No pneumothorax. No consolidation. cardiomegaly no cephalization.. No free air under the diaphragm. No fractures of the skeletal structures. Radiologist's Impression: Chest X-Ray 01/17/24 14:48 XR chest 1V portable HISTORY: 83 years-old Female weakness acute weakness COMPARISON: 10/04/2023 TECHNIQUE: AP view of the chest FINDINGS: Cardiac silhouette is enlarged. Median sternotomy. Atherosclerosis of the aorta. Pulmonary vascular congestion with trace pleural effusions and mild bibasilar atelectasis redemonstrated. No pneumothorax. Bones appear grossly intact. IMPRESSION: 1. Cardiomegaly with pulmonary vascular congestion. 2. Trace pleural effusions. ACT 112: Negative or not required by law. The above report was generated using voice recognition software. It may contain grammatical, syntax or spelling errors. Electronically signed by: Pancho Alvarado M.D. 01/17/2024 3:26 PM Abdomen/Pelvis CT 01/17/24 16:11 CT abd pelvis wo con CLINICAL HISTORY: abd pain TECHNIQUE: Helical axial images of the abdomen and pelvis were obtained. Automated dose lowering techniques and/or adjustment according to patient size were utilized for this exam. This exam was performed without intravenous contrast. CT DOSE: 1225.52 mGy.cm COMPARISON: Comparison is made to CT abdomen pelvis 09/09/2023 FINDINGS: Lower chest: Small bilateral pleural effusions are seen with underlying atelectasis. Liver: Unremarkable. No focal lesions are seen. Gallbladder and biliary tree: Patient is status post cholecystectomy. No intra- or extrahepatic biliary ductal dilation. Pancreas: Fatty replacement of the pancreas is seen. There is suggestion of cystic foci which may represent IPMN. Spleen: Unremarkable. Adrenals: Unremarkable. Kidneys and ureters: Exophytic foci are seen, some of which are greater than simple fluid density. This likely represents proteinaceous/hemorrhagic cysts. Bladder: Unremarkable. Reproductive organs: Unremarkable. Bowel: Diverticulosis is seen without evidence of diverticulitis. A hiatal hernia is seen. Post surgical changes are seen in the cecum. Lymph nodes Retroperitoneal: Unremarkable. Pelvic: Unremarkable. Mesenteric: Unremarkable. Peritoneum: Normal. Vessels: Atherosclerotic calcifications are seen. Abdominal wall: Multiple abdominal hernias are seen one of which contains a nondilated portion of a loop of bowel. Bones: Degenerative changes in the visualized spine. IMPRESSION: 1. No acute abnormalities to explain nausea and diarrhea. In particular no bowel obstruction is seen. 2. Small bilateral pleural effusions. 3. Small hiatal hernia. 4. Ventral hernia containing nondilated loop of bowel. 5. Multiple mixed density lesions of the kidneys are unchanged from prior exam likely representing proteinaceous/hemorrhagic cysts. If not previously evaluated, nonemergent ultrasound can be performed to exclude solid mass. 6. Additional findings as above. ACT 112: Negative or not required by law. Electronically signed by: Milton Velarde M.D. 01/17/2024 5:13 PM ECG Data Attestation: I personally reviewed and interpreted this ECG as follows: Rate (beats per minute): 74 Rhythm: + atrial fibrillation ECG Intervals/blocks: + Normal QRS and + Normal QT-c ECG ST segments: + Normal ST segments [facility] Narrative 1441: The patient was evaluated in room C9. A complete history and physical exam was performed Cardiac monitoring: An order was placed for continuous cardiac monitoring. The monitor shows a rate of 70 with atrial fibrilation rhythm interpreted by me 1730: Vital signs stable.Labs show white blood cell count of 4.58 hemoglobin 8.3. Creatinine 3.5, up from baseline of about 2.5. Imaging is unremarkable. Patient will be hydrated and admitted for ELADIA. Impression & Plan Acute kidney injury superimposed on CKD Discharge Plan Visit Data Chief Complaint: Illness Stated Complaint: NAUSEA, WEAKNESS, DIARRHEA ED Provider: Freedom Muñoz Discharge Problem: Acute kidney injury superimposed on CKD Patient Disposition: Admitted As Inpatient Forms Stand Alone Forms: My [facility] Prescriptions Prescriptions: No Action Procrit 2,000 unit/mL solution 2,000 unit subcut .[id number] bumetanide 0.5 mg tablet 0.5 mg PO BID Qty: 120 3RF atorvastatin 40 mg tablet 40 mg PO HS Qty: 90 3RF cilostazol 100 mg tablet 100 mg PO BID Qty: 180 3RF Rx Instructions: TAKE 1 TABLET TWICE A DAY calcitriol [Rocaltrol] 0.25 mcg capsule 0.25 mcg PO DAILY Qty: 90 3RF insulin aspart U-100 [Novolog FlexPen U-100 Insulin] 100 unit/mL (3 mL) insulin pen See Rx Instructions SQ TID Qty: 60 3RF Rx Instructions: use per sliding scale up to 60 units daily SQ isosorbide mononitrate 60 mg tablet extended release 24 hr 60 mg PO QAM Qty: 90 3RF Rx Instructions: TOTAL DOSE 90 MG--TAKES WITH 30 MG TAB. isosorbide mononitrate 30 mg tablet extended release 24 hr 30 mg PO QAM Qty: 90 3RF Rx Instructions: TOTAL DOSE 90 MG--TAKES WITH 60 MG TAB. alendronate [Fosamax] 70 mg tablet 70 mg PO WK Qty: 12 3RF Rx Instructions: SUNDAYS Eliquis 2.5 mg tablet 2.5 mg PO BID Qty: 180 3RF (DME) pen needle, diabetic [BD Ultra-Fine Short Pen Needle] 31 gauge x 5/16" needle See Dose Instructions .ROUTE .MEDSUPPLY Qty: 30 Rx Instructions: use 1 needle 4 x daily metoprolol succinate 200 mg tablet extended release 24 hr 200 mg PO BID Qty: 180 3RF omega 6-cim-dhl-fish oil [Fish Oil] 1,000 mg (120 mg-180 mg) Capsule 1 cap PO QPM cyanocobalamin (vitamin B-12) 1,000 mcg Capsule 1,000 mcg PO QAM magnesium oxide 400 mg Capsule 400 mg PO BID diclofenac sodium [Voltaren Arthritis Pain] 1 % gel 2 g topical QID PRN (Reason: arthritic pain ) Qty: 100 3RF Rx Instructions: apply to single elbow, wrist or hand; for hand includes palm/fingers/back of hand hydralazine 100 mg tablet 100 mg PO TID insulin glargine [Lantus Solostar U-100 Insulin] 100 unit/mL (3 mL) insulin pen 15 unit subcut HS Referrals Referrals: Isaura Rashid CRNP [Primary Care Provider] -
[2024-01-17 20:11] LABS: Appearance Urine Clear (Clear); Bacteria Urine Automated 1+ (None Seen); Bilirubin Urine Negative (Negative); Blood Urine Negative (Negative); Color Urine Yellow; Glucose Urine UA Negative (Negative); Ketones Urine Negative (Negative); Leukocyte Esterase Urine 3+ (Negative); Nitrite Urine Negative (Negative); Protein Urine 1+ (Negative); RBC Urine Automated 0-2 /hpf (0-2); Specific Gravity Urine 1.011 (1.000-1.030); Urobilinogen Urine Negative (Negative); WBC Urine Automated >50 /hpf (0-5); pH Urine 7.5 (4.5-7.5)
[2024-01-17] MEDS ORDERED: GLUCOSE 40% GEL 15 GM TUBE PO PRN (20:35)
[2024-01-17] MEDS ORDERED: GLUCAGON FOR INJ 1 MG VIAL SQ PRN (20:35)
[2024-01-17] MEDS ORDERED: GLUCOSE 10 TAB/TUBE PO PRN (20:35)
[2024-01-17] MEDS ORDERED: POLYETHYLENE (MIRALAX) 17 GM PACK PO PRN (20:35)
[2024-01-17] MEDS ORDERED: CARBOHYDRATES FOR HYPOGLYCEMIA PO PRN (20:35)
[2024-01-17] MEDS ORDERED: DEXTROSE 50% 50 ML SYRINGE IV PRN (20:35)
[2024-01-17] MEDS: METOPROLOL SUCC 50MG EXT REL TAB PO SCH (21:37)
[2024-01-17] MEDS: ATORVASTATIN 40 MG TAB PO SCH (21:37)
[2024-01-17] MEDS: APIXABAN 2.5 MG TAB PO SCH (21:37)
[2024-01-17] MEDS: hydrALAZINE TAB 50 MG TAB PO SCH (21:38)
[2024-01-17] MEDS: cilostazoL 100 MG TAB PO SCH (21:38)
[2024-01-17] MEDS: LANTUS PER UNIT CHARGE SQ SCH (21:39)
[2024-01-17] MEDS: INSULIN ASPART PER UNIT CHARGE SC SCH (22:11)
[2024-01-18 06:07] LABS: Basophils # (auto) 0.02 K/uL (0.00-0.20); Basophils % (auto) 0.5 %; Eosinophils # (auto) 0.15 K/uL (0.00-0.50); Eosinophils % (auto) 3.5 %; Immature Granulocytes # (auto) 0.01 K/uL (0.01-0.20); Immature Granulocytes % (auto) 0.2 %; Lymphocytes # (auto) 0.71 K/uL (1.20-3.40); Lymphocytes % (auto) 16.6 %; Mean Corpuscular Hemoglobin 33.1 pg (25.0-34.0); Mean Corpuscular Hgb Conc 33.3 g/dL (32.0-36.0); Mean Corpuscular Volume 99.2 fL (80.0-100.0); Mean Platelet Volume 9.2 fL (9.4-12.4); Monocytes # (auto) 0.69 K/uL (0.11-0.59); Monocytes % (auto) 16.1 %; Neutrophils % (auto) 63.1 %; Platelet Count 158 K/uL (130-400); RDW Coefficient of Variation 14.6 % (11.5-14.5); RDW Standard Deviation 52.9 fL (36.4-46.3); Red Blood Count 2.42 M/uL (4.20-5.40); White Blood Count 4.28 K/ul (4.8-10.8)
[2024-01-18 06:19] LABS: BUN Creatinine Ratio 9.5 (10-20); Creatinine Clr Calc Pharmacy 13.3 ml/min; Est GFR (Non-African American) 11.3 ml/min; Magnesium 2.4 mg/dl (1.7-2.4)
[2024-01-18 07:36] LABS: Estimated Average Glucose 111 mg/dl; Hemoglobin A1C 5.5 % (4.5-5.6)
[2024-01-18] MEDS: ISOSORBIDE MONO EXTENDED REL 60 MG TABCR PO SCH (08:30)
[2024-01-18] MEDS: CALCITRIOL 0.25 MCG CAPSULE PO SCH (08:30)
[2024-01-18] MEDS: ISOSORBIDE MONO EXTENDED REL 30 MG TABCR PO SCH (08:30)
[2024-01-18] MEDS: CYANOCOBALAMIN (B-12) 500 MCG TABLET PO SCH (09:39)
[2024-01-18] MEDS: cefTRIAXone SODIUM 2,000 MG/50 ML BAG IV SCH (10:04)
[2024-01-18] MEDS: PLASMA-LYTE A 1,000 ML IV SCH (10:04)
--- NOTE | 2024-01-18 13:21 | Electrocardiogram Report ---
Test Reason : Blood Pressure : */* mmHG Vent. Rate : 74 BPM Atrial Rate : * BPM P-R Int : * ms QRS Dur : 116 ms QT Int : 390 ms P-R-T Axes : * -38 73 degrees QTcB Int : 432 ms Atrial fibrillation Left axis deviation Incomplete left bundle block Minimal voltage criteria for LVH, may be normal variant Abnormal ECG When compared with ECG of 02-Oct-2023 08:26, Incomplete left bundle block has replaced Incomplete right bundle branch block Criteria for Septal infarct are no longer Present Confirmed by Pancho Fox ([id number]) on 01/18/2024 1:21:01 PM Referred By: REFERRED SELF Confirmed By: Pancho Fox
--- NOTE | 2024-01-18 16:10 | Hospitalist Progress Note ---
Date of Service January 18, 2024 Assessment & Plan (1) Acute kidney injury superimposed on chronic kidney disease: Plan: Worsening fatigue since Friday 01/12 and acute onset of N/V/diarrhea the evening of Monday 01/15 BUN 35, creatinine 3.50 (baseline 2.75) on admission and stable today despite receiving IVFs since admission ELADIA on basis of prerenal azotemia from poor po intake and GI losses Give 1 more L of Plasmalyte gently Her po intake is improving but not great, however diarrhea has stopped Avoid nephrotoxic agents for possible Follow BMP in AM Hold home bumex (2) Diarrhea: Plan: No recent antibiotic use, No blood in stool Stool studies ordered, pending as she has not yet had any diarrhea since admission Likely a viral GE CT abd/pel neg for acute disease hydrating as above (3) UTI (urinary tract infection): Plan: UA abnormal, urine culture pending start ceftriaxone (4) Controlled diabetes mellitus with neurologic complication, with long-term current use of insulin: Plan: Last A1c at 6.4% on 08/24/2023 Patient normally takes Lantus 15 units HS and was hypoglycemic today after receiving 12 units Lantus last evening HOLD Lantus for tonight and resume once po intake improves SSI A1C well controlled at 5.5% (5) (HFpEF) heart failure with preserved ejection fraction: Plan: Chronic HFpEF-Last echocardiogram on 06/30 revealed LVEF at 60 to 65% Does have some crackles and pleural effusions trace on CT abd/pel, but clinically volume depleted Daily weights Strict I&O monitoring Heart healthy, low-sodium diet Hold Bumex in the setting of IVF resuscitation and intravascular volume depletion (6) Paroxysmal atrial fibrillation: Plan: Rate controlled, remains in Afib Continue Eliquis, Toprol (7) Anemia of chronic disease: Plan: Chronic; Hgb 8, anemia of CKD, receives Procrit with Heme/Onc Patient denies blood in the stool/urine Clinically, no signs of active bleeding on physical exam Follow CBC Check Fe levels, B12, folate, and TSH in AM (8) Generalized weakness: Plan: Patient reports she felt like she could not get out of bed on Monday 01/15 PT/OT evaluations appreciated Fall precautions due to acute GI illness, dehydration (9) Colon cancer: Plan: Follows with [facility], had surgical resection (10) Hx of breast cancer: Plan: in remission, follows with Heme/Onc Plan Disposition: Continued stay MedSurg telemetry, possible dc to home tomorrow if renal function improves Full code VTE PPx: On Eliquis Admission and Anticipated Discharge Date Admission Date: January 17, 2024 Subjective Feeling better, still a little weak. No further N/V/D but still did not eat much today. No abd pain Tele with Afib, rates 60-70s, some PVCs Physical Exam Constitutional: WD/WN, vitals as above Respiratory: normal respiratory effort Auscultation: + crackles (mild, at bases); no rhonchi and no wheezes Cardiovascular: Rate/Rhythm: regular rate and + irregularly irregular Heart Sounds: no murmur Extremities: no edema Gastrointestinal (Abdomen): normal bowel sounds, soft, nontender, no hepatosplenomegaly Psychiatric: A+Ox3, euthymic affect Results & Data Results & Data Vital Signs (Past 12 Hours) Vital Signs Temp Pulse Pulse Resp BP Pulse Ox O2 Del Method 01/18/24 15:34 37.2 C 74 20 138/66 97 Room Air 01/18/24 11:27 36.7 C 55 L 20 137/69 97 Room Air 01/18/24 09:06 62 01/18/24 08:17 36.6 C 55 L 20 162/68 H 98 Room Air Laboratory Results CBC, BMP, magnesium,HgbA1C reviewed PG Care Time/CCT Total # of Minutes Spent Total Time Spent with Patient: Total time spent is greater than 50% in coordination of care (as documented) at patient's floor/unit and/or counseling patient: Coding Level of Care Code 03443 SUB INP/OBS CARE 2/35MIN Diagnoses Acute kidney injury superimposed on chronic kidney disease N17.9; N18.9 Diarrhea R19.7 UTI (urinary tract infection) N39.0 Controlled diabetes mellitus with neurologic complication, with long-term current use of insulin E11.49; Z79.4 (HFpEF) heart failure with preserved ejection fraction I50.30 Paroxysmal atrial fibrillation I48.0 Anemia of chronic disease D63.8 Generalized weakness R53.1 Colon cancer C18.9 Hx of breast cancer Z85.3
[2024-01-18] MEDS: ACETAMINOPHEN 325 MG TAB PO PRN (20:00)
[2024-01-18] MEDS: DICLOFENAC SOD 1% GEL 100 GM TUBE EXT PRN (22:54)
[2024-01-19 07:20] LABS: Basophils # (auto) 0.02 K/uL (0.00-0.20); Basophils % (auto) 0.4 %; Eosinophils # (auto) 0.13 K/uL (0.00-0.50); Eosinophils % (auto) 2.8 %; Hematocrit (blood only) 23.3 % (37.0-47.0); Hemoglobin 7.7 g/dl (12.0-16.0); Immature Granulocytes # (auto) 0.01 K/uL (0.01-0.20); Immature Granulocytes % (auto) 0.2 %; Lymphocytes # (auto) 0.59 K/uL (1.20-3.40); Lymphocytes % (auto) 12.9 %; Mean Corpuscular Hemoglobin 32.8 pg (25.0-34.0); Mean Corpuscular Volume 99.1 fL (80.0-100.0); Mean Platelet Volume 9.7 fL (9.4-12.4); Monocytes # (auto) 0.76 K/uL (0.11-0.59); Monocytes % (auto) 16.6 %; Neutrophils # (auto) 3.06 K/uL (1.40-6.50); Neutrophils % (auto) 67.1 %; Platelet Count 164 K/uL (130-400); RDW Coefficient of Variation 14.8 % (11.5-14.5); RDW Standard Deviation 53.4 fL (36.4-46.3); Red Blood Count 2.35 M/uL (4.20-5.40); White Blood Count 4.57 K/ul (4.8-10.8)
[2024-01-19 07:47] LABS: Poikilocytosis Present; Polychromasia 1+
[2024-01-19 07:52] LABS: BUN Creatinine Ratio 10.5 (10-20); Calcium 9.9 mg/dl (8.6-10.3); Creatinine Clr Calc Pharmacy 13.2 ml/min; Est GFR (African American) 13.6 ml/min; Est GFR (Non-African American) 11.8 ml/min; Potassium 3.9 mmol/L (3.5-5.1)
[2024-01-19 08:07] LABS: Thyroid Stimulating Hormone 5.969 uIu/ml (0.300-4.500)
[2024-01-19 08:13] LABS: Ferritin 86.9 ng/ml (8-388)
[2024-01-19 08:41] LABS: Folate (Folic Acid),Ser orPlas 6.41 ng/ml (>5.38)
[2024-01-19 08:42] LABS: Vitamin B12 > 1500 pg/ml (180-914)
[2024-01-19 08:48] LABS: T4 Free Thyroxine 1.26 ng/dl (0.61-1.60)
[2024-01-19] MEDS: FERROUS GLUCONATE 324 MG TAB PO SCH (09:56)
[2024-01-19 16:38] LABS: Calcium 10.1 mg/dl (8.6-10.3); Potassium 4.2 mmol/L (3.5-5.1)
[2024-01-19 16:43] LABS: BUN Creatinine Ratio 10.2 (10-20); Creatinine Clr Calc Pharmacy 13.6 ml/min; Est GFR (African American) 14.2 ml/min; Est GFR (Non-African American) 12.2 ml/min
--- NOTE | 2024-01-19 17:07 | Hospitalist Progress Note ---
Date of Service January 19, 2024 Assessment & Plan (1) Acute kidney injury superimposed on CKD: Plan: 83 yo F admitted on 01/18/24 for fatigue and diarrhea. (1) Acute kidney injury superimposed on chronic kidney disease: Plan: - BUN 35, creatinine 3.50 (baseline 2.75), EGFR 11.5 --> Cr slowly improving -- down to 3.3 today. - likely pre-renal due to volume loss from diarrhea and poor oral intake - Will trial gentle fluid resuscitation with Plasma-Lyte 80 mL/hr x 1 L overnight - Avoid nephrotoxic agents for possible - trend BMP --> if ongoing improvements noted, likely discharge in AM (2) Diarrhea: Plan: - No recent antibiotic use - No blood in stool - Stool studies ordered, pending -- resolved without intervention (3) Anorexia: Plan: - Daughter reports significant loss of appetite recently - Dietitian is consulted for nutritional assessment (4) Controlled diabetes mellitus with neurologic complication, with long-term current use of insulin: Plan: A1c at 5.5 today Patient normally takes Lantus 15 units HS Will reduce to Lantus 12u HS in the setting of ELADIA SSI; with target BSG range 110-140mg/dL, CF 50, carb ratio 15 T2DM diet BSG ACHS Adjust regimen as needed (5) (HFpEF) heart failure with preserved ejection fraction: Plan: Last echocardiogram on 06/30 revealed LVEF at 60 to 65% Daily weights Strict I&O monitoring Heart healthy, low-sodium diet Hold Bumex in the setting of IVF resuscitatio (6) Paroxysmal atrial fibrillation: Plan: Rate controlled; in A-fib on arrival Continue Eliquis (7) Anemia of chronic disease: Plan: Chronic; Hgb 8.3 on arrival Suspect secondary to CKD Patient does receive Procrit shots at the [facility] every couple weeks Patient denies blood in the stool/urine Clinically, no signs of active bleeding on physical exam Trend H&H -- Fe studies showing low iron level -- PO supplement ordered (8) Generalized weakness: Plan: Patient reports she felt like she could not get out of bed on Monday 01/15 PT/OT evaluations appreciated --> she is able to go straight home -- resolved with improvement in viral gastro (9) Colon cancer: Plan: Follows with [facility] (10) Hx of breast cancer: Plan Disposition: Med/Surg Full code Heart healthy, low-sodium diet VTE PPx: On Eliquis Admission and Anticipated Discharge Date Admission Date: January 17, 2024 Subjective Patient feels well overall -- wants to go home. Ambulating well. Eating and drinking Review of Systems Review of Systems: All systems reviewed & are unremarkable except as noted in HPI & below Physical Exam Constitutional: WD/WN, vitals as above Eyes: PERRL, conjunctivae normal, anicteric sclerae ENMT: external ear and nose normal, oropharynx normal Neck: trachea midline, no thyromegaly Respiratory: normal respiratory effort, lungs clear to auscultation Cardiovascular: Rate/Rhythm: regular rate and + irregularly irregular Heart Sounds: normal S1 and normal S2 Results & Data Results & Data Vital Signs (Past 12 Hours) Vital Signs Temp Pulse Pulse Resp BP Pulse Ox O2 Del Method 01/19/24 15:20 36.8 C 70 16 128/78 100 Room Air 01/19/24 10:33 36.8 C 69 16 142/67 H 100 Room Air 01/19/24 08:27 57 L 01/19/24 07:29 Room Air 01/19/24 07:15 36.7 C 66 18 169/72 H 95 Room Air PG Care Time/CCT Total # of Minutes Spent Total Time Spent with Patient: Total time spent is greater than 50% in coordination of care (as documented) at patient's floor/unit and/or counseling patient: C[place] [address] SUB INP/OBS CARE 2/35MIN Patient Type Established Diagnoses Acute kidney injury superimposed on CKD N17.9; N18.9
[2024-01-20 07:19] LABS: BUN Creatinine Ratio 10.4 (10-20); Creatinine Clr Calc Pharmacy 14.3 ml/min; Est GFR (Non-African American) 12.9 ml/min; Potassium 3.8 mmol/L (3.5-5.1)
[2024-01-20 07:49] VITALS: RESP 16
--- NOTE | 2024-01-20 09:55 | Discharge Summary ---
Date of Service January 20, 2024 Admission HPI Per Admitting Provider Patricia is a pleasant 83-year-old female with PMH of CABG, colon cancer, CKD stage IV, dyslipidemia, PVD, DVT, HFpEF, TIA, and diabetes. She presented on 01/16 for increased weakness and diarrhea x 3 episodes that began the night prior. Patient was having normal bowel movements before Sunday. However, on Sunday she reports that she felt like she could not get out of bed. She was also feeling nauseous, but denies any vomiting. Patient was also feeling tired on Sunday. Daughter is present in the room and provides additional history. She reports that the patient has had increased loss of appetite, and has not been eating or drinking much recently. She also reports that she has been complaining of increased fatigue and cold intolerance. Her diarrhea is liquidy in consistency, which is new for her. No recent antibiotic use. No blood in the stool. Patient reports that she took all her regular morning medications today. No recent change in medications. She receives a shot of Procrit at the [facility] every couple weeks for her anemia. Follows with [facility] for colon cancer. Patient denies smoking, tobacco use, recent alcohol use. Patient's vitals are stable at time of admission. ED course: NSS 500 mL IV ROS: Patient endorses nausea, generalized fatigue, lightheadedness/dizziness, cold intolerance, and liquidy diarrhea x 1 day. Patient denies fever, chills, night sweats, headache, chest pain, pleuritic CP, SOB, cough, blood in the urine or stool, burning with urination, or dysuria. Admission Exam Per Admitting Provider General: no acute distress; pleasant affect; non-toxic appearing; frail appearing; cooperative; SpO2 93% on RA HEENT: normocephalic, atraumatic; no scleral icterus; PERRLA; vision and hearing grossly intact Neck: supple; no lymphadenopathy; trachea midline Skin: warm, dry without signs of tenting; no cyanosis; no rashes, lesions, or erythema noted CV: chest wall NTP; irregularly irregular rhythm; S1/S2 normal; no murmurs/rubs/gallops; pulses intact and symmetric at radial, DP, and PT Lungs: no acute respiratory distress; symmetrical chest wall expansion; clear breath sounds across all lung mora w/o adventitious sounds; no wheezing ABD: Soft, NTP; BS present; no rebound/guarding; no distention MSK: no tics or fasciculations; no edema noted in the LEs b/l, nonerythematous Neuro: A&Ox3; normal mood and affect; fluent speech; no focal deficits; sensation grossly intact and symmetric in the LEs b/l Principal Diagnosis Acute Kidney Injury Discharge Exam Constitutional WD/WN, vitals as above Eyes + anicteric sclerae ENMT external ear and nose normal, oropharynx normal Neck trachea midline, no thyromegaly Respiratory normal respiratory effort; no respiratory distress and no cough Auscultation: + crackles (bilateral lung bases) Cardiovascular RRR, no murmur, no edema Skin no rashes, warm and dry Psychiatric A+Ox3, euthymic affect Discharge Data Allergies Allergy/AdvReac Type Severity Reaction Status Date / Time spironolactone AdvReac Severe Hyperkalemi Verified 10/25/23 09:36 a sulfamethoxazole AdvReac Severe SEVERE Verified 10/25/23 09:36 [From Bactrim] VOMITING trimethoprim [From Bactrim] AdvReac Severe SEVERE Verified 10/25/23 09:36 VOMITING JESSICA Inhibitors AdvReac Intermediate ARF Verified 10/25/23 09:36 diclofenac AdvReac Intermediate ankle Verified 10/25/23 09:36 swelling iron AdvReac Intermediate nausea/ Verified 10/25/23 09:36 VOMITING Consultations 01/17/24 17:26 ED Decision to Admit Stat Ordered Studies 01/17/24 16:11 CT abd pelvis wo con Stat Hospital Course (1) Acute kidney injury superimposed on CKD: 83 yo F admitted on 01/18/24 for weakness and diarrhea. (1) Acute kidney injury superimposed on chronic kidney disease: Plan: - BUN 35, creatinine 3.50 on admission (baseline 3.0), EGFR 11.5 --> Cr slowly improved and reached 3.1 by the time of discharge. - likely pre-renal due to volume loss from diarrhea and poor oral intake - a trial of gentle fluid resuscitation with Plasma-Lyte 80 mL/hr x 1 L was given (gentle fluids due to concurrent CHF) - Her home Bumex was held while inpatient -- I did detect mild crackles in bilateral lung bases -- but no LE edema - on day of discharge. I would like to give kidneys one more day off the bumex -- I directed her to resume home bumex dosing on 01/21/24. - Orders placed for repeat BMP in 3 days - Follows with Dr. Butler in [place] [facility] Outpatient items to do: follow up on BMP and clinical volume status (2) Diarrhea: Plan: - No recent antibiotic use - No blood in stool - Stool studies ordered, pending -- resolved without intervention (3) Anorexia: Plan: - Daughter reports significant loss of appetite recently - Dietitian is consulted for nutritional assessment (4) Controlled diabetes mellitus with neurologic complication, with long-term current use of insulin: Plan: A1c at 5.5 during hospital stay Patient normally takes Lantus 15 units HS Will reduce to Lantus 12u HS in the setting of ELADIA --> I recommend further reduction to 10 units given low A1c -- I would rather she run a bit high than induce hypoglycemia Outpatient items to do: follow A1c/adjust insulin dose as necessary (5) (HFpEF) heart failure with preserved ejection fraction: Plan: Last echocardiogram on 06/30 revealed LVEF at 60 to 65% - Held Bumex in the setting of IVF resuscitation and ELADIA - resume home dose on 01/21/24 (6) Paroxysmal atrial fibrillation: Plan: Rate controlled; in A-fib on arrival Continue Eliquis (7) Anemia of chronic disease: Plan: Chronic; Hgb 8.3 on arrival Suspect secondary to CKD Patient does receive Procrit shots at the [facility] every couple weeks Patient denies blood in the stool/urine Clinically, no signs of active bleeding on physical exam Trend H&H -- Fe studies showing low iron level (8) Generalized weakness: Plan: Patient reports she felt like she could not get out of bed on Monday 01/15 PT/OT evaluations appreciated --> she is able to go straight home -- resolved with improvement in viral gastroenteritis (9) Colon cancer: Plan: - Follows with [facility] (10) Hx of breast cancer: - follows with [facility] Total Time Total Time Spent Total Time Spent (In Minutes): 30 min Total Time Includes: Examination of the Patient, Discharge Planning and Medication Reconciliation Discharge Plan Discharge Items Patient Disposition: Home - Self-Care Reason For Visit: EALDIA Discharge Diagnosis: Acute Kidney Injury Activity: Resume your previous activity Non-emergency contact: Primary Care Provider Call non-emergency contact if: your symptoms worsen Follow-up/Referrals: Isaura Rashid CRNP [Primary Care Provider] - Diet: Low Sodium (2gm) Ambulatory Orders: Basic Metabolic Panel (Routine) Timeframe: 3 Days Location: Determined by Patient Ordered By: Gloria Laguna Attending Provider Instructions: You were hospitalized at [facility] for diarrhea and weakness. The cause of these symtpoms was thought to be from a viral gastroenteritis (viral infection of the GI tract). Fortunately, the diarrhea resolved and your strength improved while you were in the hospital. However, your kidneys did take a "hit," from being relatively dehydrated. The dehydration was likely due to the loss of water in your stool (ie from the diarrhea). Fortunately -- your kidney function improved while under our care --and it appeared to return close to its known baseline. Please have blood work drawn in 3 days after discharge to keep close tabs on your kidney function -- an order has been placed. Please RESUME taking your bumex -- 0.5mg twice daily -- on 01/21/24. This was temporarily held during your hospital admission, as it can be hard on the kidneys. Additionally, your blood sugar ran low while in the hospital -- your home insulin dose is likely a bit too high. I recommend you REDUCE your Lantus from 15 to 10 units nightly moving forward Pending Studies at Discharge: No Stand-Alone Forms: [facility], Smoking Cessation Medications and DC Order Prescriptions: Continued Procrit 2,000 unit/mL solution 2,000 unit subcut .P1ojumg bumetanide 0.5 mg tablet 0.5 mg PO BID Qty: 120 3RF atorvastatin 40 mg tablet 40 mg PO HS Qty: 90 3RF cilostazol 100 mg tablet 100 mg PO BID Qty: 180 3RF Rx Instructions: TAKE 1 TABLET TWICE A DAY calcitriol [Rocaltrol] 0.25 mcg capsule 0.25 mcg PO DAILY Qty: 90 3RF insulin aspart U-100 [Novolog FlexPen U-100 Insulin] 100 unit/mL (3 mL) insulin pen See Rx Instructions SQ TID Qty: 60 3RF Rx Instructions: use per sliding scale up to 60 units daily SQ isosorbide mononitrate 60 mg tablet extended release 24 hr 60 mg PO QAM Qty: 90 3RF Rx Instructions: TOTAL DOSE 90 MG--TAKES WITH 30 MG TAB. isosorbide mononitrate 30 mg tablet extended release 24 hr 30 mg PO QAM Qty: 90 3RF Rx Instructions: TOTAL DOSE 90 MG--TAKES WITH 60 MG TAB. alendronate [Fosamax] 70 mg tablet 70 mg PO WK Qty: 12 3RF Rx Instructions: SUNDAYS Eliquis 2.5 mg tablet 2.5 mg PO BID Qty: 180 3RF (DME) pen needle, diabetic [BD Ultra-Fine Short Pen Needle] 31 gauge x 5/16" needle See Dose Instructions .ROUTE .MEDSUPPLY Qty: 30 Rx Instructions: use 1 needle 4 x daily metoprolol succinate 200 mg tablet extended release 24 hr 200 mg PO BID Qty: 180 3RF omega [id number]-dmr-fish oil [Fish Oil] 1,000 mg (120 mg-180 mg) Capsule 1 cap PO QPM cyanocobalamin (vitamin B-12) 1,000 mcg Capsule 1,000 mcg PO QAM magnesium oxide 400 mg Capsule 400 mg PO BID diclofenac sodium [Voltaren Arthritis Pain] 1 % gel 2 g topical QID PRN (Reason: arthritic pain ) Qty: 100 3RF Rx Instructions: apply to single elbow, wrist or hand; for hand includes palm/fingers/back of hand hydralazine 100 mg tablet 100 mg PO TID Changed insulin glargine [Lantus Solostar U-100 Insulin] 100 unit/mL (3 mL) insulin pen 10 unit subcut HS 30 Days Qty: 300 0RF Discharge Orders: Discharge Order (Routine); Ordered 01/20/24 Ordered By: Gloria Kebede Admission Data Admit Date/Time: 01/19/24 17:30 Attending Provider: Gloria Kebede Admit Provider: Donaldo Guzman Primary Care Provider: Isaura Rashid Other Providers: Donaldo Guzman
[2024-01-20 11:14] VITALS: BP 142/54; PULSE 68; TEMP 98.8; O2SAT 97
== END 2024-01-20 12:00 | disposition home or self-care (01) | DRG 683 ==
LOC: 2W 14:02 → ED 14:02 → SUATTDRO 18:44 → 2W 20:02 → 3W 01-19 23:49

== ENCOUNTER 2024-01-23 18:08 | Observation (INO) ==
--- NOTE | 2024-01-23 18:25 | ED Triage Note ---
Date of Service January 23, 2024 Provider in Triage Author: Tru Farah History of Present Illness This patient was briefly evaluated while in triage. An abbreviated physical exam was performed. This patient is a 83-year-old Female who was referred to the ED by Dr. Butler, for evaluation of an acute kidney injury. The patient was admitted 1 week ago for dehydration. The patient has had recent repeat lab work showing a worsening creatinine from 2.5-3.8. The patient currently denies any pain, nausea or belly/back pain. Patient reports that she is able to urinate, having gone to the bathroom twice today. Physical Exam CONSTITUTIONAL: Healthy and well nourished. Alert and oriented X 3. HEENT: No scleral icterus or conjunctival injection. RESPIRATORY: Clear to auscultation bilaterally with no wheezing, crackles, rhonchi or stridor. CARDIOVASCULAR: Regular rate and rhythm with no murmurs, rubs or gallops. MUSCULOSKELETAL: Full range of motion of all joints without discomfort. INTEGUMENTARY: No rash or other significant dermatologic conditions noted. HEMATOLOGIC: No ecchymosis or petechiae. PSYCHIATRIC: Positive affect. NEUROLOGIC: No focal neurologic deficits noted. Initial orders for labs and / or imaging were placed and patient was placed in the waiting area until a bed is available. Please see further documentation for the full ED course.
[2024-01-23] MEDS: SODIUM CHLORIDE 0.9% 500 ML IV ONE (18:42)
[2024-01-23 19:21] LABS: Basophils # (auto) 0.01 K/uL (0.00-0.20); Basophils % (auto) 0.1 %; Hematocrit (blood only) 29.5 % (37.0-47.0); Hemoglobin 9.3 g/dl (12.0-16.0); Immature Granulocytes # (auto) 0.04 K/uL (0.01-0.20); Immature Granulocytes % (auto) 0.5 %; Lymphocytes # (auto) 0.84 K/uL (1.20-3.40); Lymphocytes % (auto) 10.6 %; Mean Corpuscular Hemoglobin 31.8 pg (25.0-34.0); Mean Corpuscular Hgb Conc 31.5 g/dL (32.0-36.0); Monocytes # (auto) 0.62 K/uL (0.11-0.59); Monocytes % (auto) 7.8 %; Neutrophils # (auto) 6.39 K/uL (1.40-6.50); Platelet Count 250 K/uL (130-400); RDW Coefficient of Variation 14.8 % (11.5-14.5); RDW Standard Deviation 53.9 fL (36.4-46.3); Red Blood Count 2.92 M/uL (4.20-5.40)
[2024-01-23 19:39] LABS: Alanine Aminotransferase 8 U/L (7-52); Albumin Globulin Ratio 1.1 (0.9-2); Albumin Level 3.6 gm/dl (3.4-5.0); Alkaline Phosphatase 61 U/L (34-104); Anion Gap 11 (3-11); Aspartate Aminotransferase 16 U/L (13-39); BUN Creatinine Ratio 14.1 (10-20); Bilirubin,Total 0.8 mg/dl (0.2-1.0); Blood Urea Nitrogen 55 mg/dl (6-23); Calcium 10.9 mg/dl (8.6-10.3); Carbon Dioxide 25 mmol/L (21-32); Chloride 98 mmol/L (98-107); Est GFR (African American) 11.8 ml/min; Est GFR (Non-African American) 10.1 ml/min; Globulin 3.3 gm/dl (2.5-4.0); Glucose 215 mg/dl (70-99(Fasting)); Magnesium 2.3 mg/dl (1.7-2.4); Potassium 4.5 mmol/L (3.5-5.1); Sodium 134 mmol/L (136-145); Total Protein 6.9 gm/dl (6.0-8.3)
[2024-01-23 19:45] LABS: Troponin I High Sensitivity 14.9 pg/ml (0-14)
[2024-01-23 19:54] LABS: INR 0.9 (0.9-1.1); Prothrombin Time 10.3 Seconds (9.0-12.0)
[2024-01-23] MEDS: SODIUM CHLORIDE 0.9% 1,000 ML IV SCH (19:59)
--- NOTE | 2024-01-23 20:19 | CT Scan Report ---
Exam(s): CT ABDOMEN + PELVIS Without Contrast EXAM: CT Abdomen and Pelvis Without Intravenous Contrast CLINICAL HISTORY: Reason for exam: cooper, DEHYDRATION. TECHNIQUE: Axial computed tomography images of the abdomen and pelvis without intravenous contrast. CTDI is 27.22 mGy and DLP is 1281.19 mGy-cm. Automated exposure control was utilized for the study. A dose lowering technique was utilized adhering to the principles of ALARA. COMPARISON: No relevant prior studies available. FINDINGS: Lung bases: Unremarkable. No mass. No consolidation. Pleural space: Bilateral pleural effusions. Heart: Cardiomegaly. ABDOMEN: Liver: Unremarkable. Gallbladder and bile ducts: Unremarkable. No calcified stones. No ductal dilation. Pancreas: Unremarkable. No ductal dilation. Spleen: Unremarkable. No splenomegaly. Adrenals: Unremarkable. No mass. Kidneys and ureters: Diffuse bilateral renal atrophy. 2.5 cm left renal cyst. 2.6 cm right renal cyst. No obstructing stones. No hydronephrosis. Stomach and bowel: There is a right paracentral midline anterior abdominal wall hernia containing a loop of unobstructed:. Postoperative changes of the right hemicolon. No mucosal thickening. PELVIS: Appendix: No findings to suggest acute appendicitis. Bladder: Unremarkable. No stones. Reproductive: Unremarkable as visualized. ABDOMEN and PELVIS: Intraperitoneal space: Unremarkable. No free air. No significant fluid collection. Bones/joints: Prominent partially calcified uterus bone windows demonstrate multilevel degenerative disease of the lumbar spine. No acute fracture. No dislocation. Soft tissues: See above. Vasculature: Diffuse vascular calcifications. No abdominal aortic aneurysm. Lymph nodes: Unremarkable. No enlarged lymph nodes. IMPRESSION: Bilateral pleural effusions. Other chronic changes as described above Electronically signed by: Jason Cheatham MD 01/23/24 20:18 PM
--- NOTE | 2024-01-23 20:58 | History & Physical Report ---
Date of Service January 23, 2024 Assessment & Plan (1) Acute kidney injury superimposed on CKD: (2) Anemia of chronic disease: (3) Paroxysmal atrial fibrillation: (4) Controlled diabetes mellitus with neurologic complication, with long-term current use of insulin: (5) (HFpEF) heart failure with preserved ejection fraction: (6) Dyslipidemia (high LDL; low HDL): (7) CKD (chronic kidney disease), stage IV: (8) Hyperparathyroidism: (9) Pleural effusion: Plan Acute kidney injury superimposed on CKD- Creatinine 3.89 admission, after recent discharge 3.50, upon distant baseline 2.50 NSS at 80 mL/h x 1 L Hold bumetanide Repeat laboratories in a.m. CAD/hypertension/HFpEF- The patient will be admitted to telemetry for serial cardiac enzymes, serial EKG's, cardiac rhythm monitoring Continue apixaban, hydralazine, isosorbide mononitrate, metoprolol succinate Diabetes mellitus- Continue glargine 10 units at bedtime Placed on Accu-Cheks with NovoLog SSI PAD- Continue Cilostazol Hyperlipidemia- Continue atorvastatin History of Present Illness Chief Complaint: The patient is referred to the emergency department after having outpatient laboratories revealing a worsening creatinine Primary Care Provider: MATT Pelletier The patient is a 83-year-old female with a past medical history including urine tract infection, anemia chronic disease, breast cancer, colon cancer, PAF, ELADIA on CKD, diabetes mellitus, peripheral neuropathy, HFpEF, brain TIA, DVT, PVD, hyperparathyroidism, history of CABG, on chronic anticoagulation. She was most recently mated to [facility] from 01/16-01/20/2024, with discharge creatinine of 3.50. Outpatient creatinine was 3.89, and she was referred to the ED due to baseline creatinine of 2.50 a few months ago. The patient herself has no specific complaints, and reports that she has been eating and drinking as per usual Allergies Allergy/AdvReac Type Severity Reaction Status Date / Time spironolactone AdvReac Severe Hyperkalemi Verified 10/25/23 09:36 a sulfamethoxazole AdvReac Severe SEVERE Verified 10/25/23 09:36 [From Bactrim] VOMITING trimethoprim [From Bactrim] AdvReac Severe SEVERE Verified 10/25/23 09:36 VOMITING JESSICA Inhibitors AdvReac Intermediate ARF Verified 10/25/23 09:36 diclofenac AdvReac Intermediate ankle Verified 10/25/23 09:36 swelling iron AdvReac Intermediate nausea/ Verified 10/25/23 09:36 VOMITING Home Medications Medication Instructions Recorded Confirmed Type cyanocobalamin (vitamin B-12) 1,000 mcg PO QAM 12/28/17 01/17/24 History 1,000 mcg capsule magnesium oxide 400 mg PO BID 12/28/17 01/17/24 History omega 0-nep-emo-fish oil 1,000 mg 1 cap PO QPM 12/28/17 01/17/24 History (120 mg-180 mg) capsule (Fish Oil) pen needle, diabetic 31 gauge x #30 ea 11/22/18 10/25/23 History 516" (BD Ultra-Fine Short Pen Needle) epoetin jase 2,000 unit/mL 2,000 unit subcut .[id number] 12/02/20 01/17/24 History injection solution (Procrit) apixaban 2.5 mg tablet (Eliquis) 2.5 mg PO BID #180 tabs 01/29/23 01/17/24 Rx bumetanide 0.5 mg tablet 0.5 mg PO BID #120 tabs 05/15/23 01/17/24 Rx atorvastatin 40 mg tablet 40 mg PO HS #90 tabs 05/23/23 01/17/24 Rx cilostazol 100 mg tablet 100 mg PO BID #180 tabs 06/05/23 01/17/24 Rx diclofenac sodium 1 % topical gel 2 g topical QID PRN arthritic pain 06/12/23 01/17/24 Rx (Voltaren Arthritis Pain) #100 grams metoprolol succinate 200 mg 200 mg PO BID #180 tabs 06/13/23 01/17/24 Rx tablet,extended release 24 hr calcitriol 0.25 mcg capsule 0.25 mcg PO DAILY #90 caps 09/10/23 01/17/24 Rx (Rocaltrol) insulin aspart U-100 100 unit/mL See Rx Instructions subcut TID #60 10/30/23 01/17/24 Rx (3 mL) subcutaneous pen (Novolog mL FlexPen U-100 Insulin aspart) isosorbide mononitrate 30 mg 30 mg PO QAM #90 tabs 12/19/23 01/17/24 Rx tablet,extended release 24 hr isosorbide mononitrate 60 mg 60 mg PO QAM #90 tabs 12/19/23 01/17/24 Rx tablet,extended release 24 hr alendronate 70 mg tablet (Fosamax) 70 mg PO WK #12 tabs 12/25/23 01/17/24 Rx hydralazine 100 mg tablet 100 mg PO TID 01/17/24 01/17/24 History insulin glargine 100 unit/mL (3 10 unit (0.1 mL) subcut HS 30 days 01/20/24 01/17/24 Rx mL) subcutaneous pen (Lantus #300 mL Solostar U-100 Insulin) Past Med/Surg History Problem List Pleural effusion UTI (urinary tract infection) Acute kidney injury superimposed on CKD (Acute) Anorexia Anemia of chronic disease Hx of breast cancer right breast (Jun 2018). surgical intervention + radiation therapy Colon cancer Paroxysmal atrial fibrillation Acute kidney injury superimposed on chronic kidney disease Controlled diabetes mellitus with neurologic complication, with long-term current use of insulin S/P carpal tunnel release Left wrist- 10/24/[address] Lencho FRAZIER Generalized weakness Acute heart failure with preserved ejection fraction Hypoxia (Acute) Congestive heart failure (Acute) Diarrhea Hypoxia Elevated troponin Fungal infection of skin of abdomen Swelling of both lower extremities Volume overload Carpal tunnel syndrome, left Paresthesia of right lower extremity Neuroforaminal stenosis of lumbosacral spine Lumbosacral spondylosis Paresthesia (Acute) Brain TIA (Acute) (HFpEF) heart failure with preserved ejection fraction Acute diastolic CHF (congestive heart failure) (Acute) DVT (deep venous thrombosis) Right upper leg DVT -- March 2020 -- placed on eliquis.-NO ISSUES SINCE Recent u/s from 07/07/20= shows continued evidence of right common femoral DVT. Right knee DJD PVD (peripheral vascular disease) on Pletal Malignant neoplasm of upper-outer quadrant of right breast in female, estrogen receptor positive (Chronic) Vitamin D deficiency (Chronic) Obesity (BMI 35.0-39.9 without comorbidity) (Acute) Dyslipidemia (high LDL; low HDL) (Acute) Dysesthesia (Acute) History of total left knee replacement Thickened endometrium S/P right colectomy Status post hysteroscopy CKD (chronic kidney disease), stage IV Hyperparathyroidism HOPPER (dyspnea on exertion) Osteoporosis Chronic anticoagulation History of left knee replacement History of colon cancer 2020- adenocarcinoma Edema (Acute) S/P laparoscopic colectomy (08/26/20) Laparoscopic Extended Hemicolectomy, Extensive enterolysis - Sohail Quiroga, DO History of coronary artery bypass graft 3 [place] [place] Chronic kidney disease Urinary retention Type 2 diabetes mellitus with neurologic complication, with long-term current use of insulin Hypertension CAD (coronary artery disease) s/p 3 vessel CABG 2006 New onset a-fib Small bowel obstruction 2020 > after colon surgery Ileus Encounter for pre-operative examination Anemia Mild- has been evaluated by heme/onc for recent dx colon cancer Lumbar spinal stenosis Peripheral vascular disease Hx of acute respiratory failure WITH GB SURG 04/21/09 [facility] POST OP RESPIRATORY FAILURE-HAD TO BE VENTILATED,EXTUBATED NEXT DAY-PER PT SLOW TO WAKE UP IN GENERAL Right breast partial mastectomy 08/29/18 under [place] with LMA #4 x 3 attempts- atraumatic with good seal- no other issues noted Osteoarthritis Venous stasis dermatitis LLE Chronic kidney disease STAGE 3-FOLLOWS WITH DR LIND Last seen by nephro 07/20/20- kidney function stable at that time Hyperlipidemia Surgical History Hx of colonoscopy Hx of lymph node excision right axillary Status post dilation and curettage 08/26/20 Dr. Cathy Calderon- Hysteroscopy, Dilation and Curettage, Possible Polypectomy History of esophagogastroduodenoscopy (EGD) S/P epidural steroid injection History of partial mastectomy of right breast no chemo, just radiation Status post trigger finger release X2 History of total knee replacement LEFT 2018 History of adverse response to anesthesia SLOW TO WAKE. PT HAD RESP FAILURE S/P KYLAH IN 2008 History of Moh's micrographic surgery for skin cancer S/P tendon repair R ARM History of cholecystectomy History of dilatation and curettage History of bilateral tubal ligation History of cataract surgery BL History of cardiac cath 2006 NO STENTS-[facility] Family History Mother , age 38 heart disease due to rheumatic fever No problems noted. Father , age 73 heart disease No problems noted. Sister No problems noted. Sister No problems noted. Sister No problems noted. Sister No problems noted. Sister No problems noted. 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 Beliefs That Will Affect Care: None marital status: / Current Living Situation: Family Current Living Situation Comment: Lives at home with daughter current occupational status: retired How many Children do You have: 2 Feels Safe at Home: Yes Childhood Exposure to Second-Hand Smoke: No Diet: low salt and regular caffeine: No during the past year weight has: remained stable Dental Care, Regularly: No Physical Activity Frequency: 3-4 Times per Week Seatbelt Use: always Sunscreen Use: Yes Do you think of yourself as: straight/heterosexual Gender Identity: Female Assistive Devices: Cane and Walker Review of Systems Review of Systems: The patient denies chest pain, palpitations, shortness of breath, dyspnea on exertion, cough, lower extremity swelling, sore throat, fevers, chills, sweats, weight change, fatigue, nausea, vomiting, diarrhea , constipation, abdominal pain, pelvic pain, blood in urine or stool, dysuria, urinary frequency or urgency, lightheadedness, dizziness, headache, memory loss, loss of consciousness, rash, abnormal bruising or bleeding, imbalance, focal or generalized weakness, numbness or tingling in arms or legs, generalized arthralgias or myalgias, back or neck pain, or night sweats. The review of systems is otherwise negative other than for that already noted above, and at least 10 systems have been reviewed. Physical Exam Physical Exam: The patient is awake, alert and oriented 3, well developed and well nourished, normocephalic and atraumatic, lying in bed and in no acute distress. HEENT--PERRL, EOMI, mucous membranes and oropharynx normal Neck--supple. No JVD. No bruits. Thyroid normal, trachea midline, no adenopathy. Heart--normal S1 and S2. No murmurs, rubs or gallops. Lungs--clear bilaterally, no respiratory distress, no accessory muscle use. Abdomen--normal bowel sounds and soft. Nontender. Nondistended, no hernias or masses, no organomegaly. Extremities--no cyanosis or clubbing. No edema. There are good distal pulses b/l. Dermatologic--normal skin turgor, normal color, no abnormal lymph nodes, no rash. Neurologic--cranial nerves II through XII grossly intact. Rheumatologic--normal range of motion. Psychiatric--normal affect. Results & Data Results & Data Vital Signs (Past 12 Hours) Vital Signs Temp Pulse Resp BP Pulse Ox O2 Del Method 01/23/24 20:09 67 16 94 Room Air 01/23/24 19:21 65 01/23/24 18:21 36.5 C 78 20 145/65 H 96 Room Air Laboratory Results Laboratory Results WBC 7.90 K/ul (4.8-10.8) 01/23/24 18:49 RBC 2.92 M/uL (4.20-5.40) L 01/23/24 18:49 Hgb 9.3 g/dl (12.0-16.0) L 01/23/24 18:49 Hct 29.5 % (37.0-47.0) L 01/23/24 18:49 MCV 101.0 fL (80.0-100.0) H 01/23/24 18:49 MCH 31.8 pg (25.0-34.0) 01/23/24 18:49 MCHC 31.5 g/dL (32.0-36.0) L 01/23/24 18:49 RDW Std Deviation 53.9 fL (36.4-46.3) H 01/23/24 18:49 RDW Coeff of Kirsty 14.8 % (11.5-14.5) H 01/23/24 18:49 Plt Count 250 K/uL (130-400) 01/23/24 18:49 MPV 10.0 fL (9.4-12.4) 01/23/24 18:49 Immature Gran % (Auto) 0.5 % 01/23/24 18:49 Neut % (Auto) 81.0 % 01/23/24 18:49 Lymph % (Auto) 10.6 % 01/23/24 18:49 [place] % (Auto) 7.8 % 01/23/24 18:49 Eos % (Auto) 0.0 % 01/23/24 18:49 Baso % (Auto) 0.1 % 01/23/24 18:49 Neut # (Auto) 6.39 K/uL (1.40-6.50) 01/23/24 18:49 Lymph # (Auto) 0.84 K/uL (1.20-3.40) L 01/23/24 18:49 [place] # (Auto) 0.62 K/uL (0.11-0.59) H 01/23/24 18:49 Eos # (Auto) 0.00 K/uL (0.00-0.50) 01/23/24 18:49 Baso # (Auto) 0.01 K/uL (0.00-0.20) 01/23/24 18:49 Immature Gran # (Auto) 0.04 K/uL (0.01-0.20) 01/23/24 18:49 PT 10.3 Seconds (9.0-12.0) 01/23/24 18:49 INR 0.9 (0.9-1.1) 01/23/24 18:49 Sodium 134 mmol/L (136-145) L 01/23/24 18:49 Potassium 4.5 mmol/L (3.5-5.1) 01/23/24 18:49 Chloride 98 mmol/L (98-107) 01/23/24 18:49 Carbon Dioxide 25 mmol/L (21-32) 01/23/24 18:49 Anion Gap 11 (3-11) 01/23/24 18:49 BUN 55 mg/dl (6-23) H 01/23/24 18:49 Creatinine 3.89 mg/dl (0.6-1.2) H 01/23/24 18:49 Est Cr Clr Drug Dosing Not Reportable 01/23/24 18:49 Est GFR ( Amer) 11.8 ml/min 01/23/24 18:49 Est GFR (Non-Af Amer) 10.1 ml/min 01/23/24 18:49 BUN/Creatinine Ratio 14.1 (10-20) 01/23/24 18:49 Glucose 215 mg/dl (70-99(Fasting)) H 01/23/24 18:49 Lactate 2.4 mmol/L (0.4-2.0) H* 01/23/24 19:19 Calcium 10.9 mg/dl (8.6-10.3) H 01/23/24 18:49 Magnesium 2.3 mg/dl (1.7-2.4) 01/23/24 18:49 Total Bilirubin 0.8 mg/dl (0.2-1.0) 01/23/24 18:49 AST 16 U/L (13-39) 01/23/24 18:49 ALT 8 U/L (7-52) 01/23/24 18:49 Alkaline Phosphatase 61 U/L (34-104) 01/23/24 18:49 Troponin I High Sens 14.9 pg/ml (0-14) H 01/23/24 18:49 B-Natriuretic Peptide 572 pg/ml (0-100) H 01/23/24 18:49 Total Protein 6.9 gm/dl (6.0-8.3) 01/23/24 18:49 Albumin 3.6 gm/dl (3.4-5.0) 01/23/24 18:49 Globulin 3.3 gm/dl (2.5-4.0) 01/23/24 18:49 Albumin/Globulin Ratio 1.1 (0.9-2) 01/23/24 18:49 Procalcitonin 0.06 ng/ml (0-0.5) 01/23/24 18:49 Impressions Abdomen/Pelvis CT 01/23/24 19:04 Exam(s): CT ABDOMEN + PELVIS Without Contrast EXAM: CT Abdomen and Pelvis Without Intravenous Contrast CLINICAL HISTORY: Reason for exam: eladia, DEHYDRATION. TECHNIQUE: Axial computed tomography images of the abdomen and pelvis without intravenous contrast. CTDI is 27.22 mGy and DLP is 1281.19 mGy-cm. Automated exposure control was utilized for the study. A dose lowering technique was utilized adhering to the principles of ALARA. COMPARISON: No relevant prior studies available. FINDINGS: Lung bases: Unremarkable. No mass. No consolidation. Pleural space: Bilateral pleural effusions. Heart: Cardiomegaly. ABDOMEN: Liver: Unremarkable. Gallbladder and bile ducts: Unremarkable. No calcified stones. No ductal dilation. Pancreas: Unremarkable. No ductal dilation. Spleen: Unremarkable. No splenomegaly. Adrenals: Unremarkable. No mass. Kidneys and ureters: Diffuse bilateral renal atrophy. 2.5 cm left renal cyst. 2.6 cm right renal cyst. No obstructing stones. No hydronephrosis. Stomach and bowel: There is a right paracentral midline anterior abdominal wall hernia containing a loop of unobstructed:. Postoperative changes of the right hemicolon. No mucosal thickening. PELVIS: Appendix: No findings to suggest acute appendicitis. Bladder: Unremarkable. No stones. Reproductive: Unremarkable as visualized. ABDOMEN and PELVIS: Intraperitoneal space: Unremarkable. No free air. No significant fluid collection. Bones/joints: Prominent partially calcified uterus bone windows demonstrate multilevel degenerative disease of the lumbar spine. No acute fracture. No dislocation. Soft tissues: See above. Vasculature: Diffuse vascular calcifications. No abdominal aortic aneurysm. Lymph nodes: Unremarkable. No enlarged lymph nodes. IMPRESSION: Bilateral pleural effusions. Other chronic changes as described above Electronically signed by: Jason Cheatham MD 01/23/24 20:18 PM Code Status & VTE Plan Code Status Full code VTE Prophylaxis Plan VTE Prophylaxis will be ordered: Yes PG Care Time/CCT Total # of Minutes Spent Total Time Spent with Patient: Total time spent is greater than 50% in coordination of care (as documented) at patient's floor/unit and/or counseling patient: Coding Level of Care Code 64794 INT INP/OBS CARE 3/75MIN Diagnoses Acute kidney injury superimposed on CKD N17.9; N18.9 Anemia of chronic disease D63.8 Paroxysmal atrial fibrillation I48.0 Controlled diabetes mellitus with neurologic complication, with long-term current use of insulin E11.49; Z79.4 (HFpEF) heart failure with preserved ejection fraction I50.30 Dyslipidemia (high LDL; low HDL) E78.5 CKD (chronic kidney disease), stage IV N18.4 Hyperparathyroidism E21.3 Pleural effusion J90
--- NOTE | 2024-01-23 21:42 | Emergency Department Note ---
Impression & Plan COOPER (acute kidney injury) ED Provider Note NAME: REBECCA BARKSDALE AGE: 83 SEX: Female INFORMANT: Patient ED PROVIDER(S): Caesar Bond MD CHIEF COMPLAINT: Abnormal labs PLAN: Disposition: Admitted Outpatient prescription management: none Referral: None MEDICAL DECISION MAKING: Patient was referred by nephrology due to worsening renal function and they requested admission for hydration. Patient is without complaints at this time. She actually notes that she has been swallowing better recently and family confirms. Labs were obtained. Patient has anemia on CBC but no leukocytosis. Chemistry panel revealed an elevated creatinine which has increased slightly from outpatient labs. She is at 3.89. Patient was gently hydrated. Cardiac troponin was borderline but the patient has no chest pain. Likely related to her renal function. Patient's BNP has improved since prior as well. Procalcitonin is negative. Lactate is borderline but the patient has no signs or symptoms of infection. Will monitor. Consultation was made with Dr. John Holland of the [facility] service. Patient was evaluated in the ER for further management. Care/management discussed with: remarketing manager Level of care consideration(s): After review of the information above and other included data, I feel the patient requires escalation of care to admission Triage Nursing notes: reviewed and agree them. Vital Signs: reviewed and remarkable for no significant abnormalities Additional History obtained from: Family. Family confirms the patient has started to eat better and is tolerating p.o. fluids. Chronic Medical/Social Conditions affecting care: CKD Prior/ Outside/ External records reviewed: none Differential Diagnosis: COOPER, infection, dehydration, metabolic abnormality, hypo/hyperglycemia, electrolyte disturbance, anemia, hypoxia, cardiac sources, intracerebral event, toxicologic, neurologic, as well as other pathologies. Diagnostics, independently interpreted by me: ECG: Twelve-lead ECG reveals A-fib at 57 bpm with PVC. LAD. No ischemia. Cardiac Monitoring: Cardiac monitoring ordered by me: The patient was placed on continuous cardiac monitoring and observed. It revealed a atrial fibrillation at 60 beats per minute without ectopy or evidence of dysrhythmia. Medical decision rules: none Imaging studies: CT imaging of the abdomen pelvis reveals no evidence of hydronephrosis or acute intra-abdominal process. HPI: 83 year old Female arrives for evaluation of worsening renal function/abnormal labs. Patient has been monitored due to recent problems with COOPER. Outpatient providers including on-call nephrology, Dr. Lind were involved. Patient was directed to the ER today for admission due to increasing creatinine by nephrology. Patient denies any pain. Pt denies headache, fevers, chills, neck pain, chest pain, breathing difficulties, nausea, vomiting, abdominal pain, back pain, melena, hematochezia, urinary symptoms, numbness, focal weakness, lymphadenopathy, rash, or other complaints.. PAST MEDICAL HISTORY: See Below, CHF, breast cancer, A-fib PAST SURGICAL HISTORY: See Below, SOCIAL HISTORY: See Below, retired HOME MEDICATIONS: See Below ALLERGIES: See Below VITALS: See Below PHYSICAL EXAMINATION: GENERAL: Awake, alert, boy-[id number]-[id number], in no distress HENT: Normocephalic, atraumatic. Oropharynx unremarkable. EYES: Normal conjunctiva. Sclera non-icteric. NECK: Inspection normal. Non-tender. Supple. No nuchal rigidity. FROM. No masses. RESPIRATORY: Clear to auscultation. No wheezes. No rales. Normal respiratory effort. CARDIAC: Normal rate. Irregular rhythm. Extremities warm and well perfused. Pulses equal. No JVD. GI: Soft, non-distended. No tenderness to palpation. No rebound or guarding. No masses. RECTAL: Deferred. MUSCULOSKELETAL: Atraumatic. Chest examination reveals no tenderness. The back is symmetrical on inspection without obvious abnormality. There is no CVA tenderness to palpation. No joint edema. LOWER EXTREMITIES: Calves are equal size bilaterally and non-tender. 1+ edema. Chronic venous discoloration. NEURO: Normal sensorium. No sensory or motor deficits noted. SKIN: No rash or jaundice noted. PROCEDURES: none CRITICAL CARE: none OBSERVATION NOTE: none Past Med/Surg History Problem List COOPER (acute kidney injury) (Acute) Pleural effusion UTI (urinary tract infection) Acute kidney injury superimposed on CKD (Acute) Anorexia Anemia of chronic disease Hx of breast cancer right breast (Jun 2018). surgical intervention + radiation therapy Colon cancer Paroxysmal atrial fibrillation Acute kidney injury superimposed on chronic kidney disease Controlled diabetes mellitus with neurologic complication, with long-term current use of insulin S/P carpal tunnel release Left wrist- 10/24/[address] Lencho FRAZIER Generalized weakness Acute heart failure with preserved ejection fraction Hypoxia (Acute) Congestive heart failure (Acute) Diarrhea Hypoxia Elevated troponin Fungal infection of skin of abdomen Swelling of both lower extremities Volume overload Carpal tunnel syndrome, left Paresthesia of right lower extremity Neuroforaminal stenosis of lumbosacral spine Lumbosacral spondylosis Paresthesia (Acute) Brain TIA (Acute) (HFpEF) heart failure with preserved ejection fraction Acute diastolic CHF (congestive heart failure) (Acute) DVT (deep venous thrombosis) Right upper leg DVT -- March 2020 -- placed on eliquis.-NO ISSUES SINCE Recent u/s from 07/07/20= shows continued evidence of right common femoral DVT. Right knee DJD PVD (peripheral vascular disease) on Pletal Malignant neoplasm of upper-outer quadrant of right breast in female, estrogen receptor positive (Chronic) Vitamin D deficiency (Chronic) Obesity (BMI 35.0-39.9 without comorbidity) (Acute) Dyslipidemia (high LDL; low HDL) (Acute) Dysesthesia (Acute) History of total left knee replacement Thickened endometrium S/P right colectomy Status post hysteroscopy CKD (chronic kidney disease), stage IV Hyperparathyroidism HOPPER (dyspnea on exertion) Osteoporosis Chronic anticoagulation History of left knee replacement History of colon cancer 2020- adenocarcinoma Edema (Acute) S/P laparoscopic colectomy (08/26/20) Laparoscopic Extended Hemicolectomy, Extensive enterolysis - Sohail Quiroga DO History of coronary artery bypass graft 3 VESSELS 2006-[facility] [place] Medical History Chronic kidney disease Urinary retention Type 2 diabetes mellitus with neurologic complication, with long-term current use of insulin Hypertension CAD (coronary artery disease) s/p 3 vessel CABG 2006 New onset a-fib Small bowel obstruction 2020 > after colon surgery Ileus Encounter for pre-operative examination Anemia Mild- has been evaluated by heme/onc for recent dx colon cancer Lumbar spinal stenosis Peripheral vascular disease Hx of acute respiratory failure WITH GB SURG 04/21/09 [facility] POST OP RESPIRATORY FAILURE-HAD TO BE VENTILATED,EXTUBATED NEXT DAY-PER PT SLOW TO WAKE UP IN GENERAL Right breast partial mastectomy 08/29/18 under [place] with LMA #4 x 3 attempts- atraumatic with good seal- no other issues noted Osteoarthritis Venous stasis dermatitis LLE Chronic kidney disease STAGE 3-FOLLOWS WITH DR LIND Last seen by nephro 07/20/20- kidney function stable at that time Hyperlipidemia Surgical History Hx of colonoscopy Hx of lymph node excision right axillary Status post dilation and curettage 08/26/20 Dr. Cathy Calderon- Hysteroscopy, Dilation and Curettage, Possible Polypectomy History of esophagogastroduodenoscopy (EGD) S/P epidural steroid injection History of partial mastectomy of right breast no chemo, just radiation Status post trigger finger release X2 History of total knee replacement LEFT 2018 History of adverse response to anesthesia SLOW TO WAKE. PT HAD RESP FAILURE S/P KYLAH IN 2008 History of Moh's micrographic surgery for skin cancer S/P tendon repair R ARM History of cholecystectomy History of dilatation and curettage History of bilateral tubal ligation History of cataract surgery BL History of cardiac cath 2006 NO STENTS-[facility] Family History Mother , age 38 heart disease due to rheumatic fever No problems noted. Father , age 73 heart disease No problems noted. Sister No problems noted. Sister No problems noted. Sister No problems noted. Sister No problems noted. Sister No problems noted. Daughter Myocardial infarction Breast cancer Family history of reaction to anesthesia SLOW TO WAKE UP/PONV Daughter Heart disease Other No family history of adverse response to anesthesia Denies family history of Ovarian cancer Prostate cancer Colorectal cancer Social History Smoking Status: Never smoker Second Hand Exposure: No; Do You Dip or Chew Tobacco: No; Hx Alcohol Use: No Hx Substance Use: No Preferred Language: Czech Communication Ability: Effective Visual Impairment: Limited Hearing Ability: Normal Medical Detailist Required: No Beliefs That Will Affect Care: None marital status: / Current Living Situation: Family Current Living Situation Comment: Lives at home with daughter current occupational status: retired How many Children do You have: 2 Feels Safe at Home: Yes Childhood Exposure to Second-Hand Smoke: No Diet: low salt and regular caffeine: No during the past year weight has: remained stable Dental Care, Regularly: No Physical Activity Frequency: 3-4 Times per Week Seatbelt Use: always Sunscreen Use: Yes Do you think of yourself as: straight/heterosexual Gender Identity: Female Assistive Devices: Cane and Walker Allergies Allergies Allergy/AdvReac Type Severity Reaction Status Date / Time spironolactone AdvReac Severe Hyperkalemi Verified 10/25/23 09:36 a sulfamethoxazole AdvReac Severe SEVERE Verified 10/25/23 09:36 [From Bactrim] VOMITING trimethoprim [From Bactrim] AdvReac Severe SEVERE Verified 10/25/23 09:36 VOMITING JESSICA Inhibitors AdvReac Intermediate ARF Verified 10/25/23 09:36 diclofenac AdvReac Intermediate ankle Verified 10/25/23 09:36 swelling iron AdvReac Intermediate nausea/ Verified 10/25/23 09:36 VOMITING Home Meds Home Medications Medication Instructions Recorded Confirmed cyanocobalamin (vitamin B-12) 1,000 mcg PO QAM 12/28/17 01/17/24 1,000 mcg capsule magnesium oxide 400 mg PO BID 12/28/17 01/17/24 omega 5-fgj-jov-fish oil 1,000 mg 1 cap PO QPM 12/28/17 01/17/24 (120 mg-180 mg) capsule (Fish Oil) pen needle, diabetic 31 gauge x #30 ea 11/22/18 10/25/2309/19" (BD Ultra-Fine Short Pen Needle) epoetin jase 2,000 unit/mL 2,000 unit subcut .[id number] 12/02/20 01/17/24 injection solution (Procrit) hydralazine 100 mg tablet 100 mg PO TID 01/17/24 01/17/24 Previous Rx's Medication Instructions Recorded apixaban 2.5 mg tablet (Eliquis) 2.5 mg PO BID #180 tabs 01/29/23 bumetanide 0.5 mg tablet 0.5 mg PO BID #120 tabs 05/15/23 atorvastatin 40 mg tablet 40 mg PO HS #90 tabs 05/23/23 cilostazol 100 mg tablet 100 mg PO BID #180 tabs 06/05/23 diclofenac sodium 1 % topical gel 2 g topical QID PRN arthritic pain 06/12/23 (Voltaren Arthritis Pain) #100 grams metoprolol succinate 200 mg 200 mg PO BID #180 tabs 06/13/23 tablet,extended release 24 hr calcitriol 0.25 mcg capsule 0.25 mcg PO DAILY #90 caps 09/10/23 (Rocaltrol) insulin aspart U-100 100 unit/mL See Rx Instructions subcut TID #60 10/30/23 (3 mL) subcutaneous pen (Novolog mL FlexPen U-100 Insulin aspart) isosorbide mononitrate 30 mg 30 mg PO QAM #90 tabs 12/19/23 tablet,extended release 24 hr isosorbide mononitrate 60 mg 60 mg PO QAM #90 tabs 12/19/23 tablet,extended release 24 hr alendronate 70 mg tablet (Fosamax) 70 mg PO WK #12 tabs 12/25/23 insulin glargine 100 unit/mL (3 10 unit (0.1 mL) subcut HS 30 days 01/20/24 mL) subcutaneous pen (Lantus #300 mL Solostar U-100 Insulin) Results & Data (ED) Vital Signs Vital Signs - 24 hr 01/23/24 18:21 01/23/24 19:21 01/23/24 20:09 Temperature 36.5 C Temperature Source Temporal Artery Scan Pulse Rate 78 65 67 Respiratory Rate 20 16 Respiratory Effort / Characteristics Non-Labored Respiratory Depth Normal Blood Pressure 145/65 H Blood Pressure Mean 91 Pulse Oximetry 96 94 Oxygen Delivery Method Room Air Room Air Sepsis Recent Fever Within 48 Hours No Sepsis New/Unexplained Change in Mental Status No Sepsis Action Taken by Nursing No Action Required Laboratory Data 01/23/24 18:49 01/23/24 18:49 Lab Results 01/23/24 01/23/24 Range/Units 18:49 19:19 WBC 7.90 (4.8-10.8) K/ul RBC 2.92 L (4.20-5.40) M/uL Hgb 9.3 L (12.0-16.0) g/dl Hct 29.5 L (37.0-47.0) % MCV 101.0 H (80.0-100.0) fL MCH 31.8 (25.0-34.0) pg MCHC 31.5 L (32.0-36.0) g/dL RDW Std Deviation 53.9 H (36.4-46.3) fL RDW Coeff of Kirsty 14.8 H (11.5-14.5) % Plt Count 250 (130-400) K/uL MPV 10.0 (9.4-12.4) fL Immature Gran % (Auto) 0.5 % Neut % (Auto) 81.0 % Lymph % (Auto) 10.6 % [place] % (Auto) 7.8 % Eos % (Auto) 0.0 % Baso % (Auto) 0.1 % Neut # (Auto) 6.39 (1.40-6.50) K/uL Lymph # (Auto) 0.84 L (1.20-3.40) K/uL [place] # (Auto) 0.62 H (0.11-0.59) K/uL Eos # (Auto) 0.00 (0.00-0.50) K/uL Baso # (Auto) 0.01 (0.00-0.20) K/uL Immature Gran # (Auto) 0.04 (0.01-0.20) K/uL PT 10.3 (9.0-12.0) Seconds INR 0.9 (0.9-1.1) Sodium 134 L (136-145) mmol/L Potassium 4.5 (3.5-5.1) mmol/L Chloride 98 (98-107) mmol/L Carbon Dioxide 25 (21-32) mmol/L Anion Gap 11 (3-11) BUN 55 H (6-23) mg/dl Creatinine 3.89 H (0.6-1.2) mg/dl Est Cr Clr Drug Dosing Not Reportable Est GFR ( Amer) 11.8 ml/min Est GFR (Non-Af Amer) 10.1 ml/min BUN/Creatinine Ratio 14.1 (10-20) Glucose 215 H (70-99(Fasting)) mg/dl Lactate 2.4 H* (0.4-2.0) mmol/L Calcium 10.9 H (8.6-10.3) mg/dl Magnesium 2.3 (1.7-2.4) mg/dl Total Bilirubin 0.8 (0.2-1.0) mg/dl AST 16 (13-39) U/L ALT 8 (7-52) U/L Alkaline Phosphatase 61 (34-104) U/L Troponin I High Sens 14.9 H (0-14) pg/ml B-Natriuretic Peptide 572 H (0-100) pg/ml Total Protein 6.9 (6.0-8.3) gm/dl Albumin 3.6 (3.4-5.0) gm/dl Globulin 3.3 (2.5-4.0) gm/dl Albumin/Globulin Ratio 1.1 (0.9-2) Procalcitonin 0.06 (0-0.5) ng/ml Administered Medications Sodium Chloride (Nss) 1,000 mls @ 125 mls/hr IV .Q8H TRISH Stop: 02/22/24 19:14 Last Admin: 01/23/24 19:59 Dose: 125 mls/hr Documented By: [facility] Discontinued Medications Sodium Chloride (Nss) 500 mls @ 999 mls/hr IV .Q31M ONE Stop: 01/23/24 18:55 Last Admin: 01/23/24 18:42 Dose: 999 mls/hr Documented By: ASW Imaging Data Radiologist's Impression: Abdomen/Pelvis CT 01/23/24 19:04 Exam(s): CT ABDOMEN + PELVIS Without Contrast EXAM: CT Abdomen and Pelvis Without Intravenous Contrast CLINICAL HISTORY: Reason for exam: cooper, DEHYDRATION. TECHNIQUE: Axial computed tomography images of the abdomen and pelvis without intravenous contrast. CTDI is 27.22 mGy and DLP is 1281.19 mGy-cm. Automated exposure control was utilized for the study. A dose lowering technique was utilized adhering to the principles of ALARA. COMPARISON: No relevant prior studies available. FINDINGS: Lung bases: Unremarkable. No mass. No consolidation. Pleural space: Bilateral pleural effusions. Heart: Cardiomegaly. ABDOMEN: Liver: Unremarkable. Gallbladder and bile ducts: Unremarkable. No calcified stones. No ductal dilation. Pancreas: Unremarkable. No ductal dilation. Spleen: Unremarkable. No splenomegaly. Adrenals: Unremarkable. No mass. Kidneys and ureters: Diffuse bilateral renal atrophy. 2.5 cm left renal cyst. 2.6 cm right renal cyst. No obstructing stones. No hydronephrosis. Stomach and bowel: There is a right paracentral midline anterior abdominal wall hernia containing a loop of unobstructed:. Postoperative changes of the right hemicolon. No mucosal thickening. PELVIS: Appendix: No findings to suggest acute appendicitis. Bladder: Unremarkable. No stones. Reproductive: Unremarkable as visualized. ABDOMEN and PELVIS: Intraperitoneal space: Unremarkable. No free air. No significant fluid collection. Bones/joints: Prominent partially calcified uterus bone windows demonstrate multilevel degenerative disease of the lumbar spine. No acute fracture. No dislocation. Soft tissues: See above. Vasculature: Diffuse vascular calcifications. No abdominal aortic aneurysm. Lymph nodes: Unremarkable. No enlarged lymph nodes. IMPRESSION: Bilateral pleural effusions. Other chronic changes as described above Electronically signed by: Jason Cheatham MD 01/23/24 20:18 PM Discharge Plan Visit Data Chief Complaint: Abnormal Labs/Diagnostic Testing Stated Complaint: FLUIDS NEEDED, ABN BLOODWORK ED Provider: Caesar Bond Discharge Problem: COOPER (acute kidney injury) Patient Disposition: Admitted As Inpatient Discharge Instructions Interventions: ED Discharge Assessment Last Done: 01/23/24 21:40 Forms Stand Alone Forms: My [facility] Ins[facility]@ Project Prescriptions Prescriptions: No Action Procrit 2,000 unit/mL solution 2,000 unit subcut .[id number] bumetanide 0.5 mg tablet 0.5 mg PO BID Qty: 120 3RF atorvastatin 40 mg tablet 40 mg PO HS Qty: 90 3RF cilostazol 100 mg tablet 100 mg PO BID Qty: 180 3RF Rx Instructions: TAKE 1 TABLET TWICE A DAY calcitriol [Rocaltrol] 0.25 mcg capsule 0.25 mcg PO DAILY Qty: 90 3RF insulin aspart U-100 [Novolog FlexPen U-100 Insulin] 100 unit/mL (3 mL) insulin pen See Rx Instructions SQ TID Qty: 60 3RF Rx Instructions: use per sliding scale up to 60 units daily SQ isosorbide mononitrate 60 mg tablet extended release 24 hr 60 mg PO QAM Qty: 90 3RF Rx Instructions: TOTAL DOSE 90 MG--TAKES WITH 30 MG TAB. isosorbide mononitrate 30 mg tablet extended release 24 hr 30 mg PO QAM Qty: 90 3RF Rx Instructions: TOTAL DOSE 90 MG--TAKES WITH 60 MG TAB. alendronate [Fosamax] 70 mg tablet 70 mg PO WK Qty: 12 3RF Rx Instructions: SUNDAYS Eliquis 2.5 mg tablet 2.5 mg PO BID Qty: 180 3RF (DME) pen needle, diabetic [BD Ultra-Fine Short Pen Needle] 31 gauge x 5/16" needle See Dose Instructions .ROUTE .MEDSUPPLY Qty: 30 Rx Instructions: use 1 needle 4 x daily metoprolol succinate 200 mg tablet extended release 24 hr 200 mg PO BID Qty: 180 3RF omega 0-dkh-cph-fish oil [Fish Oil] 1,000 mg (120 mg-180 mg) Capsule 1 cap PO QPM cyanocobalamin (vitamin B-12) 1,000 mcg Capsule 1,000 mcg PO QAM magnesium oxide 400 mg Capsule 400 mg PO BID diclofenac sodium [Voltaren Arthritis Pain] 1 % gel 2 g topical QID PRN (Reason: arthritic pain ) Qty: 100 3RF Rx Instructions: apply to single elbow, wrist or hand; for hand includes palm/fingers/back of hand hydralazine 100 mg tablet 100 mg PO TID insulin glargine [Lantus Solostar U-100 Insulin] 100 unit/mL (3 mL) insulin pen 10 unit subcut HS 30 Days Qty: 300 0RF Referrals Referrals: Isaura Rashid CRNP [Primary Care Provider] -
[2024-01-23] MEDS ORDERED: GLUCOSE 10 TAB/TUBE PO PRN (22:25)
[2024-01-23] MEDS ORDERED: ACETAMINOPHEN 325 MG TAB PO PRN (22:25)
[2024-01-23] MEDS ORDERED: CARBOHYDRATES FOR HYPOGLYCEMIA PO PRN (22:25)
[2024-01-23] MEDS ORDERED: GLUCOSE 40% GEL 15 GM TUBE PO PRN (22:25)
[2024-01-23] MEDS ORDERED: GLUCAGON FOR INJ 1 MG VIAL SQ PRN (22:25)
[2024-01-23] MEDS ORDERED: DEXTROSE 50% 50 ML SYRINGE IV PRN (22:25)
[2024-01-23] MEDS: SODIUM CHLORIDE 0.9% 1,000 ML IV STA (23:01)
[2024-01-23 23:19] LABS: Appearance Urine Clear (Clear); Bacteria Urine Automated None Seen (None Seen); Bilirubin Urine Negative (Negative); Blood Urine Negative (Negative); Cast Urine Automated >20 /lpf (0-2); Color Urine Yellow; Glucose Urine UA Negative (Negative); Ketones Urine Negative (Negative); Leukocyte Esterase Urine Trace (Negative); Nitrite Urine Negative (Negative); Protein Urine Trace (Negative); RBC Urine Automated 0-2 /hpf (0-2); Specific Gravity Urine 1.014 (1.000-1.030); Urobilinogen Urine Negative (Negative); WBC Urine Automated 0-5 /hpf (0-5); pH Urine 5.5 (4.5-7.5)
[2024-01-23] MEDS: ATORVASTATIN 40 MG TAB PO SCH (23:24)
[2024-01-23] MEDS: APIXABAN 2.5 MG TAB PO SCH (23:25)
[2024-01-23] MEDS: cilostazoL 100 MG TAB PO SCH (23:32)
[2024-01-23] MEDS: MAGNESIUM OXIDE 400 MG TAB PO SCH (23:33)
[2024-01-23] MEDS: INSULIN ASPART PER UNIT CHARGE SC SCH (23:37)
[2024-01-23] MEDS: LANTUS PER UNIT CHARGE SC SCH (23:38)
[2024-01-23] MEDS: hydrALAZINE TAB 50 MG TAB PO SCH (23:41)
[2024-01-23] MEDS: METOPROLOL SUCC 50MG EXT REL TAB PO SCH (23:43)
--- NOTE | 2024-01-24 07:03 | XRay Report ---
XR chest 1V portable CLINICAL HISTORY: Weakness. COMPARISON STUDY: Chest CT January 12, 2022. Chest radiograph January 17, 2024. FINDINGS: There are median sternotomy wires and mediastinal surgical clips. There is no pneumothorax. Small bilateral pleural effusions are noted. There is cardiomegaly with pulmonary vascular congestio n similar to prior exam. No consolidation to suggest pneumonia. IMPRESSION: 1. Cardiomegaly with pulmonary vascular congestion. 2. Small bilateral pleural effusions. ACT 112: Negative or not required by law. Electronically signed by: Jose Wong M.D. 01/24/2024 7:02 AM
--- NOTE | 2024-01-24 09:03 | Nephrology Consultation ---
Date of Consultation January 24, 2024 Assessment & Plan (1) ELADIA (acute kidney injury): * ELADIA attributed to dehydration last hospitalization * Clinically patient appears volume contracted w/ dry mucous membranes and poor skin tenting * CXR however shows marked cardiomegaly and interstitial edema. Suspect patient may have CRS * Awaiting am labs. Patient may require CVC * Will order urinalysis w/ microscopy, FeNa * Abdominal CT this month was negative for obstruction * Will order echocardiogram to assess LVEF and compare to 06/30 study (2) CKD (chronic kidney disease), stage IV: * CKD stage G4/A3 (advanced impairment). Baseline creatinine 2.53.0 with EGFR 15 cc/minute. Outpatient evaluation has revealed a benign urine sediment. UPCR 0.5. Renal ultrasound showed bilateral cortical thinning but no obstruction. Renal impairment is due to DKD, microvascular disease and hyp ertensive nephrosclerosis. (3) (HFpEF) heart failure with preserved ejection fraction: * Follows w/ [facility] * 06/30 echocardiogram LVEF 60-65%, mild MR. Unable to assess RVSP * On Bumex 0.5 mg BID weight based protocol * Target weight 197 lbs (89 kg) (4) Atrial fibrillation: * On apixaban History of Present Illness Reason for Consultation: ELADIA/CKD Attending Physician: Isaac Schofield MD History of Present Illness Ms. Unger is an 83 year old white female who is seen at the request of the hospitalist service for evaluation of ELADIA/CKD. Information for the HPI is o btained from direct patient interview and review of the EMR. HPI summarized as follows: Ms. Garcia has stage G4/A3 CKD (advanced impairment). Baseline creatinine has been 2.53.0 with EGFR 15 cc/minute. Outpatient evaluation has revealed a benign urine sediment. UPCR 0.5. Renal ultrasound showed bilateral cortical thinning but no obstruction. Patient's renal impairment has been attributed to DKD, microvascular disease and hypertensive nephrosclerosis. Ms. Unger was last hospitalized 01/17/2024 - 01/20/2024 for evaluation of ELADIA and dehydration. Creatinine peaked at 3.6 but improved to 3.2 following IV hydration. Abdominal CT revealed several cysts within each kidney some of which were indeterminant. Follow-up is recommended to exclude a solid mass. No hydronephrosis was reported. Yesterday Ms. Garcia had laboratory studies performed at the request of Dr. Kebede. Creatinine was again noted to be 3.6. Dr. Kebede was off service and contacted me requesting that I have the patient return to the hospital for reevaluation. I did contact Ms. Garcia and her daughters by phone. We discussed her laboratory findings and she was readmitted last evening. This morning the patient tells me that she lost her IV access. They have been unable to provide her with IV fluid and have not been able to draw her blood work. IV team is working on obtaining a central venous access. Ms. Unger reports 2 days diarrhea prior to last hospitalization. Her diarrhea has resolved. She had poor oral intake but now reports that she can keep down fluids. She currently denies fever, abdominal pain, N&V, dyspnea, flank discomfort, dysuria or uremic symptoms. 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 breast CA s/p lumpectomy and radiation therapy, colon cancer diagnosed 06/27 s/p D&C and laparoscopic hemicolectomy 08/26/20 Allergies Allergy/AdvReac Type Severity Reaction Status Date / Time spironolactone AdvReac Severe Hyperkalemi Verified 10/25/23 09:36 a sulfamethoxazole AdvReac Severe SEVERE Verified 10/25/23 09:36 [From Bactrim] VOMITING trimethoprim [From Bactrim] AdvReac Severe SEVERE Verified 10/25/23 09:36 VOMITING JESSICA Inhibitors AdvReac Intermediate ARF Verified 10/25/23 09:36 diclofenac AdvReac Intermediate ankle Verified 10/25/23 09:36 swelling iron AdvReac Intermediate nausea/ Verified 10/25/23 09:36 VOMITING Home Medications Medication Instructions Recorded Confirmed Type cyanocobalamin (vitamin B-12) 1,000 mcg PO QAM 12/28/17 01/24/24 History 1,000 mcg capsule magnesium oxide 400 mg PO BID 12/28/17 01/24/24 History omega [id number]-fish oil 1,000 mg 1 cap PO QPM 12/28/17 01/24/24 History (120 mg-180 mg) capsule (Fish Oil) pen needle, diabetic 31 gauge x #30 ea 11/22/18 10/25/23 History 5/16" (BD Ultra-Fine Short Pen Needle) epoetin jase 2,000 unit/mL 0 unit subcut Q14D 12/02/20 01/24/24 History injection solution (Procrit) apixaban 2.5 mg tablet (Eliquis) 2.5 mg PO BID #180 tabs 01/29/23 01/24/24 Rx bumetanide 0.5 mg tablet 0.5 mg PO BID #120 tabs 05/15/23 01/24/24 Rx atorvastatin 40 mg tablet 40 mg PO HS #90 tabs 05/23/23 01/24/24 Rx cilostazol 100 mg tablet 100 mg PO BID #180 tabs 06/05/23 01/24/24 Rx diclofenac sodium 1 % topical gel 2 g topical QID PRN arthritic pain 06/12/23 01/24/24 Rx (Voltaren Arthritis Pain) #100 grams metoprolol succinate 200 mg 200 mg PO BID #180 tabs 06/13/23 01/24/24 Rx tablet,extended release 24 hr calcitriol 0.25 mcg capsule 0.25 mcg PO DAILY #90 caps 09/10/23 01/24/24 Rx (Rocaltrol) insulin aspart U-100 100 unit/mL See Rx Instructions subcut TID #60 10/30/23 01/24/24 Rx (3 mL) subcutaneous pen (Novolog mL FlexPen U-100 Insulin aspart) isosorbide mononitrate 30 mg 30 mg PO QAM #90 tabs 12/19/23 01/24/24 Rx tablet,extended release 24 hr isosorbide mononitrate 60 mg 60 mg PO QAM #90 tabs 12/19/23 01/24/24 Rx tablet,extended release 24 hr alendronate 70 mg tablet (Fosamax) 70 mg PO WK #12 tabs 12/25/23 01/24/24 Rx hydralazine 100 mg tablet 0 mg PO TID 01/17/24 01/24/24 History insulin glargine 100 unit/mL (3 See Rx Instructions .Route .COMPLEX 01/24/24 01/24/24 History mL) subcutaneous pen (Lantus Solostar U-100 Insulin) Patient History Medical History Chronic kidney disease Urinary retention Type 2 diabetes mellitus with neurologic complication, with long-term current use of insulin Hypertension CAD (coronary artery disease) s/p 3 vessel CABG 2006 New onset a-fib Small bowel obstruction 2020 > after colon surgery Ileus Encounter for pre-operative examination Anemia Mild- has been evaluated by heme/onc for recent dx colon cancer Lumbar spinal stenosis Peripheral vascular disease Hx of acute respiratory failure WITH GB SURG 04/21/09 [facility] POST OP RESPIRATORY FAILURE-HAD TO BE VENTILATED,EXTUBATED NEXT DAY-PER PT SLOW TO WAKE UP IN GENERAL Right breast partial mastectomy 08/29/18 under [facility] with LMA #4 x 3 attempts- atraumatic with good seal- no other issues noted Osteoarthritis Venous stasis dermatitis LLE Chronic kidney disease STAGE 3-FOLLOWS WITH DR LIND Last seen by nephro 07/20/20- kidney function stable at that time Hyperlipidemia Surgical History Hx of colonoscopy Hx of lymph node excision right axillary Status post dilation and curettage 08/26/20 Dr. Cathy Calderon- Hysteroscopy, Dilation and Curettage, Possible Polypectomy History of esophagogastroduodenoscopy (EGD) S/P epidural steroid injection History of partial mastectomy of right breast no chemo, just radiation Status post trigger finger release X2 History of total knee replacement LEFT 2018 History of adverse response to anesthesia SLOW TO WAKE. PT HAD RESP FAILURE S/P KYLAH IN 2008 History of Moh's micrographic surgery for skin cancer S/P tendon repair R ARM History of cholecystectomy History of dilatation and curettage History of bilateral tubal ligation History of cataract surgery BL History of cardiac cath 2006 NO STENTS-[facility] Family History Mother , age 38 heart disease due to rheumatic fever No problems noted. Father , age 73 heart disease No problems noted. Sister No problems noted. Sister No problems noted. Sister No problems noted. Sister No problems noted. Sister No problems noted. Daughter Myocardial infarction Breast cancer Family history of reaction to anesthesia SLOW TO WAKE UP/PONV Daughter Heart disease Other No family history of adverse response to anesthesia Denies family history of Ovarian cancer Prostate cancer Colorectal cancer Social History Smoking Status: Never smoker Second Hand Exposure: No; Do You Dip or Chew Tobacco: No; Hx Alcohol Use: No Hx Substance Use: No Preferred Language: Kosovan Communication Ability: Effective Visual Impairment: Limited Hearing Ability: Normal Foreign Diplomat Required: No Beliefs That Will Affect Care: None marital status: / Current Living Situation: Family Current Living Situation Comment: Lives with daughter current occupational status: retired How many Children do You have: 2 Feels Safe at Home: Yes Childhood Exposure to Second-Hand Smoke: No Diet: low salt and regular caffeine: No during the past year weight has: remained stable Dental Care, Regularly: No Physical Activity Frequency: 3-4 Times per Week Seatbelt Use: always Sunscreen Use: Yes Do you think of yourself as: straight/heterosexual Gender Identity: Female Assistive Devices: Cane, Denture - Upper, Denture - Lower, Hospital Bed and Walker Review of Systems Constitutional: no fever Eyes: no problem reported Ear, Nose, Mouth, Throat: no problem reported Respiratory: no problem reported Cardiovascular: no chest pain Gastrointestinal: no abdominal pain, no nausea, no vomiting and no diarrhea/loose stools Genitourinary: no dysuria and no urinary hesitancy Integumentary: no rash Physical Exam Constitutional: + frail appearing; not in distress Eyes: PERRL, conjunctivae normal, anicteric sclerae ENMT: Mouth: + dry oral mucous membranes Neck: trachea midline, no thyromegaly Respiratory: normal respiratory effort, lungs clear to auscultation Cardiovascular: Rate/Rhythm: regular rate and regular rhythm Heart Sounds: no cardiac rub Gastrointestinal (Abdomen): normal bowel sounds, soft, nontender, no hepatosplenomegaly Musculoskeletal: Extremities: no cyanosis Skin: no rashes, warm and dry + turgor decreased Neurologic: Speech / Cognition: normal speech and normal cognition Psychiatric: Affect: euthymic affect Results & Data Vital Signs (Past 12 Hours) Vital Signs Temp Pulse Pulse Resp BP Pulse Ox O2 Del Method 01/24/24 08:21 36.7 C 59 L 18 174/63 H 96 Room Air 01/24/24 07:00 58 L 01/24/24 02:51 36.5 C 58 L 18 146/55 H 100 Room Air 01/24/24 00:37 79 164/60 H 01/23/24 22:55 36.6 C 69 18 183/50 H 93 Room Air 01/23/24 22:42 71 01/23/24 22:15 Room Air Laboratory Results Laboratory Results WBC 5.80 K/ul (4.8-10.8) 01/24/24 10:08 RBC 2.51 M/uL (4.20-5.40) L 01/24/24 10:08 Hgb 8.0 g/dl (12.0-16.0) L 01/24/24 10:08 Hct 25.3 % (37.0-47.0) L 01/24/24 10:08 MCV 100.8 fL (80.0-100.0) H 01/24/24 10:08 MCH 31.9 pg (25.0-34.0) 01/24/24 10:08 MCHC 31.6 g/dL (32.0-36.0) L 01/24/24 10:08 RDW Std Deviation 54.1 fL (36.4-46.3) H 01/24/24 10:08 RDW Coeff of Kirsty 14.8 % (11.5-14.5) H 01/24/24 10:08 Plt Count 207 K/uL (130-400) 01/24/24 10:08 MPV 9.7 fL (9.4-12.4) 01/24/24 10:08 Immature Gran % (Auto) 0.7 % 01/24/24 10:08 Neut % (Auto) 75.1 % 01/24/24 10:08 Lymph % (Auto) 13.3 % 01/24/24 10:08 [place] % (Auto) 9.3 % 01/24/24 10:08 Eos % (Auto) 1.4 % 01/24/24 10:08 Baso % (Auto) 0.2 % 01/24/24 10:08 Neut # (Auto) 4.36 K/uL (1.40-6.50) 01/24/24 10:08 Lymph # (Auto) 0.77 K/uL (1.20-3.40) L 01/24/24 10:08 [place] # (Auto) 0.54 K/uL (0.11-0.59) 01/24/24 10:08 Eos # (Auto) 0.08 K/uL (0.00-0.50) 01/24/24 10:08 Baso # (Auto) 0.01 K/uL (0.00-0.20) 01/24/24 10:08 Immature Gran # (Auto) 0.04 K/uL (0.01-0.20) 01/24/24 10:08 PT 10.3 Seconds (9.0-12.0) 01/23/24 18:49 INR 0.9 (0.9-1.1) 01/23/24 18:49 Sodium 134 mmol/L (136-145) L 01/23/24 18:49 Potassium 4.5 mmol/L (3.5-5.1) 01/23/24 18:49 Chloride 98 mmol/L (98-107) 01/23/24 18:49 Carbon Dioxide 25 mmol/L (21-32) 01/23/24 18:49 Anion Gap 11 (3-11) 01/23/24 18:49 BUN 55 mg/dl (6-23) H 01/23/24 18:49 Creatinine 3.89 mg/dl (0.6-1.2) H 01/23/24 18:49 Est Cr Clr Drug Dosing Not Reportable 01/23/24 18:49 Est GFR ( Amer) 11.8 ml/min 01/23/24 18:49 Est GFR (Non-Af Amer) 10.1 ml/min 01/23/24 18:49 BUN/Creatinine Ratio 14.1 (10-20) 01/23/24 18:49 Glucose 215 mg/dl (70-99(Fasting)) H 01/23/24 18:49 POC Glucose 154 mg/dl (70-99) H 01/24/24 08:12 Lactate 1.6 mmol/L (0.4-2.0) 01/23/24 21:26 Calcium 10.9 mg/dl (8.6-10.3) H 01/23/24 18:49 Magnesium 2.3 mg/dl (1.7-2.4) 01/23/24 18:49 Total Bilirubin 0.8 mg/dl (0.2-1.0) 01/23/24 18:49 AST 16 U/L (13-39) 01/23/24 18:49 ALT 8 U/L (7-52) 01/23/24 18:49 Alkaline Phosphatase 61 U/L (34-104) 01/23/24 18:49 Troponin I High Sens 14.9 pg/ml (0-14) H 01/23/24 18:49 B-Natriuretic Peptide 572 pg/ml (0-100) H 01/23/24 18:49 Total Protein 6.9 gm/dl (6.0-8.3) 01/23/24 18:49 Albumin 3.6 gm/dl (3.4-5.0) 01/23/24 18:49 Globulin 3.3 gm/dl (2.5-4.0) 01/23/24 18:49 Albumin/Globulin Ratio 1.1 (0.9-2) 01/23/24 18:49 Procalcitonin 0.06 ng/ml (0-0.5) 01/23/24 18:49 Urine Color Yellow 01/23/24 Unknown Urine Appearance Clear (Clear) 01/23/24 Unknown Urine pH 5.5 (4.5-7.5) 01/23/24 Unknown Ur Specific [place] 1.014 (1.000-1.030) 01/23/24 Unknown Urine Protein Trace (Negative) H 01/23/24 Unknown Urine Glucose (UA) Negative (Negative) 01/23/24 Unknown Urine Ketones Negative (Negative) 01/23/24 Unknown Urine Blood Negative (Negative) 01/23/24 Unknown Urine Nitrite Negative (Negative) 01/23/24 Unknown Urine Bilirubin Negative (Negative) 01/23/24 Unknown Urine Urobilinogen Negative (Negative) 01/23/24 Unknown Ur Leukocyte Esterase Trace (Negative) H 01/23/24 Unknown Urine WBC (Auto) 0-5 /hpf (0-5) 01/23/24 Unknown Urine RBC (Auto) 0-2 /hpf (0-2) 01/23/24 Unknown U Hyaline Cast (Auto) >20 /lpf (0-2) H 01/23/24 Unknown U Epithel Cells (Auto) 6-10 /hpf (0-2) H 01/23/24 Unknown Urine Bacteria (Auto) None Seen (None Seen) 01/23/24 Unknown Impressions Chest X-Ray 01/23/24 18:25 XR chest 1V portable CLINICAL HISTORY: Weakness. COMPARISON STUDY: Chest CT January 12, 2022. Chest radiograph January 17, 2024. FINDINGS: There are median sternotomy wires and mediastinal surgical clips. There is no pneumothorax. Small bilateral pleural effusions are noted. There is cardiomegaly with pulmonary vascular congestion similar to prior exam. No consolidation to suggest pneumonia. IMPRESSION: 1. Cardiomegaly with pulmonary vascular congestion. 2. Small bilateral pleural effusions. ACT 112: Negative or not required by law. Electronically signed by: Jose Wong M.D. 01/24/2024 7:02 AM Abdomen/Pelvis CT 01/23/24 19:04 Exam(s): CT ABDOMEN + PELVIS Without Contrast EXAM: CT Abdomen and Pelvis Without Intravenous Contrast CLINICAL HISTORY: Reason for exam: eladia, DEHYDRATION. TECHNIQUE: Axial computed tomography images of the abdomen and pelvis without intravenous contrast. CTDI is 27.22 mGy and DLP is 1281.19 mGy-cm. Automated exposure control was utilized for the study. A dose lowering technique was utilized adhering to the principles of ALARA. COMPARISON: No relevant prior studies available. FINDINGS: Lung bases: Unremarkable. No mass. No consolidation. Pleural space: Bilateral pleural effusions. Heart: Cardiomegaly. ABDOMEN: Liver: Unremarkable. Gallbladder and bile ducts: Unremarkable. No calcified stones. No ductal dilation. Pancreas: Unremarkable. No ductal dilation. Spleen: Unremarkable. No splenomegaly. Adrenals: Unremarkable. No mass. Kidneys and ureters: Diffuse bilateral renal atrophy. 2.5 cm left renal cyst. 2.6 cm right renal cyst. No obstructing stones. No hydronephrosis. Stomach and bowel: There is a right paracentral midline anterior abdominal wall hernia containing a loop of unobstructed:. Postoperative changes of the right hemicolon. No mucosal thickening. PELVIS: Appendix: No findings to suggest acute appendicitis. Bladder: Unremarkable. No stones. Reproductive: Unremarkable as visualized. ABDOMEN and PELVIS: Intraperitoneal space: Unremarkable. No free air. No significant fluid collection. Bones/joints: Prominent partially calcified uterus bone windows demonstrate multilevel degenerative disease of the lumbar spine. No acute fracture. No dislocation. Soft tissues: See above. Vasculature: Diffuse vascular calcifications. No abdominal aortic aneurysm. Lymph nodes: Unremarkable. No enlarged lymph nodes. IMPRESSION: Bilateral pleural effusions. Other chronic changes as described above Electronically signed by: Jason Cheatham MD 01/23/24 20:18 PM PG Care Time/CCT Total # of Minutes Spent Total Time Spent with Patient: Total time spent is greater than 50% in coordination of care (as documented) at patient's floor/unit and/or counseling patient: Coding Level of Care Code 78617 IN/OBS CONSULT LVL 5,80M Diagnoses ELADIA (acute kidney injury) N17.9 CKD (chronic kidney disease), stage IV N18.4 (HFpEF) heart failure with preserved ejection fraction I50.30 Atrial fibrillation I48.91
[2024-01-24] MEDS: CALCITRIOL 0.25 MCG CAPSULE PO SCH (09:16)
[2024-01-24] MEDS: CYANOCOBALAMIN (B-12) 500 MCG TABLET PO SCH (09:16)
[2024-01-24] MEDS: ISOSORBIDE MONO EXTENDED REL 60 MG TABCR PO SCH (09:17)
[2024-01-24] MEDS: ISOSORBIDE MONO EXTENDED REL 30 MG TABCR PO SCH (09:17)
[2024-01-24 10:40] LABS: Basophils # (auto) 0.01 K/uL (0.00-0.20); Basophils % (auto) 0.2 %; Eosinophils # (auto) 0.08 K/uL (0.00-0.50); Eosinophils % (auto) 1.4 %; Hematocrit (blood only) 25.3 % (37.0-47.0); Immature Granulocytes # (auto) 0.04 K/uL (0.01-0.20); Immature Granulocytes % (auto) 0.7 %; Lymphocytes # (auto) 0.77 K/uL (1.20-3.40); Lymphocytes % (auto) 13.3 %; Mean Corpuscular Hemoglobin 31.9 pg (25.0-34.0); Mean Corpuscular Hgb Conc 31.6 g/dL (32.0-36.0); Mean Corpuscular Volume 100.8 fL (80.0-100.0); Mean Platelet Volume 9.7 fL (9.4-12.4); Monocytes # (auto) 0.54 K/uL (0.11-0.59); Monocytes % (auto) 9.3 %; Neutrophils # (auto) 4.36 K/uL (1.40-6.50); Neutrophils % (auto) 75.1 %; Platelet Count 207 K/uL (130-400); RDW Coefficient of Variation 14.8 % (11.5-14.5); RDW Standard Deviation 54.1 fL (36.4-46.3); Red Blood Count 2.51 M/uL (4.20-5.40)
--- NOTE | 2024-01-24 10:45 | Hospitalist Progress Note ---
Date of Service January 24, 2024 Assessment & Plan (1) Acute kidney injury superimposed on CKD: (2) CKD (chronic kidney disease), stage IV: (3) (HFpEF) heart failure with preserved ejection fraction: (4) Brain TIA: (5) Paroxysmal atrial fibrillation: (6) CAD (coronary artery disease): Plan 83-year-old female with past medical history of coronary artery disease status post CABG in 2006, chronic diastolic congestive heart failure with preserved ejection fraction, history of TIA, DVT, paroxysmal atrial fibrillation on anticoagulation with apixaban, history of colon cancer in 2020 status post hemicolectomy, history of breast cancer and 2018 status post partial mastectomy and radiation and has finished 4+ years of tamoxifen with recently admitted to [facility] from 01/17/2024 to 01/20/2024 for ELADIA superimposed on CKD with repeat creatinine outpatient being elevated at 3.89 and she was referred to the ED. #ELADIA superimposed on chronic kidney disease stage IV #Hypercalcemia Baseline creatinine is between 2.5-3.0 CT abdomen pelvis shows no hydronephrosis with bilateral pleural effusions Patient received IV fluid hydration overnight but has lost IV access and is currently not on IV fluids Bumex has been held Nephrology suspecting patient may have cardiorenal syndrome Repeat labs from this morning is still pending Nephrology has been consulted: Await nephrology consult and recommendations post labs being posted As per my discussion with engine hostler Dr. Clement Butler: Okay for patient to get PICC line in nondominant arm if unable to get peripheral access Patient currently denies any nausea, vomiting, diarrhea and is tolerating oral fluids and diet without any issues Avoid nephrotoxic agents including NSAIDs Monitor renal function electrolytes #Coronary disease #Essential hypertension #Chronic diastolic congestive heart failure with preserved ejection fraction of 60% with grade 2 diastolic dysfunction #Paroxysmal atrial fibrillation on anticoagulation #History of TIA #Peripheral vascular disease Continue apixaban 2.5 mg p.o. twice daily for anticoagulation Continue Imdur 90 mg p.o. every morning, Toprol-XL 200 mg p.o. twice daily, hydralazine 100 mg p.o. twice daily Continue atorvastatin 40 mg p.o. nightly Continue Pletal 100 mg p.o. twice daily Nephrology has ordered repeat echo during this hospital stay Monitor vital signs #Anemia of chronic kidney disease H&H is stable No active bleeding Monitor intermittently weakness #Type 2 diabetes mellitus A1c is 5.5 from 01/18/2024 Continue Lantus 10 units subcutaneous nightly Accu-Cheks before every meal and nightly with sliding scale insulin coverage Monitor glycemic control CODE STATUS: Full code DVT prophylaxis: Patient on apixaban Discharge planning based on renal improvement and nephrology recommendations. PT/OT evaluation Care plan discussed with patient, nursing staff Attempted to call daughter Elena ([phone]) to update: No response, no voicemail Admission and Anticipated Discharge Date Admission Date: January 23, 2024 Subjective Patient seen and examined H&P reviewed Patient denies any headache, dizziness, lightheadedness, fever, chills, chest pain, shortness of breath, nausea, vomiting, diarrhea, abdominal pain, urinary symptoms Patient states she ate a full breakfast which was confirmed with the nurse and denies any loss of appetite Patient states she had issues with diarrhea and nausea 2 weeks ago which have all resolved She is currently residing with her daughter temporarily since her recent discharge Patient states she does not use a cane or walker and is independent of ADLs Social history: Patient denies tobacco use or alcohol use Review of Systems Review of Systems: As per HPI Physical Exam Physical Exam: General: No acute distress, speaking in full sentences Psych: Awake and alert HEENT: Anicteric sclera, moist oral mucosa CVS: Regular rate and rhythm Lungs: Bilateral air entry with mild coarse crackles at bases, no wheezing noted Abdomen: Soft, nontender, no rebound, no guarding Ext: No lower extremity edema, no calf tenderness Neuro: No focal motor deficits noted Results & Data Results & Data Vital Signs (Past 12 Hours) Vital Signs Temp Pulse Pulse Resp BP Pulse Ox O2 Del Method 01/24/24 09:15 Room Air 01/24/24 08:21 36.7 C 59 L 18 174/63 H 96 Room Air 01/24/24 07:00 58 L 01/24/24 02:51 36.5 C 58 L 18 146/55 H 100 Room Air 01/24/24 00:37 79 164/60 H 01/23/24 22:55 36.6 C 69 18 183/50 H 93 Room Air Laboratory Results Laboratory Results - last 24 hr 01/23/24 01/23/24 01/23/24 18:49 19:19 21:26 WBC 7.90 RBC 2.92 L Hgb 9.3 L Hct 29.5 L MCV 101.0 H MCH 31.8 MCHC 31.5 L RDW Std Deviation 53.9 H RDW Coeff of Ikrsty 14.8 H Plt Count 250 MPV 10.0 Immature Gran % (Auto) 0.5 Neut % (Auto) 81.0 Lymph % (Auto) 10.6 [place] % (Auto) 7.8 Eos % (Auto) 0.0 Baso % (Auto) 0.1 Neut # (Auto) 6.39 Lymph # (Auto) 0.84 L [place] # (Auto) 0.62 H Eos # (Auto) 0.00 Baso # (Auto) 0.01 Immature Gran # (Auto) 0.04 PT 10.3 INR 0.9 Sodium 134 L Potassium 4.5 Chloride 98 Carbon Dioxide 25 Anion Gap 11 BUN 55 H Creatinine 3.89 H Est Cr Clr Drug Dosing Not Reportable Est GFR ( Amer) 11.8 Est GFR (Non-Af Amer) 10.1 BUN/Creatinine Ratio 14.1 Glucose 215 H POC Glucose Lactate 2.4 H* 1.6 Calcium 10.9 H Phosphorus Magnesium 2.3 Total Bilirubin 0.8 AST 16 ALT 8 Alkaline Phosphatase 61 Troponin I High Sens 14.9 H B-Natriuretic Peptide 572 H Total Protein 6.9 Albumin 3.6 Globulin 3.3 Albumin/Globulin Ratio 1.1 Procalcitonin 0.06 Urine Color Urine Appearance Urine pH Ur Specific [place] Urine Protein Urine Glucose (UA) Urine Ketones Urine Blood Urine Nitrite Urine Bilirubin Urine Urobilinogen Ur Leukocyte Esterase Urine WBC (Auto) Urine RBC (Auto) U Hyaline Cast (Auto) U Epithel Cells (Auto) Urine Bacteria (Auto) 01/23/24 01/23/24 01/24/24 22:39 Unknown 08:12 WBC RBC Hgb Hct MCV MCH MCHC RDW Std Deviation RDW Coeff of Kirsty Plt Count MPV Immature Gran % (Auto) Neut % (Auto) Lymph % (Auto) [place] % (Auto) Eos % (Auto) Baso % (Auto) Neut # (Auto) Lymph # (Auto) [place] # (Auto) Eos # (Auto) Baso # (Auto) Immature Gran # (Auto) PT INR Sodium Potassium Chloride Carbon Dioxide Anion Gap BUN Creatinine Est Cr Clr Drug Dosing Est GFR ( Amer) Est GFR (Non-Af Amer) BUN/Creatinine Ratio Glucose POC Glucose 189 H 154 H Lactate Calcium Phosphorus Magnesium Total Bilirubin AST ALT Alkaline Phosphatase Troponin I High Sens B-Natriuretic Peptide Total Protein Albumin Globulin Albumin/Globulin Ratio Procalcitonin Urine Color Yellow Urine Appearance Clear Urine pH 5.5 Ur Specific [place] 1.014 Urine Protein Trace H Urine Glucose (UA) Negative Urine Ketones Negative Urine Blood Negative Urine Nitrite Negative Urine Bilirubin Negative Urine Urobilinogen Negative Ur Leukocyte Esterase Trace H Urine WBC (Auto) 0-5 Urine RBC (Auto) 0-2 U Hyaline Cast (Auto) >20 H U Epithel Cells (Auto) 6-10 H Urine Bacteria (Auto) None Seen 01/24/24 10:08 WBC 5.80 RBC 2.51 L Hgb 8.0 L Hct 25.3 L MCV 100.8 H MCH 31.9 MCHC 31.6 L RDW Std Deviation 54.1 H RDW Coeff of Kirsty 14.8 H Plt Count 207 MPV 9.7 Immature Gran % (Auto) 0.7 Neut % (Auto) 75.1 Lymph % (Auto) 13.3 [place] % (Auto) 9.3 Eos % (Auto) 1.4 Baso % (Auto) 0.2 Neut # (Auto) 4.36 Lymph # (Auto) 0.77 L [place] # (Auto) 0.54 Eos # (Auto) 0.08 Baso # (Auto) 0.01 Immature Gran # (Auto) 0.04 PT INR Sodium Pending Potassium Pending Chloride Pending Carbon Dioxide Pending Anion Gap Pending BUN Pending Creatinine Pending Est Cr Clr Drug Dosing Pending Est GFR ( Amer) Pending Est GFR (Non-Af Amer) Pending BUN/Creatinine Ratio Pending Glucose Pending POC Glucose Lactate Calcium Pending Phosphorus Pending Magnesium Pending Total Bilirubin AST ALT Alkaline Phosphatase Troponin I High Sens B-Natriuretic Peptide Total Protein Albumin Pending Globulin Albumin/Globulin Ratio Procalcitonin Urine Color Urine Appearance Urine pH Ur Specific [place] Urine Protein Urine Glucose (UA) Urine Ketones Urine Blood Urine Nitrite Urine Bilirubin Urine Urobilinogen Ur Leukocyte Esterase Urine WBC (Auto) Urine RBC (Auto) U Hyaline Cast (Auto) U Epithel Cells (Auto) Urine Bacteria (Auto) Diagnostic Findings Chest X-Ray 01/23/24 18:25 XR chest 1V portable CLINICAL HISTORY: Weakness. COMPARISON STUDY: Chest CT January 12, 2022. Chest radiograph January 17, 2024. FINDINGS: There are median sternotomy wires and mediastinal surgical clips. There is no pneumothorax. Small bilateral pleural effusions are noted. There is cardiomegaly with pulmonary vascular congestion similar to prior exam. No consolidation to suggest pneumonia. IMPRESSION: 1. Cardiomegaly with pulmonary vascular congestion. 2. Small bilateral pleural effusions. ACT 112: Negative or not required by law. Electronically signed by: Jose Wong M.D. 01/24/2024 7:02 AM Abdomen/Pelvis CT 01/23/24 19:04 Exam(s): CT ABDOMEN + PELVIS Without Contrast EXAM: CT Abdomen and Pelvis Without Intravenous Contrast CLINICAL HISTORY: Reason for exam: eladia, DEHYDRATION. TECHNIQUE: Axial computed tomography images of the abdomen and pelvis without intravenous contrast. CTDI is 27.22 mGy and DLP is 1281.19 mGy-cm. Automated exposure control was utilized for the study. A dose lowering technique was utilized adhering to the principles of ALARA. COMPARISON: No relevant prior studies available. FINDINGS: Lung bases: Unremarkable. No mass. No consolidation. Pleural space: Bilateral pleural effusions. Heart: Cardiomegaly. ABDOMEN: Liver: Unremarkable. Gallbladder and bile ducts: Unremarkable. No calcified stones. No ductal dilation. Pancreas: Unremarkable. No ductal dilation. Spleen: Unremarkable. No splenomegaly. Adrenals: Unremarkable. No mass. Kidneys and ureters: Diffuse bilateral renal atrophy. 2.5 cm left renal cyst. 2.6 cm right renal cyst. No obstructing stones. No hydronephrosis. Stomach and bowel: There is a right paracentral midline anterior abdominal wall hernia containing a loop of unobstructed:. Postoperative changes of the right hemicolon. No mucosal thickening. PELVIS: Appendix: No findings to suggest acute appendicitis. Bladder: Unremarkable. No stones. Reproductive: Unremarkable as visualized. ABDOMEN and PELVIS: Intraperitoneal space: Unremarkable. No free air. No significant fluid collection. Bones/joints: Prominent partially calcified uterus bone windows demonstrate multilevel degenerative disease of the lumbar spine. No acute fracture. No dislocation. Soft tissues: See above. Vasculature: Diffuse vascular calcifications. No abdominal aortic aneurysm. Lymph nodes: Unremarkable. No enlarged lymph nodes. IMPRESSION: Bilateral pleural effusions. Other chronic changes as described above Electronically signed by: Jason Cheatham MD 01/23/24 20:18 PM PG Care Time/CCT Total # of Minutes Spent Total Time Spent with Patient: Total time spent is greater than 50% in coordination of care (as documented) at patient's floor/unit and/or counseling patient: Coding Level of Care Code 37706 SUB INP/OBS CARE 3/50MIN Diagnoses Acute kidney injury superimposed on CKD N17.9; N18.9 CKD (chronic kidney disease), stage IV N18.4 (HFpEF) heart failure with preserved ejection fraction I50.30 Brain TIA G45.9 Paroxysmal atrial fibrillation I48.0 Coronary artery disease involving [place] coronary artery of [place] heart without angina pectoris I25.10 Associated angina: without angina Coronary Disease-Associated Artery/Lesion type: [place] artery Habematolel vs. transplanted heart: [place] heart (6) CAD (coronary artery disease) Associated angina: without angina Coronary Disease-Associated Artery/Lesion type: [place] artery Habemat[place]l vs. transplanted heart: [place] heart Qualified Code(s): I25.10 - Atherosclerotic heart disease of [place] coronary artery without angina pectoris
[2024-01-24 10:56] LABS: Albumin Level 3.1 gm/dl (3.4-5.0); BUN Creatinine Ratio 15.7 (10-20); Calcium 10.1 mg/dl (8.6-10.3); Creatinine Clr Calc Pharmacy 12.7 ml/min; Est GFR (African American) 12.5 ml/min; Est GFR (Non-African American) 10.8 ml/min; Magnesium 2.1 mg/dl (1.7-2.4); Phosphorus 3.3 mg/dl (2.5-4.9); Potassium 4.1 mmol/L (3.5-5.1)
--- NOTE | 2024-01-24 12:23 | Electrocardiogram Report ---
Test Reason : Blood Pressure : */* mmHG Vent. Rate : 57 BPM Atrial Rate : * BPM P-R Int : * ms QRS Dur : 120 ms QT Int : 392 ms P-R-T Axes : * -34 77 degrees QTcB Int : 381 ms Atrial fibrillation with slow ventricular response Incomplete left bundle block Poor R wave progression, consider anterior MN vs. lead placement vs. LVH Abnormal ECG When compared with ECG of 17-Jan-2024 15:10, HR has decreased by 27 bpm Otherwise no significant change Confirmed by Andi Botello ([id number]) on 01/24/2024 12:22:47 PM Referred By: REFERRED SELF Confirmed By: Andi Botello
[2024-01-24 14:09] LABS: Appearance Urine Clear (Clear); Bacteria Urine Automated None Seen (None Seen); Bilirubin Urine Negative (Negative); Blood Urine Negative (Negative); Color Urine Yellow; Glucose Urine UA Negative (Negative); Ketones Urine Negative (Negative); Leukocyte Esterase Urine Trace (Negative); Nitrite Urine Negative (Negative); Protein Urine Trace (Negative); RBC Urine Automated 0-2 /hpf (0-2); Specific Gravity Urine 1.013 (1.000-1.030); Urobilinogen Urine Negative (Negative); WBC Urine Automated 0-5 /hpf (0-5)
--- NOTE | 2024-01-24 15:07 | XRay Report ---
XR chest 1V portable HISTORY: 83 years-old Female left arm picc placement status post placement of a left-sided PICC COMPARISON: 01/23/2024 TECHNIQUE: AP view of the chest FINDINGS: There are median sternotomy wires and mediastinal surgical clips. A left-sided PICC has been placed, distal tip in the expected location of the mid SVC. There is no pneumothorax. Small bilateral pleural effusions are noted. There is cardiomegaly with pulmonary vascular congestion similar to prior exam. No consolidation to suggest pneumonia. IMPRESSION: Status post placement of a left-sided PICC. No postprocedural pneumothorax identified. ACT 112: Negative or not required by law. The above report was generated using voice recognition software. It may contain grammatical, syntax o r spelling errors. Electronically signed by: Pancho Alvarado M.D. 01/24/2024 3:06 PM
--- NOTE | 2024-01-24 15:07 | XCELERA ---
[id number]
[2024-01-24] MEDS: PLASMA-LYTE A 1,000 ML IV SCH (15:44)
[2024-01-25 07:09] LABS: Albumin Level 2.8 gm/dl (3.4-5.0); BUN Creatinine Ratio 16.8 (10-20); Calcium 9.9 mg/dl (8.6-10.3); Est GFR (African American) 15.1 ml/min; Magnesium 2.1 mg/dl (1.7-2.4); Phosphorus 2.9 mg/dl (2.5-4.9)
[2024-01-25 07:29] LABS: Ferritin 77.1 ng/ml (8-388)
[2024-01-25 07:43] LABS: Basophils # (auto) 0.01 K/uL (0.00-0.20); Basophils % (auto) 0.2 %; Eosinophils # (auto) 0.14 K/uL (0.00-0.50); Eosinophils % (auto) 2.7 %; Hematocrit (blood only) 22.8 % (37.0-47.0); Hemoglobin 7.6 g/dl (12.0-16.0); Immature Granulocytes # (auto) 0.04 K/uL (0.01-0.20); Immature Granulocytes % (auto) 0.8 %; Lymphocytes # (auto) 0.78 K/uL (1.20-3.40); Lymphocytes % (auto) 15.3 %; Mean Corpuscular Hgb Conc 33.3 g/dL (32.0-36.0); Mean Corpuscular Volume 99.1 fL (80.0-100.0); Monocytes # (auto) 0.59 K/uL (0.11-0.59); Monocytes % (auto) 11.5 %; Neutrophils # (auto) 3.55 K/uL (1.40-6.50); Neutrophils % (auto) 69.5 %; Platelet Count 201 K/uL (130-400); RDW Coefficient of Variation 14.9 % (11.5-14.5); RDW Standard Deviation 53.2 fL (36.4-46.3); White Blood Count 5.11 K/ul (4.8-10.8)
[2024-01-25 08:06] LABS: Ovalocytes 1+; Polychromasia 1+
--- NOTE | 2024-01-25 08:28 | Nephrology Progress Note ---
Date of Service January 25, 2024 Assessment & Plan (1) ELADIA (acute kidney injury): Plan: * ELADIA attributed to dehydration last hospitalization * 01/24/24 echocardiogram: LVEF 65-70% * Creatinine improved to 3.1 this am * Patient now c/o exertional dyspnea. SaO2 drops from 96% to 83% w/ ambulation. CXR shows mild vascular congestion * Will resume Bumex at lower dose, 0.5 mg qAM * Patient noted to have worsening LUZ ELENA. Will prescribe Venofer 200 mg IV daily x 5 and administer Epogen 10,000 units SQ x1 * BMP in am (2) CKD (chronic kidney disease), stage IV: Plan: * CKD stage G4/A3 (advanced impairment). Baseline creatinine 2.53.0 with EGFR 15 cc/minute. Outpatient evaluation has revealed a benign urine sediment. UPCR 0.5. Renal ultrasound showed bilateral cortical thinning but no obstruc tion. Renal impairment is due to DKD, microvascular disease and hypertensive nephrosclerosis. (3) (HFpEF) heart failure with preserved ejection fraction: Plan: * Follows w/ [facility] clinic * 01/28 echocardiogram LVEF 65-70%, mild MR. RVSP 40-50 mm Hg * On Bumex 0.5 mg weight based protocol * Target weight 197 lbs (89 kg) (4) Atrial fibrillation: Plan: * On apixaban Admission and Anticipated Discharge Date Admission Date: January 23, 2024 Subjective Ms. Unger reports HOPPER this am. Resting SaO2 96%, drops to 83% with ambulation. Denies fever, productive cough or angina. Review of Systems Constitutional: no fever Eyes: no problem reported Ear, Nose, Mouth, Throat: no problem reported Respiratory: no problem reported Cardiovascular: no chest pain Gastrointestinal: no abdominal pain, no nausea, no vomiting and no diarrhea/loose stools Genitourinary: no dysuria and no urinary hesitancy Integumentary: no rash Physical Exam Constitutional: + frail appearing; not in distress Eyes: PERRL, conjunctivae normal, anicteric sclerae ENMT: Mouth: + dry oral mucous membranes Neck: trachea midline, no thyromegaly Respiratory: normal respiratory effort, lungs clear to auscultation Cardiovascular: Rate/Rhythm: regular rate and regular rhythm Heart Sounds: no cardiac rub Gastrointestinal (Abdomen): normal bowel sounds, soft, nontender, no hepatosplenomegaly Musculoskeletal: Extremities: no cyanosis Skin: no rashes, warm and dry + turgor decreased Neurologic: Speech / Cognition: normal speech and normal cognition Psychiatric: Affect: euthymic affect Results & Data Vital Signs (Past 12 Hours) Vital Signs Temp Pulse Pulse Resp BP Pulse Ox O2 Del Method 01/25/24 08:18 Room Air 01/25/24 07:20 66 01/25/24 03:14 36.7 C 63 18 175/71 H 94 Room Air 01/24/24 22:55 36.6 C 82 18 138/56 L 94 Room Air 01/24/24 22:36 Room Air Laboratory Results Laboratory Results - last 24 hr 01/24/24 01/24/24 01/24/24 10:08 12:01 17:15 WBC 5.80 RBC 2.51 L Hgb 8.0 L Hct 25.3 L MCV 100.8 H MCH 31.9 MCHC 31.6 L RDW Std Deviation 54.1 H RDW Coeff of Kirsty 14.8 H Plt Count 207 MPV 9.7 Immature Gran % (Auto) 0.7 Neut % (Auto) 75.1 Lymph % (Auto) 13.3 [place] % (Auto) 9.3 Eos % (Auto) 1.4 Baso % (Auto) 0.2 Neut # (Auto) 4.36 Lymph # (Auto) 0.77 L [place] # (Auto) 0.54 Eos # (Auto) 0.08 Baso # (Auto) 0.01 Immature Gran # (Auto) 0.04 Polychromasia Ovalocytes Sodium 135 L Potassium 4.1 Chloride 102 Carbon Dioxide 25 Anion Gap 8 BUN 58 H Creatinine 3.70 H Est Cr Clr Drug Dosing 12.7 Est GFR ( Amer) 12.5 Est GFR (Non-Af Amer) 10.8 BUN/Creatinine Ratio 15.7 Glucose 203 H POC Glucose 155 H 163 H Calcium 10.1 Phosphorus 3.3 Magnesium 2.1 Iron TIBC Unsaturated IBC Transferrin % Sat Ferritin Albumin 3.1 L Urine Color Urine Appearance Urine pH Ur Specific [place] Urine Protein Urine Glucose (UA) Urine Ketones Urine Blood Urine Nitrite Urine Bilirubin Urine Urobilinogen Ur Leukocyte Esterase Urine WBC (Auto) Urine RBC (Auto) U Hyaline Cast (Auto) U Epithel Cells (Auto) Urine Bacteria (Auto) Ur Random Creatinine Ur Random Sodium 01/24/24 01/24/24 01/25/24 20:19 Unknown 06:25 WBC 5.11 RBC 2.30 L Hgb 7.6 L Hct 22.8 L MCV 99.1 MCH 33.0 MCHC 33.3 RDW Std Deviation 53.2 H RDW Coeff of Kirsty 14.9 H Plt Count 201 MPV 10.0 Immature Gran % (Auto) 0.8 Neut % (Auto) 69.5 Lymph % (Auto) 15.3 [place] % (Auto) 11.5 Eos % (Auto) 2.7 Baso % (Auto) 0.2 Neut # (Auto) 3.55 Lymph # (Auto) 0.78 L [place] # (Auto) 0.59 Eos # (Auto) 0.14 Baso # (Auto) 0.01 Immature Gran # (Auto) 0.04 Polychromasia 1+ Ovalocytes 1+ Sodium 139 Potassium 4.0 Chloride 105 Carbon Dioxide 28 Anion Gap 6 BUN 53 H Creatinine 3.16 H D Est Cr Clr Drug Dosing 15.0 Est GFR ( Amer) 15.1 Est GFR (Non-Af Amer) 13.0 BUN/Creatinine Ratio 16.8 Glucose 108 H POC Glucose 150 H Calcium 9.9 Phosphorus 2.9 Magnesium 2.1 Iron 45 TIBC 199 L Unsaturated IBC 154 L Transferrin % Sat 23 Ferritin 77.1 Albumin 2.8 L Urine Color Yellow Urine Appearance Clear Urine pH 6.0 Ur Specific [place] 1.013 Urine Protein Trace H Urine Glucose (UA) Negative Urine Ketones Negative Urine Blood Negative Urine Nitrite Negative Urine Bilirubin Negative Urine Urobilinogen Negative Ur Leukocyte Esterase Trace H Urine WBC (Auto) 0-5 Urine RBC (Auto) 0-2 U Hyaline Cast (Auto) 3-5 H U Epithel Cells (Auto) 11-20 H Urine Bacteria (Auto) None Seen Ur Random Creatinine 85.0 Ur Random Sodium 46 Diagnostic Findings CXR - pending PG Care Time/CCT Total # of Minutes Spent Total Time Spent with Patient: Total time spent is greater than 50% in coordination of care (as documented) at patient's floor/unit and/or counseling patient: Coding Level of Care Code 46041 SUB INP/OBS CARE 3/50MIN Diagnoses ELADIA (acute kidney injury) N17.9 CKD (chronic kidney disease), stage IV N18.4 (HFpEF) heart failure with preserved ejection fraction I50.30 Atrial fibrillation I48.91
--- NOTE | 2024-01-25 09:00 | Hospitalist Progress Note ---
Date of Service January 25, 2024 Assessment & Plan (1) Acute kidney injury superimposed on CKD: (2) CKD (chronic kidney disease), stage IV: (3) (HFpEF) heart failure with preserved ejection fraction: (4) Brain TIA: (5) Paroxysmal atrial fibrillation: (6) CAD (coronary artery disease): Plan 83-year-old female with past medical history of coronary artery disease status post CABG in 2006, chronic diastolic congestive heart failure with preserved ejection fraction, history of TIA, DVT, paroxysmal atrial fibrillation on anticoagulation with apixaban, history of colon cancer in 2020 status post hemicolectomy, history of breast cancer and 2018 status post partial mastectomy and radiation and has finished 4+ years of tamoxifen with recently admitted to [facility] from 01/17/2024 to 01/20/2024 for ELADIA superimposed on CKD with repeat creatinine outpatient being elevated at 3.89 and she was referred to the ED. #ELADIA superimposed on chronic kidney disease stage IV #Hypercalcemia Baseline creatinine is between 2.5-3.0 CT abdomen pelvis shows no hydronephrosis with bilateral pleural effusions Nephrology following the patient She received 1 L of Plasma-Lyte yesterday after left arm PICC line was placed Bumex has been held She is not complaining of exertional dyspnea, saturations are 95% on room air As per my discussion with hub bander Dr. Clement Butler who was at the bedside: Plan is to get a chest x-ray, check patient's saturations while ambulating and if her saturations drop when she is ambulating then nephrology is planning on starting her on Bumex 0.5 mg daily instead of twice daily Nephrology is also planning on giving her Epogen and IV iron Avoid nephrotoxic agents including NSAIDs Monitor renal function electrolytes #Coronary disease #Essential hypertension #Chronic diastolic congestive heart failure with preserved ejection fraction of 60% with grade 2 diastolic dysfunction #Paroxysmal atrial fibrillation on anticoagulation #History of TIA #Peripheral vascular disease Continue apixaban 2.5 mg p.o. twice daily for anticoagulation Continue Imdur 90 mg p.o. every morning, Toprol-XL 200 mg p.o. twice daily, hydralazine 100 mg p.o. twice daily Continue atorvastatin 40 mg p.o. nightly Continue Pletal 100 mg p.o. twice daily Echo showed EF of 65% with moderate pulmonary hypertension which is new Monitor vital signs #Anemia of chronic kidney disease H&H is stable No active bleeding Nephrology is planning on giving her Epogen and IV iron Monitor intermittently weakness #Type 2 diabetes mellitus A1c is 5.5 from 01/18/2024 Continue Lantus 10 units subcutaneous nightly Accu-Cheks before every meal and nightly with sliding scale insulin coverage Monitor glycemic control CODE STATUS: Full code DVT prophylaxis: Patient on apixaban Discharge planning based on nephrology recommendations and PT evaluation and recommendations Care plan discussed with patient, nursing staff Admission and Anticipated Discharge Date Admission Date: January 23, 2024 Subjective Patient seen and examined Reports feeling short of breath especially when she is trying to ambulate to the bathroom which is new Denies any chest pain, nausea, vomiting, diarrhea, abdominal pain She received 1 L of fluid yesterday per nephrology and also has a left arm PICC line Renal function has improved after IV fluids but patient not experiencing shortness of breath when ambulating Review of Systems Review of Systems: As per HPI Physical Exam Physical Exam: General: No acute distress, speaking in full sentences Psych: Awake and alert HEENT: Anicteric sclera, moist oral mucosa CVS: Regular rate and rhythm Lungs: Bilateral air entry with coarse crackles at left base, no wheezing noted Abdomen: Soft, nontender, no rebound, no guarding Ext: No lower extremity edema, no calf tenderness Neuro: No focal motor deficits noted Results & Data Results & Data Vital Signs (Past 12 Hours) Vital Signs Temp Pulse Pulse Resp BP BP Pulse Ox 01/25/24 08:33 36.8 C 79 16 174/71 H 95 01/25/24 08:18 01/25/24 07:20 66 01/25/24 03:14 36.7 C 63 18 175/71 H 94 01/24/24 22:55 36.6 C 82 18 138/56 L 94 01/24/24 22:36 O2 Del Method 01/25/24 08:33 Room Air 01/25/24 08:18 Room Air 01/25/24 07:20 01/25/24 03:14 Room Air 01/24/24 22:55 Room Air 01/24/24 22:36 Room Air Laboratory Results Laboratory Results - last 24 hr 01/24/24 01/24/24 01/24/24 10:08 12:01 17:15 WBC 5.80 RBC 2.51 L Hgb 8.0 L Hct 25.3 L MCV 100.8 H MCH 31.9 MCHC 31.6 L RDW Std Deviation 54.1 H RDW Coeff of Kirsty 14.8 H Plt Count 207 MPV 9.7 Immature Gran % (Auto) 0.7 Neut % (Auto) 75.1 Lymph % (Auto) 13.3 [place] % (Auto) 9.3 Eos % (Auto) 1.4 Baso % (Auto) 0.2 Neut # (Auto) 4.36 Lymph # (Auto) 0.77 L [place] # (Auto) 0.54 Eos # (Auto) 0.08 Baso # (Auto) 0.01 Immature Gran # (Auto) 0.04 Polychromasia Ovalocytes Sodium 135 L Potassium 4.1 Chloride 102 Carbon Dioxide 25 Anion Gap 8 BUN 58 H Creatinine 3.70 H Est Cr Clr Drug Dosing 12.7 Est GFR ( Amer) 12.5 Est GFR (Non-Af Amer) 10.8 BUN/Creatinine Ratio 15.7 Glucose 203 H POC Glucose 155 H 163 H Calcium 10.1 Phosphorus 3.3 Magnesium 2.1 Iron TIBC Unsaturated IBC Transferrin % Sat Ferritin Albumin 3.1 L Urine Color Urine Appearance Urine pH Ur Specific [place] Urine Protein Urine Glucose (UA) Urine Ketones Urine Blood Urine Nitrite Urine Bilirubin Urine Urobilinogen Ur Leukocyte Esterase Urine WBC (Auto) Urine RBC (Auto) U Hyaline Cast (Auto) U Epithel Cells (Auto) Urine Bacteria (Auto) Ur Random Creatinine Ur Random Sodium 01/24/24 01/24/24 01/25/24 20:19 Unknown 06:25 WBC 5.11 RBC 2.30 L Hgb 7.6 L Hct 22.8 L MCV 99.1 MCH 33.0 MCHC 33.3 RDW Std Deviation 53.2 H RDW Coeff of Kirsty 14.9 H Plt Count 201 MPV 10.0 Immature Gran % (Auto) 0.8 Neut % (Auto) 69.5 Lymph % (Auto) 15.3 [place] % (Auto) 11.5 Eos % (Auto) 2.7 Baso % (Auto) 0.2 Neut # (Auto) 3.55 Lymph # (Auto) 0.78 L [place] # (Auto) 0.59 Eos # (Auto) 0.14 Baso # (Auto) 0.01 Immature Gran # (Auto) 0.04 Polychromasia 1+ Ovalocytes 1+ Sodium 139 Potassium 4.0 Chloride 105 Carbon Dioxide 28 Anion Gap 6 BUN 53 H Creatinine 3.16 H D Est Cr Clr Drug Dosing 15.0 Est GFR ( Amer) 15.1 Est GFR (Non-Af Amer) 13.0 BUN/Creatinine Ratio 16.8 Glucose 108 H POC Glucose 150 H Calcium 9.9 Phosphorus 2.9 Magnesium 2.1 Iron 45 TIBC 199 L Unsaturated IBC 154 L Transferrin % Sat 23 Ferritin 77.1 Albumin 2.8 L Urine Color Yellow Urine Appearance Clear Urine pH 6.0 Ur Specific [place] 1.013 Urine Protein Trace H Urine Glucose (UA) Negative Urine Ketones Negative Urine Blood Negative Urine Nitrite Negative Urine Bilirubin Negative Urine Urobilinogen Negative Ur Leukocyte Esterase Trace H Urine WBC (Auto) 0-5 Urine RBC (Auto) 0-2 U Hyaline Cast (Auto) 3-5 H U Epithel Cells (Auto) 11-20 H Urine Bacteria (Auto) None Seen Ur Random Creatinine 85.0 Ur Random Sodium 46 01/25/24 08:07 WBC RBC Hgb Hct MCV MCH MCHC RDW Std Deviation RDW Coeff of Kirsty Plt Count MPV Immature Gran % (Auto) Neut % (Auto) Lymph % (Auto) [place] % (Auto) Eos % (Auto) Baso % (Auto) Neut # (Auto) Lymph # (Auto) [place] # (Auto) Eos # (Auto) Baso # (Auto) Immature Gran # (Auto) Polychromasia Ovalocytes Sodium Potassium Chloride Carbon Dioxide Anion Gap BUN Creatinine Est Cr Clr Drug Dosing Est GFR ( Amer) Est GFR (Non-Af Amer) BUN/Creatinine Ratio Glucose POC Glucose 129 H Calcium Phosphorus Magnesium Iron TIBC Unsaturated IBC Transferrin % Sat Ferritin Albumin Urine Color Urine Appearance Urine pH Ur Specific [place] Urine Protein Urine Glucose (UA) Urine Ketones Urine Blood Urine Nitrite Urine Bilirubin Urine Urobilinogen Ur Leukocyte Esterase Urine WBC (Auto) Urine RBC (Auto) U Hyaline Cast (Auto) U Epithel Cells (Auto) Urine Bacteria (Auto) Ur Random Creatinine Ur Random Sodium PG Care Time/CCT Total # of Minutes Spent Total Time Spent with Patient: Total time spent is greater than 50% in coordination of care (as documented) at patient's floor/unit and/or counseling patient: Coding Level of Care Code 58735 SUB INP/OBS CARE 3/50MIN Diagnoses Acute kidney injury superimposed on CKD N17.9; N18.9 CKD (chronic kidney disease), stage IV N18.4 (HFpEF) heart failure with preserved ejection fraction I50.30 Brain TIA G45.9 Paroxysmal atrial fibrillation I48.0 Coronary artery disease involving [place] coronary artery of [place] heart without angina pectoris I25.10 Associated angina: without angina Coronary Disease-Associated Artery/Lesion type: [place] artery [place] vs. transplanted heart: [place] heart (6) CAD (coronary artery disease) Associated angina: without angina Coronary Disease-Associated Artery/Lesion type: [place] artery [place] vs. transplanted heart: [place] heart Qualified Code(s): I25.10 - Atherosclerotic heart disease of [place] coronary artery without angina pectoris
[2024-01-25] MEDS: EPOETIN ALFA 10,000 UNITS/ML VIAL SQ ONE (12:23)
[2024-01-25] MEDS: BUMETANIDE 1 MG TAB PO ONE (12:23)
[2024-01-25] MEDS: IRON SUCROSE 200 MG in 0.9 % SODIUM CHLORIDE 100 ML IV SCH (12:24)
--- NOTE | 2024-01-25 12:38 | XRay Report ---
XR chest 1V portable HISTORY: 83 years-old Female dyspnea acute shortness of breath COMPARISON: 01/24/2024 TECHNIQUE: AP view of the chest FINDINGS: Cardiac silhouette is enlarged. Median sternotomy. Atherosclerosis of the aorta. Pulmonary vascular c ongestion. Small pleural effusions with bibasilar densities. No pneumothorax. Unchanged positioning o f the left-sided PICC. Findings are overall similar to yesterday's study. IMPRESSION: 1. Cardiomegaly with stable appearance of the interstitial pulmonary edema. 2. Layering pleural effusions with bibasilar opacities are unchanged. 3. Unchanged positioning of the left-sided PICC. ACT 112: Negative or not required by law. The above report was generated using voice recognition software. It may contain grammatical, syntax o r spelling errors. Electronically signed by: Pancho Alvarado M.D. 01/25/2024 12:36 PM
[2024-01-26 06:42] LABS: Basophils # (auto) 0.01 K/uL (0.00-0.20); Basophils % (auto) 0.2 %; Eosinophils # (auto) 0.19 K/uL (0.00-0.50); Eosinophils % (auto) 4.2 %; Hematocrit (blood only) 24.3 % (37.0-47.0); Hemoglobin 7.8 g/dl (12.0-16.0); Immature Granulocytes # (auto) 0.02 K/uL (0.01-0.20); Immature Granulocytes % (auto) 0.4 %; Lymphocytes # (auto) 0.57 K/uL (1.20-3.40); Lymphocytes % (auto) 12.5 %; Mean Corpuscular Hemoglobin 32.4 pg (25.0-34.0); Mean Corpuscular Hgb Conc 32.1 g/dL (32.0-36.0); Mean Corpuscular Volume 100.8 fL (80.0-100.0); Mean Platelet Volume 9.8 fL (9.4-12.4); Monocytes # (auto) 0.52 K/uL (0.11-0.59); Monocytes % (auto) 11.4 %; Neutrophils # (auto) 3.24 K/uL (1.40-6.50); Neutrophils % (auto) 71.3 %; Nucleated RBC # (auto) 0.02 K/uL (0.00-0.12); Nucleated RBC % (auto) 0.4 %; Platelet Count 185 K/uL (130-400); RDW Standard Deviation 55.7 fL (36.4-46.3); Red Blood Count 2.41 M/uL (4.20-5.40); White Blood Count 4.55 K/ul (4.8-10.8)
[2024-01-26 07:02] LABS: Albumin Level 2.8 gm/dl (3.4-5.0); BUN Creatinine Ratio 16.9 (10-20); Calcium 9.6 mg/dl (8.6-10.3); Creatinine Clr Calc Pharmacy 16.1 ml/min; Est GFR (African American) 17.2 ml/min; Est GFR (Non-African American) 14.8 ml/min; Phosphorus 2.7 mg/dl (2.5-4.9); Potassium 3.7 mmol/L (3.5-5.1)
[2024-01-26 07:06] LABS: Ovalocytes 1+; Polychromasia 1+
[2024-01-26] MEDS: BUMETANIDE 1 MG TAB PO SCH (09:17)
--- NOTE | 2024-01-26 10:10 | Hospitalist Progress Note ---
Date of Service January 26, 2024 Assessment & Plan (1) Acute kidney injury superimposed on CKD: (2) CKD (chronic kidney disease), stage IV: (3) (HFpEF) heart failure with preserved ejection fraction: (4) Brain TIA: (5) Paroxysmal atrial fibrillation: (6) CAD (coronary artery disease): Plan 83-year-old female with past medical history of coronary artery disease status post CABG in 2006, chronic diastolic congestive heart failure with preserved ejection fraction, history of TIA, DVT, paroxysmal atrial fibrillation on anticoagulation with apixaban, history of colon cancer in 2020 status post hemicolectomy, history of breast cancer and 2018 status post partial mastectomy and radiation and has finished 4+ years of tamoxifen with recently admitted to [facility] from 01/17/2024 to 01/20/2024 for ELADIA superimposed on CKD with repeat creatinine outpatient being elevated at 3.89 and she was referred to the ED. #ELADIA superimposed on chronic kidney disease stage IV #Hypercalcemia Baseline creatinine is between 2.5-3.0 CT abdomen pelvis shows no hydronephrosis with bilateral pleural effusions Nephrology following the patient She received 1 L of Plasma-Lyte yesterday after left arm PICC line was placed Bumex has been held She is not complaining of exertional dyspnea, saturations are 95% on room air As per my discussion with appliquer zigzag Dr. Clement Butler who was at the bedside: Plan is to get a chest x-ray, check patient's saturations while ambulating and if her saturations drop when she is ambulating then nephrology is planning on starting her on Bumex 0.5 mg daily instead of twice daily Nephrology is also planning on giving her Epogen and IV iron Avoid nephrotoxic agents including NSAIDs Monitor renal function electrolytes #Coronary disease #Essential hypertension #Chronic diastolic congestive heart failure with preserved ejection fraction of 60% with grade 2 diastolic dysfunction #Paroxysmal atrial fibrillation on anticoagulation #History of TIA #Peripheral vascular disease Continue apixaban 2.5 mg p.o. twice daily for anticoagulation Continue Imdur 90 mg p.o. every morning, Toprol-XL 200 mg p.o. twice daily, hydralazine 100 mg p.o. twice daily Continue atorvastatin 40 mg p.o. nightly Continue Pletal 100 mg p.o. twice daily Echo showed EF of 65% with moderate pulmonary hypertension which is new Monitor vital signs #Anemia of chronic kidney disease H&H is stable No active bleeding Nephrology is planning on giving her Epogen and IV iron Monitor intermittently weakness #Type 2 diabetes mellitus A1c is 5.5 from 01/18/2024 Continue Lantus 10 units subcutaneous nightly Accu-Cheks before every meal and nightly with sliding scale insulin coverage Monitor glycemic control CODE STATUS: Full code DVT prophylaxis: Patient on apixaban Discharge planning based on nephrology recommendations and PT evaluation and recommendations Care plan discussed with patient, nursing staff Admission and Anticipated Discharge Date Admission Date: January 23, 2024 Review of Systems Review of Systems: As per HPI Physical Exam Physical Exam: General: No acute distress, speaking in full sentences Psych: Awake and alert HEENT: Anicteric sclera, moist oral mucosa CVS: Regular rate and rhythm Lungs: Bilateral air entry with coarse crackles at left base, no wheezing noted Abdomen: Soft, nontender, no rebound, no guarding Ext: No lower extremity edema, no calf tenderness Neuro: No focal motor deficits noted Results & Data Results & Data Vital Signs (Past 12 Hours) Vital Signs Temp Pulse Pulse Resp BP Pulse Ox O2 Del Method 01/26/24 09:11 Room Air 01/26/24 08:12 36.8 C 64 20 180/61 H 93 Room Air 01/26/24 07:18 62 01/26/24 02:48 36.8 C 68 20 154/52 H 94 Room Air 01/25/24 22:21 36.8 C 62 20 144/52 H 99 Room Air Laboratory Results Laboratory Results - last 24 hr 01/25/24 01/25/24 01/25/24 12:10 17:04 20:52 WBC RBC Hgb Hct MCV MCH MCHC RDW Std Deviation RDW Coeff of Kirsty Plt Count MPV Immature Gran % (Auto) Neut % (Auto) Lymph % (Auto) [place] % (Auto) Eos % (Auto) Baso % (Auto) Neut # (Auto) Lymph # (Auto) [place] # (Auto) Eos # (Auto) Baso # (Auto) Immature Gran # (Auto) Absolute Nucleated RBC Nucleated RBC % (auto) Polychromasia Ovalocytes Sodium Potassium Chloride Carbon Dioxide Anion Gap BUN Creatinine Est Cr Clr Drug Dosing Est GFR ( Amer) Est GFR (Non-Af Amer) BUN/Creatinine Ratio Glucose POC Glucose 123 H 135 H 157 H Calcium Phosphorus Magnesium Albumin 01/26/24 01/26/24 06:05 07:55 WBC 4.55 L RBC 2.41 L Hgb 7.8 L Hct 24.3 L MCV 100.8 H MCH 32.4 MCHC 32.1 RDW Std Deviation 55.7 H RDW Coeff of Kirsty 15.0 H Plt Count 185 MPV 9.8 Immature Gran % (Auto) 0.4 Neut % (Auto) 71.3 Lymph % (Auto) 12.5 [place] % (Auto) 11.4 Eos % (Auto) 4.2 Baso % (Auto) 0.2 Neut # (Auto) 3.24 Lymph # (Auto) 0.57 L [place] # (Auto) 0.52 Eos # (Auto) 0.19 Baso # (Auto) 0.01 Immature Gran # (Auto) 0.02 Absolute Nucleated RBC 0.02 Nucleated RBC % (auto) 0.4 Polychromasia 1+ Ovalocytes 1+ Sodium 139 Potassium 3.7 Chloride 106 Carbon Dioxide 28 Anion Gap 5 BUN 48 H Creatinine 2.84 H D Est Cr Clr Drug Dosing 16.1 Est GFR ( Amer) 17.2 Est GFR (Non-Af Amer) 14.8 BUN/Creatinine Ratio 16.9 Glucose 77 POC Glucose 84 Calcium 9.6 Phosphorus 2.7 Magnesium 2.0 Albumin 2.8 L PG Care Time/CCT Total # of Minutes Spent Total Time Spent with Patient: Total time spent is greater than 50% in coordination of care (as documented) at patient's floor/unit and/or counseling patient: Coding Diagnoses Acute kidney injury superimposed on CKD N17.9; N18.9 CKD (chronic kidney disease), stage IV N18.4 (HFpEF) heart failure with preserved ejection fraction I50.30 Brain TIA G45.9 Paroxysmal atrial fibrillation I48.0 Coronary artery disease involving [place] coronary artery of [place] heart without angina pectoris I25.10 Coronary Disease-Associated Artery/Lesion type: [place] artery [place] vs. transplanted heart: [place] heart Associated angina: without angina (6) CAD (coronary artery disease) Coronary Disease-Associated Artery/Lesion type: [place] artery [place] vs. transplanted heart: [place] heart Associated angina: without angina Qualified Code(s): I25.10 - Atherosclerotic heart disease of [place] coronary artery without angina pectoris
[2024-01-26 10:48] VITALS: O2SAT 100
[2024-01-26 11:32] VITALS: PULSE 73; RESP 20; TEMP 97.9
--- NOTE | 2024-01-26 12:17 | Discharge Summary ---
Discharge Summary Date of Service January 26, 2024 Principal Dx & Hospital Course #1 = Principal Diagnosis (1) Acute kidney injury superimposed on CKD: (2) CKD (chronic kidney disease), stage IV: (3) (HFpEF) heart failure with preserved ejection fraction: (4) Brain TIA: (5) Paroxysmal atrial fibrillation: (6) CAD (coronary artery disease): Plan 83-year-old female with past medical history of coronary artery disease status post CABG in 2006, chronic diastolic congestive heart failure with preserved ejection fraction, history of TIA, DVT, paroxysmal atrial fibrillation on anticoagulation with apixaban, history of colon cancer in 2020 status post hemicolectomy, history of breast cancer and 2018 status post partial mastectomy and radiation and has finished 4+ years of tamoxifen with recently admitted to [facility] from 01/17/2024 to 01/20/2024 for ELADIA superimposed on CKD with repeat creatinine outpatient being elevated at 3.89 and she was referred to the ED. #ELADIA superimposed on chronic kidney disease stage IV #Hypercalcemia Baseline creatinine is between 2.5-3.0 CT abdomen pelvis shows no hydronephrosis with bilateral pleural effusions Nephrology saw the patient She received 1 L of Plasma-Lyte after left arm PICC line was placed Bumex was initially held but after IV fluids patient started experiencing exertional dyspnea and was desaturating on ambulation Nephrology saw the patient, chest x-ray showed some fluid overload and nephrology resumed her on Bumex but at a lower dose of 0.5 mg daily instead of twice daily Patient's renal function has improved, calcium levels have normalized Patient's renal function is at her baseline Patient no longer is feeling short of breath at rest or on exertion. She had a two-step oxygen evaluation done and does not require home oxygen I spoke with nephrology on-call today and from their perspective patient can be discharged home I have advised the patient to follow-up with her own laboratory manager Dr. Butler within 1 week to monitor renal function Avoid nephrotoxic agents including NSAIDs Outpatient follow-up with nephrology on discharge #Coronary artery disease #Essential hypertension #Chronic diastolic congestive heart failure with preserved ejection fraction of 60% with grade 2 diastolic dysfunction #Paroxysmal atrial fibrillation on anticoagulation #History of TIA #Peripheral vascular disease #Pulmonary hypertension Outpatient tabulating clerk is Dr. William Betancourt Continue apixaban 2.5 mg p.o. twice daily for anticoagulation Continue Imdur 90 mg p.o. every morning, Toprol-XL 200 mg p.o. twice daily, h ydralazine 100 mg p.o. twice daily Continue atorvastatin 40 mg p.o. nightly Continue Pletal 100 mg p.o. twice daily Echo showed EF of 65% with moderate pulmonary hypertension which is new Outpatient follow-up with cardiology on discharge #Anemia of chronic kidney disease H&H is stable No active bleeding Nephrology ordered Epogen and IV iron Patient received 2 doses of IV iron H&H is stable, no active bleeding Outpatient follow-up with nephrology #Type 2 diabetes mellitus A1c is 5.5 from 01/18/2024 Continue Lantus 10 units subcutaneous nightly Accu-Cheks before every meal and nightly with sliding scale insulin coverage Outpatient follow-up with PCP Patient declined home health. She declined to work with physical therapy yesterday. Patient wishes to go home without any services. Patient seen and examined today. Renal function has improved and she is no longer dyspneic. She is saturating well on room air and does not require oxygen to go home. I have gone over the discharge care plan with the patient and answered all her questions. This discharge took greater than 30 minutes to coordinate Admission HPI Per Admitting Provider The patient is a 83-year-old female with a past medical history including urine tract infection, anemia chronic disease, breast cancer, colon cancer, PAF, ELADIA on CKD, diabetes mellitus, peripheral neuropathy, HFpEF, brain TIA, DVT, PVD, hyperparathyroidism, history of CABG, on chronic anticoagulation. She was most recently mated to [facility] from 01/16-01/20/2024, with discharge creatinine of 3.50. Outpatient creatinine was 3.89, and she was referred to the ED due to baseline creatinine of 2.50 a few months ago. The patient herself has no specific complaints, and reports that she has been eating and drinking as per usual Discharge Exam General: No acute distress, speaking in full sentences Psych: Awake and alert HEENT: Anicteric sclera, moist oral mucosa CVS: Regular rate and rhythm Lungs: Bilateral air entry with mild crackles at left base, no wheezing noted, no use of accessory muscles Abdomen: Soft, nontender, no rebound, no guarding Ext: No lower extremity edema, no calf tenderness Neuro: No focal motor deficits noted Discharge Plan Discharge Items Patient Disposition: Home - Self-Care Reason For Visit: ELADIA SUPERIMPOSED ON CKD Discharge Diagnosis: #ELADIA superimposed on chronic kidney disease stage IV #Coronary artery disease #Essential hypertension #Chronic diastolic congestive heart failure with preserved ejection fraction of 60% with grade 2 diastolic dysfunction #Paroxysmal atrial fibrillation on anticoagulation #History of TIA #Peripheral vascular disease #Anemia of chronic kidney disease #Type 2 diabetes mellitus Condition on Discharge: Fair Activity: Resume your previous activity Non-emergency contact: Primary Care Provider Call non-emergency contact if: you have any medication questions, your symptoms worsen and you have a fever Follow-up/Referrals: Isaura Rashid CRNP [Primary Care Provider] - Clement Butler MD [Physician] - William Betancourt Jr, MD, [facility] [Physician] - Diet: Carb Consistent or DM2 and Heart Healthy Addtl Attending Provider Instructions: DISCHARGE INSTRUCTION TO PATIENT/FAMILY: Follow-up with your primary care provider within 1 week regarding: Posthospital discharge, medication review, medication refills and follow-up on all your medical problems, LABS Please take all your discharge medications, discharge information and discharge instructions to all your doctors appointments. Avoid all NSAIDs including ibuprofen, Motrin, Advil, Aleve, naproxen, meloxicam, Toradol, diclofenac Labs through PCP in 1 week: CBC, CMP, MG Follow-up with your outpatient laboratory manager Dr. Butler within 1 week to monitor your kidney function Follow-up with your outpatient tabulating clerk Dr. Betancourt regarding heart failure, echo with new finding of pulmonary hypertension Pending Studies at Discharge: No Stand-Alone Forms: My [facility] [employer], Smoking Cessation Medications and DC Order Prescriptions: Continued Procrit 2,000 unit/mL solution 0 unit subcut Q14D Rx Instructions: Unable to verify medication with pharmacy/patient at this date/time. Original Directions: 2000units subcut every 14 days atorvastatin 40 mg tablet 40 mg PO HS Qty: 90 3RF cilostazol 100 mg tablet 100 mg PO BID Qty: 180 3RF Rx Instructions: TAKE 1 TABLET TWICE A DAY calcitriol [Rocaltrol] 0.25 mcg capsule 0.25 mcg PO DAILY Qty: 90 3RF insulin aspart U-100 [Novolog FlexPen U-100 Insulin] 100 unit/mL (3 mL) insulin pen See Rx Instructions SQ TID Qty: 60 3RF Rx Instructions: use per sliding scale up to 60 units daily SQ isosorbide mononitrate 60 mg tablet extended release 24 hr 60 mg PO QAM Qty: 90 3RF Rx Instructions: TOTAL DOSE 90 MG--TAKES WITH 30 MG TAB. isosorbide mononitrate 30 mg tablet extended release 24 hr 30 mg PO QAM Qty: 90 3RF Rx Instructions: TOTAL DOSE 90 MG--TAKES WITH 60 MG TAB. alendronate [Fosamax] 70 mg tablet 70 mg PO WK Qty: 12 3RF Rx Instructions: SUNDAYS Eliquis 2.5 mg tablet 2.5 mg PO BID Qty: 180 3RF (DME) pen needle, diabetic [BD Ultra-Fine Short Pen Needle] 31 gauge x 5/16" needle See Dose Instructions .ROUTE .MEDSUPPLY Qty: 30 Rx Instructions: use 1 needle 4 x daily metoprolol succinate 200 mg tablet extended release 24 hr 200 mg PO BID Qty: 180 3RF omega 4-rac-msz-fish oil [Fish Oil] 1,000 mg (120 mg-180 mg) Capsule 1 cap PO QPM Rx Instructions: Unable to verify OTC meds at this date/time. cyanocobalamin (vitamin B-12) 1,000 mcg Capsule 1,000 mcg PO QAM Rx Instructions: Unable to verify OTC meds at this date/time. magnesium oxide 400 mg Capsule 400 mg PO BID Rx Instructions: Unable to verify OTC meds at this date/time. diclofenac sodium [Voltaren Arthritis Pain] 1 % gel 2 g topical QID PRN (Reason: arthritic pain ) Qty: 100 3RF Rx Instructions: Unable to verify OTC meds at this date/time. hydralazine 100 mg tablet 0 mg PO TID Rx Instructions: Unable to verify medication with pharmacy/patient at this date/time. Original Directions: 100mg by mouth TID insulin glargine [Lantus Solostar U-100 Insulin] 100 unit/mL (3 mL) insulin pen See Rx Instructions .ROUTE .COMPLEX Rx Instructions: Per mailorder: 39 units at bedtime. However, previously confirmed on 01/20/24 as 10units at bedtime. Unable to verify w/ patient at date/time how many units they actually inject. Changed bumetanide 0.5 mg tablet 0.5 mg PO DAILY Qty: 120 3RF Discharge Orders: Discharge Order- CHF (Routine); Ordered 01/26/24 Ordered By: Isaac Blue/Other Patient Handouts: Heart Failure Flare Up Signs, Heart Failure Dc Admission Data Admit Date/Time: 01/23/24 20:57 Attending Provider: Isaac Schofield Admit Provider: John Holland Primary Care Provider: Isaura Rashid Other Providers: John Holland; Clement Butler Hospital Stay Data Consultations 01/23/24 20:48 ED Decision to Admit Stat 01/24/24 07:31 Consult Nephrology Routine Procedures Performed Chest X-Ray 01/23/24 18:25 XR chest 1V portable CLINICAL HISTORY: Weakness. COMPARISON STUDY: Chest CT January 12, 2022. Chest radiograph January 17, 2024. FINDINGS: There are median sternotomy wires and mediastinal surgical clips. There is no pneumothorax. Small bilateral pleural effusions are noted. There is cardiomegaly with pulmonary vascular congestion similar to prior exam. No consolidation to suggest pneumonia. IMPRESSION: 1. Cardiomegaly with pulmonary vascular congestion. 2. Small bilateral pleural effusions. ACT 112: Negative or not required by law. Electronically signed by: Jose Wong M.D. 01/24/2024 7:02 AM Abdomen/Pelvis CT 01/23/24 19:04 Exam(s): CT ABDOMEN + PELVIS Without Contrast EXAM: CT Abdomen and Pelvis Without Intravenous Contrast CLINICAL HISTORY: Reason for exam: eladia, DEHYDRATION. TECHNIQUE: Axial computed tomography images of the abdomen and pelvis without intravenous contrast. CTDI is 27.22 mGy and DLP is 1281.19 mGy-cm. Automated exposure control was utilized for the study. A dose lowering technique was utilized adhering to the principles of ALARA. COMPARISON: No relevant prior studies available. FINDINGS: Lung bases: Unremarkable. No mass. No consolidation. Pleural space: Bilateral pleural effusions. Heart: Cardiomegaly. ABDOMEN: Liver: Unremarkable. Gallbladder and bile ducts: Unremarkable. No calcified stones. No ductal dilation. Pancreas: Unremarkable. No ductal dilation. Spleen: Unremarkable. No splenomegaly. Adrenals: Unremarkable. No mass. Kidneys and ureters: Diffuse bilateral renal atrophy. 2.5 cm left renal cyst. 2.6 cm right renal cyst. No obstructing stones. No hydronephrosis. Stomach and bowel: There is a right paracentral midline anterior abdominal wall hernia containing a loop of unobstructed:. Postoperative changes of the right hemicolon. No mucosal thickening. PELVIS: Appendix: No findings to suggest acute appendicitis. Bladder: Unremarkable. No stones. Reproductive: Unremarkable as visualized. ABDOMEN and PELVIS: Intraperitoneal space: Unremarkable. No free air. No significant fluid collection. Bones/joints: Prominent partially calcified uterus bone windows demonstrate multilevel degenerative disease of the lumbar spine. No acute fracture. No dislocation. Soft tissues: See above. Vasculature: Diffuse vascular calcifications. No abdominal aortic aneurysm. Lymph nodes: Unremarkable. No enlarged lymph nodes. IMPRESSION: Bilateral pleural effusions. Other chronic changes as described above Electronically signed by: Jason Cheatham MD 01/23/24 20:18 PM Chest X-Ray 01/24/24 14:23 XR chest 1V portable HISTORY: 83 years-old Female left arm picc placement status post placement of a left-sided PICC COMPARISON: 01/23/2024 TECHNIQUE: AP view of the chest FINDINGS: There are median sternotomy wires and mediastinal surgical clips. A left-sided PICC has been placed, distal tip in the expected location of the mid SVC. There is no pneumothorax. Small bilateral pleural effusions are noted. There is cardiomegaly with pulmonary vascular congestion similar to prior exam. No consolidation to suggest pneumonia. IMPRESSION: Status post placement of a left-sided PICC. No postprocedural pneumothorax identified. ACT 112: Negative or not required by law. The above report was generated using voice recognition software. It may contain grammatical, syntax or spelling errors. Electronically signed by: Pancho Alvarado M.D. 01/24/2024 3:06 PM Chest X-Ray 01/25/24 09:09 XR chest 1V portable HISTORY: 83 years-old Female dyspnea acute shortness of breath COMPARISON: 01/24/2024 TECHNIQUE: AP view of the chest FINDINGS: Cardiac silhouette is enlarged. Median sternotomy. Atherosclerosis of the aorta. Pulmonary vascular congestion. Small pleural effusions with bibasilar densities. No pneumothorax. Unchanged positioning of the left-sided PICC. Findings are overall similar to yesterday's study. IMPRESSION: 1. Cardiomegaly with stable appearance of the interstitial pulmonary edema. 2. Layering pleural effusions with bibasilar opacities are unchanged. 3. Unchanged positioning of the left-sided PICC. ACT 112: Negative or not required by law. The above report was generated using voice recognition software. It may contain grammatical, syntax or spelling errors. Electronically signed by: Pancho Alvarado M.D. 01/25/2024 12:36 PM Laboratory Results - last 48 hr 01/24/24 01/24/24 01/24/24 17:15 20:19 Unknown WBC RBC Hgb Hct MCV MCH MCHC RDW Std Deviation RDW Coeff of Kirsty Plt Count MPV Immature Gran % (Auto) Neut % (Auto) Lymph % (Auto) Yell % (Auto) Eos % (Auto) Baso % (Auto) Neut # (Auto) Lymph # (Auto) Yell # (Auto) Eos # (Auto) Baso # (Auto) Immature Gran # (Auto) Absolute Nucleated RBC Nucleated RBC % (auto) Polychromasia Ovalocytes Sodium Potassium Chloride Carbon Dioxide Anion Gap BUN Creatinine Est Cr Clr Drug Dosing Est GFR ( Amer) Est GFR (Non-Af Amer) BUN/Creatinine Ratio Glucose POC Glucose 163 H 150 H Calcium Phosphorus Magnesium Iron TIBC Unsaturated IBC Transferrin % Sat Ferritin Albumin Urine Color Yellow Urine Appearance Clear Urine pH 6.0 Ur Specific [place] 1.013 Urine Protein Trace H Urine Glucose (UA) Negative Urine Ketones Negative Urine Blood Negative Urine Nitrite Negative Urine Bilirubin Negative Urine Urobilinogen Negative Ur Leukocyte Esterase Trace H Urine WBC (Auto) 0-5 Urine RBC (Auto) 0-2 U Hyaline Cast (Auto) 3-5 H U Epithel Cells (Auto) 11-20 H Urine Bacteria (Auto) None Seen Ur Random Creatinine 85.0 Ur Random Sodium 46 01/25/24 01/25/24 01/25/24 06:25 08:07 12:10 WBC 5.11 RBC 2.30 L Hgb 7.6 L Hct 22.8 L MCV 99.1 MCH 33.0 MCHC 33.3 RDW Std Deviation 53.2 H RDW Coeff of Kirsty 14.9 H Plt Count 201 MPV 10.0 Immature Gran % (Auto) 0.8 Neut % (Auto) 69.5 Lymph % (Auto) 15.3 Yell % (Auto) 11.5 Eos % (Auto) 2.7 Baso % (Auto) 0.2 Neut # (Auto) 3.55 Lymph # (Auto) 0.78 L Yell # (Auto) 0.59 Eos # (Auto) 0.14 Baso # (Auto) 0.01 Immature Gran # (Auto) 0.04 Absolute Nucleated RBC Nucleated RBC % (auto) Polychromasia 1+ Ovalocytes 1+ Sodium 139 Potassium 4.0 Chloride 105 Carbon Dioxide 28 Anion Gap 6 BUN 53 H Creatinine 3.16 H D Est Cr Clr Drug Dosing 15.0 Est GFR ( Amer) 15.1 Est GFR (Non-Af Amer) 13.0 BUN/Creatinine Ratio 16.8 Glucose 108 H POC Glucose 129 H 123 H Calcium 9.9 Phosphorus 2.9 Magnesium 2.1 Iron 45 TIBC 199 L Unsaturated IBC 154 L Transferrin % Sat 23 Ferritin 77.1 Albumin 2.8 L Urine Color Urine Appearance Urine pH Ur Specific [place] Urine Protein Urine Glucose (UA) Urine Ketones Urine Blood Urine Nitrite Urine Bilirubin Urine Urobilinogen Ur Leukocyte Esterase Urine WBC (Auto) Urine RBC (Auto) U Hyaline Cast (Auto) U Epithel Cells (Auto) Urine Bacteria (Auto) Ur Random Creatinine Ur Random Sodium 01/25/24 01/25/24 01/26/24 17:04 20:52 06:05 WBC 4.55 L RBC 2.41 L Hgb 7.8 L Hct 24.3 L MCV 100.8 H MCH 32.4 MCHC 32.1 RDW Std Deviation 55.7 H RDW Coeff of Kirsty 15.0 H Plt Count 185 MPV 9.8 Immature Gran % (Auto) 0.4 Neut % (Auto) 71.3 Lymph % (Auto) 12.5 Yell % (Auto) 11.4 Eos % (Auto) 4.2 Baso % (Auto) 0.2 Neut # (Auto) 3.24 Lymph # (Auto) 0.57 L Yell # (Auto) 0.52 Eos # (Auto) 0.19 Baso # (Auto) 0.01 Immature Gran # (Auto) 0.02 Absolute Nucleated RBC 0.02 Nucleated RBC % (auto) 0.4 Polychromasia 1+ Ovalocytes 1+ Sodium 139 Potassium 3.7 Chloride 106 Carbon Dioxide 28 Anion Gap 5 BUN 48 H Creatinine 2.84 H D Est Cr Clr Drug Dosing 16.1 Est GFR ( Amer) 17.2 Est GFR (Non-Af Amer) 14.8 BUN/Creatinine Ratio 16.9 Glucose 77 POC Glucose 135 H 157 H Calcium 9.6 Phosphorus 2.7 Magnesium 2.0 Iron TIBC Unsaturated IBC Transferrin % Sat Ferritin Albumin 2.8 L Urine Color Urine Appearance Urine pH Ur Specific [place] Urine Protein Urine Glucose (UA) Urine Ketones Urine Blood Urine Nitrite Urine Bilirubin Urine Urobilinogen Ur Leukocyte Esterase Urine WBC (Auto) Urine RBC (Auto) U Hyaline Cast (Auto) U Epithel Cells (Auto) Urine Bacteria (Auto) Ur Random Creatinine Ur Random Sodium 01/26/24 01/26/24 07:55 11:50 WBC RBC Hgb Hct MCV MCH MCHC RDW Std Deviation RDW Coeff of Kirsty Plt Count MPV Immature Gran % (Auto) Neut % (Auto) Lymph % (Auto) Yell % (Auto) Eos % (Auto) Baso % (Auto) Neut # (Auto) Lymph # (Auto) Yell # (Auto) Eos # (Auto) Baso # (Auto) Immature Gran # (Auto) Absolute Nucleated RBC Nucleated RBC % (auto) Polychromasia Ovalocytes Sodium Potassium Chloride Carbon Dioxide Anion Gap BUN Creatinine Est Cr Clr Drug Dosing Est GFR ( Amer) Est GFR (Non-Af Amer) BUN/Creatinine Ratio Glucose POC Glucose 84 106 H Calcium Phosphorus Magnesium Iron TIBC Unsaturated IBC Transferrin % Sat Ferritin Albumin Urine Color Urine Appearance Urine pH Ur Specific [place] Urine Protein Urine Glucose (UA) Urine Ketones Urine Blood Urine Nitrite Urine Bilirubin Urine Urobilinogen Ur Leukocyte Esterase Urine WBC (Auto) Urine RBC (Auto) U Hyaline Cast (Auto) U Epithel Cells (Auto) Urine Bacteria (Auto) Ur Random Creatinine Ur Random Sodium Diagnostic Imagining Performed 01/23/24 19:04 CT abd pelvis wo con Stat Pending Results Patient Have Any Pending Studies at Discharge: No Discharge Instructions Given to Patient (Per Discharging Provider) DISCHARGE INSTRUCTION TO PATIENT/FAMILY: Follow-up with your primary care provider within 1 week regarding: Posthospital discharge, medication review, medication refills and follow-up on all your medical problems, LABS Please take all your discharge medications, discharge information and discharge instructions to all your doctors appointments. Avoid all NSAIDs including ibuprofen, Motrin, Advil, Aleve, naproxen, meloxicam, Toradol, diclofenac Labs through PCP in 1 week: CBC, CMP, MG Follow-up with your outpatient laboratory manager Dr. Butler within 1 week to monitor your kidney function Follow-up with your outpatient tabulating clerk Dr. Betancourt regarding heart failure, echo with new finding of pulmonary hypertension Total Time Total Time Spent Total Time Spent (In Minutes): 38 Coding Level of Care Code 20342 INP/OBS DISCH >30 MIN Diagnoses Acute kidney injury superimposed on CKD N17.9; N18.9 CKD (chronic kidney disease), stage IV N18.4 (HFpEF) heart failure with preserved ejection fraction I50.30 Brain TIA G45.9 Paroxysmal atrial fibrillation I48.0 Coronary artery disease involving [place] coronary artery of [place] heart without angina pectoris I25.10 Coronary Disease-Associated Artery/Lesion type: [place] artery [place] vs. transplanted heart: [place] heart Associated angina: without angina
[2024-01-26 12:32] VITALS: BP 175/71
[2024-01-27] MEDS ORDERED: ALENDRONATE SODIUM 70 MG TAB PO SCH (06:30)
== END 2024-01-26 13:24 | disposition home or self-care (01) ==
LOC: 2N 18:08 → ED 18:08 → SUATTDRO 20:57 → 2N 21:40

== ENCOUNTER 2024-01-31 12:34 | Inpatient (IN) ==
[2024-01-31 13:36] LABS: Basophils # (auto) 0.01 K/uL (0.00-0.20); Basophils % (auto) 0.2 %; Eosinophils # (auto) 0.09 K/uL (0.00-0.50); Eosinophils % (auto) 1.8 %; Hematocrit (blood only) 26.6 % (37.0-47.0); Hemoglobin 8.7 g/dl (12.0-16.0); Immature Granulocytes # (auto) 0.02 K/uL (0.01-0.20); Immature Granulocytes % (auto) 0.4 %; Lymphocytes # (auto) 0.46 K/uL (1.20-3.40); Mean Corpuscular Hgb Conc 32.7 g/dL (32.0-36.0); Mean Corpuscular Volume 100.8 fL (80.0-100.0); Monocytes # (auto) 0.53 K/uL (0.11-0.59); Monocytes % (auto) 10.4 %; Neutrophils # (auto) 3.99 K/uL (1.40-6.50); Neutrophils % (auto) 78.2 %; Platelet Count 173 K/uL (130-400); RDW Coefficient of Variation 16.5 % (11.5-14.5); RDW Standard Deviation 57.5 fL (36.4-46.3); Red Blood Count 2.64 M/uL (4.20-5.40)
--- NOTE | 2024-01-31 13:46 | XRay Report ---
XR chest 1V not portable CLINICAL HISTORY: Chest pain, nonspecific COMPARISON STUDY: Chest radiograph January 25, 2024. Chest CT January 12, 2022. FINDINGS: Median sternotomy wires and mediastinal surgical clips. There is no pneumothorax. Small kiana ateral pleural effusions with mild bibasilar opacities are again noted. Cardiomegaly is unchanged. Pu lmonary edema has slightly improved. IMPRESSION: 1. Cardiomegaly. Interval improvement in pulmonary edema. 2. Persistent small bilateral pleural effusions with bibasilar opacities which favor atelectasis. ACT 112: Negative or not required by law. Electronically signed by: Jose Wong M.D. 01/31/2024 1:45 PM
[2024-01-31 14:00] LABS: Alanine Aminotransferase 8 U/L (7-52); Albumin Globulin Ratio 1.2 (0.9-2); Albumin Level 3.4 gm/dl (3.4-5.0); Alkaline Phosphatase 60 U/L (34-104); Anion Gap 8 (3-11); Aspartate Aminotransferase 13 U/L (13-39); BUN Creatinine Ratio 13.4 (10-20); Bilirubin,Total 2.2 mg/dl (0.2-1.0); Blood Urea Nitrogen 39 mg/dl (6-23); Calcium 10.3 mg/dl (8.6-10.3); Carbon Dioxide 28 mmol/L (21-32); Chloride 105 mmol/L (98-107); Est GFR (African American) 16.7 ml/min; Est GFR (Non-African American) 14.4 ml/min; Globulin 2.8 gm/dl (2.5-4.0); Glucose 111 mg/dl (70-99(Fasting)); Potassium 3.6 mmol/L (3.5-5.1); Sodium 141 mmol/L (136-145); Total Protein 6.2 gm/dl (6.0-8.3)
[2024-01-31 14:03] LABS: Influenza A virus by PCR Negative (Neg); Influenza B virus by PCR Negative (Neg); RSV by PCR Negative (Neg); SARS CoV2 RNA(COVID-19) Ceph NEGATIVE (Negative)
[2024-01-31 14:05] LABS: INR 1.1 (0.9-1.1); Partial Thromboplastin Time 26 Seconds (21-31); Prothrombin Time 11.4 Seconds (9.0-12.0)
[2024-01-31 18:04] LABS: Adenovirus F 40/41 PCR Not Detected (NotDetected); Astrovirus PCR Not Detected (NotDetected); Campylobacter PCR Not Detected (NotDetected); Cryptosporidium PCR Not Detected (NotDetected); Cyclospora cayetanensis PCR Not Detected (NotDetected); Entamoeba histolytica PCR Not Detected (NotDetected); Enteroaggregative E.coli(EAEC) Not Detected (NotDetected); Enteropathogenic E.coli (EPEC) Not Detected (NotDetected); Enterotoxigenic E.coli (ETEC) Not Detected (NotDetected); Giardia lamblia PCR Not Detected (NotDetected); Norovirus GI/GII PCR Not Detected (NotDetected); Plesiomonas shigelloides PCR Not Detected (NotDetected); Rotavirus A PCR Not Detected (NotDetected); Salmonella PCR Not Detected (NotDetected); Sapovirus PCR Not Detected (NotDetected); Shiga-like Toxin E.coli (STEC) Not Detected (NotDetected); Shigella/Enteroinvasive E.coli Not Detected (NotDetected); Vibrio cholerae PCR Not Detected (NotDetected); Vibrio species PCR Not Detected (NotDetected); Yersinia enterocolitica PCR Not Detected (NotDetected)
--- NOTE | 2024-01-31 19:00 | Emergency Department Note ---
Impression & Plan Shortness of breath, Adult failure to thrive ED Provider Note NAME: REBECCA BARKSDALE AGE: 83 SEX: F : 1940 ARRIVES VIA: Walk-In INFORMANT: Patient, ED PROVIDER(S): Jazmine Whatley MD CHIEF COMPLAINT: Shortness of breath, diarrhea HPI: This is a 83-year-old female presented for shortness of breath, diarrhea and loss of appetite. Patient with her daughter who states patient is not had appetite for months. She notes that when she does eat "it just runs through me ". She notes she felt nauseous and gagging when she takes medicine or food. Otherwise she previous had issue with kidney function from dehydration. She notes that currently she has had shortness of breath over the past few days. Her daughter takes her measurements including weight has not fluctuated. Today she did give an extra dose of diuretic. This did not improve patient's symptoms of shortness of breath. She feels weaker than usual and having difficulty doing activities at home because she feels weak. Scheduled for endoscopy in March. ROS: See above HPI for pertinent positives & negatives. A total of 10 systems reviewed and were otherwise negative. PAST MEDICAL HISTORY: See Below PAST SURGICAL HISTORY: See Below FAMILY HISTORY: See Below SOCIAL HISTORY: See Below HOME MEDICATIONS: See Below ALLERGIES: See Below VITALS: See Below PHYSICAL EXAMINATION: General: resting comfortably in no acute distress, chronically ill-appearing Head: Normocephalic and atraumatic Eyes: Normal inspection, extraocular muscles intact Ear, nose, throat: Normal external exam Neck: Normal range of motion Respiratory: lungs clear to auscultation bilaterally Cardiovascular: Regular rate/rhythm, no murmur GI: soft, nontender, no guarding or rebound Extremities: nontender, moves all extremities Neuro: The patient awake and alert, appropriately conversive, no focal deficits, symmetric faces Skin: Warm, dry, and intact MEDICAL DECISION MAKING: This is an 83-year-old female presented for shortness of breath, diarrhea and loss of appetite. Patient has had persistent loss of appetite for months now. Scheduled for endoscopy in March. Family is concerned that patient is not eating and getting weaker. Patient not short of breath. She is borderline hypoxia between 89 and 93%. She has clear lung sounds. She has improved x-ray as below. -Chest Xray independently interpreted by me showing cardiomegaly, slight pulmonary edema, no pneumothorax, focal opacity, or pleural effusions. -Blood was reviewed showing improving hemoglobin to 8.7, creatinine stable at 2.91. COVID/flu negative. Otherwise chronic findings are noted. -Due to patient's persistent weakness, loss of appetite, shortness of breath and borderline hypoxia, will admit for further evaluation. Differential diagnosis: Pulmonary edema, failure to thrive, gastritis, pneumonia, ACS, PE, renal failure ER treatment provided: See below Independent History obtained from: Daughter Diagnostics interpreted by me: ECG: ECG independently interpreted by me with atrial fibrillation, left axis deviation, rate of 70, left bundle branch block, no ST segment elevations consistent with STEMI criteria] Cardiac Monitoring: An order was placed for continuous cardiac monitoring. The monitor shows a rate of 64 with sinus rhythm. Laboratory studies: As stated above and show below. Imaging studies: See below. Past Med/Surg History Problem List Adult failure to thrive (Acute) Shortness of breath (Acute) Type 2 diabetes mellitus Chronic kidney disease Asymptomatic bradycardia Atrial fibrillation ELADIA (acute kidney injury) (Acute) Pleural effusion UTI (urinary tract infection) Acute kidney injury superimposed on CKD (Acute) Anorexia Anemia of chronic disease Hx of breast cancer right breast (Jun 2018). surgical intervention + radiation therapy Colon cancer Paroxysmal atrial fibrillation Acute kidney injury superimposed on chronic kidney disease Controlled diabetes mellitus with neurologic complication, with long-term current use of insulin S/P carpal tunnel release Left wrist- 10/24/[address] Musa [facility] Generalized weakness Acute heart failure with preserved ejection fraction Hypoxia (Acute) Congestive heart failure (Acute) Diarrhea Hypoxia Elevated troponin Fungal infection of skin of abdomen Swelling of both lower extremities Volume overload Carpal tunnel syndrome, left Paresthesia of right lower extremity Neuroforaminal stenosis of lumbosacral spine Lumbosacral spondylosis Paresthesia (Acute) Brain TIA (Acute) (HFpEF) heart failure with preserved ejection fraction Acute diastolic CHF (congestive heart failure) (Acute) DVT (deep venous thrombosis) Right upper leg DVT -- March 2020 -- placed on eliquis.-NO ISSUES SINCE Recent u/s from 07/07/20= shows continued evidence of right common femoral DVT. Right knee DJD PVD (peripheral vascular disease) on Pletal Malignant neoplasm of upper-outer quadrant of right breast in female, estrogen receptor positive (Chronic) Vitamin D deficiency (Chronic) Obesity (BMI 35.0-39.9 without comorbidity) (Acute) Dyslipidemia (high LDL; low HDL) (Acute) Dysesthesia (Acute) History of total left knee replacement Thickened endometrium S/P right colectomy Status post hysteroscopy CKD (chronic kidney disease), stage IV Hyperparathyroidism HOPPER (dyspnea on exertion) Osteoporosis Chronic anticoagulation History of left knee replacement History of colon cancer 2020- adenocarcinoma Edema (Acute) S/P laparoscopic colectomy (08/26/20) Laparoscopic Extended Hemicolectomy, Extensive enterolysis - Sohail Quiroga DO History of coronary artery bypass graft 3 [place] [place] Chronic kidney disease Urinary retention Type 2 diabetes mellitus with neurologic complication, with long-term current use of insulin Hypertension CAD (coronary artery disease) s/p 3 vessel CABG 2006 New onset a-fib Small bowel obstruction 2020 > after colon surgery Ileus Encounter for pre-operative examination Anemia Mild- has been evaluated by heme/onc for recent dx colon cancer Lumbar spinal stenosis Peripheral vascular disease Hx of acute respiratory failure WITH GB SURG 04/21/09 [facility] POST OP RESPIRATORY FAILURE-HAD TO BE VENTILATED,EXTUBATED NEXT DAY-PER PT SLOW TO WAKE UP IN GENERAL Right breast partial mastectomy 08/29/18 under [place] with LMA #4 x 3 attempts- atraumatic with good seal- no other issues noted Osteoarthritis Venous stasis dermatitis LLE Chronic kidney disease STAGE 3-FOLLOWS WITH DR LIND Last seen by nephro 07/20/20- kidney function stable at that time Hyperlipidemia Surgical History Hx of colonoscopy Hx of lymph node excision right axillary Status post dilation and curettage 08/26/20 Dr. Cathy Calderon- Hysteroscopy, Dilation and Curettage, Possible Polypectomy History of esophagogastroduodenoscopy (EGD) S/P epidural steroid injection History of partial mastectomy of right breast no chemo, just radiation Status post trigger finger release X2 History of total knee replacement LEFT 2018 History of adverse response to anesthesia SLOW TO WAKE. PT HAD RESP FAILURE S/P KYLAH IN 2008 History of Moh's micrographic surgery for skin cancer S/P tendon repair R ARM History of cholecystectomy History of dilatation and curettage History of bilateral tubal ligation History of cataract surgery BL History of cardiac cath 2006 NO STENTS-[facility] Family History Mother , age 38 heart disease due to rheumatic fever No problems noted. Father , age 73 heart disease No problems noted. Sister No problems noted. Sister No problems noted. Sister No problems noted. Sister No problems noted. Sister No problems noted. 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 Beliefs That Will Affect Care: None marital status: / Current Living Situation: Family Current Living Situation Comment: staying with daughter at home current occupational status: retired How many Children do You have: 2 Other Information That Helps Us Care for You: No Feels Safe at Home: Yes Safety Concerns: Feels Safe At This Time Childhood Exposure to Second-Hand Smoke: No Diet: low salt and regular caffeine: No during the past year weight has: remained stable Dental Care, Regularly: No Physical Activity Frequency: 3-4 Times per Week Seatbelt Use: always Sunscreen Use: Yes Do you think of yourself as: straight/heterosexual Gender Identity: Female Assistive Devices: Cane, Denture - Upper, Denture - Lower and Glasses Allergies Allergies Allergy/AdvReac Type Severity Reaction Status Date / Time spironolactone AdvReac Severe Hyperkalemi Verified 01/31/24 16:08 a sulfamethoxazole AdvReac Severe SEVERE Verified 01/31/24 16:08 [From Bactrim] VOMITING trimethoprim [From Bactrim] AdvReac Severe SEVERE Verified 01/31/24 16:08 VOMITING JESSICA Inhibitors AdvReac Intermediate ARF Verified 01/31/24 16:08 diclofenac AdvReac Intermediate ankle Verified 01/31/24 16:08 swelling iron AdvReac Intermediate nausea/ Verified 01/31/24 16:08 VOMITING Home Meds Home Medications Medication Instructions Recorded Confirmed cyanocobalamin (vitamin B-12) 1,000 mcg PO QAM 12/28/17 01/31/24 1,000 mcg capsule magnesium oxide 400 mg PO BID 12/28/17 01/31/24 omega 6-kie-yae-fish oil 1,000 mg 1 cap PO QPM 12/28/17 01/31/24 (120 mg-180 mg) capsule (Fish Oil) pen needle, diabetic 31 gauge x #30 ea 11/22/18 10/25/23/16" (BD Ultra-Fine Short Pen Needle) epoetin jase 2,000 unit/mL 0 unit subcut Q14D 12/02/20 01/31/24 injection solution (Procrit) hydralazine 100 mg tablet 0 mg PO TID 01/17/24 01/31/24 insulin glargine 100 unit/mL (3 See Rx Instructions .Route .COMPLEX 01/24/24 01/31/24 mL) subcutaneous pen (Lantus Solostar U-100 Insulin) Previous Rx's Medication Instructions Recorded apixaban 2.5 mg tablet (Eliquis) 2.5 mg PO BID #180 tabs 01/29/23 atorvastatin 40 mg tablet 40 mg PO HS #90 tabs 05/23/23 cilostazol 100 mg tablet 100 mg PO BID #180 tabs 06/05/23 metoprolol succinate 200 mg 200 mg PO BID #180 tabs 06/13/23 tablet,extended release 24 hr calcitriol 0.25 mcg capsule 0.25 mcg PO DAILY #90 caps 09/10/23 (Rocaltrol) insulin aspart U-100 100 unit/mL See Rx Instructions subcut TID #60 10/30/23 (3 mL) subcutaneous pen (Novolog mL FlexPen U-100 Insulin aspart) isosorbide mononitrate 30 mg 30 mg PO QAM #90 tabs 12/19/23 tablet,extended release 24 hr isosorbide mononitrate 60 mg 60 mg PO QAM #90 tabs 12/19/23 tablet,extended release 24 hr alendronate 70 mg tablet (Fosamax) 70 mg PO WK #12 tabs 12/25/23 bumetanide 0.5 mg tablet 0.5 mg PO DAILY #120 tabs 01/26/24 Results & Data (ED) Vital Signs Vital Signs - 24 hr 01/31/24 12:46 01/31/24 16:26 01/31/24 16:30 Temperature 36.5 C Temperature Source Temporal Artery Scan Pulse Rate 78 Pulse Rate [Apical] Pulse Rate from SpO2 Sensor Pulse Rhythm Regular Pulse Rhythm [Apical] Pulse Strength Normal Pulse Strength [Apical] Respiratory Rate 22 Respiratory Effort / Characteristics Non-Labored Respiratory Depth Normal Respiratory Pattern Blood Pressure 149/68 H 168/61 H Blood Pressure [Left Arm] Blood Pressure Mean 95 117 Blood Pressure Mean [Left Arm] Blood Pressure Position Sitting Blood Pressure Position [Left Arm] Pulse Oximetry 92 92 Oxygen Delivery Method Room Air Room Air Sepsis Recent Fever Within 48 Hours No Sepsis New/Unexplained Change in Mental Status No Sepsis Action Taken by Nursing No Action Required 01/31/24 16:33 01/31/24 16:36 01/31/24 16:54 Temperature Temperature Source Pulse Rate 55 L 51 L 56 L Pulse Rate [Apical] Pulse Rate from SpO2 Sensor 56 L 60 Pulse Rhythm Pulse Rhythm [Apical] Pulse Strength Pulse Strength [Apical] Respiratory Rate 26 H 21 Respiratory Effort / Characteristics Respiratory Depth Respiratory Pattern Blood Pressure Blood Pressure [Left Arm] Blood Pressure Mean Blood Pressure Mean [Left Arm] Blood Pressure Position Blood Pressure Position [Left Arm] Pulse Oximetry 93 92 Oxygen Delivery Method Sepsis Recent Fever Within 48 Hours Sepsis New/Unexplained Change in Mental Status Sepsis Action Taken by Nursing 01/31/24 17:00 01/31/24 17:03 01/31/24 17:06 Temperature Temperature Source Pulse Rate 63 56 L Pulse Rate [Apical] 60 Pulse Rate from SpO2 Sensor 62 57 L Pulse Rhythm Pulse Rhythm [Apical] Regular Pulse Strength Pulse Strength [Apical] Normal Respiratory Rate 25 H 24 22 Respiratory Effort / Characteristics Non-Labored Spontaneous Respiratory Depth Normal Respiratory Pattern Regular Blood Pressure 170/65 H Blood Pressure [Left Arm] 170/65 H Blood Pressure Mean 100 Blood Pressure Mean [Left Arm] 100 Blood Pressure Position Blood Pressure Position [Left Arm] Lying Pulse Oximetry 91 92 90 Oxygen Delivery Method Room Air Sepsis Recent Fever Within 48 Hours Sepsis New/Unexplained Change in Mental Status Sepsis Action Taken by Nursing 01/31/24 17:30 01/31/24 17:42 01/31/24 17:54 Temperature Temperature Source Pulse Rate 65 60 49 L Pulse Rate [Apical] Pulse Rate from SpO2 Sensor 63 62 52 L Pulse Rhythm Pulse Rhythm [Apical] Pulse Strength Pulse Strength [Apical] Respiratory Rate 26 H 30 H 21 Respiratory Effort / Characteristics Respiratory Depth Respiratory Pattern Blood Pressure 96/63 L 169/64 H Blood Pressure [Left Arm] Blood Pressure Mean 74 99 Blood Pressure Mean [Left Arm] Blood Pressure Position Blood Pressure Position [Left Arm] Pulse Oximetry 90 93 92 Oxygen Delivery Method Room Air Sepsis Recent Fever Within 48 Hours Sepsis New/Unexplained Change in Mental Status Sepsis Action Taken by Nursing 01/31/24 18:03 01/31/24 18:30 01/31/24 19:00 Temperature Temperature Source Pulse Rate 71 35 L Pulse Rate [Apical] 45 L Pulse Rate from SpO2 Sensor 71 44 L Pulse Rhythm Pulse Rhythm [Apical] Pulse Strength Pulse Strength [Apical] Respiratory Rate 26 H 18 20 Respiratory Effort / Characteristics Non-Labored Spontaneous Respiratory Depth Normal Respiratory Pattern Regular Blood Pressure 173/59 H 140/74 Blood Pressure [Left Arm] 167/75 H Blood Pressure Mean 97 111 Blood Pressure Mean [Left Arm] 105 Blood Pressure Position Blood Pressure Position [Left Arm] Pulse Oximetry 92 94 92 Oxygen Delivery Method Room Air Room Air Room Air Sepsis Recent Fever Within 48 Hours Sepsis New/Unexplained Change in Mental Status Sepsis Action Taken by Nursing 01/31/24 19:00 01/31/24 19:30 01/31/24 19:30 Temperature Temperature Source Pulse Rate 49 L 54 L Pulse Rate [Apical] 59 L Pulse Rate from SpO2 Sensor 54 L 59 L Pulse Rhythm Pulse Rhythm [Apical] Pulse Strength Pulse Strength [Apical] Respiratory Rate 27 H 22 20 Respiratory Effort / Characteristics Non-Labored Spontaneous Respiratory Depth Normal Respiratory Pattern Regular Blood Pressure 167/75 H 159/96 H Blood Pressure [Left Arm] 159/96 H Blood Pressure Mean 105 130 Blood Pressure Mean [Left Arm] 117 Blood Pressure Position Blood Pressure Position [Left Arm] Pulse Oximetry 90 94 94 Oxygen Delivery Method Room Air Room Air Sepsis Recent Fever Within 48 Hours Sepsis New/Unexplained Change in Mental Status Sepsis Action Taken by Nursing 01/31/24 19:34 01/31/24 20:00 Temperature Temperature Source Pulse Rate 65 Pulse Rate [Apical] 27 L Pulse Rate from SpO2 Sensor 61 Pulse Rhythm Pulse Rhythm [Apical] Pulse Strength Pulse Strength [Apical] Respiratory Rate 18 19 Respiratory Effort / Characteristics Non-Labored Spontaneous Respiratory Depth Normal Respiratory Pattern Regular Blood Pressure Blood Pressure [Left Arm] 159/96 H Blood Pressure Mean Blood Pressure Mean [Left Arm] 117 Blood Pressure Position Blood Pressure Position [Left Arm] Pulse Oximetry 94 94 Oxygen Delivery Method Room Air Room Air Sepsis Recent Fever Within 48 Hours Sepsis New/Unexplained Change in Mental Status Sepsis Action Taken by Nursing Laboratory Data 01/31/24 13:18 01/31/24 13:18 Lab Results 01/31/24 01/31/24 01/31/24 Range/Units 13:01 13:18 16:00 WBC 5.10 (4.8-10.8) K/ul RBC 2.64 L (4.20-5.40) M/uL Hgb 8.7 L (12.0-16.0) g/dl Hct 26.6 L (37.0-47.0) % MCV 100.8 H (80.0-100.0) fL MCH 33.0 (25.0-34.0) pg MCHC 32.7 (32.0-36.0) g/dL RDW Std Deviation 57.5 H (36.4-46.3) fL RDW Coeff of Kirsty 16.5 H (11.5-14.5) % Plt Count 173 (130-400) K/uL MPV 10.0 (9.4-12.4) fL Immature Gran % (Auto) 0.4 % Neut % (Auto) 78.2 % Lymph % (Auto) 9.0 % Lyon % (Auto) 10.4 % Eos % (Auto) 1.8 % Baso % (Auto) 0.2 % Neut # (Auto) 3.99 (1.40-6.50) K/uL Lymph # (Auto) 0.46 L (1.20-3.40) K/uL Lyon # (Auto) 0.53 (0.11-0.59) K/uL Eos # (Auto) 0.09 (0.00-0.50) K/uL Baso # (Auto) 0.01 (0.00-0.20) K/uL Immature Gran # (Auto) 0.02 (0.01-0.20) K/uL PT 11.4 (9.0-12.0) Seconds INR 1.1 (0.9-1.1) APTT 26 (21-31) Seconds PTT Ratio 1.0 Sodium 141 (136-145) mmol/L Potassium 3.6 (3.5-5.1) mmol/L Chloride 105 (98-107) mmol/L Carbon Dioxide 28 (21-32) mmol/L Anion Gap 8 (3-11) BUN 39 H (6-23) mg/dl Creatinine 2.91 H (0.6-1.2) mg/dl Est Cr Clr Drug Dosing Not Reportable Est GFR ( Amer) 16.7 ml/min Est GFR (Non-Af Amer) 14.4 ml/min BUN/Creatinine Ratio 13.4 (10-20) Glucose 111 H (70-99(Fasting)) mg/dl Calcium 10.3 (8.6-10.3) mg/dl Magnesium 2.3 (1.7-2.4) mg/dl Total Bilirubin 2.2 H (0.2-1.0) mg/dl AST 13 (13-39) U/L ALT 8 (7-52) U/L Alkaline Phosphatase 60 (34-104) U/L Troponin I High Sens 16.0 H (0-14) pg/ml Total Protein 6.2 (6.0-8.3) gm/dl Albumin 3.4 (3.4-5.0) gm/dl Globulin 2.8 (2.5-4.0) gm/dl Albumin/Globulin Ratio 1.2 (0.9-2) Stl C. cayetanensis PCR Not Detected (NotDetected) Stool Rotavirus A PCR Not Detected (NotDetected) Stl Adenov F 40/41 PCR Not Detected (NotDetected) Stool Astrovirus (PCR) Not Detected (NotDetected) Stool Campylobacter PCR Not Detected (NotDetected) Stl C. diff Tox B Gene Negative Cdiff Gene (Neg) Stool Cryptosporidium PCR Not Detected (NotDetected) Stl E.coli Shiga Tox PCR Not Detected (NotDetected) Stl Enterotoxigenic E PCR Not Detected (NotDetected) Stool EPEC (PCR) Not Detected (NotDetected) Stool EAEC (PCR) Not Detected (NotDetected) Stl E. histolytica PCR Not Detected (NotDetected) Stool Giardia Lamblia PCR Not Detected (NotDetected) Stool Salmonella PCR Not Detected (NotDetected) Stool Sapovirus (PCR) Not Detected (NotDetected) Stl P. shigelloides PCR Not Detected (NotDetected) Stl Shigella/EIEC PCR Not Detected (NotDetected) St Y.enterocolitica PCR Not Detected (NotDetected) Stool Vibrio (PCR) Not Detected (NotDetected) Stl Vibrio cholerae PCR Not Detected (NotDetected) Stl Norovirus GI/GII PCR Not Detected (NotDetected) SARS-CoV-2 (PCR) NEGATIVE (Negative) Influenza Type A (PCR) Negative (Neg) Influenza Type B (PCR) Negative (Neg) RSV (RT-PCR) Negative (Neg) Administered Medications Insulin Aspart (Insulin Aspart Per Unit Charge) 0 units SC ACHS TRISH Stop: 03/01/24 22:13 Last Admin: 01/31/24 22:31 Dose: Not Given Documented By: DEREK Miscellaneous (Patient's Height &/Or Weight Needed) 1 each N/A Q2H TRISH Stop: 03/01/24 22:29 Last Admin: 01/31/24 22:37 Dose: 1 each Documented By: KDChristel Discontinued Medications Potassium Chloride (Potassium Chloride Crtab 20 Meq Tabcr) 20 meq PO NOW STA Stop: 01/31/24 21:21 Last Admin: 01/31/24 22:24 Dose: 20 meq Documented By: DEREK Imaging Data Radiologist's Impression: Chest X-Ray 01/31/24 12:48 XR chest 1V not portable CLINICAL HISTORY: Chest pain, nonspecific COMPARISON STUDY: Chest radiograph January 25, 2024. Chest CT January 12, 2022. FINDINGS: Median sternotomy wires and mediastinal surgical clips. There is no pneumothorax. Small bilateral pleural effusions with mild bibasilar opacities are again noted. Cardiomegaly is unchanged. Pulmonary edema has slightly improved. IMPRESSION: 1. Cardiomegaly. Interval improvement in pulmonary edema. 2. Persistent small bilateral pleural effusions with bibasilar opacities which favor atelectasis. ACT 112: Negative or not required by law. Electronically signed by: Jose Wong M.D. 01/31/2024 1:45 PM Discharge Plan Visit Data Chief Complaint: Shortness of Breath/Dyspnea Stated Complaint: SOB, CAN'T EAT, DIARRHEA ED Provider: Jazmine Whatley Discharge Problem: Shortness of breath, Adult failure to thrive Patient Disposition: Admitted As Inpatient Discharge Instructions Interventions: ED Discharge Assessment Last Done: 01/31/24 21:55
--- NOTE | 2024-01-31 19:16 | History & Physical Report ---
Date of Service January 31, 2024 Assessment & Plan (1) Asymptomatic bradycardia: Plan: Alerted that patient had an arrhythmia on telemetry; asymptomatic Patient has been dropping to low of 27 bpm in the ED Ordered external pacer at bedside Hold metoprolol for now Cardiology consulted for potential tachy-bolivar syndrome assoc with beta-bijal use A.m. CBC, BMP, mag (2) Anorexia: Plan: Ongoing loss of appetite Dietitian consulted Speech therapy consulted as patient reports she has been having trouble with food recently/choking (3) Anemia of chronic disease: Plan: Chronic; Hgb 8.7 on arrival No signs of active bleeding from a exam Trend CBC (4) Congestive heart failure: Plan: Daily weights Strict I&O monitoring Heart healthy, low-sodium diet Continue Bumex 0.5 mg daily (5) Chronic kidney disease: Plan: BUN 39, creatinine 2.91 (around baseline), EGFR at 14.4 Avoid nephrotoxic agents for possible Trend BMP (6) Type 2 diabetes mellitus: Plan: Last A1c at 5.5% on 01/18/2024 Glucose 111 on admission Patient has been weaning down on her Lantus; per last PCP note on 01/28, recommended continuing 10u SQ HS Will dose reduced to 5u HS while inpatient SSI; with target BSG range 110-140mg/dL, CF 50, carb ratio 15 T2DM diet BSG ACHS Adjust regimen as needed (7) Diarrhea: Plan: Negative C. difficile/PCR stool on arrival Supportive care (8) Colon cancer: Plan: Follows with CCP Patient has upcoming Procrit appointment on Monday 02/05 (9) Atrial fibrillation: Plan: Continue Eliquis Plan Disposition: Admit to PCU telemetry Full code T2DM, heart healthy, low-sodium diet, easy to chew (aspiration precautions) VTE PPx: Eliquis History of Present Illness Chief Complaint: SOB/dyspnea Primary Care Provider: MATT Pelletier is an 83-year-old female with PMH of HFpEF, DVT, breast cancer, osteoporosis, colon cancer, CABG, paroxysmal atrial fibrillation (on Eliquis), and anemia of chronic disease. She presented on 01/30 for worsening SOB and diarrhea over the past week. While family is not at bedside at time of admission, patient is able to provide history. She reports she has been having worsening SOB both at rest and with exertion over the last few days. The shortness of breath at rest is new for her. No orthopnea. However, she does endorse conversational dyspnea, and reports that she "runs out of breath just talking". No sick contacts. No supplemental oxygen at baseline. No CPAP. No history of asthma or COPD. Patient denies smoking, tobacco use, recent alcohol use. Patient took her regular morning medications today. She reports that her Bumex dosage was changed upon recent hospital discharge (was taking 2 tablets/day, but was changed to 1 tablet/day). Patient knows what she takes on daily basis, but does not live with her daughter (Elena) who helps manage her medications at home. Additionally, patient has had diarrhea for the past 2 weeks. She denies bloody diarrhea. Liquidy in consistency. While she has not been on an extended course of antibiotics, she does note she had 1 dose of antibiotics during her last admission for presumed UTI. Patient reports that she has not been eating well over the past few months. She reports that whenever she eats it feels like food is going to "choke her". She does not have problems swallowing fluids, but does have a hard time swallowing her pills. All she has loss of appetite, she does watch her salt intake and reports no change in weight recently. She weighs herself daily. No increased swelling in her legs. ED course: ROS: Patient endorses fatigue, SOB at rest (new for her), HOPPER, conversational dyspnea, dry cough, and liquidy diarrhea (x 2 weeks). Patient denies fever, chills, night-sweats, dizziness/lightheadedness, headaches, chest pain, chest palpitations, pleuritic CP, orthopnea, hemoptysis, abdominal pain, N/V, blood in stool, burning with urination, dysuria, or leg swelling. Allergies Allergy/AdvReac Type Severity Reaction Status Date / Time spironolactone AdvReac Severe Hyperkalemi Verified 01/31/24 16:08 a sulfamethoxazole AdvReac Severe SEVERE Verified 01/31/24 16:08 [From Bactrim] VOMITING trimethoprim [From Bactrim] AdvReac Severe SEVERE Verified 01/31/24 16:08 VOMITING JESSICA Inhibitors AdvReac Intermediate ARF Verified 01/31/24 16:08 diclofenac AdvReac Intermediate ankle Verified 01/31/24 16:08 swelling iron AdvReac Intermediate nausea/ Verified 01/31/24 16:08 VOMITING Home Medications Medication Instructions Recorded Confirmed Type cyanocobalamin (vitamin B-12) 1,000 mcg PO QAM 12/28/17 01/31/24 History 1,000 mcg capsule magnesium oxide 400 mg PO BID 12/28/17 01/31/24 History omega 3-ite-mph-fish oil 1,000 mg 1 cap PO QPM 12/28/17 01/31/24 History (120 mg-180 mg) capsule (Fish Oil) pen needle, diabetic 31 gauge x #30 ea 11/22/18 10/25/23 History 09/19" (BD Ultra-Fine Short Pen Needle) epoetin jase 2,000 unit/mL 0 unit subcut Q14D 12/02/20 01/31/24 History injection solution (Procrit) apixaban 2.5 mg tablet (Eliquis) 2.5 mg PO BID #180 tabs 01/29/23 01/31/24 Rx atorvastatin 40 mg tablet 40 mg PO HS #90 tabs 05/23/23 01/31/24 Rx cilostazol 100 mg tablet 100 mg PO BID #180 tabs 06/05/23 01/31/24 Rx metoprolol succinate 200 mg 200 mg PO BID #180 tabs 06/13/23 01/31/24 Rx tablet,extended release 24 hr calcitriol 0.25 mcg capsule 0.25 mcg PO DAILY #90 caps 09/10/23 01/31/24 Rx (Rocaltrol) insulin aspart U-100 100 unit/mL See Rx Instructions subcut TID #60 10/30/23 01/31/24 Rx (3 mL) subcutaneous pen (Novolog mL FlexPen U-100 Insulin aspart) isosorbide mononitrate 30 mg 30 mg PO QAM #90 tabs 12/19/23 01/31/24 Rx tablet,extended release 24 hr isosorbide mononitrate 60 mg 60 mg PO QAM #90 tabs 12/19/23 01/31/24 Rx tablet,extended release 24 hr alendronate 70 mg tablet (Fosamax) 70 mg PO WK #12 tabs 12/25/23 01/31/24 Rx hydralazine 100 mg tablet 0 mg PO TID 01/17/24 01/31/24 History insulin glargine 100 unit/mL (3 See Rx Instructions .Route .COMPLEX 01/24/24 01/31/24 History mL) subcutaneous pen (Lantus Solostar U-100 Insulin) bumetanide 0.5 mg tablet 0.5 mg PO DAILY #120 tabs 01/26/24 01/31/24 Rx Past Med/Surg History Problem List Adult failure to thrive (Acute) Shortness of breath (Acute) Type 2 diabetes mellitus Chronic kidney disease Asymptomatic bradycardia Atrial fibrillation ELADIA (acute kidney injury) (Acute) Pleural effusion UTI (urinary tract infection) Acute kidney injury superimposed on CKD (Acute) Anorexia Anemia of chronic disease Hx of breast cancer right breast (Jun 2018). surgical intervention + radiation therapy Colon cancer Paroxysmal atrial fibrillation Acute kidney injury superimposed on chronic kidney disease Controlled diabetes mellitus with neurologic complication, with long-term current use of insulin S/P carpal tunnel release Left wrist- 10/24/[address] Lencho FRAZIER Generalized weakness Acute heart failure with preserved ejection fraction Hypoxia (Acute) Congestive heart failure (Acute) Diarrhea Hypoxia Elevated troponin Fungal infection of skin of abdomen Swelling of both lower extremities Volume overload Carpal tunnel syndrome, left Paresthesia of right lower extremity Neuroforaminal stenosis of lumbosacral spine Lumbosacral spondylosis Paresthesia (Acute) Brain TIA (Acute) (HFpEF) heart failure with preserved ejection fraction Acute diastolic CHF (congestive heart failure) (Acute) DVT (deep venous thrombosis) Right upper leg DVT -- March 2020 -- placed on eliquis.-NO ISSUES SINCE Recent u/s from 07/07/20= shows continued evidence of right common femoral DVT. Right knee DJD PVD (peripheral vascular disease) on Pletal Malignant neoplasm of upper-outer quadrant of right breast in female, estrogen receptor positive (Chronic) Vitamin D deficiency (Chronic) Obesity (BMI 35.0-39.9 without comorbidity) (Acute) Dyslipidemia (high LDL; low HDL) (Acute) Dysesthesia (Acute) History of total left knee replacement Thickened endometrium S/P right colectomy Status post hysteroscopy CKD (chronic kidney disease), stage IV Hyperparathyroidism HOPPER (dyspnea on exertion) Osteoporosis Chronic anticoagulation History of left knee replacement History of colon cancer 2020- adenocarcinoma Edema (Acute) S/P laparoscopic colectomy (08/26/20) Laparoscopic Extended Hemicolectomy, Extensive enterolysis - Sohail Quiroga, History of coronary artery bypass graft 3 [facility] 2006[place] [place] Medical History Chronic kidney disease Urinary retention Type 2 diabetes mellitus with neurologic complication, with long-term current use of insulin Hypertension CAD (coronary artery disease) s/p 3 vessel CABG 2006 New onset a-fib Small bowel obstruction 2020 > after colon surgery Ileus Encounter for pre-operative examination Anemia Mild- has been evaluated by heme/onc for recent dx colon cancer Lumbar spinal stenosis Peripheral vascular disease Hx of acute respiratory failure WITH GB SURG 04/21/09 [facility] [place] POST OP RESPIRATORY FAILURE-HAD TO BE VENTILATED,EXTUBATED NEXT DAY-PER PT SLOW TO WAKE UP IN GENERAL Right breast partial mastectomy 08/29/18 under [facility] with LMA #4 x 3 attempts- atraumatic with good seal- no other issues noted Osteoarthritis Venous stasis dermatitis LLE Chronic kidney disease STAGE 3-FOLLOWS WITH DR LIND Last seen by nephro 07/20/20- kidney function stable at that time Hyperlipidemia Surgical History Hx of colonoscopy Hx of lymph node excision right axillary Status post dilation and curettage 08/26/20 Dr. Cathy Calderon- Hysteroscopy, Dilation and Curettage, Possible Polypectomy History of esophagogastroduodenoscopy (EGD) S/P epidural steroid injection History of partial mastectomy of right breast no chemo, just radiation Status post trigger finger release X2 History of total knee replacement LEFT 2018 History of adverse response to anesthesia SLOW TO WAKE. PT HAD RESP FAILURE S/P KYLAH IN 2008 History of Moh's micrographic surgery for skin cancer S/P tendon repair R ARM History of cholecystectomy History of dilatation and curettage History of bilateral tubal ligation History of cataract surgery BL History of cardiac cath 2006 NO STENTS-[facility] [place] Family History Mother , age 38 heart disease due to rheumatic fever No problems noted. Father , age 73 heart disease No problems noted. Sister No problems noted. Sister No problems noted. Sister No problems noted. Sister No problems noted. Sister No problems noted. 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: No Beliefs That Will Affect Care: None marital status: / Current Living Situation: Family Current Living Situation Comment: staying with daughter at home current occupational status: retired How many Children do You have: 2 Other Information That Helps Us Care for You: No Feels Safe at Home: Yes Safety Concerns: Feels Safe At This Time Childhood Exposure to Second-Hand Smoke: No Diet: low salt and regular caffeine: No during the past year weight has: remained stable Dental Care, Regularly: No Physical Activity Frequency: 3-4 Times per Week Seatbelt Use: always Sunscreen Use: Yes Do you think of yourself as: straight/heterosexual Gender Identity: Female Assistive Devices: Cane, Denture - Upper, Denture - Lower and Glasses Review of Systems Review of Systems: See HPI above Physical Exam Physical Exam: General: no acute distress; pleasant affect; non-toxic appearing; frail appearing; cooperative; SpO2 94% on RA HEENT: normocephalic, atraumatic; no scleral icterus; PERRLA; vision and hearing intact Neck: supple; no lymphadenopathy; trachea midline Skin: warm, dry without signs of tenting; no cyanosis; no rashes, bruising, lesions, or erythema noted CV: chest wall NTP; irregular rhythm bradycardic between 50 to 60 bpm; S1/S2 normal; no murmurs/rubs/gallops; pulses intact and symmetric at radial, DP, and PT Lungs: no acute respiratory distress; symmetrical chest wall expansion; clear breath sounds across all lung mora w/o adventitious sounds; no wheezing ABD: Soft, NTP; BS present; no rebound/guarding; no distention MSK: no tics or fasciculations; +2 pitting edema noted in the LEs b/l, nonerythematous Neuro: A&Ox3; normal mood and affect; fluent speech; no focal deficits; sensation intact in the LEs b/l Results & Data Results & Data Vital Signs (Past 12 Hours) Vital Signs Temp Pulse Pulse Resp BP BP Pulse Ox 01/31/24 17:42 60 30 H 169/64 H 93 01/31/24 17:30 65 26 H 96/63 L 90 01/31/24 17:06 56 L 22 90 01/31/24 17:03 60 24 170/65 H 92 01/31/24 17:00 63 25 H 170/65 H 91 01/31/24 16:54 56 L 21 92 01/31/24 16:36 51 L 01/31/24 16:33 55 L 26 H 93 01/31/24 16:30 168/61 H 01/31/24 16:26 92 01/31/24 12:46 36.5 C 78 22 149/68 H 92 O2 Del Method 01/31/24 17:42 01/31/24 17:30 01/31/24 17:06 01/31/24 17:03 Room Air 01/31/24 17:00 01/31/24 16:54 01/31/24 16:36 01/31/24 16:33 01/31/24 16:30 01/31/24 16:26 Room Air 01/31/24 12:46 Room Air Code Status & VTE Plan Code Status Full code Supervising Physician Co-Signing Physician Notes Attending addendum: I have physically seen this patient, have supervised the ROBYN's activities, and agree with the H&P unless as otherwise noted. Assessment and Plan: Chronic diarrhea/loss of appetite- Stool PCR negative COVID, flu and RSV studies negative Most recent hospitalization from 01/22-01/26/2024 due to ELADIA superimposed on CKD Patient did not have any loose stools while in the emergency department Consult dietitian There is question if patient having some trouble with swallowing, and we are for consult speech therapy CKD stage III- Creatinine 2.91 is within her usual range, and improved from her admission creatinine before 3.83 Follow serially Asymptomatic bradycardia/atrial fibrillation- The patient will be admitted to telemetry for serial cardiac enzymes, serial EKG's, cardiac rhythm monitoring and a 2-D echocardiogram with Dopplers. Patient was observed to have heart rate dropped to 27 She will continue on Eliquis Pacer pads placed Patient presently is taking metoprolol succinate 200 mg p.o. twice daily, with evening dose being held Consult cardiology Anemia of chronic disease- Hemoglobin 8.7, with range 7.6-9.3 Serial EPO injections every 14 days Disposition- Patient may benefit from inpatient rehab stay if no significant improvement PG Care Time/CCT Total # of Minutes Spent Total Time Spent with Patient: Total time spent is greater than 50% in coordination of care (as documented) at patient's floor/unit and/or counseling patient: Coding [place] [address] INT INP/OBS CARE MIN Patient Type Established Medical Decision Making High Complexity Diagnoses Asymptomatic bradycardia R00.1 Anorexia R63.0 Anemia of chronic disease D63.8 Congestive heart failure I50.9 Heart failure chronicity: acute on chronic Heart failure type: unspecified Chronic kidney disease N18.9 Chronic kidney disease stage: unspecified stage Type 2 diabetes mellitus E11.9 Diarrhea R19.7 Colon cancer C18.9 Atrial fibrillation I48.91 (4) Congestive heart failure Heart failure chronicity: acute on chronic Heart failure type: unspecified Qualified Code(s): I50.9 - Heart failure, unspecified (5) Chronic kidney disease Chronic kidney disease stage: unspecified stage Qualified Code(s): N18.9 - Chronic kidney disease, unspecified
[2024-01-31 20:39] LABS: Magnesium 2.3 mg/dl (1.7-2.4)
[2024-01-31] MEDS ORDERED: GLUCOSE 40% GEL 15 GM TUBE PO PRN (22:14)
[2024-01-31] MEDS ORDERED: DEXTROSE 50% 50 ML SYRINGE IV PRN (22:14)
[2024-01-31] MEDS ORDERED: hydrALAZINE TAB 50 MG TAB PO SCH (22:14)
[2024-01-31] MEDS ORDERED: CARBOHYDRATES FOR HYPOGLYCEMIA PO PRN (22:14)
[2024-01-31] MEDS ORDERED: GLUCOSE 10 TAB/TUBE PO PRN (22:14)
[2024-01-31] MEDS ORDERED: GLUCAGON FOR INJ 1 MG VIAL SQ PRN (22:14)
[2024-01-31] MEDS: POTASSIUM CHLORIDE CRTAB 20 MEQ TABCR PO STA (22:24)
[2024-01-31] MEDS: INSULIN ASPART PER UNIT CHARGE SC SCH (22:31)
[2024-01-31] MEDS: Patient's HEIGHT &/or WEIGHT Needed SCH (22:37)
--- NOTE | 2024-01-31 22:53 | Electrocardiogram Report ---
Test Reason : Blood Pressure : */* mmHG Vent. Rate : 70 BPM Atrial Rate : * BPM P-R Int : * ms QRS Dur : 122 ms QT Int : 360 ms P-R-T Axes : * -32 128 degrees QTcB Int : 388 ms Atrial fibrillation Left axis deviation Left bundle branch block Abnormal ECG When compared with ECG of 23-Jan-2024 18:36, Left bundle branch block is now Present Confirmed by Marvin Can ([id number]) on 01/31/2024 10:53:36 PM Referred By: Confirmed By: Marvin Can
[2024-01-31] MEDS: ATORVASTATIN 40 MG TAB PO SCH (22:56)
[2024-01-31] MEDS: MAGNESIUM OXIDE 400 MG TAB PO SCH (22:56)
[2024-01-31] MEDS: LANTUS PER UNIT CHARGE SQ SCH (23:16)
[2024-01-31] MEDS: cilostazoL 100 MG TAB PO SCH (23:16)
[2024-01-31] MEDS: APIXABAN 2.5 MG TAB PO SCH (23:17)
[2024-01-31] MEDS: hydrALAZINE HCL 20 MG/ML VIAL IV ONE (23:39)
--- NOTE | 2024-02-01 03:06 | Billing Data ---
Date of Service February 01, 2024 Coding Level of Care Code 35838 INT INP/OBS CARE
[2024-02-01] MEDS: CALCITRIOL 0.25 MCG CAPSULE PO SCH (08:26)
[2024-02-01] MEDS: BUMETANIDE 1 MG TAB PO SCH (08:26)
[2024-02-01] MEDS: ISOSORBIDE MONO EXTENDED REL 60 MG TABCR PO SCH (09:38)
[2024-02-01] MEDS: hydrALAZINE TAB 50 MG TAB PO SCH (09:39)
[2024-02-01 09:44] LABS: BUN Creatinine Ratio 11.7 (10-20); Calcium 9.9 mg/dl (8.6-10.3); Creatinine Clr Calc Pharmacy 14.8 ml/min; Est GFR (African American) 16.2 ml/min; Est GFR (Non-African American) 13.9 ml/min; Potassium 3.7 mmol/L (3.5-5.1)
--- NOTE | 2024-02-01 12:12 | Cardiology Consultation ---
Date of Consultation February 01, 2024 Assessment & Plan (1) Asymptomatic bradycardia: (2) Atrial fibrillation: (3) CAD (coronary artery disease): (4) Hypertension: (5) (HFpEF) heart failure with preserved ejection fraction: Plan ASSESSMENT/PLAN: 1. Bradycardia: Asymptomatic. She had very brief episodes of atrial fibrillation on monitor in the 30s, which seemed to be only seconds. She was on a very large dose of metoprolol succinate. Agree with discontinuation of her home dose of metoprolol. Heart rate may rebound as her metoprolol succinate dissipates. When heart rate acceptable, can resume small dose of metoprolol tartrate such as 25 mg twice daily as tolerated. If her heart rate remains mostly in the 50s to 60s, she may not require beta-bijal going forward. There is no indication for pacemaker at this time. 2. Atrial fibrillation: Possibly permanent. Reportedly diagnosed in June 2023, and without tachycardia at that time while on large doses of beta-bijal. Beta-bijal as above as/if heart rate increases. No indication for pacemaker noted at this time. Continue anticoagulation for stroke risk reduction if no contraindication. 3. Heart failure with preserved EF: Chronic. She appears euvolemic on examination. Can continue home dose of Bumex. Low-sodium diet. No SGLT2 inhibitor given her advanced CKD. 4. CAD s/p CABG x 3: No angina. She did not present with acute coronary syndrome. Continue high intensity statin therapy. 5. Hypertension: Blood pressure mostly hypertensive throughout the hospital stay and at times severely hypertensive. Can resume low-dose beta-bijal as noted above as appropriate. Can also consider amlodipine if additional antihypertensive agent necessary. 6. Disposition: Cardiology will sign off at this time. Please call on-call shipfitters supervisor with any further questions or concerns. Plan of care discussed with Dr. Lange of the primary hospitalist service. Follow-up with her primary shipfitters supervisor, Dr. Betancourt, after discharge. Thank you for allowing me to participate in the care of your patient. Please call for any other questions or concerns. Sincerely, Sivakumar Can M.D. History of Present Illness Reason for Consultation: "Potential tachybrady; ? Pacer" Requesting Physician: Tulio Flores PA-C Attending Physician: Tom Lange MD History of Present Illness Ms. Unger is a very pleasant 83-year-old female with a history significant for heart failure with preserved EF, CAD s/p CABG x 3 (VALERIO to LAD, SVG to OM, SVG to Diag), DVT, atrial fibrillation, CKD, hypertension, type 2 diabetes, colon cancer breast cancer (s/p right lumpectomy 2019 with XRT and chemo). Her primary shipfitters supervisor is Dr. Betancourt. She was admitted on 01/31/2024 after presenting with shortness of breath. She had noted shortness of breath for 2 or 3 days as well as diarrhea. The shortness of breath was noted at rest but she denied orthopnea, chest pain, dizziness, lightheadedness, edema. She also denies melena, hematochezia, or hematuria. She states that her shortness of breath has since resolved. She denies dyspnea on exertion while ambulating in the room to use the restroom. She still has diarrhea, but otherwise her breathing is back to baseline. Admitting hospitalist noted bradycardia and reported it is asymptomatic. She denies lightheadedness, syncope, or near syncope. She had been on metoprolol succinate 200 mg twice daily. Metoprolol was held by the admitting hospitalist service. She states that her last dose of metoprolol succinate was on 01/31/2020 4 in the morning. She was diagnosed with atrial fibrillation in June 2023 and was reportedly rate controlled at that time while on her home dose of metoprolol succinate, 200 mg twice daily. Review of systems: As above. Family history: Noncontributory. Social history: She denies tobacco, alcohol, or drug abuse. She has been staying with her daughter. She has 2 daughters. [facility]. Allergies Allergy/AdvReac Type Severity Reaction Status Date / Time spironolactone AdvReac Severe Hyperkalemi Verified 01/31/24 16:08 a sulfamethoxazole AdvReac Severe SEVERE Verified 01/31/24 16:08 [From Bactrim] VOMITING trimethoprim [From Bactrim] AdvReac Severe SEVERE Verified 01/31/24 16:08 VOMITING JESSICA Inhibitors AdvReac Intermediate ARF Verified 01/31/24 16:08 diclofenac AdvReac Intermediate ankle Verified 01/31/24 16:08 swelling iron AdvReac Intermediate nausea/ Verified 01/31/24 16:08 VOMITING Home Medications Medication Instructions Recorded Confirmed Type cyanocobalamin (vitamin B-12) 1,000 mcg PO QAM 12/28/17 01/31/24 History 1,000 mcg capsule magnesium oxide 400 mg PO BID 12/28/17 01/31/24 History omega 1-vpg-cdt-fish oil 1,000 mg 1 cap PO QPM 12/28/17 01/31/24 History (120 mg-180 mg) capsule (Fish Oil) pen needle, diabetic 31 gauge x #30 ea 11/22/18 10/25/23 History 16" (BD Ultra-Fine Short Pen Needle) epoetin jase 2,000 unit/mL 0 unit subcut Q14D 12/02/20 01/31/24 History injection solution (Procrit) apixaban 2.5 mg tablet (Eliquis) 2.5 mg PO BID #180 tabs 01/29/23 01/31/24 Rx atorvastatin 40 mg tablet 40 mg PO HS #90 tabs 05/23/23 01/31/24 Rx cilostazol 100 mg tablet 100 mg PO BID #180 tabs 06/05/23 01/31/24 Rx metoprolol succinate 200 mg 200 mg PO BID #180 tabs 06/13/23 01/31/24 Rx tablet,extended release 24 hr calcitriol 0.25 mcg capsule 0.25 mcg PO DAILY #90 caps 09/10/23 01/31/24 Rx (Rocaltrol) insulin aspart U-100 100 unit/mL See Rx Instructions subcut TID #60 10/30/23 01/31/24 Rx (3 mL) subcutaneous pen (Novolog mL FlexPen U-100 Insulin aspart) isosorbide mononitrate 30 mg 30 mg PO QAM #90 tabs 12/19/23 01/31/24 Rx tablet,extended release 24 hr isosorbide mononitrate 60 mg 60 mg PO QAM #90 tabs 12/19/23 01/31/24 Rx tablet,extended release 24 hr alendronate 70 mg tablet (Fosamax) 70 mg PO WK #12 tabs 12/25/23 01/31/24 Rx hydralazine 100 mg tablet 0 mg PO TID 01/17/24 01/31/24 History insulin glargine 100 unit/mL (3 See Rx Instructions .Route .COMPLEX 01/24/24 01/31/24 History mL) subcutaneous pen (Lantus Solostar U-100 Insulin) bumetanide 0.5 mg tablet 0.5 mg PO DAILY #120 tabs 01/26/24 01/31/24 Rx Problem List Dysphagia Adult failure to thrive (Acute) Shortness of breath (Acute) Type 2 diabetes mellitus Chronic kidney disease Asymptomatic bradycardia Atrial fibrillation ELADIA (acute kidney injury) (Acute) Pleural effusion UTI (urinary tract infection) Acute kidney injury superimposed on CKD (Acute) Anorexia Anemia of chronic disease Hx of breast cancer right breast (Jun 2018). surgical intervention + radiation therapy Colon cancer Paroxysmal atrial fibrillation Acute kidney injury superimposed on chronic kidney disease Controlled diabetes mellitus with neurologic complication, with long-term current use of insulin S/P carpal tunnel release Left wrist- 10/24/[address] Lencho FRAZIER Generalized weakness Acute heart failure with preserved ejection fraction Hypoxia (Acute) Congestive heart failure (Acute) Diarrhea Hypoxia Elevated troponin Fungal infection of skin of abdomen Swelling of both lower extremities Volume overload Carpal tunnel syndrome, left Paresthesia of right lower extremity Neuroforaminal stenosis of lumbosacral spine Lumbosacral spondylosis Paresthesia (Acute) Brain TIA (Acute) (HFpEF) heart failure with preserved ejection fraction Acute diastolic CHF (congestive heart failure) (Acute) DVT (deep venous thrombosis) Right upper leg DVT -- March 2020 -- placed on eliquis.-NO ISSUES SINCE Recent u/s from 07/07/20= shows continued evidence of right common femoral DVT. Right knee DJD PVD (peripheral vascular disease) on Pletal Malignant neoplasm of upper-outer quadrant of right breast in female, estrogen receptor positive (Chronic) Vitamin D deficiency (Chronic) Obesity (BMI 35.0-39.9 without comorbidity) (Acute) Dyslipidemia (high LDL; low HDL) (Acute) Dysesthesia (Acute) History of total left knee replacement Thickened endometrium S/P right colectomy Status post hysteroscopy CKD (chronic kidney disease), stage IV Hyperparathyroidism HOPPER (dyspnea on exertion) Osteoporosis Chronic anticoagulation History of left knee replacement History of colon cancer 2020- adenocarcinoma Edema (Acute) S/P laparoscopic colectomy (08/26/20) Laparoscopic Extended Hemicolectomy, Extensive enterolysis - Sohail Quiroga, DO History of coronary artery bypass graft [place] [place] Medical History Urinary retention Type 2 diabetes mellitus with neurologic complication, with long-term current use of insulin Hypertension CAD (coronary artery disease) s/p 3 vessel CABG 2006 New onset a-fib Small bowel obstruction 2020 > after colon surgery Ileus Encounter for pre-operative examination Anemia Mild- has been evaluated by heme/onc for recent dx colon cancer Lumbar spinal stenosis Peripheral vascular disease Hx of acute respiratory failure WITH GB SURG 04/21/09 [facility] POST OP RESPIRATORY FAILURE-HAD TO BE VENTILATED,EXTUBATED NEXT DAY-PER PT SLOW TO WAKE UP IN GENERAL Right breast partial mastectomy 08/29/18 under [place] with LMA #4 x 3 attempts- atraumatic with good seal- no other issues noted Osteoarthritis Venous stasis dermatitis LLE Chronic kidney disease STAGE 3-FOLLOWS WITH DR LIND Last seen by nephro 07/20/20- kidney function stable at that time Hyperlipidemia Surgical History Hx of colonoscopy Hx of lymph node excision right axillary Status post dilation and curettage 08/26/20 Dr. Cathy Calderon- Hysteroscopy, Dilation and Curettage, Possible Polypectomy History of esophagogastroduodenoscopy (EGD) S/P epidural steroid injection History of partial mastectomy of right breast no chemo, just radiation Status post trigger finger release X2 History of total knee replacement LEFT 2018 History of adverse response to anesthesia SLOW TO WAKE. PT HAD RESP FAILURE S/P KYLAH IN 2008 History of Moh's micrographic surgery for skin cancer S/P tendon repair R ARM History of cholecystectomy History of dilatation and curettage History of bilateral tubal ligation History of cataract surgery BL History of cardiac cath 2006 NO STENTS-[facility] Family History Mother , age 38 heart disease due to rheumatic fever No problems noted. Father , age 73 heart disease No problems noted. Sister No problems noted. Sister No problems noted. Sister No problems noted. Sister No problems noted. Sister No problems noted. Daughter Myocardial infarction Breast cancer Family history of reaction to anesthesia SLOW TO WAKE UP/PONV Daughter Heart disease Other No family history of adverse response to anesthesia Denies family history of Ovarian cancer Prostate cancer Colorectal cancer Social History Smoking Status: Never smoker Second Hand Exposure: No; Do You Dip or Chew Tobacco: No; Hx Alcohol Use: No Hx Substance Use: No Preferred Language: Citizen Of [place] Communication Ability: Effective Visual Impairment: Limited Hearing Ability: Normal Laboratory Asst Required: No Beliefs That Will Affect Care: None marital status: / Current Living Situation: Family Current Living Situation Comment: staying with daughter at home current occupational status: retired How many Children do You have: 2 Other Information That Helps Us Care for You: No Feels Safe at Home: Yes Safety Concerns: Feels Safe At This Time Childhood Exposure to Second-Hand Smoke: No Diet: low salt and regular caffeine: No during the past year weight has: remained stable Dental Care, Regularly: No Physical Activity Frequency: 3-4 Times per Week Seatbelt Use: always Sunscreen Use: Yes Do you think of yourself as: straight/heterosexual Gender Identity: Female Assistive Devices: Cane and Walker Physical Exam Physical Exam: Gen.: No acute distress. Alert and oriented. HEENT: Anicteric sclera. Neck: No JVD. No bruits. Normal carotid upstrokes bilaterally. Cardiac: Irregularly irregular. Normal heart rate. Normal S1-S2. No murmurs, rubs, or gallops. Pulmonary: Clear to auscultation bilaterally without wheezes, rales, or rhonchi. Abdomen: Soft, nontender, nondistended, with normoactive bowel sounds. No bruits noted. Extremities: 2+ radial pulses bilaterally. 2+ posterior tibialis pulses bilaterally. Trace left pedal edema. Trace right lower extremity edema (s/p right LE SVG harvest). No cyanosis. Psychiatric: Affect appears appropriate. Results & Data Vital Signs (Past 12 Hours) Vital Signs Temp Pulse Pulse Resp BP Pulse Ox O2 Del Method 02/01/24 11:27 36.4 C L 58 L 18 110/63 91 Room Air 02/01/24 10:21 56 L 02/01/24 10:17 156/82 H 02/01/24 08:28 Room Air 02/01/24 07:15 36.8 C 62 18 200/71 H 93 Room Air 02/01/24 03:03 36.5 C 63 18 161/73 H 91 Room Air 02/01/24 00:46 180/65 H Laboratory Results Laboratory Results - last 24 hr 01/31/24 01/31/24 02/01/24 13:18 22:23 07:13 Sodium Potassium Chloride Carbon Dioxide Anion Gap BUN Creatinine Est Cr Clr Drug Dosing Est GFR ( Amer) Est GFR (Non-Af Amer) BUN/Creatinine Ratio Glucose POC Glucose 108 H 84 Calcium Magnesium 2.3 02/01/24 02/01/24 02/01/24 08:17 11:28 16:40 Sodium 141 Potassium 3.7 Chloride 105 Carbon Dioxide 26 Anion Gap 10 BUN 35 H Creatinine 2.99 H Est Cr Clr Drug Dosing 14.8 Est GFR ( Amer) 16.2 Est GFR (Non-Af Amer) 13.9 BUN/Creatinine Ratio 11.7 Glucose 83 POC Glucose 123 H 119 H Calcium 9.9 Magnesium Diagnostic Findings Telemetry reviewed and notable for abnormal but stable renal function, normal potassium, normal magnesium, chronic anemia. High sensitive troponin slightly elevated. Echo 01/24/2024: Normal LV size, wall motion, systolic function. EF 65 to 70%. Mildly dilated right ventricle with normal systolic function. Mild MR. RVSP approximately 47. Telemetry personally viewed: Atrial fibrillation in the 60s at the time of her evaluation this morning. Heart rate transiently into the 30s but very briefly for a few seconds intermittently earlier in the hospital stay. ECG personally reviewed 01/31/2024 at 1302: Atrial fibrillation 70 bpm. LBBB. History and physical report reviewed. Chest x-ray 01/31/2024: Interval improvement in pulmonary edema per radiology. Small bilateral pleural effusions with bibasilar opacities, favoring atelectasis per radiology. Medications Administered Current Inpatient Medications Acetaminophen (Acetaminophen 325 Mg Tab) 650 mg PO Q4H PRN PRN Reason: Pain or Fever Stop: 03/01/24 22:13 Apixaban (Apixaban 2.5 Mg Tab) 2.5 mg PO BID TRISH Stop: 03/01/24 22:13 Last Admin: 02/01/24 08:25 Dose: 2.5 mg Atorvastatin Calcium (Atorvastatin 40 Mg Tab) 40 mg PO HS TRISH Stop: 03/01/24 22:13 Last Admin: 01/31/24 22:56 Dose: 40 mg Bumetanide (Bumetanide 1 Mg Tab) 0.5 mg PO DAILY TRISH Stop: 03/02/24 08:59 Last Admin: 02/01/24 08:26 Dose: 0.5 mg Calcitriol (Calcitriol 0.25 Mcg Capsule) 0.25 mcg PO DAILY TRISH Stop: 03/02/24 08:59 Last Admin: 02/01/24 08:26 Dose: 0.25 mcg Cilostazol (Cilostazol 100 Mg Tab) 100 mg PO BID TRISH Stop: 03/01/24 22:13 Last Admin: 02/01/24 08:25 Dose: 100 mg Dextrose (Dextrose 50% 50 Ml Syringe) 25 - 50 ml IV UD PRN; Protocol PRN Reason: Hypoglycemia Protocol Stop: 03/01/24 22:13 Glucagon (Glucagon For Inj 1 Mg Vial) 1 mg SQ UD PRN; Protocol PRN Reason: Hypoglycemia Protocol Stop: 03/01/24 22:13 Glucose (Glucose 40% Gel 15 Gm Tube) 15 - 30 gm PO UD PRN; Protocol PRN Reason: Hypoglycemia Protocol Stop: 03/01/24 22:13 Glucose (Glucose 10 Tab/Tube) 4 - 8 tab PO UD PRN; Protocol PRN Reason: Hypoglycemia Treatment Stop: 03/01/24 22:13 Hydralazine HCl (Hydralazine Tab 50 Mg Tab) 100 mg PO TID TRISH Stop: 03/02/24 08:59 Last Admin: 02/01/24 14:26 Dose: 100 mg Insulin Aspart (Insulin Aspart Per Unit Charge) 0 units SC ACHS TRISH Stop: 03/01/24 22:13 Last Admin: 02/01/24 17:30 Dose: 2 units Insulin Glargine (Lantus Per Unit Charge) 5 units SQ QPM TRISH Stop: 03/01/24 22:13 Last Admin: 01/31/24 23:16 Dose: 5 units Isosorbide Mononitrate (Isosorbide [place] Extended Rel 60 Mg Tabcr) 60 mg PO QAM TRISH Stop: 03/02/24 08:59 Last Admin: 02/01/24 09:38 Dose: 60 mg Magnesium Oxide (Magnesium Oxide 400 Mg Tab) 400 mg PO BID TRISH Stop: 03/01/24 22:13 Last Admin: 02/01/24 08:27 Dose: 400 mg Miscellaneous (Carbohydrates For Hypoglycemia ) 15 - 30 gm PO UD PRN PRN Reason: Hypoglycemia Protocol Stop: 03/01/24 22:13 Pantoprazole Sodium (Pantoprazole 40 Mg Tab) 40 mg PO QAM TRISH Stop: 02/04/24 09:01 Last Admin: 02/01/24 15:05 Dose: 40 mg PG Care Time/CCT Total # of Minutes Spent Total Time Spent with Patient: Total time spent is greater than 50% in coordination of care (as documented) at patient's floor/unit and/or counseling patient: Coding Level of Care Code 12050 INT INP/OBS CARE 2/55MIN Diagnoses Asymptomatic bradycardia R00.1 Atrial fibrillation I48.91 Coronary artery disease involving chilkoot coronary artery of chilkoot heart without angina pectoris I25.10 Coronary Disease-Associated Artery/Lesion type: chilkoot artery Elem vs. transplanted heart: chilkoot heart Associated angina: without angina Essential hypertension I10 Hypertension type: essential hypertension (HFpEF) heart failure with preserved ejection fraction I50.30 (3) CAD (coronary artery disease) Coronary Disease-Associated Artery/Lesion type: chilkoot artery Elem vs. transplanted heart: chilkoot heart Associated angina: without angina Qualified Code(s): I25.10 - Atherosclerotic heart disease of chilkoot coronary artery without angina pectoris (4) Hypertension Hypertension type: essential hypertension Qualified Code(s): I10 - Essential (primary) hypertension
--- NOTE | 2024-02-01 14:14 | Hospitalist Progress Note ---
Date of Service February 01, 2024 Assessment & Plan (1) Asymptomatic bradycardia: Plan: Patient with bradycardia upon ER presentation low of 27 bpm in the ED Holding metoprolol succ appreciate [facility] consult likely underlying conduction disease in the setting of permanent a.fib and very large dose of meto succ 200mg/day bradycardia already improved with holding her meto succ likely to need smaller dose of beta bijal or potentially none moving forward monitor on telemetry TSH noted to be minimally elevated; doubt contributing to current clinical picture (2) Anorexia: Plan: speech therapy consult for swallow evaluation GI consulted due to malnutrition, weight loss, diarrhea, etc. last EGD - 2020 with gastritis in the event she has gastritis again start PPI once daily (3) Anemia of chronic disease: Plan: Chronic; Hgb 8.7 on arrival 2nd to CKD stage 5 (4) Congestive heart failure: Plan: chronic HF with preserved EF compensated on exam today certainly her CKD stage 5 contributes to volume issues bradycardia may have contributed to recent dyspnea continue Bumex 0.5 mg daily (5) Chronic kidney disease: Plan: stage 5 baseline Cr high 2's baseline CrCl about 15 BMP am for stability (6) Type 2 diabetes mellitus: Plan: Last A1c at 5.5% on 01/18/2024 cont lantus-novolog adjust as needed (7) Diarrhea: Plan: Negative C. difficile/stool Biofire panel recent CT a/p without colonic abnormalities to explain diarrhea could consider once daily colestipol or questran to bulk the stool could consider pancrease w/ meals as her pancreas is quite atrophied on CT a/p colonoscopy needed soon as noted below (8) Colon cancer: Plan: Follows with [facility] Patient has upcoming Procrit appointment on Monday 02/05 last CEA was 10/2023 - wnl right-sided hemicolectomy 2020 - Dr Quiroga last colonoscopy - 06/2022 - multiple polyps removed in light of diarrhea, weight loss, colon ca history, etc - needs colonoscopy soon stool biofire + c diff testing all negative (9) Atrial fibrillation: Plan: Continue Eliquis HOLD metoprolol succinate presented with bradycardia likely due to large dose of beta bijal in the setting of conduction disease bradycardia resolved rates improved cont to hold meto succ appreciate cardiology input (10) Severe protein-calorie malnutrition: Plan: 90-100kg weight about 4-6 months ago now ~80kg check a B1 level would benefit from Boost or Ensure, MVI, etc. GI consultation requested Plan DVT proph - renally dosed Eliquis PT michelle noted; cleared for home daughter extensively updated at bedside today Admission and Anticipated Discharge Date Admission Date: January 31, 2024 Subjective tele overnight - a.fib, bradycardia largely resolved; just occasional dip below 60; otherwise 60s/70s for rates; no tachycardia patient lying in bed comfortably during the visit dyspnea and HOPPER are both resolved no orthopnea or chest pain patient's daughter was at bedside she reports that her bumex dose was reduced from 0.5mg BID to 0.5mg daily after the last admission when her mother started having worsening breathing this week the daughter went back to 2 pills daily of the bumex this helped her mother's breathing largest complaints from pt & her daughter are that of GI symptoms patient reports very poor appetite for many months simply not hungry when she does eat she is eating junk food and not nutritious foods she "gags" - not so much a true dysphagia - but often times she has nausea which leads to the gagging nausea occurs after eating rare vomiting; when she vomits it typically is filled with food stuffs of note - has been a diabetic for many years - 10-20 years despite the nausea NO abd pain has frequent diarrhea stools liquid, "mushy" no blood no melena foul-smelling at times has lost about 15kg of weight over the last 6 months Review of Systems Review of Systems: gen - no fevers cv - no cp, no orthopnea, no PND pulm - no cough GI - no hematemesis, no coffee-ground emesis Physical Exam Physical Exam: gen - lying comfortably in bed, NAD neck - no JVD mouth - MMM heart - irregularly irregular, s1 s2, 1/6 MARYURI LSB lungs - CTA b/l, no rales abd - soft NT ND BS+; no HSM ext - no edema, pulses feet 2+ b/l psych - a/o x 3 skin - pallor Results & Data Results & Data Vital Signs (Past 12 Hours) Vital Signs Temp Pulse Pulse Resp BP Pulse Ox O2 Del Method 02/01/24 11:27 36.4 C L 58 L 18 110/63 91 Room Air 02/01/24 10:21 56 L 09/27/24 10:17 156/82 H 02/01/24 08:28 Room Air 02/01/24 07:15 36.8 C 62 18 200/71 H 93 Room Air 02/01/24 03:03 36.5 C 63 18 161/73 H 91 Room Air Laboratory Results Laboratory Results - last 24 hr 01/31/24 01/31/24 01/31/24 13:18 16:00 22:23 Sodium Potassium Chloride Carbon Dioxide Anion Gap BUN Creatinine Est Cr Clr Drug Dosing Est GFR ( Amer) Est GFR (Non-Af Amer) BUN/Creatinine Ratio Glucose POC Glucose 108 H Calcium Magnesium 2.3 Stl C. cayetanensis PCR Not Detected Stool Rotavirus A PCR Not Detected Stl Adenov F 40/41 PCR Not Detected Stool Astrovirus (PCR) Not Detected Stool Campylobacter PCR Not Detected Stl C. diff Tox B Gene Negative Cdiff Gene Stool Cryptosporidium PCR Not Detected Stl E.coli Shiga Tox PCR Not Detected Stl Enterotoxigenic E PCR Not Detected Stool EPEC (PCR) Not Detected Stool EAEC (PCR) Not Detected Stl E. histolytica PCR Not Detected Stool Giardia Lamblia PCR Not Detected Stool Salmonella PCR Not Detected Stool Sapovirus (PCR) Not Detected Stl P. shigelloides PCR Not Detected Stl Shigella/EIEC PCR Not Detected St Y.enterocolitica PCR Not Detected Stool Vibrio (PCR) Not Detected Stl Vibrio cholerae PCR Not Detected Stl Norovirus GI/GII PCR Not Detected 02/01/24 02/01/24 02/01/24 07:13 08:17 11:28 Sodium 141 Potassium 3.7 Chloride 105 Carbon Dioxide 26 Anion Gap 10 BUN 35 H Creatinine 2.99 H Est Cr Clr Drug Dosing 14.8 Est GFR ( Amer) 16.2 Est GFR (Non-Af Amer) 13.9 BUN/Creatinine Ratio 11.7 Glucose 83 POC Glucose 84 123 H Calcium 9.9 Magnesium Stl C. cayetanensis PCR Stool Rotavirus A PCR Stl Adenov F 40/41 PCR Stool Astrovirus (PCR) Stool Campylobacter PCR Stl C. diff Tox B Gene Stool Cryptosporidium PCR Stl E.coli Shiga Tox PCR Stl Enterotoxigenic E PCR Stool EPEC (PCR) Stool EAEC (PCR) Stl E. histolytica PCR Stool Giardia Lamblia PCR Stool Salmonella PCR Stool Sapovirus (PCR) Stl P. shigelloides PCR Stl Shigella/EIEC PCR St Y.enterocolitica PCR Stool Vibrio (PCR) Stl Vibrio cholerae PCR Stl Norovirus GI/GII PCR PG Care Time/CCT Total # of Minutes Spent Total Time Spent with Patient: Total time spent is greater than 50% in coordination of care (as documented) at patient's floor/unit and/or counseling patient: Coding Level of Care Code 85769 SUB INP/OBS CARE 3/50MIN Diagnoses Asymptomatic bradycardia R00.1 Anorexia R63.0 Anemia of chronic disease D63.8 Congestive heart failure I50.9 Heart failure chronicity: acute on chronic Heart failure type: unspecified Chronic kidney disease N18.9 Chronic kidney disease stage: unspecified stage Type 2 diabetes mellitus E11.9 Diarrhea R19.7 Colon cancer C18.9 Atrial fibrillation I48.91 Severe protein-calorie malnutrition E43 (4) Congestive heart failure Heart failure chronicity: acute on chronic Heart failure type: unspecified Qualified Code(s): I50.9 - Heart failure, unspecified (5) Chronic kidney disease Chronic kidney disease stage: unspecified stage Qualified Code(s): N18.9 - Chronic kidney disease, unspecified
[2024-02-01] MEDS: PANTOprazole 40 MG TAB PO SCH (15:05)
--- NOTE | 2024-02-01 17:03 | Gastrointestinal Consultation ---
Date of Consultation February 01, 2024 Assessment & Plan (1) Dysphagia: Mild dysphagia. Differential diagnosis includes esophageal motility disorder, gastroesophageal reflux. Esophageal stricture, web or ring should also be considered. Malignancy is less likely. Advance diet. If patient is discharged will arrange for an outpatient upper endoscopy. The patient will soon be due for surveillance colonoscopy. Both procedures could be scheduled as an outpatient. History of Present Illness Reason for Consultation: Dysphagia. Attending Physician: Tom Lange MD History of Present Illness The patient was atrial fibrillation was admitted because of asymptomatic bradycardia. Has been complaining of chronic mild dysphagia mostly to solids and decreased appetite. Lost about 20 pounds over the last year. No history of food impaction. Denies nausea, vomiting, abdominal pain. Denies heartburn. No recent upper endoscopy. History of colon cancer, status post hemicolectomy. The most recent colonoscopy was in June 2022. Allergies Allergy/AdvReac Type Severity Reaction Status Date / Time spironolactone AdvReac Severe Hyperkalemi Verified 01/31/24 16:08 a sulfamethoxazole AdvReac Severe SEVERE Verified 01/31/24 16:08 [From Bactrim] VOMITING trimethoprim [From Bactrim] AdvReac Severe SEVERE Verified 01/31/24 16:08 VOMITING JESSICA Inhibitors AdvReac Intermediate ARF Verified 01/31/24 16:08 diclofenac AdvReac Intermediate ankle Verified 01/31/24 16:08 swelling iron AdvReac Intermediate nausea/ Verified 01/31/24 16:08 VOMITING Home Medications Medication Instructions Recorded Confirmed Type cyanocobalamin (vitamin B-12) 1,000 mcg PO QAM 12/28/17 01/31/24 History 1,000 mcg capsule magnesium oxide 400 mg PO BID 12/28/17 01/31/24 History omega [id number]-fish oil 1,000 mg 1 cap PO QPM 12/28/17 01/31/24 History (120 mg-180 mg) capsule (Fish Oil) pen needle, diabetic 31 gauge x #30 ea 11/22/18 10/25/23 History 09/19" (BD Ultra-Fine Short Pen Needle) epoetin jase 2,000 unit/mL 0 unit subcut Q14D 12/02/20 01/31/24 History injection solution (Procrit) apixaban 2.5 mg tablet (Eliquis) 2.5 mg PO BID #180 tabs 01/29/23 01/31/24 Rx atorvastatin 40 mg tablet 40 mg PO HS #90 tabs 05/23/23 01/31/24 Rx cilostazol 100 mg tablet 100 mg PO BID #180 tabs 06/05/23 01/31/24 Rx metoprolol succinate 200 mg 200 mg PO BID #180 tabs 06/13/23 01/31/24 Rx tablet,extended release 24 hr calcitriol 0.25 mcg capsule 0.25 mcg PO DAILY #90 caps 09/10/23 01/31/24 Rx (Rocaltrol) insulin aspart U-100 100 unit/mL See Rx Instructions subcut TID #60 10/30/23 01/31/24 Rx (3 mL) subcutaneous pen (Novolog mL FlexPen U-100 Insulin aspart) isosorbide mononitrate 30 mg 30 mg PO QAM #90 tabs 12/19/23 01/31/24 Rx tablet,extended release 24 hr isosorbide mononitrate 60 mg 60 mg PO QAM #90 tabs 12/19/23 01/31/24 Rx tablet,extended release 24 hr alendronate 70 mg tablet (Fosamax) 70 mg PO WK #12 tabs 12/25/23 01/31/24 Rx hydralazine 100 mg tablet 0 mg PO TID 01/17/24 01/31/24 History insulin glargine 100 unit/mL (3 See Rx Instructions .Route .COMPLEX 01/24/24 01/31/24 History mL) subcutaneous pen (Lantus Solostar U-100 Insulin) bumetanide 0.5 mg tablet 0.5 mg PO DAILY #120 tabs 01/26/24 01/31/24 Rx Patient History Medical History Chronic kidney disease Urinary retention Type 2 diabetes mellitus with neurologic complication, with long-term current use of insulin Hypertension CAD (coronary artery disease) s/p 3 vessel CABG 2006 New onset a-fib Small bowel obstruction 2020 > after colon surgery Ileus Encounter for pre-operative examination Anemia Mild- has been evaluated by heme/onc for recent dx colon cancer Lumbar spinal stenosis Peripheral vascular disease Hx of acute respiratory failure WITH GB SURG 04/21/09 [facility] POST OP RESPIRATORY FAILURE-HAD TO BE VENTILATED,EXTUBATED NEXT DAY-PER PT SLOW TO WAKE UP IN GENERAL Right breast partial mastectomy 08/29/18 under [facility] with LMA #4 x 3 attempts- atraumatic with good seal- no other issues noted Osteoarthritis Venous stasis dermatitis LLE Chronic kidney disease STAGE 3-FOLLOWS WITH DR LIND Last seen by nephro 07/20/20- kidney function stable at that time Hyperlipidemia Surgical History Hx of colonoscopy Hx of lymph node excision right axillary Status post dilation and curettage 08/26/20 Dr. Cathy Calderon- Hysteroscopy, Dilation and Curettage, Possible Polypectomy History of esophagogastroduodenoscopy (EGD) S/P epidural steroid injection History of partial mastectomy of right breast no chemo, just radiation Status post trigger finger release X2 History of total knee replacement LEFT 2018 History of adverse response to anesthesia SLOW TO WAKE. PT HAD RESP FAILURE S/P KYLAH IN 2008 History of Moh's micrographic surgery for skin cancer S/P tendon repair R ARM History of cholecystectomy History of dilatation and curettage History of bilateral tubal ligation History of cataract surgery BL History of cardiac cath 2006 NO STENTS-[facility] Family History Mother , age 38 heart disease due to rheumatic fever No problems noted. Father , age 73 heart disease No problems noted. Sister No problems noted. Sister No problems noted. Sister No problems noted. Sister No problems noted. Sister No problems noted. Daughter Myocardial infarction Breast cancer Family history of reaction to anesthesia SLOW TO WAKE UP/PONV Daughter Heart disease Other No family history of adverse response to anesthesia Denies family history of Ovarian cancer Prostate cancer Colorectal cancer Social History Smoking Status: Never smoker Second Hand Exposure: No; Do You Dip or Chew Tobacco: No; Hx Alcohol Use: No Hx Substance Use: No Preferred Language: Lithuanian Communication Ability: Effective Visual Impairment: Limited Hearing Ability: Normal Banana Loader Required: No Beliefs That Will Affect Care: None marital status: / Current Living Situation: Family Current Living Situation Comment: staying with daughter at home current occupational status: retired How many Children do You have: 2 Other Information That Helps Us Care for You: No Feels Safe at Home: Yes Safety Concerns: Feels Safe At This Time Childhood Exposure to Second-Hand Smoke: No Diet: low salt and regular caffeine: No during the past year weight has: remained stable Dental Care, Regularly: No Physical Activity Frequency: 3-4 Times per Week Seatbelt Use: always Sunscreen Use: Yes Do you think of yourself as: straight/heterosexual Gender Identity: Female Assistive Devices: Cane and Walker Review of Systems Constitutional: About 20 pound. Denies weakness or fatigue, denies chills or fever. Respiratory: Denies shortness of breath cough or hemoptysis. Cardiovascular: Additional Comments: Denies chest pains or palpitations. Gastrointestinal: Complains of occasional mild dysphagia to solids. Denies abdominal pain, nausea, vomiting, diarrhea. Physical Exam Constitutional: WD/WN, vitals as above Respiratory: normal respiratory effort, lungs clear to auscultation Cardiovascular: RRR, no murmur, no edema Gastrointestinal (Abdomen): normal bowel sounds, soft, nontender, no hepatosplenomegaly Results & Data Vital Signs (Past 12 Hours) Vital Signs Temp Pulse Pulse Resp BP Pulse Ox O2 Del Method 02/01/24 16:05 55 L 02/01/24 15:32 36.6 C 64 18 154/63 H 94 Room Air 02/01/24 14:00 156/65 H 02/01/24 11:27 36.4 C L 58 L 18 110/63 91 Room Air 02/01/24 10:21 56 L 02/01/24 10:17 156/82 H 02/01/24 08:28 Room Air 02/01/24 07:15 36.8 C 62 18 200/71 H 93 Room Air PG Care Time/CCT Total # of Minutes Spent Total Time Spent with Patient: Total time spent is greater than 50% in coordination of care (as documented) at patient's floor/unit and/or counseling patient: Coding Level of Care Code 78293 IN/OBS CONSULT LVL 3,45M Diagnoses Other dysphagia R13.19 Dysphagia type: other dysphagia (1) Dysphagia Dysphagia type: other dysphagia Qualified Code(s): R13.19 - Other dysphagia
[2024-02-02 06:36] LABS: BUN Creatinine Ratio 11.7 (10-20); Calcium 9.6 mg/dl (8.6-10.3); Creatinine Clr Calc Pharmacy 15.2 ml/min; Est GFR (African American) 16.8 ml/min; Est GFR (Non-African American) 14.5 ml/min; Potassium 3.6 mmol/L (3.5-5.1)
--- NOTE | 2024-02-02 12:33 | Gastroenterology Progress Note ---
Date of Service February 02, 2024 Assessment & Plan (1) Dysphagia: Plan: Patient does not complain of any dysphagia per se she states that she has some problem with chewing the food and she has some problem with some harder foods but there is no issue with the propulsion of food from her mouth down her gastrointestinal tract she does not have any nausea vomiting and she does not feel that food gets stuck she does have false dentition which may need to be ev aluated she has lost weight over the last year but she attributes most of that to fluid loss she states that she feels good right now I spoke with the nurse who states that she has been eating well at the current time I would recommend a nutritional evaluation to do a calorie count x 72 hours to see if the patient is getting adequate food intake and proceed from there if there are any issues with dysphagia in the future the best approach would be to get a barium esophagram Admission and Anticipated Discharge Date Admission Date: January 31, 2024 Subjective Patient is lying comfortably in the bed she is a very pleasant female she states she wants to go home now and she has no active complaints she denies any specific dysphagia states she has some problem with chewing food but once the food is chewed there is no problem with the propulsion of food from the mouth to the stomach she denies food getting stuck she denies any nausea vomiting or abdominal pain she denies any constipation she states she she has lost some weight over the last year but she attributes most of that to loss of fluid she states her eating habits may have changed a little bit but she states she is eating well I spoke to the nurse also who also stated that the patient has not been having any problem with the food as long as it is of a soft consistency and she can chew it well she felt that there may be some issues with the dentures Review of Systems Review of Systems: A 10 point review of systems was done Physical Exam Constitutional: Elderly female who appears comfortable Eyes: PERRL, conjunctivae normal, anicteric sclerae Respiratory: Clear anteriorly Cardiovascular: S1 and S2 Gastrointestinal (Abdomen): Soft no tenderness or masses appreciated bowel sounds are present Results & Data Results & Data Vital Signs (Past 12 Hours) Vital Signs Temp Pulse Pulse Resp BP Pulse Ox O2 Del Method 02/02/24 11:19 36.7 C 67 16 163/62 H 93 Room Air 02/02/24 07:51 Room Air 02/02/24 07:24 36.7 C 75 18 191/54 H 99 Room Air 02/02/24 07:00 69 02/02/24 04:21 36.7 C 63 20 158/66 H 95 Room Air PG Care Time/CCT Total # of Minutes Spent Total Time Spent with Patient: Total time spent is greater than 50% in coordination of care (as documented) at patient's floor/unit and/or counseling patient: Coding Level of Care Code 20360 SUB INP/OBS CARE 2/35MIN Diagnoses Other dysphagia R13.19 Dysphagia type: other dysphagia (1) Dysphagia Dysphagia type: other dysphagia Qualified Code(s): R13.19 - Other dysphagia
--- NOTE | 2024-02-02 19:32 | Hospitalist Progress Note ---
Date of Service February 02, 2024 Assessment & Plan (1) Asymptomatic bradycardia: Plan: Patient with bradycardia upon ER presentation low of 27 bpm in the ED Holding metoprolol succ appreciate [facility] consult likely underlying conduction disease in the setting of permanent a.fib and very large dose of meto succ 200mg/day bradycardia already improved with holding her meto succ; only 1 brief (seconds) of bradycardia to about 40; otherwise rates are 70s/80s likely to need smaller dose of beta bijal or potentially none moving forward cont to monitor on telemetry TSH noted to be minimally elevated; doubt contributing to current clinical pictu re (2) Anorexia: Plan: speech therapy consult for swallow evaluation appreciated; did well w/o any issues GI consulted due to malnutrition, weight loss, diarrhea, etc. last EGD - 2020 with gastritis in the event she has gastritis again I started PPI once daily will ask Dr Driscoll to do EGD in addition to colonoscopy - she is scheduled for the latter in early March (3) Anemia of chronic disease: Plan: Chronic; Hgb 8.7 on arrival 2nd to CKD stage 5 (4) Congestive heart failure: Plan: chronic HF with preserved EF compensated on exam today once again certainly her CKD stage 5 contributes to volume issues bradycardia may have contributed to recent dyspnea continue Bumex 0.5 mg daily (5) Chronic kidney disease: Plan: stage 5 baseline Cr high 2's baseline CrCl about 15 BMP today again stable - Cr 2.9 (6) Type 2 diabetes mellitus: Plan: Last A1c at 5.5% on 01/18/2024 cont lantus-novolog adjust as needed controlled BSGs (7) Diarrhea: Plan: Negative C. difficile/stool Biofire panel recent CT a/p without colonic abnormalities to explain diarrhea could consider once daily colestipol or questran to bulk the stool could consider pancrease w/ meals as her pancreas is quite atrophied on CT a/p colonoscopy needed soon as noted above she has had no diarrhea x 48+ hours (8) Colon cancer: Plan: Follows with [facility] Patient has upcoming Procrit appointment on Monday 02/05 last CEA was 10/2023 - wnl right-sided hemicolectomy 2020 - Dr Quiroga last colonoscopy - 06/2022 - multiple polyps removed in light of diarrhea, weight loss, colon ca history, etc - needs colonoscopy soon stool biofire and c diff testing all negative (9) Atrial fibrillation: Plan: Continue Eliquis HOLD metoprolol succinate presented with bradycardia likely due to large dose of beta bijal in the setting of conduction disease bradycardia resolved rates improved cont to hold meto succ appreciate cardiology input (10) Severe protein-calorie malnutrition: Plan: 90-100kg weight about 4-6 months ago now ~80kg check a B1 level would benefit from Boost or Ensure, MVI, etc. add nephrocaps add thiamine daily GI consultation appreciated dietary consult appreciated Plan DVT proph - renally dosed Eliquis PT eval noted; cleared for home daughter extensively updated at bedside yesterday and again this evening by phone Admission and Anticipated Discharge Date Admission Date: January 31, 2024 Subjective no diarrhea no abd pain no "gagging" on food/liquids tolerating diet, ate 75% of breakfast and similar for lunch feels good no dyspnea or HOPPER wants to go home tomorrow tele overnight wnl with a.fib rates <100 only 1 episode of bradycardia lasting a couple of seconds (down to ~40) Review of Systems Review of Systems: gen - no fevers cv - no chest pain, no orthopnea pulm - no cough GI - no nausea Physical Exam Physical Exam: gen - lying comfortably in bed, NAD, looks great today neck - no JVD mouth - MMM heart - irregularly irregular, s1 s2, 1/6 MARYURI LSB lungs - CTA b/l, no rales abd - soft NT ND BS+; no HSM ext - no edema, pulses feet 2+ b/l psych - a/o x 3 Results & Data Results & Data Vital Signs (Past 12 Hours) Vital Signs Temp Pulse Pulse Resp BP Pulse Ox O2 Del Method 02/02/24 15:25 36.9 C 81 16 165/66 H 93 Room Air 02/02/24 14:00 77 02/02/24 11:19 36.7 C 67 16 163/62 H 93 Room Air 02/02/24 07:51 Room Air Laboratory Results Laboratory Results - last 24 hr 02/01/24 02/02/24 02/02/24 20:37 05:45 07:23 Sodium 141 Potassium 3.6 Chloride 106 Carbon Dioxide 27 Anion Gap 8 BUN 34 H Creatinine 2.90 H Est Cr Clr Drug Dosing 15.2 Est GFR ( Amer) 16.8 Est GFR (Non-Af Amer) 14.5 BUN/Creatinine Ratio 11.7 Glucose 92 POC Glucose 159 H 112 H Calcium 9.6 Vitamin B1 Pending 02/02/24 02/02/24 11:19 16:17 Sodium Potassium Chloride Carbon Dioxide Anion Gap BUN Creatinine Est Cr Clr Drug Dosing Est GFR ( Amer) Est GFR (Non-Af Amer) BUN/Creatinine Ratio Glucose POC Glucose 184 H 141 H Calcium Vitamin B1 PG Care Time/CCT Total # of Minutes Spent Total Time Spent with Patient: Total time spent is greater than 50% in coordination of care (as documented) at patient's floor/unit and/or counseling patient: Coding Level of Care Code 57825 SUB INP/OBS CARE 2/35MIN Diagnoses Asymptomatic bradycardia R00.1 Anorexia R63.0 Anemia of chronic disease D63.8 Congestive heart failure I50.9 Heart failure chronicity: acute on chronic Heart failure type: unspecified Chronic kidney disease N18.9 Chronic kidney disease stage: unspecified stage Type 2 diabetes mellitus E11.9 Diarrhea R19.7 Colon cancer C18.9 Atrial fibrillation I48.91 Severe protein-calorie malnutrition E43 (4) Congestive heart failure Heart failure chronicity: acute on chronic Heart failure type: unspecified Qualified Code(s): I50.9 - Heart failure, unspecified (5) Chronic kidney disease Chronic kidney disease stage: unspecified stage Qualified Code(s): N18.9 - Chronic kidney disease, unspecified
[2024-02-03] MEDS: NEPHROCAPS PO SCH (08:42)
[2024-02-03] MEDS: THIAMINE HCL 100 MG TAB PO SCH (08:42)
--- NOTE | 2024-02-03 10:52 | Gastroenterology Progress Note ---
Date of Service February 03, 2024 Assessment & Plan (1) Dysphagia: Plan: Patient without any dysphagia at the current time. She states that she can eat without complaints she is not having any issues as related to her GI tract at the current time she also states that her appetite has improved somewhat while she has been over here would would do nutritional evaluation while in the hospital and monitor for a calorie count time 72 hours she is scheduled for a colonoscopy as per the notes in March and if the symptoms persist can add an EGD at that time also History of colon cancer She had a colonoscopy last year and is followed by GI can continue follow-up as per GI on the outpatient Thank you for allowing us to take part in the care of your patient we will continue to follow her with you Admission and Anticipated Discharge Date Admission Date: January 31, 2024 Subjective Patient is lying comfortably in the bed she denies any dysphagia or reflux nausea or vomiting no specific GI complaints at the present time no complaints of diarrhea either she states her appetite has somewhat improved and as long as she gets what she wants to eat she has no issues with that on the whole quite asymptomatic from the GI standpoint currently Review of Systems Review of Systems: A 10 point review of system was done Physical Exam Constitutional: WD/WN, vitals as above Respiratory: normal respiratory effort, lungs clear to auscultation Cardiovascular: S1 and S2 Gastrointestinal (Abdomen): normal bowel sounds, soft, nontender, no hepatosplenomegaly Results & Data Results & Data Vital Signs (Past 12 Hours) Vital Signs Temp Pulse Resp BP Pulse Ox O2 Del Method 02/03/24 08:08 37.0 C 92 H 20 168/73 H 100 Room Air 02/03/24 03:35 36.9 C 86 16 187/71 H 92 Room Air 02/03/24 00:11 36.8 C 82 18 131/51 L 98 Room Air PG Care Time/CCT Total # of Minutes Spent Total Time Spent with Patient: Total time spent is greater than 50% in coordination of care (as documented) at patient's floor/unit and/or counseling patient: Coding Level of Care Code 75599 SUB INP/OBS CARE 2/35MIN Diagnoses Other dysphagia R13.19 Dysphagia type: other dysphagia (1) Dysphagia Dysphagia type: other dysphagia Qualified Code(s): R13.19 - Other dysphagia
[2024-02-03] MEDS: METOPROLOL TARTRATE 25 MG TAB PO STA (11:33)
[2024-02-03 16:42] LABS: Appearance Urine Clear (Clear); Bacteria Urine Automated 1+ (None Seen); Bilirubin Urine Negative (Negative); Blood Urine Negative (Negative); Color Urine Yellow; Epithelial Cell Urine Auto 0-2 /hpf (0-2); Glucose Urine UA Negative (Negative); Ketones Urine Negative (Negative); Leukocyte Esterase Urine 1+ (Negative); Nitrite Urine Negative (Negative); Protein Urine 1+ (Negative); Specific Gravity Urine 1.013 (1.000-1.030); Urobilinogen Urine Negative (Negative); WBC Urine Automated 0-5 /hpf (0-5); pH Urine 6.5 (4.5-7.5)
--- NOTE | 2024-02-03 17:42 | Hospitalist Progress Note ---
Date of Service February 03, 2024 Assessment & Plan (1) Fever: Plan: Tm 37.8 this afternoon u/a possible c/w UTI; cx sent; empiric Rocephin while awaiting culture COVID negative during rounds today she had no infectious complaints - just lack of appetite which is chronic for her if temp spike >38 get blood cx's, repeat a cxr, etc. (2) Asymptomatic bradycardia: Plan: Patient with bradycardia upon ER presentation low of 27 bpm in the ED Holding metoprolol succ appreciate [facility] consult likely underlying conduction disease in the setting of permanent a.fib and very large dose of meto succ 200mg/day bradycardia already improved with holding her meto succ; only 1 brief (seconds) of bradycardia to about 40 yesterday TSH noted to be minimally elevated; doubt contributing to current clinical picture overnight rates at rest noted to be 90s to low 100s and up to 120 w/ walking started back metoprolol tartrate 25mg BID monitor response (3) Anorexia: Plan: speech therapy consult for swallow evaluation appreciated; did well w/o any issues GI consulted due to malnutrition, weight loss, diarrhea, etc. last EGD - 2020 with gastritis in the event she has gastritis again I started PPI once daily will ask Dr Driscoll to do EGD in addition to colonoscopy - she is scheduled for the latter in early March (4) Anemia of chronic disease: Plan: Chronic; Hgb 8.7 on arrival 2nd to CKD stage 5 recheck CBC am for stability (5) Congestive heart failure: Plan: chronic HF with preserved EF compensated on exam today once again certainly her CKD stage 5 contributes to volume issues bradycardia may have contributed to recent dyspnea continue Bumex 0.5 mg daily starting back low-dose metoprolol today (6) Chronic kidney disease: Plan: stage 5 baseline Cr high 2's baseline CrCl about 15 repeat BMP am (7) Type 2 diabetes mellitus: Plan: Last A1c at 5.5% on 01/18/2024 cont lantus-novolog adjust as needed controlled BSGs (8) Diarrhea: Plan: Negative C. difficile/stool Biofire panel recent CT a/p without colonic abnormalities to explain diarrhea could consider once daily colestipol or questran to bulk the stool could consider pancrease w/ meals as her pancreas is quite atrophied on CT a/p colonoscopy needed soon as noted above she has had no diarrhea x 72+ hours (9) Colon cancer: Plan: Follows with [facility] Patient has upcoming Procrit appointment on Monday 02/05 last CEA was 10/2023 - wnl right-sided hemicolectomy 2020 - Dr Quiroga last colonoscopy - 06/2022 - multiple polyps removed in light of diarrhea, weight loss, colon ca history, etc - needs colonoscopy soon stool biofire and c diff testing all negative (10) Atrial fibrillation: Plan: Continue Eliquis HOLD metoprolol succinate presented with bradycardia likely due to large dose of beta bijal in the setting of conduction disease bradycardia resolved rates improved now rates trending towards fast again (mildly fast, low 100s) cont to hold meto succ but start metoprolol tartrate 25mg BID monitor response appreciate cardiology input (11) Severe protein-calorie malnutrition: Plan: 90-100kg weight about 4-6 months ago now ~80kg check a B1 level would benefit from Boost or Ensure, MVI, etc. added nephrocaps added thiamine daily GI consultation appreciated dietary consult appreciated Plan DVT proph - renally dosed Eliquis PT cristobalal noted; cleared for home daughter extensively updated at bedside again today watch overnight Admission and Anticipated Discharge Date Admission Date: January 31, 2024 Subjective patient ate little for breakfast, blaming the types of food available for not eating doesn't really want to eat any lunch denies "gagging," nausea, emesis, abd pain no diarrhea no dyspnea only c/o weakness with walking overnight - a.fib rates >100 (low 100s) started metoprolol tartrate 25mg following such her HRs at most were about 120 (with walking) but quickly went down to 80s/90s following the walk daughter at bedside after my visit she had a low-grade fever in the afternoon Review of Systems Review of Systems: gen - poor appetite cv - no chest pain, no orthopnea, no edema pulm - no dyspnea GI - no pain or emesis Physical Exam Physical Exam: gen - lying comfortably in bed, NAD - looks same as yesterday neck - no JVD mouth - MMM heart - irregularly irregular, s1 s2, 1/6 MARYURI LSB, rate <100 lungs - CTA b/l, no rales abd - soft NT ND BS+; no HSM ext - no edema, pulses feet 2+ b/l psych - a/o - but asks repeated questions, gets dates mixed up a bit Results & Data Results & Data Vital Signs (Past 12 Hours) Vital Signs Temp Pulse Pulse Resp BP Pulse Ox O2 Del Method 02/03/24 15:43 37.7 C H 85 18 137/63 98 Room Air 02/03/24 15:34 97 H 168/63 H 02/03/24 11:53 114 H 02/03/24 11:36 37.0 C 100 H 20 172/49 H 98 Room Air 02/03/24 08:08 37.0 C 92 H 20 168/73 H 100 Room Air Laboratory Results Laboratory Results - last 24 hr 02/02/24 02/03/24 02/03/24 20:52 07:55 11:04 POC Glucose 137 H 128 H 136 H Urine Color Urine Appearance Urine pH Ur Specific Brayton Urine Protein Urine Glucose (UA) Urine Ketones Urine Blood Urine Nitrite Urine Bilirubin Urine Urobilinogen Ur Leukocyte Esterase Urine WBC (Auto) Urine RBC (Auto) U Hyaline Cast (Auto) U Epithel Cells (Auto) Urine Bacteria (Auto) SARS-CoV-2 (PCR) SARS-CoV-2 RNA (RT-PCR) 02/03/24 02/03/24 02/03/24 16:23 16:26 16:34 POC Glucose 169 H Urine Color Yellow Urine Appearance Clear Urine pH 6.5 Ur Specific Brayton 1.013 Urine Protein 1+ H Urine Glucose (UA) Negative Urine Ketones Negative Urine Blood Negative Urine Nitrite Negative Urine Bilirubin Negative Urine Urobilinogen Negative Ur Leukocyte Esterase 1+ H Urine WBC (Auto) 0-5 Urine RBC (Auto) 3-5 H U Hyaline Cast (Auto) 3-5 H U Epithel Cells (Auto) 0-2 Urine Bacteria (Auto) 1+ H SARS-CoV-2 (PCR) NEGATIVE SARS-CoV-2 RNA (RT-PCR) Cancelled PG Care Time/CCT Total # of Minutes Spent Total Time Spent with Patient: Total time spent is greater than 50% in coordination of care (as documented) at patient's floor/unit and/or counseling patient: Coding Level of Care Code 03772 SUB INP/OBS CARE 3/50MIN Diagnoses Fever R50.9 Asymptomatic bradycardia R00.1 Anorexia R63.0 Anemia of chronic disease D63.8 Congestive heart failure I50.9 Heart failure chronicity: acute on chronic Heart failure type: unspecified Chronic kidney disease N18.9 Chronic kidney disease stage: unspecified stage Type 2 diabetes mellitus E11.9 Diarrhea R19.7 Colon cancer C18.9 Atrial fibrillation I48.91 Severe protein-calorie malnutrition E43 (5) Congestive heart failure Heart failure chronicity: acute on chronic Heart failure type: unspecified Qualified Code(s): I50.9 - Heart failure, unspecified (6) Chronic kidney disease Chronic kidney disease stage: unspecified stage Qualified Code(s): N18.9 - Chronic kidney disease, unspecified
[2024-02-03] MEDS: ACETAMINOPHEN 325 MG TAB PO PRN (18:13)
[2024-02-03] MEDS: cefTRIAXone SODIUM 2,000 MG/50 ML BAG IV SCH (18:34)
[2024-02-03] MEDS: METOPROLOL TARTRATE 25 MG TAB PO SCH (21:21)
[2024-02-04 09:21] LABS: Basophils # (auto) 0.01 K/uL (0.00-0.20); Basophils % (auto) 0.2 %; Eosinophils # (auto) 0.12 K/uL (0.00-0.50); Eosinophils % (auto) 2.4 %; Hemoglobin 8.2 g/dl (12.0-16.0); Immature Granulocytes # (auto) 0.01 K/uL (0.01-0.20); Immature Granulocytes % (auto) 0.2 %; Lymphocytes # (auto) 0.36 K/uL (1.20-3.40); Lymphocytes % (auto) 7.1 %; Mean Corpuscular Hemoglobin 33.7 pg (25.0-34.0); Mean Corpuscular Hgb Conc 32.8 g/dL (32.0-36.0); Mean Corpuscular Volume 102.9 fL (80.0-100.0); Mean Platelet Volume 10.4 fL (9.4-12.4); Monocytes # (auto) 0.66 K/uL (0.11-0.59); Monocytes % (auto) 13.1 %; Neutrophils # (auto) 3.88 K/uL (1.40-6.50); Platelet Count 120 K/uL (130-400); RDW Coefficient of Variation 16.2 % (11.5-14.5); RDW Standard Deviation 60.7 fL (36.4-46.3); Red Blood Count 2.43 M/uL (4.20-5.40); White Blood Count 5.04 K/ul (4.8-10.8)
[2024-02-04 09:37] LABS: Albumin Globulin Ratio 1.1 (0.9-2); Bilirubin,Total 2.9 mg/dl (0.2-1.0); C Reactive Protein 4.36 mg/dl (0-0.5); Calcium 9.3 mg/dl (8.6-10.3); Creatinine Clr Calc Pharmacy 16.4 ml/min; Est GFR (African American) 18.3 ml/min; Est GFR (Non-African American) 15.8 ml/min; Globulin 2.7 gm/dl (2.5-4.0); Potassium 3.5 mmol/L (3.5-5.1); Total Protein 5.7 gm/dl (6.0-8.3)
[2024-02-04] MEDS: METOPROLOL TARTRATE 25 MG TAB PO STA (12:51)
--- NOTE | 2024-02-04 19:16 | Hospitalist Progress Note ---
Date of Service February 04, 2024 Assessment & Plan (1) Fever: Plan: Tm 37.8 on 02/03/24 u/a possibly c/w UTI; cx sent; empiric Rocephin while awaiting culture COVID negative on 02/02 COVID/flu/RSV on day of admission negative patient has no infectious complaints/symptoms again today (ongoing lack of appetite but this is chronic) if temp spike >38 get blood cx's plan for a 2-view cxr in am tomorrow morning due to a report of cough mildly low platelets today - due to infectious process? (2) Asymptomatic bradycardia: Plan: Patient with bradycardia upon ER presentation low of 27 bpm in the ED metoprolol succ 200mg daily was stopped at admission seen by [facility] - likely underlying conduction disease in the setting of permanent a.fib and very large dose of meto succ 200mg/day bradycardia already improved/resolved with holding her meto succ; only 1 brief (seconds) of bradycardia to about 40 over the weekend TSH noted to be minimally elevated; doubt contributing to current clinical picture, however started back metoprolol tartrate 25mg BID yesterday due to rising rates off the metoprolol succinate rates still not optimal - 130s/140s with activity will increase metoprolol tartrate to 50mg BID monitor response cont Eliquis 2.5mg BID (3) Anorexia: Plan: speech therapy consult for swallow evaluation appreciated; did well w/o any issues GI consulted due to malnutrition, weight loss, diarrhea, etc. last EGD - 2020 with gastritis in the event she has gastritis again I started PPI once daily - would send home with such will ask Dr Driscoll to do EGD in addition to colonoscopy - she is scheduled for the latter in early March 2024 (4) Anemia of chronic disease: Plan: Chronic; Hgb 8.7 on arrival 2nd to CKD stage 5 H/H acceptable today (5) Congestive heart failure: Plan: chronic HF with preserved EF compensated on exam today once again certainly her CKD stage 5 contributes to volume issues bradycardia may have contributed to recent dyspnea at home continue Bumex 0.5 mg daily continue metoprolol BID (6) Chronic kidney disease: Plan: stage 5 baseline Cr high 2's baseline CrCl about 15 repeat BMP today is stable (7) Type 2 diabetes mellitus: Plan: Last A1c at 5.5% on 01/18/2024 cont lantus-novolog controlled (8) Diarrhea: Plan: Negative C. difficile/stool Biofire panel recent CT a/p without colonic abnormalities to explain diarrhea could consider once daily colestipol or questran to bulk the stool IF diarrhea returns could consider pancrease w/ meals as her pancreas is quite atrophied on CT a/p colonoscopy needed soon as noted above she has had no diarrhea x 3-4+ days (9) Colon cancer: Plan: Follows with [facility] Patient has upcoming Procrit appointment on Monday 02/05 last CEA was 10/2023 - wnl right-sided hemicolectomy 2020 - Dr Quiroga last colonoscopy - 06/2022 - multiple polyps removed in light of diarrhea, weight loss, colon ca history, etc - needs colonoscopy soon; currently scheduled for 03/[address] Driscoll stool biofire and c diff testing all negative (10) Atrial fibrillation: Plan: Continue Eliquis HOLD metoprolol succinate presented with bradycardia likely due to large dose of beta bijal in the setting of conduction disease bradycardia resolved now rates trending towards fast again see above in "bradycardia" (11) Severe protein-calorie malnutrition: Plan: 90-100kg weight about 4-6 months ago now ~80kg check a B1 level would benefit from Boost or Ensure, MVI, etc. added nephrocaps added thiamine daily - send home with both GI consultation appreciated dietary consult appreciated Plan DVT proph - renally dosed Eliquis PT eval noted; cleared for home daughter extensively updated by phone this evening watch overnight if HRs are controlled without bradycardia or tachycardia, if temps are normal, and if labs are stable might be able to d/c home on 02/04 Admission and Anticipated Discharge Date Admission Date: January 31, 2024 Subjective patient resting in bed a.fib rates 90s/low 100s this am with activity today her rates neftali to the 130s/140s briefly patient denies any complaints except for ongoing poor appetite again complains about the food here we discussed her mild fever overnight - she denies any dysuria, foul-smelling urine, headache, congestion, cough when I spoke with pt's daughter on the phone today daughter reports a new-onset dry cough in her mother Review of Systems Review of Systems: cv - no orthopnea, no chest pain pulm - no dyspnea GI - no abd pain or N/V Physical Exam Physical Exam: gen - lying comfortably in bed, NAD - looks same as yesterday neck - no JVD mouth - MMM heart - irregularly irregular, s1 s2, 1/6 MARYURI LSB, rate 80s/90s lungs - CTA b/l, no rales abd - soft NT ND BS+; no HSM ext - no edema, pulses feet 2+ b/l skin - no rashes Results & Data Results & Data Vital Signs (Past 12 Hours) Vital Signs Temp Pulse Pulse Resp BP Pulse Ox O2 Del Method 02/04/24 15:15 37.2 C 82 18 155/62 H 90 Room Air 02/04/24 13:00 97 H 02/04/24 11:42 37.0 C 96 H 20 135/61 98 Room Air 02/04/24 07:43 37.0 C 92 H 18 195/75 H 91 Room Air Laboratory Results Laboratory Results - last 24 hr 02/03/24 02/04/24 02/04/24 20:53 07:34 08:51 WBC 5.04 RBC 2.43 L Hgb 8.2 L Hct 25.0 L MCV 102.9 H MCH 33.7 MCHC 32.8 RDW Std Deviation 60.7 H RDW Coeff of Kirsty 16.2 H Plt Count 120 L MPV 10.4 Immature Gran % (Auto) 0.2 Neut % (Auto) 77.0 Lymph % (Auto) 7.1 Labette % (Auto) 13.1 Eos % (Auto) 2.4 Baso % (Auto) 0.2 Neut # (Auto) 3.88 Lymph # (Auto) 0.36 L Labette # (Auto) 0.66 H Eos # (Auto) 0.12 Baso # (Auto) 0.01 Immature Gran # (Auto) 0.01 Sodium 140 Potassium 3.5 Chloride 105 Carbon Dioxide 27 Anion Gap 8 BUN 27 H Creatinine 2.70 H Est Cr Clr Drug Dosing 16.4 Est GFR ( Amer) 18.3 Est GFR (Non-Af Amer) 15.8 BUN/Creatinine Ratio 10.0 Glucose 108 H POC Glucose 150 H 110 H Calcium 9.3 Total Bilirubin 2.9 H AST 11 L ALT 5 L Alkaline Phosphatase 60 C-Reactive Protein 4.36 H Total Protein 5.7 L Albumin 3.0 L Globulin 2.7 Albumin/Globulin Ratio 1.1 02/04/24 02/04/24 11:05 16:24 WBC RBC Hgb Hct MCV MCH MCHC RDW Std Deviation RDW Coeff of Kirsty Plt Count MPV Immature Gran % (Auto) Neut % (Auto) Lymph % (Auto) Labette % (Auto) Eos % (Auto) Baso % (Auto) Neut # (Auto) Lymph # (Auto) Labette # (Auto) Eos # (Auto) Baso # (Auto) Immature Gran # (Auto) Sodium Potassium Chloride Carbon Dioxide Anion Gap BUN Creatinine Est Cr Clr Drug Dosing Est GFR ( Amer) Est GFR (Non-Af Amer) BUN/Creatinine Ratio Glucose POC Glucose 158 H 160 H Calcium Total Bilirubin AST ALT Alkaline Phosphatase C-Reactive Protein Total Protein Albumin Globulin Albumin/Globulin Ratio PG Care Time/CCT Total # of Minutes Spent Total Time Spent with Patient: Total time spent is greater than 50% in coordination of care (as documented) at patient's floor/unit and/or counseling patient: Coding Level of Care Code 89847 SUB INP/OBS CARE 3/50MIN Diagnoses Fever R50.9 Asymptomatic bradycardia R00.1 Anorexia R63.0 Anemia of chronic disease D63.8 Congestive heart failure I50.9 Heart failure chronicity: acute on chronic Heart failure type: unspecified Chronic kidney disease N18.9 Chronic kidney disease stage: unspecified stage Type 2 diabetes mellitus E11.9 Diarrhea R19.7 Colon cancer C18.9 Atrial fibrillation I48.91 Severe protein-calorie malnutrition E43 (5) Congestive heart failure Heart failure chronicity: acute on chronic Heart failure type: unspecified Qualified Code(s): I50.9 - Heart failure, unspecified (6) Chronic kidney disease Chronic kidney disease stage: unspecified stage Qualified Code(s): N18.9 - Chronic kidney disease, unspecified
[2024-02-04] MEDS: METOPROLOL TARTRATE 50 MG TAB PO SCH (21:48)
[2024-02-05 07:18] LABS: Basophils # (auto) 0.01 K/uL (0.00-0.20); Basophils % (auto) 0.2 %; Eosinophils # (auto) 0.11 K/uL (0.00-0.50); Eosinophils % (auto) 2.7 %; Hematocrit (blood only) 23.7 % (37.0-47.0); Hemoglobin 7.7 g/dl (12.0-16.0); Immature Granulocytes # (auto) 0.02 K/uL (0.01-0.20); Immature Granulocytes % (auto) 0.5 %; Lymphocytes # (auto) 0.67 K/uL (1.20-3.40); Lymphocytes % (auto) 16.7 %; Mean Corpuscular Hemoglobin 32.9 pg (25.0-34.0); Mean Corpuscular Hgb Conc 32.5 g/dL (32.0-36.0); Mean Corpuscular Volume 101.3 fL (80.0-100.0); Mean Platelet Volume 10.7 fL (9.4-12.4); Monocytes # (auto) 0.69 K/uL (0.11-0.59); Monocytes % (auto) 17.2 %; Neutrophils # (auto) 2.52 K/uL (1.40-6.50); Neutrophils % (auto) 62.7 %; Platelet Count 122 K/uL (130-400); RDW Coefficient of Variation 16.1 % (11.5-14.5); RDW Standard Deviation 59.7 fL (36.4-46.3); Red Blood Count 2.34 M/uL (4.20-5.40); White Blood Count 4.02 K/ul (4.8-10.8)
[2024-02-05 07:39] LABS: BUN Creatinine Ratio 10.6 (10-20); Creatinine Clr Calc Pharmacy 16.4 ml/min; Est GFR (African American) 18.8 ml/min; Est GFR (Non-African American) 16.2 ml/min; Potassium 3.3 mmol/L (3.5-5.1)
[2024-02-05 07:41] LABS: Anisocytosis Present
[2024-02-05 07:44] VITALS: BP 175/63; RESP 14; TEMP 99.1; O2SAT 93
[2024-02-05 09:14] VITALS: PULSE 72
--- NOTE | 2024-02-05 10:17 | XRay Report ---
XR chest 2V PA/lateral HISTORY: 83 years-old Female recent fever, cough acute cough and fever COMPARISON: 01/31/2024 TECHNIQUE: PA and lateral views of the chest FINDINGS: Cardiac silhouette is enlarged. Median sternotomy with CABG. Bony vascular congestion with interstiti al coarsening. Small pleural effusions with bibasilar densities again noted. No pneumothorax. Bones a ppear intact. IMPRESSION: 1. Cardiomegaly with unchanged interstitial pulmonary edema. 2. Small pleural effusions with persistent mild bibasilar opacities, likely atelectatic. ACT 112: Negative or not required by law. The above report was generated using voice recognition software. It may contain grammatical, syntax o r spelling errors. Electronically signed by: Pancho Alvarado M.D. 02/05/2024 10:15 AM
--- NOTE | 2024-02-05 17:46 | Discharge Summary ---
Discharge Summary Date of Service February 05, 2024 Principal Dx & Hospital Course #1 = Principal Diagnosis (1) Asymptomatic bradycardia: 83-year-old woman with stage IV CKD and atrial fibrillation with multiple recent hospital admissions. She has had ongoing failure to thrive related to anorexia with significant weight loss last 6 months. In ED she was bradycardic with heart rate low of 27. She does take metoprolol xl 200 mg twice daily at home. This was held and bradycardia resolved seen [place] [facility] [place] - likely underlying conduction disease in the setting of permanent a.fib and very large dose of meto succ discharged with metoprolol succinate 50 mg twice daily which she is tolerating cont Eliquis 2.5mg BID (2) Fever: she had a few low-grade temps all below 38.0. These were asymptomatic COVID negative on 02/02 COVID/flu/RSV on day of admission negative urinalysis slightly abnormal but no dysuria and urine culture two-view chest x-ray today was negative for any focal infiltrates with report of dry cough diarrhea ( now resolved) and slight thrombocytopenia it is probably related to a mild viral illness (3) Anorexia: (4) Anemia of chronic disease: Chronic; Hgb 8.7 on arrival 2nd to CKD stage 5 H/H acceptable follow-up with patent paralegal (5) Congestive heart failure: chronic HF with preserved EF certainly her CKD stage 5 contributes to volume issues bradycardia may have contributed to recent dyspnea at home continue Bumex 0.5 mg daily continue metoprolol BID (6) Chronic kidney disease: stage 5 baseline Cr high 2's baseline CrCl about 15 renal function remained stable (7) Type 2 diabetes mellitus: Last A1c at 5.5% on 01/18/2024 (8) Diarrhea: Negative C. difficile/stool Biofire panel recent CT a/p without colonic abnormalities to explain diarrhea - resolved (9) Colon cancer: Follows with [facility] Patient has upcoming Procrit appointment on Monday 02/05 last CEA was 10/2023 - wnl right-sided hemicolectomy 2020 - Dr Quiroga last colonoscopy - 06/2022 - multiple polyps removed in light of diarrhea, weight loss, colon ca history, etc - needs colonoscopy soon; currently scheduled for 03/[address] Driscoll stool biofire and c diff testing all negative (10) Atrial fibrillation: Continue Eliquis, metoprolol dose reduced as discussed above (11) Severe protein-calorie malnutrition: with ongoing chronic anorexia, denies nausea or abdominal pain 90-100kg weight about 4-6 months ago now ~80kg check a B1 level - still pending added nephrocaps added thiamine daily - send home with both GI consultation appreciated dietary consult appreciated speech therapy consult for swallow evaluation appreciated; did well w/o any issues GI consulted due to malnutrition, weight loss, diarrhea, etc. - recommended follow-up with Dr. Driscoll as planned for colonoscopy in March we also communicated with him to do EGD as well at that time last EGD - 2020 with gastritis this could be related to progression of her CKD, also if she is having bradycardias at home that would make her feel poorly counseled to continue having boost or Ensure once a day and a protein bar once a day, she likes the idea of using peanut butter crackers for snack added low-dose mirtazapine at at bedtime to see if this will improve appetite Admission HPI Per Admitting Provider Patricia is an 83-year-old female with PMH of HFpEF, DVT, breast cancer, osteoporosis, colon cancer, CABG, paroxysmal atrial fibrillation (on Eliquis), and anemia of chronic disease. She presented on 01/30 for worsening SOB and diarrhea over the past week. While family is not at bedside at time of admission, patient is able to provide history. She reports she has been having worsening SOB both at rest and with exertion over the last few days. The shortness of breath at rest is new for her. No orthopnea. However, she does endorse conversational dyspnea, and reports that she "runs out of breath just talking". No sick contacts. No supplemental oxygen at baseline. No CPAP. No history of asthma or COPD. Patient denies smoking, tobacco use, recent alcohol use. Patient took her regular morning medications today. She reports that her Bumex dosage was changed upon recent hospital discharge (was taking 2 tablets/day, but was changed to 1 tablet/day). Patient knows what she takes on daily basis, but does not live with her daughter (Elena) who helps manage her medications at home. Additionally, patient has had diarrhea for the past 2 weeks. She denies bloody diarrhea. Liquidy in consistency. While she has not been on an extended course of antibiotics, she does note she had 1 dose of antibiotics during her last admission for presumed UTI. Patient reports that she has not been eating well over the past few months. She reports that whenever she eats it feels like food is going to "choke her". She does not have problems swallowing fluids, but does have a hard time swallowing her pills. All she has loss of appetite, she does watch her salt intake and reports no change in weight recently. She weighs herself daily. No increased swelling in her legs. ED course: ROS: Patient endorses fatigue, SOB at rest (new for her), HOPPER, conversational dyspnea, dry cough, and liquidy diarrhea (x 2 weeks). Patient denies fever, chills, night-sweats, dizziness/lightheadedness, headaches, chest pain, chest palpitations, pleuritic CP, orthopnea, hemoptysis, abdominal pain, N/V, blood in stool, burning with urination, dysuria, or leg swelling. Discharge Exam PHYSICAL EXAMINATION Last 24h vital signs reviewed, see documentation in flowsheet General: comfortable appearing, no distress HEENT: Normocephalic, atraumatic, pupils round and equal, sclerae anicteric, no conjunctival injection, moist mucus membranes Lungs: Normal respiratory effort. Clear to auscultation bilaterally. No RRW Heart: Regular rate and rhythm, no murmurs. No JVD Abdomen: Soft, nontender, nondistended. Bowel sounds present. Extremities: Warm, dry, well-perfused. No extremity edema. Neuro: Alert and oriented x 4, face symmetric, moves 4 extremities well Psych: Normal affect and behavior Discharge Plan Discharge Items Patient Disposition: Home - Self-Care Reason For Visit: BRADYCARDIA, SOB Discharge Diagnosis: Bradycardia, anorexia Activity: Resume your previous activity Non-emergency contact: Primary Care Provider and Patternmaker Sample Call non-emergency contact if: you have any medication questions and your symptoms worsen Follow-up/Referrals: Isaura Rashid CRNP [Primary Care Provider] - 02/14/24 10:30 am (Hospital follow up scheduled for February 14, 2024 at 10:30am.) Diet: Regular Addtl Attending Provider Instructions: Your heart rate was very low This was triggered by metoprolol We reduced your dose significantly I think you'll feel better on a lower dose For low appetite Follow up as scheduled in March for endoscopies - we asked Dr Driscoll to do both colonoscopy and EGD (upper endoscopy) Try taking mirtazapine at bedtime - this can help with appetite, mood, and sleep. The dose can be increased to 15 mg if necessary. Take protein supplement twice a day - a high protein BOOST or ensure plus a protein bar is a good combo Eating a snack of peanut butter and crackers every day is also a good idea It was a pleasure taking care of you in the hosital, Charlene Vicente MD Pending Studies at Discharge: Yes (B1 level) Stand-Alone Forms: [facility], Smoking Cessation Medications and DC Order Prescriptions: New metoprolol succinate 50 mg capsule,sprinkle,ER 24hr 50 mg PO BID Qty: 60 0RF Renal Caps 1 mg Capsule 1 cap PO QAM Qty: 30 0RF thiamine HCl (vitamin B1) 100 mg Tablet 200 mg PO QAM Qty: 0 0RF Rx Instructions: buy over the counter mirtazapine 7.5 mg tablet 7.5 mg PO HS Qty: 30 0RF Continued Procrit 2,000 unit/mL solution 0 unit subcut Q14D Rx Instructions: Unable to verify medication with pharmacy/patient at this date/time. Original Directions: 2000units subcut every 14 days atorvastatin 40 mg tablet 40 mg PO HS Qty: 90 3RF cilostazol 100 mg tablet 100 mg PO BID Qty: 180 3RF Rx Instructions: TAKE 1 TABLET TWICE A DAY calcitriol [Rocaltrol] 0.25 mcg capsule 0.25 mcg PO DAILY Qty: 90 3RF insulin aspart U-100 [Novolog FlexPen U-100 Insulin] 100 unit/mL (3 mL) insulin pen See Rx Instructions SQ TID Qty: 60 3RF Rx Instructions: use per sliding scale up to 60 units daily SQ isosorbide mononitrate 60 mg tablet extended release 24 hr 60 mg PO QAM Qty: 90 3RF Rx Instructions: TOTAL DOSE 90 MG--TAKES WITH 30 MG TAB. isosorbide mononitrate 30 mg tablet extended release 24 hr 30 mg PO QAM Qty: 90 3RF Rx Instructions: TOTAL DOSE 90 MG--TAKES WITH 60 MG TAB. alendronate [Fosamax] 70 mg tablet 70 mg PO WK Qty: 12 3RF Rx Instructions: SUNDAYS Eliquis 2.5 mg tablet 2.5 mg PO BID Qty: 180 3RF (DME) pen needle, diabetic [BD Ultra-Fine Short Pen Needle] 31 gauge x 5/16" needle See Dose Instructions .ROUTE .MEDSUPPLY Qty: 30 Rx Instructions: use 1 needle 4 x daily omega 2-sat-daz-fish oil [Fish Oil] 1,000 mg (120 mg-180 mg) Capsule 1 cap PO QPM Rx Instructions: Unable to verify OTC meds at this date/time. cyanocobalamin (vitamin B-12) 1,000 mcg Capsule 1,000 mcg PO QAM Rx Instructions: Unable to verify OTC meds at this date/time. magnesium oxide 400 mg Capsule 400 mg PO BID Rx Instructions: Unable to verify OTC meds at this date/time. hydralazine 100 mg tablet 0 mg PO TID Rx Instructions: Unable to verify medication with pharmacy/patient at this date/time. Original Directions: 100mg by mouth TID insulin glargine [Lantus Solostar U-100 Insulin] 100 unit/mL (3 mL) insulin pen See Rx Instructions .ROUTE .COMPLEX Rx Instructions: Per mailorder: 39 units at bedtime. However, previously confirmed on 01/20/24 as 10units at bedtime. Unable to verify w/ patient at date/time how many units they actually inject. PT STATES SHE IS TAKING 5 UNITS HS 01/31/24 bumetanide 0.5 mg tablet 0.5 mg PO DAILY Qty: 120 3RF Discontinued metoprolol succinate 200 mg tablet extended release 24 hr 200 mg PO BID Qty: 180 3RF Discharge Orders: Discharge Order (Routine); Ordered 02/05/24 Ordered By: Charlene Vicente Admission Data Admit Date/Time: 01/31/24 20:20 Attending Provider: Charlene Vicente Admit Provider: John Holland Primary Care Provider: Isaura Rashid Other Providers: John Holland; Marvin Can; Ayush Carrera; Jaswinder Valencia; Jean Carlos Driscoll; Caryn Shearer; Meseret Ronquillo; Mary Spann; Kenzie Salinas; Christiana Johnston; Nirmal Caicedo; Luc Tyson; Nitish Reeder; Alice Zurita; Romario Lennon; Jodi Reese; Maddy Huff; Mari Gilbert; Nazia Hinkle; Blanca Swenson; Oziel Baxter; Kyung Forte; Ally Mayers Jr; Ras Marroquin; Isaac Liu; Horacio Mckeon; Chantale Danielle; Dilip Trujillo I; Lucila Ovalles Other Interventions: Discharge Summary Assessment (RN) Last Done: 02/05/24 11:21 Hospital Stay Data Consultations 01/31/24 18:13 ED Decision to Admit Stat 01/31/24 22:14 Consult Cardiology Routine 02/01/24 13:40 Consult Gastroenterology Routine 02/02/24 12:14 Consult Nutrition Routine Pending Results Patient Have Any Pending Studies at Discharge: Yes (B1 level) Discharge Instructions Given to Patient (Per Discharging Provider) Your heart rate was very low This was triggered by metoprolol We reduced your dose significantly I think you'll feel better on a lower dose For low appetite Follow up as scheduled in March for endoscopies - we asked Dr Driscoll to do both colonoscopy and EGD (upper endoscopy) Try taking mirtazapine at bedtime - this can help with appetite, mood, and sleep. The dose can be increased to 15 mg if necessary. Take protein supplement twice a day - a high protein BOOST or ensure plus a protein bar is a good combo Eating a snack of peanut butter and crackers every day is also a good idea It was a pleasure taking care of you in the hosital, Charlene Vicente MD Total Time Total Time Spent Total Time Spent (In Minutes): <30 Coding Level of Care Code 01285 IN/OBS DISCH 30 MIN/LESS Diagnoses Asymptomatic bradycardia R00.1 Fever R50.9 Anorexia R63.0 Anemia of chronic disease D63.8 Congestive heart failure I50.9 Heart failure chronicity: acute on chronic Heart failure type: unspecified Chronic kidney disease N18.9 Chronic kidney disease stage: unspecified stage Type 2 diabetes mellitus E11.9 Diarrhea R19.7 Colon cancer C18.9 Atrial fibrillation I48.91 Severe protein-calorie malnutrition E43
--- NOTE | 2024-02-05 17:46 | Hospitalist Progress Note ---
Date of Service February 05, 2024 Assessment & Plan (1) Asymptomatic bradycardia: Plan: 83-year-old woman with stage IV CKD and atrial fibrillation with multiple recent hospital admissions. She has had ongoing failure to thrive related to anorexia with significant weight loss last 6 months. In ED she was bradycardic with heart rate low of 27. She does take metoprolol xl 200 mg twice daily at home. This was held and bradycardia resolved seen by [facility] [place] [facility] - likely underlying conduction disease in the setting of permanent a.fib and very large dose of meto succ discharged with metoprolol succinate 50 mg twice daily which she is tolerating cont Eliquis 2.5mg BID (2) Fever: Plan: she had a few low-grade temps all below 38.0. These were asymptomatic COVID negative on 02/02 COVID/flu/RSV on day of admission negative urinalysis slightly abnormal but no dysuria and urine culture two-view chest x-ray today was negative for any focal infiltrates with report of dry cough diarrhea ( now resolved) and slight thrombocytopenia it is probably related to a mild viral illness (3) Anorexia: (4) Anemia of chronic disease: Plan: Chronic; Hgb 8.7 on arrival 2nd to CKD stage 5 H/H acceptable follow-up with transportation coordinator (5) Congestive heart failure: Plan: chronic HF with preserved EF certainly her CKD stage 5 contributes to volume issues bradycardia may have contributed to recent dyspnea at home continue Bumex 0.5 mg daily continue metoprolol BID (6) Chronic kidney disease: Plan: stage 5 baseline Cr high 2's baseline CrCl about 15 renal function remained stable (7) Type 2 diabetes mellitus: Plan: Last A1c at 5.5% on 01/18/2024 (8) Diarrhea: Plan: Negative C. difficile/stool Biofire panel recent CT a/p without colonic abnormalities to explain diarrhea - resolved (9) Colon cancer: Plan: Follows with [facility] Patient has upcoming Procrit appointment on Monday 02/05 last CEA was 10/2023 - wnl right-sided hemicolectomy 2020 - Dr Quiroga last colonoscopy - 06/2022 - multiple polyps removed in light of diarrhea, weight loss, colon ca history, etc - needs colonoscopy soon; currently scheduled for 03/[address] Driscoll stool biofire and c diff testing all negative (10) Atrial fibrillation: Plan: Continue Eliquis, metoprolol dose reduced as discussed above (11) Severe protein-calorie malnutrition: Plan: with ongoing chronic anorexia, denies nausea or abdominal pain 90-100kg weight about 4-6 months ago now ~80kg check a B1 level - still pending added nephrocaps added thiamine daily - send home with both GI consultation appreciated dietary consult appreciated speech therapy consult for swallow evaluation appreciated; did well w/o any issues GI consulted due to malnutrition, weight loss, diarrhea, etc. - recommended follow-up with Dr. Driscoll as planned for colonoscopy in March we also communicated with him to do EGD as well at that time last EGD - 2020 with gastritis this could be related to progression of her CKD, also if she is having bradycardias at home that would make her feel poorly counseled to continue having boost or Ensure once a day and a protein bar once a day, she likes the idea of using peanut butter crackers for snack added low-dose mirtazapine at at bedtime to see if this will improve appetite Admission and Anticipated Discharge Date Admission Date: January 31, 2024 Subjective feels fine today and requests to go home has occasional dry cough that is nonproductive she does not feel short of breath no dysuria she simply has low appetite does not have nausea or abdominal pain she denies any symptoms of depression such as low mood or trouble sleeping Physical Exam 2 Physical Exam: PHYSICAL EXAMINATION Last 24h vital signs reviewed, see documentation in flowsheet General: comfortable appearing, no distress HEENT: Normocephalic, atraumatic, pupils round and equal, sclerae anicteric, no conjunctival injection, moist mucus membranes Lungs: Normal respiratory effort. Clear to auscultation bilaterally. No RRW Heart: Regular rate and rhythm, no murmurs. No JVD Abdomen: Soft, nontender, nondistended. Bowel sounds present. Extremities: Warm, dry, well-perfused. No extremity edema. Neuro: Alert and oriented x 4, face symmetric, moves 4 extremities well Psych: Normal affect and behavior Results & Data Results & Data Vital Signs (Past 12 Hours) Vital Signs Temp Pulse Pulse Resp BP Pulse Ox O2 Del Method 02/05/24 10:59 Room Air 02/05/24 09:13 72 02/05/24 07:44 37.3 C 95 H 14 175/63 H 93 Room Air Laboratory Results 02/05/24 06:26 02/05/24 06:26 Diagnostic Findings Chest X-Ray 02/05/24 07:00 XR chest 2V PA/lateral HISTORY: 83 years-old Female recent fever, cough acute cough and fever COMPARISON: 01/31/2024 TECHNIQUE: PA and lateral views of the chest FINDINGS: Cardiac silhouette is enlarged. Median sternotomy with CABG. Bony vascular congestion with interstitial coarsening. Small pleural effusions with bibasilar densities again noted. No pneumothorax. Bones appear intact. IMPRESSION: 1. Cardiomegaly with unchanged interstitial pulmonary edema. 2. Small pleural effusions with persistent mild bibasilar opacities, likely atelectatic. ACT 112: Negative or not required by law. The above report was generated using voice recognition software. It may contain grammatical, syntax or spelling errors. Electronically signed by: Pancho Alvarado M.D. 02/05/2024 10:15 AM PG Care Time/CCT Total # of Minutes Spent Total Time Spent with Patient: Total time spent is greater than 50% in coordination of care (as documented) at patient's floor/unit and/or counseling patient: Coding Level of Care Code None Diagnoses Asymptomatic bradycardia R00.1 Fever R50.9 Anorexia R63.0 Anemia of chronic disease D63.8 Congestive heart failure I50.9 Heart failure chronicity: acute on chronic Heart failure type: unspecified Chronic kidney disease N18.9 Chronic kidney disease stage: unspecified stage Type 2 diabetes mellitus E11.9 Diarrhea R19.7 Colon cancer C18.9 Atrial fibrillation I48.91 Severe protein-calorie malnutrition E43 (5) Congestive heart failure Heart failure chronicity: acute on chronic Heart failure type: unspecified Qualified Code(s): I50.9 - Heart failure, unspecified (6) Chronic kidney disease Chronic kidney disease stage: unspecified stage Qualified Code(s): N18.9 - Chronic kidney disease, unspecified
== END 2024-02-05 14:10 | disposition home or self-care (01) | DRG 308 ==
LOC: ED 12:34 → SUATTDRO 20:20 → 2S 20:20